=== PATIENT | male | born 1940 | race Caucasian/White ===

== ENCOUNTER → 2017-02-14 | Outpatient (POV) | payer MEDICARE, OTHER, SELFPAY | PROVIDERS: Referring Provider Internal Medicine; Visit Provider Internal Medicine | DX: R06.09 Other forms of dyspnea (principal); I48.91 Unspecified atrial fibrillation; I25.10 Atherosclerotic heart disease of native coronary artery without angina pectoris; R00.2 Palpitations; R94.31 Abnormal electrocardiogram [ECG] [EKG]; R53.83 Other fatigue | CPT/HCPCS: 36415; 85025; 93005 ==

== ENCOUNTER 2017-02-22 13:30 | Outpatient (RCR) | payer MEDICARE, OTHER, SELFPAY | END 2017-02-22 23:59 | LOC: PT 13:30 | PROVIDERS: Visit Provider Internal Medicine | DX: Z95.5 Presence of coronary angioplasty implant and graft (principal) | CPT/HCPCS: 93798 ==

== ENCOUNTER → 2017-02-27 09:50 | Outpatient (CLI) | payer MEDICARE, OTHER, SELFPAY ==
[2017-02-27 10:52] VITALS: PULSE 73; PULSE 77
== END ==
PROVIDERS: PCP Emergency Medicine; Visit Provider Internal Medicine
DX: R06.00 Dyspnea, unspecified (principal); I25.10 Atherosclerotic heart disease of native coronary artery without angina pectoris
CPT/HCPCS: 94060; 94640; 94726; 94729

== ENCOUNTER → 2017-06-19 15:56 | Outpatient (REF) | payer MEDICARE, SELFPAY ==
[2017-06-19 18:54] LABS: Basophils # 0.1 K/mm3 (0-0.2); Basophils % 0.8 % (0.1-2.0); Eosinophils # 0.4 K/mm3 (0.0-0.4); Eosinophils % 4.2 % (0.1-12.0); Hematocrit 44.6 % (42.0-52.0); Hemoglobin 14.5 g/dL (14.1-18.0); Lymphocytes # 1.4 K/mm3 (0.7-4.5); Lymphocytes % 16.7 K/mm3 (10-50); Mean Corpuscular HGB Conc 32.5 g/dL (31.8-35.4); Mean Corpuscular Hemoglobin 30.7 pg (27.0-31.2); Mean Corpuscular Volume 94.5 fl (80-94); Mean Platelet Volume 7.7 fl (7.4-10.4); Monocytes # 0.5 K/mm3 (0.1-1.0); Monocytes % 5.7 % (1.7-9.3); Neutrophils # 6.2 K/mm3 (1.8-7.8); Neutrophils % 72.6 % (37.0-80.0); Platelet Count 237 K/mm3 (142-424); Red Blood Count 4.72 M/mm3 (4.60-6.20); Red Cell Distribution Width 13.7 % (11.5-17.5); White Blood Count 8.6 K/mm3 (4.8-10.8)
[2017-06-19 20:28] LABS: Alanine Aminotransferase 46 U/L (12-78); Albumin Level 3.6 gm/dL (3.4-5.0); Albumin/Globulin Ratio 0.9 (1.1-1.8); Alkaline Phosphatase 178 U/L (46-116); Anion Gap 14.3 mEq/L (5-15); Aspartate Amino Transferase 35 U/L (15-37); Bilirubin,Total 0.5 mg/dL (0.2-1.0); Blood Urea Nitrogen 20 mg/dL (7-18); Calcium 9.3 mg/dL (8.5-10.1); Carbon Dioxide 25 mmol/L (21.0-32.0); Chloride 108 mmol/L (98-107); Creatinine,Serum 1.58 mg/dL (0.70-1.30); Estimated Glomerular Filt Rate 43 ml/min (>60); Free T4 (Free Thyroxine) 0.96 ng/dl (0.76-1.46); GFR (African American) 52 ML/MIN (>60); Globulin 3.8 gm/dl (1.3-3.2); Glucose 95 mg/dL (74-106); Potassium 4.3 mmoL/L (3.5-5.1); Sodium 143 mmol/L (136-145); Thyroid Stimulating Hormone 5.85 uIU/ml (0.358-3.740); Total Protein,Serum 7.4 gm/dL (6.4-8.2)
[2017-06-19 20:32] LABS: Erythrocyte Sedimentation Rate 16 mm/hr (0-20)
== END ==
LOC: LAB 15:56
PROVIDERS: Visit Provider Emergency Medicine
DX: Z77.22 Contact with and (suspected) exposure to environmental tobacco smoke (acute) (chronic) (principal); E07.9 Disorder of thyroid, unspecified; R53.83 Other fatigue
CPT/HCPCS: 80053; 84439; 84443; 85025; 85651

== ENCOUNTER → 2017-08-13 12:50 | Outpatient (CLI) | payer MEDICARE, OTHER, SELFPAY ==
--- NOTE | 2017-08-13 12:51 | MR_ITS ---
MR cervical spine wo con, MR 3-d myelogram/MRCP HISTORY: PT states he has been off balance X2-3 years. No neck pain. Off balance is worse when standing. ITS.REASON: neck pain ORDERING PHYSICIAN: Alexa Pratt MD PATIENT AGE: 77 years Comparison: None TECHNIQUE: Standard multiplanar multiecho sequences are performed without contrast. 3-D MIP and myelographic images are also rendered and reviewed FINDINGS: There is normal alignment with straightening of the cervical lordosis. Craniocervical junction has an unremarkable appearance. There is multilevel cervical spondylosis as described below. C2-C3: Mild degenerative disc disease C3-C4: Degenerative disc disease with bulging disc and a small broad-based left paracentral disc osteophyte complex with canal stenosis of 10 mm. There is severe left lateral recess and foraminal narrowing There is bilateral lateral recess and foraminal narrowing. This is worse on the left C4-C5: Degenerative disc disease with bulging disc with canal stenosis of 9 mm. The disc is slightly eccentric toward the right with moderate to severe right lateral recess and foraminal narrowing C5-C6: Degenerative disc disease with bulging disc with endplate osteophytes severe canal stenosis of 6 mm. There is mild compression upon the cord at this level with some Kinking of the cord. Severe bilateral lateral recess narrowing slightly greater on the right with bilateral foraminal narrowing. Type I endplate changes are present at C5-C6 C6-C7: Degenerative disc disease. There is a small right paracentral and foraminal disc protrusion/disc osteophyte complex with severe right-sided foraminal narrowing. There is moderate to severe left foraminal narrowing from uncovertebral hypertrophy. C7-T1: There is a small central disc herniation without impingement upon the cord. IMPRESSION: 1. Abnormal MRI of the cervical fine with multilevel degenerative disc disease and facet and uncovertebral arthrosis with bulging discs and disc protrusions/disc osteophyte complexes with varying levels of canal stenosis and lateral recess and foraminal narrowing. Please see above for detailed description at each level 2. The canal stenosis is most severe at C5-C6 where there is mild compression upon the cord with some keeping of the cord. The canal this level measures 6 mm. 3. Small central disc herniation at C7-T1 without impingement
[2017-08-15 13:55] LABS: Homocyst(e)ine 13.8 umol/L (0.0-15.0); Rapid Plasma Reagin Ab Titer Non Reactive (NonRea<1:1)
[2017-08-15 13:56] LABS: Folate 16.7 ng/mL (>3.0); Vitamin B12 465 pg/mL (232-1245)
[2017-08-15 15:26] LABS: Albumin 3.3 g/dL (2.9-4.4); Alpha-1-Globulin 0.3 g/dL (0.0-0.4); Alpha-2-Globulin 0.8 g/dL (0.4-1.0); Gamma Globulin 1.2 g/dL (0.4-1.8); Protein, Total 6.7 g/dL (6.0-8.5)
== END ==
PROVIDERS: PCP Emergency Medicine; Visit Provider Specialist
DX: M47.12 Other spondylosis with myelopathy, cervical region (principal); I25.10 Atherosclerotic heart disease of native coronary artery without angina pectoris; E07.9 Disorder of thyroid, unspecified; R26.0 Ataxic gait; N28.9 Disorder of kidney and ureter, unspecified; Z95.5 Presence of coronary angioplasty implant and graft
CPT/HCPCS: 36415; 72141; 76376; 82607; 82746; 83090; 84155; 84165; 86592

== ENCOUNTER → 2017-09-09 10:51 | Outpatient (POV) | payer MEDICARE, OTHER, SELFPAY | PROVIDERS: PCP Emergency Medicine; Visit Provider Specialist | DX: M47.12 Other spondylosis with myelopathy, cervical region (principal); R26.0 Ataxic gait | CPT/HCPCS: 95886; 95911 ==

== ENCOUNTER → 2017-10-03 13:28 | Outpatient (POV) | payer MEDICARE, SELFPAY | PROVIDERS: Visit Provider Neurological Surgery | DX: Z00.00 Encounter for general adult medical examination without abnormal findings (principal) ==

== ENCOUNTER → 2017-11-13 11:09 | Outpatient (CLI) | payer MEDICARE, SELFPAY ==
[2017-11-13 11:21] LABS: Microscopic, Urine URINE MICROSCOPIC (MICROSCOPIC)
[2017-11-13 11:42] LABS: Basophils # 0.1 K/mm3 (0-0.2); Basophils % 0.8 % (0.1-2.0); Eosinophils # 0.5 K/mm3 (0.0-0.4); Eosinophils % 7.7 % (0.1-12.0); Hematocrit 45.1 % (42.0-52.0); Hemoglobin 14.5 g/dL (14.1-18.0); Lymphocytes # 1.4 K/mm3 (0.7-4.5); Lymphocytes % 22.4 K/mm3 (10-50); Mean Corpuscular HGB Conc 32.1 g/dL (31.8-35.4); Mean Corpuscular Hemoglobin 29.8 pg (27.0-31.2); Mean Corpuscular Volume 92.8 fl (80-94); Mean Platelet Volume 7.3 fl (7.4-10.4); Monocytes # 0.3 K/mm3 (0.1-1.0); Monocytes % 5.7 % (1.7-9.3); Neutrophils # 3.9 K/mm3 (1.8-7.8); Neutrophils % 63.4 % (37.0-80.0); Platelet Count 227 K/mm3 (142-424); Red Blood Count 4.86 M/mm3 (4.60-6.20); Red Cell Distribution Width 13.3 % (11.5-17.5); White Blood Count 6.1 K/mm3 (4.8-10.8)
[2017-11-13 12:15] LABS: Albumin Level 3.4 gm/dL (3.4-5.0); Anion Gap 13.3 mEq/L (5-15); Blood Urea Nitrogen 15 mg/dL (7-18); Calcium 8.8 mg/dL (8.5-10.1); Carbon Dioxide 25 mmol/L (21.0-32.0); Chloride 107 mmol/L (98-107); Creatinine,Serum 1.61 mg/dL (0.70-1.30); Estimated Glomerular Filt Rate 42 ml/min (>60); GFR (African American) 51 ML/MIN (>60); Glucose 102 mg/dL (74-106); Phosphorous 3.2 mg/dL (2.4-4.9); Potassium 4.3 mmoL/L (3.5-5.1); Sodium 141 mmol/L (136-145)
[2017-11-13 14:04] LABS: Appearance,Urine CLEAR (Clear); Bilirubin,Urine Negative (Negative); Blood, Urine Negative (Negative); Color,Urine YELLOW (Yellow); Glucose,Urine (UA) Negative (Negative); Ketones,Urine Negative (Negative); Leukocyte Esterase,Urine Negative (Negative); Nitrate,Urine Negative (Negative); PH,Urine 6.5 (5.0-8.5); Protein,Urine Negative (Negative); Urobilinogen,Urine 0.2 EU/dl (0.2)
[2017-11-13 14:15] LABS: Creatinine,Urine Random 139 mg/dL (20-320); Total Protein,Urine Random 15.9 mg/dL (0.0-11.9)
[2017-11-13 14:16] LABS: Bacteria,Urine Trace /lpf
[2017-11-14 08:36] LABS: Vitamin D 25 Hydroxy 34.3 ng/mL (30.0-100.0)
[2017-11-14 16:21] LABS: Parathyroid Hormone Intact 17 pg/mL (15-65)
== END ==
PROVIDERS: PCP Emergency Medicine; Visit Provider Internal Medicine Nephrology
DX: N18.3 Chronic kidney disease, stage 3 (moderate) (principal)
CPT/HCPCS: 36415; 80069; 81001; 82570; 82652; 83970; 84155; 85025

== ENCOUNTER → 2017-11-21 13:19 | Outpatient (POV) | payer MEDICARE, SELFPAY | PROVIDERS: PCP Emergency Medicine; Visit Provider Internal Medicine Nephrology | DX: Z00.00 Encounter for general adult medical examination without abnormal findings (principal) ==

== ENCOUNTER 2018-04-30 15:00 | Outpatient (RCR) | payer MEDICARE, OTHER, SELFPAY | END 2018-04-30 15:05 | disposition home or self-care (01) | LOC: PT 15:00 | PROVIDERS: Visit Provider Neurological Surgery | DX: R26.89 Other abnormalities of gait and mobility (principal) | CPT/HCPCS: 97110; 97112; 97163 ==

== ENCOUNTER → 2018-05-06 12:48 | Outpatient (CLI) | payer MEDICARE, OTHER, SELFPAY ==
--- NOTE | 2018-05-06 12:53 | US_ITS ---
US kidney retroperitoneal comp HISTORY: Decreased renal function ITS.REASON: CKD III ORDERING PHYSICIAN: Richard Chauhan PATIENT AGE: 77 years Comparison: None FINDINGS: The right kidney is 10 x 4.6 cm. There is cortical thinning and some increase echogenicity of the cortex. No hydronephrosis. Small area of increased echogenicity present in the mid area of the right kidney posteriorly suggesting a calcification. The left kidney is 13 x 5 x 4 cm. In the midportion of left kidney there is a 6 x 6 cm area of rounded isoechogenicity. This is suspicious for left renal mass. Prominent column of Alberto is an additional consideration. Consider MRI of the kidneys without and with gadolinium enhancement for further evaluation in this patient with decreased renal function. No hydronephrosis. Cortical thinning is present on the left as well IMPRESSION: 1. Possible left renal mass. Suggest MRI without and with gadolinium enhancement for further evaluation 2. Bilateral renal cortical thinning with nonspecific calcification in the mid aspect of the right kidney
== END ==
PROVIDERS: PCP Emergency Medicine; Visit Provider Internal Medicine Nephrology
DX: N18.3 Chronic kidney disease, stage 3 (moderate) (principal)
CPT/HCPCS: 76770

== ENCOUNTER → 2018-05-26 10:05 | Outpatient (CLI) | payer MEDICARE, OTHER, SELFPAY ==
[2018-05-26 10:08] LABS: MANUAL DIFFERENTIAL MANUAL DIFFERENTIAL (MANUAL DIFF)
[2018-05-26 10:21] LABS: Basophils # 0.1 K/mm3 (0-0.2); Eosinophils # 1.1 K/mm3 (0.0-0.4); Eosinophils % 12.9 % (0.1-12.0); Hematocrit 46.1 % (42.0-52.0); Hemoglobin 15.4 g/dL (14.1-18.0); Lymphocytes # 1.8 K/mm3 (0.7-4.5); Lymphocytes % 22.2 % (10-50); Mean Corpuscular HGB Conc 33.4 g/dL (31.8-35.4); Mean Corpuscular Hemoglobin 30.1 pg (27.0-31.2); Mean Corpuscular Volume 90.2 fl (80-94); Monocytes # 0.4 K/mm3 (0.1-1.0); Monocytes % 4.3 % (1.7-9.3); Neutrophils # 4.9 K/mm3 (1.8-7.8); Neutrophils % 59.5 % (37.0-80.0); Platelet Count 234 K/mm3 (142-424); Red Blood Count 5.11 M/mm3 (4.60-6.20); Red Cell Distribution Width 13.9 % (11.5-17.5); White Blood Count 8.3 K/mm3 (4.8-10.8)
[2018-05-26 10:33] LABS: Troponin I < 0.02 ng/ml (0.00-0.06)
[2018-05-26 10:53] LABS: Eosinophils % 3 % (0-3); Lymphocytes % 18 % (10-50); Monocytes % 6 % (2-9); Neutrophils % 72 % (42-76); Platelet Estimate Normal; RBC Morphology Normal; Total Cells Counted 100
[2018-05-26 11:20] LABS: Anion Gap 17.1 mEq/L (5-15); Blood Urea Nitrogen 20 mg/dL (7-18); Calcium 9.3 mg/dL (8.5-10.1); Carbon Dioxide 24 mmol/L (21.0-32.0); Chloride 106 mmol/L (98-107); Creatinine,Serum 1.73 mg/dL (0.70-1.30); Estimated Glomerular Filt Rate 39 ml/min (>60); GFR (African American) 47 ML/MIN (>60); Glucose 104 mg/dL (74-106); Potassium 4.1 mmoL/L (3.5-5.1); Sodium 143 mmol/L (136-145)
== END ==
PROVIDERS: Visit Provider Nurse Practitioner Family
DX: E78.2 Mixed hyperlipidemia (principal); I10 Essential (primary) hypertension; I25.10 Atherosclerotic heart disease of native coronary artery without angina pectoris; R06.09 Other forms of dyspnea; R53.83 Other fatigue; Z77.22 Contact with and (suspected) exposure to environmental tobacco smoke (acute) (chronic); Z95.5 Presence of coronary angioplasty implant and graft
CPT/HCPCS: 36415; 80048; 84484; 85007; 85014; 85018; 85048; 85049

== ENCOUNTER 2018-06-03 12:54 | Outpatient (RCR) | payer MEDICARE, OTHER, SELFPAY | END 2018-08-29 13:12 | disposition home or self-care (01) | LOC: PT 12:54 | PROVIDERS: Visit Provider Internal Medicine | DX: Z95.5 Presence of coronary angioplasty implant and graft (principal) | CPT/HCPCS: 93798 ==

== ENCOUNTER → 2018-06-05 12:54 | Outpatient (CLI) | payer MEDICARE, OTHER, SELFPAY ==
--- NOTE | 2018-06-05 14:35 | XR_ITS ---
XR chest 2V HISTORY: ITS.REASON: SOB, ORDERING PHYSICIAN: Bret Shane MD PATIENT AGE: 78 years COMPARISON: None FINDINGS: The cardiomediastinal silhouette and pulmonary vascularity are within normal limits. There is a asymmetric density in right apex measuring 18 mm overlying the medial shaft of the right clavicle in the right first rib. While this could be related to a rib lesion, underlying pulmonary nodules also considered and chest CT is suggested for further evaluation. There are coronary artery stents. The remaining lungs are clear. No acute bony findings. There is mild wedging involving the T12 vertebral body which may be old. IMPRESSION: Spiculated 18 nodular density right apex suspicious for pulmonary nodule/neoplasm versus overlying rib lesion. Suggest chest CT with contrast for further evaluation
[2018-06-05 14:49] LABS: Basophils # 0.1 K/mm3 (0-0.2); Basophils % 1.5 % (0.1-2.0); Eosinophils # 0.4 K/mm3 (0.0-0.4); Eosinophils % 7.3 % (0.1-12.0); Hematocrit 45.3 % (42.0-52.0); Hemoglobin 14.8 g/dL (14.1-18.0); Lymphocytes # 1.6 K/mm3 (0.7-4.5); Lymphocytes % 25.7 % (10-50); Mean Corpuscular HGB Conc 32.6 g/dL (31.8-35.4); Mean Corpuscular Hemoglobin 29.5 pg (27.0-31.2); Mean Corpuscular Volume 90.4 fl (80-94); Mean Platelet Volume 7.2 fl (7.4-10.4); Monocytes # 0.3 K/mm3 (0.1-1.0); Monocytes % 4.6 % (1.7-9.3); Neutrophils # 3.7 K/mm3 (1.8-7.8); Neutrophils % 60.8 % (37.0-80.0); Platelet Count 258 K/mm3 (142-424); Red Blood Count 5.01 M/mm3 (4.60-6.20); Red Cell Distribution Width 14.1 % (11.5-17.5); White Blood Count 6.1 K/mm3 (4.8-10.8)
[2018-06-05 16:19] LABS: Anion Gap 16.2 mEq/L (5-15); Blood Urea Nitrogen 18 mg/dL (7-18); Calcium 9.2 mg/dL (8.5-10.1); Carbon Dioxide 23 mmol/L (21.0-32.0); Chloride 105 mmol/L (98-107); Creatinine,Serum 1.72 mg/dL (0.70-1.30); Estimated Glomerular Filt Rate 39 ml/min (>60); GFR (African American) 47 ML/MIN (>60); Glucose 95 mg/dL (74-106); Potassium 4.2 mmoL/L (3.5-5.1); Sodium 140 mmol/L (136-145)
== END ==
PROVIDERS: PCP Emergency Medicine; Visit Provider Internal Medicine
DX: R00.1 Bradycardia, unspecified (principal); R06.09 Other forms of dyspnea; I25.10 Atherosclerotic heart disease of native coronary artery without angina pectoris; R53.83 Other fatigue
CPT/HCPCS: 36415; 71046; 80048; 85025; 93225

== ENCOUNTER → 2018-06-11 12:47 | Outpatient (CLI) | payer MEDICARE, OTHER, SELFPAY ==
--- NOTE | 2018-06-11 12:49 | CA_ITS ---
PROCEDURE: 2-D M-mode and color Doppler study INDICATIONS FOR THE TEST: Chest pain + COPD Heart Murmur Tobacco Smoking Palpitations Fatigue+ Syncope Edema Hypertension+Diabetes Mellitus Rheumatic Fever SOB+PAUL Obesity Hyperlipidemia+ Family History HD Additional History bradycardia, stents,cad PATIENT INFORMATION HEIGHT:73 WEIGHT:158 GENDER: Male B/P:131/54 2-D/M-MODE INTERPRETATION: 2-D MEASUREMENTS OBSERVED VALUES IN CMS Right Ventricular Dimension (RVDd) 2.3 Interventricular Septum (Thickness)(IVsd) 1.0 Left Ventricular Internal Dimensions(LVIDd) 4.8 Left Ventricular Posterior Wall (Thickness)(LVPWd) 0.6 Aortic Root 2.8 Aortic Cusp Separation 2.0 Left Atrial Dimensions (LAD) 3.7 2D 1. Left atrium is qualitatively mildly enlarged, left ventricle is normal size, there is no concentric left ventricular hypertrophy, visually estimated ejection fraction 55% with no regional wall motion abnormality. 2. The right atrium and right ventricle are relatively normal size and function. 3. The aortic valve is thickened and calcified leaflet continue to display mobility. 4. The mitral and tricuspid valve leaflets are minimally thickened. 5. The pulmonic valve is poorly visualized. 6. No significant pericardial effusion noted. DOPPLER INTERROGATION: Doppler interrogation of the aortic, mitral and tricuspid valvular presence of mild aortic, mild mitral and tricuspid regurgitation, tricuspid regurgitation jet velocity is inadequate for calculation of the right ventricular systolic pressure, grade 1 diastolic dysfunction seen without tissue Doppler evidence of raised left atrial pressure. CONCLUSION: 1. Mildly enlarged left atrium, normal left ventricular size, visually estimated ejection fraction 55% with no regional wall motion abnormality, grade 1 diastolic dysfunction seen without tissue Doppler evidence of raised left atrial pressure. 2. Mild aortic, mild mitral and tricuspid regurgitation 3. No significant pericardial effusion noted.
== END ==
PROVIDERS: PCP Emergency Medicine; Visit Provider Urology
DX: I25.10 Atherosclerotic heart disease of native coronary artery without angina pectoris (principal)
CPT/HCPCS: 93306

== ENCOUNTER → 2018-06-12 14:39 | Outpatient (CLI) | payer MEDICARE, OTHER, SELFPAY | PROVIDERS: Visit Provider Internal Medicine Cardiovascular Disease | DX: R06.09 Other forms of dyspnea (principal) | CPT/HCPCS: 36415; 83880 ==

== ENCOUNTER → 2018-06-19 12:46 | Outpatient (POV) | payer MEDICARE, OTHER, SELFPAY ==
[2018-06-19 12:50] LABS: Microscopic, Urine URINE MICROSCOPIC (MICROSCOPIC)
[2018-06-19 13:47] LABS: Basophils # 0.1 K/mm3 (0-0.2); Basophils % 0.8 % (0.1-2.0); Eosinophils # 0.6 K/mm3 (0.0-0.4); Eosinophils % 6.6 % (0.1-12.0); Hematocrit 45.7 % (42.0-52.0); Hemoglobin 15.2 g/dL (14.1-18.0); Lymphocytes # 1.8 K/mm3 (0.7-4.5); Lymphocytes % 21.3 % (10-50); Mean Corpuscular HGB Conc 33.2 g/dL (31.8-35.4); Mean Corpuscular Hemoglobin 30.4 pg (27.0-31.2); Mean Corpuscular Volume 91.4 fl (80-94); Mean Platelet Volume 7.3 fl (7.4-10.4); Monocytes # 0.4 K/mm3 (0.1-1.0); Monocytes % 5.1 % (1.7-9.3); Neutrophils # 5.6 K/mm3 (1.8-7.8); Neutrophils % 66.3 % (37.0-80.0); Platelet Count 226 K/mm3 (142-424); Red Cell Distribution Width 14.1 % (11.5-17.5); White Blood Count 8.5 K/mm3 (4.8-10.8)
[2018-06-19 14:20] LABS: Appearance,Urine CLEAR (Clear); Bilirubin,Urine Negative (Negative); Blood, Urine Negative (Negative); Color,Urine YELLOW (Yellow); Glucose,Urine (UA) Negative (Negative); Ketones,Urine Negative (Negative); Leukocyte Esterase,Urine Negative (Negative); Nitrate,Urine Negative (Negative); PH,Urine 5.5 (5.0-8.5); Protein,Urine Negative (Negative); Urobilinogen,Urine 0.2 EU/dl (0.2)
[2018-06-19 14:23] LABS: Creatinine,Urine Random 130 mg/dL (20-320); Total Protein,Urine Random 19.6 mg/dL (0.0-11.9)
[2018-06-19 14:52] LABS: Albumin Level 3.9 gm/dL (3.4-5.0); Anion Gap 15.4 mEq/L (5-15); Blood Urea Nitrogen 18 mg/dL (7-18); Calcium 9.3 mg/dL (8.5-10.1); Carbon Dioxide 25 mmol/L (21.0-32.0); Chloride 103 mmol/L (98-107); Estimated Glomerular Filt Rate 42 ml/min (>60); GFR (African American) 51 ML/MIN (>60); Glucose 91 mg/dL (74-106); Phosphorous 3.1 mg/dL (2.4-4.9); Potassium 4.4 mmoL/L (3.5-5.1); Sodium 139 mmol/L (136-145); Uric Acid 5.1 mg/dL (2.6-7.2)
[2018-06-19 22:23] LABS: Bacteria,Urine Trace /lpf; Squamous Epithelial Cell,Urine Occasional #/hpf (0-5); WBC,Urine Occasional #/hpf (0-3)
[2018-06-21 20:40] LABS: Microalbumin, Urine 6.5 ug/mL (Not Estab.)
== END ==
PROVIDERS: Visit Provider Internal Medicine Nephrology
DX: N18.3 Chronic kidney disease, stage 3 (moderate) (principal)
CPT/HCPCS: 36415; 80069; 81001; 82043; 82570; 84155; 84550; 85025

== ENCOUNTER → 2018-06-26 13:33 | Outpatient (CLI) | payer MEDICARE, OTHER, SELFPAY ==
--- NOTE | 2018-06-26 13:34 | CT_ITS ---
CT chest wo con HISTORY: ITS.REASON: dyspnea, ex smoker, shortness of air, heart disease, abnormal chest x-ray suggesting right apical mass ORDERING PHYSICIAN: Darin Small MD PATIENT AGE: 78 years COMPARISON: None Technique: Axial images obtained. Sagittal, and coronal reformatted images are also generated and reviewed. All CT scans at the facility use one or more dose reduction, viz: automated exposure control, ma/kV adjustment per patient size (including targeted exams where dose is matched to indication, i.e. head), or iterative reconstruction technique. FINDINGS: There are scattered small nodes in the axilla and mediastinum and emma. No large nodes are apparent. There is a small hiatal hernia. Coronary artery calcifications and/or stents noted There is irregular increased soft tissue density in both lung apices probably related to biapical scarring. Short-term follow-up suggested to confirm. Centrilobular emphysema with COPD. Mild bronchial thickening diffuse in nature. There are scattered nonspecific opacities in the subpleural region. A small parenchymal opacity is present along the right minor fissure small focus of calcification. This area measures approximately 9 x 5 mm. In the right upper lobe medially there is a 7 mm opacity. Scattered scarring noted in the lung bases. No lobar consolidation or collapse. Upper abdominal and small hiatal hernia. There are degenerative changes in the thoracic spine with mild wedging involving T12 which appears chronic. IMPRESSION: 1. Centrilobular emphysema with COPD. 2. Biapical parenchymal opacities likely related to scarring. Six-month follow-up suggested to confirm stability. There are scattered small parenchymal pulmonary and subpleural opacities probably related to scarring. Six-month follow-up suggested. 3. Coronary artery disease
== END ==
PROVIDERS: PCP Emergency Medicine; Visit Provider Internal Medicine Cardiovascular Disease
DX: E07.9 Disorder of thyroid, unspecified (principal); E78.2 Mixed hyperlipidemia; I10 Essential (primary) hypertension; I25.10 Atherosclerotic heart disease of native coronary artery without angina pectoris; R06.09 Other forms of dyspnea; R53.83 Other fatigue; Z77.22 Contact with and (suspected) exposure to environmental tobacco smoke (acute) (chronic); Z87.891 Personal history of nicotine dependence; Z95.5 Presence of coronary angioplasty implant and graft
CPT/HCPCS: 71250

== ENCOUNTER → 2018-06-27 10:22 | Outpatient (CLI) | payer MEDICARE, OTHER, SELFPAY | PROVIDERS: PCP Emergency Medicine; Visit Provider Internal Medicine Nephrology | DX: N28.89 Other specified disorders of kidney and ureter (principal) ==

== ENCOUNTER → 2018-07-08 10:30 | Outpatient (CLI) | payer MEDICARE, OTHER, SELFPAY ==
--- NOTE | 2018-07-08 10:33 | MR_ITS ---
MR abdomen wo/w con INDICATION: ITS.REASON: LEFT RENAL MASS ORDERING PHYSICIAN: Richard Chauhan PATIENT AGE: 78 years COMPARISON: 06/26/2018, 05/06/2018 TECHNIQUE: Multiplanar multiecho sequences are without and with gadolinium enhancement FINDINGS: Previous ultrasound showed a possible mass within the left kidney in the mid aspect. There was a hypoechoic area at this region on the images submitted. There is no obvious renal mass. There is bilateral renal pelvic lipomatosis with a moderate amount of adipose tissue within both renal pelves simulating a left renal mass on ultrasound. No hydronephrosis. The liver, spleen, adrenal glands, pancreas, and gallbladder have an unremarkable appearance. No enhancing lesions are evident. IMPRESSION: No renal mass apparent. Negative MRI of the abdomen without contrast
--- NOTE | 2018-07-08 11:46 | HMH.ITSHM ---
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 []PAROXETINE AZOPT LUMIGAN ASPIRIN ATORVASTATIN CLOPIDOGREL LISINOPRIL
== END ==
PROVIDERS: PCP Emergency Medicine; Visit Provider Internal Medicine Nephrology
DX: N28.89 Other specified disorders of kidney and ureter (principal)
CPT/HCPCS: 74183; A9576

== ENCOUNTER → 2018-10-27 12:10 | Outpatient (CLI) | payer MEDICARE, OTHER, SELFPAY ==
[2018-10-27 12:54] LABS: Blood Urea Nitrogen 16 mg/dL (7-18); Creatinine,Serum 1.55 mg/dL (0.70-1.30); Estimated Glomerular Filt Rate 44 ml/min (>60); GFR (African American) 53 ML/MIN (>60)
[2018-10-28 10:32] LABS: Vitamin B12 491 pg/mL (232-1245)
[2018-10-31 17:10] LABS: AChR Binding Abs 0.08 nmol/L (0.00-0.24); AChR Blocking Abs 17 % (0-25); AChR Modulating Ab 14 % (0-20); Anti-Striation (muscle) Abs Negative (Neg:<1:40)
== END ==
PROVIDERS: Visit Provider Specialist
DX: H02.403 Unspecified ptosis of bilateral eyelids (principal); M47.812 Spondylosis without myelopathy or radiculopathy, cervical region; R26.9 Unspecified abnormalities of gait and mobility; R53.1 Weakness; G95.9 Disease of spinal cord, unspecified
CPT/HCPCS: 36415; 82565; 82607; 84238; 84520; 86255

== ENCOUNTER → 2018-10-29 15:35 | Outpatient (CLI) | payer MEDICARE, OTHER, SELFPAY ==
--- NOTE | 2018-10-29 15:39 | MR_ITS ---
PROCEDURE: MR CERVICAL SPINE WO CON CLINICAL INDICATION: neck pain, gait disturbance Neck pain, gait disturbance, worsening neck pain, prior cervical surgery COMPARISON: [facility] MR cervical spine wo con from 08/13/2017 TECHNIQUE: Standard multiplanar multiecho sequences are performed without contrast. 3-D MIP and myelographic images are also rendered and reviewed FINDINGS: There is straightening/slight reversal of the cervical lordosis. The cranial cervical junction has an unremarkable appearance. The C2-C3: Unremarkable. There is extensive artifact from prior cervical surgery from C3 to C6-C7. This obscures fine detail and is present bilaterally along posterior elements. There are no plain films for comparison. C3-C4: Degenerate disc disease with bulging disc with 3 mm anterolisthesis with bilateral foraminal narrowing. C4-C5: Extensive artifact. No canal stenosis or obvious foraminal narrowing. There has been improvement in the canal stenosis C5-C6: Degenerate disc disease with bulging disc with extensive artifact. There has been interval improvement in the canal stenosis. There does remain bulging disc with borderline narrowing of the canal with less cord impingement compared to the previous exam. C6-C7: Degenerate disc disease with bulging disc with a small right foraminal disc protrusion/disc osteophyte complex not significantly changed causing severe right lateral recess and foraminal narrowing. C7-T1: Bulging disc with small central disc protrusion which appears spine slightly smaller compared to the previous exam without impingement. The spinal cord has an unremarkable appearance. IMPRESSION: 1. Postsurgical changes with significant artifact obscuring fine detail. Laminectomy noted at C4 and C5. 2. Multilevel degenerative changes as detailed above. Please see above for detailed description at each level. 3. Persistent spinal stenosis at C5-C6. This however has shown improvement at C5-C6 and C6-C7 without significant cord impingement. 4. No change small right paracentral foraminal disc osteophyte complex at C6-C7 causing severe right-sided lateral recess and foraminal narrowing 5. The bulging disc with small central disc protrusion at C7-T1 is once again noted and appears slightly smaller Dictated by: Hair Zuñiga MD 10/31/2018 07:25 Electronically signed by Hair Zuñiga MD in [place] 10/31/2018 07:25
== END ==
PROVIDERS: PCP Emergency Medicine; Visit Provider Specialist
DX: H02.403 Unspecified ptosis of bilateral eyelids (principal); M47.812 Spondylosis without myelopathy or radiculopathy, cervical region; R26.9 Unspecified abnormalities of gait and mobility; R53.1 Weakness; M47.892 Other spondylosis, cervical region
CPT/HCPCS: 72141; 76376

== ENCOUNTER → 2018-12-05 11:52 | Outpatient (CLI) | payer MEDICARE, OTHER, SELFPAY ==
[2018-12-05 12:47] LABS: Anion Gap 14.2 mEq/L (5-15); Blood Urea Nitrogen 21 mg/dL (7-18); Calcium 9.1 mg/dL (8.5-10.1); Carbon Dioxide 27 mmol/L (21.0-32.0); Chloride 105 mmol/L (98-107); Creatinine,Serum 1.76 mg/dL (0.70-1.30); Estimated Glomerular Filt Rate 38 ml/min (>60); GFR (African American) 46 ML/MIN (>60); Glucose 107 mg/dL (74-106); Potassium 4.2 mmoL/L (3.5-5.1); Sodium 142 mmol/L (136-145)
== END ==
PROVIDERS: Visit Provider Internal Medicine Cardiovascular Disease
DX: R06.02 Shortness of breath (principal); E78.5 Hyperlipidemia, unspecified; I10 Essential (primary) hypertension; I25.10 Atherosclerotic heart disease of native coronary artery without angina pectoris; R06.09 Other forms of dyspnea; R53.83 Other fatigue; Z95.5 Presence of coronary angioplasty implant and graft
CPT/HCPCS: 36415; 80048; 83880

== ENCOUNTER → 2018-12-12 13:01 | Outpatient (CLI) | payer MEDICARE, OTHER, SELFPAY ==
[2018-12-12 15:09] LABS: Anion Gap 14.2 mEq/L (5-15); Blood Urea Nitrogen 17 mg/dL (7-18); Calcium 8.9 mg/dL (8.5-10.1); Carbon Dioxide 25 mmol/L (21.0-32.0); Chloride 110 mmol/L (98-107); Creatinine,Serum 1.58 mg/dL (0.70-1.30); Estimated Glomerular Filt Rate 43 ml/min (>60); GFR (African American) 52 ML/MIN (>60); Glucose 106 mg/dL (74-106); Potassium 4.2 mmoL/L (3.5-5.1); Sodium 145 mmol/L (136-145)
== END ==
PROVIDERS: Visit Provider Physician Assistant
DX: E78.5 Hyperlipidemia, unspecified (principal); I10 Essential (primary) hypertension; I25.10 Atherosclerotic heart disease of native coronary artery without angina pectoris; R06.09 Other forms of dyspnea; R53.83 Other fatigue; Z77.22 Contact with and (suspected) exposure to environmental tobacco smoke (acute) (chronic); Z95.5 Presence of coronary angioplasty implant and graft
CPT/HCPCS: 36415; 80048

== ENCOUNTER → 2019-01-09 10:45 | Outpatient (CLI) | payer MEDICARE, OTHER, SELFPAY ==
[2019-01-09 12:44] LABS: Blood Urea Nitrogen 20 mg/dL (7-18); Calcium 8.8 mg/dL (8.5-10.1); Carbon Dioxide 24 mmol/L (21.0-32.0); Chloride 105 mmol/L (98-107); Creatinine,Serum 1.64 mg/dL (0.70-1.30); Estimated Glomerular Filt Rate 41 ml/min (>60); GFR (African American) 50 ML/MIN (>60); Glucose 89 mg/dL (74-106); Sodium 138 mmol/L (136-145)
== END ==
PROVIDERS: Visit Provider Internal Medicine
DX: E78.5 Hyperlipidemia, unspecified (principal); I20.9 Angina pectoris, unspecified; R00.1 Bradycardia, unspecified; R06.02 Shortness of breath; I50.33 Acute on chronic diastolic (congestive) heart failure
CPT/HCPCS: 36415; 80048

== ENCOUNTER → 2019-02-06 07:47 | Outpatient (CLI) | payer MEDICARE, OTHER, SELFPAY ==
--- NOTE | 2019-02-06 07:50 | MR_ITS ---
PROCEDURE: MR LUMBAR SPINE WO CON CLINICAL INDICATION: NEUROPATHY,UNSTEADY GAIT, LOWER EXTREMITY WEAKNESS Bilateral leg numbness and weakness COMPARISON: MR CERVICAL SPINE WO CON from 10/29/2018 TECHNIQUE: Standard multiplanar multiecho sequences are performed without contrast. 3-D MIP and myelographic images are also rendered and reviewed FINDINGS: Spinal cord ends at the L1 level. There is wedging of T12 with loss of height centrally of approximately 40-50 percent. This does appear old. No retropulsion. There is straightening of the lumbar lordosis. T12-L1: Unremarkable. L1-L2: Degenerate disc disease with bulging disc which is eccentric toward the left with moderate left-sided lateral recess and foraminal narrowing. This does abut the left L2 nerve root. L2-L3: Degenerate disc disease with bulging disc with 4-5 mm retrolisthesis of L2 with bulging disc along with facet ligamentum hypertrophy with moderate to severe left-sided foraminal narrowing. There is mild bilateral lateral recess narrowing. L3-L4: Degenerate disc disease with bulging disc with mild retrolisthesis of L3 of 3 mm with facet and ligamentum hypertrophy with moderate to severe right-sided foraminal narrowing and moderate left foraminal narrowing. L4-5: Degenerate disc disease with bulging disc with facet ligamentum hypertrophy with moderate to severe bilateral foraminal narrowing. L5-S1: Degenerate disc disease with bulging disc with facet ligamentum hypertrophy with moderate right foraminal narrowing and severe left foraminal narrowing. The bulging disc is slightly eccentric toward the left. No extruded herniated disc evident IMPRESSION: Abnormal MRI of the lumbar spine with multilevel lumbar spondylosis with degenerative disc disease bulging discs and facet and ligamentum hypertrophy with lateral recess and foraminal narrowing. Please see above for detailed description at each level Dictated by: Hair Zuñiga MD 02/08/2019 19:12 Electronically signed by Hair Zuñiga MD in [place] 02/08/2019 19:12
--- NOTE | 2019-02-06 07:50 | MR_ITS ---
PROCEDURE: MR THORACIC SPINE WO CON CLINICAL INDICATION: NEUROPATHY,UNSTEADY GAIT, LOWER EXTREMITY WEAKNESS COMPARISON: No exams were available for comparison TECHNIQUE: Routine multiplanar multi echo sequences are performed without gadolinium enhancement. FINDINGS: Normal alignment. C6-C7: There is a small right paracentral disc protrusion and a small central disc protrusion also slightly eccentric to the left. These are imaged only in the axial plane. Small central disc protrusion C7-T1. Chronic wedging of T12. No acute fracture or dislocation. There is mild degenerative disc disease at T8-T9. No disc herniation. No canal stenosis dedicated MRI cervical spine suggested. IMPRESSION: . 1. Small right paracentral and small left paracentral disc protrusion at C6-C7 and small central disc protrusion C7-T1. Consider dedicated MRI of the cervical spine for further evaluation 2. Chronic wedging of T12 3. Mild degenerative disc disease T8-T9 Dictated by: Hair Zuñiga MD 02/08/2019 19:43 Electronically signed by Hair Zuñiga MD in [place] 02/08/2019 19:43
== END ==
PROVIDERS: PCP Emergency Medicine; Visit Provider Neurological Surgery
DX: R29.898 Other symptoms and signs involving the musculoskeletal system (principal); R26.81 Unsteadiness on feet; R26.89 Other abnormalities of gait and mobility; G62.9 Polyneuropathy, unspecified
CPT/HCPCS: 72146; 72148; 76376

== ENCOUNTER → 2019-03-05 16:27 | Outpatient (CLI) | payer MEDICARE, OTHER, SELFPAY ==
[2019-03-05 17:43] LABS: Anion Gap 18.2 mEq/L (5-15); Blood Urea Nitrogen 20 mg/dL (7-18); Calcium 8.9 mg/dL (8.5-10.1); Carbon Dioxide 21 mmol/L (21.0-32.0); Chloride 103 mmol/L (98-107); Creatinine,Serum 1.83 mg/dL (0.70-1.30); Estimated Glomerular Filt Rate 36 ml/min (>60); GFR (African American) 44 ML/MIN (>60); Glucose 93 mg/dL (74-106); Potassium 4.2 mmoL/L (3.5-5.1); Sodium 138 mmol/L (136-145)
== END ==
PROVIDERS: Visit Provider Internal Medicine Cardiovascular Disease
DX: R06.02 Shortness of breath (principal); I25.10 Atherosclerotic heart disease of native coronary artery without angina pectoris; R06.09 Other forms of dyspnea
CPT/HCPCS: 36415; 80048; 83880

== ENCOUNTER → 2019-03-30 16:02 | Outpatient (POV) | payer MEDICARE, OTHER, SELFPAY | PROVIDERS: Visit Provider Internal Medicine Nephrology | DX: Z00.00 Encounter for general adult medical examination without abnormal findings (principal) ==

== ENCOUNTER → 2019-04-07 11:14 | Outpatient (CLI) | payer MEDICARE, OTHER, SELFPAY ==
--- NOTE | 2019-04-07 11:27 | MR_ITS ---
PROCEDURE: MR ABDOMEN WO CON CLINICAL INDICATION: RENAL MASS, LEFT COMPARISON: MRI exam 07/08/2018 TECHNIQUE: Routine multiplanar multisequence exam FINDINGS: Was performed. There is an approximately 5 millimeter cortical cyst at the corticomedullary junction of the upper pole of the left kidney and a 2 millimeter cyst is seen in the lower pole of the right kidney. There is no solid renal lesion or other solid intra-abdominal organ lesion. No ascites lymphadenopathy or focal inflammatory process is apparent. There is some motion artifact degradation of images. A small amount of fluid signal is seen in the bilateral perinephric fat planes suggesting inflammation or edema. The findings could be secondary to recent cyst rupture. There is no focal urinoma IMPRESSION: Small cortical cysts of both kidneys with no solid intra-abdominal organ lesions or lymphadenopathy. Dictated by: Matteo Leyva 04/07/2019 13:31 Electronically signed by Matteo Leyva in [place] 04/07/2019 13:31
== END ==
PROVIDERS: PCP Emergency Medicine; Visit Provider Internal Medicine Nephrology
DX: N28.89 Other specified disorders of kidney and ureter (principal)
CPT/HCPCS: 74181

== ENCOUNTER → 2019-09-10 09:56 | Outpatient (CLI) | payer MEDICARE, OTHER, SELFPAY ==
[2019-09-10 10:17] LABS: Chloride 104 mmol/L (98-107); Potassium 3.9 mmoL/L (3.5-5.1); Sodium 138 mmol/L (136-145)
[2019-09-10 10:19] LABS: Blood Urea Nitrogen 17 mg/dl (9-20); Estimated Glomerular Filt Rate 42 ml/min (>60); GFR (African American) 51 ML/MIN (>60)
[2019-09-10 10:20] LABS: Alanine Aminotransferase 34 U/L (12-78); Albumin Level 3.8 g/dl (3.5-5.0); Alkaline Phosphatase 95 U/L (38-126); Anion Gap 11.9 mEq/L (5-15); Aspartate Amino Transferase 37 U/L (17-59); Bilirubin,Indirect 0.8 mg/dL (0.0-0.9); Bilirubin,Total 0.8 mg/dl (0.2-1.3); Bilirubin,Unconjugated 0.8 mg/dL (0.0-1.1); Calcium 9.4 mg/dl (8.4-10.2); Carbon Dioxide 26 mmol/L (22.0-30.0); Chol/HDL Ratio 2.8 (1-3.5); Cholesterol 126 mg/dl (140-200); Glucose 113 mg/dl (74-100); HDL Cholesterol 45 mg/dl (40-60); Triglycerides 79 mg/dl (30-150); VLDL Cholesterol 16 mg/dL (0-40)
[2019-09-10 10:31] LABS: Direct LDL Cholesterol 64.51 mg/dL (100-129)
== END ==
PROVIDERS: Visit Provider Urology
DX: E78.5 Hyperlipidemia, unspecified (principal); I49.3 Ventricular premature depolarization; J44.9 Chronic obstructive pulmonary disease, unspecified; N18.3 Chronic kidney disease, stage 3 (moderate); R06.02 Shortness of breath; I12.9 Hypertensive chronic kidney disease with stage 1 through stage 4 chronic kidney disease, or unspecified chronic kidney disease; Z87.891 Personal history of nicotine dependence
CPT/HCPCS: 36415; 80048; 80061; 80076

== ENCOUNTER → 2019-09-17 10:50 | Outpatient (CLI) | payer MEDICARE, OTHER, SELFPAY ==
[2019-09-17 11:55] LABS: NT Pro Brain Natriuretic Pep. 200 pg/mL (0-450)
== END ==
PROVIDERS: Physician Assistant; Visit Provider Internal Medicine
DX: R06.02 Shortness of breath (principal)
CPT/HCPCS: 36415; 83880

== ENCOUNTER 2019-09-23 15:00 | Outpatient (RCR) | payer MEDICARE, OTHER, SELFPAY | END 2019-09-23 16:00 | disposition home or self-care (01) | LOC: PT 15:00 | PROVIDERS: PCP Emergency Medicine; Visit Provider Neurological Surgery | DX: R26.89 Other abnormalities of gait and mobility (principal); Z98.1 Arthrodesis status | CPT/HCPCS: 97110; 97112; 97163; 97164; 97530 ==

== ENCOUNTER 2019-09-24 08:41 | Day surgery (SDC) | payer MEDICARE, OTHER, SELFPAY ==
[2019-09-24 08:44] VITALS: BMI 21.4
[2019-09-24 09:05] LABS: Basophils # 0.1 K/mm3 (0-0.2); Eosinophils # 0.7 K/mm3 (0.0-0.4); Eosinophils % 7.3 % (0.1-12.0); Hematocrit 45.9 % (42.0-52.0); Hemoglobin 15.2 g/dL (14.1-18.0); Lymphocytes # 2.1 K/mm3 (0.7-4.5); Lymphocytes % 22.5 % (10-50); Mean Corpuscular HGB Conc 33.1 g/dL (31.8-35.4); Mean Corpuscular Hemoglobin 31.8 pg (27.0-31.2); Mean Corpuscular Volume 96.2 fl (80-94); Mean Platelet Volume 7.6 fl (7.4-10.4); Monocytes # 0.5 K/mm3 (0.1-1.0); Monocytes % 5.3 % (1.7-9.3); Neutrophils # 5.8 K/mm3 (1.8-7.8); Neutrophils % 63.8 % (37.0-80.0); Platelet Count 239 K/mm3 (142-424); Red Blood Count 4.77 M/mm3 (4.60-6.20); Red Cell Distribution Width 13.8 % (11.5-17.5); White Blood Count 9.1 K/mm3 (4.8-10.8)
[2019-09-24 09:07] VITALS: BP 119/81; PULSE 63; RESP 16; TEMP 36.8; O2SAT 97
[2019-09-24 09:15] LABS: Anion Gap 15.5 mEq/L (5-15); Blood Urea Nitrogen 20 mg/dl (9-20); Calcium 9.6 mg/dl (8.4-10.2); Carbon Dioxide 23 mmol/L (22.0-30.0); Chloride 104 mmol/L (98-107); Creatinine Clearance Estimated 39 mL/min (50-200); Estimated Glomerular Filt Rate 42 ml/min (>60); GFR (African American) 51 ML/MIN (>60); Glucose 103 mg/dl (74-100); Potassium 3.5 mmoL/L (3.5-5.1); Sodium 139 mmol/L (136-145)
[2019-09-24 09:43] VITALS: BP 120/61; PULSE 60; PULSE 62; RESP 16; O2SAT 94
[2019-09-24 09:45] VITALS: BP 116/65; PULSE 58; RESP 16; O2SAT 91
[2019-09-24 09:50] VITALS: BP 125/76; PULSE 59; RESP 16; O2SAT 94
[2019-09-24 09:55] VITALS: BP 127/62; PULSE 58; RESP 16; O2SAT 92
[2019-09-24 10:10] VITALS: BP 128/62; PULSE 58; RESP 16; O2SAT 91
--- NOTE | 2019-09-24 11:00 | IR_ITS ---
APPROVED REPORT Patient Location: Outpatient Building Operator: ZACHERY Alvarenga RT (R) PROCEDURES Right internal jugular vein access Right heart catheterization INDICATION Pulmonary hypertension Informed consent was obtained prior to the procedure. COMPLICATIONS NONE Estimated Blood Loss: LESS THAN 10 ML TECHNIQUE One percent lidocaine was used to anesthetize the right anterior aspect of the neck. A palaeontologist needle was used to identify the right internal jugular vein. Following this a larger cannulation needle was used to cannulate the right internal jugular vein and a wire was passed into the vein. Prior to the 7 Bulgarian sheath being inserted the wire was confirmed under fluoroscopic guidance to be in the inferior vena cava. A 7 Bulgarian sheath was introduced and a Henry-Kayleigh catheter was floated using hemodynamic waveforms in the pulmonary artery, right ventricle , and right atrium. Saturations were obtained in the pulmonary artery and the right atrium. At the end of the procedure the patient was transferred to the postop holding area in stable condition for sheath removal. ANGIOGRAPHIC RESULTS Right atrial pressure 3 mmHg Pulmonary artery pressure 25/8 mmHg Pulmonary artery occlusion pressure 7 mmHg Right atrial saturation 81% Pulmonary artery saturation 81% IMPRESSION Essentially normal right-sided filling pressures with no evidence of intra-cardiopulmonary shunt PLAN 1. Medical management Electronically signed by : Bret Shane, 09/24/2019 09:34:24
[2019-09-24 16:12] LABS: CATHL Arterial O2 SAT 80.6 % (90-100); CATHL Venous O2 SAT 81.3 % (75-80)
== END 2019-09-24 10:36 | disposition home or self-care (01) ==
LOC: CATHLAB 08:42
PROVIDERS: PCP Emergency Medicine; Visit Provider Internal Medicine
DX: E78.2 Mixed hyperlipidemia (principal); I25.10 Atherosclerotic heart disease of native coronary artery without angina pectoris; I27.20 Pulmonary hypertension, unspecified; N18.3 Chronic kidney disease, stage 3 (moderate); I13.0 Hypertensive heart and chronic kidney disease with heart failure and stage 1 through stage 4 chronic kidney disease, or unspecified chronic kidney disease; I50.30 Unspecified diastolic (congestive) heart failure; Z79.52 Long term (current) use of systemic steroids; J44.9 Chronic obstructive pulmonary disease, unspecified; Z95.5 Presence of coronary angioplasty implant and graft
CPT/HCPCS: 80048; 82810; 85025; 93451; 99152; C1894; J1644

== ENCOUNTER → 2019-10-13 16:39 | Outpatient (CLI) | payer MEDICARE, OTHER, SELFPAY ==
[2019-10-13 16:59] LABS: Basophils # 0.1 K/mm3 (0-0.2); Basophils % 0.5 % (0.1-2.0); Eosinophils # 0.4 K/mm3 (0.0-0.4); Eosinophils % 4.1 % (0.1-12.0); Hematocrit 43.7 % (42.0-52.0); Hemoglobin 15.1 g/dL (14.1-18.0); Lymphocytes # 1.5 K/mm3 (0.7-4.5); Mean Corpuscular HGB Conc 34.6 g/dL (31.8-35.4); Mean Corpuscular Hemoglobin 31.9 pg (27.0-31.2); Mean Corpuscular Volume 92.1 fl (80-94); Mean Platelet Volume 8.7 fl (7.4-10.4); Monocytes # 0.5 K/mm3 (0.1-1.0); Neutrophils # 6.9 K/mm3 (1.8-7.8); Neutrophils % 74.3 % (37.0-80.0); Platelet Count 259 K/mm3 (142-424); Red Blood Count 4.75 M/mm3 (4.60-6.20); Red Cell Distribution Width 13.7 % (11.5-17.5); White Blood Count 9.2 K/mm3 (4.8-10.8)
[2019-10-13 20:24] LABS: Alanine Aminotransferase 47 U/L (12-78); Albumin Level 4.3 g/dl (3.5-5.0); Albumin/Globulin Ratio 1.2 (1.1-1.8); Alkaline Phosphatase 166 U/L (38-126); Anion Gap 18.9 mEq/L (5-15); Aspartate Amino Transferase 51 U/L (17-59); Bilirubin,Total 0.9 mg/dl (0.2-1.3); Blood Urea Nitrogen 19 mg/dl (9-20); Calcium 9.9 mg/dl (8.4-10.2); Carbon Dioxide 23 mmol/L (22.0-30.0); Chloride 104 mmol/L (98-107); Chol/HDL Ratio 2.8 (1-3.5); Cholesterol 152 mg/dl (140-200); Estimated Glomerular Filt Rate 39 ml/min (>60); GFR (African American) 48 ML/MIN (>60); Globulin 3.5 g/dL (1.3-3.2); Glucose 85 mg/dl (74-100); HDL Cholesterol 54 mg/dl (40-60); Potassium 4.9 mmoL/L (3.5-5.1); Sodium 141 mmol/L (136-145); Total Protein,Serum 7.8 g/dl (6.3-8.2); Triglycerides 117 mg/dl (30-150); VLDL Cholesterol 23 mg/dL (0-40)
[2019-10-13 20:36] LABS: Direct LDL Cholesterol 73.11 mg/dL (100-129)
[2019-10-13 20:42] LABS: 25-OH Vitamin D, Total 31.1 ng/mL (30-100)
[2019-10-13 20:43] LABS: Free T4 (Free Thyroxine) 1.15 ng/dl (0.78-2.19)
[2019-10-13 20:56] LABS: Thyroid Stimulating Hormone 4.81 uIU/mL (0.465-4.68)
== END ==
PROVIDERS: Visit Provider Emergency Medicine
DX: R53.83 Other fatigue (principal); E55.9 Vitamin D deficiency, unspecified; E78.5 Hyperlipidemia, unspecified
CPT/HCPCS: 80053; 80061; 82306; 84439; 84443; 85025

== ENCOUNTER → 2019-10-15 14:45 | Outpatient (CLI) | payer MEDICARE, OTHER, SELFPAY ==
[2019-10-15 14:48] LABS: Microscopic, Urine URINE MICROSCOPIC (MICROSCOPIC)
[2019-10-15 15:02] LABS: Basophils % 0.3 % (0.1-2.0); Eosinophils # 0.4 K/mm3 (0.0-0.4); Eosinophils % 3.6 % (0.1-12.0); Hematocrit 42.7 % (42.0-52.0); Hemoglobin 14.2 g/dL (14.1-18.0); Lymphocytes # 1.5 K/mm3 (0.7-4.5); Lymphocytes % 14.2 % (10-50); Mean Corpuscular HGB Conc 33.4 g/dL (31.8-35.4); Mean Corpuscular Hemoglobin 31.3 pg (27.0-31.2); Mean Corpuscular Volume 93.9 fl (80-94); Mean Platelet Volume 8.5 fl (7.4-10.4); Monocytes # 0.5 K/mm3 (0.1-1.0); Neutrophils % 76.9 % (37.0-80.0); Platelet Count 226 K/mm3 (142-424); Red Blood Count 4.55 M/mm3 (4.60-6.20); Red Cell Distribution Width 13.6 % (11.5-17.5); White Blood Count 10.4 K/mm3 (4.8-10.8)
[2019-10-15 15:03] LABS: Appearance,Urine CLEAR (Clear); Bilirubin,Urine Negative (Negative); Blood, Urine Negative (Negative); Color,Urine YELLOW (Yellow); Glucose,Urine (UA) Negative (Negative); Ketones,Urine Negative (Negative); Leukocyte Esterase,Urine Negative (Negative); Nitrate,Urine Negative (Negative); Protein,Urine Negative (Negative); Specific Gravity, Urine 1.025 (1.005-1.030)
[2019-10-15 15:47] LABS: Squamous Epithelial Cell,Urine Occasional #/hpf (0-5); WBC,Urine Occasional #/hpf (0-3)
[2019-10-15 15:48] LABS: Bacteria,Urine Trace /lpf
[2019-10-15 15:55] LABS: Chloride 106 mmol/L (98-107); Sodium 139 mmol/L (136-145)
[2019-10-15 15:56] LABS: Albumin Level 3.8 g/dl (3.5-5.0); Potassium 4.4 mmoL/L (3.5-5.1)
[2019-10-15 15:58] LABS: Anion Gap 13.4 mEq/L (5-15); Blood Urea Nitrogen 19 mg/dl (9-20); Carbon Dioxide 24 mmol/L (22.0-30.0); Estimated Glomerular Filt Rate 42 ml/min (>60); GFR (African American) 51 ML/MIN (>60)
[2019-10-15 15:59] LABS: Calcium 9.4 mg/dl (8.4-10.2); Glucose 101 mg/dl (74-100); Phosphorous 3.4 mg/dl (2.5-4.5)
== END ==
PROVIDERS: Visit Provider Internal Medicine Nephrology
DX: N18.3 Chronic kidney disease, stage 3 (moderate) (principal)
CPT/HCPCS: 36415; 80069; 81001; 85025

== ENCOUNTER → 2019-11-05 13:33 | Outpatient (CLI) | payer MEDICARE, OTHER, SELFPAY ==
--- NOTE | 2019-11-05 13:33 | MR_ITS ---
PROCEDURE: MR HEAD/BRAIN WO CON CLINICAL INDICATION: Ataxia Pt. c/o vertigo for years. Prior MRI brain 04/19/2016 COMPARISON: MR [facility] MRI-BRAIN W/WO from 04/12/2016 TECHNIQUE: Routine multiplanar multi echo sequences are performed without gadolinium enhancement. FINDINGS: No midline shift, mass effect, intracranial hemorrhage, or hydrocephalus is evident. There is generalized atrophy with a few periventricular and subcortical T2 white matter hyperintensities. The cerebellopontine angle, cerebellum, and brainstem have an unremarkable appearance. There is a small cystic area in the left putamen area at 7 mm and may be due to small choroidal fissure cyst, cystic encephalomalacia from an old lacunar infarction, or prominent perivascular dilated space. The pituitary, optic chiasm, corpus callosum, and craniocervical junction have an unremarkable appearance. No mastoid effusion or sinus air-fluid level. IMPRESSION: No acute intracranial findings. Dictated by: Hair Zuñiga MD 11/06/2019 12:45 Hair Zuñiga MD in [place] 11/06/2019 12:45
== END ==
PROVIDERS: PCP Emergency Medicine; Visit Provider Specialist
DX: R27.0 Ataxia, unspecified (principal)
CPT/HCPCS: 70551

== ENCOUNTER → 2019-11-10 11:08 | Outpatient (CLI) | payer MEDICARE, OTHER, SELFPAY ==
[2019-11-10 13:08] LABS: Coronavirus 19 IgG Antibody Negative (Negative); Coronavirus 19 IgM Antibody Negative (Negative)
== END ==
PROVIDERS: Visit Provider Specialist
DX: Z01.89 Encounter for other specified special examinations (principal)
CPT/HCPCS: 36415; 86328

== ENCOUNTER → 2019-11-11 20:11 | Outpatient (CLI) | payer MEDICARE, OTHER, SELFPAY | PROVIDERS: PCP Emergency Medicine; Visit Provider Specialist | DX: G47.33 Obstructive sleep apnea (adult) (pediatric) (principal); G47.10 Hypersomnia, unspecified; I10 Essential (primary) hypertension | CPT/HCPCS: 95810 ==

== ENCOUNTER 2020-01-28 15:00 | Outpatient (RCR) | payer MEDICARE, OTHER, SELFPAY ==
--- NOTE | 2019-11-16 10:55 | HMH.PTOPEV ---
PT Outpatient Evaluation Rehab PT Outpatient Evaluation Start: 11/16/19 10:21 Freq: Status: Active Protocol: Document 11/16/19 10:33 [place] (Rec: 11/16/19 10:54 [facility] [id number]) Electronically Signed By Quincy Colvin, PT 11/16/19 10:33 Outpatient Therapy Subjective History Subjective History Pt reports insidious onset B LE weakness beginning ~3 yrs ago. Pt reports intermittent N &T in B feet, and 'it feels like I'm walking on air sometimes'. Pt reports severe weakness in B ankles/feet, ' causes me to be evry unstable, and get tired very easily'. MRI of lumbar spine has revealed multi level DDD. PMH: cervical fusion sx. ~1 yr ago . Chief Complaint Gives out/Unstable,Paresthesia ,Weakness Symptom Type Ache,Dull,Numbness,Tingling Symptoms Relieved By Rest/Positioning Symptoms Aggravated By Physical Activity Prior Functional Limitations Standing,Walking,Stairs, Balance Current Functional Limitations Standing,Walking,Stairs, Balance Symptom Description Intermittent Level of pain today (0-10) 3 Pain scale - at its best (0-10) 0 Pain scale - at its worst (0-10) 4 Lumbopelvic Eval Posture Thoracic Spine Posture Standing Position Flattened Lumbar Spine Posture Standing Position Flattened Assistive device Assistive Devices None / NA Gait Observation General Gait Pattern Observation Wide Based Gait,Ataxic Gait Manual Muscle Test Bilateral Knee Extension Strength Grade 5 Normal Knee Flexion Strength Grade 4 Good Hip Flexion Strength Grade 5 Normal Hip Abduction Strength Grade 4 Good Hip Adduction Strength Grade 4 Good Hip External Rotation Strength Grade 4 Good Extensor Hallucis Longus Strength Grade 3+ Fair+ Ankle Dorsiflexion Strength Grade 3+ Fair+ Gastronemius/Soleus Strength Grade 3+ Fair+ DTR Rt Patellar 1+ Lt Patellar 1+ Rt Gastroc/Soleus 0 Lt Gastroc/Soleus 0 Altered Sensation Bilateral LE Dermatome Level L4,L5 Comment stocking pattern-decreased Tinetti Sitting Balance Sitting Balance Steady, safe Arising from Chair Ability to Arise Able, w/o using arms Attempts to Arise Able, requires >1 attempt Standing Balance Immediate Standing Balance Steady with barnett
--- NOTE | 2019-12-21 15:54 | HMH.RHREAS ---
Rehab Reassessment Rehab OP Re-assessment Start: 12/21/19 14:59 Freq: Status: Active Protocol: Document 12/21/19 14:59 [place] (Rec: 12/21/19 15:38 [email or web address] [id number]) Electronically Signed By Quincy Colvin, PT 12/21/19 14:59 Rehab Re-assessment Subjective Subjective Pt reports improved standing/ walking endurance and balance since I Eval, and reports no pain in BLE's on VAS. Objective Objective Notes MMT: B HIP FLX 5/5, KNEE FLX/ EXT 5/5, B HIP IR/ER 4+/5, B HIP ABD/EXT/ADD 4/5 TINETTI:18 STANDING/WALKING ENDURANCE DURING TE: 12MIN Assessment Progress Assessment Progressing as Expected Assessment Notes PT W/IMPROVED B LE STRENGTH, TINETTI SCORE, AND WT. BEARING ENDURANCE W/AQUATIC THERAPY Patient goals met STG'S 06/24 LTG'S 04/25 Goals Not Met STG'S 03/27, LTG'S 06/25 Plan Plan PT TO CONT. W/SKILLED P.T. TO MAKE FURTHER IMPROVEMENTS IN STRENGTH, BALANCE, AND ENDURANCE TO ALLOW FOR OPTIMAL FUNCTION Frequency of Therapy 2-3X/WK Duration of therapy 6-8 WKS Time and Billing Re-Eval Time 15 Re-Eval Billing Units 0 PHYSICIAN CERTIFICATION: I certify the specified therapy services for Kalia Magdaleno are required, authorized, and reviewed every 30 days.
--- NOTE | 2020-01-25 16:13 | HMH.RHREAS ---
Rehab Reassessment Rehab OP Re-assessment Start: 12/21/19 14:59 Freq: Status: Active Protocol: Document 01/25/20 16:08 [place] (Rec: 01/25/20 16:11 [place] [id number]) Electronically Signed By Quincy Colvin, PT 01/25/20 16:08 Rehab Re-assessment Subjective Subjective Pt reports improved standing/ walking endurance at home and in community since last reassessment, and reports no pain in BLE's on VAS. Pt also reports improved ability 'to breath' while executing aquatic therapy as opposed to land-based TE's. Objective Objective Notes MMT: B HIP FLX 5/5, KNEE FLX/ EXT 5/5, B HIP IR/ER 4+/5, B HIP ABD/EXT/ADD 4+-5/5 TINETTI:21 STANDING/WALKING ENDURANCE DURING TE: 15MIN Assessment Progress Assessment Progressing as Expected Assessment Notes PT W/IMPROVED B LE STRENGTH, TINETTI SCORE, AND WT. BEARING ENDURANCE W/AQUATIC THERAPY Patient goals met STG'S 08/24 LTG'S 05/26 Goals Not Met LTG'S 05/26 Plan Plan PT TO CONT. W/SKILLED P.T. TO MAKE FURTHER IMPROVEMENTS IN STRENGTH, BALANCE, AND ENDURANCE TO ALLOW FOR OPTIMAL FUNCTION Frequency of Therapy 1-2x/wk Duration of therapy 2-4wks Time and Billing Re-Eval Time 15 Re-Eval Billing Units 0 PHYSICIAN CERTIFICATION: I certify the specified therapy services for Kalia Magdaleno are required, authorized, and reviewed every 30 days.
== END 2020-01-28 15:05 | disposition home or self-care (01) ==
LOC: PT 15:00
PROVIDERS: PCP Emergency Medicine; Visit Provider Specialist
DX: M47.12 Other spondylosis with myelopathy, cervical region (principal); D51.8 Other vitamin B12 deficiency anemias
CPT/HCPCS: 97110; 97112; 97113; 97163; 97164

== ENCOUNTER → 2020-02-26 09:53 | Outpatient (CLI) | payer MEDICARE, OTHER, SELFPAY ==
--- NOTE | 2020-02-26 09:54 | CA_ITS ---
APPROVED REPORT EXAM: Comprehensive 2D, Doppler, and color-flow Echocardiogram News Photographer: Denisse Huston, RT(R) Ht: 6 ft 0 in Wt: 160lbs BSA: 1.94 BP: 115/60 mmHg Indications: SOA,LAURA,CAD,STENTS,COPD,EX SMOKER,PALPS,HTN,HLD BUBBLE STUDY Echo Enhancing Agent Indication: Rule out Shunt Agent(s) / Amount(s) Used: Agitated Saline 10 cc Comments: APPEARS NEGATIVE 2D Dimensions LVOT 2.23 cm (M/F) 1.5-2.5 M-Mode Dimensions RVDd 2.51 cm (0.9-2.6) LA Diam 3.72 cm (1.9-4.0) LVDd 5.36 cm (3.5-5.7) Ao Diam 3.30 cm (2.0-3.7) LVDs 3.73 cm (3.5-5.7) IVSd 0.95 cm (0.6-1.1) PWd 0.57 cm (0.6-1.1) EF (Teich) 57.30% FS 30.40% EDV (Teich) 138.90 mL ESV (Teich) 59.30 mL LV Diastology E Decel Time 303.00 (160-240 msec) E/A Ratio 0.7 MED E' 7.00 (< 7 cm/sec) E'/MED E' Ratio 8.01 (>14) LAT E' 8.70 (<10 cm/sec) E/LAT E' Ratio 6.45 (>14) Aortic Valve AI PHT 1172.00 ms Mitral Valve MV E Max Brian. 56.00 (40-130 cm/s) MV A Velocity 86.00 (40-130 cm/s) E/A Ratio 0.65 MV Decel. Time 303.00 (160-240 ms) MV PHT 89.00 ms Pulmonary Valve PV Peak Velocity 109.00 (50-150 cm/s) Tricuspid Valve TR P. Velocity 305.00 cm/s RAP Estimate 10.00 mmHg RVSP 47.20 mmHg Left Ventricle Left atrium is mildly enlarged, left ventricle is normal size, mild concentric left ventricular hypertrophy, visually estimated ejection fraction 55% with no regional wall motion abnormality, grade 1 diastolic dysfunction seen without tissue Doppler evidence of raise left atrial pressure. Right Ventricle Right atrium and right ventricle are mildly enlarged with normal contractility. Atria Intra-atrial septum is intact, there is no flow across the entire septum, agitated saline contrast fails to identify intracardiac shunt. Aortic Valve Aortic valve is minimally thickened and fibrosed, there is no aortic stenosis, there is mild aortic insufficiency. Mitral Valve Mitral valve leaflets are minimally thickened, there is mild mitral regurgitation. Tricuspid Valve Tricuspid valve is grossly normal, there is mild tricuspid regurgitation, calculated right ventricular systolic pressure is 47 mmHg. Pulmonic Valve Pulmonic valve is poorly visualized. Great Vessels Aortic root is normal size. Pericardium No significant pericardial effusion noted. Conclusion 1. Mild biatrial enlargement normal left ventricular size, mild concentric left ventricular hypertrophy, visually estimated ejection fraction 55% with no regional wall motion abnormality, grade 1 diastolic dysfunction seen without tissue Doppler evidence of raise left atrial pressure. 2. Mildly enlarged right ventricle with normal contractility. 3. Thickened and calcified aortic valve without aortic stenosis, there is mild aortic insufficiency. 4. Mild mitral and tricuspid regurgitation, calculated right ventricular systolic pressure is 47 mmHg. 5. No significant pericardial effusion noted. Electronically signed by : Darin Small, 02/29/2020 11:38:54
--- NOTE | 2020-02-26 10:20 | PC.NURSE ---
PFT completed without incident. Pt given Albuterol 0.083% via hand held nebulizer per written protocol, Pt tolerated tx well.
== END ==
PROVIDERS: PCP Emergency Medicine; Visit Provider Internal Medicine Pulmonary Disease
DX: I51.89 Other ill-defined heart diseases (principal); R06.00 Dyspnea, unspecified; R93.89 Abnormal findings on diagnostic imaging of other specified body structures
CPT/HCPCS: 93306; 94060; 94618; 94726; 94729

== ENCOUNTER → 2020-03-01 12:11 | Outpatient (CLI) | payer MEDICARE, OTHER, SELFPAY ==
[2020-03-01 13:15] LABS: Basophils # 0.1 K/mm3 (0-0.2); Basophils % 0.8 % (0.1-2.0); Eosinophils # 0.4 K/mm3 (0.0-0.4); Eosinophils % 4.3 % (0.1-12.0); Hematocrit 49.8 % (42.0-52.0); Hemoglobin 15.9 g/dL (14.1-18.0); Lymphocytes # 1.3 K/mm3 (0.7-4.5); Lymphocytes % 12.5 % (10-50); Mean Corpuscular HGB Conc 31.9 g/dL (31.8-35.4); Mean Corpuscular Hemoglobin 31.1 pg (27.0-31.2); Mean Corpuscular Volume 97.3 fl (80-94); Mean Platelet Volume 8.1 fl (7.4-10.4); Monocytes # 0.5 K/mm3 (0.1-1.0); Monocytes % 4.4 % (1.7-9.3); Neutrophils # 7.8 K/mm3 (1.8-7.8); Platelet Count 295 K/mm3 (142-424); Red Blood Count 5.12 M/mm3 (4.60-6.20); Red Cell Distribution Width 14.3 % (11.5-17.5)
[2020-03-01 13:37] LABS: D-Dimer 1.06 ug/mL (0.0-0.5)
[2020-03-01 13:50] LABS: Erythrocyte Sedimentation Rate 19 mm/hr (0-20)
[2020-03-01 14:14] LABS: Uric Acid 6.3 mg/dl (3.5-8.5)
[2020-03-01 14:19] LABS: C-Reactive Protein 2.8 mg/L (0-4)
[2020-03-03 12:25] LABS: RA Latex Turbid. <10.0 IU/mL (0.0-13.9)
[2020-03-03 13:25] LABS: Alpha-1-Antitrypsin 174 mg/dL (101-187)
[2020-03-04 06:14] LABS: Anti-Centromere B Antibodies <0.2 AI (0.0-0.9); Anti-Cyclic Citrullinated Pept 6 units (0-19); Anti-DNA (DS) Ab Qn 1 IU/mL (0-9)
[2020-03-04 09:58] LABS: Cytoplasmic (C-ANCA) <1:20 titer (Neg:<1:20)
[2020-03-04 10:04] LABS: Perinuclear (P-ANCA) 1:20 titer (Neg:<1:20)
[2020-03-09 10:33] LABS: Antinuclear Antibodies, IFA Negative (.)
[2020-03-09 12:15] LABS: Antinuclear Antibodies (ANA) Negative
== END ==
PROVIDERS: Visit Provider Internal Medicine Pulmonary Disease
DX: E78.2 Mixed hyperlipidemia (principal); I10 Essential (primary) hypertension; I25.10 Atherosclerotic heart disease of native coronary artery without angina pectoris; I27.20 Pulmonary hypertension, unspecified; R06.02 Shortness of breath; R53.83 Other fatigue; J44.9 Chronic obstructive pulmonary disease, unspecified; J84.9 Interstitial pulmonary disease, unspecified; J98.4 Other disorders of lung; R06.00 Dyspnea, unspecified; Z87.891 Personal history of nicotine dependence
CPT/HCPCS: 36415; 82103; 84550; 85025; 85378; 85651; 86038; 86140; 86200; 86225; 86235; 86256; 86431

== ENCOUNTER → 2020-03-24 12:56 | Outpatient (CLI) | payer MEDICARE, OTHER, SELFPAY ==
--- NOTE | 2020-03-24 12:56 | NM_ITS ---
PROCEDURE: NM PUL VENT AND PERFUSE CLINICAL INDICATION: Dyspnea with elevated D-Dimer COMPARISON: CR XR CHEST 2V from 03/24/2020 TECHNIQUE: Dose 35.9 mCi technetium DTPA inhaled 8.22 mCi technetium MAA IV FINDINGS: No mismatch defects are evident. Matching defects are present in the apical aspect of both upper lobes. No other significant anomalies are evident. IMPRESSION: Low probability for pulmonary embolus. Dictated by: Hair Zuñiga MD 03/25/2020 09:19 Hair Zuñiga MD in [place] 03/25/2020 09:19
--- NOTE | 2020-03-24 14:03 | XR_ITS ---
PROCEDURE: XR CHEST 2V CLINICAL HISTORY: chest xray Shortness of breath COMPARISON: DX CXR2V XR chest 2V from 06/05/[address] chest wo con from 06/26/2018 NM NM PUL VENT AND PERFUSE from 03/24/2020 FINDINGS: Normal heart size. Coronary artery stents are present. COPD changes. There is biapical fibrosis with nodularity noted in the right apex which does not appear significantly changed radiographically. The remaining lungs are clear. There is mild wedging involving T12 not significantly changed. No acute bony abnormalities. IMPRESSION: COPD. No change with no acute finding. Dictated by: Hair Zuñiga MD 03/24/2020 16:03 Hair Zuñiga MD in [facility] 03/24/2020 16:03
== END ==
PROVIDERS: PCP Emergency Medicine; Visit Provider Internal Medicine Pulmonary Disease
DX: R06.00 Dyspnea, unspecified (principal); R79.89 Other specified abnormal findings of blood chemistry; J98.4 Other disorders of lung
CPT/HCPCS: 71046; 78582; A9540; A9567

== ENCOUNTER → 2020-04-05 12:55 | Outpatient (CLI) | payer MEDICARE, OTHER, SELFPAY ==
--- NOTE | 2020-04-05 12:55 | CT_ITS ---
PROCEDURE: CT CHEST WO CON CLINICAL INDICATION: ILD Shortness of air x3 years, interstitial lung disease, no complaints of chest pain or cough, supine inspiration expiration scans and prone inspiration COMPARISON: CT CHESTWO CT chest wo con from 06/26/2018 TECHNIQUE: Axial images obtained with sagittal and coronal reformats. All CT scans at the facility use one or more dose reduction, viz: automated exposure control, ma/kV adjustment per patient size (including targeted exams where dose is matched to indication, i.e. head), or iterative reconstruction technique. Supine inspiration expiration scans and prone inspiration scan were performed FINDINGS: There is biapical parenchymal scarring with scattered calcifications. There is scattered parenchymal loss. There are small focal areas of developing honeycombing in the right greater than left lung base which persist on prone imaging. These are slightly more prominent on current study than on prior study. There is no ground-glass component. There is a rim of subpleural fibrotic change on prone imaging posteriorly. Is a stable 3 millimeter left lower lobe nodule visible axial series 2, image 30. Biapical blebs and parenchymal loss is similar to the prior study. Expiratory images demonstrate air trapping most prominent in the base of the right upper lobe and the right middle lobe. There is minimal flattening of the large airways on expiration. Partial visualization of the thyroid gland is unremarkable. There is dense calcification at the bifurcation of the brachiocephalic artery which narrows the origin of the left subclavian artery. Correlate clinically to determine if clinically significant. There are extensive severe atherosclerotic calcifications throughout the coronary arteries versus coronary stents which can have a similar appearance on CT study. There is no suspicious thoracic adenopathy. There is bilateral renal cortical thinning. There is a small hiatal hernia. There are scattered atherosclerotic calcifications in the vasculature including at the right greater than left renal artery origins. Further workup for renal artery stenosis could be performed if indicated clinically. Partial visualization of the upper abdomen is otherwise unremarkable. There is an old T12 compression fracture with moderate loss of height unchanged. There is scattered degenerative findings in the skeleton. IMPRESSION: 1. Extensive coronary atherosclerosis versus stents. 2. Dense calcifications causing narrowing at the origin of the right subclavian artery, correlate clinically to determine if clinically significant in this patient. 3. Findings consistent with emphysematous change with areas of developing fibrosis and air trapping as described above. 4. Other minor and unrelated findings as described above. Dictated by: Terri Padron 04/05/2020 14:23 Terri Padron in [place] 04/05/2020 14:23
== END ==
PROVIDERS: PCP Emergency Medicine; Visit Provider Internal Medicine Pulmonary Disease
DX: R91.8 Other nonspecific abnormal finding of lung field (principal)
CPT/HCPCS: 71250

== ENCOUNTER → 2020-04-18 13:12 | Outpatient (CLI) | payer MEDICARE, OTHER, SELFPAY ==
[2020-04-18 13:17] LABS: Microscopic, Urine URINE MICROSCOPIC (MICROSCOPIC)
[2020-04-18 13:38] LABS: Basophils # 0.1 K/mm3 (0-0.2); Basophils % 0.8 % (0.1-2.0); Eosinophils # 0.5 K/mm3 (0.0-0.4); Eosinophils % 6.7 % (0.1-12.0); Hematocrit 44.3 % (42.0-52.0); Hemoglobin 14.4 g/dL (14.1-18.0); Lymphocytes # 1.5 K/mm3 (0.7-4.5); Lymphocytes % 19.9 % (10-50); Mean Corpuscular HGB Conc 32.5 g/dL (31.8-35.4); Mean Corpuscular Hemoglobin 30.1 pg (27.0-31.2); Mean Corpuscular Volume 92.7 fl (80-94); Mean Platelet Volume 8.2 fl (7.4-10.4); Monocytes # 0.4 K/mm3 (0.1-1.0); Monocytes % 5.6 % (1.7-9.3); Neutrophils # 4.9 K/mm3 (1.8-7.8); Platelet Count 247 K/mm3 (142-424); Red Blood Count 4.77 M/mm3 (4.60-6.20); Red Cell Distribution Width 13.8 % (11.5-17.5); White Blood Count 7.3 K/mm3 (4.8-10.8)
[2020-04-18 14:12] LABS: Albumin Level 4.1 g/dl (3.5-5.0); Anion Gap 12.5 mEq/L (5-15); Blood Urea Nitrogen 20 mg/dl (9-20); Calcium 9.5 mg/dl (8.4-10.2); Carbon Dioxide 23 mmol/L (22.0-30.0); Chloride 107 mmol/L (98-107); Estimated Glomerular Filt Rate 39 ml/min (>60); GFR (African American) 48 ML/MIN (>60); Glucose 109 mg/dl (74-100); Phosphorous 3.6 mg/dl (2.5-4.5); Potassium 4.5 mmoL/L (3.5-5.1); Sodium 138 mmol/L (136-145)
[2020-04-18 14:30] LABS: 25-OH Vitamin D, Total 26.8 ng/mL (30-100)
[2020-04-18 14:45] LABS: Appearance,Urine CLEAR (Clear); Bilirubin,Urine Negative (Negative); Blood, Urine Negative (Negative); Color,Urine YELLOW (Yellow); Glucose,Urine (UA) Negative (Negative); Ketones,Urine Negative (Negative); Leukocyte Esterase,Urine Negative (Negative); Nitrate,Urine Negative (Negative); Protein,Urine Negative (Negative)
[2020-04-18 18:21] LABS: WBC,Urine Occasional #/hpf (0-3)
[2020-04-18 18:22] LABS: Squamous Epithelial Cell,Urine Occasional #/hpf (0-5)
[2020-04-20 14:58] LABS: Calcium, Ionized 5.1 mg/dL (4.5-5.6)
== END ==
PROVIDERS: Visit Provider Internal Medicine Nephrology
DX: N18.30 Chronic kidney disease, stage 3 unspecified (principal); E55.9 Vitamin D deficiency, unspecified
CPT/HCPCS: 36415; 80069; 81001; 82306; 82330; 83970; 85025

== ENCOUNTER → 2020-04-25 15:35 | Outpatient (POV) | payer MEDICARE, OTHER, SELFPAY | PROVIDERS: Visit Provider Internal Medicine Nephrology | DX: Z00.00 Encounter for general adult medical examination without abnormal findings (principal) ==

== ENCOUNTER → 2020-06-28 12:53 | Outpatient (CLI) | payer MEDICARE, OTHER, SELFPAY | PROVIDERS: PCP Emergency Medicine; Visit Provider Internal Medicine Pulmonary Disease | DX: R06.02 Shortness of breath (principal) | CPT/HCPCS: 94060; 94726; 94729 ==

== ENCOUNTER → 2020-07-04 13:42 | Outpatient (CLI) | payer MEDICARE, OTHER, SELFPAY ==
[2020-07-04 14:32] LABS: Anion Gap 12.6 mEq/L (5-15); Blood Urea Nitrogen 21 mg/dl (9-20); Calcium 9.6 mg/dl (8.4-10.2); Carbon Dioxide 23 mmol/L (22.0-30.0); Chloride 109 mmol/L (98-107); Estimated Glomerular Filt Rate 37 ml/min (>60); GFR (African American) 44 ML/MIN (>60); Glucose 62 mg/dl (74-100); Potassium 4.6 mmoL/L (3.5-5.1); Sodium 140 mmol/L (136-145)
== END ==
PROVIDERS: Visit Provider Nurse Practitioner Family
DX: I51.89 Other ill-defined heart diseases (principal)
CPT/HCPCS: 36415; 80048

== ENCOUNTER 2020-10-10 15:00 | Outpatient (RCR) | payer MEDICARE, OTHER, SELFPAY ==
--- NOTE | 2020-07-25 15:20 | HMH.PTOPEV ---
PT Outpatient Evaluation Rehab PT Outpatient Evaluation Start: 07/25/20 14:41 Freq: Status: Active Protocol: Document 07/25/20 14:57 [place] (Rec: 07/25/20 15:20 [place] [id number]) Electronically Signed By Quincy Colvin, PT 07/25/20 14:57 Outpatient Therapy Subjective History Subjective History Pt presents w/chronic B LE weakness and neuropathy. Pt reports L>R LE weakness, poor balance, and episodes of SOB. Pt reports no falls, however, 'a lot of close calls, and I just feel like I'm getting weaker all the time'. PMH: cervical myelopathy, bradycardia Chief Complaint Weakness Symptom Type Numbness,Tingling Symptoms Relieved By OTC Meds,Prescription Meds Symptoms Aggravated By Standing,Walking,Lifting Prior Functional Limitations Housework,Standing,Walking, Stairs Current Functional Limitations Housework,Standing,Squatting, Walking,Stairs Hip/Knee Eval Gait Observation General Gait Pattern Observation Ataxic Gait,Shuffling Step Assistive Device Assistive Devices None / NA MMT left Hip Flexion Strength Grade 4- Good- Hip Abduction Strength Grade 3+ Fair+ Hip Adduction Strength Grade 3+ Fair+ Hip Extension Strength Grade 3+ Fair+ Knee Extension Strength Grade 4 Good Knee Flexion Strength Grade 4- Good- right Hip Flexion Strength Grade 4 Good Hip Abduction Strength Grade 4- Good- Hip Adduction Strength Grade 4 Good Hip Extension Strength Grade 4- Good- Knee Extension Strength Grade 4 Good Knee Flexion Strength Grade 4 Good Ankle/Foot Eval MMT bilateral Ankle Dorsiflexion Strength Grade 4- Good- Ankle Plantarflexion Strength Grade 3- Fair- Balance Eval Timed Up and Go Test 3. Is the Timed Up and Go Test result < yes 12 seconds? Tinetti Sitting Balance Sitting Balance Steady, safe Arising from Chair Ability to Arise Able, uses arms to help Attempts to Arise Arises on 1st attempt Standing Balance Immediate Standing Balance Steady with support Standing Balance Unsteady Nudged Response Begins to fall Standing with Eyes Closed Unsteady Turning Step Pattern Turning 360 Degrees Discontinuous steps Stability Turning 360 Degrees Unsteady, grabs/staggers Sitting Down Sitting Down Uses arms or unsteady Gait and Step Initiation of Gait Hesitancy, mult. attempts Right Foot Step Rahul
--- NOTE | 2020-08-22 15:31 | HMH.RHREAS ---
Rehab Reassessment Rehab OP Re-assessment Start: 08/22/20 14:52 Freq: Status: Active Protocol: Document 08/22/20 14:53 [place] (Rec: 08/22/20 15:25 [place] [id number]) Electronically Signed By Quincy Colvin, PT 08/22/20 14:53 Rehab Re-assessment Subjective Subjective Pt reports 'feel stronger since we started this time. Seems like my endurance and my walking is already better'. Objective Objective Notes TINETTI:10 MMT: B HIP FLX 4/5, B KNEE FLX AND EXT 4+/5, B HIP ABD,ADD, EXT 4--4/5, B DF 3+/5 TUSEC Assessment Progress Assessment Progressing as Expected Assessment Notes IMPROVED GAIT, TINETTI SCORE, STRENGTH, AND TUG TIME Patient goals met STG'S 06/24 Goals Not Met STG'S 03/27, LTG'S 08/24 Plan Plan Pt to cont. w/skilled P.T. to make further improvements in strength, balance, and overall endurance to allow for optimal function Frequency of Therapy 2-3x/wk Duration of therapy 3-4wks Time and Billing Re-Eval Time 15 Re-Eval Billing Units 0 PHYSICIAN CERTIFICATION: I certify the specified therapy services for Kalia Magdaleno are required, authorized, and reviewed every 30 days.
== END 2020-10-10 15:05 | disposition home or self-care (01) ==
LOC: PT 15:00
PROVIDERS: PCP Emergency Medicine; Visit Provider Specialist
DX: G95.9 Disease of spinal cord, unspecified (principal); R26.9 Unspecified abnormalities of gait and mobility
CPT/HCPCS: 97014; 97110; 97112; 97163; 97164; 97530; G0283

== ENCOUNTER 2020-11-27 12:53 | Emergency (ER) | payer MEDICARE, OTHER, SELFPAY ==
[2020-11-27 13:40] VITALS: BP 108/58; PULSE 78; RESP 16; TEMP 36.6; O2SAT 95; BMI 21.7
--- NOTE | 2020-11-27 13:55 | HMH.EDUTC ---
[facility] [place] Clinical Impression: Sinusitis Qualifiers: Sinusitis location: unspecified location Chronicity: acute Recurrence: non-recurrent Qualified Code(s): J01.90 - Acute sinusitis, unspecified Disposition: Home, Self-Care Condition on Discharge: Good Instructions: DI for Sinusitis Additional Instructions: Drink plenty of fluids. Take tylenol or ibuprofen for pain or fever. Take the medications as directed. Follow up with your regular doctor. GO TO THE ER FOR ANY WORSENING SYMPTOMS Don't start the oral steroids until tomorrow, since you had the shot here today. Prescriptions: guaiFENesin [Mucinex 600mg tablet] 1 - 2 tab PO BIDP PRN #30 tab PRN Reason: Congestion Transmission Status: Received by [facility] predniSONE [Prednisone 20mg Tab] 20 mg PO BID 4 Days #8 tab Transmission Status: Received by [facility] Azithromycin [Z-Dong 250mg Tab*] 250 mg PO UD DOSE PK #6 tab Transmission Status: Received by [facility] Referrals: Tomy Witt MD [Primary Care Provider] - Time of Disposition: 14:00 Medical Decision Making - Medical Records Medical records reviewed: No: I reviewed the patient's medical records. - Demond Inquiry Pt receiving controlled substance: No Vital Signs: 11/27/20 13:40 11/27/20 14:06 Temperature 97.9 F 97.7 F Temperature Source Oral Pulse Rate 78 Pulse Rate [Left] 78 Respiratory Rate 16 20 Blood Pressure 108/58 L Blood Pressure [Right Arm] 108/58 L Blood Pressure Mean [Right Arm] 74 02 Sat by Pulse Oximetry 95 Orders (Tests/Meds): ED MEDICATIONS Discontinued Medications Generic Name Dose Route Start Last Admin Trade Name Freq PRN Reason Stop Dose Admin Ceftriaxone Sodium 1 gm 11/27/20 13:54 11/27/20 14:06 Ceftriaxone 1gm Vial IM 11/27/20 13:55 1 gm ONCE ONE Administration Lidocaine HCl 0 ml 11/27/20 13:54 11/27/20 14:05 Lidocaine 1% 5ml Pf Vial IM 11/27/20 13:55 2.5 ml ONCE ONE Administration Methylprednisolone Sodium Succinate 125 mg 11/27/20 13:54 11/27/20 14:05 Methylprednisolone Sod Succ 125mg Vial IM 11/27/20 13:55 125 mg ONCE ONE Administration [facility] [place] H[place] - General Stated complaint: head cold Time Seen by Provider: 11/27/20 13:55 Mode of Arrival: Ambulatory Source of Information: Patient Limitations: No Limitations Description of Symptoms (Recalled from Triage Doc. by RN): pt c/o GABRIEL, runny nose and cough HEENT Symptoms (Recalled from RN notes): Yes (GABRIEL and runny nose) Resp Symptoms (Recalled from RN notes): Yes (cough) Skin Symptoms (Recalled from RN notes): No MS Symptoms (Recalled from RN notes): No Functional Status (Recalled from RN notes): na - History of Present Illness Provider Complaint: He states that for the past 2 days he has had a worsening head cold and sinus pressure. He is starting to cough now. He denies any fever or chills. He has been fully vaccinated against covid-19 - Related Data Home Medications Medication Instructions Recorded Confirmed aspirin 81 mg tablet,delayed 81 mg PO QDAY 03/19/17 10/11/20 release brinzolamide 1 % eye 1 drp OPHTHALMIC ONCE ml 03/19/17 10/11/20 drops,suspension sacubitril 24 mg-valsartan 26 mg 1 tab PO ONCE tab 07/14/20 10/11/20 tablet Previous Rx's Medication Instructions Recorded albuterol sulfate 90 mcg/actuation 2 puff INHALATION Q4-6H PRN #18 g 06/26/19 aerosol inhaler atorvastatin 40 mg tablet 40 mg PO QDAY #90 tab 12/28/19 budesonide-formoterol HFA 160 2 puff INHALATION BID #10.2 g 04/14/20 mcg-4.5 mcg/actuation aerosol inhaler ipratropium 0.5 mg-albuterol 3 mg 3 ml INHALATION Q6H PRN #180 ml 04/15/20 (2.5 mg base)/3 mL nebulization soln spironolactone 25 mg tablet See Rx Instructions .ROUTE 08/02/20 .COMPLEX #90 tab paroxetine HCl 40 mg tablet See Rx Instructions .ROUTE 09/14/20 .COMPLEX #45 tablet Azithromycin [Z-Dong 250mg Tab*] 250 mg PO UD DOSE PK #6
[2020-11-27 14:06] VITALS: BP 108/58; PULSE 78; RESP 20; TEMP 36.5
== END 2020-11-27 14:16 | disposition home or self-care (01) ==
PROVIDERS: Emergency Provider Nurse Practitioner Family; PCP Emergency Medicine
DX: J01.90 Acute sinusitis, unspecified (principal); U07.1 COVID-19; J44.9 Chronic obstructive pulmonary disease, unspecified; I25.10 Atherosclerotic heart disease of native coronary artery without angina pectoris; F41.8 Other specified anxiety disorders; E78.5 Hyperlipidemia, unspecified; Z87.891 Personal history of nicotine dependence; Z79.899 Other long term (current) drug therapy
CPT/HCPCS: G0463; 96372; 99202; C9803; U0003; U0005

== ENCOUNTER → 2021-01-10 17:49 | Outpatient (CLI) | payer MEDICARE, OTHER, SELFPAY ==
[2021-01-10 19:12] LABS: Basophils # 0.1 K/mm3 (0-0.2); Basophils % 0.6 % (0.1-2.0); Eosinophils # 0.3 K/mm3 (0.0-0.4); Eosinophils % 2.6 % (0.1-12.0); Hematocrit 46.5 % (42.0-52.0); Lymphocytes % 10.5 % (10-50); Mean Corpuscular HGB Conc 32.3 g/dL (31.8-35.4); Mean Corpuscular Hemoglobin 30.9 pg (27.0-31.2); Mean Corpuscular Volume 95.7 fl (80-94); Mean Platelet Volume 9.3 fl (7.4-10.4); Monocytes # 0.4 K/mm3 (0.1-1.0); Monocytes % 3.7 % (1.7-9.3); Neutrophils # 7.8 K/mm3 (1.8-7.8); Neutrophils % 82.7 % (37.0-80.0); Platelet Count 311 K/mm3 (142-424); Red Blood Count 4.85 M/mm3 (4.60-6.20); White Blood Count 9.4 K/mm3 (4.8-10.8)
[2021-01-10 19:18] LABS: Alanine Aminotransferase 27 U/L (12-78); Albumin/Globulin Ratio 1.4 (1.1-1.8); Alkaline Phosphatase 95 U/L (38-126); Anion Gap 12.8 mEq/L (5-15); Aspartate Amino Transferase 40 U/L (17-59); Bilirubin,Total 0.6 mg/dl (0.2-1.3); Blood Urea Nitrogen 19 mg/dl (9-20); Calcium 9.4 mg/dl (8.4-10.2); Carbon Dioxide 27 mmol/L (22.0-30.0); Chloride 103 mmol/L (98-107); Chol/HDL Ratio 3.1 (1-3.5); Cholesterol 129 mg/dl (140-200); Estimated Glomerular Filt Rate 42 ml/min (>60); GFR (African American) 51 ML/MIN (>60); Globulin 2.9 g/dL (1.3-3.2); Glucose 107 mg/dl (74-100); HDL Cholesterol 42 mg/dl (40-60); Potassium 4.8 mmoL/L (3.5-5.1); Sodium 138 mmol/L (136-145); Total Protein,Serum 6.9 g/dl (6.3-8.2); Triglycerides 75 mg/dl (30-150); VLDL Cholesterol 15 mg/dL (0-40)
[2021-01-10 19:33] LABS: Free T4 (Free Thyroxine) 1.08 ng/dl (0.78-2.19)
[2021-01-10 20:22] LABS: Thyroid Stimulating Hormone 5.47 uIU/mL (0.465-4.68)
== END ==
PROVIDERS: Visit Provider Emergency Medicine
DX: E07.9 Disorder of thyroid, unspecified (principal); E78.5 Hyperlipidemia, unspecified; F32.A Depression, unspecified; Z95.5 Presence of coronary angioplasty implant and graft
CPT/HCPCS: 80053; 80061; 84439; 84443; 85025

== ENCOUNTER → 2021-03-29 13:16 | Outpatient (CLI) | payer MEDICARE, OTHER, SELFPAY ==
--- NOTE | 2021-03-29 13:16 | MR_ITS ---
FINAL REPORT CLINICAL HISTORY: back pain, follow-up from previous mri to see if any changes, prior 02-06-19 COMPARISON: 02/06/2019 FINDINGS: Multiplanar MR imaging of the lumbar spine was performed without contrast. On the sagittal T2-weighted images, disc degeneration is seen throughout with endplate changes at multiple levels. There is moderate chronic T12 compression fracture, stable. The vertebral alignment is normal. No acute fracture is identified. The conus has an unremarkable appearance. L1-2: An annular bulge is present. Facet arthropathy and osteophytes are present. There is mild right and moderate left neural foraminal narrowing. L2-3: An annular bulge is present. Facet arthropathy and osteophytes are present. There is a left foraminal disc protrusion with mild right and moderate left neural foraminal narrowing. L3-4: An annular bulge is present. Facet arthropathy and osteophytes are present. There is moderate bilateral neural foraminal narrowing. L4-5: An annular bulge is present. Facet arthropathy and osteophytes are present. There is moderate bilateral neural foraminal narrowing. L5-S1: An annular bulge and facet arthropathy are present. There is a central disc protrusion with moderate right and severe left neural foraminal narrowing. IMPRESSION: Multilevel degenerative disc disease and spondylosis. Findings are similar to prior. Disc protrusions at L2-3 and L5-S1. Reviewed, Interpreted and Dictated by John Valdez III, MD Transcribed by Sophia Gould Authenticated by John Valdez III, MD on 03/29/2021 03:23:50 PM [facility]
== END ==
PROVIDERS: PCP Emergency Medicine; Visit Provider Emergency Medicine
DX: M54.9 Dorsalgia, unspecified (principal); M54.50 Low back pain, unspecified
CPT/HCPCS: 72148; 76376

== ENCOUNTER → 2021-04-07 14:43 | Outpatient (CLI) | payer MEDICARE, OTHER, SELFPAY ==
[2021-04-07 16:25] LABS: Chloride 107 mmol/L (98-107); Potassium 5.1 mmoL/L (3.5-5.1); Sodium 135 mmol/L (136-145)
[2021-04-07 16:28] LABS: Anion Gap 9.1 mEq/L (5-15); Blood Urea Nitrogen 25 mg/dl (9-20); Carbon Dioxide 24 mmol/L (22.0-30.0); Estimated Glomerular Filt Rate 34 ml/min (>60); GFR (African American) 42 ML/MIN (>60)
[2021-04-07 16:29] LABS: Calcium 8.4 mg/dl (8.4-10.2); Glucose 99 mg/dl (74-100)
== END ==
PROVIDERS: Visit Provider Nurse Practitioner Family
DX: I50.30 Unspecified diastolic (congestive) heart failure (principal); I25.10 Atherosclerotic heart disease of native coronary artery without angina pectoris
CPT/HCPCS: 36415; 80048

== ENCOUNTER → 2021-04-10 07:52 | Outpatient (CLI) | payer MEDICARE, OTHER, SELFPAY ==
[2021-04-10 08:30] VITALS: PULSE 92; PULSE 98
== END ==
PROVIDERS: PCP Emergency Medicine; Visit Provider Internal Medicine Pulmonary Disease
DX: R06.00 Dyspnea, unspecified (principal)
CPT/HCPCS: 94060; 94640; 94727; 94729

== ENCOUNTER → 2021-04-24 15:15 | Outpatient (CLI) | payer MEDICARE, OTHER, SELFPAY | PROVIDERS: PCP Internal Medicine Pulmonary Disease; Visit Provider Emergency Medicine | DX: R06.09 Other forms of dyspnea (principal) | CPT/HCPCS: 94762 ==

== ENCOUNTER → 2021-05-10 17:00 | Outpatient (CLI) | payer MEDICARE, OTHER, SELFPAY ==
[2021-05-10 20:26] LABS: Basophils # 0.1 K/mm3 (0-0.2); Basophils % 0.7 % (0.1-2.0); Eosinophils # 0.6 K/mm3 (0.0-0.4); Eosinophils % 7.5 % (0.1-12.0); Hematocrit 41.2 % (42.0-52.0); Hemoglobin 13.5 g/dL (14.1-18.0); Lymphocytes # 1.5 K/mm3 (0.7-4.5); Lymphocytes % 19.1 % (10-50); Mean Corpuscular HGB Conc 32.8 g/dL (31.8-35.4); Mean Corpuscular Hemoglobin 32.6 pg (27.0-31.2); Mean Corpuscular Volume 99.5 fl (80-94); Mean Platelet Volume 9.8 fl (7.4-10.4); Monocytes # 0.5 K/mm3 (0.1-1.0); Monocytes % 6.2 % (1.7-9.3); Neutrophils # 5.2 K/mm3 (1.8-7.8); Neutrophils % 66.6 % (37.0-80.0); Platelet Count 213 K/mm3 (142-424); Red Blood Count 4.15 M/mm3 (4.60-6.20); Red Cell Distribution Width 13.8 % (11.5-17.5); White Blood Count 7.8 K/mm3 (4.8-10.8)
[2021-05-10 20:43] LABS: Alanine Aminotransferase 25 U/L (12-78); Albumin Level 3.6 g/dl (3.5-5.0); Albumin/Globulin Ratio 1.3 (1.1-1.8); Alkaline Phosphatase 87 U/L (38-126); Anion Gap 12.2 mEq/L (5-15); Aspartate Amino Transferase 29 U/L (17-59); Bilirubin,Total 0.6 mg/dl (0.2-1.3); Blood Urea Nitrogen 31 mg/dl (9-20); Calcium 8.5 mg/dl (8.4-10.2); Carbon Dioxide 25 mmol/L (22.0-30.0); Chloride 108 mmol/L (98-107); Estimated Glomerular Filt Rate 39 ml/min (>60); GFR (African American) 47 ML/MIN (>60); Globulin 2.8 g/dL (1.3-3.2); Glucose 94 mg/dl (74-100); Potassium 5.2 mmoL/L (3.5-5.1); Sodium 140 mmol/L (136-145); Total Protein,Serum 6.4 g/dl (6.3-8.2)
== END ==
PROVIDERS: Visit Provider Emergency Medicine
DX: N28.9 Disorder of kidney and ureter, unspecified (principal); G62.9 Polyneuropathy, unspecified
CPT/HCPCS: 80053; 85025

== ENCOUNTER 2021-05-17 15:36 | Emergency (ER) | payer MEDICARE, OTHER, SELFPAY ==
[2021-05-17 15:36] VITALS: BP 106/40; PULSE 66; RESP 16; TEMP 36.8; O2SAT 94; BMI 23.0
[2021-05-17 15:48] VITALS: BMI 23.0
--- NOTE | 2021-05-17 15:48 | PC.NURSE ---
Notified rad of Stroke Protocol
--- NOTE | 2021-05-17 15:48 | PC.NURSE ---
notified rad of CT head stroke protocol
--- NOTE | 2021-05-17 15:49 | CT_ITS ---
FINAL REPORT CLINICAL HISTORY: stroke protocol COMPARISON: 11/05/2019 FINDINGS: Axial images of the head were obtained without contrast. Coronal reformatted images were also obtained. This study was performed with techniques to keep radiation doses as low as reasonably achievable (ALARA). Individualized dose reduction techniques using automated exposure control or adjustment of mA and/or kV according to the patient's size were employed. There is generalized age-appropriate atrophy. Periventricular low-attenuation areas are seen consistent with mild chronic ischemic changes. There is no evidence of intracranial hemorrhage or mass. There is no evidence of acute infarct. There is no evidence of shift of the midline structures. No skull abnormality is seen on the bone window images. IMPRESSION: Atrophy and mild periventricular chronic ischemic changes. No acute intracranial abnormality identified. Reviewed, Interpreted and Dictated by John Valdez III, MD Transcribed by Sophia Gould Authenticated by John Valdez III, MD on 05/17/2021 04:09:[address] [facility]
--- NOTE | 2021-05-17 15:53 | PC.NURSE ---
pt to CT
--- NOTE | 2021-05-17 15:53 | PC.NURSE ---
pt to rad
--- NOTE | 2021-05-17 16:05 | PC.NURSE ---
Pt returned from rad
[2021-05-17 16:31] LABS: Basophils # 0.1 K/mm3 (0-0.2); Basophils % 0.7 % (0.1-2.0); Eosinophils # 0.5 K/mm3 (0.0-0.4); Eosinophils % 6.6 % (0.1-12.0); Hematocrit 44.3 % (42.0-52.0); Hemoglobin 14.6 g/dL (14.1-18.0); Lymphocytes # 1.5 K/mm3 (0.7-4.5); Lymphocytes % 18.8 % (10-50); Mean Corpuscular HGB Conc 32.8 g/dL (31.8-35.4); Mean Corpuscular Hemoglobin 31.8 pg (27.0-31.2); Mean Corpuscular Volume 96.7 fl (80-94); Mean Platelet Volume 8.7 fl (7.4-10.4); Monocytes # 0.4 K/mm3 (0.1-1.0); Monocytes % 4.3 % (1.7-9.3); Neutrophils # 5.7 K/mm3 (1.8-7.8); Neutrophils % 69.6 % (37.0-80.0); Platelet Count 244 K/mm3 (142-424); Red Blood Count 4.58 M/mm3 (4.60-6.20); Red Cell Distribution Width 13.7 % (11.5-17.5); White Blood Count 8.2 K/mm3 (4.8-10.8)
[2021-05-17 16:36] LABS: Alanine Aminotransferase 30 U/L (12-78); Albumin Level 4.2 g/dl (3.5-5.0); Alkaline Phosphatase 95 U/L (38-126); Anion Gap 10.9 mEq/L (5-15); Aspartate Amino Transferase 36 U/L (17-59); Bilirubin,Direct 0.1 mg/dl (0.0-0.4); Bilirubin,Indirect 0.5 mg/dL (0.0-0.9); Bilirubin,Total 0.6 mg/dl (0.2-1.3); Bilirubin,Unconjugated 0.5 mg/dL (0.0-1.1); Blood Urea Nitrogen 20 mg/dl (9-20); Calcium 8.8 mg/dl (8.4-10.2); Carbon Dioxide 27 mmol/L (22.0-30.0); Chloride 106 mmol/L (98-107); Creatinine Clearance Estimated 42 mL/min (50-200); Estimated Glomerular Filt Rate 42 ml/min (>60); GFR (African American) 51 ML/MIN (>60); Glucose 108 mg/dl (74-100); Potassium 4.9 mmoL/L (3.5-5.1); Sodium 139 mmol/L (136-145); Total Protein,Serum 7.3 g/dl (6.3-8.2)
[2021-05-17 16:37] LABS: Prothrombin Time 11.3 seconds (10.1-12.5)
[2021-05-17 17:01] VITALS: BP 99/60; PULSE 55; RESP 18; O2SAT 95
[2021-05-17 17:31] VITALS: BP 115/55; PULSE 51; RESP 16; O2SAT 97
[2021-05-17 18:00] VITALS: BP 126/60; PULSE 60; RESP 16; O2SAT 99
--- NOTE | 2021-05-17 19:24 | HMH.EDGENADL ---
ED Disposition Clinical Impression: TIA (transient ischemic attack) Disposition: Home, Self-Care Condition on Discharge: Good Instructions: DI for Transient Ischemic Attack Additional Instructions: Begin taking a full 325 mg aspirin daily, beginning tomorrow Dr. Witt will contact Dr. Pratt and then will contact you tomorrow with a follow-up appointment to see Dr. Pratt. Return to the emergency department if the symptoms return. Referrals: Tomy Witt MD [Primary Care Provider] - - Critical Care Critical Care Time: No Attestation: On 05/17/21, the high probability of a clinically significant, sudden or life threatening deterioration of the following system(s) required my full and direct attention, intervention and personal management. The time I documented below is in addition to time spent performing reported procedures but includes the following listed in this critical care notation. Medical Decision Making - Demond Inquiry Pt receiving controlled substance: No Vital Signs: 05/17/21 15:36 05/17/21 17:01 05/17/21 17:31 Temperature 98.3 F Temperature Source Oral Pulse Rate 55 L 51 L Pulse Rate [Left Radial] 66 Respiratory Rate 16 18 16 Blood Pressure 99/60 L 115/55 L Blood Pressure [Left Arm] 106/40 L Blood Pressure Mean 73 75 Blood Pressure Mean [Left Arm] 62 Blood Pressure Source [Left Arm] Automatic Cuff Blood Pressure Position [Left Arm] Sitting 02 Sat by Pulse Oximetry 94 L 95 97 Oxygen Delivery Method Room Air 05/17/21 18:00 Temperature Temperature Source Pulse Rate 60 Pulse Rate [Left Radial] Respiratory Rate 16 Blood Pressure 126/60 Blood Pressure [Left Arm] Blood Pressure Mean 82 Blood Pressure Mean [Left Arm] Blood Pressure Source [Left Arm] Blood Pressure Position [Left Arm] 02 Sat by Pulse Oximetry 99 Oxygen Delivery Method - Lab Data Lab Results 05/17/21 16:15: WBC 8.2, RBC 4.58 L, Hgb 14.6, Hct 44.3, MCV 96.7 H, MCH 31.8 H, MCHC 32.8, RDW 13.7, Plt Count 244, MPV 8.7, Neut % (Auto) 69.6, Lymph % (Auto) 18.8, [place] % (Auto) 4.3, Eos % (Auto) 6.6, Baso % (Auto) 0.7, Neut # (Auto) 5.7, Lymph # (Auto) 1.5, [place] # (Auto) 0.4, Eos # (Auto) 0.5 H, Baso # (Auto) 0.1 05/17/21 16:15: PT 11.3, INR 1.00 05/17/21 16:15: Sodium 139, Potassium 4.9, Chloride 106, Carbon Dioxide 27, Anion Gap 10.9, BUN 20, Creatinine 1.60 H, Estimated Creat Clear 42, Estimated GFR 42 L, Est GFR ( Amer) 51 L, Glucose 108 H, Calcium 8.8, Total Bilirubin 0.6, Direct Bilirubin 0.1, Conjugated Bilirubin 0.0, Indirect Bilirubin 0.5, Unconjugated Bilirubin 0.5, AST 36, ALT 30, Alkaline Phosphatase 95, Total Protein 7.3, Albumin 4.2 Result diagrams: 05/17/21 16:15 05/17/21 16:15 Orders (Tests/Meds): ED MEDICATIONS Generic Name Dose Route Start Last Admin Trade Name Freq PRN Reason Stop Dose Admin Sodium Chloride 10 ml 05/17/21 15:50 Sodium Chloride 0.9% 10ml Flush Syringe IV 06/16/21 15:49 NEEDED PRN Maintain IV Site Discontinued Medications Generic Name Dose Route Start Last Admin Trade Name Freq PRN Reason Stop Dose Admin Iopamidol 100 ml 05/17/21 20:06 05/17/21 20:07 Iopamidol-370 (76%);100ml Bottle IV 05/17/21 20:07 100 ml ONCE ONE Administration Sodium Chloride 1,000 ml 05/17/21 19:38 05/17/21 19:49 Sodium Chloride 0.9% 1000ml Bag IV 05/17/21 19:39 1,000 ml BOLUS ONE Administration Sodium Chloride 50 ml 05/17/21 20:06 05/17/21 20:07 0.9 % Sodium Chloride 50 Ml Vial IV 05/17/21 20:07 50 ml ONCE ONE Administration Sodium Chloride 10 ml 05/17/21 20:06 05/17/21 20:07 Sodium Chloride 0.9% 10ml Syr (Rad Only) IV 05/17/21 20:07 10 ml ONCE ONE Administration ORDERS Category Date Time Status Trop I [Troponin I] Stat Lab 05/17/21 19:40 Ordered Troponin I Q3H Lab 05/17/21 22:45 Ordered Troponin I Q3H Lab 05/18/21 01:45 Ordered - CT Data CT Scan: Head Time Received: 19:[address]
--- NOTE | 2021-05-17 19:37 | CT_ITS ---
PROCEDURE INFORMATION: Exam: CT Angiography Head With Contrast, Arteriography Exam date and time: 05/17/2021 8:00 PM Age: 80 years old Clinical indication: Abnormal findings; Abnormal CT of the head; Additional info: Possible TIA TECHNIQUE: Imaging protocol: Computed tomography angiography of the head with contrast. Exam focused on the arteries. 3D rendering (Not supervised by radiologist): MIP and/or 3D reconstructed images were created by the technologist. Radiation optimization: All CT scans at this facility use at least one of these dose optimization techniques: automated exposure control; mA and/or kV adjustment per patient size (includes targeted exams where dose is matched to clinical indication); or iterative reconstruction. Contrast material: ISOVUE; Contrast volume: 100 ml; Contrast route: INTRAVENOUS (IV); COMPARISON: CT HEAD/BRAIN WO CON 05/17/2021 3:54 PM FINDINGS: ANTERIOR CIRCULATION: Right internal carotid artery: Unremarkable. Intracranial segment is patent with no significant stenosis. No aneurysm. Right middle cerebral artery: Unremarkable. No occlusion or significant stenosis. No aneurysm. Right anterior cerebral artery: Unremarkable. No occlusion or significant stenosis. No aneurysm. Left internal carotid artery: Unremarkable. Intracranial segment is patent with no significant stenosis. No aneurysm. Left middle cerebral artery: Unremarkable. No occlusion or significant stenosis. No aneurysm. Left anterior cerebral artery: Unremarkable. No occlusion or significant stenosis. No aneurysm. POSTERIOR CIRCULATION: Right vertebral artery: Unremarkable. No occlusion or significant stenosis. No aneurysm. Left vertebral artery: Unremarkable. No occlusion or significant stenosis. No aneurysm. Basilar artery: Unremarkable. No occlusion or significant stenosis. No aneurysm. Right posterior cerebral artery: Unremarkable. No occlusion or significant stenosis. No aneurysm. Left posterior cerebral artery: Unremarkable. No occlusion or significant stenosis. No aneurysm. Brain: No definite mass, mass effect, or midline shift. Cerebral ventricles: No ventriculomegaly. Bones/joints: Unremarkable. No acute fracture. Soft tissues: Biapical fibronodular thickening in the lungs. Consider PET-CT. IMPRESSION: 1. No large vessel stenosis or occlusion. 2. Biapical fibronodular thickening in the lungs. Consider PET-CT.
--- NOTE | 2021-05-17 19:37 | CT_ITS ---
PROCEDURE INFORMATION: Exam: CT Angiography Neck With Contrast Exam date and time: 05/17/2021 8:00 PM Age: 80 years old Clinical indication: Abnormal findings; Abnormal CT of the head; Additional info: Possible TIA TECHNIQUE: Imaging protocol: Computed tomography angiography of the neck with contrast. 3D rendering (Not supervised by radiologist): MIP and/or 3D reconstructed images were created by the technologist. Radiation optimization: All CT scans at this facility use at least one of these dose optimization techniques: automated exposure control; mA and/or kV adjustment per patient size (includes targeted exams where dose is matched to clinical indication); or iterative reconstruction. Contrast material: ISOVUE; Contrast volume: 100 ml; Contrast route: INTRAVENOUS (IV); COMPARISON: MRANW/O MRA-NECK W/O 04/19/2016 8:22 AM FINDINGS: Right common carotid artery: No stenosis. No dissection or occlusion. Right internal carotid artery: No stenosis of the extracranial segment. No dissection or occlusion. Right external carotid artery: No occlusion or stenosis of the origin. Left common carotid artery: No stenosis. No dissection or occlusion. Left internal carotid artery: Soft plaque at the left ICA origin, no flow limiting stricture detected. Mild stenosis 20% by NASCET criteria. Left external carotid artery: No occlusion or stenosis of the origin. Right vertebral artery: No stenosis. No dissection or occlusion. Left vertebral artery: No stenosis. No dissection or occlusion. Soft tissues: Normal. No significant soft tissue swelling. Bones/joints: Posterior fusion C3 through C6. No acute fracture. IMPRESSION: 1. Soft plaque at the left ICA origin, no flow limiting stricture detected. Mild stenosis 20% by NASCET criteria. 2. Posterior fusion C3 through C6. REFERENCES: NASCET CRITERIA. The degree of internal carotid artery stenosis is based on NASCET criteria. Normal is no stenosis. Mild is less than 50% stenosis. Moderate is 50-69% stenosis. Severe is 70% to 99% stenosis. Total occlusion is no detectable patent lumen.
--- NOTE | 2021-05-17 20:21 | ECG_ITS ---
APPROVED REPORT Exam: Resting ECG HR:69 bpm ECG Measurements Heart Rate 69 AXES NE 185 P 78 QRSd 95 QRS 41 QT 437 T 68 QTc 457 Conclusion SINUS RHYTHM WITH OCCASIONAL VENTRICULAR PREMATURE COMPLEXES WITH OCCASIONAL SUPRAVENTRICULAR PREMATURE COMPLEXES INDETERMINATE AXIS BORDERLINE ECG UNCONFIRMED REPORT Electronically signed by : Ferdinand Steven MD 05/18/2021 16:00:21
[2021-05-17 20:59] VITALS: BP 126/60; PULSE 60; RESP 16; TEMP 36.7; O2SAT 99
== END 2021-05-17 21:05 | disposition home or self-care (01) ==
LOC: ER 15:48 → UTC 16:31 → ER 16:34
PROVIDERS: Emergency Provider Emergency Medicine; PCP Emergency Medicine
DX: G45.8 Other transient cerebral ischemic attacks and related syndromes (principal); F41.8 Other specified anxiety disorders; G62.9 Polyneuropathy, unspecified; I10 Essential (primary) hypertension; E78.5 Hyperlipidemia, unspecified; I25.10 Atherosclerotic heart disease of native coronary artery without angina pectoris; J44.9 Chronic obstructive pulmonary disease, unspecified; Z79.899 Other long term (current) drug therapy; Z87.891 Personal history of nicotine dependence; R29.700 NIHSS score 0
CPT/HCPCS: 70450; 70496; 70498; 80048; 80076; 85025; 85610; 93005; 96360; 99284; Q9967

== ENCOUNTER → 2021-05-20 08:43 | Outpatient (CLI) | payer MEDICARE, OTHER, SELFPAY ==
[2021-05-20 08:50] LABS: Microscopic, Urine URINE MICROSCOPIC (MICROSCOPIC)
[2021-05-20 09:09] LABS: Basophils # 0.1 K/mm3 (0-0.2); Basophils % 1.1 % (0.1-2.0); Eosinophils # 0.7 K/mm3 (0.0-0.4); Eosinophils % 7.3 % (0.1-12.0); Hematocrit 42.2 % (42.0-52.0); Hemoglobin 13.7 g/dL (14.1-18.0); Lymphocytes # 2.2 K/mm3 (0.7-4.5); Lymphocytes % 23.6 % (10-50); Mean Corpuscular HGB Conc 32.5 g/dL (31.8-35.4); Mean Corpuscular Hemoglobin 32.1 pg (27.0-31.2); Mean Corpuscular Volume 98.9 fl (80-94); Mean Platelet Volume 9.2 fl (7.4-10.4); Monocytes # 0.5 K/mm3 (0.1-1.0); Monocytes % 5.7 % (1.7-9.3); Neutrophils # 5.7 K/mm3 (1.8-7.8); Neutrophils % 62.2 % (37.0-80.0); Platelet Count 234 K/mm3 (142-424); Red Blood Count 4.27 M/mm3 (4.60-6.20); Red Cell Distribution Width 13.7 % (11.5-17.5); White Blood Count 9.1 K/mm3 (4.8-10.8)
[2021-05-20 09:45] LABS: Chloride 108 mmol/L (98-107); Sodium 139 mmol/L (136-145)
[2021-05-20 09:46] LABS: Albumin Level 3.5 g/dl (3.5-5.0); Potassium 4.2 mmoL/L (3.5-5.1)
[2021-05-20 09:48] LABS: Anion Gap 11.2 mEq/L (5-15); Blood Urea Nitrogen 20 mg/dl (9-20); Carbon Dioxide 24 mmol/L (22.0-30.0); Estimated Glomerular Filt Rate 37 ml/min (>60); GFR (African American) 44 ML/MIN (>60); Phosphorous 4.5 mg/dl (2.5-4.5)
[2021-05-20 09:49] LABS: Calcium 8.1 mg/dl (8.4-10.2); Glucose 79 mg/dl (74-100)
[2021-05-20 10:06] LABS: 25-OH Vitamin D, Total 31.4 ng/mL (30-100)
[2021-05-20 10:33] LABS: Intact Parathyroid Hormone 98.9 pg/mL (7.5-53.5)
[2021-05-20 13:13] LABS: Appearance,Urine CLEAR (Clear); Bilirubin,Urine Negative (Negative); Blood, Urine Negative (Negative); Color,Urine YELLOW (Yellow); Glucose,Urine (UA) Negative (Negative); Ketones,Urine Negative (Negative); Leukocyte Esterase,Urine Negative (Negative); Nitrate,Urine Negative (Negative); Protein,Urine Negative (Negative); Urobilinogen,Urine 0.2 EU/dl (0.2)
[2021-05-20 13:21] LABS: Creatinine,Urine Random 65 mg/dL (Not Estab.)
[2021-05-20 13:28] LABS: Bacteria,Urine Trace /lpf; Mucus,Urine Trace /lpf; Squamous Epithelial Cell,Urine Occasional #/hpf (0-5); WBC,Urine Occasional #/hpf (0-3)
== END ==
PROVIDERS: Visit Provider Internal Medicine Nephrology
DX: N18.30 Chronic kidney disease, stage 3 unspecified (principal); E55.9 Vitamin D deficiency, unspecified
CPT/HCPCS: 36415; 80069; 81001; 82306; 82570; 83970; 84155; 85025

== ENCOUNTER → 2021-05-25 16:22 | Outpatient (POV) | payer MEDICARE, OTHER, SELFPAY | PROVIDERS: Visit Provider Internal Medicine Nephrology | DX: Z00.00 Encounter for general adult medical examination without abnormal findings (principal) ==

== ENCOUNTER → 2021-05-26 15:19 | Outpatient (CLI) | payer MEDICARE, OTHER, SELFPAY ==
--- NOTE | 2021-05-26 15:20 | CA_ITS ---
APPROVED REPORT EXAM: Comprehensive 2D, Doppler, and color-flow Echocardiogram Possum Trapper: Liliana Holloway RVT Ht: 6 ft 0 in Wt: 169lbs BSA: 1.98 BP: 110/60 mmHg Indications: TIA,CAD,LAURA,MURMUR,PALPS,EX SMOKER,COPD 2D Dimensions LVOT 2.22 cm (M/F) 1.5-2.5 LA Volume 36.90 mL LA Volume Index 18.63 mL/m2 (M/F) 16-34 M-Mode Dimensions RVDd 2.73 cm (0.9-2.6) LA Diam 4.04 cm (1.9-4.0) LVDd 4.85 cm (3.5-5.7) Ao Diam 3.68 cm (2.0-3.7) LVDs 3.03 cm (3.5-5.7) IVSd 0.53 cm (0.6-1.1) PWd 1.33 cm (0.6-1.1) EF (Teich) 67.40% FS 37.50% EDV (Teich) 110.20 mL TAPSE 2.00 (<1.7) ESV (Teich) 35.90 mL LV Diastology E Decel Time 380.00 (160-240 msec) E/A Ratio 0.6 MED E' 6.80 (< 7 cm/sec) E'/MED E' Ratio 7.43 (>14) LAT E' 7.30 (<10 cm/sec) E/LAT E' Ratio 6.92 (>14) Aortic Valve AI PHT 571.00 ms AO Peak GR. 4.00 mmHg Mitral Valve MV E Max Brian. 50.00 (40-130 cm/s) MV A Velocity 82.00 (40-130 cm/s) E/A Ratio 0.62 MV Decel. Time 380.00 (160-240 ms) MV PHT 111.00 ms Pulmonary Valve PV Peak Velocity 86.00 (50-150 cm/s) Tricuspid Valve TR P. Velocity 320.00 cm/s RAP Estimate 10.00 mmHg RVSP 50.90 mmHg Left Ventricle Left atrium is mildly enlarged, left ventricle is normal size, mild concentric left ventricular hypertrophy, estimated ejection fraction 55% with no regional wall motion abnormality, grade 1 diastolic dysfunction seen without tissue Doppler evidence of raise left atrial pressure. Right Ventricle Right atrium and right ventricle mildly enlarged with normal contractility. Aortic Valve Aortic valve is minimally thickened and calcified without aortic stenosis, there is mild aortic insufficiency. Mitral Valve Mitral valve is grossly normal, there is mild mitral regurgitation. Tricuspid Valve Tricuspid valve grossly normal, there is mild tricuspid regurgitation, calculated right ventricular systolic pressure is 50 mmHg. Pulmonic Valve Pulmonic valve is poorly visualized. Great Vessels Aortic root is normal size. Inferior vena cava is poorly visualized. Pericardium No significant pericardial effusion noted. Conclusion 1. Biatrial enlargement, normal left ventricular size, mild concentric left ventricular hypertrophy, estimated ejection fraction 55% with no regional wall motion abnormality, grade 1 diastolic dysfunction seen without tissue Doppler evidence of raise left atrial pressure. 2. Mildly enlarged right ventricle with normal contractility. 3. Mild aortic, mild mitral and tricuspid regurgitation, calculated right ventricular systolic pressure is 50 mmHg. 4. No significant pericardial effusion noted. 5. Inferior vena cava is poorly visualized.. Electronically signed by : Darin Small MD 05/26/2021 17:20:29
--- NOTE | 2021-05-26 15:25 | ECG_ITS ---
APPROVED REPORT Exam: Resting ECG HR:57 bpm ECG Measurements Heart Rate 57 AXES IN 186 P 85 QRSd 97 QRS 60 QT 435 T 69 QTc 429 Conclusion SINUS BRADYCARDIA WITH SINUS ARRHYTHMIA INDETERMINATE AXIS BORDERLINE ECG UNCONFIRMED REPORT Electronically signed by : Ferdinand Steven MD 05/27/2021 12:49:02
--- NOTE | 2021-05-26 15:56 | MR_ITS ---
PROCEDURE INFORMATION: Exam: MR Head Without Contrast Exam date and time: 05/26/2021 4:22 PM Age: 80 years old Clinical indication: Pain; Headache; Additional info: Atypical spells. Episodes where have adrenaline and then exhausted and fatigue for days. Blurred visions during episodes. Symptoms xyrs but becoming more frequent. TECHNIQUE: Imaging protocol: MR of the head without contrast. COMPARISON: 1. CT ANGIO HEAD 05/17/2021 8:[address] HEAD/BRAIN WO CON 05/17/2021 3:54 PM 3. MR HEAD/BRAIN WO CON 11/05/2019 1:47 PM FINDINGS: Brain: Mild increased diffusion signal intensity is identified involving the left cerebral peduncle. There is no abnormal signal intensity on the remaining sequences. Artifact is suggested. No restricted diffusion within the brain to suggest an acute infarct. There are scattered foci of FLAIR hyperintensity within the cerebral white matter. There is no mass effect or restricted diffusion associated with these foci. In a patient this age, this likely represents chronic small vessel ischemic disease. A dilated perivascular space is visualized below the left basal ganglia. Cerebellar volume loss/atrophy visualized. There is stable prominence of sulci, compatible with atrophy. Tiny chronic lacunar infarcts are identified within the cerebellum. No cerebral edema. 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 Cerebral ventricles: The ventricles are age appropriate in size. Bones/joints: Unremarkable, as visualized. Paranasal sinuses: Normal as visualized. No acute sinusitis. Mastoid air cells: Minimal effusions within mastoid air cells bilaterally. Orbital cavities: Bilateral orbital lens implants. There is a tiny focus of hypointensity within the anterior aspect of the left optic globe on T2, which is hyperdense on CT. Soft tissues: Unremarkable, as visualized. Dural sinuses/cerebral veins: Increased FLAIR signal intensity is visualized within the left transverse and sigmoid venous sinuses, consistent with slow flow or thrombosis. This is chronic compared to the previous MRI. No occlusive thrombosis is identified of these venous sinuses on the recent prior CTA. IMPRESSION: 1. No acute infarct. 2. Increased FLAIR signal intensity is visualized within the left transverse and sigmoid venous sinuses, consistent with slow flow or thrombosis. This is chronic compared to the previous MRI. No occlusive thrombosis is identified of these venous sinuses on the recent prior CTA. 3. Mild white matter disease, likely representing chronic small vessel ischemic disease. 4. Stable atrophy. 5. Tiny chronic lacunar infarcts are identified within the cerebellum. 6. Additional findings described above.
== END ==
PROVIDERS: PCP Emergency Medicine; Visit Provider Specialist
DX: G47.33 Obstructive sleep apnea (adult) (pediatric) (principal); G95.9 Disease of spinal cord, unspecified; H91.93 Unspecified hearing loss, bilateral; R29.90 Unspecified symptoms and signs involving the nervous system; R40.4 Transient alteration of awareness; Z86.69 Personal history of other diseases of the nervous system and sense organs; Z99.89 Dependence on other enabling machines and devices
CPT/HCPCS: 70551; 93005; 93306

== ENCOUNTER → 2021-05-29 13:45 | Outpatient (CLI) | payer MEDICARE, OTHER, SELFPAY | PROVIDERS: PCP Emergency Medicine; Visit Provider Specialist | DX: R40.4 Transient alteration of awareness (principal); R06.09 Other forms of dyspnea | CPT/HCPCS: 93270 ==

== ENCOUNTER 2021-08-16 14:00 | Outpatient (RCR) | payer MEDICARE, OTHER, SELFPAY | END 2021-08-16 14:05 | disposition home or self-care (01) | LOC: PT 14:00 | PROVIDERS: PCP Emergency Medicine; Visit Provider Nurse Practitioner Family | DX: R27.8 Other lack of coordination (principal); G95.9 Disease of spinal cord, unspecified | CPT/HCPCS: 97110; 97163 ==

== ENCOUNTER 2021-09-08 14:16 | Observation (INO) | payer MEDICARE, OTHER, SELFPAY ==
[2021-09-08] VITALS (13 sets, daily range): BP systolic 87–113; BP diastolic 40–59; PULSE 53–79; RESP 12–20; TEMP 36.5–36.6; O2SAT 92–99; BMI 23.0; BMI 23.8
--- NOTE | 2021-09-08 14:33 | ECG_ITS ---
APPROVED REPORT Exam: Resting ECG HR:50 bpm ECG Measurements Heart Rate 50 AXES WI 185 P 60 QRSd 95 QRS 2 QT 461 T 67 QTc 435 Conclusion SINUS BRADYCARDIA BORDERLINE ECG UNCONFIRMED REPORT Electronically signed by : Ferdinand Steven MD 09/09/2021 21:40:01
--- NOTE | 2021-09-08 14:38 | CT_ITS ---
FINAL REPORT CLINICAL HISTORY: SYNCOPE/BLURRED VISION FINDINGS: Axial images of the head were obtained without contrast. Coronal reformatted images were also obtained. This study was performed with techniques to keep radiation doses as low as reasonably achievable (ALARA). Individualized dose reduction techniques using automated exposure control or adjustment of mA and/or kV according to the patient's size were employed. There is generalized age-appropriate atrophy. Periventricular low-attenuation areas are seen consistent with mild chronic ischemic changes. There is no evidence of intracranial hemorrhage or mass. There is no evidence of acute infarct. There is no evidence of shift of the midline structures. No skull abnormality is seen on the bone window images. IMPRESSION: Atrophy and mild periventricular chronic ischemic changes. No acute intracranial abnormality identified. Reviewed, Interpreted and Dictated by John Valdez III, MD Transcribed by Sohpia Gould Authenticated and [facility]
--- NOTE | 2021-09-08 14:38 | XR_ITS ---
FINAL REPORT CLINICAL HISTORY: SYNCOPE FINDINGS: SINGLE-VIEW CHEST The heart size is normal. The mediastinum is normal. There is mild biapical scarring. The lungs are otherwise clear. There is no pneumothorax. IMPRESSION: No acute cardiopulmonary process. Reviewed, Interpreted and Dictated by John Valdez III, MD Transcribed by Sophia Gould Authenticated and [facility]
[2021-09-08 14:54] LABS: Basophils # 0.1 K/mm3 (0-0.2); Basophils % 0.7 % (0.1-2.0); Eosinophils # 0.5 K/mm3 (0.0-0.4); Hematocrit 40.7 % (42.0-52.0); Hemoglobin 13.6 g/dL (14.1-18.0); Lymphocytes # 1.2 K/mm3 (0.7-4.5); Lymphocytes % 14.1 % (10-50); Mean Corpuscular HGB Conc 33.4 g/dL (31.8-35.4); Mean Corpuscular Hemoglobin 31.4 pg (27.0-31.2); Mean Corpuscular Volume 94.2 fl (80-94); Mean Platelet Volume 7.6 fl (7.4-10.4); Monocytes # 0.5 K/mm3 (0.1-1.0); Monocytes % 5.3 % (1.7-9.3); Neutrophils # 6.4 K/mm3 (1.8-7.8); Neutrophils % 73.9 % (37.0-80.0); Platelet Count 211 K/mm3 (142-424); Red Blood Count 4.32 M/mm3 (4.60-6.20); Red Cell Distribution Width 13.7 % (11.5-17.5); White Blood Count 8.7 K/mm3 (4.8-10.8)
[2021-09-08 14:57] LABS: Chloride 106 mmol/L (98-107); Potassium 4.7 mmoL/L (3.5-5.1); Sodium 139 mmol/L (136-145)
--- NOTE | 2021-09-08 14:57 | PC.NURSE ---
Patient's family member came out to the nurses station asking for a blanket. Gave them 2 blankets and asked if they needed anything else. She said not at this time.
[2021-09-08 15:00] LABS: Alanine Aminotransferase 30 U/L (12-78); Alkaline Phosphatase 85 U/L (38-126); Anion Gap 12.7 mEq/L (5-15); Aspartate Amino Transferase 34 U/L (17-59); Bilirubin,Total 0.5 mg/dl (0.2-1.3); Blood Urea Nitrogen 22 mg/dl (9-20); Calcium 9.3 mg/dl (8.4-10.2); Carbon Dioxide 25 mmol/L (22.0-30.0); Creatinine Clearance Estimated 34 mL/min (50-200); Estimated Glomerular Filt Rate 34 ml/min (>60); GFR (African American) 42 ML/MIN (>60); Glucose 104 mg/dl (74-100)
--- NOTE | 2021-09-08 15:02 | PC.NURSE ---
pt to rad
[2021-09-08 15:15] LABS: Albumin Level 3.8 g/dl (3.5-5.0); Albumin/Globulin Ratio 1.2 (1.1-1.8); Globulin 3.2 g/dL (1.3-3.2)
--- NOTE | 2021-09-08 15:16 | PC.NURSE ---
Pt returned from radiology
--- NOTE | 2021-09-08 15:22 | PC.NURSE ---
Went into patient room to readjust BP cuff.
--- NOTE | 2021-09-08 15:22 | HMH.EDGENADL ---
ED Disposition Clinical Impression: Syncope and collapse Hypotension Qualifiers: Hypotension type: unspecified hypotension type Qualified Code(s): I95.9 - Hypotension, unspecified Disposition: Admitted as Observation Condition on Discharge: [facility] - Critical Care Critical Care Time: No Attestation: On 09/08/21, the high probability of a clinically significant, sudden or life threatening deterioration of the following system(s) required my full and direct attention, intervention and personal management. The time I documented below is in addition to time spent performing reported procedures but includes the following listed in this critical care notation. Medical Decision Making - Demond Inquiry Pt receiving controlled substance: No Vital Signs: 09/08/21 14:18 09/08/21 15:20 09/08/21 15:42 Temperature 97.7 F Temperature Source Oral Pulse Rate 63 59 L Pulse Rate [Radial] 53 L Respiratory Rate 16 14 14 Blood Pressure 92/47 L 87/56 L Blood Pressure [Right Arm] 90/40 L Blood Pressure Mean 68 64 Blood Pressure Mean [Right Arm] 56 Blood Pressure Position Blood Pressure Position [Right Arm] Sitting 02 Sat by Pulse Oximetry 98 97 93 L Oxygen Delivery Method Room Air Room Air Room Air 09/08/21 16:00 09/08/21 16:23 09/08/21 16:30 Temperature Temperature Source Pulse Rate 55 L 79 63 Pulse Rate [Radial] Respiratory Rate 14 15 13 Blood Pressure 91/59 L 90/52 L 95/51 L Blood Pressure [Right Arm] Blood Pressure Mean 70 60 Blood Pressure Mean [Right Arm] Blood Pressure Position Blood Pressure Position [Right Arm] 02 Sat by Pulse Oximetry 95 92 L 96 Oxygen Delivery Method Room Air Room Air 09/08/21 16:53 09/08/21 17:00 09/08/21 17:30 Temperature Temperature Source Pulse Rate 60 55 L 60 Pulse Rate [Radial] Respiratory Rate 12 12 12 Blood Pressure 98/54 L 99/54 L 110/51 L Blood Pressure [Right Arm] Blood Pressure Mean 60 56 Blood Pressure Mean [Right Arm] Blood Pressure Position Blood Pressure Position [Right Arm] 02 Sat by Pulse Oximetry 96 95 96 Oxygen Delivery Method Room Air Room Air 09/08/21 18:00 09/08/21 18:41 Temperature 98 F Temperature Source Oral Pulse Rate 65 62 Pulse Rate [Radial] Respiratory Rate 16 16 Blood Pressure 95/52 L 113/57 L Blood Pressure [Right Arm] Blood Pressure Mean 66 Blood Pressure Mean [Right Arm] Blood Pressure Position Sitting Blood Pressure Position [Right Arm] 02 Sat by Pulse Oximetry 98 Oxygen Delivery Method Room Air - Lab Data Lab Results 09/08/21 14:45: WBC 8.7, RBC 4.32 L, Hgb 13.6 L, Hct 40.7 L, MCV 94.2 H, MCH 31.4 H, MCHC 33.4, RDW 13.7, Plt Count 211, MPV 7.6, Neut % (Auto) 73.9, Lymph % (Auto) 14.1, Mower % (Auto) 5.3, Eos % (Auto) 6.0, Baso % (Auto) 0.7, Neut # (Auto) 6.4, Lymph # (Auto) 1.2, Mower # (Auto) 0.5, Eos # (Auto) 0.5 H, Baso # (Auto) 0.1 09/08/21 14:45: Sodium 139, Potassium 4.7, Chloride 106, Carbon Dioxide 25, Anion Gap 12.7, BUN 22 H, Creatinine 1.90 H, Estimated Creat Clear 34, Estimated GFR 34 L, Est GFR ( Amer) 42 L, Glucose 104 H, Calcium 9.3, Total Bilirubin 0.5, AST 34, ALT 30, Alkaline Phosphatase 85, Troponin I < 0.01, Total Protein 7.0, Albumin 3.8, Globulin 3.2, Albumin/Globulin Ratio 1.2 09/08/21 16:13: Total Valproic Acid < 10.0 L 09/08/21 17:30: SARS-CoV-2 (PCR) Not detected, Influenza A Untype (PCR) Not detected, Influenza Type B (PCR) Not detected 09/08/21 17:38: Urine Color Yellow, Urine Appearance Clear, Urine pH 6.0, Ur Specific [place] 1.010, Urine Protein Negative, Urine Glucose (UA) Negative, Urine Ketones Negative, Urine Blood Negative, Urine Nitrate Negative, Urine Bilirubin Negative, Urine Urobilinogen 0.2, Ur Leukocyte Esterase Negative, Urine RBC None, Urine WBC Occasional, Ur Squamous Epith Cells Occasional, Urine Bacteria None 09/08/21 17:48: Troponin I < 0.01 Result diagrams: 09/08/21 14:45 09/08/21 14:45 Orders (Tests/Meds):
[2021-09-08 15:23] LABS: Troponin I < 0.01 ng/ml (0.00-0.034)
--- NOTE | 2021-09-08 16:02 | PC.NURSE ---
Second bag of IVF started at this time, pt sitting up in bed, at BS, call light hooked to pt bed rail- pt oriented to call light prior to leaving his room. will continue to monitor
--- NOTE | 2021-09-08 16:24 | PC.NURSE ---
direct extension has been called; Areli answered the phone and said will give us a call back
[2021-09-08 16:41] LABS: Valproic Acid, (Depakene) < 10.0 ug/ml (50-100)
--- NOTE | 2021-09-08 16:49 | PC.NURSE ---
on the phone with
--- NOTE | 2021-09-08 16:57 | PC.NURSE ---
Pt to be admitted for observation per Mckenzie in case management
[2021-09-08 17:38] LABS: Coronavirus 19, PCR Not Detected (NotDetected); Influenza A, PCR Not Detected (NotDetected); Influenza B, PCR Not Detected (NotDetected)
--- NOTE | 2021-09-08 17:40 | PC.NURSE ---
Rounded on patient. Patient stated he need to use the restroom. Assisted patient to the bathroom.
[2021-09-08 17:54] LABS: Microscopic, Urine URINE MICROSCOPIC (MICROSCOPIC)
[2021-09-08 17:55] LABS: Appearance,Urine CLEAR (Clear); Bilirubin,Urine Negative (Negative); Blood, Urine Negative (Negative); Color,Urine YELLOW (Yellow); Glucose,Urine (UA) Negative (Negative); Ketones,Urine Negative (Negative); Leukocyte Esterase,Urine Negative (Negative); Nitrate,Urine Negative (Negative); Protein,Urine Negative (Negative); Urobilinogen,Urine 0.2 EU/dl (0.2)
[2021-09-08 18:17] LABS: Squamous Epithelial Cell,Urine Occasional #/hpf (0-5); WBC,Urine Occasional #/hpf (0-3)
[2021-09-08 18:18] LABS: Troponin I < 0.01 ng/ml (0.00-0.034)
--- NOTE | 2021-09-08 18:22 | PC.NURSE ---
REPORT CALLED TO FLOOR
--- NOTE | 2021-09-08 18:35 | PC.NURSE ---
2nd lasting floorworker in room with patient taking him up in a wheelchair
--- NOTE | 2021-09-08 18:40 | PC.NURSE ---
Pt arrived to the floor at this time
--- NOTE | 2021-09-08 18:53 | PC.NURSE ---
to bring in home meds and cpap
[2021-09-08 21:25] LABS: Troponin I < 0.01 ng/ml (0.00-0.034)
[2021-09-09 04:00] VITALS: BP 99/48; PULSE 60; RESP 16; TEMP 36.6; O2SAT 95
[2021-09-09 04:39] VITALS: BMI 24.5
--- NOTE | 2021-09-09 04:44 | PC.NURSE ---
Patient a&Ox4. No syncope nor dizziness episodes noted. Patient bp has been adequate. Patient uses cpap while sleeping tolerating well. Home meds locked in omni.
[2021-09-09 06:33] LABS: Basophils # 0.1 K/mm3 (0-0.2); Basophils % 0.7 % (0.1-2.0); Eosinophils # 0.5 K/mm3 (0.0-0.4); Eosinophils % 7.1 % (0.1-12.0); Hematocrit 37.6 % (42.0-52.0); Lymphocytes # 1.4 K/mm3 (0.7-4.5); Lymphocytes % 18.3 % (10-50); Mean Corpuscular HGB Conc 32.2 g/dL (31.8-35.4); Mean Corpuscular Hemoglobin 31.5 pg (27.0-31.2); Mean Corpuscular Volume 97.7 fl (80-94); Mean Platelet Volume 7.8 fl (7.4-10.4); Monocytes # 0.5 K/mm3 (0.1-1.0); Monocytes % 6.1 % (1.7-9.3); Neutrophils % 67.7 % (37.0-80.0); Platelet Count 174 K/mm3 (142-424); Red Blood Count 3.85 M/mm3 (4.60-6.20); Red Cell Distribution Width 13.8 % (11.5-17.5); White Blood Count 7.4 K/mm3 (4.8-10.8)
[2021-09-09 07:00] LABS: Anion Gap 6.3 mEq/L (5-15); Blood Urea Nitrogen 17 mg/dl (9-20); Calcium 7.8 mg/dl (8.4-10.2); Carbon Dioxide 24 mmol/L (22.0-30.0); Chloride 112 mmol/L (98-107); Creatinine Clearance Estimated 46 mL/min (50-200); Estimated Glomerular Filt Rate 45 ml/min (>60); GFR (African American) 55 ML/MIN (>60); Glucose 103 mg/dl (74-100); Potassium 4.3 mmoL/L (3.5-5.1); Sodium 138 mmol/L (136-145)
[2021-09-09 08:00] VITALS: BP 103/44; PULSE 61; RESP 16; TEMP 36.5; O2SAT 96
--- NOTE | 2021-09-09 08:07 | P.CONPHA_ITS ---
[facility] Pharmacy VTE Monitoring - Patient Demographics Admission date: 09/08/21 Report Date: 09/09/21 Time: 08:07 Allergies/Adverse Reactions: Patient Allergies levetiracetam [From [facility]] Adverse Reaction (Severe, Verified 08/08/21 12:58) anger, depression, gait disturbance Height: 1.83 m Weight: 82.055 kg Patient Problems: Current Active Problems (Last Updated 03/06/19 @ 09:21 by Indira Henderson RN) Syncope and collapse (Acute) Hypotension (Acute) - VTE Risk Labs: VTE Related Lab Results Hgb 12.0 g/dL (14.1-18.0) L D 09/09/21 06:13 Hct 37.6 % (42.0-52.0) L 09/09/21 06:13 Plt Count 174 K/mm3 (142-424) 09/09/21 06:13 BUN 17 mg/dl (9-20) 09/09/21 06:13 Creatinine 1.50 mg/dl (0.66-1.25) H D 09/09/21 06:13 Estimated Creat Clear 46 mL/min (50-200) 09/09/21 06:13 Was VTE Risk Assessment Performed: Yes VTE Score: 5 VTE Risk Level: Low Risk - Prophylaxis VTE Prophylaxis Ordered?: Yes Types of VTE Prophylaxis: TEDS Knee High Location of Applied Device: Bilateral Lower Extremeties
--- NOTE | 2021-09-09 08:18 | HMH.PHAINT ---
MEDICATION RECONCILIATION COMPLETED ON PATIENT USING EXTERNAL FILL HISTORY FROM PHARMACY AND PATIENT'S OWN RX BOTTLES. -ANA M BLAIRD
--- NOTE | 2021-09-09 09:18 | HMH.HP ---
*Admission Date: 09/08/21 *Chief complaint: syncope *History of present illness: this patient with acute syncopal episode and was seen in the ed - PER PVT CAR WITH C/O SYNCOPAL EPISODE AT HOME PT STATES HE GOT UP TO FAST. PT STATES HIT HIS HEAD AND HAS BEEN HAVING BLURRED VISION SINCE. STATES HE WASN'T OUT THAT LONG . PT C/O NAUSEA. DENIES CHEST PAIN, SOB, Patient states that he passed out at home. He says he got up and was walking and got lightheaded and his knees buckled and he fell to the ground. He thinks he hit the right side of his head because he has a sore spot on the posterior right side of his head. Denies any other injury or pain. He had no other symptoms before passing out, no chest pain or shortness of breath, headache, abdominal pain, back pain. Since the syncopal episode his vision has been blurry but it has improved in the emergency department. No numbness or weakness of extremities. He has not recently been ill in any way. His only recent medication changes the addition of lamotrigine for seizure disorder. He is on his second week. He has had chronic problems with dizziness and lightheadedness after he stands up, but this is the first time he has had syncope. pt remained to have some sx despite ed treatment and was admitted for eval and treatment [facility] History I have reviewed the patient's past medical history: Yes Medical History: Reports:: Anxiety, Arrhythmia, Asthma, Chronic Obstructive Pulmonary Disease (COPD), Coronary Artery Disease, Depression, Heart Murmur, Hyperlipidemia, Hypertension, Palpitations, Renal Disease, Seizures Denies:: Internal Pacemaker *Have you ever received a pneumonia vaccine?: Yes *Have you received a flu vaccine this season?: Yes Other Medical History: Reports: Anemia, Glaucoma, Thyroid Disease Other Surgeries: Yes: No Previous Surgery, Angioplasty, Cardiac Catheterization, Colonoscopy, Coronary Stent (8), Other. No: Pacemaker Amputation: No Fractures: No - *Social History Smoking Status: Former smoker Tobacco Type: cigarettes Smoking End Date: 02/18/1989 Alcohol Intake: never Alcohol Intake Frequency:: other Substance Use Type: denies use *Occupational Status:: retired Housing: house Household Members: spouse *Travel in the last 8 weeks: None - Psychiatric History Pschychiatric History:: Reports:: Anxiety, Depression Family Hx:: Coronary Artery Disease, Hypertension Review of Systems - Review of Systems Review of systems:: pertinent systems reviewed and negative unless documented below - Constitutional Denies fever(s) - Eyes Denies change in vision - ENT Denies sore throat - *Cardiovascular Reports slow heart rate, Denies chest pain at rest - *Respiratory Denies cough - *Gastrointestinal Denies abdominal pain - *Genitourinary Denies blood in urine - *Musculoskeletal Denies joint swelling - Integumentary/Breasts Denies rash - *Neurologic Reports fainting, Denies headache(s), Denies numbness, Denies weakness - Psychiatric Denies confusion Meds Home Medications Medication Instructions Recorded Confirmed Type aspirin 81 mg tablet,delayed 81 mg PO DAILY 03/19/17 09/09/21 History release brinzolamide 1 % eye 1 drp OP TID ml 03/19/17 09/09/21 History drops,suspension Atorvastatin Calcium [Lipitor 40mg 40 mg PO HS 09/08/21 09/08/21 History Tab] Budesonide/Formoterol Fumarate 2 puff IH BID 09/08/21 09/08/21 History [Budesonide-Formoterol 160-4.5] Gabapentin 300 mg PO HS 09/08/21 09/08/21 History PARoxetine HCL [Paroxetine HCl] 40 mg PO DAILY 09/08/21 09/08/21 History Spironolactone [Spironolactone 25 mg PO DAILY 09/08/21 09/08/21 History 25mg Tablet] carvediloL [Carvedilol 12.5mg Tab] 6.25 mg PO BID 09/08/21 09/09/21 History lamoTRIgine [Lamotrigine] 25 mg PO BID 09/08/21 09/09/21 History Albuterol Sulfate [Ventolin HFA] 2 puff IH Q4HP PRN 09/09/21 09/09/21 History Ipratropium/Albuterol Sulfate 3 ml IH Q6HP PRN
--- NOTE | 2021-09-09 13:31 | HMH.PTEV ---
Physical Therapy Evaluation Rehab PT IP Evaluation Start: 09/09/21 09:29 Freq: ONCE Status: Active Protocol: Document 09/09/21 11:00 JEAN (Rec: 09/09/21 13:30 JEAN [id number]) Subjective/History History History Pt is a 81 y/o male who presented to ED on 09/08/21 following report of syncopal episode at home. Pt reports he often gets dizzy when standing but this time his legs buckled underneath him. He states his was nearby and helped him up. Pt reports he thinks he hit his head because it is sore and had blurred vision following that has since improved. Pt reports he lives at home with his and daughter. He reports he was indepenent with ambulation and ADLs prior to this episode but has required some assistance from nursing to walk to/from the bathroom. Pt reports he has a quad cane at home that he only uses for long distance ambulation due to neuropathy in his feet, states he was able to perform household ambulation independently. Pt reports he does have 7 stairs to enter his home with a HR but was able to navigate them independently prior. Pt denies falls other than this syncopal episode. Subjective Subjective Pt reports he is feeling better with improved vision. Rehab PT IP Eval Objective Appearance Patient Behavior Appropriate,Cooperative Patient Orientation Person,Place,Time,Name, Birthday,Situation Difficulty following instructions none Speech Pattern Clear,Appropriate,Coherent Ambulation Patient Able to Ambulate Yes Ambulation Observation IP General Gait Pattern Observation Decrease Stride Lngth (R), Decrease Stride Lngth (L) Ambulation Distance (feet) 15 Ambulation Assistive Device None Ambulation Ability Contact Guard/Hand Hold,
[2021-09-09 15:26] VITALS: BP 97/45; PULSE 66; RESP 16; TEMP 36.6; O2SAT 95
--- NOTE | 2021-09-09 15:43 | PC.NURSE ---
Pt is A/O x4. He had a PT eval today. He ate breakfast and lunch and tolerated well. He denies any pain, N/V, or needing anything. He has home medication in the omni.
[2021-09-09 19:40] VITALS: BP 125/64; PULSE 64; RESP 18; TEMP 36.5; O2SAT 97
--- NOTE | 2021-09-09 20:18 | HMH.DCSUM ---
General - General Admission date:: 09/08/21 Discharge date: 09/09/21 HPI HPI: this patient with acute syncopal episode and was seen in the ed - PER [facility] WITH C/O SYNCOPAL EPISODE AT HOME PT STATES HE GOT UP TO FAST. PT STATES HIT HIS HEAD AND HAS BEEN HAVING BLURRED VISION SINCE. STATES HE WASN'T OUT THAT LONG . PT C/O NAUSEA. DENIES CHEST PAIN, SOB, Patient states that he passed out at home. He says he got up and was walking and got lightheaded and his knees buckled and he fell to the ground. He thinks he hit the right side of his head because he has a sore spot on the posterior right side of his head. Denies any other injury or pain. He had no other symptoms before passing out, no chest pain or shortness of breath, headache, abdominal pain, back pain. Since the syncopal episode his vision has been blurry but it has improved in the emergency department. No numbness or weakness of extremities. He has not recently been ill in any way. His only recent medication changes the addition of lamotrigine for seizure disorder. He is on his second week. He has had chronic problems with dizziness and lightheadedness after he stands up, but this is the first time he has had syncope. pt remained to have some sx despite ed treatment and was admitted for eval and treatment Hospital Course Hospital Course: pt improved with ivf and returned to baseline - pt with labs improved - pt was tolerating diet and activity and had neg card enz and no focal neuro sx to suggest cva- pt will be d/c to see card and pcp Objective Vital signs: Temp Pulse Resp BP Pulse Ox 97.7 F 64 18 125/64 97 09/09/21 19:40 09/09/21 19:40 09/09/21 19:40 09/09/21 19:40 09/09/21 19:40 no acute distress - *Routine HEENT Exam Head: Present: normocephalic Eye: Present: EOMI, PERRL ENT: Present: mucous membranes moist - *Routine Neck Exam Present: supple. Absent: JVD - *Routine Respiratory Exam Present: CTA bilaterally - *Routine Cardiovascular Exam Present: RRR, murmur, S4 - *Routine Abdominal Exam Present: soft - *Routine Extremities Exam Absent: calf tenderness - *Routine Skin Exam Present: intact - *Routine Neurological Exam Present: alert, CN II-XII intact. Absent: motor deficit - Routine Psychiatric Exam Present: cooperative Results Labs on day of discharge: Labs from last 24 hours 09/09/21 09/09/21 09/08/21 06:13 06:13 20:50 WBC 7.4 RBC 3.85 L Hgb 12.0 L D Hct 37.6 L MCV 97.7 H MCH 31.5 H MCHC 32.2 RDW 13.8 Plt Count 174 MPV 7.8 Neut % (Auto) 67.7 Lymph % (Auto) 18.3 Craig % (Auto) 6.1 Eos % (Auto) 7.1 Baso % (Auto) 0.7 Neut # (Auto) 5.0 Lymph # (Auto) 1.4 Craig # (Auto) 0.5 Eos # (Auto) 0.5 H Baso # (Auto) 0.1 Sodium 138 Potassium 4.3 Chloride 112 H Carbon Dioxide 24 Anion Gap 6.3 BUN 17 Creatinine 1.50 H D Estimated Creat Clear 46 Estimated GFR 45 L Est GFR ( Amer) 55 L D Glucose 103 H Calcium 7.8 L Troponin I < 0.01 DS: Diagnosis - Discharge Diagnosis (1) TREVOR (acute kidney injury) Status: Acute (2) Syncope and collapse Status: Acute (3) Hypotension Status: Acute (4) Neuropathy Status: Acute Discharge Plan - Patient Discharge Instructions ACTIVITY: Continue current activity DIET: continue same diet Patient Instructions: DI for Syncope in Adults (Fainting), DI for Hypotension - Follow up Plan Disposition: Home, Self-Care Condition at discharge:: Improved Home Medications: Home Medications Medication Instructions Recorded Confirmed Type aspirin 81 mg tablet,delayed 81 mg PO DAILY 03/19/17 09/09/21 History release brinzolamide 1 % eye 1 drp OP TID ml 03/19/17 09/09/21 History drops,suspension Atorvastatin Calcium [Lipitor 40mg 40 mg PO HS 09/08/21 09/08/21 History Tab] Budesonide/Formoterol Fumarate 2 puf
--- NOTE | 2021-09-09 20:49 | PC.NURSE ---
patient left floor at this time.
== END 2021-09-09 20:49 | disposition home or self-care (01) ==
LOC: ER 16:05 → 2ND 17:10
PROVIDERS: Admitting Provider Emergency Medicine; Emergency Provider Emergency Medicine; PCP Emergency Medicine; Visit Provider Emergency Medicine
DX: R55 Syncope and collapse (principal); Z95.5 Presence of coronary angioplasty implant and graft; Z79.899 Other long term (current) drug therapy; I95.9 Hypotension, unspecified; I10 Essential (primary) hypertension; I25.10 Atherosclerotic heart disease of native coronary artery without angina pectoris; J44.9 Chronic obstructive pulmonary disease, unspecified; G40.909 Epilepsy, unspecified, not intractable, without status epilepticus; Z87.891 Personal history of nicotine dependence; Z20.822 Contact with and (suspected) exposure to COVID-19
CPT/HCPCS: G0378; 36415; 70450; 71045; 80048; 80053; 80164; 81001; 84484; 85025; 93005; 97162; 99285; C9803; U0003; U0005

== ENCOUNTER → 2022-01-29 12:57 | Outpatient (CLI) | payer MEDICARE, OTHER, SELFPAY ==
--- NOTE | 2022-01-29 12:57 | FL_ITS ---
FINAL REPORT CLINICAL HISTORY: . INTERMITTENT DYSPHAGIa 1.53 fluoro time FINDINGS: MODIFIED BARIUM SWALLOW History: Dysphagia. FINDINGS: Fluoroscopy was provided for the speech pathologist to evaluate the swallowing mechanism. The patient was given several different consistencies of barium while the swallow was visualized fluoroscopically. The report of the speech pathologist should be consulted prior to making dietary decisions. FLUOROSCOPY TIME: 1 minute 53 seconds. 10 cine runs were obtained. IMPRESSION: Modified barium swallow under fluoroscopic guidance. Please see the report of the speech pathologist for more detail. Films reviewed , interpreted and dictated by Dr. Valdez. Transcribed by Jimmy Ryan PA-C. Reviewed, Interpreted and Dictated by John Valdez III, MD Transcribed by PORFIRIO Stanley Authenticated and [facility]
--- NOTE | 2022-01-29 15:06 | HMH.SLMBS2 ---
Speech & Language Evaluation Speech/Language Mod Barium Swallow Start: 01/29/22 13:59 Freq: once Status: Complete Protocol: Document 01/29/22 14:02 [email or web address] (Rec: 01/29/22 15:02 ROBERT [id number]) General Information General Current Food Consistency Regular,Thin Liquids Dentition Upper & Lower Dentures Oxygen Status Room Air Facial Symmetry Symmetrical Patient Orientation Person,Place,Time,Situation Ability to Follow Directions Excellent Communication Ability No Impairment MBS Recommendations Diet Dietary Recommendations Regular,Thin Liquids Treatment/Strategies Strategy/Precaution Recommend Sitting Upright (90 deg),Small Bites and Sips,Alternate Liquids/Solids Mod Barium Swallow Impressions Summary and Impressions Oral Phase Impression No Impairment (WFL) Oral Phase Summary Adequate mastication and oral manipulation noted with solids . No significant oral residue was noted with any consistency trialed. No premature spillage noted. Pharyngeal Phase Impression Mild Impairment Pharyngeal Phase Summary No aspiration or penetration noted with any consistency trialed. Adequate airway protection was noted. Reduced hypolaryngeal movement, not impacting bolus flow through the UES. There is also a significant outpouching of tissue near C7 that would obstruct bolus flow with all consistencies. He also had retrograde flow of material up through the UES and into the pharynx. Pt did a spontaneous secondary swallow or requested a liquid wash each time this occurred, which cleared the material from the pharynx. Speech/Language MBS Assessment/Goals/Plan Assessment Date of Evaluation: 01/29/22 Evaluation Type Initial Certification Assessment/Problems Pt reports food sticking and coming back up. Does Patient Qualify for Service No Qualify/Failure Comment Based on the MBSS, no further skilled ST services are warranted at this time. Recommendations PHYSICIAN CERTIFICATION: The specified therapy services are requi
== END ==
PROVIDERS: PCP Emergency Medicine; Visit Provider Nurse Practitioner Family
DX: G95.9 Disease of spinal cord, unspecified (principal); R13.10 Dysphagia, unspecified
CPT/HCPCS: 70371; 92611

== ENCOUNTER 2022-03-16 07:05 | Emergency (ER) | payer MEDICARE, OTHER, SELFPAY ==
[2022-03-16] VITALS (9 sets, daily range): BP systolic 111–138; BP diastolic 54–73; PULSE 64–72; RESP 17–19; TEMP 36.7; O2SAT 94–96; BMI 23.0
--- NOTE | 2022-03-16 07:15 | ECG_ITS ---
APPROVED REPORT Exam: Resting ECG HR:70 bpm ECG Measurements Heart Rate 70 AXES NV 173 P 70 QRSd 92 QRS -55 QT 388 T 60 QTc 409 Conclusion SINUS RHYTHM WITH OCCASIONAL ECTOPIC PREMATURE COMPLEXES INDETERMINATE AXIS ABNORMAL ECG UNCONFIRMED REPORT Electronically signed by : Ferdinand Steven MD 03/16/2022 15:43:57
--- NOTE | 2022-03-16 07:30 | XR_ITS ---
FINAL REPORT CLINICAL HISTORY: soa COMPARISON: Chest CT from 04/05/2020 FINDINGS: TWO-VIEW CHEST Two views of the chest were obtained. The heart size and pulmonary vascularity are within normal limits. The mediastinum is normal. There are biapical densities likely due to pleural and parenchymal scarring. Findings are similar from chest CT. There is emphysema. There is no pneumothorax. The bony thorax is intact. IMPRESSION: No acute cardiopulmonary process. Reviewed, Interpreted and Dictated by Luisa Márquez MD Transcribed by Zoe Medeiros Authenticated and [facility]
[2022-03-16 07:36] LABS: Coronavirus 19, PCR Not Detected (NotDetected); Influenza A, PCR Not Detected (NotDetected); Influenza B, PCR Not Detected (NotDetected)
[2022-03-16 07:42] LABS: Basophils # 0.2 K/mm3 (0-0.2); Basophils % 1.4 % (0.1-2.0); Eosinophils # 0.7 K/mm3 (0.0-0.4); Eosinophils % 6.2 % (0.1-12.0); Hematocrit 46.2 % (42.0-52.0); Hemoglobin 15.4 g/dL (14.1-18.0); Lymphocytes # 1.9 K/mm3 (0.7-4.5); Lymphocytes % 17.8 % (10-50); Mean Corpuscular HGB Conc 33.3 g/dL (31.8-35.4); Mean Corpuscular Hemoglobin 31.8 pg (27.0-31.2); Mean Corpuscular Volume 95.6 fl (80-94); Mean Platelet Volume 8.1 fl (7.4-10.4); Monocytes # 0.6 K/mm3 (0.1-1.0); Monocytes % 5.6 % (1.7-9.3); Neutrophils # 7.5 K/mm3 (1.8-7.8); Neutrophils % 68.9 % (37.0-80.0); Platelet Count 274 K/mm3 (142-424); Red Blood Count 4.83 M/mm3 (4.60-6.20); Red Cell Distribution Width 14.4 % (11.5-17.5); White Blood Count 10.9 K/mm3 (4.8-10.8)
[2022-03-16 07:45] LABS: Lipase 61 U/L (23-300)
[2022-03-16 07:46] LABS: Alanine Aminotransferase 31 U/L (12-78); Albumin Level 4.4 g/dl (3.5-5.0); Albumin/Globulin Ratio 1.3 (1.1-1.8); Alkaline Phosphatase 90 U/L (38-126); Amylase 99 U/L (30-110); Anion Gap 13.1 mEq/L (5-15); Aspartate Amino Transferase 37 U/L (17-59); Bilirubin,Total 0.9 mg/dl (0.2-1.3); Blood Urea Nitrogen 25 mg/dl (9-20); Carbon Dioxide 26 mmol/L (22.0-30.0); Chloride 108 mmol/L (98-107); Creatinine Clearance Estimated 34 mL/min (50-200); Estimated Glomerular Filt Rate 34 ml/min (>60); GFR (African American) 42 ML/MIN (>60); Globulin 3.5 g/dL (1.3-3.2); Glucose 104 mg/dl (74-100); Potassium 4.1 mmoL/L (3.5-5.1); Sodium 143 mmol/L (136-145); Total Protein,Serum 7.9 g/dl (6.3-8.2)
[2022-03-16 07:57] LABS: Troponin I 0.05 ng/ml (0.00-0.034)
--- NOTE | 2022-03-16 07:59 | HMH.EDGENADL ---
Discharge Plan Disposition Patient Disposition: Home, Self-Care Condition: Good Prescriptions Prescriptions: New meclizine 25 mg tablet 25 mg PO QID PRN (Reason: dizziness) Qty: 20 0RF No Action sildenafil (pulm.hypertension) 20 mg tablet 20 mg PO DIRECTED PRN (Reason: sexual activity) Qty: 40 2RF gabapentin 300 mg capsule 300 mg PO HS Qty: 30 5RF aspirin [Adult Low Dose Aspirin] 81 mg tablet,delayed release (DR/EC) 81 mg PO DAILY brinzolamide [Azopt] 1 % drops,suspension 1 drp OP TID lamotrigine 100 mg tablet 100 mg PO BID Rx Instructions: TAKE 1/2 TABLET BY MOUTH TWICE DAILY FOR 7 DAYS, THEN TAKE 1/2 TABLET IN THE MORNING AND 1 tablet IN THE EVENING FOR 14 DAYS, THEN TAKE ONE TABLET TWICE DAILY THEREAFTER carvedilol 12.5 MG tablet 6.25 mg PO BID albuterol sulfate 8.5 GM HFA aerosol inhaler 2 puff IH Q4HP PRN (Reason: shortness of breath or wheezing) sacubitril-valsartan 24-26 mg tablet 0.5 tab PO BID Label Comments: TAKE 1/2 TABLET BY MOUTH TWICE DAILY atorvastatin 40 mg tablet See Rx Instructions .ROUTE .COMPLEX Rx Instructions: TAKE ONE TABLET BY MOUTH EVERY DAY paroxetine HCl 40 mg tablet See Rx Instructions .ROUTE .COMPLEX Rx Instructions: TAKE ONE TABLET BY MOUTH EVERY DAY Referrals Follow up/Referrals: Tomy Witt MD [Primary Care Provider] - See instructions Activity Restrictions/Add. Instructions Additional Instructions/Restrictions: Please return immediately to the emergency department if you feel worse in any way. Continue taking all medications as prescribed. Follow-up with company marker on Saturday at 1 PM as scheduled. Clinical Impressions Clinical Impression: Nausea Instructions Patient Instructions: Nausea and Vomiting-Adult Discharge ED Provider: Richa Broderick Adult HPI General Chief complaint: Shortness of Breath/Dyspnea Stated complaint: Weakness nausea SOA Time Seen by Provider: 03/16/22 08:00 Mode of Arrival: Wheelchair Source of Information: Patient and Spouse Limitations: No Limitations Description of Symptoms (Recalled from ER Triage Doc. by RN): pt comes in with c/o nausea, and shortness of air. symptoms have been ongoing for a few days. pt states that he just feels sick . History of Present Illness HPI narrative: The patient presents to the emergency department accompanied by his complaining of nausea for the last 3 to 4 days which is exacerbated by movement of his head and changes in position as well as walking. He has not vomited, he has not had any abdominal pain, he has had no diarrhea or change in bowel movements. Onset (ago): day(s) Severity: mild Related Data Home Medications Medication Instructions Recorded Confirmed aspirin 81 mg tablet,delayed 81 mg PO DAILY Heart disease 03/19/17 03/16/22 release (Adult Low Dose Aspirin) brinzolamide 1 % eye 1 drp ophthalmic (eye) TID Glaucoma 03/19/17 03/16/22 drops,suspension (Azopt) carvedilol 12.5 mg tablet 6.25 mg PO BID Hypertension 09/08/21 03/16/22 albuterol sulfate 90 mcg/actuation 2 puff inhalation Q4HP PRN 09/09/21 03/16/22 aerosol inhaler shortness of breath or wheezing lamotrigine 100 mg tablet 100 mg PO BID . 09/21/21 03/16/22 sacubitril 24 mg-valsartan 26 mg 0.5 tab PO BID Heart failure 09/21/21 03/16/22 tablet atorvastatin 40 mg tablet See Rx Instructions .Route 03/16/22 03/16/22 .COMPLEX . paroxetine HCl 40 mg tablet See Rx Instructions .Route 03/16/22 03/16/22 .COMPLEX . Previous Rx's Medication Instructions Recorded gabapentin 300 mg capsule 300 mg PO HS neuropathic pain #30 02/06/22 caps sildenafil (pulm.hypertension) 20 20 mg PO DIRECTED PRN sexual 02/06/22 mg tablet activity #40 tabs meclizine 25 mg tablet 25 mg PO QID PRN dizziness #20 tabs 03/16/22 Allergies Allergy/AdvReac Type Severity Reaction Status Date / Time levetiracetam [From [facility]] AdvRea
--- NOTE | 2022-03-16 08:33 | PC.NURSE ---
MD aware of trop of 0.05, contacting cardiology at this time.
--- NOTE | 2022-03-16 08:42 | PC.NURSE ---
at bs, updated pt about poc
--- NOTE | 2022-03-16 09:11 | PC.NURSE ---
magali from cardiology at [facility]
--- NOTE | 2022-03-16 10:07 | EXP.CARD.CON ---
History of Present Illness History of Present Illness Consult date: 03/16/22 Requesting physician: Richa Broderick Chief complaint: nausea Additional Medical History:: Significant Past Medical Hx CAD with MARY KAY Dyspnea on exertion Essential HTN Mixed Hyperlipidemia COPD and astham sees Dr. Campo CKD Echo 05/2021 Conclusion 1.? Biatrial enlargement, normal left ventricular size, mild concentric left ventricular hypertrophy, estimated ejection fraction 55% with no regional wall motion abnormality, grade 1 diastolic dysfunction seen without tissue Doppler evidence of raise left atrial pressure. 2.? Mildly enlarged right ventricle with normal contractility. 3.? Mild aortic, mild mitral and tricuspid regurgitation, calculated right ventricular systolic pressure is 50 mmHg. 4.? No significant pericardial effusion noted. 5.? Inferior vena cava is poorly visualized.. History of present illness: 81 year old white male with above past medical hx presented today to ER with complaint of nausea and dizziness x 3-4 days. Patient reports was in his usual state of health until 3 days ago when developed nausea. Denies vomiting, abdominal pain, diarrhea, fever or chills. Reports yesterday developed dizziness with position changes and nausea has continued. Denies any episodes of chest pain or pressure. Reports soa but states its related to his COPD and is at baseline. Upon presentation to ER, EKG showed nsr rate of 70 and no acute ischemic changes. Chest xray is negative for acute cardiopulmonary process. First trop was elevated at 0.05. Creatinine was at baseline of 1.9. Cardiology was asked to consult for elevated trop. Patient is resting comfortable. Denies chest pain, reports nausea is improving. [facility] Disclaimer: The information contained in this section may have been updated after the patient was seen, as this information can be updated by other users. Medical History Bradycardia Social History Smoking Status: Never smoker alcohol intake: never counseling provided: none substance use type: denies use current occupational status: retired Travel in the last 8 weeks: None household members: spouse housing: house caffeine: Yes Review of Systems Review of Systems Review of systems:: pertinent systems reviewed and negative unless documented below Constitutional Constitutional: Reports system reviewed and no additional complaints, except as documented *Cardiovascular Cardiovascular: Denies chest pain and Reports dyspnea *Respiratory Respiratory: Reports dyspnea *Gastrointestinal Gastrointestinal: Reports system reviewed and no additional complaints, except as documented and Reports nausea *Neurologic Neurologic: Reports system reviewed and no additional complaints, except as documented and Denies confusion Psychiatric Psychiatric: Reports system reviewed and no additional complaints, except as documented and Denies confusion Exam Data for Last 24 hours Vital signs and Labs for Last 24 Hours: Temp Pulse Resp BP Pulse Ox 98.1 F 65 17 130/67 95 03/16/22 07:05 03/16/22 09:30 03/16/22 09:30 03/16/22 09:30 03/16/22 09:30 Laboratory Results - last 24 hr 03/16/22 07:10: WBC 10.9 H, RBC 4.83, Hgb 15.4, Hct 46.2, MCV 95.6 H, MCH 31.8 H, MCHC 33.3, RDW 14.4, Plt Count 274, MPV 8.1, Neut % (Auto) 68.9, Lymph % (Auto) 17.8, [place] % (Auto) 5.6, Eos % (Auto) 6.2, Baso % (Auto) 1.4, Neut # (Auto) 7.5, Lymph # (Auto) 1.9, [place]ell # (Auto) 0.6, Eos # (Auto) 0.7 H, Baso # (Auto) 0.2 03/16/22 07:10: SARS-CoV-2 (PCR) Not detected, Influenza A Untype (PCR) Not detected, Influenza Type B (PCR) Not detected 03/16/22 07:10: Lipase 61 03/16/22 07:21: Sodium 143, Potassium 4.1, Chloride 108 H, Carbon Dioxide 26, Anion Gap 13.1, BUN 25 H, Creatinine 1.90 H, Estimated Creat Clear 34, Estimated GFR 34 L, Est GFR ( Amer) 42 L,
--- NOTE | 2022-03-16 10:27 | PC.NURSE ---
REPEAT TROP SENT TO LAB
[2022-03-16 10:44] LABS: Troponin I 0.09 ng/ml (0.00-0.034)
--- NOTE | 2022-03-16 11:07 | PC.NURSE ---
baljit blancas with cardiology notified of increased trop.
--- NOTE | 2022-03-16 11:07 | PC.NURSE ---
CONTACTING CARDIOLOGY WITH RESULTS OF 2ND TROP
--- NOTE | 2022-03-16 11:15 | PC.NURSE ---
CARDIOLOGY WANTS PT TO F/U IN OFFICE ON SATURDAY AT 1 PM
== END 2022-03-16 11:24 | disposition home or self-care (01) ==
PROVIDERS: Emergency Provider Emergency Medicine; PCP Emergency Medicine
DX: R11.0 Nausea (principal); I25.10 Atherosclerotic heart disease of native coronary artery without angina pectoris; R77.8 Other specified abnormalities of plasma proteins; J44.9 Chronic obstructive pulmonary disease, unspecified; R42 Dizziness and giddiness; N18.9 Chronic kidney disease, unspecified; I51.89 Other ill-defined heart diseases
CPT/HCPCS: 36415; 71046; 80053; 82150; 83690; 84484; 85025; 93005; 96361; 96374; 99285; C9803; J2405; U0003; U0005

== ENCOUNTER → 2022-05-23 12:20 | Outpatient (CLI) | payer MEDICARE, OTHER, SELFPAY ==
[2022-05-23 13:03] LABS: Basophils # 0.1 K/mm3 (0-0.2); Basophils % 0.8 % (0.1-2.0); Eosinophils # 0.7 K/mm3 (0.0-0.4); Hematocrit 44.1 % (42.0-52.0); Lymphocytes # 1.6 K/mm3 (0.7-4.5); Lymphocytes % 20.7 % (10-50); Mean Corpuscular HGB Conc 31.7 g/dL (31.8-35.4); Mean Corpuscular Hemoglobin 30.8 pg (27.0-31.2); Mean Corpuscular Volume 97.2 fl (80-94); Mean Platelet Volume 7.7 fl (7.4-10.4); Monocytes # 0.5 K/mm3 (0.1-1.0); Monocytes % 5.9 % (1.7-9.3); Neutrophils % 63.7 % (37.0-80.0); Platelet Count 271 K/mm3 (142-424); Red Blood Count 4.54 M/mm3 (4.60-6.20); Red Cell Distribution Width 14.2 % (11.5-17.5); White Blood Count 7.8 K/mm3 (4.8-10.8)
[2022-05-23 14:05] LABS: Microscopic, Urine URINE MICROSCOPIC (MICROSCOPIC)
[2022-05-23 16:42] LABS: Albumin Level 3.7 g/dl (3.5-5.0); Blood Urea Nitrogen 26 mg/dl (9-20); Calcium 8.5 mg/dl (8.4-10.2); Carbon Dioxide 24 mmol/L (22.0-30.0); Estimated Glomerular Filt Rate 37 ml/min (>60); GFR (African American) 44 ML/MIN (>60); Glucose 91 mg/dl (74-100)
[2022-05-23 16:48] LABS: Intact Parathyroid Hormone 138.2 pg/mL (7.5-53.5)
[2022-05-23 16:58] LABS: Anion Gap 12.8 mEq/L (5-15); Chloride 106 mmol/L (98-107); Potassium 4.8 mmoL/L (3.5-5.1); Sodium 138 mmol/L (136-145)
[2022-05-23 17:23] LABS: 25-OH Vitamin D, Total 19.1 ng/mL (30-100)
[2022-05-23 19:30] LABS: Appearance,Urine CLEAR (Clear); Bilirubin,Urine Negative (Negative); Blood, Urine Negative (Negative); Color,Urine YELLOW (Yellow); Glucose,Urine (UA) Negative (Negative); Ketones,Urine Negative (Negative); Leukocyte Esterase,Urine Negative (Negative); Nitrate,Urine Negative (Negative); Protein,Urine Negative (Negative); Specific Gravity, Urine 1.025 (1.005-1.030); Urobilinogen,Urine 0.2 EU/dl (0.2)
[2022-05-23 20:20] LABS: Creatinine,Urine Random 153 mg/dL (Not Estab.)
[2022-05-23 21:15] LABS: Squamous Epithelial Cell,Urine Occasional #/hpf (0-5)
== END ==
PROVIDERS: PCP Emergency Medicine; Referring Provider Internal Medicine Nephrology; Visit Provider Internal Medicine Pulmonary Disease
DX: R06.09 Other forms of dyspnea (principal); N18.32 Chronic kidney disease, stage 3b; E55.9 Vitamin D deficiency, unspecified
CPT/HCPCS: 36415; 80069; 81001; 82306; 82570; 83970; 84155; 85025; 94060; 94726; 94729

== ENCOUNTER → 2022-05-28 12:56 | Outpatient (POV) | payer MEDICARE, OTHER, SELFPAY | PROVIDERS: Visit Provider Internal Medicine Nephrology | DX: Z00.00 Encounter for general adult medical examination without abnormal findings (principal) ==

== ENCOUNTER 2022-07-09 15:26 | Emergency (ER) | payer MEDICARE, OTHER, SELFPAY ==
[2022-07-09] VITALS (9 sets, daily range): BP systolic 93–119; BP diastolic 50–68; PULSE 57–79; RESP 17–20; TEMP 36.6–36.8; O2SAT 94–96; BMI 23.7
--- NOTE | 2022-07-09 16:00 | EXP.UTC ---
Discharge Plan Disposition Patient Disposition: Home, Self-Care Prescriptions Prescriptions: No Action fluticasone propion-salmeterol [Advair Diskus] 100-50 mcg/dose blister with device 1 inh inhalation BID Qty: 90 3RF albuterol sulfate 90 mcg/actuation HFA aerosol inhaler 2 inh inhalation Q6H PRN (Reason: shortness of breath or wheezing) 90 Days Qty: 8.5 1RF sildenafil (pulm.hypertension) 20 mg tablet 20 mg PO DIRECTED PRN (Reason: sexual activity) Qty: 40 2RF gabapentin 300 mg capsule 300 mg PO HS Qty: 30 5RF aspirin [Adult Low Dose Aspirin] 81 mg tablet,delayed release (DR/EC) 81 mg PO DAILY brinzolamide [Azopt] 1 % drops,suspension 1 drp OP TID lamotrigine 100 mg tablet 100 mg PO BID Rx Instructions: TAKE 1/2 TABLET BY MOUTH TWICE DAILY FOR 7 DAYS, THEN TAKE 1/2 TABLET IN THE MORNING AND 1 tablet IN THE EVENING FOR 14 DAYS, THEN TAKE ONE TABLET TWICE DAILY THEREAFTER paroxetine HCl 40 mg tablet See Rx Instructions .ROUTE .COMPLEX Qty: 90 0RF Dose Instruction: TAKE ONE TABLET BY MOUTH EVERY DAY Rx Instructions: TAKE ONE TABLET BY MOUTH EVERY DAY carvedilol 12.5 MG tablet 6.25 mg PO BID albuterol sulfate 8.5 GM HFA aerosol inhaler 2 puff IH Q4HP PRN (Reason: shortness of breath or wheezing) sacubitril-valsartan 24-26 mg tablet 0.5 tab PO BID Label Comments: TAKE 1/2 TABLET BY MOUTH TWICE DAILY atorvastatin 40 mg tablet See Rx Instructions .ROUTE .COMPLEX Rx Instructions: TAKE ONE TABLET BY MOUTH EVERY DAY meclizine 25 mg tablet 25 mg PO QID PRN (Reason: dizziness) Qty: 20 0RF Referrals Follow up/Referrals: Tomy Witt MD [Primary Care Provider] - See instructions Activity Restrictions/Add. Instructions Additional Instructions/Restrictions: Follow-up with your primary care physician within the next few days. 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 Return for chest pain shortness of air or any other concerns within the next 8 hours Clinical Impressions Clinical Impression: Weakness Discharge ED Provider: Dianne Castañeda [facility] [place] HPI <Dianne Castañeda APRN - Last Filed: 07/09/22 19:44> General Chief complaint: Weakness Stated complaint: Weakness, tired Mode of Arrival: Ambulatory Source of Information: Patient Limitations: No Limitations Time Seen by Provider: 07/09/22 16:00 Description of Symptoms (Recalled from Triage Doc. by RN): PATIENT C/O EXHAUSTION, NO ENERGY, SHAKY, DIZZINESS, AND SOA THAT STARTED YESTERDAY. HE STATES THAT APPROX 1.5 WEEKS AGO HE HAD SOME LEFT SIDED CHEST PAIN THAT RADIATED INTO HIS LEFT ARM, BUT STATES HE DID NOT GET CHECKED OUT AND THAT THE PAIN WENT AWAY. REPORTS A HISTORY OF CARDIAC STENTS X 8 HEENT Symptoms (Recalled from RN notes): Yes Resp Symptoms (Recalled from RN notes): Yes Skin Symptoms (Recalled from RN notes): No MS Symptoms (Recalled from RN notes): No Functional Status (Recalled from RN notes): WNL History of Present Illness Provider Complaint: Patient states he has a hx of 8 stents States that last week he had some pain in the left side of his chest that went down left arm to about his wrist then went away and he never seen anyone for it States that since then he has felt weak and states that he feels like he is exhausted and so weak he is having to have assistance to walk states that she usually holds to him for balance but he has had to be helping him more than usual and he feels off, shaky, and dizzy and having SOA at times when he is up moving around States that he just does not feel right Denies any further CP since last week Related Data Home Medications Medication Instructions Recorded Confirmed aspirin 81 mg tablet,delayed 81 mg PO DAILY Heart disease 03/19/17 05/30/22 release (Adult Low Dose Aspirin) brinzolamide 1 % eye 1 drp ophthalmic (eye) TID Glaucoma 03/19/17 05/30/22 drops,suspension (Azopt) carv
--- NOTE | 2022-07-09 16:17 | ECG_ITS ---
APPROVED REPORT Exam: Resting ECG HR:61 bpm ECG Measurements Heart Rate 61 AXES NV 176 P 59 QRSd 97 QRS -32 QT 423 T 35 QTc 425 Conclusion SINUS RHYTHM LEFT AXIS DEVIATION [QRS AXIS < -30] ABNORMAL ECG UNCONFIRMED REPORT Electronically signed by : Ferdinand Steven MD 07/10/2022 21:21:51
--- NOTE | 2022-07-09 16:29 | XR_ITS ---
PROCEDURE INFORMATION: Exam: XR Chest Exam date and time: 07/09/2022 4:49 PM Age: 82 years old Clinical indication: Shortness of breath; Additional info: SOA TECHNIQUE: Imaging protocol: Radiologic exam of the chest. Views: 1 view. COMPARISON: CR XR CHEST 2V 03/16/2022 7:41 AM and chest x-ray 03/24/2020 FINDINGS: Lungs: Unremarkable. No consolidation. Biapical pleural-parenchymal scarring eryac-[id number]-left similar to previous Pleural spaces: Unremarkable. No pleural effusion. No pneumothorax. Heart/Mediastinum: Unremarkable. No cardiomegaly. Bones/joints: Unremarkable. IMPRESSION: Stable chest x-ray with no acute disease.
[2022-07-09 16:38] LABS: Basophils # 0.1 K/mm3 (0-0.2); Basophils % 0.8 % (0.1-2.0); Eosinophils # 0.7 K/mm3 (0.0-0.4); Hematocrit 43.9 % (42.0-52.0); Hemoglobin 14.2 g/dL (14.1-18.0); Lymphocytes # 1.7 K/mm3 (0.7-4.5); Lymphocytes % 19.4 % (10-50); Mean Corpuscular HGB Conc 32.4 g/dL (31.8-35.4); Mean Corpuscular Volume 95.5 fl (80-94); Monocytes # 0.5 K/mm3 (0.1-1.0); Monocytes % 5.9 % (1.7-9.3); Neutrophils # 5.8 K/mm3 (1.8-7.8); Neutrophils % 65.9 % (37.0-80.0); Platelet Count 275 K/mm3 (142-424); Red Cell Distribution Width 14.1 % (11.5-17.5); White Blood Count 8.8 K/mm3 (4.8-10.8)
[2022-07-09 16:41] LABS: Chloride 108 mmol/L (98-107); Potassium 4.4 mmoL/L (3.5-5.1); Sodium 140 mmol/L (136-145)
[2022-07-09 16:43] LABS: Alanine Aminotransferase 34 U/L (12-78); Aspartate Amino Transferase 43 U/L (17-59); Blood Urea Nitrogen 27 mg/dl (9-20); Creatinine Clearance Estimated 30 mL/min (50-200); Estimated Glomerular Filt Rate 29 ml/min (>60); GFR (African American) 35 ML/MIN (>60)
[2022-07-09 16:44] LABS: Albumin Level 3.8 g/dl (3.5-5.0); Albumin/Globulin Ratio 1.2 (1.1-1.8); Alkaline Phosphatase 99 U/L (38-126); Anion Gap 12.4 mEq/L (5-15); Bilirubin,Total 0.7 mg/dl (0.2-1.3); Calcium 8.8 mg/dl (8.4-10.2); Carbon Dioxide 24 mmol/L (22.0-30.0); Globulin 3.2 g/dL (1.3-3.2); Glucose 99 mg/dl (74-100); Magnesium 2.1 mg/dl (1.6-2.3)
--- NOTE | 2022-07-09 16:44 | PC.NURSE ---
rounded on pt no complaints at this time, visitor at bedside
[2022-07-09 16:54] LABS: NT Pro Brain Natriuretic Pep. 97.6 pg/mL (0-450)
[2022-07-09 16:58] LABS: Troponin I < 0.01 ng/ml (0.00-0.034)
[2022-07-09 17:03] LABS: Coronavirus 19, PCR Not Detected (NotDetected); Influenza A, PCR Not Detected (NotDetected); Influenza B, PCR Not Detected (NotDetected)
--- NOTE | 2022-07-09 17:14 | PC.NURSE ---
rounded on pt, no needs at this time
[2022-07-09 17:15] LABS: Thyroid Stimulating Hormone 4.26 uIU/mL (0.465-4.68)
--- NOTE | 2022-07-09 17:41 | PC.NURSE ---
rounded on pt no complaints at this time, visitor at bedside
--- NOTE | 2022-07-09 18:07 | PC.NURSE ---
pt ambulatory to restroom with assistance of cane; no complications
[2022-07-09 19:09] LABS: Appearance,Urine Clear (Clear); Color,Urine Yellow (Yellow); Microscopic, Urine URINE MICROSCOPIC (MICROSCOPIC); PH,Urine 5.5 (5.0-8.5); Protein,Urine Negative (Negative)
[2022-07-09 19:10] LABS: Bilirubin,Urine Negative (Negative); Blood, Urine Negative (Negative); Glucose,Urine (UA) Negative (Negative); Ketones,Urine Negative (Negative); Leukocyte Esterase,Urine Negative (Negative); Nitrate,Urine Negative (Negative)
[2022-07-09 19:11] LABS: WBC,Urine Occasional #/hpf (0-3)
== END 2022-07-09 19:54 | disposition home or self-care (01) ==
LOC: UTC 15:29 → ER 16:09
PROVIDERS: Emergency Medicine; Emergency Provider Nurse Practitioner; PCP Emergency Medicine
DX: R53.1 Weakness (principal); R53.83 Other fatigue; R42 Dizziness and giddiness; R06.02 Shortness of breath
CPT/HCPCS: 71045; 80053; 81001; 83735; 83880; 84443; 84484; 85025; 87635; 87636; 93005; 99284; 99285; C9803; U0003; U0005

== ENCOUNTER 2022-09-07 14:00 | Outpatient (RCR) | payer MEDICARE, OTHER, SELFPAY ==
--- NOTE | 2022-05-23 16:46 | HMH.PTOPEV ---
PT Outpatient Evaluation Rehab PT Outpatient Evaluation Start: 05/23/22 16:22 Freq: Status: Active Protocol: Document 05/23/22 16:23 ELZBIETA (Rec: 05/23/22 16:46 ELZBIETA [id number]) E-signed By Serafin Glynn, PT Outpatient Therapy Subjective History Subjective History Patient is a 81 year old male presenting to outpatient PT with reports of generalized unsteadyness of BLE. Patient referred with diagnosis of ataxia,chronic myelopathy, imbalance, disease of spinal cord and abnormalities of gait and mobility. MMT BUE normal . MMT down to hip normal. Below knee and foot ankle mm 2 +/5 grossly. Comorbidities include hx of seizures, stent x 8, HTN and HL. Chief Complaint Weakness,Decreased Coordination Prior Functional Limitations None,Housework,Driving, Standing,Walking,Stairs, Balance Current Functional Limitations Housework,Driving,Standing, Walking,Stairs,Balance Shoulder/Elbow Eval Shoulder Objective Measurements Shoulder ROM Bilateral full ROM shoulder exam standard bilateral Shoulder MMT Shoulder Strength Reason Not Measured WFL Elbow Objective Measurements Elbow ROM Bilateral full ROM elbow exam standard bilateral Elbow MMT Elbow/Forearm Strength Reason Not WFL Measured Balance Eval Subjective Hx of Complaint Comment Difficulty with all standing/ ambulatory activities. Prior Functional Limitations Prior Functional Howard Level Difficulty with all standing/ ambulatory activities. Current Functional Limitations Comment Difficulty with all standing/ ambulatory activities. Hx of Falls Hx Falls Yes Timed Up and Go Test 1. Is the Timed Up and Go test result > yes or = to 12 seconds? [place] Feet Together/Eyes open/Stable Surface pass Feet Together/Eyes Closed/Stable Surface fail Feet Together/Eyes open/Unstable Surface fail Feet Together/Eyes Closed/Unstable fail Surface Dynamic Gait Index Test Protocol Gait Level Surface Mild Impairment Query Text: Instructions: Walk at your normal speed from here to the next daphne (20'). Grading: Daphne the lowest category that applies. Change in Gait Speed Mild Im
--- NOTE | 2022-06-26 10:47 | HMH.RHREAS ---
Rehab Reassessment Rehab OP Re-assessment Start: 06/26/22 10:35 Freq: Status: Active Protocol: Document 06/22/22 14:00 ELZBIETA (Rec: 06/26/22 10:43 ELZBIETA [id number]) E-signed By Serafin Glynn, PT Rehab Re-assessment Subjective Subjective Patient reports 30 % improvement with BLE strength, endurance and balance. Objective Objective Notes BLE pain: 0/10 BLE MMT: 4/5 grossly DGI: 24 +for fall risk Assessment Progress Assessment Progressing as Expected Assessment Notes Patient continues to have difficulty with BLE stength/ endurance and balance. CGA with all standing/ambulatory activities. Patient would benfefit from continuing with skilled PT services in order to address functional limitations with all standing/ ambulatory activities. Patient goals met STG's Goals Not Met LTG's Revised Goals NA Plan Plan continue with current POC. Intro BUE strength/ conditioning. Frequency of Therapy 2x/week Duration of therapy 4 weeks Time and Billing Re-Eval Time 16 Re-Eval Billing Units 1 PHYSICIAN CERTIFICATION: I certify the specified therapy services for Kalia Magdaleno are required, authorized, and reviewed every 30 days.
--- NOTE | 2022-07-20 14:23 | HMH.RHREAS ---
Rehab Reassessment Rehab OP Re-assessment Start: 06/26/22 10:35 Freq: Status: Active Protocol: Document 07/20/22 14:12 ELZBIETA (Rec: 07/20/22 14:23 ELZBIETA [id number]) E-signed By Serafin Glynn, PT Rehab Re-assessment Subjective Subjective Patient reports [id number] % improvement with BLE strength, endurance and balance. [ End ] Objective Objective Notes BLE pain: 0/10 BLE MMT: 4/5 grossly DGI: 1824 +for fall risk [ End ] Assessment Progress Assessment Progressing as Expected Assessment Notes Patient continues to have difficulty with BLE stength/ endurance and balance. CGA with all standing/ambulatory activities. Patient would benfefit from continuing with skilled PT services in order to address functional limitations with all standing/ ambulatory activities. Patient goals met STG's [ End ] Goals Not Met LTG's Revised Goals NA Plan Plan Continue with current POC. Frequency of Therapy 2x/week Duration of therapy 4 weeks Time and Billing Re-Eval Time 15 Re-Eval Billing Units 1 PHYSICIAN CERTIFICATION: I certify the specified therapy services for Kalia Magdaleno are required, authorized, and reviewed every 30 days.
--- NOTE | 2022-08-20 16:22 | HMH.RHREAS ---
Rehab Reassessment Rehab OP Re-assessment Start: 06/26/22 10:35 Freq: Status: Active Protocol: Document 08/20/22 16:13 EVGENYLayneYUMIKO (Rec: 08/20/22 16:22 PHORYUMIKO [id number]) E-signed By Abhilash Norton, PT Rehab Re-assessment Subjective Subjective Pt reports, I used to have to rest between every exercise, but now I can pretty much go through all of them without stopping. He reports ~ 50% improvement since his initial eval. Objective Objective Notes BLE pain: 0/10 BLE MMT: 45 grossly DGI: +for fall risk Assessment Progress Assessment Progressing as Expected Assessment Notes Pt has shown significant improvements in balance and endurance to standing activities. He continues to have difficulty with dynamic gait activities, especially stairs. He continues to need skilled intervention to return to prior level of function. Patient goals met STG's Goals Not Met LTG's Revised Goals NA Plan Plan Continue with current POC. Frequency of Therapy 2x/week Duration of therapy 4 weeks Time and Billing Re-Eval Time 14 Re-Eval Billing Units 1 PHYSICIAN CERTIFICATION: I certify the specified therapy services for Kalia Magdaleno are required, authorized, and reviewed every 30 days.
== END 2022-09-07 14:05 | disposition home or self-care (01) ==
LOC: PT 14:00
PROVIDERS: PCP Emergency Medicine; Visit Provider Nurse Practitioner Family
DX: R26.89 Other abnormalities of gait and mobility (principal); G95.9 Disease of spinal cord, unspecified
CPT/HCPCS: 97110; 97116; 97163; 97164; 97530

== ENCOUNTER 2022-09-14 14:00 | Outpatient (RCR) | payer MEDICARE, OTHER, SELFPAY ==
--- NOTE | 2022-08-10 14:48 | HMH.OTOPEV ---
OT Inpatient Evaluation Rehab OT Outpatient Eval Start: 08/10/22 14:39 Freq: Status: Active Protocol: Document 08/10/22 14:39 RMAUNG (Rec: 08/10/22 14:48 [facility] [id number]) E-signed By Kitty Milan, OT Outpatient Therapy Subjective History Subjective History Pt is an 82 year male who reports to therapy for initial evaluation for fine motor. Pt is right hand dominant and recently started experiencing a tremor in RUE ~6-8 months ago. Since then, he complains of numbness and weakness in right hand. He also explains difficulty with fine motor tasks such as buttoning shirts , etc. He is also currently receiving oupatient PT due to balance issues from neuropathy . Pt does demonstrates with a slight decline in RUE with rn psych strength, fine motor, and overall MMT. Pt will continue to be seen in orde to address all these deficits. Current R hand 9 hole peg test : 42 seconds Current L hand 9 hole peg test : 38 seconds STG R hand 9 hole peg test: 38 seconds LTG R hand 9 hole peg test: 35 seconds R hand rn psych strength ST lbs R hand rn psych strength LTlbs Chief Complaint Weakness,Decreased Lining Cutter Strength Symptom Type Numbness Symptoms Aggravated By Physical Activity,Lifting Prior Functional Limitations None Current Functional Limitations Lifting,Housework,Dressing, Recreation Activity Symptom Description Constant but Variable Level of pain today (0-10) 0 Pain scale - at its best (0-10) 0 Pain scale - at its worst (0-10) 0 Shoulder/Elbow Eval Shoulder Objective Measurements Shoulder MMT Right Shoulder Abduction Strength Grade 3+ Fair+ Shoulder Flexion Strength Grade 3+ Fair+ Shoulder External Rotation Strength 3+ Fair+ Grade Shoulder Internal Rotation Strength 3+ Fair+ Grade
== END 2022-09-14 14:05 | disposition home or self-care (01) ==
LOC: OT 14:00
PROVIDERS: PCP Emergency Medicine; Visit Provider Specialist
DX: F82 Specific developmental disorder of motor function (principal); R25.1 Tremor, unspecified
CPT/HCPCS: 97110; 97164; 97166; 97530

== ENCOUNTER → 2022-10-05 10:42 | Outpatient (CLI) | payer MEDICARE, OTHER, SELFPAY | PROVIDERS: PCP Emergency Medicine; Visit Provider Specialist | DX: G40.209 Localization-related (focal) (partial) symptomatic epilepsy and epileptic syndromes with complex partial seizures, not intractable, without status epilepticus (principal) ==

== ENCOUNTER → 2022-10-09 09:44 | Outpatient (CLI) | payer MEDICARE, OTHER, SELFPAY | PROVIDERS: PCP Emergency Medicine; Visit Provider Specialist | DX: G40.209 Localization-related (focal) (partial) symptomatic epilepsy and epileptic syndromes with complex partial seizures, not intractable, without status epilepticus (principal) | CPT/HCPCS: 95819 ==

== ENCOUNTER → 2022-10-18 11:44 | Outpatient (CLI) | payer MEDICARE, OTHER, SELFPAY ==
[2022-10-18 13:04] LABS: Anion Gap 12.9 mEq/L (5-15); Blood Urea Nitrogen 20 mg/dl (9-20); Calcium 9.1 mg/dl (8.4-10.2); Carbon Dioxide 30 mmol/L (22.0-30.0); Chloride 104 mmol/L (98-107); Estimated Glomerular Filt Rate 36 ml/min (>60); GFR (African American) 44 ML/MIN (>60); Glucose 93 mg/dl (74-100); Potassium 4.9 mmoL/L (3.5-5.1); Sodium 142 mmol/L (136-145)
[2022-10-22 19:41] LABS: Lamotrigine (Lamictal) 8.1 ug/mL (2.0-20.0)
== END ==
PROVIDERS: PCP Emergency Medicine; Visit Provider Specialist
DX: G40.209 Localization-related (focal) (partial) symptomatic epilepsy and epileptic syndromes with complex partial seizures, not intractable, without status epilepticus (principal)
CPT/HCPCS: 36415; 80048; 80168

== ENCOUNTER → 2022-10-23 10:52 | Outpatient (CLI) | payer MEDICARE, OTHER, SELFPAY | PROVIDERS: PCP Emergency Medicine; Visit Provider Specialist | DX: G40.89 Other seizures (principal) ==

== ENCOUNTER → 2022-11-02 10:55 | Outpatient (CLI) | payer MEDICARE, OTHER, SELFPAY ==
--- NOTE | 2022-11-02 10:56 | MR_ITS ---
FINAL REPORT CLINICAL HISTORY: f/u seizure 15ml prohance used COMPARISON: 05/26/2021 FINDINGS: Multiplanar MR imaging of the brain was performed without and with contrast. There is mild age-appropriate atrophy. Scattered foci of increased T2 signal are seen in the cerebral white matter that have a nonspecific appearance but likely represent mild chronic ischemic/gliotic changes. There is no evidence of intracranial hemorrhage or mass. No abnormal ventricular dilatation is identified. There is no evidence of shift of the midline structures. No abnormal extra-axial fluid collection is seen. No area of abnormal restricted diffusion is identified. The posterior fossa and brainstem have an unremarkable appearance. No abnormal contrast enhancement is seen. Normal major vessel vascular flow voids are seen. IMPRESSION: Mild atrophy and chronic ischemic/gliotic changes. No acute intracranial abnormality. Reviewed, Interpreted and Dictated by John Valdez III, MD Transcribed by Imelda Lopez Authenticated and [facility]
== END ==
PROVIDERS: PCP Emergency Medicine; Visit Provider Specialist
DX: G40.209 Localization-related (focal) (partial) symptomatic epilepsy and epileptic syndromes with complex partial seizures, not intractable, without status epilepticus (principal)
CPT/HCPCS: 70553

== ENCOUNTER → 2022-11-09 14:12 | Outpatient (CLI) | payer MEDICARE, OTHER, SELFPAY ==
[2022-11-09 16:12] LABS: Thyroid Stimulating Hormone 6.41 uIU/mL (0.465-4.68)
[2022-11-09 16:55] LABS: Folate 8.56 ng/mL; Vitamin B12 > 1000 pg/mL (239-931)
[2022-11-11 11:33] LABS: Rapid Plasma Reagin Ab Titer Non Reactive titer (NonRea<1:1)
[2022-11-12 13:52] LABS: Anti-Centromere B Antibodies <0.2 AI (0.0-0.9); Anti-DNA (DS) Ab Qn <1 IU/mL (0-9); Anti-Jo-1 <0.2 AI (0.0-0.9); Anti-Smith Antibody <0.2 AI (0.0-0.9); Antichromatin Antibodies <0.2 AI (0.0-0.9); Antiscleroderma-70 Antibodies <0.2 AI (0.0-0.9); RNP Antibodies 1.1 AI (0.0-0.9); Sjogren's Anti-SS-A <0.2 AI (0.0-0.9); Sjogren's Anti-SS-B <0.2 AI (0.0-0.9)
== END ==
PROVIDERS: PCP Emergency Medicine; Visit Provider Specialist
DX: G31.84 Mild cognitive impairment of uncertain or unknown etiology; G40.209 Localization-related (focal) (partial) symptomatic epilepsy and epileptic syndromes with complex partial seizures, not intractable, without status epilepticus; E78.2 Mixed hyperlipidemia; G47.33 Obstructive sleep apnea (adult) (pediatric)
CPT/HCPCS: 36415; 82607; 82746; 84443; 86225; 86235; 86593

== ENCOUNTER → 2022-11-22 10:03 | Outpatient (POV) | payer MEDICARE, OTHER, SELFPAY | PROVIDERS: Visit Provider Specialist/Technologist | DX: Z00.00 Encounter for general adult medical examination without abnormal findings (principal) ==

== ENCOUNTER 2022-12-16 19:14 | Emergency (ER) | payer MEDICARE, OTHER, SELFPAY ==
[2022-12-16 19:16] VITALS: BP 170/79; PULSE 62; RESP 16; TEMP 36.7; O2SAT 94; BMI 23.0
[2022-12-16 19:50] LABS: Basophils # 0.1 K/mm3 (0-0.2); Basophils % 0.6 % (0.1-2.0); Eosinophils # 0.4 K/mm3 (0.0-0.4); Eosinophils % 4.5 % (0.1-12.0); Hematocrit 46.2 % (42.0-52.0); Hemoglobin 15.8 g/dL (14.1-18.0); Lymphocytes # 1.3 K/mm3 (0.7-4.5); Lymphocytes % 13.3 % (10-50); Mean Corpuscular HGB Conc 34.2 g/dL (31.8-35.4); Mean Corpuscular Hemoglobin 33.1 pg (27.0-31.2); Mean Platelet Volume 8.1 fl (7.4-10.4); Monocytes # 0.4 K/mm3 (0.1-1.0); Monocytes % 4.4 % (1.7-9.3); Neutrophils # 7.3 K/mm3 (1.8-7.8); Neutrophils % 77.3 % (37.0-80.0); Platelet Count 232 K/mm3 (142-424); Red Blood Count 4.76 M/mm3 (4.60-6.20); White Blood Count 9.5 K/mm3 (4.8-10.8)
[2022-12-16 19:52] LABS: Chloride 107 mmol/L (98-107); Potassium 4.5 mmoL/L (3.5-5.1); Sodium 142 mmol/L (136-145)
[2022-12-16 19:54] LABS: Blood Urea Nitrogen 21 mg/dl (9-20); Creatinine Clearance Estimated 36 mL/min (50-200); Estimated Glomerular Filt Rate 36 ml/min (>60); GFR (African American) 44 ML/MIN (>60)
[2022-12-16 19:55] LABS: Alanine Aminotransferase 37 U/L (12-78); Albumin Level 4.6 g/dl (3.5-5.0); Albumin/Globulin Ratio 1.3 (1.1-1.8); Alkaline Phosphatase 107 U/L (38-126); Anion Gap 13.5 mEq/L (5-15); Aspartate Amino Transferase 39 U/L (17-59); Bilirubin,Total 0.8 mg/dl (0.2-1.3); Calcium 9.2 mg/dl (8.4-10.2); Carbon Dioxide 26 mmol/L (22.0-30.0); Globulin 3.6 g/dL (1.3-3.2); Glucose 112 mg/dl (74-100); Magnesium 1.9 mg/dl (1.6-2.3); Total Protein,Serum 8.2 g/dl (6.3-8.2)
--- NOTE | 2022-12-16 19:58 | ECG_ITS ---
APPROVED REPORT Exam: Resting ECG HR:62 bpm ECG Measurements Heart Rate 62 AXES DE 162 P 72 QRSd 96 QRS -62 QT 408 T 70 QTc 413 Conclusion SINUS RHYTHM WITH FREQUENT SUPRAVENTRICULAR PREMATURE COMPLEXES INDETERMINATE AXIS LEFT ANTERIOR FASCICULAR BLOCK [QRS AXIS <= -45, QR IN I, RS IN II] ABNORMAL ECG UNCONFIRMED REPORT Electronically signed by : Ferdinand Steven MD 12/17/2022 20:21:25
--- NOTE | 2022-12-16 20:26 | PC.NURSE ---
in room talking with patient at this time.
--- NOTE | 2022-12-16 20:30 | HMH.EDGENADL ---
Discharge Plan Disposition Patient Disposition: Home, Self-Care Prescriptions Prescriptions: No Action fluticasone propion-salmeterol [Advair Diskus] 100-50 mcg/dose blister with device 1 inh inhalation BID Qty: 90 3RF cholecalciferol (vitamin D3) 25 mcg (1,000 unit) capsule 25 mcg PO DAILY Patient Comments: TAKE ONE CAPSULE BY MOUTH EVERY DAY sildenafil (pulm.hypertension) 20 mg tablet 20 mg PO DIRECTED PRN (Reason: sexual activity) Qty: 40 2RF albuterol sulfate 90 mcg/actuation HFA aerosol inhaler 2 inh inhalation Q6H PRN (Reason: shortness of breath or wheezing) 90 Days Qty: 8.5 1RF gabapentin 300 mg capsule 300 mg PO HS Qty: 30 5RF lamotrigine 100 mg tablet 100 mg PO .COMPLEX Rx Instructions: 100 mg orally every am and 150 mg at hs; 100mg in am and 150 mg at hs aspirin [Adult Low Dose Aspirin] 81 mg tablet,delayed release (DR/EC) 81 mg PO DAILY brinzolamide [Azopt] 1 % drops,suspension 1 drp OP TID atorvastatin 40 mg tablet See Rx Instructions .ROUTE .COMPLEX Qty: 90 2RF Dose Instruction: TAKE ONE TABLET BY MOUTH EVERY DAY Rx Instructions: TAKE ONE TABLET BY MOUTH EVERY DAY paroxetine HCl 40 mg tablet See Rx Instructions .ROUTE .COMPLEX Qty: 90 0RF Dose Instruction: TAKE ONE TABLET BY MOUTH EVERY DAY Rx Instructions: TAKE ONE TABLET BY MOUTH EVERY DAY carvedilol 12.5 MG tablet 6.25 mg PO BID sacubitril-valsartan 24-26 mg tablet 0.5 tab PO BID Patient Comments: TAKE 1/2 TABLET BY MOUTH TWICE DAILY Referrals Follow up/Referrals: Tomy Witt MD [Primary Care Provider] - See instructions Activity Restrictions/Add. Instructions Additional Instructions/Restrictions: At this time it was felt you are safe to be discharged home. If new or worsening symptoms please do not hesitate to return the emergency department. Please continue to follow-up with your neurologist as discussed. Clinical Impressions Clinical Impression: Breakthrough seizure Discharge ED Provider: Fredy Nelson General Adult HPI General Chief complaint: Weakness Stated complaint: weakness Time Seen by Provider: 12/16/22 19:30 Mode of Arrival: Wheelchair Source of Information: Patient Limitations: No Limitations Description of Symptoms (Recalled from ER Triage Doc. by RN): pt states he had several episodes of seziures the last 3 days. pt is currently treating for seziures by dr Prtat for this and is on lamotrigine. pt c/o increasing weakness since these episodes History of Present Illness HPI narrative: Patient is a 82-year-old male with past medical history of hypertension, hyperlipidemia, CKD, neuropathy, seizures on lamotrigine followed by neurology who presents to the emergency department for evaluation of seizures. Patient has had seizures over the last 5 years and appears to have a complex phenotype where patient is awake, feels as if things are elevating followed by profound weakness. Patient is followed by Dr. Pratt here who has him on lamotrigine. Last seizure was last month. However over the last few days patient has had recurrent seizures consistent with his baseline. He has recently been on a trip, denies staying up later than usual, excessive alcohol intake. Patient is compliant with his medications. Mainly presents due to the weakness associated with these episodes. No other acute complaints at this time. Related Data Home Medications Medication Instructions Recorded Confirmed aspirin 81 mg tablet,delayed 81 mg PO DAILY Heart disease 03/19/17 12/16/22 release (Adult Low Dose Aspirin) brinzolamide 1 % eye 1 drp ophthalmic (eye) TID Glaucoma 03/19/17 12/16/22 drops,suspension (Azopt) carvedilol 12.5 mg tablet 6.25 mg PO BID Hypertension 09/08/21 12/16/22 sacubitril 24 mg-valsartan 26 mg 0.5 tab PO BID Heart failure 09/21/21 12/16/22 tablet cholecalciferol (vitamin D3) 25 25 mcg PO DAILY 07/26/22
[2022-12-16 20:35] VITALS: BP 152/81; PULSE 63; RESP 16; TEMP 36.7; O2SAT 94
== END 2022-12-16 20:38 | disposition home or self-care (01) ==
PROVIDERS: Emergency Provider Emergency Medicine; PCP Emergency Medicine
DX: G40.909 Epilepsy, unspecified, not intractable, without status epilepticus (principal); I49.8 Other specified cardiac arrhythmias; I12.9 Hypertensive chronic kidney disease with stage 1 through stage 4 chronic kidney disease, or unspecified chronic kidney disease; E78.5 Hyperlipidemia, unspecified; N18.9 Chronic kidney disease, unspecified
CPT/HCPCS: 80053; 83735; 85025; 93005; 99283

== ENCOUNTER → 2023-01-07 12:44 | Outpatient (CLI) | payer MEDICARE, OTHER, SELFPAY ==
[2023-01-07 13:55] LABS: Thyroid Stimulating Hormone 6.95 uIU/mL (0.465-4.68)
[2023-01-07 14:32] LABS: Free T4 (Free Thyroxine) 1.12 ng/dl (0.78-2.19)
[2023-01-10 11:15] LABS: Lamotrigine (Lamictal) 5.7 ug/mL (2.0-20.0)
== END ==
PROVIDERS: PCP Emergency Medicine; Visit Provider Specialist
DX: E78.2 Mixed hyperlipidemia (principal); G40.209 Localization-related (focal) (partial) symptomatic epilepsy and epileptic syndromes with complex partial seizures, not intractable, without status epilepticus
CPT/HCPCS: 36415; 80168; 84439; 84443

== ENCOUNTER → 2023-01-25 09:24 | Outpatient (CLI) | payer MEDICARE, OTHER, SELFPAY ==
[2023-01-25 20:07] LABS: Cocaine Screen,Urine Negative ng/ml (<300)
[2023-01-25 20:08] LABS: Methadone Screen,Urine Negative ng/ml (<300)
[2023-01-25 20:15] LABS: Amphetamine/Metha Screen,Urine Negative ng/ml (<1000); Barbiturates Screen,Urine Negative ng/ml (<200)
[2023-01-25 20:16] LABS: Benzodiazepines Screen,Urine Negative ng/ml (<200); Cannabinoid Screen,Urine Negative ng/ml (<50)
[2023-01-25 20:51] LABS: Opiate Screen,Urine Negative ng/ml (<300)
[2023-01-25 20:52] LABS: Phencyclidine Screen,Urine Negative ng/ml (<25)
== END ==
PROVIDERS: PCP Internal Medicine; Visit Provider Internal Medicine
DX: Z79.899 Other long term (current) drug therapy (principal)
CPT/HCPCS: 80305

== ENCOUNTER 2023-06-07 12:59 | Outpatient (CLI) | payer MEDICARE, OTHER, SELFPAY ==
[2023-06-07 13:45] VITALS: PULSE 51
[2023-06-07] MEDS: ALBUTEROL 0.083% 2.5 MG/3 ML NEB IH (13:45)
--- NOTE | 2023-06-07 13:57 | PC.NURSE ---
PT UNABLE TO DO 6MWT. STATED HE DOES NOT WALK VERY GOOD.
== END 2023-06-07 23:59 | disposition home or self-care (01) ==
PROVIDERS: PCP Physician Assistant; Visit Provider Internal Medicine Pulmonary Disease
DX: R06.09 Other forms of dyspnea (principal)
CPT/HCPCS: 94060; 94640; 94726; 94729

== ENCOUNTER 2023-06-12 15:23 | Outpatient (CLI) | payer MEDICARE, OTHER, SELFPAY ==
[2023-06-12 15:33] LABS: Microscopic, Urine URINE MICROSCOPIC (MICROSCOPIC)
[2023-06-12 16:20] LABS: Basophils # 0.1 K/mm3 (0-0.2); Basophils % 1.3 % (0.1-2.0); Eosinophils # 0.5 K/mm3 (0.0-0.4); Eosinophils % 8.6 % (0.1-12.0); Hematocrit 45.9 % (42.0-52.0); Hemoglobin 14.7 g/dL (14.1-18.0); Lymphocytes # 1.4 K/mm3 (0.7-4.5); Lymphocytes % 22.9 % (10-50); Mean Corpuscular Hemoglobin 32.2 pg (27.0-31.2); Mean Corpuscular Volume 100.5 fl (80-94); Mean Platelet Volume 7.8 fl (7.4-10.4); Monocytes # 0.5 K/mm3 (0.1-1.0); Monocytes % 7.7 % (1.7-9.3); Neutrophils # 3.5 K/mm3 (1.8-7.8); Neutrophils % 59.4 % (37.0-80.0); Platelet Count 229 K/mm3 (142-424); Red Blood Count 4.57 M/mm3 (4.60-6.20); Red Cell Distribution Width 14.1 % (11.5-17.5); White Blood Count 5.9 K/mm3 (4.8-10.8)
[2023-06-12 16:26] LABS: Appearance,Urine CLEAR (Clear); Bilirubin,Urine Negative (Negative); Blood, Urine Negative (Negative); Color,Urine YELLOW (Yellow); Glucose,Urine (UA) Negative (Negative); Ketones,Urine Negative (Negative); Leukocyte Esterase,Urine Negative (Negative); Nitrate,Urine Negative (Negative); Protein,Urine Negative (Negative); Specific Gravity, Urine 1.015 (1.005-1.030); Urobilinogen,Urine 0.2 EU/dl (0.2)
[2023-06-12 16:47] LABS: Creatinine,Urine Random 88 mg/dL (Not Estab.)
[2023-06-12 17:14] LABS: RBC,Urine Occasional #/hpf (0-3); Squamous Epithelial Cell,Urine Occasional #/hpf (0-5)
[2023-06-12 17:28] LABS: Albumin Level 3.9 g/dl (3.5-5.0); Anion Gap 15.5 mEq/L (5-15); Blood Urea Nitrogen 24 mg/dl (9-20); Calcium 9.2 mg/dl (8.4-10.2); Carbon Dioxide 23 mmol/L (22.0-30.0); Chloride 107 mmol/L (98-107); Estimated Glomerular Filt Rate 34 ml/min (>60); GFR (African American) 41 ML/MIN (>60); Glucose 97 mg/dl (74-100); Phosphorous 4.2 mg/dl (2.5-4.5); Potassium 4.5 mmoL/L (3.5-5.1); Sodium 141 mmol/L (136-145)
[2023-06-12 17:39] LABS: Intact Parathyroid Hormone 51.7 pg/mL (7.5-53.5)
[2023-06-12 18:44] LABS: 25-OH Vitamin D, Total 46.8 ng/mL (30-100)
== END 2023-06-12 23:59 | disposition home or self-care (01) ==
LOC: LAB 15:24
PROVIDERS: PCP Physician Assistant; Visit Provider Internal Medicine Nephrology
DX: N18.32 Chronic kidney disease, stage 3b (principal); Z79.899 Other long term (current) drug therapy
CPT/HCPCS: 36415; 80069; 81001; 82306; 82570; 83970; 84156; 85025

== ENCOUNTER 2023-07-25 18:00 | Outpatient (CLI) | payer MEDICARE, OTHER, SELFPAY ==
[2023-07-25 18:13] LABS: Basophils # 0.1 K/mm3 (0-0.2); Eosinophils # 0.6 K/mm3 (0.0-0.4); Eosinophils % 6.4 % (0.1-12.0); Hematocrit 46.6 % (42.0-52.0); Hemoglobin 14.6 g/dL (14.1-18.0); Lymphocytes # 1.2 K/mm3 (0.7-4.5); Lymphocytes % 13.8 % (10-50); Mean Corpuscular HGB Conc 31.2 g/dL (31.8-35.4); Mean Corpuscular Hemoglobin 31.6 pg (27.0-31.2); Mean Corpuscular Volume 101.1 fl (80-94); Mean Platelet Volume 9.4 fl (7.4-10.4); Monocytes # 0.5 K/mm3 (0.1-1.0); Monocytes % 5.4 % (1.7-9.3); Neutrophils # 6.4 K/mm3 (1.8-7.8); Neutrophils % 73.3 % (37.0-80.0); Platelet Count 275 K/mm3 (142-424); Red Blood Count 4.61 M/mm3 (4.60-6.20); Red Cell Distribution Width 14.3 % (11.5-17.5); White Blood Count 8.7 K/mm3 (4.8-10.8)
[2023-07-25 18:44] LABS: Alanine Aminotransferase 21 U/L (12-78); Albumin Level 3.9 g/dl (3.5-5.0); Albumin/Globulin Ratio 1.2 (1.1-1.8); Alkaline Phosphatase 108 U/L (38-126); Anion Gap 14.5 mEq/L (5-15); Aspartate Amino Transferase 28 U/L (17-59); Bilirubin,Total 0.6 mg/dl (0.2-1.3); Blood Urea Nitrogen 24 mg/dl (9-20); Calcium 9.2 mg/dl (8.4-10.2); Carbon Dioxide 26 mmol/L (22.0-30.0); Chloride 104 mmol/L (98-107); Cholesterol 135 mg/dl (140-200); Estimated Glomerular Filt Rate 30 ml/min (>60); GFR (African American) 37 ML/MIN (>60); Globulin 3.2 g/dL (1.3-3.2); Glucose 90 mg/dl (74-100); HDL Cholesterol 45 mg/dl (40-60); Potassium 4.5 mmoL/L (3.5-5.1); Sodium 140 mmol/L (136-145); Total Protein,Serum 7.1 g/dl (6.3-8.2); Triglycerides 79 mg/dl (30-150); VLDL Cholesterol 16 mg/dL (0-40)
[2023-07-25 18:56] LABS: Direct LDL Cholesterol 71.66 mg/dL (100-129)
[2023-07-25 19:05] LABS: 25-OH Vitamin D, Total 48.5 ng/mL (30-100)
[2023-07-25 19:16] LABS: Prostate Specific Ag Screen 1.2 ng/ml (0.0-4.0); Thyroid Stimulating Hormone 4.88 uIU/mL (0.465-4.68)
[2023-07-29 18:07] LABS: Lamotrigine (Lamictal) 8.7 ug/mL (2.0-20.0)
== END 2023-07-25 23:59 | disposition home or self-care (01) ==
LOC: LAB.DROPOF 07-26 07:40
PROVIDERS: PCP Physician Assistant; Visit Provider Physician Assistant
DX: E55.9 Vitamin D deficiency, unspecified (principal); E03.9 Hypothyroidism, unspecified; E78.5 Hyperlipidemia, unspecified; R53.83 Other fatigue; Z12.5 Encounter for screening for malignant neoplasm of prostate; Z68.23 Body mass index [BMI] 23.0-23.9, adult
CPT/HCPCS: 80053; 80061; 80168; 82306; 84443; 85025; G0103

== ENCOUNTER 2023-08-11 18:02 | Emergency (ER) | payer MEDICARE, OTHER, SELFPAY ==
[2023-08-11 18:03] VITALS: BP 132/59; PULSE 70; RESP 13; TEMP 36.6; O2SAT 94; BMI 23.0
--- NOTE | 2023-08-11 18:05 | ED_ITS ---
<Statement entered by Pascale Rodriguez DO - 08/11/23 23:27> I was consulted by the JORY, and we discussed the complexity of the problems being addressed. I approved the treatment and management plan for this patient's care in the emergency department, thus performing a substantive portion of the medical decision making. Pascale Rodriguez DO Discharge Plan Disposition Patient Disposition: Home, Self-Care Condition: Good Prescriptions Prescriptions: No Action cholecalciferol (vitamin D3) 25 mcg (1,000 unit) capsule 25 mcg PO DAILY Patient Comments: TAKE ONE CAPSULE BY MOUTH EVERY DAY sildenafil (pulm.hypertension) 20 mg tablet 20 mg PO DIRECTED PRN (Reason: sexual activity) Qty: 40 2RF albuterol sulfate 90 mcg/actuation HFA aerosol inhaler 2 inh inhalation Q6H PRN (Reason: shortness of breath or wheezing) 90 Days Qty: 8.5 1RF fluticasone propion-salmeterol [Advair Diskus] 100-50 mcg/dose blister with device See Rx Instructions .ROUTE .COMPLEX Qty: 180 3RF Dose Instruction: INHALE 1 PUFF BY MOUTH TWICE DAILY --RINSE MOUTH AFTER USE-- Rx Instructions: INHALE 1 PUFF BY MOUTH TWICE DAILY --RINSE MOUTH AFTER USE-- ondansetron 4 mg tablet,disintegrating 4 mg PO Q8H PRN (Reason: nausea and vomiting) 5 Days Qty: 14 0RF aspirin [Adult Low Dose Aspirin] 81 mg tablet,delayed release (DR/EC) 81 mg PO DAILY dorzolamide-timolol [Cosopt] 22.3-6.8 mg/mL drops 1 drp ophthalmic (eye) BID lamotrigine 100 mg tablet 150 mg PO BID Qty: 270 3RF donepezil [Aricept] 5 mg tablet 5 mg PO DAILY Qty: 30 2RF paroxetine HCl 40 mg tablet See Rx Instructions .ROUTE .COMPLEX Qty: 90 0RF Dose Instruction: TAKE ONE TABLET BY MOUTH EVERY DAY Rx Instructions: TAKE ONE TABLET BY MOUTH EVERY DAY atorvastatin 40 mg tablet See Rx Instructions .ROUTE .COMPLEX Qty: 90 2RF Dose Instruction: TAKE ONE TABLET BY MOUTH EVERY DAY Rx Instructions: TAKE ONE TABLET BY MOUTH EVERY DAY carvedilol 12.5 MG tablet 6.25 mg PO BID sacubitril-valsartan 24-26 mg tablet 0.5 tab PO BID Patient Comments: TAKE 1/2 TABLET BY MOUTH TWICE DAILY Referrals Follow up/Referrals: Hattie Dorman PA [Primary Care Provider] - See instructions Activity Restrictions/Add. Instructions Additional Instructions/Restrictions: Please follow-up with your PCP regarding your C-spine images. You have been diagnosed with a T12 fracture that is likely old. Clinical Impressions Clinical Impression: Abdominal pain Qualifiers: Abdominal location: generalized Qualified Code(s): R10.84 - Generalized abdominal pain Closed T12 fracture Qualifiers: Encounter type: initial encounter Fracture morphology: unspecified fracture morphology Qualified Code(s): S22.089A - Unspecified fracture of T11-T12 vertebra, initial encounter for closed fracture Instructions Patient Instructions: DI for Abdominal Pain-Adult Discharge ED Provider: Pascale Rodriguez General Adult HPI General Chief complaint: Nausea/Vomiting/Diarrhea Stated complaint: N/V,weakness Time Seen by Provider: 08/11/23 18:05 History of Present Illness HPI narrative: Patient presents for evaluation of nausea vomiting diarrhea and abdominal pain. Patient states that he has had several days of nausea but now vomiting and diarrhea started. He denies chest pain fever chills hemoptysis hematochezia melena. Related Data Home Medications Medication Instructions Recorded Confirmed aspirin 81 mg tablet,delayed 81 mg PO DAILY Heart disease 03/19/17 08/07/23 release (Adult Low Dose Aspirin) carvedilol 12.5 mg tablet 6.25 mg PO BID Hypertension 09/08/21 08/07/23 sacubitril 24 mg-valsartan 26 mg 0.5 tab PO BID Heart failure 09/21/21 08/07/23 tablet cholecalciferol (vitamin D3) 25 25 mcg PO DAILY 07/26/22 08/07/23 mcg (1,000 unit) capsule dorzolamide 22.3 mg-timolol 6.8 1 drp ophthalmic (eye) BID 04/03/23 08/07/23 mg/mL eye drops (Cosopt) Previous Rx's Medication Instructions Recorded sildenafil (pulm.hypertension) 20 20 mg PO DIRECTED PRN sexual 02/06/22 mg tablet activity #40 tabs albuterol sulfate 90 mcg/actuation 2 inh inhalation Q6H PRN shortness 08/03/22 aerosol inhaler of breath or wheezing 90 days #8.5 grams lamotrigine 100 mg tablet 150 mg (1.5 x 100 mg) PO BID 04/03/23 Complex partial seizure #270 tabs paroxetine HCl 40 mg tablet See Rx Instructions .Route 06/05/23 .COMPLEX #90 tabs fluticasone 100 mcg-salmeterol 50 See Rx Instructions .Route 07/04/23 mcg/dose blistr powdr for .COMPLEX #180 blisters inhalation (Advair Diskus) atorvastatin 40 mg tablet See Rx Instructions .Route 07/22/23 .COMPLEX #90 tabs donepezil 5 mg tablet (Aricept) 5 mg PO DAILY #30 tabs 07/25/23 ondansetron 4 mg disintegrating 4 mg PO Q8H PRN nausea and 08/07/23 tablet vomiting 5 days #14 tabs Allergies Allergy/AdvReac Type Severity Reaction Status Date / Time levetiracetam [From [facility]] AdvReac Severe anger, Verified 08/07/23 09:19 depression, gait disturbance PFSH [facility] Disclaimer: The information contained in this section may have been updated after the patient was seen, as this information can be updated by other users. Medical History Tinnitus of right ear Sensorineural hearing loss (SNHL) of both ears Mild to Severe Hearing loss Bilateral hearing aids Tinnitus Restrictive lung disease History of 2019 novel coronavirus disease (COVID-19) Asthma-COPD overlap syndrome Abnormal PFT Moderate persistent asthma ILD (interstitial lung disease) Centrilobular emphysema Dyspnea on exertion LAURA on CPAP Stable Bradycardia Surgical History History of cardiac cath H/O cervical spine surgery Family History Other Coronary artery disease Hypertension Social History Smoking Status: Never smoker alcohol intake: never counseling provided: none substance use type: denies use current occupational status: retired Travel in the last 8 weeks: None household members: spouse housing: house caffeine: Yes ROS Obtained: Yes Systems reviewed as appropriate & no additional complaints except as documented Physical Exam General General appearance: alert and in no apparent distress Chest Chest inspection: Present normal inspection and symmetric chest wall rise Respiratory Respiratory exam: Present normal lung sounds bilaterally Cardiovascular Cardiovascular exam: Present regular rate, normal rhythm and normal heart sounds Abdominal Exam Abdominal exam: Present soft, tenderness (Mild diffuse abdominal tenderness) and hyperactive bowel sounds Back Exam Back exam: Present normal inspection and full ROM; Absent tenderness Neurological Exam Neurological exam: Present alert Medical Decision Making Medical Records Medical records reviewed: Yes I reviewed the patient's medical records. Demond Inquiry Pt receiving controlled substance: No Vital Signs: 08/11/23 18:03 08/11/23 23:17 Temperature 97.9 F 97.9 F Temperature Source Oral Pulse Rate 66 Pulse Rate [Left Radial] 70 Respiratory Rate 13 16 Blood Pressure 127/61 Blood Pressure [Right Arm] 132/59 L Blood Pressure Mean [Right Arm] 83 02 Sat by Pulse Oximetry 94 L Oxygen Delivery Method Room Air Lab Data Lab results reviewed: Yes I reviewed the patient's lab results. Lab Results 08/11/23 18:19: WBC 9.1, RBC 4.76, Hgb 14.8, Hct 47.4, MCV 99.7 H, MCH 31.1, M CHC 31.2 L, RDW 14.4, Plt Count 246, MPV 7.9, Neut % (Auto) 70.7, Lymph % (Auto) 18.3, Mason % (Auto) 4.9, Eos % (Auto) 5.1, Baso % (Auto) 1.0, Neut # (Auto) 6.4, Lymph # (Auto) 1.7, Mason # (Auto) 0.4, Eos # (Auto) 0.5 H, Baso # (Auto) 0.1, Sodium 142, Potassium 4.2, Chloride 105, Carbon Dioxide 27, Anion Gap 14.2, BUN 20, Creatinine 2.00 H, Estimated Creat Clear 32, Estimated GFR 32 L, Est GFR ( Amer) 39 L, Glucose 108 H, Calcium 10.3 H, Magnesium 1.8, Total Bilirubin 0.7, AST 34, ALT 31, Alkaline Phosphatase 92, Troponin I 0.01, Total Protein 7.5, Albumin 4.0, Globulin 3.5 H, Albumin/Globulin Ratio 1.1, Lipase 105 08/11/23 20:09: Urine Color Yellow, Urine Appearance Clear, Urine pH 6.0, Ur Specific [place] 1.010, Urine Protein Negative, Urine Glucose (UA) Negative, Urine Ketones Negative, Urine Blood Trace-l, Urine Nitrate Negative, Urine Bilirubin 1+ A, Urine Urobilinogen 1.0, Ur Leukocyte Esterase Negative, Urine RBC None, Urine WBC Occasional, Ur Squamous Epith Cells Occasional, Urine Bacteria None 08/11/23 18:19 08/11/23 18:19 Orders (Tests/Meds): ED MEDICATIONS Discontinued Medications Generic Name Dose Route Start Last Admin Trade Name Freq PRN Reason Stop Dose Admin Acetaminophen 1,000 mg 08/11/23 18:17 08/11/23 18:33 Acetaminophen 1,000mg/100ml Vial IV 08/11/23 18:18 1,000 mg ONCE ONE Administration Lactated Ringer's 1,000 mls @ 999 mls/hr 08/11/23 18:17 08/11/23 18:33 Lactated Ringer's 1000 Ml Bag IV 08/11/23 19:17 999 mls/hr .Q1H1M ONE Administration Iopamidol 75 ml 08/11/23 19:20 08/11/23 19:20 Iopamidol-370 (76%);100ml Bottle IV 08/11/23 19:21 75 ml ONCE ONE Administration Ketorolac Tromethamine 15 mg 08/11/23 18:17 08/11/23 18:31 Ketorolac 30mg/Ml Vial IV 08/11/23 18:18 15 mg ONCE ONE Administration Ondansetron HCl 4 mg 08/11/23 18:17 08/11/23 18:31 Ondansetron 4mg/2ml Vial IV 08/11/23 18:18 4 mg ONCE ONE Administration ORDERS Category Date Time Status CT abdomen pelvis w con Stat Cat Scan 08/11/23 18:19 Completed CBC w/Auto Diff [Complete Blood Count Auto Diff] Stat Lab 08/11/23 18:19 Completed CMP [Comprehensive Metabolic Panel] Stat Lab 08/11/23 18:19 Completed Lactic Acid Stat Lab 08/11/23 18:17 Ordered Lipase Stat Lab 08/11/23 18:19 Completed Magnesium Stat Lab 08/11/23 18:19 Completed Trop I [Troponin I] Stat Lab 08/11/23 18:19 Completed Troponin I Q3H Lab 08/11/23 21:30 Ordered UA [Urinalysis and Microscopic] Stat Lab 08/11/23 20:09 Completed Medical Decision Narrative: In summary patient is a 83-year-old male who presents to the emergency department for evaluation of nausea vomiting diarrhea. Patient is dynamically stable upon arrival, afebrile. Physical exam is remarkable for diffuse abdominal tenderness and hyperactive bowel sounds patient has dementia at baseline so do not know how accurate historian he is however patient states he has not had a bowel movement in several days.. Differential diagnosis includes gastroenteritis versus bowel obstruction. Initial workup will be conducted with hematologic labs CT scan abdomen pelvis urinalysis. Initial interventions include fluid bolus Toradol Tylenol and antiemetics. Initial workup reviewed by me shows that his hematologic labs are nonactionable and his urinalysis is bland and my informal interpretation of his CT scan of the abdomen pelvis shows thickened bladder wall but no other acute processes. Radiology reads a age- indeterminate T12 compression fracture but patient is asymptomatic and has no back pain.. Upon repeat evaluation patient has had complete resolution of his constitutional symptoms. We have essentially ruled out any serious or life- threatening problems and patient is tolerating p.o. intake. And given this, patient is appropriate for discharge at this time with close follow-up with his PC Critical Care Critical Care Time Critical Care Time: No
--- NOTE | 2023-08-11 18:19 | CT_ITS ---
PROCEDURE INFORMATION: Exam: CT Abdomen And Pelvis With Contrast Exam date and time: 08/11/2023 7:08 PM Age: 83 years old Clinical indication: Nausea and vomiting; Additional info: Nausea vomiting weakness TECHNIQUE: Imaging protocol: Computed tomography of the abdomen and pelvis with contrast. Radiation optimization: All CT scans at this facility use at least one of these dose optimization techniques: automated exposure control; mA and/or kV adjustment per patient size (includes targeted exams where dose is matched to clinical indication); or iterative reconstruction. Contrast material: ISOVUE; Contrast volume: 75 ml; Contrast route: IV; COMPARISON: MR ABDOMEN WO CON 04/07/2019 11:37 AM FINDINGS: Lungs: Underlying emphysematous changes of the visualized thorax. Liver: Normal. No mass. Gallbladder and biliary ducts: Normal. No calcified stones. No ductal dilation. Pancreas: Normal. No ductal dilation. Spleen: Normal. No splenomegaly. Adrenal glands: Normal. No mass. Kidneys and ureters: Normal. No hydronephrosis. Stomach and bowel: Sigmoid colonic diverticula without pericolonic fat stranding. Nonobstructive bowel gas pattern. Appendix: No evidence of appendicitis. Intraperitoneal space: Unremarkable. No free air. No significant fluid collection. Vasculature: Moderate atherosclerotic calcification of aortoiliac arteries. Lymph nodes: Unremarkable. No enlarged lymph nodes. Urinary bladder: Mild pericystic fat stranding. Reproductive: Unremarkable as visualized. Bones/joints: Age-indeterminate T12 anterior vertebral body compression fracture with approximate 50% vertebral body height loss with mild bony retropulsion. Osteopenia. Soft tissues: Unremarkable. IMPRESSION: 1. Pericystic fat stranding suspicious for cystitis. 2. Age-indeterminate T12 vertebral body compression fracture although likely acute. 3. Sigmoid colonic diverticulosis.
[2023-08-11] MEDS: KETOROLAC 30MG/ML VIAL 15 MG IV (18:31)
[2023-08-11] MEDS: ONDANSETRON 4MG/2ML VIAL 4 MG IV (18:31)
[2023-08-11] MEDS: LACTATED RINGERS 1000ML 1,000 ML 999 ML IV (18:33)
[2023-08-11] MEDS: ACETAMINOPHEN 1,000MG/100ML VIAL 1000 MG IV (18:33)
[2023-08-11 18:37] LABS: Chloride 105 mmol/L (98-107); Potassium 4.2 mmoL/L (3.5-5.1); Sodium 142 mmol/L (136-145)
[2023-08-11 18:40] LABS: Alanine Aminotransferase 31 U/L (12-78); Albumin/Globulin Ratio 1.1 (1.1-1.8); Alkaline Phosphatase 92 U/L (38-126); Anion Gap 14.2 mEq/L (5-15); Aspartate Amino Transferase 34 U/L (17-59); Bilirubin,Total 0.7 mg/dl (0.2-1.3); Blood Urea Nitrogen 20 mg/dl (9-20); Calcium 10.3 mg/dl (8.4-10.2); Carbon Dioxide 27 mmol/L (22.0-30.0); Creatinine Clearance Estimated 32 mL/min (50-200); Estimated Glomerular Filt Rate 32 ml/min (>60); GFR (African American) 39 ML/MIN (>60); Globulin 3.5 g/dL (1.3-3.2); Glucose 108 mg/dl (74-100); Lipase 105 U/L (23-300); Magnesium 1.8 mg/dl (1.6-2.3); Total Protein,Serum 7.5 g/dl (6.3-8.2)
[2023-08-11 18:41] LABS: Basophils # 0.1 K/mm3 (0-0.2); Eosinophils # 0.5 K/mm3 (0.0-0.4); Eosinophils % 5.1 % (0.1-12.0); Hematocrit 47.4 % (42.0-52.0); Hemoglobin 14.8 g/dL (14.1-18.0); Lymphocytes # 1.7 K/mm3 (0.7-4.5); Lymphocytes % 18.3 % (10-50); Mean Corpuscular HGB Conc 31.2 g/dL (31.8-35.4); Mean Corpuscular Hemoglobin 31.1 pg (27.0-31.2); Mean Corpuscular Volume 99.7 fl (80-94); Mean Platelet Volume 7.9 fl (7.4-10.4); Monocytes # 0.4 K/mm3 (0.1-1.0); Monocytes % 4.9 % (1.7-9.3); Neutrophils # 6.4 K/mm3 (1.8-7.8); Neutrophils % 70.7 % (37.0-80.0); Platelet Count 246 K/mm3 (142-424); Red Blood Count 4.76 M/mm3 (4.60-6.20); Red Cell Distribution Width 14.4 % (11.5-17.5); White Blood Count 9.1 K/mm3 (4.8-10.8)
[2023-08-11 18:54] LABS: Troponin I 0.01 ng/ml (0.00-0.034)
[2023-08-11] MEDS: IOPAMIDOL-370 (76%);100ML BOTTLE 75 ML IV (19:20)
--- NOTE | 2023-08-11 22:08 | PC.NURSE ---
urine sent up to lab at this time
[2023-08-11 22:11] LABS: Microscopic, Urine URINE MICROSCOPIC (MICROSCOPIC)
[2023-08-11 22:13] LABS: Appearance,Urine CLEAR (Clear); Blood, Urine TRACE-L (Negative); Color,Urine YELLOW (Yellow); Glucose,Urine (UA) Negative (Negative); Ketones,Urine Negative (Negative); Leukocyte Esterase,Urine Negative (Negative); Nitrate,Urine Negative (Negative); Protein,Urine Negative (Negative)
[2023-08-11 22:44] LABS: Bilirubin,Urine 1+ (Negative)
[2023-08-11 23:00] LABS: Squamous Epithelial Cell,Urine Occasional #/hpf (0-5); WBC,Urine Occasional #/hpf (0-3)
[2023-08-11 23:17] VITALS: BP 127/61; PULSE 66; RESP 16; TEMP 36.6
--- NOTE | 2023-08-11 23:45 | PC.NURSE ---
Patient called and said he lost discharge paperwork and requested another copy. Paperwork was reprinted and given to patient.
== END 2023-08-11 23:24 | disposition home or self-care (01) ==
PROVIDERS: Physician Assistant; Emergency Provider Emergency Medicine; PCP Physician Assistant
DX: R10.84 Generalized abdominal pain; R11.2 Nausea with vomiting, unspecified; S22.089A Unspecified fracture of T11-T12 vertebra, initial encounter for closed fracture; X58.XXXA Exposure to other specified factors, initial encounter
CPT/HCPCS: 74177; 80053; 81001; 83690; 83735; 84484; 85025; 96361; 96374; 96375; 99285; J0131; J1885; J2405; J7120; Q9967

== ENCOUNTER 2023-08-27 13:26 | Outpatient (CLI) | payer MEDICARE, OTHER, SELFPAY | END 2023-08-27 23:59 | disposition home or self-care (01) | LOC: LAB.DROPOF 13:27 | PROVIDERS: PCP Physician Assistant; Visit Provider Physician Assistant | DX: N39.0 Urinary tract infection, site not specified (principal) | CPT/HCPCS: 87086 ==

== ENCOUNTER 2024-07-21 14:52 | Outpatient (CLI) | payer MEDICARE, OTHER, SELFPAY ==
--- NOTE | 2024-07-21 14:56 | XR_ITS ---
FINAL REPORT CLINICAL HISTORY: foot pain, best obtainable images for lateral FINDINGS: AP, oblique and lateral views of the left foot were obtained. There is no prior exam for comparison. There is no acute fracture or dislocation. Osteopenia is noted. There is multijoint degenerative disease. No bony erosions are noted. Soft tissues are unremarkable. IMPRESSION: Degenerative/chronic changes without acute osseous abnormality of the left foot. Reviewed, Interpreted and Dictated by Lucero Stuart MD Transcribed by Imelda Lopez Authenticated and [facility]
--- NOTE | 2024-07-21 14:56 | XR_ITS ---
FINAL REPORT CLINICAL HISTORY: foot pain FINDINGS: AP, oblique and lateral views of the right foot were obtained. There is no prior exam for comparison. There is no acute fracture or dislocation. Osteopenia is noted. There is multijoint degenerative disease. No bony erosions are noted. Soft tissues are unremarkable. IMPRESSION: Degenerative/chronic changes without acute osseous abnormality of the right foot. Reviewed, Interpreted and Dictated by Lucero Stuart MD Transcribed by Imelda Lopez Authenticated and [facility]
== END 2024-07-21 23:59 | disposition home or self-care (01) ==
LOC: RAD 14:53
PROVIDERS: PCP Physician Assistant; Visit Provider Podiatrist
DX: M19.072 Primary osteoarthritis, left ankle and foot (principal); M19.071 Primary osteoarthritis, right ankle and foot; M20.41 Other hammer toe(s) (acquired), right foot; M20.42 Other hammer toe(s) (acquired), left foot
CPT/HCPCS: 73630

== ENCOUNTER 2024-07-27 14:54 | Outpatient (CLI) | payer MEDICARE, OTHER, SELFPAY ==
--- OUTSIDE RECORDS SUMMARY | 2024-06-29 10:45 | XMS_ITS | Encounter Summary ---
Author Organization [facility] Address [address] [place] [address] Care Team Providers Care Freight Brakeman Name Role Phone Hattie Dorman Primary Care Provider [phone] Reason for Visit * Reason Comments Glaucoma Encounter Details Date Type Department Care Team (Late st Contact Info) Description 06/29/2024 10:45 AM EDT Office Visit [facility] [address] [place] [address] Rajesh Fisher MD [address] [address] Primary open angle glaucoma of [...] - LAURA (uses CPAP) - lives in [place] - 60th anniversary 12/11/23 - low vision [...] Description 09/17/2024 11:40 AM EDT Office Visit [facility] [place] [address] [facility] [place] [address] Cal Florentino MD [address] [place] [address] 11/30/2024 11:20 AM EDT Office Visit [facility] [address] [place] [address] Rajesh Fisher MD [address] [place] [phone] documented as of this encounter Visit [...] documented as of this encounter Care Teams Freight Brakeman Relationship Specialty Start Date End Date Hattie Dorman PA [address] [place] [address] PCP - General 11/07/23 documented as of this encounter
--- OUTSIDE RECORDS SUMMARY | 2024-07-27 15:01 | XMS_ITS | Encounter Summary ---
Author Organization [employer] Address [address] [place] [address] Care Team Providers Care Software Development Advisor Name Role Phone Tomy Witt MD Primary Care Provider [phone] Encounter Details Date Type Department Care Team (Late st Contact Info) Description 08/26/2021 Transcribed Document [facility] [address] [place] [address] ProviderGarrison MD [address] [place] [address] Social History Tobacco Use Types Packs/Day Years Used Date Smoking Tobacco: Never Assessed Sex and Gender Information Value Date Recorded Sex Assigned at Male 11/17/2021 5:57 PM CDT Legal Sex Male 1:42 PM CDT Gender Identity Male 11/17/2021 5:57 PM CDT Sexual Orientation Not on file documented as of this encounter Miscellaneous Notes * Cerner Conversion Note - Garrison Louie MD - 08/26/2021 10:59 AM CDT EPILEPSY ADMISSION NOTE DATE OF ADMISSION: 08/26/2021 ADMITTING PHYSICIAN: BOBBY MILLER MD REASON FOR ADMISSION: Recurrent seizures. HISTORY: This is a 81-year-old man, who has had recurrent spells for a few years. They typically occur in clusters over several days. They are stereotypical in nature. He has sudden onset of an unusual sensation that resembles feeling startled. This sensation builds up in intensity, with subsequent gradual fading over the period of a minute. He reports no associated loss of awareness. His , however, has witnessed some episodes and she reports that at times, he can become unresponsive with staring and mumbling. He is typically quite tired afterwards. PAST MEDICAL HISTORY: 1. Glaucoma. 2. Thyroid disease. 3. Hypertension. PAST SURGICAL HISTORY: Cervical vertebral fusion. FAMILY HISTORY: 1. Diabetes. 2. Coronary artery disease. SOCIAL HISTORY: He drinks alcohol on occasion. He does not smoke tobacco at present. REVIEW OF SYSTEMS: He denies symptoms referable to the cardiac, pulmonary, gastrointestinal, or genitourinary systems. He has had occasional mood swings, but denies depressive symptoms. He denies disturbance of memory or frequent headaches. He reports weakness and paresthesias along with intermittent unsteadiness. PHYSICAL EXAMINATION: VITAL SIGNS: On the day of admission, blood pressure 102/62, heart rate 70 per minute and regular, respiratory rate 20 per minute. HEENT: Pupils are equal and reactive. NECK: Supple. LUNGS: Clear. HEART: Regular rate and rhythm. Normal peripheral pulses. NEUROLOGIC: He is alert and well oriented. Normal language functions. Normal cranial nerves. Full range of motion of extraocular muscles. Symmetric facial contractions. Normal tongue movements. On motor examination, he had weakness in distal lower extremity muscles. Coordination; normal mielpd-ut-bars. IMPRESSION: Mr. Magdaleno has had recurrent spells for a few years, typically occurring in clusters. The clinical features of episodes suggest the possibility of focal seizures with or without impairment of awareness. The possibility of nonepileptic spells cannot be excluded. PLAN: 1. Admit to the epilepsy monitoring unit. 2. Start video EEG monitoring. 3. Seizure precautions. 4. Discontinue divalproex. 5. Continue other home medications. 6. Lorazepam 2 mg IV for repetitive or prolonged seizures. /[id number] MD IRVING Wilson/SABIHA / TAF / MODL Electronically signed by Debra [facility] Conversion Workshop Manager Cerner at 06/07/2022 12:26 AM CDT documented in this encounter Plan of Treatment Not on file documented as of this encounter Visit Diagnoses Not on filedocumented in this encounter Care Teams Software Development Advisor Relationship Specialty Start Date End Date Tomy Witt MD [address] [place], [place] [id number] PCP - General Family Medicine 01/09/22 documented as of this encounter
--- OUTSIDE RECORDS SUMMARY | 2024-07-27 15:01 | XMS_ITS | Clinical Summary ---
Author Organization [employer] [facility] Address [address] [place] [address] Care Team Providers Care Manager Student Services Name Role Phone Tomy Witt MD Primary Care Provider [phone] Allergies Active Allergy Reactions Criticality Noted Date Comments Levetiracetam Low 07/20/2021 Other reaction(s): Unknown Medications albuterol (PROVENTIL) 2.5 mg /3 mL (0.083 %) nebulizer solution Inhale by mouth via inhaler every 6 (six) hours if needed. Active aspirin 81 MG EC tablet Take 1 tablet by mouth. Active atorvastatin (LIPITOR) 40 MG tablet Take 40 mg by mouth daily. 01/01/2022 Active brinzolamide (AZOPT) 1 % ophthalmic suspension Apply 1 drop to eye(s). 10/05/2021 Active budesonide-form oteroL (SYMBICORT) 160-4.5 mcg/actuation inhaler Inhale 2 puffs by mouth via inhaler. Active Symbicort 160-4.5 mcg/actuation inhaler 2 puffs 2 (two) times daily. 11/10/2021 Active carvediloL (COREG) 12.5 MG tablet Take 12.5 mg by mouth 2 (two) times daily. 11/10/2021 Active gabapentin (NEURONTIN) 300 MG capsule Take 300 mg by mouth nightly. 12/12/2021 Active ipratropium-alb uteroL (DUO-NEB) 0.5 mg-3 mg(2.5 mg base)/3 mL nebulizer solution Inhale 3 mLs by mouth via inhaler every 6 (six) hours if needed. Active PARoxetine (PAXIL) 40 MG tablet Take 40 mg by mouth daily. 11/29/2021 Active lamoTRIgine (LaMICtal) 100 MG tablet Take 1 tablet (100 mg total) by mouth 2 (two) times daily. 60 tablet 11 01/09/2022 Active Active Problems Problem Noted Date Diagnosed Date COPD (chronic obstructive pulmonary disease) History of obstructive sleep apnea 01/09/2022 HLD (hyperlipidemia) 01/09/2022 HTN (hypertension) 01/09/2022 Essential hypertension 03/31/2021 Dry eyes, bilateral 10/02/2020 Shortness of breath 08/10/2020 Diastolic dysfunction 06/23/2020 Exercise hypoxemia 03/26/2019 Asthma, extrinsic 03/12/2019 Diastolic dysfunction, left ventricle 03/12/2019 Muscle weakness of extremity 02/03/2019 CAD (coronary artery disease) 09/10/2018 Status post cervical spinal fusion 12/19/2017 Bleeding tendency 11/27/2017 Balance problem 10/25/2017 DDD (degenerative disc disease), cervical 2017 Spinal stenosis of cervical region 10/25/2017 Neck pain 10/25/2017 Cervical spondylosis with myelopathy 10/09/2017 CKD (chronic kidney disease) stage 3, GFR 30-59 ml/min 10/04/2017 Hemorrhage of optic disc, right 10/31/2016 After cataract not obscuring vision, left 2015 Primary open angle glaucoma of left eye, severe stage 03/29/2015 Primary open angle glaucoma of right eye, modera te stage 03/29/2015 Bilateral sensorineural hearing loss 10/15/2014 Cervical spinal cord compression 07/19/2014 Unsteady gait 07/19/2014 Cervical myelopathy 06/15/2014 Neuropathy 05/03/2014 Immunizations Name Administration Dates Next Due Pneumococcal Conjugate (Prevnar) 13-Valent 09/10 Family History Medical History Relation Name Comments Heart disease Other Relation Name Status Comments Other Social History Tobacco Use Types Packs/Day Years Used Date Smoking Tobacco: Never Smokeless Tobacco: Never Alcohol Use Standard Drinks/Week Comments Never 0 (1 standard drink = 0.6 oz pur e alcohol) Interpersonal Safety Answer Date Record ed Family or friends hurt you Not on file 03/08 Family or friends insult you Not on file Family or friends threaten you Not on file 0 03/08/2023 Family or friends scream or curse at you Not on file 03/08/2023 Housing Stability Answer Date Recorded Living situation today Not on file Living situation problems Not on file 2023 Food Insecurity Answer Date Recorded Food run out past 12 months Not on file 02/18 Food did not last past 12 months Not on file 03/08/2023 Employment Answer Date Recorded Help finding and keeping a job Not on file 0 03/08/2023 Family and Community Support Answer Jese e Recorded Help with Day to Day Activities Not on file 03/08/2023 Feeling Lonely or Isolated Not on file 03/08 Educational Attainment Answer Date Renan rded Speak language other than Greek at home Not on file 03/08/2023 Want help with school or training Not on file 03/08/2023 Depression Answer Date Recorded PHQ-2 Risk Not on file 03/08/2023 Disabilities Answer Date Recorded Difficulty concentrating Not on file 024 Difficulty doing errands alone Not on file 0 03/08/2023 Substance Use Answer Date Recorded Used prescription meds for non-medical reasons N ot on file 03/08/2023 Used illegal drugs past 12 months Not on file 03/08/2023 Sex and Gender Information Value Date Recorded Sex Assigned at Male 11/17/2021 5:57 PM CDT Legal Sex Male 1:42 PM CDT Gender Identity Male 11/17/2021 5:57 PM CDT Sexual Orientation Not on file Last Filed Vital Signs Vital Sign Reading Time Taken Comments Blood Pressure 122/58 01/09/2022 1:45 PM EST Pulse 80 01/09/2022 1:45 PM EST Temperature - - Respiratory Rate - - Oxygen Saturation - - Inhaled Oxygen Concentration - - Weight 78.5 kg (173 lb) 01/09/2022 1:45 PM EST Height 182.9 cm (6') 01/09/2022 1:45 PM EST Body Mass Index 23.46 01/09/2022 1:45 PM EST Plan of Treatment Health Maintenance Due Date Last Done Comments Medicare Initial AWV [id number] Depression Screening (12+) 1954 Shingles Vaccine (Zoster) (1 of 2) 1992 DTAP/TDAP/TD VACCINES (2 - T d or Tdap) 04/24/2006 04/24/1996 Respiratory Syncytial Virus (RSV) Adult or (1 - 1-dose 75+ series) 2017 Pneumococcal 50+ years (2 of 2 - PPSV23) 11/05/2018 09/10/2018 Tobacco Cessation Counseling and Screening (12+) 01/09/2023 01/09/2022 COVID-19 VACCINE (4 - 2023- season) 2023 01/27/2021, 04/01/2020, 03/02/2020 Falls Risk Screening 02/19/2024 Influenza Vaccine (Season Ended) 2024 01/11/20 21 Insurance [place] [id number] MEDICARE PART A B Care Teams Manager Student Services Relationship Specialty Start Date End Date Tomy Witt MD [address] [place] [address] [place] [id number] PCP - General Family Medicine 01/09/22
--- OUTSIDE RECORDS SUMMARY | 2024-07-27 15:01 | XMS_ITS | Encounter Summary ---
Author Organization [employer] Address [address] [place] [address] Care Team Providers Care Sustainability Manager Name Role Phone Tomy Witt MD Primary Care Provider [phone] Encounter Details Date Type Department Care Team (Late st Contact Info) Description 08/27/2021 Transcribed Document [facility] [place] [facility] [place] [address] ProviderGarrison MD [address] [place] [address] Social History Tobacco Use Types Packs/Day Years Used Date Smoking Tobacco: Never Assessed Sex and Gender Information Value Date Recorded Sex Assigned at Male 11/17/2021 5:57 PM CDT Legal Sex Male 1:42 PM CDT Gender Identity Male 11/17/2021 5:57 PM CDT Sexual Orientation Not on file documented as of this encounter Miscellaneous Notes * Cerner Conversion Note - Garrison ProviderMD - 08/27/2021 10:44 AM CDT Patient: KALIA MAGDALENO Age: 81 years Sex: Male : 1940 Associated Diagnoses: None Author: BOBBY MILLER MD-KRISTIN Subjective Seizure: Yes [ ] No [x ] Event: Yes [ ] No [x ] ROS Complaint: Yes [ ] No [x ] Headache: Yes [ ] No [ ] Cardiac: Yes [ ] No [ ] Pulmonary: Yes [ ] No [ ] GI: Yes [ ] No [ ] : Yes [ ] No [ ] Skeletal: Yes [ ] No [ ] Health Status Allergies: Allergic Reactions (Selected) Severity Not Documented LevETIRAcetam- No reactions were documented., Allergies (1) Active Reaction levETIRAcetam None Documented Current medications: (Selected) Inpatient Medications Ordered Azopt 1% ophthalmic suspension: 1 Drop, Eye Right, Daily Entresto 24 mg-26 mg oral tablet: 0.5 Tab, Oral, BID LORazepam: 2 mg, IV Push, Q8H, PRN: Seizures PARoxetine: 40 mg, Oral, Daily Zofran: 4 mg, IV Push, Q6H, PRN: Nausea/Vomiting albuterol CFC free 90 mcg/inh inhalation aerosol with adapter: 2 Puff, Inhalation, Q6H, PRN: Wheezing aspirin: 81 mg, Oral, Daily atorvastatin: 40 mg, Oral, At Bedtime carvedilol: 6.25 mg, Oral, BID formoterol-mometasone 5 mcg-200 mcg/inh inhalation aerosol: 2 Puff, Inhalation, BID gabapentin: 300 mg, Oral, At Bedtime ibuprofen: 600 mg, Oral, Q6H, PRN: Headache/Pain nicotine 21 mg/24 hr transdermal film, extended release: 1 Patch, TransDermal, Daily, PRN: Smoking Cessation spironolactone: 25 mg, Oral, Daily Documented Medications Documented Azopt 1% ophthalmic suspension: 1 Drop, Eye Right, Daily, 0 Refill(s) Entresto 24 mg-26 mg oral tablet: 0.5 Tab, Oral, BID, 0 Refill(s) PARoxetine 40 mg oral tablet: 1 Tab, Oral, Daily, 0 Refill(s) Symbicort 160 mcg-4.5 mcg/inh inhalation aerosol: 2 Puff, Inhalation, BID, 0 Refill(s) albuterol CFC free 90 mcg/inh inhalation aerosol with adapter: 2 Puff, Inhalation, Q6H, PRN: as needed for wheezing, 0 Refill(s) aspirin 81 mg oral delayed release tablet: 1 Tab, Oral, Daily, 30 Tab, 0 Refill(s) atorvastatin 40 mg oral tablet: 1 Tab, Oral, Daily, 0 Refill(s) carvedilol 12.5 mg oral tablet: 0.5 Tab, Oral, BID, 0 Refill(s) divalproex sodium 250 mg oral delayed release tablet: 1 Tab, Oral, BID, 0 Refill(s) gabapentin 300 mg oral capsule: 1 Cap, Oral, At Bedtime, 30 Cap, 0 Refill(s) spironolactone 25 mg oral tablet: 1 Tab, Oral, Daily, 30 Tab, 0 Refill(s), Home Medications (11) Active albuterol CFC free 90 mcg/inh inhalation aerosol with adapter 2 Puff, PRN, Inhalation, Q6H aspirin 81 mg oral delayed release tablet 81 mg = 1 Tab, Oral, Daily atorvastatin 40 mg oral tablet 40 mg = 1 Tab, Oral, Daily Azopt 1% ophthalmic suspension 1 Drop, Eye Right, Daily carvedilol 12.5 mg oral tablet 6.25 mg = 0.5 Tab, Oral, BID divalproex sodium 250 mg oral delayed release tablet 250 mg = 1 Tab, Oral, BID Entresto 24 mg-26 mg oral tablet 0.5 Tab, Oral, BID gabapentin 300 mg oral capsule 300 mg = 1 Cap, Oral, At Bedtime PARoxetine 40 mg oral tablet 40 mg = 1 Tab, Oral, Daily spironolactone 25 mg oral tablet 25 mg = 1 Tab, Oral, Daily Symbicort 160 mcg-4.5 mcg/inh inhalation aerosol 2 Puff, Inhalation, BID , Medications (14) Active Scheduled: (9) aspirin 81 mg chew tab 81 mg 1 Tab, Oral, Daily atorvastatin 40 mg tab 40 mg 1 Tab, Oral, At Bedtime brinzolamide 1% ophth susp 10 mL 1 Drop, Eye Right, Daily carvedilol 6.25 mg tab 6.25 mg 1 Tab, Oral, BID gabapentin 300 mg cap 300 mg 1 Cap, Oral, At Bedtime mometasone/formoterol 200/5 mcg inh 2 Puff, Inhalation, BID PARoxetine 20 mg tab 40 mg 2 Tab, Oral, Daily sacubitril-valsartan 24 mg-26 mg tab 0.5 Tab, Oral, BID spironolactone 25 mg tab 25 mg 1 Tab, Oral, Daily Continuous: (0) PRN: (5) albuterol CFC free 90 mcg/puff inh 8 g 2 Puff, Inhalation, Q6H ibuprofen 600 mg tab 600 mg 1 Tab, Oral, Q6H LORazepam 2 mg/mL inj 2 mg 1 mL, IV Push, Q8H nicotine 21 mg/24 hr patch 1 Patch, TransDermal, Daily ondansetron 4 mg/2 mL inj 4 mg 2 mL, IV Push, Q6H Problem list: Medical History of obstructive sleep apnea / IMO [id number] / Confirmed, Active Problems (4) COPD (chronic obstructive pulmonary disease) History of obstructive sleep apnea HLD (hyperlipidemia) HTN (hypertension) Objective VS/Measurements Vital Signs/Vital Measures 08/27/2021 9:51 EDT Heart Rate Monitored 75 bpm Respiratory Rate 18 Breaths/Min Oxygen Saturation 95 % Oxygen Therapy Mode Room air 08/27/2021 8:00 EDT Systolic Blood Pressure 105 mmHg Diastolic Blood Pressure 57 mmHg LOW Mean Arterial Pressure (MAP)-BMDI 68 Temperature Source Oral Temperature Mode Fahrenheit Temperature, Fahrenheit 98.3 Deg F Clinical Temperature, C 36.8 Deg C Heart Rate Monitored 59 bpm LOW Respiratory Rate 18 Breaths/Min Oxygen Saturation 97 % Oxygen Therapy Mode Room air 08/27/2021 6:19 EDT Systolic Blood Pressure 105 mmHg Diastolic Blood Pressure 55 mmHg LOW Mean Arterial Pressure (MAP)-BMDI 67 Temperature Source Oral Temperature Mode Fahrenheit Temperature, Fahrenheit 98.2 Deg F Clinical Temperature, C 36.8 Deg C Heart Rate Monitored 53 bpm LOW Respiratory Rate 18 Breaths/Min Oxygen Saturation 94 % Oxygen Therapy Mode Room air 08/27/2021 4:22 EDT Oxygen Saturation 96 % Oxygen Therapy Mode CPAP 08/27/2021 0:57 EDT Oxygen Therapy Mode CPAP 08/26/2021 20:41 EDT Heart Rate Monitored 62 bpm Oxygen Saturation 95 % Oxygen Therapy Mode Room air 08/26/2021 20:36 EDT Systolic Blood Pressure 98 mmHg Diastolic Blood Pressure 57 mmHg LOW Mean Arterial Pressure (MAP)-BMDI 63 Temperature Source Oral Temperature Mode Fahrenheit Temperature, Fahrenheit 97.8 Deg F Clinical Temperature, C 36.6 Deg C 08/26/2021 20:00 EDT Respiratory Rate 18 Breaths/Min 08/26/2021 9:17 EDT Systolic Blood Pressure 102 mmHg Diastolic Blood Pressure 62 mmHg Mean Arterial Pressure (MAP)-BMDI 76 Temperature Source Oral Temperature Mode Fahrenheit Temperature, Fahrenheit 98 Deg F Clinical Temperature, C 36.7 Deg C Heart Rate Monitored 70 bpm Respiratory Rate 20 Breaths/Min Oxygen Saturation 95 % Oxygen Therapy Mode Room air , Measurements from flowsheet : Measurements 08/26/2021 9:14 EDT Height Source Stated Height Entry Format [place] Height/Length, MONGOLIAN (ft) 6 ft Height/Length MONGOLIAN 0 Inch CLINICALHEIGHT 182.88 cm [place] Body Weight 77 kg Weight Source Bed scale Weight Entry Format [place] Weight [place] lb 170 lb CLINICALWEIGHT 77.27 kg Body Surface Area (BSA) 1.99 m2 Body Mass Index 23.1 kg/m2 08/26/2021 8:53 EDT Height Source Not Done: Completed and previously documented (Not Done) Height Entry Format Not Done: Completed and previously documented (Not Done) Weight Source Not Done: Completed and previously documented (Not Done) , Vitals Signs (last 24 hrs) Last Charted Minimum Maximum Temp 98.3 (AUG 27 08:00) 97.8 (AUG 26:36) 98.2 (AUG 27:) Mon HR 75 (AUG 27:51) 53 (AUG 27:19) 75 (AUG 27:51) Resp Rate 18 (AUG 27:51) 18 (AUG 26 20:00) 18 (AUG 26:00) SBP 105 (AUG 27 08:00) 98 (AUG 26:36) 105 (AUG 27:) DBP L 57 (AUG 27 08:00) L 55 (AUG 27:) L 57 (AUG 26:36) MAP 68 (AUG 27 08:00) 63 (AUG 26:36) 68 (AUG 27 08:00) SpO2 95 (AUG 27:51) 94 (AUG 27:19) 97 (AUG 27 08:00) General: Alert and oriented. Eye: Pupils are equal, round and reactive to light. Neurologic: Normal motor function, No focal deficits, Cranial Nerves II-XII are grossly intact. Psychiatric: Appropriate mood & affect. Results Review Continuous EEG: Bilateral frontal-temporal sharp waves, more on the left Impression and Plan Discussed findings with patient. 1. Continue video EEG monitoring. 2. Encouraged increase in level of activity. 3. Sleep deprivation: Yes [ ] No [x ] documented in this encounter Plan of Treatment Not on file documented as of this encounter Visit Diagnoses Not on filedocumented in this encounter Care Teams Sustainability Manager Relationship Specialty Start Date End Date Tomy Witt MD [address] [place], [place] [id number] PCP - General Family Medicine 01/09/22 documented as of this encounter
--- OUTSIDE RECORDS SUMMARY | 2024-07-27 15:01 | XMS_ITS | Encounter Summary ---
Author Organization [employer] Address [address] [place] [address] Care Team Providers Care Panelboard Operator Name Role Phone Tomy Witt MD Primary Care Provider [phone] Encounter Details Date Type Department Care Team (Late st Contact Info) Description 08/26/2021 Transcribed Document [facility] [place] [address] [place] [address] ProviderGarrison MD [address] [place] [address] Social History Tobacco Use Types Packs/Day Years Used Date Smoking Tobacco: Never Assessed Sex and Gender Information Value Date Recorded Sex Assigned at Male 11/17/2021 5:57 PM CDT Legal Sex Male 1:42 PM CDT Gender Identity Male 11/17/2021 5:57 PM CDT Sexual Orientation Not on file documented as of this encounter Miscellaneous Notes * Cerner Conversion Note - Garrison ProviderMD - 08/26/2021 8:54 AM CDT Meds to Bed Enrollment Entered On: 08/28/2021 9:38 EDT Performed On: 08/26/2021 8:54 EDT by Albert Amin Director Of Managed Services Cert Lead Meds to Bed Enrollment Patient Enrollment Decision: : Yes/enroll in meds to bed program Albert Amin Director Of Managed Services Cert Lead - 08/28/2021 9:38 EDT documented in this encounter Plan of Treatment Not on file documented as of this encounter Visit Diagnoses Not on filedocumented in this encounter Care Teams Panelboard Operator Relationship Specialty Start Date End Date Tomy Witt MD [address] [place], [place] [id number] PCP - General Family Medicine 01/09/22 documented as of this encounter
--- OUTSIDE RECORDS SUMMARY | 2024-07-27 15:01 | XMS_ITS | Encounter Summary ---
Author Organization [employer] Address [address] [place] [address] Care Team Providers Care [facility] Director Name Role Phone Tomy Witt MD Primary Care Provider [phone] Encounter Details Date Type Department Care Team (Late st Contact Info) Description 09/14/2021 Transcribed Document [facility] [place] [facility] [place] [address] ProviderGarrison MD [address] [place], [place] [id number] Social History Tobacco Use Types Packs/Day Years Used Date Smoking Tobacco: Never Assessed Sex and Gender Information Value Date Recorded Sex Assigned at Male 11/17/2021 5:57 PM CDT Legal Sex Male 1:42 PM CDT Gender Identity Male 11/17/2021 5:57 PM CDT Sexual Orientation Not on file documented as of this encounter Miscellaneous Notes * Cerner Conversion Note - Garrison Louie MD - 09/14/2021 4:16 PM CDT DATE OF SERVICE: 08/28/2021 REPORT TYPE: EEG REFERRING PHYSICIAN: Mikey Kim MD REPORT TITLE: Video Electroencephalogram Report STUDY DURATION: 5 hours. HISTORY: This is a 81-year-old man, being evaluated for seizures. EEG VIDEO MONITORING METHODOLOGY: Time-locked EEG-video monitoring was performed using the 32-channel [employer] monitoring system. The seizure detection computer was used for detection of ictal discharges (subclinical and clinical), interictal discharges, and to record ictal events that were documented by depression of the event button in the patient's room. Analyses of the monitoring data were performed using the following techniques: Review of the relevant EEG-video data. Review of events detected by the computer system in detail. Review of clinical seizures, with both detailed review of EEG and video and playback using multiple montages. A variety of referential and bipolar montages were used. CLINICAL AND EEG ANALYSIS: There was no event reported during the period of monitoring. SPIKE DETECTION: The spike detection program was activated during the period of monitoring. Sharp waves are seen at Fp1-F3-C3 and Fp2-F4-C4 with intermittent involvement of F7 and F8. At times, sharp waves have a wider field of distribution involving T7 and T8 respectively. Sharp waves appear overall more common at MK5-Y2-F2-F7-T7. TIME SAMPLES: The recording was reviewed. During wakefulness, 9.5 to 10 Hz activity is seen posteriorly. Lower amplitude faster activity in the beta range is noted with a wider distribution in both hemispheres. 4 to 5 Hz theta waves are noted at F7-T7 with involvement of Fp1-F3 and less frequently at F8-T8 with involvement of Fp2-F4. EEG DIAGNOSES: This is an abnormal video EEG study because of: 1. Sharp waves noted at Fp2-F4-F8 with involvement of T8 and Fp1-F3-F7 with involvement of T7. 2. Focal slow wave activity seen at F7-T7 and less frequently at F8-T8 with intermittent involvement of Fp1-F3 and Fp2-F4. CLINICAL INTERPRETATION: The patient had no clinical event during the period of monitoring. Continuous EEG recordings showed epileptiform discharges in the frontotemporal electrodes, more commonly on the left, suggestive of potential epileptogenicity in the frontotemporal regions, which may be more prominent on the left. Slow-wave activity was seen in the temporal electrodes in both hemispheres, suggestive of focal cerebral dysfunction in the temporal regions, more prominent on the left. /[id number] MD IRVING Wilson/SABIHA / IRVING / MODL /[id number] Electronically signed by Debra, [facility] Conversion Pm Technician Cerner at 06/07/2022 12:18 AM CDT documented in this encounter Plan of Treatment Not on file documented as of this encounter Visit Diagnoses Not on filedocumented in this encounter Care Teams Medical Center Director Relationship Specialty Start Date End Date Tomy Witt MD [address] [place] [address] PCP - General Family Medicine 01/09/22 documented as of this encounter
--- OUTSIDE RECORDS SUMMARY | 2024-07-27 15:01 | XMS_ITS | Encounter Summary ---
Author Organization [employer] Address [address] [place] [address] Care Team Providers Care Process Server Name Role Phone Tomy Witt MD Primary Care Provider Encounter Details Date Type Department Care Team (Late st Contact Info) Description 08/27/2021 Transcribed Document [facility] [place] [facility] [place] [address] ProviderGarrison MD [address] [place], [place] [address] Social History Tobacco Use Types Packs/Day Years Used Date Smoking Tobacco: Never Assessed Sex and Gender Information Value Date Recorded Sex Assigned at Male 11/17/2021 5:57 PM CDT Legal Sex Male 1:42 PM CDT Gender Identity Male 11/17/2021 5:57 PM CDT Sexual Orientation Not on file documented as of this encounter Miscellaneous Notes * Cerner Conversion Note - Garrison Louie MD - 08/27/2021 8:53 AM CDT DATE OF SERVICE: 08/26/2021 REPORT TYPE: EEG REFERRING PHYSICIAN: Mikey Kim MD REPORT TITLE: Video Electroencephalogram Report STUDY DURATION: One day. HISTORY: This is a 81-year-old man being evaluated for recurrent seizures. EEG VIDEO MONITORING METHODOLOGY: Time-locked EEG-video monitoring was performed using the 32-channel [employer] monitoring system. The seizure detection computer was [...] event reported during the period of monitoring. TIME SAMPLES: The recording was reviewed. During wakefulness, 9 to 10 Hz activity is seen posteriorly intermixed with lower amplitude faster activity in the beta range with a wider distribution. 4 to 5 Hz theta waves and less frequent 2 to 3 Hz delta waves are seen at F7-T7 and less prominently independently at F8-T8. Slow waves are seen more commonly in both hemispheres during periods of drowsiness. During sleep, well-formed sleep spindles are seen in both hemispheres. SPIKE DETECTION: The spike detection program was activated during the period of monitoring. Sharp waves are noted at F7-T7, and at times more prominently at Fp1-F3-F7 and Fp1-F3. Occasional sharp waves are seen independently at Fp2-F4-F8. EEG DIAGNOSES: This is an abnormal video EEG study because of: 1. Focal slow wave activity noted at F7-T7 and less prominently at F8-T8. 2. Sharp waves noted at C9-M3-Iy8-F3 and less frequently at Nf5-B2-R3-T8. CLINICAL INTERPRETATION: The patient had no clinical event during the period of monitoring. Continuous EEG recordings showed no electrographic ictal discharge. EEG recordings showed epileptiform discharges in the frontotemporal electrodes, more prominent on the left, suggestive of potential epileptogenicity in the frontotemporal regions, more prominent on the left. Slow wave activity was noted in the temporal electrodes, more prominent on the left, consistent with focal cerebral dysfunction in the temporal regions, more prominent on the left. /[id number] MD IRVING Wilson/SABIHA / IRVING / MODL /[id number] Electronically signed by Debra, [facility] Conversion Ceramic Tile Installer Cerner at 06/07/2022 12:08 AM CDT documented in this encounter Plan of Treatment Not on file documented as of this encounter Visit Diagnoses Not on filedocumented in this encounter Care Teams Process Server Relationship Specialty Start Date End Date Tomy Witt MD [address] [place], [place] [id number] PCP - General Family Medicine 01/09/22 documented as of this encounter
--- OUTSIDE RECORDS SUMMARY | 2024-07-27 15:01 | XMS_ITS | Clinical Summary ---
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 1 Unit dose every 4-6 hours as needed. Active aspirin 81 MG EC tablet Take 1 tablet (81 mg) by mouth 1 (one) time each day. Active atorvastatin (Lipitor) 40 MG tablet Take 1 tablet (40 mg) by mouth every night. Active budesonide-for moterol (Symbicort) 160-4.5 MCG/ACT inhaler Inhale 2 puffs 2 (two) times a day. Rinse mouth with water after use to reduce aftertaste and incidence of candidiasis. Do not swallow. Active gabapentin (Neurontin) 300 MG capsule TAKE ONE CAPSULE BY MOUTH EVERY DAY AT BEDTIME MAY CAUSE DROWSINESS 03/15/19 22 Active lamoTRIgine (LaMICtal) 100 MG tablet TAKE 1/2 TABLET BY MOUTH TWICE DAILY FOR 7 DAYS, THEN TAKE 1/2 TABLET IN THE MORNING AND 1 tablet IN THE EVENING FOR 14 DAYS, THEN TAKE ONE TABLET TWICE DAILY THEREAFTER 09/16/19 22 Active meclizine (Antivert) 25 MG tablet TAKE ONE TABLET BY MOUTH FOUR TIMES DAILY NEEDED FOR dizziness 03/16/19 23 Active sildenafil (Revatio) 20 MG tablet 02/07/20 22 Active fluticasone-sa lmeterol (Advair Diskus) 100-50 MCG/ACT diskus inhaler Inhale 1 puff 2 (two) times a day. Rinse mouth with water after use to reduce aftertaste and incidence of candidiasis. Do not swallow. Active memantine (Namenda) 10 MG tablet TAKE ONE TABLET BY MOUTH EVERY NIGHT FOR FOURTEEN DAYS THEN TAKE ONE TABLET BY MOUTH TWICE DAILY THERAFTER 12/18/19 23 Active cholecalcifero l (Vitamin D-3) 25 MCG (1000 UT) capsule 1 (one) time each day. 07/27/19 23 Active Entresto 24-26 MG tablet TAKE ONE TABLET BY MOUTH TWICE DAILY 60 tablet 12 07/03/19 24 Active donepezil (Aricept) 5 MG tablet TAKE ONE TABLET BY MOUTH EVERY DAY DIRECTED FOR memory 12/03/19 24 Active ARIPiprazole (Abilify) 2 MG tablet TAKE ONE TABLET BY MOUTH AT BEDTIME FOR mood 12/03/19 24 Active busPIRone (Buspar) 5 MG tablet TAKE ONE TABLET BY MOUTH TWICE DAILY DIRECTED FOR ANXIETY 12/03/19 24 Active brimonidine 0.2 % OP ophthalmic solution INSTILL ONE DROP IN EACH EYE TWICE DAILY 12/09/19 24 Active carvedilol (Coreg) 12.5 MG tablet Take 1 tablet by mouth 2 times a day with meals. 60 tablet 06/24/19 25 Active desvenlafaxine (Pristiq) 50 MG 24 hr tablet TAKE ONE TABLET BY MOUTH EVERY DAY DIRECTED FOR depression 06/09/19 25 Active diazePAM (Valium) 2 MG tablet TAKE ONE TABLET BY MOUTH EVERY DAY NEEDED FOR anxiety/agitatio n/sleeplessness MAY CAUSE DROWSINESS 03/21/19 25 Active traZODone (Desyrel) 50 MG tablet TAKE TWO TABLETS BY MOUTH EVERY DAY DIRECTED FOR SLEEP 04/06/19 25 Active latanoprost (Xalatan) 0.005 % ophthalmic solutionIndica tions:Primary open angle glaucoma of right eye, moderate stage,Primary open angle glaucoma of left eye, severe stage Administer 1 drop into both eyes nightly. 2.5 mL 06/30/19 25 026 Active ipratropium-al buterol (Duo-Neb) 0.5-2.5 mg/3 mL nebulizer solution Take 3 mL by nebulization every 6 (six) hours if needed. 025 Discontinu ed(Per Patient Report) Active Problems Problem Noted Date Diagnosed Date Abdominal pain 01/24/2024 Closed T12 fracture 01/24/2024 Complex partial seizure disorder 01/24/2024 Overview (01/24/2024): 04/03/2023: Currently stable on Lamictal generic 150 mg twice daily, most recent laboratory work, Lamictal level 5.7 within therapeutic range 01/02/2023: Recently seen at local ED due to atypical spells not associated with impairment of consciousness. Etiology is unclear cannot exclude simple versus complex partial seizure disorder. Lamotrigine level was requested today. Previous lamotrigine level 8, within therapeutic range. 09/26/2018: Sleep deprived/prolonged EEG, ZETO: Abnormal EEG. Asymmetrical, slow background rhythm. Focal slowing, independent transient sharps and occasional phase reversal seen over the bifrontal regions, left greater than right. Focal slowing in the Delta and Theta range seen over the left frontotemporal region. Cannot exclude focal cerebral dysfunction in this region. Hearing loss 01/24/2024 Overview (01/24/2024): Bilateral hearing aids Memory loss 01/24/2024 Overview (01/24/2024): Short-term memory impairment for almost a year with evidence of slowly progression. Currently inependent for activities of daily living Orthostatic dizziness 01/24/2024 Overview (01/24/2024): Symptoms improved after several medications were discontinued or adjusted by cardiology team, ([facility]) LAURA on CPAP 01/24/2024 Overview (01/24/2024): Stable Vitamin B12 deficiency (dietary) anemia 01/24/20 24 Overview (01/24/2024): On replacement by PCP. Most recent level greater than 2000 Anxiety 12/03/2023 Congestive heart failure 12/03/2023 Dementia 12/03/2023 Overview (01/24/2024): Slowly progressive memory deficit currently on Namenda 10 mg p.o. twice daily. BMI 22.5, weight loss, mild anorexia. 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 COPD (chronic obstructive pulmonary disease) HLD (hyperlipidemia) 01/09/2022 Essential hypertension 03/31/2021 Dry eyes, bilateral 10/02/2020 Dyspnea, unspecified 08/10/2020 Diastolic dysfunction 06/23/2020 Exercise hypoxemia 03/26/2019 Asthma, extrinsic 03/12/2019 Diastolic dysfunction, left ventricle 03/12/2019 Muscle weakness of extremity 02/03/2019 CAD (coronary artery disease) 09/10/2018 Status post cervical spinal fusion 12/19/2017 Bleeding tendency 11/27/2017 DDD (degenerative disc disease), cervical 2017 Spinal stenosis of cervical region 10/25/2017 Balance problem 10/25/2017 Neck pain 10/25/2017 Cervical spondylosis with myelopathy 10/09/2017 CKD (chronic kidney disease) stage 3, GFR 30-59 ml/min 10/04/2017 Hemorrhage of optic disc, right 10/31/2016 After cataract not obscuring vision, left 2015 Primary open angle glaucoma of left eye, severe stage 03/29/2015 Primary open angle glaucoma of right eye, modera te stage 03/29/2015 Bilateral sensorineural hearing loss 10/15/2014 Unsteady gait 07/19/2014 Cervical spinal cord compression 07/19/2014 Cervical myelopathy 06/15/2014 Neuropathy 05/03/2014 Encounters Date Type Department Care Team Description 06/29/2024 10:45 AM EDT Office Visit [facility] [address] [place] [id number] Rajesh Fisher MD Primary open angle glaucoma of right eye, moderate stage (Primary Dx); Primary open angle glaucoma of left eye, severe stage; After cataract not obscuring vision, left 06/29/2024 Travel 06/26/2024 Travel from Last 3 Months Immunizations Immunization Administration Dates Next Due Influenza Vaccine, Quadrivalent, Adjuvanted 11/18 Influenza, high-dose, quadrivalent 01/10/2021 Influenza, injectable, quadr ivalent, preservative free 12/28/2021 Influenza, trivalent, adjuvanted 11/21/2023 Moderna COVID-19 Vaccine (Re d Cap) 12+ years 01/27/2021,04/01/2020,03/02/2020 Pneumococcal Conjugate PCV 13 09/10/2018 TD (adult), 2 Lf tetanus tox oid, preservative free, adsorbed 04/24/1996 Family History Medical History Relation Name Comments Angina Father Tanner Magdaleno Cardiac disorder Father Tanner Magdaleno Conversions - Other Father Tanner Magdaleno Heari ng deficit Coronary artery disease Father Tanner Magdaleno Heart attack Father Tanner Magdaleno Diabetes Mother Anjali Magdaleno Diabetes type II Mother Anjali Magdaleno Cerebral aneurysm Sister Anesthesia problems Neg Hx Malig Hypertension Neg Hx Malig Hyperthermia Neg Hx Relation Name Status Comments Father Tanner Magdaleno Mother Anjali Magdaleno Sister Social History Tobacco Use Types Packs/Day Years [...] Orientation Straight 03/10/2021 1: 02 AM EST Last Filed Vital Signs Vital Sign Reading Time Taken Comments Blood Pressure 112/65 11/07/2023 3:31 PM EDT Pulse 53 11/07/2023 3:31 PM EDT Temperature 36.7 C (98.1 F) 09/18/2022 4:15 PM EDT Respiratory Rate 18 11/07/2023 3:31 PM EDT Oxygen Saturation 93% 11/07/2023 3:31 PM EDT RA Inhaled Oxygen Concentration - - Weight 77.5 kg (170 lb 13.7 oz) 11/07/2023 3:31 PM EDT Height 182.9 cm (6') 11/07/2023 3:31 PM EDT Body Mass Index 23.17 11/07/2023 3:31 PM EDT Plan of Treatment Upcoming Encounters Date Type Department Care Team (Late st Contact Info) Description 09/17/2024 11:40 AM EDT Office Visit [facility] [address] [place] [address] Cal Florentino MD [address] [place] [address] 11/30/2024 11:20 AM EDT Office Visit [facility] [address] [place] [address] Rajesh Fisher MD [address] [address] Health Maintenance Due Date Last Done Comments [facility]-Medicare Annual Wellness (AWV) 1942 [facility]-Infant/Child/Adol SDOH Screenings 1942 [facility]- SDOH Screenings 1960 [facility]-Adult SDOH Screenings 1960 [facility]-Zoster Vaccines (1 of 2) 1992 [facility]-DTaP,Tdap,and Td Vaccines (1 - Tdap) 04/25/1996 04/24/1996 [facility]-RSV Vaccine: 60+ Years or (1 - 1-dose 75+ series) 2017 [facility]-Pneumococcal Vaccine: 50+ Years (2 of 2 - PPSV23) 11/05/2018 09/10/2018 [id number] Vaccine ( - season) 2024 11/21/2023, 12/28/2021, 01/27/2021, Additional history exists [facility]-Depression Screening 11/06/2024 11/07/2023 [facility]-Influenza Vaccine Completed 11/21/2023 , 11/27/2022, 12/28/2021, Additional history exists HPV Vaccines Aged Out No longer eligi ble based on patient's age to complete this topic [facility]-HIB Vaccines Aged Out No longer e ligible based on patient's age to complete this topic [facility]-Hepatitis A Vaccines Aged Out No longer eligible based on patient's age to complete this topic [facility]-IPV Vaccines Aged Out No longer e ligible based on patient's age to complete this topic [facility]-Rotavirus Vaccines Aged Out No lo nger eligible based on patient's age to complete this topic Medical Devices Implanted Type Area Wood Sawyer Device Identifier Shelf Expiration Date Model / Serial / Lot Glaucoma Valve Ahmed Adult - [id number] - [id number] Implanted:Qty : 1 on 09/18/2022 by Mau Guy MD at [facility] Eye Implant Right: Eye [facility] [id number] 08/01/2024 FP7 / [id number] / [id number] Tissue Sclera - [id number] - [id number] Implanted:Qty : 1 on 09/18/2022 by Mau Guy MD at [facility] Eye Implant Right: Eye [id number] 09/26/2022 SCLERA TISSUE / [id number] [id number] Glaucoma Valve Ahmed Adult - [id number] Implanted:02/2022 by Rajesh Fisher MD at [facility] (Quantity not on file) [facility] Medical-[id number] FP7 / / Insurance KAREL AGUILAR [id number] MEDICARE [place] [id number] [facility] COMMERCIAL Care Teams Portable Feed Mill Operator Relationship Specialty Start Date End Date Hattie Dorman PA [address] [place] [address] PCP - General 11/07/23
--- OUTSIDE RECORDS SUMMARY | 2024-07-27 15:01 | XMS_ITS | Encounter Summary ---
Author Organization [facility] Address [address] [place] [address] Care Team Providers Care Health Care Assistant Name Role Phone Tomy Witt MD Primary Care Provider Encounter Details Date Type Department Care Team (Late st Contact Info) Description 08/28/2021 Transcribed Document [facility] Family Medicine [facility] [address] ProviderGarrison MD [address] [place], [place] [id number] Social History Tobacco Use Types Packs/Day Years Used Date Smoking Tobacco: Never Assessed Sex and Gender Information Value Date Recorded Sex Assigned at Male 11/17/2021 5:57 PM CDT Legal Sex Male 1:42 PM CDT Gender Identity Male 11/17/2021 5:57 PM CDT Sexual Orientation Not on file documented as of this encounter Miscellaneous Notes * Cerner Conversion Note - Garrison Louie MD - 08/28/2021 8:42 AM CDT DATE OF SERVICE: 08/27/2021 REPORT TYPE: EEG REFERRING PHYSICIAN: Mikey Kim MD REPORT TITLE: Video Electroencephalogram Report STUDY DURATION: One day. HISTORY: This is a 81-year-old man, being evaluated for recurrent seizures. EEG VIDEO MONITORING METHODOLOGY: Time-locked EEG-video monitoring was performed using the 32-channel Appoxeeus monitoring system. The seizure detection computer was [...] wakefulness, 9.5 to 10 Hz activity is noted posteriorly. Lower amplitude faster activity in the beta range is seen with a wider distribution. 4 to 5 Hz theta waves are noted at F7-T7 and less frequently at F8-T8. Occasional 2 to 3 Hz delta waves are seen in a similar distribution. The slow waves at times have a wider field of distribution involving Fp1-F3 and Fp2-F4 respectively. During sleep, well-formed sleep spindles are seen in both hemispheres. SPIKE DETECTION: The spike detection program was activated during the period of monitoring. Sharp waves are noted at Fp1-F7 with intermittent involvement of F3 and P7. Sharp waves are also noted on occasion independently at Fp2-F4-F8 with involvement of T8. EEG DIAGNOSES: This is an abnormal video EEG study because of: 1. Sharp waves seen at Fp1-F7 with involvement of F3 and T7. 2. Occasional sharp waves seen independently at Fp2-F4-F8 with involvement of T8. 3. Focal slow wave activity noted at F7-T7 and less prominently at F8-T8. CLINICAL INTERPRETATION: The patient had no clinical event during the period of monitoring. Continuous EEG recordings showed epileptiform discharges in the frontotemporal electrodes, more prominent on the left, consistent with potential epileptogenicity in the frontotemporal regions, more prominent on the left. EEG recordings also showed slow wave activity in the anterior temporal electrodes, more commonly on the left, consistent with focal cerebral dysfunction in the anterior temporal regions, which may be more prominent on the left. /[id number] MD IRVING Wilson/SABIHA / IRVING / MODL /[id number] documented in this encounter Plan of Treatment Not on file documented as of this encounter Visit Diagnoses Not on filedocumented in this encounter Care Teams Health Care Assistant Relationship Specialty Start Date End Date Tomy Witt MD [address] [place] [address] PCP - General Family Medicine 01/09/22 documented as of this encounter
--- OUTSIDE RECORDS SUMMARY | 2024-07-27 15:01 | XMS_ITS | Data Portability ---
Author Organization [employer] [place] [facility] Address [address] [place] [address] Assessment No assessment recorded. Plan of Treatment Reminders Order Date Submit Date Provider Last Modified By Organization Details Last Modified Time Details Appointments None recorded. Lab None recorded. Referral None recorded. Procedures None recorded. Surgeries None recorded. Imaging None recorded. Medication Orders cyanocobala min (vit B-12) 1,000 mcg/mL injection solution [address], [address] [place] [address] E Bert Lopez[place]Lenin [place], [id number], 15:35:25 cyanocobala min (vit B-12) 1,000 mcg/mL injection solution [address], [address] [place] [address] E Bert Lopez-Lenin [place], [id number], 4 17:04:26 memantine 10 mg tablet 2023 [facility] [employer] [facility], [address] [place] [address] E Bert G-Lenin [place], [id number], 4 13:32:23 donepezil 5 mg tablet 2023 [facility] [employer] [facility], [address] [place] [address] E Bert G-Lenin [place], [id number], 4 13:32:21 gabapentin 300 mg capsule 2023 [facility], [address] [place] [address] E Milla Sainz [place], [id number], 5 14:21:40 buspirone 5 mg tablet 2023 [facility], [address] [place] [address] E Milla Sainz [place], [id number], 4 13:32:23 Pristiq 50 mg tablet,exte nded release 2023 [facility], [address] [place] [address] E Milla Sainz [place], [id number], 4 15:26:11 aripiprazol e 2 mg tablet 2023 [facility], [address] [place] [address] E Milla Sainz [place], [id number], 4 13:32:25 Patient TargetsNo targets recorded. Patient Instructions Encounter Date Encounter Id Patient Instructions Last Modified By Organization Details Last Modified Time 12/03/2023 [id number] learning about mood disorders Not available 12/03/2023 16:49:12 Reason for Referral None Reported. Problems Name Problem SNOMED Code Status Onset Date Resolution Date Notes Provider Name and Address Organization Details Recorded Time Depressive disorder 83293557 Active PORFIRIO Doss [address] [place] [address], [address], [employer] 4 15:35:07 Anxiety 38468162 Active PORFIRIO Doss [address] [place] [address], [address], [employer] 4 15:34:50 Vitamin B12 deficiency (non anemic) 87439621 Active PORFIRIO Doss [address] [place] [address], [address], [employer] 4 15:34:56 Congestive heart failure 76334270 Active 024 Hattie Dandy, [address], [address], [employer] 4 15:34:53 Insomnia 324018635 Active 024 Hattie Shoals [address], [address], [employer] 4 15:35:11 Dementia 15219945 Active [address], [address], [employer] 4 15:35:03 Epilepsy 12712643 Active Hattie [address], [address], [employer] 4 15:35:06 Problem Notes None recorded. Procedures Surgical History Date Name Laterality Status Provider Name and Address Organization Details Recorded Time Angioplasty completed [employer] 12/03/2023 16:14:42 Back Surgery completed [employer] [facility] [employer] 12/03/2023 16:14:42 Cataract Surgery completed [employer] 12/03/2023 16:14:42 Eye Surgery completed [employer] 12/03/2023 16:14:42 Vasectomy completed [employer] [facility] [employer] 12/03/2023 16:14:42 Imaging Results None recorded. Procedure Notes None recorded. Medical Equipment None Reported. Allergies No known drug allergies Medications Name Sig Start Date Stop Date Status Note LastModified by Organization Details LastModified Time atorvastati n 40 mg tablet TAKE ONE TABLET BY MOUTH EVERY DAY 2024 active Not Available Not Available Not Avai lable buspirone 5 mg tablet TAKE ONE TABLET BY MOUTH TWICE DAILY DIRECTED FOR ANXIETY 2024 active Not Available Not Available Not Avai lable carvedilol 12.5 mg tablet TAKE ONE TABLET BY MOUTH TWICE DAILY --TAKE WITH FOOD-- active Not Available Not Available No t Available donepezil 5 mg tablet TAKE ONE TABLET BY MOUTH EVERY DAY DIRECTED FOR memory active Not Available Not Available No t Available trazodone 50 mg tablet TAKE TWO TABLETS BY MOUTH EVERY DAY DIRECTED FOR SLEEP active Not Available Not Available No t Available azithromyci n 250 mg tablet TAKE 2 TABLETS BY MOUTH ON DAY 1, THEN TAKE 1 TABLET DAILY ON DAYS 2-5 active Not Available Not Available No t Available diazepam 2 mg tablet TAKE ONE TABLET BY MOUTH EVERY DAY NEEDED FOR anxiety/a gitation/ sleepless ness MAY CAUSE DROWSINES S active Not Available Not Available No t Available cyanocobala min (vit B-12) 1,000 mcg/mL injection solution Inject 1 mL by subcutane ous route. 2023 active Not Available Not Available Not Avai lable brimonidine 0.2 % eye drops INSTILL ONE DROP IN EACH EYE TWICE DAILY active Not Available Not Available No t Available gabapentin 300 mg capsule TAKE ONE CAPSULE BY MOUTH EVERY DAY AT BEDTIME FOR insomnia 2024 active Not Available Not Available Not Avai lable dorzolamide 22.3 mg-timolol 6.8 mg/mL eye drops INSTILL 1 DROP IN THE RIGHT EYE TWICE DAILY active Not Available Not Available No t Available fluticasone 100 mcg-salmete rol 50 mcg/dose blistr powdr for inhalation INHALE 1 PUFF BY MOUTH TWICE DAILY --RINSE MOUTH AFTER USE-- active Not Available Not Available No t Available paroxetine 40 mg tablet TAKE ONE TABLET BY MOUTH EVERY DAY 12/02 completed Not Available Not Available Not Available timolol maleate 0.5 % eye drops INSTILL 1 DROP IN THE RIGHT EYE TWICE DAILY DIRECTED 12/02 completed Not Available Not Available Not Available ondansetron 4 mg disintegrat ing tablet DISSOLVE ONE TABLET in MOUTH EVERY 8 HOURS NEEDED FOR NAUSEA AND VOMITING active Not Available Not Available No t Available lamotrigine 100 mg tablet TAKE 1 AND 1/2 TABLET BY MOUTH TWICE DAILY FOR COMPLEX PARTIAL SEIZURE active Not Available Not Available No t Available Ventolin HFA 90 mcg/actuati on aerosol inhaler active Not Available Not Available Not Available cholecalcif nahum (vitamin D3) 25 mcg (1,000 unit) capsule TAKE ONE CAPSULE BY MOUTH EVERY DAY active Not Available Not Available No t Available memantine 10 mg tablet TAKE ONE TABLET BY MOUTH TWICE DAILY DIRECTED FOR memory active Not Available Not Available No t Available aripiprazol e 2 mg tablet Take 1 tablet every day by oral route at bedtime for 90 days, for mood. 2023 active Not Available Not Available Not Avai lable desvenlafax ine succinate ER 50 mg tablet,exte nded release 24 hr TAKE ONE TABLET BY MOUTH EVERY DAY DIRECTED FOR depressio n 2024 active Not Available Not Available Not Avai lable Entresto 24 mg-26 mg tablet TAKE ONE TABLET BY MOUTH TWICE DAILY active Not Available Not Available No t Available Vitals Date Recorded Body height Body mass index (BMI) Body weight Heart rate Oxygen saturation Oxygen saturation in Arterial blood by Pulse oximetry Systolic blood pressure Diastolic blood pressure Provider Name and Address Organization Details Last Updated DateTime 4 177.8 cm 24.4 kg/m2 14027.7 g 50 /min 96 % 96 % 99 mm[Hg] 63 mm[Hg] Pennie Brennan [employer] 4 16:14:12 Date Recorded Body height Oxygen saturation Oxygen saturation in Arterial blood by Pulse oximetry Heart rate Systolic blood pressure Diastolic blood pressure Provider Name and Address Organization Details Last Updated DateTime 4 177.8 cm 96 % 96 % 52 /min 98 mm[Hg] 59 mm[Hg] Joann Keller [employer]. 14:39:13 Social History Question Answer Notes LastModified by Organizat ion Details LastModified Time Tobacco Smoking Status Former Smoker Pennie thrasher, [employer]. 12/03/2023 16:14:41 Do You Have An Advance Directive? No Information n ot available 12/03/2023 Is Your Home Air Conditioned? Yes Information not available 12/03/2023 Are You Blind Or Do You Have Difficulty Seeing? Yes Information n ot available 12/03/2023 What Is Your Level Of Caffeine Consumption? Moderate Information not available 12/03/2023 What Type Of Assault Boat Coxswain Do You Use? None Information not available 12/03/2023 In The 14 Days Before Symptom Onset, Have You Had Close Contact With A Laboratory-confirm ed COVID-19 While That Case Was Ill? No Information n ot available 12/03/2023 In The 14 Days Before Symptom Onset, Have You Had Close Contact With A Person Who Is Under Investigation For COVID-19 While That Person Was Ill? No Information not available 12/03/2023 Have You Been To An Area Known To Be High Risk For COVID-19? No Information not available 12/03/2023 Are You Deaf Or Do You Have Serious Difficulty Hearing? Yes Information not available 12/03/2023 What Type Of Diet Are You Following? REGULAR Information n ot available 12/03/2023 Have There Been Any Changes To Your Family Or Social Situation? No Information no t available 12/03/2023 When Did You Quit Smoking? 16+yearssince lastcigarette Information not available 12/03/2023 Are There Any Guns Present In Your Home? No Information not available 12/03/2023 Which Of Your Hands Is Dominant? Right Information n ot available 12/03/2023 Do You Have A Medical Power Of Airline Manager? No Information not available 12/03/2023 What Was The Date Of Your Most Recent Tobacco Screening? 01/14/2024 [email or web address] Information not available 01/14/2024 What Is Your Current Pack Years? 10packyears Information not available 12/03/2023 Do You Have Any Pets? Yes Information not available 12/03/2023 Do You Use Protection During Sex? No Information not available 12/03/2023 What Is Your Relationship Status? Information not available 12/03/2023 Have You Repeated Any Grades? No Information not available 12/03/2023 Do You Use Your Seat Belt Or Car Seat Routinely? Yes Information not available 12/03/2023 Are You Sexually Active? Yes Information not available 12/03/2023 Do You Have Any Siblings? Yes Information not available 12/03/2023 Do You Have Smoke And Carbon Monoxide Detectors In Your Home? Yes Information not available 12/03/2023 At What Age Did You Start Smoking Tobacco? 20 Information not available 12/03/2023 Are You Passively Exposed To Smoke? Yes Information no t available 12/03/2023 Are There Any Smokers In Your House? Yes Information not available 12/03/2023 How Much Tobacco Do You Smoke? No Information not available 12/03/2023 Do You Use Sunscreen Routinely? No Information not available 12/03/2023 Has Tobacco Cessation Counseling Been Provided? No Information not available 12/03/2023 On What Date Was Tobacco Cessation Counseling Provided? 12/03/2023 Information not available 12/03/2023 Have You Recently Traveled Abroad? No Information not available 12/03/2023 Do You Have Difficulty Walking Or Climbing Stairs? Yes Information not available 12/03/2023 Are You Currently In School? No Information not available 12/03/2023 Do You Have Any Dietary Restrictions? No Information not available 12/03/2023 Sex: Male Functional Status Question Answer Note LastModified by Organizat ion Details LastModified Time Do you use any illicit or recreational drugs? No Information not available 12/03/2023 Do you or have you ever used any other forms of tobacco or nicotine? No Information not available 12/03/2023 What is your level of alcohol consumption? None Information not available 12/03/2023 Are you currently employed? No Information not available 12/03/2023 Do you have transportation difficulties? No Information not available 12/03/2023 Are you able to walk? NOINDWHEEL Information not available 12/03/2023 Do you have difficulty doing errands alone? Yes Information not available 12/03/2023 Are you able to care for yourself? Yes Information n ot available 12/03/2023 Do you have difficulty dressing or bathing? Yes Information not available 12/03/2023 What is your exercise level? None Information not available 12/03/2023 Mental Status Question Answer Note LastModified by Organization D etails LastModified Time Do you have difficulty concentrating, remembering or making decisions? Yes Information no t available 12/03/2023 Are you or have you been involved with bullying? No Information not available 12/03/2023 Family History Relationship Description Onset Age of this Age Resolved Age Notes LastModified by Organization Details LastModified Time Mother Diabetes mellitus Not available 2023 16:14:40 Brother Hypercholest erolemia Not available 2023 16:14:40 Brother Heart disease Not available 2023 16:14:40 Sister Hypercholest erolemia Not available 2023 16:14:40 Sister Heart disease Not available 2023 16:14:40 Sister Diabetes mellitus Not available 2023 16:14:40 Father Hypercholest erolemia Not available 2023 16:14:40 Father Heart disease Not available 2023 16:14:40 Medical History Condition Response Coronary Artery Disease Y Other N Gout N Kidney Stones N Blood Diseases N Hyperthyroidism N Breast Cancer N Blood Transfusion N Emergency room visit since last appointm ent. N Hypothyroidism N Lung Disease N COPD N Dermatologic Disorders N Depression N Defects or Inherited Disease N Developmental or Behavioral Disorders N Breast Problem N Difficulty Swallowing N Anesthesia Complications N History of STI N Meniere's disease N Anxiety Disorder N Muscle, Joint, or Bone Problems N Autoimmune disease N Vision or Eye Problems Y Arthritis N Polyps N Infertility N Mental Disorder N Congenital Anomalies N Acid Reflux (GERD) N Cancer N Stroke N Neurologic/Epilepsy N Endometriosis N Bladder or Kidney Problems N High Cholesterol N Liver Disease N Psychiatric/Mental Health Condition N Organ Transplant N Dialysis N Fibromyalgia N Schizophrenia N Headaches N Kidney Disease N Allergies/Hayfever N Heart Problems N Ear or Hearing Problems N Hospitalizations N Learning Disorder N Artificial Joints N Thyroid Problems N GI Problems N Acne N ADD/ADHD N Eating Disorder N Anemia N Constipation N Mental Illness N Ovarian Cancer N Diabetes N Bedwetting N Hepatitis/Liver Disease N Tuberculosis N Eczema N Diverticulitis N Abuse/Domestic Violence N Asthma N Trauma/Violence N Substance Abuse N Reflux/GERD N Depression/ depression N Hepatitis N Heart Disease Y Pulmonary Embolism N Tourette Syndrome N Pre-Eclampsia N Hypertension N Chronic Ear Infections N Osteoporosis N Chicken Pox N Autism Spectrum Disorder (ASD) N Thrombophilias N Past Encounters Encounter ID Performer Location Encounter Start Date Encounter Closed Date Diagnosis/Indication Diagnosis SNOMED-CT Code Diagnosis ICD10 Code Diagnosis Note [id number] PORFIRIO Doss [facility] [address] [place] [address] 12/03/2023 15:59:08 12/03/2023 16:58:23 Depressive disorder 61610442 F32.A Anxiety 46241670 F41.9 Vitamin B1 2 deficiency (non anemic) 57998223 E53.8 Insomnia 447748046 G47.0 0 Congestive heart failure 51348636 I50.9 Managed by cardiology (Svitlana) Dementia 86784561 F03.90 Epilepsy 69109118 G40.90 9 Managed by neurology (Terence) [id number] PORFIRIO Doss [facility] [address] [place] [address] 01/14/2024 14:23:45 01/14/2024 15:22:27 Vitamin B12 deficiency (non anemic) 22530832 E53.8 Difficulty sleeping 3013 03259 Z72.820 Try taking Abilify in the am and see if that helps his sleep Health Concerns Section Related Observation LastModified by Organization Detai ls LastModified Time None Recorded Concern Status LastModified by Organization Details LastModified Time None Recorded Advance Directives Directive N: Payers Insurance Date Sequence Insurance Name Policy Number Policy Loco Covered Member ID Loco Member ID Guarantor Name 01/11/2024 1 MEDICARE [place]: [facility] [employer] [facility] Kalia Magdaleno [id number] Kalia Logan 11/22/2023 2 [employer] Kalia Rasta [id number] Kalia Javede Notes Date Note Type Note Provider Name and Address Organization Details Recorded Time 12/03/2023 text/html Patient presents to establish care.Patient has history of anxiety/depressio n. Also has history of insomnia. He is doing fairly okay. He and his state that his depression is worse because he has lost his ability to do the things that he really enjoys.History of hypertension. He denies headache, chest pain, vertigo, dyspnea.History of HLD. Takes Lipitor QHS.History of CHF. Controlled by [employer].History of epilepsy. Well managed by Terence. PORFIRIO Doss [address] [place] [address], [address], [employer] 12/05/2023 15:53:49 01/14/2024 text/html Patient presents for followup. He and his state that he is doing very well. His only complaint is that of not sleeping very long now. He only sleeps for 4-5 hours. PORFIRIO Doss [address] [place] [address], [address], [employer] 01/14/2024 15:50:53
--- OUTSIDE RECORDS SUMMARY | 2024-07-27 15:01 | XMS_ITS | Encounter Summary ---
Author Organization [employer] Address [address] [place] [address] Care Team Providers Care Logging Equipment Mechanic Name Role Phone Tomy Witt MD Primary Care Provider [phone] Encounter Details Date Type Department Care Team (Late st Contact Info) Description 08/26/2021 Transcribed Document [facility] Medicine [address] [place] [address] ProviderGarrison MD [address] [place] [address] Social History Tobacco Use Types Packs/Day Years Used Date Smoking Tobacco: Never Assessed Sex and Gender Information Value Date Recorded Sex Assigned at Male 11/17/2021 5:57 PM CDT Legal Sex Male 1:42 PM CDT Gender Identity Male 11/17/2021 5:57 PM CDT Sexual Orientation Not on file documented as of this encounter Miscellaneous Notes * Cerner Conversion Note - Garrison ProviderMD - 08/26/2021 5:55 PM CDT Spiritual Care Short Form Entered On: 08/26/2021 17:55 EDT Performed On: 08/26/2021 17:55 EDT by Bret Dsouza Chaplain Non Cert General Information, Spiritual Care Spiritual Care Referred by : Nurse Reason for Visit : Initial Ethics Consult Received : No Ministry Provided to : Patient, Family/Significant other Intervention/Comment/Summary Points : Pt requesting meal voucher for . Confirmed with pt's nurse. Dropped off meal voucher to pt's room. Bret Dsouza Chaplain Non Cert - 08/26/2021 17:54 EDT Electronically signed by [facility], [facility] Conversion [employer] at 06/07/2022 12:15 AM CDT documented in this encounter Plan of Treatment Not on file documented as of this encounter Visit Diagnoses Not on filedocumented in this encounter Care Teams Logging Equipment Mechanic Relationship Specialty Start Date End Date Tomy Witt MD [address] [place] [address] PCP - General Family Medicine 01/09/22 documented as of this encounter
--- OUTSIDE RECORDS SUMMARY | 2024-07-27 15:01 | XMS_ITS | Encounter Summary ---
Author Organization [employer] Address [address] [place] [address] Care Team Providers Care Certified Emergency Vehicle Technician Name Role Phone Tomy Witt MD Primary Care Provider [phone] Encounter Details Date Type Department Care Team (Late st Contact Info) Description 08/28/2021 Transcribed Document [facility] [place] Family Medicine [address] [place] [address] ProviderGarrison MD [address] [place] [address] Social History Tobacco Use Types Packs/Day Years Used Date Smoking Tobacco: Never Assessed Sex and Gender Information Value Date Recorded Sex Assigned at Male 11/17/2021 5:57 PM CDT Legal Sex Male 1:42 PM CDT Gender Identity Male 11/17/2021 5:57 PM CDT Sexual Orientation Not on file documented as of this encounter Miscellaneous Notes * Cerner Conversion Note - Garrison ProviderMD - 08/28/2021 12:52 PM CDT Patient Education Materials Follows: Seizure, Adult A seizure is a sudden burst of abnormal electrical and chemical activity in the brain. Seizures usually last from 30 seconds to 2 minutes. What are the causes? Common causes of this condition include: ??? Fever or infection. ??? Problems that affect the brain. These may include: ? A brain or head injury. ? Bleeding in the brain. ? A brain tumor. ??? Low levels of blood sugar or salt. ??? Kidney problems or liver problems. ??? Conditions that are passed from parent to child (are inherited). ??? Problems with a substance, such as: ? Having a reaction to a drug or a medicine. ? Stopping the use of a substance all of a sudden (withdrawal). ??? A stroke. ??? Disorders that affect how you develop. Sometimes, the cause may not be known. What increases the risk? Having someone in your family who has epilepsy. In this condition, seizures happen again and again over time. They have no clear cause. ??? Having had a tonic?clonic seizure before. This type of seizure causes you to: ? Tighten the muscles of the whole body. ? Lose consciousness. ??? Having had a head injury or strokes before. ??? Having had a lack of oxygen at . What are the signs or symptoms? There are many types of seizures. The symptoms vary depending on the type of seizure you have. Symptoms during a seizure ??? Shaking that you cannot control (convulsions) with fast, jerky movements of muscles. ??? Stiffness of the body. ??? Breathing problems. ??? Feeling mixed up (confused). ??? Staring or not responding to sound or touch. ??? Head nodding. ??? Eyes that blink, flutter, or move fast. ??? Drooling, grunting, or making clicking sounds with your mouth ??? Losing control of when you pee or poop. Symptoms before a seizure ??? Feeling afraid, nervous, or worried. ??? Feeling like you may vomit. ??? Feeling like: ? You are moving when you are not. ? Things around you are moving when they are not. ??? Feeling like you saw or heard something before (d?j? vu). ??? Odd tastes or smells. ??? Changes in how you see. You may see flashing lights or spots. Symptoms after a seizure ??? Feeling confused. ??? Feeling sleepy. ??? Headache. ??? Sore muscles. How is this treated? If your seizure stops on its own, you will not need treatment. If your seizure lasts longer than 5 minutes, you will normally need treatment. Treatment may include: ??? Medicines given through an IV tube. ??? Avoiding things, such as medicines, that are known to cause your seizures. ??? Medicines to prevent seizures. ??? A device to prevent or control seizures. ??? Surgery. ??? A diet low in carbohydrates and high in fat (ketogenic diet). Follow these instructions at home: Medicines ??? Take wycr-lih-upemlkn and prescription medicines only as told by your doctor. ??? Avoid foods or drinks that may keep your medicine from working, such as alcohol. Activity ??? Follow instructions about driving, swimming, or doing things that would be dangerous if you had another seizure. Wait until your doctor says it is safe for you to do these things. ??? If you live in the [place] ask your local department of [employer] when you can drive. ??? Get a lot of rest. Teaching others ??? Teach friends and family what to do when you have a seizure. They should: ? Help you get down to the ground. ? Protect your head and body. ? Loosen any clothing around your neck. ? Turn you on your side. ? Know whether or not you need emergency care. ? Stay with you until you are better. ??? Also, tell them what not to do if you have a seizure. Tell them: ? They should not hold you down. ? They should not put anything in your mouth. General instructions ??? Avoid anything that gives you seizures. ??? Keep a seizure diary. Write down: ? What you remember about each seizure. ? What you think caused each seizure. ??? Keep all follow-up visits. Contact a doctor if: ??? You have another seizure or seizures. Call the doctor each time you have a seizure. ??? The pattern of your seizures changes. ??? You keep having seizures with treatment. ??? You have symptoms of being sick or having an infection. ??? You are not able to take your medicine. Get help right away if: ??? You have any of these problems: ? A seizure that lasts longer than 5 minutes. ? Many seizures in a row and you do not feel better between seizures. ? A seizure that makes it harder to breathe. ? A seizure and you can no longer speak or use part of your body. ??? You do not wake up right after a seizure. ??? You get hurt during a seizure. ??? You feel confused or have pain right after a seizure. These symptoms may be an emergency. Get help right away. Call your local emergency services (911 in the [place] ??? Do not wait to see if the symptoms will go away. ??? Do not drive yourself to the hospital. Summary ??? A seizure is a sudden burst of abnormal electrical and chemical activity in the brain. Seizures normally last from 30 seconds to 2 minutes. ??? Causes of seizures include illness, injury to the head, low levels of blood sugar or salt, and certain conditions. ??? Most seizures will stop on their own in less than 5 minutes. Seizures that last longer than 5 minutes are a medical emergency and need treatment right away. ??? Many medicines are used to treat seizures. Take bglx-wpy-kzgqbty and prescription medicines only as told by your doctor. This information is not intended to replace advice given to you by your health care provider. Make sure you discuss any questions you have with your health care provider. Document Revised: 08/12/2020 Document Reviewed: 08/12/2020 [employer] Patient Education ? 2020 [employer]. Electronically signed by Kristy Richardson Conversion Aerospace Engineer Officer Armament Cerner at 06/07/2022 12:11 AM CDT documented in this encounter Plan of Treatment Not on file documented as of this encounter Visit Diagnoses Not on filedocumented in this encounter Care Teams Certified Emergency Vehicle Technician Relationship Specialty Start Date End Date Tomy Witt MD [address] [place] [id number] PCP - General Family Medicine 01/09/22 documented as of this encounter
--- OUTSIDE RECORDS SUMMARY | 2024-07-27 15:01 | XMS_ITS | Encounter Summary ---
Author Organization [employer] Address [address] [place] [address] Care Team Providers Care Reimbursement Manager Name Role Phone Tomy Witt MD Primary Care Provider Encounter Details Date Type Department Care Team (Late st Contact Info) Description 08/27/2021 Transcribed Document [facility] [place] [address] [place] [address] ProviderGarrison MD [address] [place] [address] Social History Tobacco Use Types Packs/Day Years Used Date Smoking Tobacco: Never Assessed Sex and Gender Information Value Date Recorded Sex Assigned at Male 11/17/2021 5:57 PM CDT Legal Sex Male 1:42 PM CDT Gender Identity Male 11/17/2021 5:57 PM CDT Sexual Orientation Not on file documented as of this encounter Miscellaneous Notes * Cerner Conversion Note - Garrison ProviderMD - 08/27/2021 5:00 AM CDT Chart Check - Review Order Profile Entered On: 08/27/2021 4:29 EDT Performed On: 08/27/2021 5:00 EDT by Romelia Walsh RN-PATIENT CARE BEDSIDE NON-EXEMPT Chart Check Powerplans Initiated/Discontinued as Appropriate : Yes All Active Orders Reviewed : Yes Romelia Walsh RN-PATIENT CARE BEDSIDE NON-EXEMPT - 08/27/2021 4:29 EDT Electronically signed by Debra [facility] Conversion Surgical Corsetier Cerner at 06/07/2022 12:23 AM CDT documented in this encounter Plan of Treatment Not on file documented as of this encounter Visit Diagnoses Not on filedocumented in this encounter Care Teams Reimbursement Manager Relationship Specialty Start Date End Date Tomy Witt MD [address] [place] [id number] PCP - General Family Medicine 01/09/22 documented as of this encounter
--- OUTSIDE RECORDS SUMMARY | 2024-07-27 15:01 | XMS_ITS | Encounter Summary ---
Author Organization [employer] Address [address] [place] [address] Care Team Providers Care Geophysical Party Chief Name Role Phone Tomy Witt MD Primary Care Provider [phone] Encounter Details Date Type Department Care Team (Late st Contact Info) Description 08/26/2021 Transcribed Document [facility] [place] Family Medicine [address] [place] [address] ProviderGarrison MD [address] [place] [address] Social History Tobacco Use Types Packs/Day Years Used Date Smoking Tobacco: Never Assessed Sex and Gender Information Value Date Recorded Sex Assigned at Male 11/17/2021 5:57 PM CDT Legal Sex Male 1:42 PM CDT Gender Identity Male 11/17/2021 5:57 PM CDT Sexual Orientation Not on file documented as of this encounter Miscellaneous Notes * Cerner Conversion Note - Garrison ProviderMD - 08/26/2021 1:18 PM CDT Neurodiagnostics Event Note Entered On: 08/26/2021 13:22 EDT Performed On: 08/26/2021 13:18 EDT by Ravindra Moore, Neurodiagnostic Tech Neurodiagnostics Event Note Neurodiagnostic Event Date/Time : 08/26/2021 13:21 EDT Neurodiagnostic Event Location : Neurodiagnostic department Neurodiagnostic Event Details : Procedure completed Ravindra Moore, Neurodiagnostic Tech - 08/26/2021 13:18 EDT documented in this encounter Plan of Treatment Not on file documented as of this encounter Visit Diagnoses Not on filedocumented in this encounter Care Teams Geophysical Party Chief Relationship Specialty Start Date End Date Tomy Witt MD [address] [place], [place] [phone] PCP - General Family Medicine 01/09/22 documented as of this encounter
--- OUTSIDE RECORDS SUMMARY | 2024-07-27 15:01 | XMS_ITS | Encounter Summary ---
Author Organization [facility] Address [address] [place] [address] Care Team Providers Care Production Line Name Role Phone Tomy Witt MD Primary Care Provider [phone] Ravinder Wren DO Primary Care Provider [phone] Hattie Dorman Primary Care Provider [phone] Reason for Visit * Reason Comments Med Refill Encounter Details Date Type Department Care Team (Late st Contact Info) Description 10/15/2022 Refill [facility] Maramec Paul [address] [facility] [place] [address] Annalisa Collier APRN [address] [place] [address] Social History Tobacco Use Types Packs/Day Years Used Date Smoking Tobacco: Former Cigarettes 1.5 15 1 960 - 1974 Passive Smoke Exposure: Past Smokeless Tobacco: Never Alcohol Use Standard Drinks/Week Comments No 0 (1 standard drink = 0.6 oz pur e alcohol) PHQ-2 Answer Date Recorded Patient Health Questionnaire-2 Score 0 07/20/2021 Sex and Gender Information Value Date Recorded Sex Assigned at Male 03/10/2021 1:02 AM EST Legal Sex Male 6:32 PM EDT Gender Identity Male 03/10/2021 1:02 AM EST Sexual Orientation Straight 03/10/2021 1: 02 AM EST documented as of this encounter Plan of Treatment Upcoming Encounters Date Type Department Care Team (Late st Contact Info) Description 09/17/2024 11:40 AM EDT Office Visit [facility] Maramec Paul [address] [place] [address] Cal Florentino MD [address] [place] [address] 11/30/2024 11:20 AM EDT Office Visit [facility] [address] [place] [address] Rajesh Fisher MD [address] [place] [phone] documented as of this encounter Visit Diagnoses Not on filedocumented in this encounter Additional Health Concerns Assessment Noted Time A fall risk assessment has been complete d for the patient 09/27/2022 11:06 AM EDT documented as of this encounter Care Teams Production Line Relationship Specialty Start Date End Date Tomy Witt MD [address] [place] [address] PCP - General 07/01/20 03/27/23 Ravinder Wren DO [address] [place], [place] [id number] PCP - General 03/28/23 11/06/23 Hattie Dormna PA [address] [facility] [place] [address] PCP - General 11/07/23 documented as of this encounter
--- OUTSIDE RECORDS SUMMARY | 2024-07-27 15:01 | XMS_ITS | Encounter Summary ---
Author Organization [employer] Address [address] [place] [address] Care Team Providers Care Turret Lathe Machinist Name Role Phone Tomy Witt MD Primary Care Provider [phone] Encounter Details Date Type Department Care Team (Late st Contact Info) Description 08/26/2021 Transcribed Document [facility] [place] Family Medicine [address] [place] [address] ProviderGarrison MD [address], [place] [id number] Social History Tobacco Use Types Packs/Day Years Used Date Smoking Tobacco: Never Assessed Sex and Gender Information Value Date Recorded Sex Assigned at Male 11/17/2021 5:57 PM CDT Legal Sex Male 1:42 PM CDT Gender Identity Male 11/17/2021 5:57 PM CDT Sexual Orientation Not on file documented as of this encounter Miscellaneous Notes * Cerner Conversion Note - Garrison ProviderMD - 08/26/2021 5:00 PM CDT Chart Check - Review Order Profile Entered On: 08/26/2021 18:19 EDT Performed On: 08/26/2021 17:00 EDT by Vicky Waite, RN Chart Check Powerplans Initiated/Discontinued as Appropriate : Yes All Active Orders Reviewed : Yes Vicky Waite, RN - 08/26/2021 18:19 EDT documented in this encounter Plan of Treatment Not on file documented as of this encounter Visit Diagnoses Not on filedocumented in this encounter Care Teams Turret Lathe Machinist Relationship Specialty Start Date End Date Tomy Witt MD [address] [place], [place] [phone] PCP - General Family Medicine 01/09/22 documented as of this encounter
--- OUTSIDE RECORDS SUMMARY | 2024-07-27 15:01 | XMS_ITS | Encounter Summary ---
Author Organization [email or web address] Address [address] [place] [address] Care Team Providers Care Channel Rougher Name Role Phone Tomy Witt MD Primary Care Provider Encounter Details Date Type Department Care Team (Late st Contact Info) Description 08/26/2021 Transcribed Document [facility] [place] Family Medicine [address] [place] [address] ProviderGarrison MD [address] [place] [address] Social History Tobacco Use Types Packs/Day Years Used Date Smoking Tobacco: Never Assessed Sex and Gender Information Value Date Recorded Sex Assigned at Male 11/17/2021 5:57 PM CDT Legal Sex Male 1:42 PM CDT Gender Identity Male 11/17/2021 5:57 PM CDT Sexual Orientation Not on file documented as of this encounter Miscellaneous Notes * Cerner Conversion Note - Garrison Louie MD - 08/26/2021 10:07 AM CDT Education-(VTE) / (DVT) Entered On: 08/26/2021 10:44 EDT Performed On: 08/26/2021 10:07 EDT by Vicky Waite RN Education Topics: VTE/DVT Education Topics: VTE/DVT Activity Limitations/Expectations : Verbalizes understanding Antiembolic hose : Verbalizes understanding VTE/DVT prophylaxis : Verbalizes understanding Foot Pumps : Verbalizes understanding Medications : Verbalizes understanding Sequential Compression Device : Verbalizes understanding Smoking Cessation : Verbalizes understanding Risk for developing a VTE : Verbalizes understanding Signs and symptoms of a VTE : Verbalizes understanding Treatment/prophylaxis for VTE : Verbalizes understanding Encourage early ambulation : Verbalizes understanding VTE/DVT, Other : Verbalizes understanding Vicky Waite RN - 08/26/2021 10:44 EDT documented in this encounter Plan of Treatment Not on file documented as of this encounter Visit Diagnoses Not on filedocumented in this encounter Care Teams Channel Rougher Relationship Specialty Start Date End Date Tomy Witt MD [address] [place] [address] PCP - General Family Medicine 01/09/22 documented as of this encounter
--- OUTSIDE RECORDS SUMMARY | 2024-07-27 15:01 | XMS_ITS | Encounter Summary ---
Author Organization [facility] Address [address] [facility] [facility] [place] [address] Care Team Providers Care Pigment Processor Name Role Phone Hattie Dorman Primary Care Provider [phone] Encounter Details Date Type Department Care Team (Latest Contact Info) Description 06/29/2024 Travel Social History Tobacco Use Types Packs/Day Years [...] Description 09/17/2024 11:40 AM EDT Office Visit [facility] Novice Paul [address] [facility] [place] [address] Cal Florentino MD [address] [place] [phone] 11/30/2024 11:20 AM EDT Office Visit [facility] [address] [place] [address] Rajesh Fisher MD [address] [address] documented as of this encounter Visit Diagnoses Not on filedocumented in this encounter Additional Health Concerns Assessment Noted Time A fall risk assessment has been complete d for the patient 06/29/2024 10:51 AM EDT A Body Mass Index follow-up plan has been documented for the patient 06/29/2024 11:58 AM EDT documented as of this encounter Care Teams Pigment Processor Relationship Specialty Start Date End Date Hattie Dorman PA [address] [place] [address] PCP - General 11/07/23 documented as of this encounter
--- OUTSIDE RECORDS SUMMARY | 2024-07-27 15:01 | XMS_ITS | Encounter Summary ---
Author Organization [employer] Address [address] [address] Care Team Providers Care Sqe Name Role Phone Tomy Witt MD Primary Care Provider Encounter Details Date Type Department Care Team (Late st Contact Info) Description 08/26/2021 Transcribed Document [facility] [place] Family Medicine [address] [place] [address] ProviderGarrison MD [address] [place] [address] Social History Tobacco Use Types Packs/Day Years Used Date Smoking Tobacco: Never Assessed Sex and Gender Information Value Date Recorded Sex Assigned at Male 11/17/2021 5:57 PM CDT Legal Sex Male 1:42 PM CDT Gender Identity Male 11/17/2021 5:57 PM CDT Sexual Orientation Not on file documented as of this encounter Miscellaneous Notes * Cerner Conversion Note - Garrison ProviderMD - 08/26/2021 9:14 AM CDT Admission History, Adult Entered On: 08/26/2021 9:17 EDT Performed On: 08/26/2021 9:14 EDT by Vicky Waite RN Advance Directive Patient has Advance Directive *Q : No, patient refuses Advance Directive information Vicky Waite RN - 08/26/2021 9:14 EDT Anesthesia/Transfusion History Family History of Anesthesia Reaction : No prior transfusion(s) Transfusion History : No prior anesthesia Family History of Anesthesia Reaction : None Vicky Waite RN - 08/26/2021 9:14 EDT Functional Assessment Living Situation : Home Patient Lives With : Spouse Current Home Treatments : CPAP Vicky Waite RN - 08/26/2021 9:14 EDT General Info Want Family/Rep/Phys Notified of Admit : No Emergency Contact #1 : Kaylah Magdaleno Emergency Contact #1 Emergency Contact #1 Relationship : Emergency Contact #2 : N/A Emergency Contact #2 Phone Number : . Emergency Contact #2 Relationship : . Primary Language : Martiniquais Communication Barrier : None Latent Print Examiner Needed : No Vicky Waite RN - 08/26/2021 9:14 EDT Fall Risk Scales ABCs Fall Injury Risk Identification : Coagulation ABC Fall Injury Risk : Moderate to high injury risk Injury Moderate to High Risk Interventions : Video observation in place ABURTO Hx Falls Immediate/Within 3 Months : No Aburto Secondary Diagnosis : No MICHAELA Use of Ambulatory Aid : Bed rest/Nurse assist ABURTO IV Therapy or IV Access : Yes Michaela Gait/Transferring : Normal, bedrest, immobile Aburto Mental Status : Oriented to own ability Aburto Fall Risk Score : 20 ABURTO Fall Scale Risk Level : 0-24 Low Risk [place] Fall Interventions : Adequate lighting, Assistive devices within reach, Bed in low position, Call device within reach, Fall prevention handout/education per facility policy, Frequent orientation to call device, Frequent orientation to surroundings, Hourly comfort/safety rounds, Non-slip footwear, Personal items within reach, Reinforced to call for assistance before getting out of bed, Room free of clutter/spills, Upper side-rails up, Wheels locked, Wires/Cords secured Fall Risk Scale Calc Temp : 0 Vicky Waite RN - 08/26/2021 9:14 EDT Health Histories Smoking Status : Former smoker, quit more than 30 days ago Smokeless Tobacco Status : Never Vicky Waite RN - 08/26/2021 9:14 EDT Social History (As Of: 08/26/2021 09:17:09 EDT) Height and Weight, Clinical Dosing Height Source : Stated Height Entry Format : [place] Height, Feet : 6 ft(Converted to: 183 cm, 72 Inch) Height, Inches : 0 Inch(Converted to: 0 ft 0 Inch, 0.00 cm) Clinical Height : 182.88 cm Weight Source : Bed scale Weight Entry Format : [place] Clinical Dosing Weight : 77.27 kg Weight, Pounds : 170 lb Body Surface Area (BSA) : 1.99 m2 Body Mass Index : 23.1 kg/m2 [place] Body Weight : 77 kg Vicky Waite RN - 08/26/2021 9:14 EDT Infectious Disease History Does patient have symptoms of COVID-19? : No Tested for COVID19 in the past 14 days : No, Patient stated Does the Patient state known exposure to a COVID-19 positive case in the last 14 days? : No Patient Vaccinated for COVID-19 : Fully vaccinated Vicky Waite RN - 08/26/2021 9:14 EDT Infectious Disease Risk Screening Grid Cough < 2 wks of unknown origin : NO Cough > 2 weeks : NO Blood in Sputum : NO Fever or self-reported Fever : NO Rash of unknown origin : NO Headache : NO Stiff neck : NO Night Sweats : NO Unexplained Weight Loss : NO Diarrhea (3 episode per day) : NO Vicky Waite RN - 08/26/2021 9:14 EDT Physical contact outside [place] in the last 30 days : No Hospitalized in Foreign Country : No Infectious Disease History : None INF Disease TB Screening Calc : 0 INF Disease Recent Travel Calc : 0 Vicky Waite RN - 08/26/2021 9:14 EDT Influenza Vaccine Asmt, Adult Previous Vaccines from Immunization Schedule : No qualifying data available. Influenza Immunization, Current Season : Yes Vicky Waite RN - 08/26/2021 9:14 EDT Pneumococcal Vaccine Previous Vaccines from Immunization Schedule : No qualifying data available. Pneumonia Immunization Received : Yes Vicky Waite RN - 08/26/2021 9:14 EDT Order Details Order Detail : N/A Patient Needs Meds Crushed/Liquid : No Vicky Waite RN - 08/26/2021 9:14 EDT Nutrition History Eating Poorly Due to Decreased Appetite : No Unplanned Weight Loss in Past 3-6 Months : No Malnutrition Screening Tool Total(mal) : 0 Malnutrition Screening Tool Risk Level : Patient not at risk Vicky Waite RN - 08/26/2021 9:14 EDT [place] Suicide Severity Rating Scale (C-SSRS) CSSRS Past Month Wish to be : No CSSRS Past Month Suicidal Thoughts : No CSSRS Lifetime Suicide Behavior : No Suicide Severity Rating Score : 0 Suicide Severity Rating : No Additional Care Required at this time Vicky Waite RN - 08/26/2021 9:14 EDT Psychosocial History Currently in Unsafe Situation : No Vicky Waite RN - 08/26/2021 9:14 EDT Sleep Apnea Risk Assmt BiPAP/CPAP Ordered for Home Use : Yes Hx of Obstructive Sleep Apnea Diagnosis : Yes BiPAP/CPAP Used at Home : Yes Age over 50 Years Old : Yes Gender Male : Yes Vicky Waite RN - 08/26/2021 9:14 EDT Valuables and Belongings Valuables and Belongings : Clothing, Personal items, Assistive devices, Medications Clothing : Common streetwear, Sleepwear Clothing Disposition : Bedside, With patient, Declines to send to security/safe Personal Items : Wallet Personal Items Disposition : Bedside, With patient, Declines to send to security/safe Assistive Devices From Home : Cane Assistive Device Disposition : Bedside, With patient, Declines to send to security/safe Medication Disposition : Bedside, With patient, Declines to send to security/safe Medication Brought With Patient : Yes Vicky Waite RN - 08/26/2021 9:14 EDT Electronically signed by Kristy Richardson Conversion Health Care Social Worker Cerner at 06/07/2022 12:07 AM CDT documented in this encounter Plan of Treatment Not on file documented as of this encounter Visit Diagnoses Not on filedocumented in this encounter Care Teams Sqe Relationship Specialty Start Date End Date Tomy Witt MD [address] [place] [address] PCP - General Family Medicine 01/09/22 documented as of this encounter
--- OUTSIDE RECORDS SUMMARY | 2024-07-27 15:01 | XMS_ITS | Encounter Summary ---
Author Organization [employer] Address [address] [place] [address] Care Team Providers Care General Worker Name Role Phone Tomy Witt MD Primary Care Provider Encounter Details Date Type Department Care Team (Late st Contact Info) Description 08/27/2021 Transcribed Document [facility] [place] [address] [place] [address] ProviderGarrison MD [address] [id number] Social History Tobacco Use Types Packs/Day Years Used Date Smoking Tobacco: Never Assessed Sex and Gender Information Value Date Recorded Sex Assigned at Male 11/17/2021 5:57 PM CDT Legal Sex Male 1:42 PM CDT Gender Identity Male 11/17/2021 5:57 PM CDT Sexual Orientation Not on file documented as of this encounter Miscellaneous Notes * Cerner Conversion Note - Garrison ProviderMD - 08/27/2021 1:50 PM CDT UM Authorization Entered On: 08/27/2021 13:50 EDT Performed On: 08/27/2021 13:50 EDT by YIFAN HERNANDEZ RN Primary Insurance Authorization Authorization and Policy Numbers : Insurance 1 Health Plan: MEDICARE Policy Number: [id number] Authorization Number: Insurance Primary Name : MEDICARE Policy Number: [id number] Authorized Service Begin Date-Primary : 08/26/2021 EDT Historical Authorization Comments-Primary : No Authorization Comments Found YIFAN HERNANDEZ, CHRISTINE - 08/27/2021 13:50 EDT Electronically signed by Debra [facility] Conversion Flex O Writer Operator Cerner at 06/07/2022 12:06 AM CDT documented in this encounter Plan of Treatment Not on file documented as of this encounter Visit Diagnoses Not on filedocumented in this encounter Care Teams General Worker Relationship Specialty Start Date End Date Tomy Witt MD [address] [place] [address] PCP - General Family Medicine 01/09/22 documented as of this encounter
--- OUTSIDE RECORDS SUMMARY | 2024-07-27 15:01 | XMS_ITS | Referral Summary ---
Author Organization [employer] Address [address] [place] [address] Care Team Providers Care Engine Dispatcher Name Role Phone Tomy Witt MD Primary Care Provider [phone] Allergies Active Allergy Reactions Criticality Noted Date [...] Next Due Pneumococcal Conjugate (Prevnar) 13-Valent 09/10 Social History Tobacco Use Types Packs/Day Years [...] Date Renan rded Speak language other than Bulgarian at home Not on file 03/08/2023 Want [...] 01/09/2022 1:45 PM EST Plan of Treatment Not on file Insurance MEDICARE PART A B Care Teams Engine Dispatcher Relationship Specialty Start Date End Date Tomy Witt MD [address] [place] [address] [place] [address] PCP - General Family Medicine 01/09/22
--- OUTSIDE RECORDS SUMMARY | 2024-07-27 15:01 | XMS_ITS | Encounter Summary ---
Author Organization [employer] Address [address] [place] [address] Care Team Providers Care Commissioning Engineer Name Role Phone Tomy Witt MD Primary Care Provider [phone] Encounter Details Date Type Department Care Team (Late st Contact Info) Description 08/28/[address] [facility] [place] [address] [place] [address] ProviderGarrison MD [address] [place] [address] Social History Tobacco Use Types Packs/Day Years Used Date Smoking Tobacco: Never Assessed Sex and Gender Information Value Date Recorded Sex Assigned at Male 11/17/2021 5:57 PM CDT Legal Sex Male 1:42 PM CDT Gender Identity Male 11/17/2021 5:57 PM CDT Sexual Orientation Not on file documented as of this encounter Miscellaneous Notes * Cerner Conversion Note - Historical ProviderMD - 08/28/2021 12:52 PM CDT Stroke/Warfarin Instructions Entered On: 08/28/2021 12:53 EDT Performed On: 08/28/2021 12:52 EDT by Emilie Morgan Rn Stroke/Warfarin Instructions Stroke/TIA Discharge Ins : N/A Warfarin Discharge Ins : N/A Emilie Morgan Rn - 08/28/2021 12:52 EDT documented in this encounter Plan of Treatment Not on file documented as of this encounter Visit Diagnoses Not on filedocumented in this encounter Care Teams Commissioning Engineer Relationship Specialty Start Date End Date Tomy Witt MD [address] [place], [place] [id number] PCP - General Family Medicine 01/09/22 documented as of this encounter
--- OUTSIDE RECORDS SUMMARY | 2024-07-27 15:01 | XMS_ITS | Encounter Summary ---
Author Organization [employer] Address [address] [place] [address] Care Team Providers Care Taxicab Driver Name Role Phone Tomy Witt MD Primary Care Provider [phone] Encounter Details Date Type Department Care Team (Late st Contact Info) Description 08/27/2021 Transcribed Document [facility] [place] [address] [place] [address] ProviderGarrison MD [address], [place] [address] Social History Tobacco Use Types Packs/Day Years Used Date Smoking Tobacco: Never Assessed Sex and Gender Information Value Date Recorded Sex Assigned at Male 11/17/2021 5:57 PM CDT Legal Sex Male 1:42 PM CDT Gender Identity Male 11/17/2021 5:57 PM CDT Sexual Orientation Not on file documented as of this encounter Miscellaneous Notes * Cerner Conversion Note - Garrison ProviderMD - 08/27/2021 2:00 AM CDT Vp Biology Details Entered On: 08/27/2021 4:29 EDT Performed On: 08/27/2021 2:00 EDT by Romelia Walsh RN-PATIENT CARE BEDSIDE NON-EXEMPT Order Details Transport Mode Order Detail : Stretcher/Gurney Isolation Precautions Order Detail : Standard Precautions Order Detail : N/A IV Order Detail : 1 Oxygen Order Detail : 0 Nurse Collect Order Detail : 1 Lift/Transfer : Minimal Central Line Order Detail : No Room Service : Appropriate Arterial Line : No Patient Needs Meds Crushed/Liquid : No Romelia Walsh RN-PATIENT CARE BEDSIDE NON-EXEMPT - 08/27/2021 4:29 EDT Electronically signed by Roc Richardson Conversion Assistant Professor Of Theater Cerner at 06/07/2022 12:23 AM CDT documented in this encounter Plan of Treatment Not on file documented as of this encounter Visit Diagnoses Not on filedocumented in this encounter Care Teams Taxicab Driver Relationship Specialty Start Date End Date Tomy Witt MD [address] [place] [address] PCP - General Family Medicine 01/09/22 documented as of this encounter
--- OUTSIDE RECORDS SUMMARY | 2024-07-27 15:01 | XMS_ITS | Encounter Summary ---
Author Organization [employer] Address [address] [place] [address] Care Team Providers Care Carpet Inspector Name Role Phone Tomy Witt MD Primary Care Provider Encounter Details Date Type Department Care Team (Late st Contact Info) Description 08/28/2021 Transcribed Document [facility] [place] [address] [place] [address] ProviderGarrison MD [address] [place] [address] Social History Tobacco Use Types [...] Note - Garrison Louie MD - 08/28/2021 11:00 AM CDT [address] , [place] [address] Patient Copy Patient Information: Name: KALIA MAGDALENO Current Date: 08/28/2021 11:00:17 : 1940 Patient Address: [place] [address] Patient Attending Physician: BOBBY MILLER MD-KRISTIN Primary Care Provider: NÉSTOR NOT LISTED Primary Care Provider Phone: 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 Weight on Admission: 170 lb, 0 oz Comment: Follow-up Instructions: With: Address: When: CLARICEVINCENT MILLER [address] [place] [address], [address] [place], [place] [id number] Business (1) Within 4 months Discharge Instructions: Immunizations Documented During Stay: No Immunizations Found Heart Failure Discharge Instructions (if any): Stroke Related Discharge Instructions (if any): Warfarin Related Discharge Instructions (if any): Final Medication List: [facility], [address] [place] [phone], [phone] lamoTRIgine (lamoTRIgine 100 mg oral tablet) 1 Tablet(s) Oral Two Times A Day. Start taking after you finish Lamotrigine 25 mg taper. Take 1/2 tab oral twice daily x 7 days then 1/2 tab in am and 1 tab in pm x 14 days then 1 tab oral twice daily.. Refills: 11. lamoTRIgine (lamoTRIgine 25 mg oral tablet) 1 tab oral every evening for 7 days then 1 tab oral twice daily for 7 days then 1 tab in the morning and 2 tab in the evening for 7 days. Refills: 1. Other Medications albuterol (albuterol CFC free 90 mcg/inh inhalation aerosol with adapter) 2 Puff(s) Inhalation Every 6 Hours as needed as needed for wheezing. aspirin (aspirin 81 mg oral delayed release tablet) 1 Tablet(s) Oral Every Day. atorvastatin (atorvastatin 40 mg oral tablet) 1 Tablet(s) Oral Every Day. brinzolamide ophthalmic (Azopt 1% ophthalmic suspension) 1 Drop(s) Eye Right Every Day. budesonide-formoterol (Symbicort 160 mcg-4.5 mcg/inh inhalation aerosol) 2 Puff(s) Inhalation Two Times A Day. carvedilol (carvedilol 12.5 mg oral tablet) 0.5 Tablet(s) Oral Two Times A Day. gabapentin (gabapentin 300 mg oral capsule) 1 Capsule(s) Oral At Bedtime. PARoxetine (PARoxetine 40 mg oral tablet) 1 Tablet(s) Oral Every Day. sacubitril-valsartan (Entresto 24 mg-26 mg oral tablet) 0.5 Tablet(s) Oral Two Times A Day. spironolactone (spironolactone 25 mg oral tablet) 1 Tablet(s) Oral Every Day. Patient Allergies: levETIRAcetam Medication Instructions: Take your medications faithfully. Do NOT skip medication. Do NOT stop taking medications without the direction of a physician. Carry a list of your medications with you at all times, and take this medication list with you to your first follow up visit. Report any side effects. Avoid herbal remedies unless discussed with your physician. As part of your treatment plan, your physician may have prescribed a limited course of a controlled substance. This medication may be given to help people with moderate or severe pain or for other medical conditions, but there are risks involved with treatment. Common side effects may include nausea, constipation, drowsiness, sweating, itching, dry mouth, and rash. More serious side effects may include cognitive and motor impairment, like problems with thinking, concentrating, alertness, and movement (e.g. slowed reflexes), and driving and operating heavy machinery can be dangerous. It is important for you to talk to your physician if you have these side effects or questions. These controlled substances can produce physical dependence and be habit-forming if taken for an extended period of time, which means that the body has gotten used to them and may experience withdrawal symptoms if they are abruptly stopped. Withdrawal symptoms can include runny nose, sweating, goose bumps, diarrhea, abdominal cramping, rapid heartbeat, difficulty sleeping, and nervousness. CIGARETTE SMOKING: The facts are clear, cigarette smoking will shorten your life. Smoking can cause many illnesses along the way. As a healthcare provider, we recommend that you stop smoking. Assistance with quitting is available by contacting 5-776-JHFV-NOW. This is a free resource providing counseling, support, and referral. Or you may contact your personal physician. 4 WAYS TO GET AHEAD OF SEPSIS SEPSIS is a MEDICAL EMERGENCY. Time matters! Infections put you and your family at risk for a life-threatening condition called sepsis. Sepsis is the body???s extreme response to an infection. It is life-threatening, and without timely treatment, sepsis can rapidly lead to tissue damage, organ failure, and . Sepsis happens when an infection you already have???in your skin, lungs, urinary tract or somewhere else???triggers a chain reaction throughout your body. 1 PREVENT INFECTIONS Take good care of chronic conditions. Talk to your doctor about getting the recommended vaccines. 2 PRACTICE GOOD HYGIENE Wash your hands frequently. Keep cuts or open sores clean and covered until they are healed. 3 KNOW THE SYMPTOMS Confusion or disorientation Shortness of breath High heart rate Fever, shivering, or feeling very cold Extreme pain or discomfort Clammy or sweaty skin 4 ACT FAST Get medical care IMMEDIATELY if you suspect sepsis or if you have an infection that???s not getting better or is getting worse. To learn more about sepsis and how to prevent infections, visit www.cdc.gov/sepsis. STROKE is an EMERGENCY Every Minute Counts ACT F.A.S.T! FACE ?? Facial droop ?? Uneven smile ARM ?? Arm numbness ?? Arm weakness SPEECH ?? Slurred speech ?? Difficulty speaking or understanding TIME ?? Call 911 and get to the hospital immediately Have the ambulance go to the nearest stroke center. STROKE Risk Factors High blood pressure High cholesterol Heart Disease Diabetes Smoking Heavy alcohol use Physical inactivity and obesity Atrial Fibrillation (irregular heartbeat) Family history of stroke Reminder: Be sure to sign up for the [employer] patient portal, which gives you 10/09 access to your medical information ??? including these discharge instructions ??? using your computer, smartphone, or tablet. Just go to [employer] to get started. Questions? Call . [facility] would like to thank you for allowing us to assist you with your healthcare needs. ESTHELA Matthew LARRY, (or reimbursement representative) have received the above patient education materials/instructions and have verbalized understanding: Patient Signature _ Date/Time Patient Groundskeeper Supervisor Signature (if needed) Date/Time Clinician/Hospital Groundskeeper Supervisor Signature (if needed) Date/Time Electronically signed by Interface, [facility] Conversion Spot Sprayer Cerner at 06/07/2022 12:13 AM CDT documented in this encounter Plan of Treatment Not on file documented as of this encounter Visit Diagnoses Not on filedocumented in this encounter Care Teams Carpet Inspector Relationship Specialty Start Date End Date Tomy Witt MD [address] [place] [address] [place] [address] PCP - General Family Medicine 01/09/22 documented as of this encounter
--- OUTSIDE RECORDS SUMMARY | 2024-07-27 15:02 | XMS_ITS | Encounter Summary ---
Author Organization [facility] Address [address] [place] [address] Care Team Providers Care Translator Deaf Name Role Phone Hattie Dorman Primary Care Provider Encounter Details Date Type Department Care Team (Latest Contact Info) Description 06/26/2024 Travel Social History Tobacco Use Types Packs/Day [...] Description 09/17/2024 11:40 AM EDT Office Visit [facility] [address] [facility] [place] [address] Cal Florentino MD [address] [place] [phone] 11/30/2024 11:20 AM EDT Office Visit [facility] [address] [place] [address] Rajesh Fisher MD [address] [address] documented as of this encounter Visit Diagnoses Not on filedocumented in this encounter Additional Health Concerns Assessment Noted Time A fall risk assessment has been complete d for the patient 01/27/2024 11:24 AM EST A Body Mass Index follow-up plan has been documented for the patient 01/27/2024 12:42 PM EST documented as of this encounter Care Teams Translator Deaf Relationship Specialty Start Date End Date Hattie Dorman PA [address] [place] [address] PCP - General 11/07/23 documented as of this encounter
--- OUTSIDE RECORDS SUMMARY | 2024-07-27 15:02 | XMS_ITS | Encounter Summary ---
Author Organization [employer] Address [address] [place] [address] Care Team Providers Care Environmental Compliance Technician Name Role Phone Tomy Witt MD Primary Care Provider [phone] Encounter Details Date Type Department Care Team (Late st Contact Info) Description 08/28/2021 Transcribed Document [facility] [place] [facility] [place] [address] ProviderGarrison MD [address] [place] [address] Social History Tobacco Use Types [...] Note - Garrison Louie MD - 08/28/2021 12:53 PM CDT [facility] [place] [address] KALIA MAGDALENO :1940 Visit Time:08/26/2021 Your Visit Summary Your Care Team Admitting Physician - BOBBY MILLER MD-NEU Attending Physician - BOBBY MILLER MD-NEU Primary Care Physician - NÉSTOR, NOT LISTED Referring Physician - NÉSTOR, NOT LISTED Your Diagnosis Intractable localization-related epilepsy These Are Your Goals No qualifying data available. Discharge Vitals Temperature 36.6 ??C Heart Rate (Monitored) 58 Respiratory Rate 16 Blood Pressure 95/50 What to do next Instructions From Your Care Team STOP taking the following medications: 1) Divalproex (Depakote) Discharge Activity: No driving, Discharge Activity: Other (use Special Instructions) Diet: Discharge Diet: Regular diet as tolerated Follow-Up Appointments Follow Up with BOBBY MILLER When 01/09/2022 01:30 PM EST Comments Appointment has been made. Where: [address] [place] [address] [place], [place] [id number]- Business (1) Medications What How Much When Instructions Next Dose lamoTRIgine (lamoTRIgine 100 mg oral tablet) 1 Tablet(s) Oral Two Times A Day Refills: 11 Start taking after you finish Lamotrigine 25 mg taper. Take 1/ 2 tab oral twice daily x 7 days then 1/ 2 tab in am and 1 tab in pm x 14 days then 1 tab oral twice daily. Pickup at [facility] lamoTRIgine (lamoTRIgine 25 mg oral tablet) See instructions Refills: 1 1 tab oral every evening for 7 days then 1 tab oral twice daily for 7 days then 1 tab in the morning and 2 tab in the evening for 7 days Pickup at [facility] albuterol (albuterol CFC free 90 mcg/ inh inhalation aerosol with adapter) 2 Puff(s) Inhalation Every 6 Hours as needed for as needed for wheezing aspirin (aspirin 81 mg oral delayed release tablet) 1 Tablet(s) Oral Every Day atorvastatin (atorvastatin 40 mg oral tablet) 1 Tablet(s) Oral Every Day brinzolamide ophthalmic (Azopt 1% ophthalmic suspension) 1 Drop(s) Eye Right Every Day budesonide-formoterol (Symbicort 160 mcg-4.5 mcg/ inh inhalation aerosol) 2 Puff(s) Inhalation Two Times A Day carvedilol (carvedilol 12.5 mg oral tablet) 0.5 Tablet(s) Oral Two Times A Day gabapentin (gabapentin 300 mg oral capsule) 1 Capsule(s) Oral At Bedtime PARoxetine (PARoxetine 40 mg oral tablet) 1 Tablet(s) Oral Every Day sacubitril-valsartan (Entresto 24 mg-26 mg oral tablet) 0.5 Tablet(s) Oral Two Times A Day spironolactone (spironolactone 25 mg oral tablet) 1 Tablet(s) Oral Every Day Pharmacy Information [facility] [place] [address] E KAREL Suarez [phone] Take your medications faithfully. Do NOT skip [...] cramping, rapid heartbeat, difficulty sleeping, and nervousness. Please dispose of unused and medications per your retail pharmacy guidance. Allergies levETIRAcetam Immunizations This Visit No Immunizations Found Education Materials Seizure, Adult A seizure is a sudden [...] no clear cause. ??? Having had a tonic???clonic seizure before. This type of seizure causes [...] like you saw or heard something before (d??j?? vu). ??? Odd tastes or smells. ??? [...] these instructions at home: Medicines ??? Take ukcp-lix-aogngfh and prescription medicines only as told by [...] the [place]., ask your local department of [employer] when you can drive. ??? Get a [...] medicines are used to treat seizures. Take yocs-djb-syqyivw and prescription medicines only as told by your doctor. This information is not intended to replace advice given to you by your health care provider. Make sure you discuss any questions you have with your health care provider. Document Revised: 08/12/2020 Document Reviewed: 08/12/2020 [employer] Patient Education ?? 2020 [email or web address]. Emergency Awareness and Preventative Care STROKE is an EMERGENCY Every Minute Counts Act FAST and Check for these signs: FACE Does the face look uneven? ARM Does one arm drift down? SPEECH Does their speech sound strange? TIME Call at any sign of stroke Stroke Risk Factors Atrial Fibrillation (irregular heartbeat) Diabetes Family history of stroke Heart Disease Heavy alcohol use High Blood Pressure High Cholesterol Physical inactivity and obesity Smoking Cigarette Smoking The facts are clear, cigarette smoking will shorten your life. Smoking can cause many illnesses along the way. As a healthcare provider, we recommend that you stop smoking. Assistance with quitting is available by contacting 1-355-XCWF-NOW. This is a free resource providing counseling, support, and referral. Or you may contact your personal physician. National Suicide Prevention Lifeline: The National Suicide Prevention Lifeline is a national network of local crisis centers that provides free and confidential emotional support to people in suicidal crisis or emotional distress 24 hours a day, 7 days a week. Don't Wait! Stop a Heart Attack Before it Starts What is a heart attack? A heart attack is damage or to a part of the heart from severely decreased or lack of blood flow to the heart. Over time, arteries can become narrow from the buildup of fat and cholesterol, which is called plaque. The plaque can rupture causing a blood clot to form. When the blood clot forms, the artery can become severely narrowed or completely blocked, causing a heart attack. Heart attack is the leading cause of in the [place]. 85% of muscle damage occurs within the first 2 hours. Delay in the recognition of heart attack symptoms increases the chances of . Know the early symptoms of a heart attack: Nausea Feeling of fullness in chest Jaw Pain Pain that travels down one or both arms Fatigue/being tired Anxiety Back Pain Chest pressure, squeezing, or discomfort Shortness of breath Sweating, or a cold sweat Feeling of impending doom There are unusual signs of a heart attack, too! Women, the elderly, and diabetics may present with atypical symptoms: Fainting/dizziness Weakness Confusion Risk Factors for a Heart Attack Some heart disease risk factors, such as age and family history, cannot be changed. Others, like smoking and lack of exercise, can be changed. Smoking High Cholesterol High Blood Pressure Family History Obesity Age Gender (Males are at higher risk) Lack of Exercise Diabetes Diet Stress Excessive Alcohol Intake If you or someone you know is experiencing the signs and symptoms of a heart attack, DON???T DELAY. Call immediately and seek help. If someone collapses, perform CPR! Do not attempt to drive if you are having symptoms of heart attack. Hands-Only CPR Why Hands-Only CPR? Hands-Only CPR has been shown to be as effective as conventional CPR for cardiac arrests that occur outside of a hospital. Survival depends on immediately receiving CPR from someone nearby. How do you perform Hands-Only CPR? There are two easy steps: Call if you see a teen or adult collapse Push hard and fast in the center of the chest at a beat of 100 beats per minute. Save a life! 4 WAYS TO GET AHEAD OF SEPSIS SEPSIS is a MEDICAL EMERGENCY. Time matters! Infections put you and your family at risk for a life-threatening condition called sepsis. Sepsis is the body's extreme response to an infection. It is life-threatening, and without timely treatment, sepsis can rapidly lead to tissue damage, organ failure, and . Sepsis happens when an infection you already have-in your skin, lungs, urinary tract or somewhere else-triggers a chain reaction throughout your body. 1 [...] sepsis or if you have an infection that is not getting better or is getting worse. To learn more about sepsis and how to prevent infections, visit www.cdc.gov/sepsis. Test Results Laboratory or Other Results This Visit (last charted value for your 08/26/2021 visit) No Laboratory or Other Results This Visit Patient Name:KALIA MAGDALENO I have received and understand this information and was given the opportunity to ask questions. Patient/Nurse Clinician Name: Patient/Nurse Clinician Signature: Relationship to Patient: Clinician/Hospital Nurse Clinician Signature: Date: documented in this encounter Plan of Treatment Not on file documented as of this encounter Visit Diagnoses Not on filedocumented in this encounter Care Teams Environmental Compliance Technician Relationship Specialty Start Date End Date Tomy Witt MD [address] [place] [address] PCP - General Family Medicine 01/09/22 documented as of this encounter
--- OUTSIDE RECORDS SUMMARY | 2024-07-27 15:02 | XMS_ITS | Encounter Summary ---
Author Organization [employer] Address [address] [place] [address] Care Team Providers Care Assistant To The Director Name Role Phone Tomy Witt MD Primary Care Provider [phone] Encounter Details Date Type Department Care Team (Late st Contact Info) Description 08/28/2021 Transcribed Document [facility] [place] [facility] [place] [address] ProviderGarrison MD [address] [place], [place] [id number] Social History Tobacco Use Types Packs/Day Years Used Date Smoking Tobacco: Never Assessed Sex and Gender Information Value Date Recorded Sex Assigned at Male 11/17/2021 5:57 PM CDT Legal Sex Male 1:42 PM CDT Gender Identity Male 11/17/2021 5:57 PM CDT Sexual Orientation Not on file documented as of this encounter Miscellaneous Notes * Cerner Conversion Note - Historical ProviderMD - 08/28/2021 11:18 AM CDT DATE OF ADMISSION: 08/26/2021 DATE OF DISCHARGE: 08/28/2021 FINAL DIAGNOSIS: Intractable localization-related epilepsy. HISTORY: This is a 81-year-old man with recurrent spells for few years. His spells typically occur in clusters over several days. He reports an unusual sensation at onset that builds up in intensity and gradually subsides over a period of a minute or so. His noted at least one episode, where he lost awareness with staring, unresponsiveness, and mumbling. He is typically tired afterwards. PAST MEDICAL HISTORY: 1. Glaucoma. 2. Hypertension. HOSPITAL COURSE: The patient was admitted and had video EEG monitoring. He had no clinical event. EEG recordings showed epileptiform discharges in the left frontotemporal electrodes and less frequently in the right frontotemporal electrodes. DISPOSITION: I discussed the results of monitoring with the patient and his . I went over implications of the EEG findings, which are suggestive of the diagnosis of focal or partial seizures. We agreed to a trial of lamotrigine. PHYSICAL EXAMINATION: VITAL SIGNS: On the day of discharge, blood pressure 95/50, heart rate 58 per minute and regular. HEENT: Pupils are equal and reactive. LUNGS: Clear. HEART: Regular rate and rhythm. Normal peripheral pulses. NEUROLOGIC: He is alert and well oriented. Normal language functions. Normal cranial nerves. Symmetric motor exam. DISCHARGE INSTRUCTIONS: 1. No driving. 2. Lamotrigine 25 mg daily to be increased to 100 mg twice daily per schedule provided. 3. Albuterol two puffs inhalation four times daily as needed. 4. Aspirin 81 mg daily. 5. Atorvastatin 40 mg daily. 6. Azopt one drop in the right eye daily. 7. Symbicort two puffs inhalation twice daily. 8. Carvedilol 6.25 mg twice daily. 9. Gabapentin 300 mg nightly. 10. Paroxetine 40 mg daily. 11. Entresto 0.5 tablets twice daily. 12. Spironolactone 25 mg daily. 13. Follow up with Dr. Kim in 4 months. /[id number] MD IRVING Wilson/AQ / TAF / MODL /[id number] documented in this encounter Plan of Treatment Not on file documented as of this encounter Visit Diagnoses Not on filedocumented in this encounter Care Teams Assistant To The Director Relationship Specialty Start Date End Date Tomy Witt MD [address] [place] [address] PCP - General Family Medicine 01/09/22 documented as of this encounter
--- OUTSIDE RECORDS SUMMARY | 2024-07-27 15:02 | XMS_ITS | Encounter Summary ---
Author Organization [employer] Address [address] [place] [address] Care Team Providers Care Shine Worker Name Role Phone Tomy Witt MD Primary Care Provider Encounter Details Date Type Department Care Team (Late st Contact Info) Description 08/28/2021 Transcribed Document [facility] [place] [address] [place] [address] ProviderGarrison MD [address] [place] [address] Social History Tobacco Use Types Packs/Day Years [...] Louie MD - 08/28/2021 12:53 PM CDT Nursing Discharge Summary Entered On: 08/28/2021 12:53 EDT Performed On: 08/28/2021 12:53 EDT by Emilie Morgan Rn Discharge Documentation Discharge Date/Time : 08/28/2021 14:00 EDT Patient Disposition, General : Discharge Discharge To : Home with ambulatory/outpatient follow-up Emilie Morgan Rn - 08/28/2021 12:53 EDT Electronically signed by Debra Cox [employer] Consulting Application Engineer Certeofilo at 06/07/2022 12:19 AM CDT documented in this encounter Plan of Treatment Not on file documented as of this encounter Visit Diagnoses Not on filedocumented in this encounter Care Teams Shine Worker Relationship Specialty Start Date End Date Tomy Witt MD [address] [place], [place] [id number] PCP - General Family Medicine 01/09/22 documented as of this encounter
[2024-07-27 15:39] LABS: Basophils # 0.1 K/mm3 (0-0.2); Basophils % 0.6 % (0.1-2.0); Eosinophils # 0.5 Kmm3 (0.0-0.4); Eosinophils % 5.6 % (0.1-12.0); Hematocrit 40.3 % (42.0-52.0); Hemoglobin 13.1 g/dL (14.1-18.0); Immature Granulocytes # 0.05 10^3uL; Immature Granulocytes % 0.6 %; Lymphocytes # 1.4 K/mm3 (0.7-4.5); Lymphocytes % 16.7 % (10-50); Mean Corpuscular HGB Conc 32.5 g/dL (31.8-35.4); Mean Corpuscular Hemoglobin 31.3 pg (27.0-31.2); Mean Corpuscular Volume 96.4 fl (80-94); Mean Platelet Volume 9.3 fl (7.4-10.4); Monocytes # 0.5 K/mm3 (0.1-1.0); Monocytes % 6.3 % (1.7-9.3); Neutrophils # 5.7 K/mm3 (1.8-7.8); Neutrophils % 70.2 % (37.0-80.0); Nucleated Red Blood Cells # 0 10^3/uL; Nucleated Red Blood Cells % 0 %; Platelet Count 212 K/mm3 (142-424); Red Blood Count 4.18 M/mm3 (4.60-6.20); Red Cell Distribution Width 14.1 % (11.5-17.5); White Blood Count 8.1 K/mm3 (4.8-10.8)
[2024-07-27 15:46] LABS: Albumin Level 3.9 g/dl (3.5-5.0); Chloride 108 mmol/L (98-107); Potassium 4.3 mmoL/L (3.5-5.1); Sodium 140 mmol/L (136-145)
[2024-07-27 15:49] LABS: Alanine Aminotransferase 17 U/L (12-78); Albumin/Globulin Ratio 1.1 (1.1-1.8); Alkaline Phosphatase 102 U/L (38-126); Anion Gap 9.3 mEq/L (5-15); Aspartate Amino Transferase 22 U/L (17-59); Bilirubin,Total 0.4 mg/dl (0.2-1.3); Blood Urea Nitrogen 28 mg/dl (9-20); Calcium 9.3 mg/dl (8.4-10.2); Carbon Dioxide 27 mmol/L (22.0-30.0); Estimated Glomerular Filt Rate 30 ml/min (>60); GFR (African American) 37 ML/MIN (>60); Globulin 3.5 g/dL (1.3-3.2); Glucose 103 mg/dl (74-100); Total Protein,Serum 7.4 g/dl (6.3-8.2)
[2024-07-27 15:55] LABS: C-Reactive Protein 5.3 mg/L (0-4)
[2024-07-27 16:12] LABS: Erythrocyte Sedimentation Rate 21 mm/hr (0-20)
[2024-07-27 16:58] LABS: Uric Acid 7.3 mg/dl (3.5-8.5)
== END 2024-07-27 23:59 | disposition home or self-care (01) ==
LOC: LAB 14:55
PROVIDERS: PCP Physician Assistant; Visit Provider Podiatrist
DX: R60.9 Edema, unspecified (principal)
CPT/HCPCS: 36415; 80053; 84550; 85025; 85651; 86140

== ENCOUNTER 2024-07-30 13:39 | Outpatient (CLI) | payer MEDICARE, OTHER, SELFPAY ==
--- OUTSIDE RECORDS SUMMARY | 2024-06-29 10:45 | XMS_ITS | Encounter Summary ---
Author Organization [facility] Address [address] [place] [address] Care Team Providers Care Remelt Sugar Boiler Name Role Phone Hattie Dorman Primary Care Provider [phone] Reason for Visit * Reason Comments Glaucoma Encounter Details Date Type Department Care Team (Late st Contact Info) Description 06/29/2024 10:45 AM EDT Office Visit [facility] [address] [place] [address] Rajesh Fisher MD [address] [address] Primary open angle glaucoma of right eye, moderate stage (Primary Dx); Primary open angle glaucoma of left eye, severe stage; After cataract not obscuring vision, left Social History Tobacco Use Types Packs/Day Years Used Date Smoking Tobacco: Former Cigarettes 1 14 0 02/18/1962 - 02/19/1976 Passive Smoke Exposure: Past Smokeless Tobacco: Never Alcohol Use Standard Drinks/Week Comments No 0 (1 standard drink = 0.6 oz pur e alcohol) PHQ-2 Answer Date Recorded Patient Health Questionnaire-2 Score 0 11/07/2023 Sex and Gender Information Value Date Recorded Sex Assigned at Male 03/10/2021 1:02 AM EST Legal Sex Male 6:32 PM EDT Gender Identity Male 03/10/2021 1:02 AM EST Sexual Orientation Straight 03/10/2021 1: 02 AM EST documented as of this encounter Miscellaneous Notes * Progress Notes - Rajesh Fisher MD - 06/29/2024 10:45 AM EDT 1) 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 Iniguez 4) Social: - former Dr. Ha patient - CAD s/p stentX8 (last 2018) - COPD - Renal disease - HFpEF (on systemic BB), previously issues with hypotension - Peripheral neuropathy (from spinal stenosis?) - LAURA (uses CPAP) - lives in [place] - 60th anniversary 12/11/23 - low vision eval with Dr. Vinson 02/10 RTC 5-6 months DFE Electronically Signed by: Ciro Candelario MD - 06/29/2024 - 11:37 AM I saw and evaluated the patient with the resident/fellow. I discussed the case with the resident/fellow and agree with the findings and plan as documented. Rajesh Fisher MD documented in this encounter Plan of Treatment Upcoming Encounters Date Type Department Care Team (Late st Contact Info) Description 09/17/2024 11:40 AM EDT Office Visit [facility] [place] [address] [place] [address] Cal Florentino MD [address] [place] [address] 11/30/2024 11:20 AM EDT Office Visit [facility] [address] [place] [address] Rajesh Fisher MD [address] [place] [address] documented as of this encounter Visit Diagnoses Diagnosis Primary open angle glaucoma of right eye, moderate stage- Primary Primary open angle glaucoma of left eye, severe stage After cataract not obscuring vision, left documented in this encounter Additional Health Concerns Assessment Noted Time A fall risk assessment has been complete d for the patient 06/29/2024 10:51 AM EDT A Body Mass Index follow-up plan has been documented for the patient 06/29/2024 11:58 AM EDT documented as of this encounter Care Teams Remelt Sugar Boiler Relationship Specialty Start Date End Date Hattie Dorman PA [address] [place] [address] PCP - General 11/07/23 documented as of this encounter
--- NOTE | 2024-07-30 13:45 | US_ITS ---
FINAL REPORT CLINICAL HISTORY: COLD EXTREMITIES,DECREASED SENESATION,EX SMOKER,HLD,REST PAIN FINDINGS: ANKLE-BRACHIAL PRESSURE INDICES Pressure indices are as follows: RIGHT LOWER EXTREMITY: Ankle-brachial pressure index: 1.06 Comments: Normal LEFT LOWER EXTREMITY: Ankle-brachial pressure index: 0.99 Comments: Normal IMPRESSION: No evidence of significant obstructive peripheral vascular disease of the lower extremities Reviewed, Interpreted and Dictated by Ramu Monreal MD Transcribed by Imelda Lopez Authenticated and [facility]
--- OUTSIDE RECORDS SUMMARY | 2024-07-30 14:33 | XMS_ITS | Encounter Summary ---
Author Organization Healthcare Address [address] [place] [address] Care Team Providers Care Professional System Administrator Name Role Phone Tomy Witt MD Primary Care Provider [phone] Ravinder Wren DO Primary Care Provider [phone] Hattie Dorman Primary Care Provider [phone] Reason for Visit * Reason Comments Med Refill Encounter Details Date Type Department Care Team (Late st Contact Info) Description 10/15/2022 Refill [facility] [place] [address] [facility] [place] [address] Annalisa Collier APRN [address] [place] [address] Social History Tobacco Use Types Packs/Day Years [...] EDT Office Visit [facility] [place] [address] [place] [address] Cal Florentino MD [address] [place] [address] 11/30/2024 11:20 AM EDT Office Visit [facility] [address] [place] [address] Rajesh Fisher MD [address] [place] [address] documented as of this encounter Visit Diagnoses Not on filedocumented in this encounter Additional Health Concerns Assessment Noted Time A fall risk assessment has been complete d for the patient 09/27/2022 11:06 AM EDT documented as of this encounter Care Teams Professional System Administrator Relationship Specialty Start Date End Date Tomy Witt MD [address] [place] [address] PCP - General 07/01/20 03/27/23 Ravinder Wren DO [address] [place], [place] [id number] PCP - General 03/28/23 11/06/23 Hattie Dorman PA [address] [facility] [place] [address] PCP - General 11/07/23 documented as of this encounter
--- OUTSIDE RECORDS SUMMARY | 2024-07-30 14:34 | XMS_ITS | Encounter Summary ---
Author Organization [facility] Address [address] [facility] [place] [address] Care Team Providers Care Sub Master Name Role Phone Hattie Dorman Primary Care Provider [phone] Encounter Details Date Type Department Care Team [...] Description 09/17/2024 11:40 AM EDT Office Visit [facility] [place] [facility] [address] [facility] [place] [address] Cal Florentino MD [address] [place] [phone] 11/30/2024 11:20 AM EDT Office Visit [facility] [address] [place] [address] Rajesh Fisher MD [address] [address] documented as of this encounter Visit Diagnoses Not on filedocumented in this encounter Additional Health Concerns Assessment Noted Time A fall risk assessment has been complete d for the patient 01/27/2024 11:24 AM EST A Body Mass Index follow-up plan has been documented for the patient 01/27/2024 12:42 PM EST documented as of this encounter Care Teams Sub Master Relationship Specialty Start Date End Date Hattie Dorman PA [address] [place] [address] PCP - General 11/07/23 documented as of this encounter
--- OUTSIDE RECORDS SUMMARY | 2024-07-30 14:34 | XMS_ITS | Encounter Summary ---
Author Organization [facility] Address [address] [address] [place] [address] Care Team Providers Care Acoustic Intelligence Specialist Name Role Phone Hattie Dorman Primary Care Provider [phone] Encounter Details Date Type Department Care Team [...] Description 09/17/2024 11:40 AM EDT Office Visit [facility] [place] [facility] [address] [facility] [place] [address] aCl Florentino MD [address] [place] [address] 11/30/2024 11:20 AM EDT Office Visit [facility] [address] [place] [address] Rajesh Fisher MD [address] [address] documented as of this encounter Visit Diagnoses Not on filedocumented in this encounter Additional Health Concerns Assessment Noted Time A fall risk assessment has been complete d for the patient 06/29/2024 10:51 AM EDT A Body Mass Index follow-up plan has been documented for the patient 06/29/2024 11:58 AM EDT documented as of this encounter Care Teams Acoustic Intelligence Specialist Relationship Specialty Start Date End Date Hattie Dorman PA [address] [place] [address] PCP - General 11/07/23 documented as of this encounter
--- OUTSIDE RECORDS SUMMARY | 2024-07-30 14:34 | XMS_ITS | Clinical Summary ---
Author Organization [facility] Address [address] [place] [address] Care Team Providers Care Durability Engineer Name Role Phone Hattie Dorman Primary Care Provider [phone] Allergies Active Allergy Reactions Criticality Noted Date [...] (40 mg) by mouth every night. Active budesonide-form oterol (Symbicort) 160-4.5 MCG/ACT inhaler Inhale 2 puffs 2 (two) times a day. Rinse mouth with water after use to reduce aftertaste and incidence of candidiasis. Do not swallow. Active gabapentin (Neurontin) 300 MG capsule TAKE ONE CAPSULE BY MOUTH EVERY DAY AT BEDTIME MAY CAUSE DROWSINESS 2 Active lamoTRIgine (LaMICtal) 100 MG tablet TAKE 1/2 TABLET BY MOUTH TWICE DAILY FOR 7 DAYS, THEN TAKE 1/2 TABLET IN THE MORNING AND 1 tablet IN THE EVENING FOR 14 DAYS, THEN TAKE ONE TABLET TWICE DAILY THEREAFTER 2 Active meclizine (Antivert) 25 MG tablet TAKE ONE TABLET BY MOUTH FOUR TIMES DAILY NEEDED FOR dizziness 3 Active sildenafil (Revatio) 20 MG tablet 2 Active fluticasone-antonio meterol (Advair Diskus) 100-50 MCG/ACT diskus inhaler Inhale 1 puff 2 (two) times a day. Rinse mouth with water after use to reduce aftertaste and incidence of candidiasis. Do not swallow. Active memantine (Namenda) 10 MG tablet TAKE ONE TABLET BY MOUTH EVERY NIGHT FOR FOURTEEN DAYS THEN TAKE ONE TABLET BY MOUTH TWICE DAILY THERAFTER 3 Active cholecalciferol (Vitamin D-3) 25 MCG (1000 UT) capsule 1 (one) time each day. 3 Active Entresto 24-26 MG tablet TAKE ONE TABLET BY MOUTH TWICE DAILY 60 tablet 12 4 Active donepezil (Aricept) 5 MG tablet TAKE ONE TABLET BY MOUTH EVERY DAY DIRECTED FOR memory 4 Active ARIPiprazole (Abilify) 2 MG tablet TAKE ONE TABLET BY MOUTH AT BEDTIME FOR mood 4 Active busPIRone (Buspar) 5 MG tablet TAKE ONE TABLET BY MOUTH TWICE DAILY DIRECTED FOR ANXIETY 4 Active brimonidine 0.2 % OP ophthalmic solution INSTILL ONE DROP IN EACH EYE TWICE DAILY 4 Active carvedilol (Coreg) 12.5 MG tablet Take 1 tablet by mouth 2 times a day with meals. 60 tablet 11 5 Active desvenlafaxine (Pristiq) 50 MG 24 hr tablet TAKE ONE TABLET BY MOUTH EVERY DAY DIRECTED FOR depression 5 Active diazePAM (Valium) 2 MG tablet TAKE ONE TABLET BY MOUTH EVERY DAY NEEDED FOR anxiety/agitatio n/sleeplessness MAY CAUSE DROWSINESS 5 Active traZODone (Desyrel) 50 MG tablet TAKE TWO TABLETS BY MOUTH EVERY DAY DIRECTED FOR SLEEP 5 Active latanoprost (Xalatan) 0.005 % ophthalmic solutionIndicat ions:Primary open angle glaucoma of right eye, moderate stage,Primary open angle glaucoma of left eye, severe stage Administer 1 drop into both eyes nightly. 2.5 mL 11 5 06/30/19 26 Active Active Problems Problem Noted Date Diagnosed [...] were discontinued or adjusted by cardiology team, ([facility]) LAURA on CPAP 01/24/2024 Overview (01/24/2024): [...] Description 06/29/2024 10:45 AM EDT Office Visit [facility] [address] [phone] Rajesh Fisher MD Primary open angle glaucoma [...] 3:31 PM EDT Oxygen Saturation 93% 11/07/2023 3: 31 PM EDT RA Inhaled Oxygen Concentration - - Weight 77.5 kg (170 lb 13.7 oz) 11/07/2023 3:31 PM EDT Height 182.9 cm (6') 11/07/2023 3:31 PM EDT Body Mass Index 23.17 11/07/2023 3:31 PM EDT Plan of Treatment Upcoming Encounters Date Type Department Care Team (Late st Contact Info) Description 09/17/2024 11:40 AM EDT Office Visit [facility] [place] [address] [place] [address] Cal Florentino MD [address] [place] [address] 11/30/2024 11:20 AM EDT Office Visit [facility] [address] [place] [address] Rajesh Fisher MD [address] [address] Health Maintenance Due Date Last Done Comments [facility]-Medicare Annual Wellness (AWV) 1940 [facility]-/Child/Adol SDOH Screenings 1940 [facility]- SDOH Screenings 1960 [facility]-Adult SDOH Screenings 1960 [facility]-Zoster Vaccines (1 of 2) 1992 [facility]-DTaP,Tdap,and Td Vaccines (1 - Tdap) 04/25/1996 04/24/1996 [facility]-RSV Vaccine: 60+ Years or (1 - 1-dose 75+ series) 2017 [facility]-Pneumococcal Vaccine: 50+ Years (2 of 2 - PPSV23) 11/05/2018 09/10/2018 [id number] Vaccine ( season) 2024 11/21/2023, 12/28/2021, 01/27/2021, Additional history [...] this topic Medical Devices Implanted Type Area Biological Engineer Device Identifier Shelf Expiration Date Model / Serial / Lot Glaucoma Valve Ahmed Adult - [id number] - [id number] Implanted:Qty : 1 on 09/18/2022 by Mau Guy MD at [facility] Eye Implant Right: Eye [id number] 08/01/2024 FP7 / [id number] / [id number] Tissue Sclera - [id number] - [id number] Implanted:Qty : 1 on 09/18/2022 by Mau Guy MD at [facility] Eye Implant Right: Eye [facility] Eye [id number] 09/26/2022 SCLERA TISSUE / [id number] ODH1 Glaucoma Valve Ahmed Adult - [id number] Implanted:02/2022 by Rajesh Fisher MD at [facility] (Quantity not on file) [id number] FP7 / / Insurance KAREL AGUILAR [id number] [place] [address] GENERIC COMMERCIAL Care Teams Durability Engineer Relationship Specialty Start Date End Date Hattie Dorman PA [address] [place] [address] PCP - General 11/07/23
--- OUTSIDE RECORDS SUMMARY | 2024-07-30 14:34 | XMS_ITS | Data Portability ---
Author Organization [employer] [facility] [place] [facility] [place] Address [address] [facility] [place] [address] Assessment No assessment recorded. Plan of Treatment Reminders Order Date Submit Date Provider Last Modified By Organization Details Last Modified Time Details Appointments None recorded. Lab None recorded. Referral None recorded. Procedures None recorded. Surgeries None recorded. Imaging None recorded. Medication Orders cyanocobala min (vit B-12) 1,000 mcg/mL injection solution [address], [address] [place] [address] E Bert Lopez-Lenin [place], [id number], 15:35:25 cyanocobala min (vit B-12) 1,000 mcg/mL injection solution [address], [address] [place] [address] E Bert Lopez-Lenin [place], [id number], 4 17:04:26 memantine 10 mg tablet 2023 [facility] [employer], [address] [place] [address] E Bert G-Lenin [place], [id number], 4 13:32:23 donepezil 5 mg tablet 2023 [facility] [employer], [address] [place] [address] E Bret G-Lenin [place], [id number], 4 13:32:21 gabapentin 300 mg capsule 2023 [facility], [address] [place] [address] E Milla Sainz [place], [id number], 5 14:21:40 buspirone 5 mg tablet 2023 [facility], [address] [place] [address] E Milla Sainz [place], [id number], 4 13:32:23 Pristiq 50 mg tablet,exte nded release 2023 [facility], [address] [place] [address] E Milla Sainz [place], [id number], 4 15:26:11 aripiprazol e 2 mg tablet 2023 [facility], [address] [place] [address] E Milla Sainz [place], [id number], 4 13:32:25 Patient TargetsNo targets recorded. Patient Instructions Encounter Date Encounter Id Patient Instructions Last Modified By Organization Details Last Modified Time 12/03/2023 [id number] learning about mood disorders [email or web address] Not available 12/03/2023 16:49:12 Reason for Referral None Reported. Problems Name Problem SNOMED Code Status Onset Date Resolution Date Notes Provider Name and Address Organization Details Recorded Time Depressive disorder 28061732 Active PORFIRIO Doss [address] [place] [address], [address], [employer] 4 15:35:07 Anxiety 26481951 Active PORFIRIO Doss [address] [place] [address], [address], [employer] 4 15:34:50 Vitamin B12 deficiency (non anemic) 16003043 Active PORFIRIO Doss [address] [place] [address], [address], [employer] 4 15:34:56 Congestive heart failure 27182647 Active 024 Hattie Dandy, [address], [address], [employer] 4 15:34:53 Insomnia 612270469 Active 024 Hattie Edwards [address], [address], [employer] 4 15:35:11 Dementia 06610433 Active [address] [place] [address], [address], [employer] 4 15:35:03 Epilepsy 59146893 Active Hattie [address], [address], [employer] 4 15:35:06 Problem Notes None recorded. Procedures Surgical History Date Name Laterality Status Provider Name and Address Organization Details Recorded Time Angioplasty completed [employer] 12/03/2023 16:14:42 Back Surgery completed [facility] [employer] 12/03/2023 16:14:42 Cataract Surgery completed [employer] 12/03/2023 16:14:42 Eye Surgery completed [employer] 12/03/2023 16:14:42 Vasectomy completed [employer] [facility] [employer] 12/03/2023 16:14:42 Imaging Results None recorded. Procedure [...] Updated DateTime 4 177.8 cm 24.4 kg/m2 70655.7 g 50 /min 96 % 96 % 99 mm[Hg] 63 mm[Hg] Pennie Brennan [employer] 4 16:14:12 Date Recorded Body height Oxygen saturation Oxygen saturation in Arterial blood by Pulse oximetry Heart rate Systolic blood pressure Diastolic blood pressure Provider Name and Address Organization Details Last Updated DateTime 4 177.8 cm 96 % 96 % 52 /min 98 mm[Hg] 59 mm[Hg] Joann Keller [employer] 14:39:13 Social History Question Answer Notes LastModified by Organizat ion Details LastModified Time Tobacco Smoking Status Former Smoker Pennie thrasher, [employer] 12/03/2023 16:14:41 Do You Have An Advance Directive? No Information n ot available 12/03/2023 Is Your Home Air Conditioned? Yes Information not available 12/03/2023 Are You Blind Or Do You Have Difficulty Seeing? Yes Information n ot available 12/03/2023 What Is Your Level Of Caffeine Consumption? Moderate Information not available 12/03/2023 What Type Of Barrel Repairer Do You Use? None Information not available [...] Do You Have A Medical Power Of City Plant Supervisor? No Information not available 12/03/2023 What Was The Date Of Your Most Recent Tobacco Screening? 01/14/2024 [email or web address] Information not available 01/14/2024 What Is Your [...] Artery Disease Y Other N Gout N Blood Diseases N Kidney Stones N Hyperthyroidism N Blood Transfusion N Breast Cancer N Emergency room visit since last appointm ent. N Lung Disease N COPD N Depression N Dermatologic Disorders N Hypothyroidism N Defects or Inherited Disease N Developmental [...] Condition N Organ Transplant N Dialysis N Schizophrenia N Fibromyalgia N Headaches N Kidney Disease N Allergies/Hayfever N Heart Problems N Ear or Hearing Problems N Hospitalizations N Learning Disorder N Artificial Joints N Thyroid Problems N GI Problems N Acne N ADD/ADHD N Eating Disorder N Anemia N Constipation N Mental Illness N Diabetes N Ovarian Cancer N Bedwetting N Hepatitis/Liver Disease N Tuberculosis N Eczema N Abuse/Domestic Violence N Diverticulitis N Asthma N Trauma/Violence N Substance Abuse N Reflux/GERD N Depression/ depression N Hepatitis N Heart Disease Y Pulmonary Embolism N Tourette Syndrome N Chronic Ear Infections N Pre-Eclampsia N Hypertension N Chicken Pox N Autism Spectrum Disorder (ASD) N Osteoporosis N Thrombophilias N Past Encounters Encounter ID Performer Location Encounter Start Date Encounter Closed Date Diagnosis/Indication Diagnosis SNOMED-CT Code Diagnosis ICD10 Code Diagnosis Note [id number] PORFIRIO Doss [facility] [address] [place] [address] 12/03/2023 15:59:08 12/03/2023 16:58:23 Depressive disorder 99261942 F32.A Anxiety 76979624 F41.9 Vitamin B1 2 deficiency (non anemic) 99716141 E53.8 Insomnia 093204173 G47.0 0 Congestive heart failure 87830607 I50.9 Managed by cardiology (Svitlana) Dementia 98394135 F03.90 Epilepsy 40414641 G40.90 9 Managed by neurology (Terence) [id number] PORFIRIO Doss [facility] [address] [place] [address] 01/14/2024 14:23:45 01/14/2024 15:22:27 Vitamin B12 deficiency (non anemic) 82484063 E53.8 Difficulty sleeping 3013 11969 Z72.820 Try taking Abilify in the am [...] ID Guarantor Name 01/11/2024 1 MEDICARE [place]: [facility] [employer] [facility] Kalia Magdaleno [id number] Kalia [place] 11/22/2023 2 [employer] Kalia Barran[place] [id number] Kalia Javede Notes Date Note Type Note Provider Name and Address Organization Details Recorded Time 12/03/2023 text/html Patient presents to [facility] care.Patient has history of anxiety/depressio n. Also [...] epilepsy. Well managed by Terence. PORFIRIO Doss [address] [place] [address], [address], [employer] 12/05/2023 15:53:49 01/14/2024 text/html Patient presents for followup. He and his state that he is doing very well. His only complaint is that of not sleeping very long now. He only sleeps for 4-5 hours. PORFIRIO Doss [address] [place] [address], [address], [employer] 01/14/2024 15:50:53
== END 2024-07-30 23:59 | disposition home or self-care (01) ==
LOC: RT 13:40
PROVIDERS: PCP Physician Assistant; Visit Provider Podiatrist
DX: E78.5 Hyperlipidemia, unspecified (principal); R09.89 Other specified symptoms and signs involving the circulatory and respiratory systems; R20.8 Other disturbances of skin sensation; R52 Pain, unspecified; Z87.891 Personal history of nicotine dependence
CPT/HCPCS: 93923

== ENCOUNTER 2024-09-28 13:44 | Outpatient (CLI) | payer MEDICARE, OTHER, SELFPAY ==
[2024-09-28 13:52] LABS: Microscopic, Urine URINE MICROSCOPIC (MICROSCOPIC)
[2024-09-28 14:29] LABS: Bilirubin,Urine Negative (Negative); Color,Urine YELLOW (Yellow); Glucose,Urine (UA) Negative (Negative); Ketones,Urine Negative (Negative); Leukocyte Esterase,Urine Negative (Negative); PH,Urine 6.0 (5.0-8.5); Protein,Urine Negative (Negative); Specific Gravity, Urine <= 1.005 (1.005-1.030); Urobilinogen,Urine 0.2 EU/dl (0.2)
[2024-09-28 14:53] LABS: Bacteria,Urine Trace /lpf; WBC,Urine Occasional #/hpf (0-3)
[2024-09-28 14:54] LABS: 25-OH Vitamin D, Total 52.3 ng/mL (30-100)
[2024-09-28 14:58] LABS: Hematocrit 40.5 % (42.0-52.0); Hemoglobin 13.0 g/dL (14.1-18.0); Mean Corpuscular HGB Conc 32.1 g/dL (31.8-35.4); Mean Corpuscular Hemoglobin 30.4 pg (27.0-31.2); Mean Corpuscular Volume 94.6 fl (80-94); Nucleated Red Blood Cells % 0 %; Platelet Count 217 K/mm3 (142-424); Red Blood Count 4.28 M/mm3 (4.60-6.20); Red Cell Distribution Width-SD 49.0 fL; White Blood Count 8.0 K/mm3 (4.8-10.8)
[2024-09-28 15:45] LABS: Albumin Level 3.8 g/dl (3.5-5.0); Anion Gap 11.6 mEq/L (5-15); Blood Urea Nitrogen 20 mg/dl (9-20); Calcium 8.8 mg/dl (8.4-10.2); Carbon Dioxide 21 mmol/L (22.0-30.0); Chloride 106 mmol/L (98-107); Creatinine,Serum 1.80 mg/dl (0.66-1.25); Estimated Glomerular Filt Rate 36 ml/min (>60); GFR (African American) 44 ML/MIN (>60); Glucose 89 mg/dl (74-100); Phosphorous 3.4 mg/dl (2.5-4.5); Potassium 4.6 mmoL/L (3.5-5.1); Sodium 134 mmol/L (136-145)
== END 2024-09-28 23:59 | disposition home or self-care (01) ==
LOC: LAB 13:45
PROVIDERS: PCP Physician Assistant; Visit Provider Internal Medicine Nephrology
DX: N18.32 Chronic kidney disease, stage 3b (principal)
CPT/HCPCS: 36415; 80069; 81001; 82306; 82570; 83970; 84156; 85027

== ENCOUNTER 2024-11-09 14:46 | Inpatient (IN) | payer MEDICARE, OTHER, SELFPAY ==
--- OUTSIDE RECORDS SUMMARY | 2024-09-17 11:20 | XMS_ITS | Encounter Summary ---
Author Organization [facility] Address [address] [place] [address] Care Team Providers Care Raisin Separator Operator Name Role Phone Hattie Dorman Primary Care Provider [phone] Reason for Referral * Consultation (Routine) - Authorized Specialty Diagnoses / Procedures Referred By Contac t Referred To Contact Diagnoses Diastolic dysfunction Dyspnea on exertion Annalisa Collier APRN [address] [place] [address] Phone: tel: fax: Referral ID Status Reason Start Date Expiration Date V isits Requested Visits Authorized [id number] Authorized 09/17/2024 03/19/2026 1 1 Encounter Details Date Type Department Care Team (Late st Contact Info) Description 09/17/2024 11:20 AM EDT Office Visit [facility] [address] [place] [address] Annalisa Collier APRN [address] [place] [address] Diastolic dysfunction (Primary Dx); Dyspnea on exertion; Coronary artery disease involving eek coronary artery of eek heart without angina pectoris Social History Tobacco Use Types Packs/Day Years Used Date Smoking Tobacco: Former Cigarettes 1 14 0 02/18/1962 - 02/19/1976 Passive Smoke Exposure: Past Smokeless Tobacco: Never Tobacco Cessation:Counseling Given: No Alcohol Use Standard Drinks/Week Comments No 0 (1 standard drink = 0.6 oz pur e alcohol) PHQ-2 Answer Date Recorded Patient Health Questionnaire-2 Score 0 09/17/2024 AUDIT-C Answer Date Recorded Q1: How often do you have a drink containing alcohol? Never 09/17/2024 Q2: How many drinks containi ng alcohol do you have on a typical day when you are drinking? Patient does not drink Q3: How often do you have si x or more drinks on one occasion? Never 09/17/2024 Sex and Gender Information Value Date Recorded Sex Assigned at Male 03/10/2021 1:02 AM EST Legal Sex Male 6:32 PM EDT Gender Identity Male 03/10/2021 1:02 AM EST Sexual Orientation Straight 03/10/2021 1: 02 AM EST documented as of this encounter Last Filed Vital Signs Vital Sign Reading Time Taken Comments Blood Pressure 78/53 09/17/2024 11:28 AM EDT Pulse 50 09/17/2024 11:28 AM EDT Temperature - - Respiratory Rate - - Oxygen Saturation 93% 09/17/2024 11:28 AM EDT Inhaled Oxygen Concentration - - Weight 74.8 kg (165 lb) 09/17/2024 11:28 AM EDT Height 182.9 cm (6') 09/17/2024 11:28 AM EDT Body Mass Index 22.38 09/17/2024 11:28 AM EDT documented in this encounter Functional Status * AUDIT-C Score Answer Date of Assessment Author 0 09/17/2024 11:29 AM EDT Yamile Hutchinson * Question Answer Date of Assessment Author Q1: How often do you have a drink containing alcohol? Never 09/17/2024 11:29 AM EDT Garry Hutchinson Q2: How many drinks containing alcohol do you have on a typical day when you are drinking? Patient does not drink 09/17/2024 11:29 AM EDT Yamile Hutchinson Q3: How often do you have six or more drinks on one occasion? Never 09/17/2024 11:29 AM EDT Garry Hutchinson * Over the past 2 weeks, how often have you been bothered by any of the following problems? Question Answer Date of Assessment Author Little interest or pleasure in doing things Not at all 09/17/2024 11:32 AM EDT Garry Hutchinson Feeling down, depressed, or hopeless Not at all 09/17/2024 11:32 AM EDT Garry Hutchinson Patient Health Questionnaire -2 Score 0 09/17/2024 11:32 AM EDT Garry Hutchinson * Calculated C-SSRS Risk Score (Lifetime/Recent) Answer Date of Assessment Author No Risk Indicated 09/17/2024 11:31 AM EDT Yamile Black * Question Answer Date of Assessment Author 1. Wish to be (Past 1 Month) No 025 11:31 AM EDT Yamile Hutchinson 2. Non-Specific Active Suici laury Thoughts (Past 1 Month) No 09/17/2024 11:31 AM EDT Garcia Hutchinson 6. Suicidal Behavior (Lifetime) No 11:31 AM EDT Yamile Hutchinson documented as of this encounter Miscellaneous Notes * Patient Instructions - Annalisa Collier APRN - 09/17/2024 11:20 AM EDT - Stop Coreg * Progress Notes - Annalisa Collier APRN - 09/17/2024 11:20 AM EDT Images from the original note were not included. Cardiology Follow Up History of Present Illness Kalia Magdaleno is an 84 y.o. male who presents today for routine follow up. PMH includes: CAD s/p MARY KAY x 8 (last 2018), HTN, HLD, DJD s/p spinal stenosis, C3 & C6 laminectomy 2018, COPD, renal disease, diastolic dysfunction, HFpEF and peripheral neuropathy. Had COVID 19 (11/2020). Patient presents to clinic today in a wheelchair accompanied by his . He reports no recent hospitalizations or emergency department visits. They have concerns regarding his home blood pressures which have been consistently low, averaging 70-90/50-60 mmHg, despite decreasing Entresto dose to 24/26 mg BID. He reports increased lightheadedness, though he denies near-syncope, syncope, or falls. He states that he remains well-hydrated. At home, he uses a walker for mobility and experiences dyspnea with exertion, even with activities such as walking short distances indoors. He also reports ongoing ankle swelling. He has an upcoming appointment with Pulmonology. He denies chest pain or palpitations. Previous Workup/ Testing (from referring facility & [facility]) - 02/2020: VQ Scan noted to be low probability for PE - 02/2020: showed significant decrease in his TLC at 70% predicted, 5.22 L. Significant decline in residual volume at 9% predicted, concerning for restrictive lung disease. - 03/2020 HRCT: emphysematous changes and possible interstitial changes in the right upper lobe along with bilateral lower lobes concerning for ILD. 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 CRP WNL 2.8. P-ANCA borderline elevated. D-dimer elevated 1.04. - SPEP and UPEP were unrevealing Review of symptoms 14 Point ROS reviewed and is otherwise negative except as per HPI. Past Medical History Past Medical History[1] Surgical History Surgical History[2] Family History family history includes Angina in his father; Cardiac disorder in his father; Cerebral aneurysm in his sister; Conversions - Other in his father; Coronary artery disease in his father; Diabetes in his mother; Diabetes type II in his mother; Heart attack in his father. Social History reports that he quit smoking about 48 years ago. His smoking use included cigarettes. He started smoking about 62 years ago. He has a 14 pack-year smoking history. He has been exposed to tobacco smoke. He has never used smokeless tobacco. He reports that he does not drink alcohol and does not use drugs. Medications Current Medications[3] Physical Exam Vitals and nursing note reviewed. Constitutional: Appearance: Normal appearance. HENT: Head: Normocephalic and atraumatic. Cardiovascular: Rate and Rhythm: Normal rate and regular rhythm. Pulses: Normal pulses. Heart sounds: Normal heart sounds. Pulmonary: Effort: Pulmonary effort is normal. Breath sounds: Normal breath sounds. Musculoskeletal: General: Normal range of motion. Cervical back: Normal range of motion. Skin: General: Skin is warm and dry. Capillary Refill: Capillary refill takes less than 2 seconds. Neurological: Mental Status: He is alert and oriented to person, place, and time. Psychiatric: Mood and Affect: Mood normal. Behavior: Behavior normal. Visit Vitals BP (!) 78/53 Pulse 50 Ht 1.829 m (6') Wt 74.8 kg (165 lb) SpO2 93% BMI 22.38 kg/m?? Labs Lab Results Component Value Date HGB 14.0 12/02/2017 HCT 41.7 12/02/2017 PLT 200 12/02/2017 ALT 34 05/19/2020 AST 28 05/19/2020 NA 134 (L) 09/17/2024 K 4.6 09/17/2024 CREATININE 2.08 (H) 09/17/2024 BUN 23 09/17/2024 CO2 24 09/17/2024 TSH 2.89 08/16/2022 INR 1.1 12/02/2017 Visit Diagnoses and Orders 1. Diastolic dysfunction 2. Dyspnea on exertion 3. 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) -BNP drawn today; 278 (WNL) -low blood pressure limits GDMT optimization -Spironolactone was previously discontinued due to hypotension -Carvedilol to be discontinued today due to persistent low blood pressure -continue Entresto 24-26 mg at 1/2 tablet twice a day -continue to monitor blood pressure and notify our clinic with any concerns #CAD -s/p MARY KAY x 8 (last 2018) -Stable -Reports no chest pain -Continue ASA and Atorvastatin FOLLOW UP: 6 months A total time of 30 minutes was spent by JORY addressing the current illness, reviewing records (prior imaging, lab work, etc), and formulating a plan. The patient is agreeable to the plan and all pertinent questions were answered. Annalisa F [place], WEB DESIGN INSTRUCTOR [1] Past Medical History: Diagnosis Date Asthma CAD (coronary artery disease) 8 heart stents Chronic kidney disease stage 3 COPD (chronic obstructive pulmonary disease) ([facility]) 2017 Diastolic dysfunction, left ventricle Dry eyes Glaucoma History of degenerative disc disease HL (hearing loss) Hyperlipidemia Hypertension Other secondary cataract, right eye After-cataract of right eye with vision obscured Personal history of other diseases of the circulatory system History of cardiac disorder. 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 Sleep apnea Spinal stenosis [2] Past Surgical History: Procedure Laterality Date CARDIAC CATHETERIZATION N/A 2017/2018 Cardiac catheterization from [facility] CATARACT EXTRACTION W/ INTRAOCULAR LENS IMPLANT N/A Cataract Phacoemulsification With Intraocular Lens Implantation from [facility] EYE SURGERY N/A Eye Surgery from [facility] OTHER SURGICAL HISTORY cervical fusion. TEAR DUCT SURGERY [3] Current Outpatient Medications Medication Sig Dispense Refill albuterol (2.5 MG/3ML) 0.083% nebulizer solution Take by nebulization every 6 (six) hours if needed. 1 Unit dose every 4-6 hours as needed. ARIPiprazole (Abilify) 2 MG tablet TAKE ONE TABLET BY MOUTH AT BEDTIME FOR mood aspirin 81 MG EC tablet Take 1 tablet (81 mg) by mouth 1 (one) time each day. atorvastatin (Lipitor) 40 MG tablet Take 1 tablet (40 mg) by mouth every night. brimonidine 0.2 % OP ophthalmic solution INSTILL ONE DROP IN EACH EYE TWICE DAILY budesonide-formoterol (Symbicort) 160-4.5 MCG/ACT inhaler Inhale 2 puffs 2 (two) times a day. [place] with water after use to reduce aftertaste and incidence of candidiasis. Do not swallow. busPIRone (Buspar) 5 MG tablet TAKE ONE TABLET BY MOUTH TWICE DAILY DIRECTED FOR ANXIETY cholecalciferol (Vitamin D-3) 25 MCG (1000 UT) capsule 1 (one) time each day. desvenlafaxine (Pristiq) 50 MG 24 hr tablet TAKE ONE TABLET BY MOUTH EVERY DAY DIRECTED FOR depression diazePAM (Valium) 2 MG tablet TAKE ONE TABLET BY MOUTH EVERY DAY NEEDED FOR anxiety/agitation/sleeplessness MAY CAUSE DROWSINESS donepezil (Aricept) 5 MG tablet TAKE ONE TABLET BY MOUTH EVERY DAY DIRECTED FOR memory Entresto 24-26 MG tablet TAKE ONE TABLET BY MOUTH TWICE DAILY 60 tablet 12 fluticasone-salmeterol (Advair Diskus) 100-50 MCG/ACT diskus inhaler Inhale 1 puff 2 (two) times a day. Rinse mouth with water after use to reduce aftertaste and incidence of candidiasis. Do not swallow. gabapentin (Neurontin) 300 MG capsule TAKE ONE CAPSULE BY MOUTH EVERY DAY AT BEDTIME MAY CAUSE DROWSINESS lamoTRIgine (LaMICtal) 100 MG tablet TAKE 1/2 TABLET BY MOUTH TWICE DAILY FOR 7 DAYS, THEN TAKE 1/2TABLET IN THE MORNING AND 1 tablet IN THE EVENING FOR 14 DAYS, THEN TAKE ONE TABLET TWICE DAILY THEREAFTER latanoprost (Xalatan) 0.005 % ophthalmic solution Administer 1 drop into both eyes nightly. 2.5 mL 11 meclizine (Antivert) 25 MG tablet TAKE ONE TABLET BY MOUTH FOUR TIMES DAILY NEEDED FOR dizziness memantine (Namenda) 10 MG tablet TAKE ONE TABLET BY MOUTH EVERY NIGHT FOR FOURTEEN DAYS THEN TAKE ONE TABLET BY MOUTH TWICE DAILY THERAFTER sildenafil (Revatio) 20 MG tablet traZODone (Desyrel) 50 MG tablet TAKE TWO TABLETS BY MOUTH EVERY DAY DIRECTED FOR SLEEP No current facility-administered medications for this visit. documented in this encounter Plan of Treatment Upcoming Encounters Date Type Department Care Team (Late st Contact Info) Description 11/30/2024 11:20 AM EDT Office Visit [facility] [address] [place] [address] Rajesh Fisher MD [address] [address] 06/17/2025 11:40 AM EDT Office Visit [facility] [address] [facility] [place] [address] Cal Florentino MD [address] [place] [id number] Scheduled Referrals Name Type Priority Associated Diagnoses Order Schedule Follow Up Cardiology Outpatient Referral Routine Diastolic dysfunction Dyspnea on exertion Expected: 06/17/2025, Expires: 03/20/2026 documented as of this encounter Procedures Procedure Name Priority Date/Time Associated Diagnosis Comments N-TERMINAL PROBNP, PLASMA Routine 09/17/2024 11:50 AM EDT Diastolic dysfunction Dyspnea on exertion BASIC METABOLIC PANEL, PLASMA Routine 09/17/2024 11:50 AM EDT Diastolic dysfunction Dyspnea on exertion documented in this encounter Results * (ABNORMAL) Basic metabolic panel (09/17/2024 11:50 AM EDT) Glucose, Plasma 89 74 - 99 mg/dL 09/17/2024 12:35 PM EDT [facility] BUN, Plasma 23 8 - 23 mg/dL 09/17/2024 12:35 PM EDT [facility] Creatinine, Plasma 2.08(H) 0.70 - 1.20 mg/dL 09/17/2024 12:35 PM EDT [facility] BUN/Creatinine Ratio 11 09/17/2024 12:35 PM EDT [facility] Sodium, Plasma 134(L) 136 - 145 mmol/L 09/17/2024 12:35 PM EDT [facility] Potassium, Plasma 4.6 3.6 - 4.9 mmol/L 09/17/2024 12:35 PM EDT [facility] Chloride, Plasma 102 97 - 107 mmol/L 09/17/2024 12:35 PM EDT [facility] CO2, Plasma 24 22 - 29 mmol/L 09/17/2024 12:35 PM EDT [facility] Anion Gap 8 6 - 16 mmol/L 09/17/2024 12:35 PM EDT [facility] Total Calcium, Plasma 8.9 8.9 - 10.2 mg/dL 09/17/2024 12:35 PM EDT [facility] eGFRcr 31.2 mL/min/1.7 3m*2 09/17/2024 12:35 PM EDT [facility] Comment:Reported eGFRcr in m L/min/1.73m2 is based the CKD-EPI 2020 equation that does not use a race coefficient. Blood Venous blood specimen / Unknown Venipuncture / Unknown 09/17/2024 11:50 AM EDT 09/17/2024 12:03 PM EDT Annalisa Collier WEB DESIGN INSTRUCTOR LAB BLOOD ORDERABLES Final R esult Performing Organization Address City/[facility] Co de Phone Number [facility] [address] [place] [address] * N-Terminal Probnp, Plasma (09/17/2024 11:50 AM EDT) N-Terminal, PROBNP, Plasma 278 0 - 1,799 pg/mL 09/17/2024 12:35 PM EDT [facility] Blood Venous blood specimen / Unknown Venipuncture / Unknown 09/17/2024 11:50 AM EDT 09/17/2024 12:03 PM EDT [facility] BLOOD ORDERABLES Final R esult Performing Organization Address [facility] Co de Phone Number [facility] [address] [place] [address] documented in this encounter Visit Diagnoses Diagnosis Diastolic dysfunction- Primary Unspecified heart disease Dyspnea on exertion Other dyspnea and respiratory abnormality Coronary artery disease involving eek coronary artery of eek heart without angina pectoris documented in this encounter Additional Health Concerns Assessment Noted Time A fall risk assessment has been complete d for the patient 09/17/2024 11:32 AM EDT A Body Mass Index follow-up plan has been documented for the patient 09/17/2024 11:57 AM EDT documented as of this encounter Care Teams Raisin Separator Operator Relationship Specialty Start Date End Date Hattie Dorman PA [address] [place] [address] PCP - General 11/07/23 documented as of this encounter
--- OUTSIDE RECORDS SUMMARY | 2024-10-09 09:40 | XMS_ITS | Encounter Summary ---
Author Organization [facility] Address [address] [place] [address] Care Team Providers Care Vein Access Technician Name Role Phone Hattie Dorman Primary Care Provider [phone] Reason for Referral * Consultation (Routine) - Authorized Specialty Diagnoses / Procedures Referred By Contac t Referred To Contact Diagnoses Stage 3b chronic kidney disease (CMS/HCC) Rae Lozoya APRN [address] [address] Phone: tel: fax: Referral ID Status Reason Start Date Expiration Date V isits Requested Visits Authorized [id number] Authorized 10/09/2024 04/10/2026 1 1 Reason for [...] Description 10/09/2024 9:40 AM EDT Office Visit [facility] [address] [place] [phone] Rae Lozoya APRN [address] [address] Stage 3b chronic kidney disease (CMS/HCC) (Primary Dx); Coronary artery disease involving [place] coronary artery of [place] heart without angina pectoris; Essential hypertension; Chronic [...] Description 11/30/2024 11:20 AM EDT Office Visit [facility] [address] [place] [address] Rajesh Fisher MD [address] [address] 06/17/2025 11:40 AM EDT Office Visit [facility] [place] [address] [place] [address] Cal Florentino MD [address] [place] [phone] Scheduled Orders Name Type Priority Associated Diagnoses Orde r Schedule Renal Function Panel, Plasma Lab Routine Stage 3b chronic kidney disease ([facility]/HCC) Expected: 10/09/2024 (Approximate), Expires: 04/11/2026 CBC W/O [...] disease (CMS/HCC)- Primary Coronary artery disease involving [place] coronary artery of [place] heart without angina pectoris Essential hypertension Unspecified essential hypertension Chronic kidney disease-mineral and bone disorder documented in this encounter Additional Health Concerns Assessment Noted Time A fall risk assessment has been complete d for the patient 09/17/2024 11:32 AM EDT A Body Mass Index follow-up plan has been documented for the patient 10/09/2024 10:06 AM EDT documented as of this encounter Care Teams Vein Access Technician Relationship Specialty Start Date End Date Hattie Dorman PA [address] [place] [id number] PCP - General 11/07/23 documented as of this encounter
[2024-11-09] VITALS (10 sets, daily range): BP systolic 95–138; BP diastolic 44–66; PULSE 64–78; RESP 14–20; TEMP 36.7–36.9; O2SAT 92–98; BMI 22.4; BMI 22.3
[2024-11-09 15:14] LABS: Coronavirus 19, PCR Not Detected (NotDetected); Influenza A, PCR Not Detected (NotDetected); Influenza B, PCR Not Detected (NotDetected)
--- OUTSIDE RECORDS SUMMARY | 2024-11-09 15:21 | XMS_ITS | Encounter Summary ---
Author Organization [facility] Address [address] [place] [address] Care Team Providers Care Farm Equipment Operator Name Role Phone Hattie Dorman Primary Care Provider Reason for Visit * Reason Comments Med Refill Encounter Details Date Type Department Care Team (Late st Contact Info) Description 09/21/2024 Refill [facility] [place] [address] [facility] [place] [address] Annalisa Collier APRN [address] [place] [address] Social History Tobacco Use Types Packs/Day Years [...] Description 11/30/2024 11:20 AM EDT Office Visit [facility] [address] [place] [address] Rajesh Fisher MD [address] [place] [address] 06/17/2025 11:40 AM EDT Office Visit [facility] [place] [address] [place] [address] Cal Florentino MD [address] [place] [address] documented as of this encounter Visit Diagnoses Not on filedocumented in this encounter Additional Health Concerns Assessment Noted Time A fall risk assessment has been complete d for the patient 09/17/2024 11:32 AM EDT A Body Mass Index follow-up plan has been documented for the patient 09/17/2024 11:57 AM EDT documented as of this encounter Care Teams Farm Equipment Operator Relationship Specialty Start Date End Date Hattie Dorman PA [address] [place] [address] PCP - General 11/07/23 documented as of this encounter
--- OUTSIDE RECORDS SUMMARY | 2024-11-09 15:21 | XMS_ITS | Clinical Summary ---
Author Organization [facility] Address [address] [place] [address] Care Team Providers Care Orthotic Technician Name Role Phone Hattie Dorman Primary Care Provider [phone] Allergies Active Allergy Reactions Criticality Noted Date Comments Levetiracetam Other - please docum ent in the comment field,Nausea High 07/20/2021 Mood change Spironolactone Other - please docum ent in the comment field Low 09/17/2024 hypotension Medications albuterol (2.5 MG/3ML) 0.083% nebulizer solution [...] 1 (one) time each day. 3 Active donepezil (Aricept) 5 MG tablet TAKE [...] IN EACH EYE TWICE DAILY 4 Active desvenlafaxine (Pristiq) 50 MG 24 hr [...] 2.5 mL 11 5 06/30/19 26 Active Entresto 24-26 MG tablet TAKE ONE TABLET BY MOUTH TWICE DAILY 60 tablet 12 5 Active Active Problems Problem Noted Date Diagnosed [...] were discontinued or adjusted by cardiology team, ([facility]) LAURA on CPAP 01/24/2024 Overview (01/24/2024): [...] extrinsic 03/12/2019 Diastolic dysfunction, left ventricle 03/12/2019 CAD (coronary artery disease) 09/10/2018 Status post [...] compression 07/19/2014 Cervical myelopathy 06/15/2014 Neuropathy 05/03/2014 Resolved Problems Problem Noted Date Diagnosed Date Resolved Date Muscle weakness of extremity 02/03/2019 11/08/2024 Encounters Date Type Department Care Team Description 10/09/2024 9:40 AM EDT Office Visit [facility] [address] [place] [address] Rae Lozoya APRN Stage 3b chronic kidney disease (CMS/HCC) (Primary Dx); Coronary artery disease involving [place] coronary artery of [place] heart without angina pectoris; Essential hypertension; Chronic kidney disease-mineral and bone disorder 10/09/2024 Travel 09/21/2024 Refill [facility] [place] [address] [place] [address] Annalisa Collier APRN 09/17/2024 11:20 AM EDT Office Visit [facility] [address] [place] [address] Annalisa Collier APRN Diastolic dysfunction (Primary Dx); Dyspnea on exertion; Coronary artery disease involving [place] coronary artery of [place] heart without angina pectoris 09/17/2024 Travel from Last 3 Months Immunizations Immunization [...] Pulse 60 10/09/2024 9:41 AM EDT Temperature 36.7 C (98.1 F) 09/18/2022 4:15 PM EDT Respiratory Rate 18 10/09/2024 9:41 AM EDT Oxygen Saturation 95% 10/09/2024 9:41 AM EDT Inhaled Oxygen Concentration - - Weight 74.4 kg (164 lb) 10/09/2024 9:41 AM EDT Height 182.9 cm (6') 10/09/2024 9:41 AM EDT Body Mass Index 22.24 10/09/2024 9:41 AM EDT Plan of Treatment Upcoming Encounters Date Type Department Care Team (Late st Contact Info) Description 11/30/2024 11:20 AM EDT Office Visit [facility] [address] [facility] [place] [address] Rajesh Fisher MD [address] [facility] [address] [place] [address] 06/17/2025 11:40 AM EDT Office Visit [facility] [place] [address] [facility]. [address] [place] [address] Cal Florentino MD [address] [place] [address] Health Maintenance Due Date Last Done Comments [facility]-Medicare Annual Wellness (AWV) 1942 [facility]-Infant/Child/Adol SDOH Screenings 1942 [facility]- SDOH Screenings 1960 [facility]-Adult SDOH Screenings 1960 [facility]-Zoster Vaccines (1 of 2) 1992 [facility]-DTaP,Tdap,and Td Vaccines (1 - Tdap) 04/25/1996 04/24/1996 [facility]-RSV Vaccine: 60+ Years or (1 - 1-dose 75+ series) 2017 [facility]-Pneumococcal Vaccine: 50+ Years (2 of 2 - PPSV23, PCV20, or PCV21) 11/05/2018 09/10/2018 [id number] Vaccine ( season) 2024 11/21/2023, 12/28/2021, 01/27/2021, Additional history exists [facility]-Influenza Vaccine (#1) 10/19/202411/20, 11/27/2022, 12/28/2021, Additional history exists [facility]-Depression Screening 09/17/2025 09/17/2024 HPV Vaccines Aged Out No longer eligi [...] this topic Medical Devices Implanted Type Area Electrical Drafter Device Identifier Shelf Expiration Date Model / Serial / Lot Glaucoma Valve Ahmed Adult - [id number] - [id number] Implanted:Qty : 1 on 09/18/2022 by Mau Guy MD at [facility] Eye Implant Right: Eye [facility], [place], [facility]ated By [id number] 08/01/2024 7 / [id number] Tissue Sclera - [id number] - [id number] Implanted:Qty : 1 on 09/18/2022 by Mau Guy MD at [facility] Eye Implant Right: Eye [id number] 09/26/2022 SCLERA TISSUE / [id number] Glaucoma Valve Ahmed Adult - [id number] Implanted:02/2022 by Rajehs Fisher MD at [facility] (Quantity not on file) [facility] [place], [facility]ated By [id number] / / Procedures Procedure Name Priority Date/Time Associated Diagnosis Comments BASIC METABOLIC PANEL, PLASMA Routine 09/17/2024 11:50 AM EDT Diastolic dysfunction Dyspnea on exertion N-TERMINAL PROBNP, PLASMA Routine 09/17/2024 11:50 AM EDT Diastolic dysfunction Dyspnea on exertion from Last 3 Months Results * N-Terminal Probnp, Plasma (09/17/2024 11:50 AM EDT) N-Terminal, PROBNP, Plasma 278 0 - 1,799 pg/mL 09/17/2024 12:35 PM EDT [facility] Blood Venous blood specimen / Unknown Venipuncture / Unknown 09/17/2024 11:50 AM EDT 09/17/2024 12:03 PM EDT Annalisa Collier [facility] BLOOD ORDERABLES Final R esult [facility] [address] [place] [address] * (ABNORMAL) Basic metabolic panel (09/17/2024 11:50 AM EDT) Glucose, Plasma 89 74 - 99 mg/dL 09/17/2024 12:35 PM EDT [facility] BUN, Plasma 23 8 - 23 mg/dL 09/17/2024 12:35 PM EDT [facility] Creatinine, Plasma 2.08(H) 0.70 - 1.20 mg/dL 09/17/2024 12:35 PM EDT [facility] BUN/Creatinine Ratio 11 09/17/2024 12:35 PM EDT [facility] Sodium, Plasma 134(L) 136 - 145 mmol/L 09/17/2024 12:35 PM EDT [facility] Potassium, Plasma 4.6 3.6 - 4.9 mmol/L 09/17/2024 12:35 PM EDT [facility] Chloride, Plasma 102 97 - 107 mmol/L 09/17/2024 12:35 PM EDT [facility] CO2, Plasma 24 22 - 29 mmol/L 09/17/2024 12:35 PM EDT [facility] Anion Gap 8 6 - 16 mmol/L 09/17/2024 12:35 PM EDT [facility] Total Calcium, Plasma 8.9 8.9 - 10.2 mg/dL 09/17/2024 12:35 PM EDT [facility] eGFRcr 31.2 mL/min/1.7 3m*2 09/17/2024 12:35 PM EDT [facility] Comment:Reported eGFRcr in m L/min/1.73m2 is based the CKD-EPI 2020 equation that does not use a race coefficient. Blood Venous blood specimen / Unknown Venipuncture / Unknown 09/17/2024 11:50 AM EDT 09/17/2024 12:03 PM EDT Annalisa Collier [facility] LAB BLOOD ORDERABLES Final R esult Performing Organization Address City/State/[facility] Co de Phone Number [facility] [address] [place] [address] from Last 3 [place] [address] GENERIC COMMERCIAL Care Teams Orthotic Technician Relationship Specialty Start Date End Date Hattie Dorman PA [address] [place] [address] PCP - General 11/07/23
--- OUTSIDE RECORDS SUMMARY | 2024-11-09 15:21 | XMS_ITS | Encounter Summary ---
Author Organization [facility] Address [address] [place] [address] Care Team Providers Care Gleason Operator Name Role Phone Hattie Dorman Primary Care Provider [phone] Encounter Details Date Type Department Care Team (Latest Contact Info) Description 09/17/2024 Travel Social History Tobacco Use Types Packs/Day [...] AM EST documented as of this encounter Functional Status * AUDIT-C Score [...] Never 09/17/2024 11:29 AM EDT Garry Hutchinson A * Over the past 2 weeks, how [...] Yamile Hutchinson documented as of this encounter Plan of Treatment Upcoming Encounters Date Type Department Care Team (Late st Contact Info) Description 11/30/2024 11:20 AM EDT Office Visit [facility] [address] [place] [address] Rajesh Fisher MD [address] [address] 06/17/2025 11:40 AM EDT Office Visit [facility] [place] [address] [facility] [place] [address] Cal Florentino MD [address] [place] [address] documented as of this encounter Visit Diagnoses Not on filedocumented in this encounter Additional Health Concerns Assessment Noted Time A fall risk assessment has been complete d for the patient 09/17/2024 11:32 AM EDT A Body Mass Index follow-up plan has been documented for the patient 09/17/2024 11:57 AM EDT documented as of this encounter Care Teams Gleason Operator Relationship Specialty Start Date End Date Hattie Dorman PA [address] [place] [address] PCP - General 11/07/23 documented as of this encounter
--- OUTSIDE RECORDS SUMMARY | 2024-11-09 15:21 | XMS_ITS | Encounter Summary ---
Author Organization [facility] Address [address] [place] [address] Care Team Providers Care Collator Hand Name Role Phone Tomy Witt MD Primary Care Provider [phone] Ravinder Wren DO Primary Care Provider [phone] Hattie Dorman Primary Care Provider [phone] Reason for Visit * Reason Comments Med Refill Encounter Details Date Type Department Care Team (Late st Contact Info) Description 10/15/2022 Refill [facility] [place] [address] [facility] [place] [address] Annalisa Collier APRN [address] [place] [address] Social History Tobacco Use Types Packs/Day Years [...] Description 11/30/2024 11:20 AM EDT Office Visit [facility] [address] [place] [address] Rajesh Fisher MD [address] [place] [address] 06/17/2025 11:40 AM EDT Office Visit [facility] [place] [address] [place] [address] Cal Florentino MD [address] [place] [address] documented as of this encounter Visit Diagnoses Not on filedocumented in this encounter Additional Health Concerns Assessment Noted Time A fall risk assessment has been complete d for the patient 09/27/2022 11:06 AM EDT documented as of this encounter Care Teams Collator Hand Relationship Specialty Start Date End Date Tomy Witt MD [address] [place] [address] PCP - General 07/01/20 03/27/23 Ravinder Wren DO [address] [place], [place] [id number] PCP - General 03/28/23 11/06/23 Hattie Dorman PA [address] [facility] [place] [address] PCP - General 11/07/23 documented as of this encounter
--- OUTSIDE RECORDS SUMMARY | 2024-11-09 15:21 | XMS_ITS | Encounter Summary ---
Author Organization [facility] Address [address] [place] [address] Care Team Providers Care Boatswains Mate Name Role Phone Hattie Dorman Primary Care Provider [phone] Encounter Details Date Type Department Care Team (Latest Contact Info) Description 10/09/2024 Travel Social History Tobacco Use Types Packs/Day [...] Description 11/30/2024 11:20 AM EDT Office Visit [facility] [address] [place] [address] Rajesh Fisher MD [address] [place] [address] 06/17/2025 11:40 AM EDT Office Visit [facility] [place] [address] [place] [address] Cal Florentino MD [address] [place] [address] documented as of this encounter Visit Diagnoses Not on filedocumented in this encounter Additional Health Concerns Assessment Noted Time A fall risk assessment has been complete d for the patient 09/17/2024 11:32 AM EDT A Body Mass Index follow-up plan has been documented for the patient 10/09/2024 10:06 AM EDT documented as of this encounter Care Teams Boatswains Mate Relationship Specialty Start Date End Date Hattie Dorman PA [address] [place] [address] PCP - General 11/07/23 documented as of this encounter
--- NOTE | 2024-11-09 15:34 | ECG_ITS ---
APPROVED REPORT Exam: Resting ECG HR:64 bpm ECG Measurements Heart Rate 64 AXES TN 175 P 81 QRSd 91 QRS 240 QT 403 T 65 QTc 412 Conclusion SINUS RHYTHM INDETERMINATE AXIS PATTERN CONSISTENT WITH PULMONARY DISEASE POSSIBLE RIGHT VENTRICULAR HYPERTROPHY [SOME/ALL OF: PROMINENT R IN V1, LATE TRANSITION, RAD, JOSE DE JESUS, SSS] ABNORMAL ECG UNCONFIRMED REPORT Normal sinus rhythm. No ST elevation or depression. Electronically signed by : JESU CANADA, 11/09/2024 23:55:01
--- NOTE | 2024-11-09 15:53 | PC.NURSE ---
RN aware of BP at this time.
--- NOTE | 2024-11-09 16:18 | ED_ITS ---
<Statement entered by Jason Farfan MD - 11/09/24 19:14> I was consulted by the JORY, and we discussed the complexity of the problems being addressed. I approve the treatment and management plan for this patient's care in the emergency department, thus performing a substantive portion of the medical decision making. Jason Farfan MD Discharge Plan Disposition Patient Disposition: Admitted Condition: Fair Clinical Impressions Clinical Impression: Elevated troponin, Pneumonia Discharge ED Provider: Jason Farfan HPI General Chief Complaint: Shortness of Breath/Dyspnea Stated Complaint: SOA, heavy cough Time Seen by Provider: 11/09/24 16:18 Mode of Arrival: Wheelchair Source of Information: Patient Description of Symptoms (Recalled from ER Triage Doc. by RN): patient states for 2 weeks he has had a cough shortness of breath, seen at PCP last week and given steroids and zpak finisihed on saturday and no better. History of Present Illness HPI narrative: 84-year-old male presents the emergency department with a 1 to 2-week history of shortness of breath productive cough, subjective fever and chills, patient was seen by primary care provider last week, received a azithromycin pack as well as steroids which the patient finished, with little no relief of symptomatology, worsening over the last several days, this prompted emergency department visit. Patient denies any chest pain, no nausea no vomiting no abdominal pain no constipation no diarrhea no urinary type symptomatology, no hemoptysis, no hematuria melena hematochezia or hematemesis. Patient is a former smoker, denies any alcohol or drug use, other past medical history is consistent with LAURA on CPAP, interstitial lung disease, emphysema, CKD, CAD status post 8 stent placements, prior TIA/CVA, hypertension, cervical spondylosis status post what sounds like cervical fusion, mood disorder. Initial triage vitals are unremarkable. Please note that above description of symptoms, in this electronic medical record under categorization of recalled from ER triage doctor by RN are reflective of an initial nursing assessment, however, is not reflective of my full history and physical exam that was personally taken and clarified. Consequentially, this preceding description of symptoms, which may include the patient's categorized chief complaint in the EMR, do not reflect my personal clinical impression, and the ultimate description of history of present illness and patient stated complaints should be deferred to this section of the note. Unless stated otherwise or congruent with this section of the note, additional signs, symptoms, or incongruence should be interpreted as inaccurate with my clinical impression. Onset (ago): week(s) Related Data Home Medications ?Medication ?Instructions ?Recorded ?Confirmed aspirin 81 mg tablet,delayed 81 mg PO DAILY Heart dise ase 03/19/17 10/06/24 release (Adult Low Dose Aspirin) sacubitril 24 mg-valsartan 26 mg 0.5 tab PO BID Heart failure 09/21/21 10/06/24 tablet cholecalciferol (vitamin D3) 25 25 mcg PO DAILY 10/06/24 mcg (1,000 unit) capsule dorzolamide 22.3 mg-timolol 6.8 1 drp ophthalmic (eye) BID 04/03/23 10/06/24 mg/mL eye drops (Cosopt) brimonidine 0.2 % eye drops 1 drp Eye-Both BID 5 10/06/24 buspirone 5 mg tablet 5 mg PO BID 07/06/24 5 desvenlafaxine succinate 50 mg 50 mg PO DAILY 07/06/24 10/06/24 tablet,extended release 24 hr diazepam 2 mg tablet 2 mg PO PRN 07/06/24 5 latanoprost 0.005 % eye drops 1 drp Eye-Both HS 10/06/24 Previous Rx's ?Medication ?Instructions ?Recorded sildenafil (pulm.hypertension) 20 20 mg PO DIRECTED PRN sexual 02/06/22 mg tablet activity #40 tabs atorvastatin 40 mg tablet See Rx Instructions .Route 0 07/22/23 .COMPLEX #90 tabs ondansetron 4 mg disintegrating See Rx Instructions .R oute 08/19/23 tablet .COMPLEX #14 ea gabapentin 300 mg capsule 300 mg PO HS #30 caps (Neurontin) paroxetine HCl 40 mg tablet See Rx Instructions .Route 09/17/23 .COMPLEX #90 tabs trazodone 50 mg tablet See Rx Instructions .Route 0 10/14/23 .COMPLEX #60 tabs lamotrigine 100 mg tablet 150 mg (1.5 x 100 mg) PO BID 06/10/24 Complex partial seizure #270 tabs memantine 10 mg tablet 10 mg PO BID Memory loss #18 0 tabs 06/10/24 albuterol sulfate 90 mcg/actuation 2 inh inhalation Q6 H PRN shortness 07/06/24 aerosol inhaler of breath or wheezing 90 day s #8.5 grams fluticasone 250 mcg-salmeterol 50 1 inh inhalation BID 90 days #180 07/06/24 mcg/dose blistr powdr for ea inhalation mupirocin 2 % topical ointment 1 applic topical BID 3 weeks #22 07/27/24 (Centany) grams ipratropium 0.5 mg-albuterol 3 mg 3 ml inhalation Q6H PRN shortness 10/08/24 (2.5 mg base)/3 mL nebulization of breath or wheezing #180 mL soln Allergies Allergy/AdvReac Type Severity Reaction Status Date / Time levetiracetam (From [facility]) AdvReac Severe anger, Verified 10/06/24 14:44 depression, gait disturbance PFS PFS Disclaimer: The information contained in this section may have been updated after the patient was seen, as this information can be updated by other users. Medical History Tinnitus of right ear Sensorineural hearing loss (SNHL) of both ears Hearing loss Tinnitus Restrictive lung disease History of 2019 novel coronavirus disease (COVID-19) Asthma-COPD overlap syndrome Abnormal PFT Moderate persistent asthma ILD (interstitial lung disease) Centrilobular emphysema Dyspnea on exertion LAURA on CPAP Bradycardia Surgical History History of cardiac cath H/O cervical spine surgery Family History Coronary artery disease Hypertension Social History Smoking Status: Never smoker alcohol intake: never counseling provided: none substance use type: denies use current occupational status: retired Travel in the last 8 weeks?: None household members: spouse housing: house caffeine: Yes Have you lived/traveled outside [place] in past 30 days?: No Contact w/someone who lives/traveled outside [place] past 30 days?: No Exposure to someone with infectious disease in past 14 days?: No Do you have a fever (greater than 100.4 F or 38 C)?: No Have you tested positive for COVID-19?: No Exposed to someone with COVID-19 in past 14 days?: No Do you have a sore throat?: No Do you have a cough?: Yes Do you have any weakness?: No Do you have any diarrhea?: No Are you experiencing any unusual bleeding?: No Do you have any muscle aches/pain?: No Do you have any abdominal pain?: No Are you experiencing loss of taste or smell?: No Other Medical History Have you received the Flu Vaccine for this season: No Have you received the Pneumonia Vaccine: Yes ROS Obtained: Yes All systems reviewed & no additional complaints except as documented Physical Exam General General appearance: alert and in no apparent distress Head Head exam: atraumatic and normocephalic Eye Eye exam: Present PERRL and EOMI ENT ENT exam: Present mucous membranes moist Neck Neck exam: Present normal inspection Chest Chest inspection: Present normal inspection and symmetric chest wall rise Respiratory Respiratory exam: Present wheezes and other (Mild crackles heard throughout left and right lung hodges, right greater than left, as well as mild diffuse wheezes heard bilaterally); Absent normal lung sounds bilaterally or respiratory distress Cardiovascular Cardiovascular exam: Present regular rate and normal rhythm Abdominal Exam Abdominal exam: Present soft; Absent tenderness, guarding, rebound or rigidity Extremities Exam Extremities exam: Present normal inspection Neurological Exam Neurological exam: Present alert and oriented X3 Psychiatric Psychiatric exam: Present normal affect Skin Skin exam: Present warm and dry HEART Score HEART Score HEART Score assessment performed?: Yes HEART Score: 5 Critical Care Critical Care Time Critical Care Time: No Medical Decision Making Medical Records Medical records reviewed: Yes I reviewed the patient's medical records. Demond Inquiry Pt receiving controlled substance: No Demond was queried for this patient: No Vital Signs Vital Signs: 11/09/24 15:03 11/09/24 15:06 11/09/24 16:30 Temperature 98.2 F Temperature Source Oral Pulse Rate 66 64 Pulse Rate [Right Radial] 71 Respiratory Rate 20 Blood Pressure 95/48 L 100/55 L Blood Pressure [Right Arm] 97/48 L Blood Pressure Mean Blood Pressure Mean [Right Arm] 64 Blood Pressure Source [Right Arm] Automatic Cuff Blood Pressure Position [Right Arm] Sitting 02 Sat by Pulse Oximetry 95 92 L 95 Oxygen Delivery Method Room Air Room Air 11/09/24 16:38 11/09/24 17:00 11/09/24 17:30 Temperature Temperature Source Pulse Rate 65 66 Pulse Rate [Right Radial] Respiratory Rate Blood Pressure 107/44 L 109/55 L Blood Pressure [Right Arm] Blood Pressure Mean 67 Blood Pressure Mean [Right Arm] Blood Pressure Source [Right Arm] Blood Pressure Position [Right Arm] 02 Sat by Pulse Oximetry 95 97 92 L Oxygen Delivery Method Room Air Lab Data Lab results reviewed: Yes I reviewed the patient's lab results. Labs: Lab Results 11/09/24 15:08: SARS-CoV-2 (PCR) Not detected, Influenza A Untype (PCR) Not detected, Influenza Type B (PCR) Not detected 11/09/24 16:28: WBC 12.4 H, RBC 4.66, Hgb 14.7, Hct 43.2, MCV 92.7, MCH 31.5 H, MCHC 34.0, RDW 14.9, Plt Count 310, MPV 8.7, Neut % (Auto) 75.7, Lymph % (Auto) 10.6, Dade % (Auto) 5.6, Eos % (Auto) 6.2, Baso % (Auto) 0.4, Neut # (Auto) 9.4 H, Lymph # (Auto) 1.3, Dade # (Auto) 0.7, Eos # (Auto) 0.8 H, Baso # (Auto) 0.1, Sodium 140, Potassium 4.2, Chloride 102, Carbon Dioxide 27, Anion Gap 15.2 H, B UN 24 H, Creatinine 1.60 H, Estimated Creat Clear 38, Estimated GFR 42 L, Est GFR ( Amer) 50 L, Glucose 102 H, Calcium 9.0, Magnesium 2.1, Total Bilirubin 1.0, AST 39, ALT 30, Alkaline Phosphatase 104, Troponin I 0.06 H, N T-Pro-B Natriuret Pep 742 H, Total Protein 7.7, Albumin 4.1, Globulin 3.6 H, Albumin/Globulin Ratio 1.1, HCV Ab JUDIE w/Rflx PCR Qn Negative, HIV Ag/Ab Combo Qual Negative 11/09/24 16:28 11/09/24 16:28 Response Orders (Tests/Meds): ED MEDICATIONS Generic Name Dose Route Start Last Admin Trade Name Freq PRN Reason Stop Dose Admin Acetaminophen 650 mg 11/09/24 18:08 Acetaminophen 325mg Tab PO 12/09/24 18:07 Q4HP PRN Fever or Mild Pain (1-3) Heparin Sodium (Porcine) 5,000 unit 11/09/24 21:00 Heparin Sodium 5,000 Unit/Ml Vial SUBCUT 12/09/24 20:59 TID VARSHA Azithromycin 500 mg/ Sodium 250 mls @ 250 mls/hr 11/09/24 18:15 Chloride IV 11/19/24 18:14 Q24H VARSHA Piperacillin Sod/Tazobactam 50 mls @ 100 mls/hr 11/09/24 23:55 Sod 3.375 gm/ Sodium Chloride IV 11/19/24 23:54 Q6H VARSHA Discontinued Medications Generic Name Dose Route Start Last Admin Trade Name Freq PRN Reason Stop Dose Admin Piperacillin Sod/Tazobactam 50 mls @ 100 mls/hr 11/09/24 17:59 Sod 3.375 gm/ Sodium Chloride IV 11/09/24 18:28 ONCE ONE ORDERS Category Date Time Status XR chest portable Stat Exams 11/09/24 16:22 Completed Complete Blood Count Auto Diff AMLAB Lab 11/10/24 06:00 Ordered Complete Blood Count Auto Diff Stat Lab 11/09/24 16:28 Completed Comprehensive Metabolic Panel AMLAB Lab 11/10/24 06:00 Ordered Comprehensive Metabolic Panel Stat Lab 11/09/24 16:28 Completed HIV Combo Stat Lab 11/09/24 16:28 Completed Hepatitis C Ab Qual. W/ RFX Stat Lab 11/09/24 16:28 Completed Magnesium AMLAB Lab 11/10/24 06:00 Ordered Magnesium Stat Lab 11/09/24 16:28 Completed NT Pro Brain Natriuretic Pep. Stat Lab 11/09/24 16:28 Completed Rapid PCR Covid and Flu A/B Stat Lab 11/09/24 15:08 Completed Troponin I Q3H Lab 11/09/24 19:30 Ordered Troponin I Q3H Lab 11/09/24 22:30 Ordered Troponin I Stat Lab 11/09/24 16:28 Completed Urinalysis and Microscopic Stat Lab 11/09/24 16:22 Ordered MDM Narrative Medical Decision Narrative: 84-year-old male presents the emergency department with productive cough, shortness of breath worsening with the last 1 to 2 weeks, differential diagnose include but not limited to, acute bronchitis, viral URI, pneumonia, cardiac arrhythmia, electrolyte disturbance, COPD exacerbation, new onset CHF exacerbation, pleural effusion, pulmonary edema, among others. I discussed this patient's case with the attending physician Dr. Farfan Will obtain basic laboratory studies, EKG, CXR, will obtain rapid PCR COVID and flu, magnesium level proBNP troponin UA. CBC noted for mild leukocytosis 12.4 Negative COVID-19 and influenza via PCR CMP is notable for BUN elevation 24, creatinine is elevated 1.6, appears to be improved at the patient's baseline. proBNP mildly evaded at 742. Troponin is elevated at 0.06. I reviewed the patient's chest x-ray along the corresponding radiologic report, no right lower airspace disease remain present infiltrate or aspiration. Start IV Zosyn 3.375 mg for the patient. I discussed this patient's case with Dr. Almazan the hospitalist physician at approximately 6 PM, he is in agreement with the current treatment plan/admission plan for pneumonia and elevated troponin most likely in the setting of demand ischemia, with no ischemic changes on EKG, patient and family are in agreement with current treatment plan/admission plan. Patient has a curb 65 score of 3 due to his elevated BUN, age as well as diastolic blood pressure, thus meeting admission criteria, as well as failure of outpatient treatment.
--- NOTE | 2024-11-09 16:22 | XR_ITS ---
PROCEDURE INFORMATION: Exam: XR Chest Exam date and time: 11/09/2024 4:27 PM Age: 84 years old Clinical indication: Shortness of breath; Additional info: SOA, cough TECHNIQUE: Imaging protocol: Radiologic exam of the chest. Views: 1 view. COMPARISON: CR XR CHEST PORTABLE 07/09/2022 4:49 PM FINDINGS: Lungs: New right lung base airspace disease is noted when compared to prior study. Chronic interstitial changes are present bilaterally.. No consolidation. Pleural spaces: Unremarkable. No pleural effusion. No pneumothorax. Heart/Mediastinum: Unremarkable. No cardiomegaly. Bones/joints: Unremarkable. IMPRESSION: New right lower lobe airspace disease which may represent infiltrate or aspiration.
[2024-11-09 16:38] LABS: Hematocrit 43.2 % (42.0-52.0); Hemoglobin 14.7 g/dL (14.1-18.0); Immature Granulocytes % 1.5 %; Mean Corpuscular HGB Conc 34.0 g/dL (31.8-35.4); Mean Corpuscular Hemoglobin 31.5 pg (27.0-31.2); Mean Corpuscular Volume 92.7 fl (80-94); Nucleated Red Blood Cells % 0 %; Platelet Count 310 K/mm3 (142-424); Red Blood Count 4.66 M/mm3 (4.60-6.20); Red Cell Distribution Width-SD 50.7 fL; White Blood Count 12.4 K/mm3 (4.8-10.8)
[2024-11-09 16:52] LABS: Albumin Level 4.1 g/dl (3.5-5.0); Chloride 102 mmol/L (98-107); Potassium 4.2 mmoL/L (3.5-5.1); Sodium 140 mmol/L (136-145)
[2024-11-09 16:55] LABS: Alanine Aminotransferase 30 U/L (12-78); Albumin/Globulin Ratio 1.1 (1.1-1.8); Alkaline Phosphatase 104 U/L (38-126); Anion Gap 15.2 mEq/L (5-15); Aspartate Amino Transferase 39 U/L (17-59); Bilirubin,Total 1.0 mg/dl (0.2-1.3); Blood Urea Nitrogen 24 mg/dl (9-20); Calcium 9.0 mg/dl (8.4-10.2); Carbon Dioxide 27 mmol/L (22.0-30.0); Creatinine Clearance Estimated 38 mL/min (50-200); Creatinine,Serum 1.60 mg/dl (0.66-1.25); Estimated Glomerular Filt Rate 42 ml/min (>60); GFR (African American) 50 ML/MIN (>60); Globulin 3.6 g/dL (1.3-3.2); Glucose 102 mg/dl (74-100); Total Protein,Serum 7.7 g/dl (6.3-8.2)
[2024-11-09 16:56] LABS: Magnesium 2.1 mg/dl (1.6-2.3)
[2024-11-09 17:11] LABS: NT Pro Brain Natriuretic Pep. 742 pg/mL (0-450)
[2024-11-09 17:14] LABS: Troponin I 0.06 ng/ml (0.00-0.034)
[2024-11-09 17:52] LABS: Hepatitis C Ab Qual. W/ RFX NEGATIVE (Negative)
--- NOTE | 2024-11-09 18:08 | PC.NURSE ---
TIGHTENER NOTIFIED OF ADMISSION
--- NOTE | 2024-11-09 18:12 | EXP.HP ---
History of Present Illness *Admission Date: 11/09/24 *Reason for visit:: dyspnea, failed outpt treatment *History of present illness: Kalia Magdaleno is a 84-year-old male with medical history significant for CAD with 8 stents (follows with [facility] [place]), COPD on room air, pulmonary hypertension, anxiety/depression, complex partial seizures, dementia who presents with 2-week onset of productive cough, shortness of breath. He states he had recently finished a course of Z-Dong and steroids last Saturday and was feeling well until yesterday when he began having yellow productive cough and shortness of breath with exertion. He describes the sputum as thick yellow. Denies nausea/vomiting, fever/chills, chest pain, abdominal pain, urinary symptoms, constipation/diarrhea. Upon further inquiry, patient does note that he has been aspirating and apparently has had speech evaluation last year per at bedside. No dietary changes were recommended at that time. Has been adherent to his medications, no recent medication changes. Denies lower extremity pitting edema. Workup in the ED significant for WBC 12.4, AGAP 15.2 troponin 0.06 - 0.09, BNP 742, mini respiratory panel negative for COVID-19/influenza. Curb 65 score was 3. CXR suggests right lower lobe pneumonia. Given these findings, ED provider discussed case with's and hospital medicine team decided to admit patient for community-acquired pneumonia. [facility] Disclaimer: The information contained in this section may have been updated after the patient was seen, as this information can be updated by other users. Medical History Tinnitus of right ear Sensorineural hearing loss (SNHL) of both ears Hearing loss Tinnitus Restrictive lung disease History of 2019 novel coronavirus disease (COVID-19) Asthma-COPD overlap syndrome Abnormal PFT Moderate persistent asthma ILD (interstitial lung disease) Centrilobular emphysema Dyspnea on exertion LAURA on CPAP Bradycardia Surgical History History of cardiac cath H/O cervical spine surgery Family History Coronary artery disease Hypertension Social History (Updated 11/09/24 @ 20:28 by Tiffany Walhs RN) Smoking Status: Never smoker alcohol intake: never counseling provided: none substance use type: denies use current occupational status: retired Travel in the last 8 weeks?: None household members: spouse housing: house caffeine: Yes Have you lived/traveled outside US in past 30 days?: No Contact w/someone who lives/traveled outside US past 30 days?: No Exposure to someone with infectious disease in past 14 days?: No Do you have a fever (greater than 100.4 F or 38 C)?: No Have you tested positive for COVID-19?: No Exposed to someone with COVID-19 in past 14 days?: No Do you have a sore throat?: No Do you have a cough?: Yes Do you have any weakness?: No Are you experiencing any nausea/vomitting?: No Do you have any diarrhea?: No Are you experiencing any unusual bleeding?: No Do you have any muscle aches/pain?: No Do you have any abdominal pain?: No Are you experiencing loss of taste or smell?: No Other Medical History Have you received the Flu Vaccine for this season: No Have you received the Pneumonia Vaccine: Yes Review of Systems Review of Systems Review of systems (narrative): 14 point review of systems performed, pertinent positives and negatives as per HPI Meds Home Medications and Allergies Home Medications ?Medication ?Instructions ?Recorded ?Confirmed ?Type aspirin 81 mg tablet,delayed 81 mg PO DAILY Heart disease 03/19/17 11/09/24 History release (Adult Low Dose Aspirin) sacubitril 24 mg-valsartan 26 mg 0.5 tab PO BID Heart failure 09/21/21 11/09/24 History tablet sildenafil (pulm.hypertension) 20 20 mg PO DIRECTED PRN sexual 02/06/22 11/09/24 Rx mg tablet activity #40 tabs cholecalciferol (vitamin D3) 25 25 mcg PO DAILY 07/26/22 11/09/24 History mcg (1,000 unit) capsule dorzolamide 22.3 mg-timolol 6.8 1 drp ophthalmic (eye) BID 04/03/23 11/09/24 History mg/mL eye drops (Cosopt) gabapentin 300 mg capsule 300 mg PO HS #30 caps 08/27/23 11/09/24 Rx (Neurontin) lamotrigine 100 mg tablet 150 mg (1.5 x 100 mg) PO BID 06/10/24 11/09/24 Rx Complex partial seizure #270 tabs memantine 10 mg tablet 10 mg PO BID Memory loss #180 tabs 06/10/24 11/09/24 Rx albuterol sulfate 90 mcg/actuation 2 inh inhalation Q6H PRN shortness 07/06/24 11/09/24 Rx aerosol inhaler of breath or wheezing 90 days #8.5 grams brimonidine 0.2 % eye drops 1 drp Eye-Both BID 07/06/24 11/09/24 History buspirone 5 mg tablet 5 mg PO BID 07/06/24 11/09/24 History desvenlafaxine succinate 50 mg 50 mg PO DAILY 07/06/24 11/09/24 History tablet,extended release 24 hr diazepam 2 mg tablet 2 mg PO DAILY PRN Anxiety 07/06/24 11/09/24 History fluticasone 250 mcg-salmeterol 50 1 inh inhalation BID 90 days #180 07/06/24 11/09/24 Rx mcg/dose blistr powdr for ea inhalation latanoprost 0.005 % eye drops 1 drp Eye-Both HS 07/06/24 11/09/24 History mupirocin 2 % topical ointment 1 applic topical BID 3 weeks #22 07/27/24 11/09/24 Rx (Centany) grams ipratropium 0.5 mg-albuterol 3 mg 3 ml inhalation Q6H PRN shortness 10/08/24 11/09/24 Rx (2.5 mg base)/3 mL nebulization of breath or wheezing #180 mL soln atorvastatin 40 mg tablet 40 mg PO DAILY 11/09/24 11/09/24 History ondansetron 4 mg disintegrating 4 mg translingual Q8 PRN Nausea 11/09/24 11/09/24 History tablet And Vomiting paroxetine HCl 40 mg tablet 40 mg PO DAILY 11/09/24 11/09/24 History trazodone 50 mg tablet 50 mg PO HS PRN Sleep 11/09/24 11/09/24 History New Prescriptions to Start Prescriptions: Allergies Allergy/AdvReac Type Severity Reaction Status Date / Time levetiracetam (From [facility]) AdvReac Severe anger, Verified 10/06/24 14:44 depression, gait disturbance Exam Data for Last 24 hours Vital signs and Labs for Last 24 Hours: Temp Pulse Resp BP Pulse Ox O2 Del Method 98.2 F 66 20 109/55 L 92 L Room Air 11/09/24 15:03 11/09/24 17:30 11/09/24 15:03 11/09/24 17:30 11/09/24 17:30 11/09/24 16:38 Laboratory Results - last 24 hr 11/09/24 15:08: SARS-CoV-2 (PCR) Not detected, Influenza A Untype (PCR) Not detected, Influenza Type B (PCR) Not detected 11/09/24 16:28: WBC 12.4 H, RBC 4.66, Hgb 14.7, Hct 43.2, MCV 92.7, MCH 31.5 H, MCHC 34.0, RDW 14.9, Plt Count 310, MPV 8.7, Neut % (Auto) 75.7, Lymph % (Auto) 10.6, [place] % (Auto) 5.6, Eos % (Auto) 6.2, Baso % (Auto) 0.4, Neut # (Auto) 9.4 H, Lymph # (Auto) 1.3, [place] # (Auto) 0.7, Eos # (Auto) 0.8 H, Baso # (Auto) 0.1, Sodium 140, Potassium 4.2, Chloride 102, Carbon Dioxide 27, Anion Gap 15.2 H, BUN 24 H, Creatinine 1.60 H, Estimated Creat Clear 38, Estimated GFR 42 L, Est GFR ( Amer) 50 L, Glucose 102 H, Calcium 9.0, Magnesium 2.1, Total Bilirubin 1.0, AST 39, ALT 30, Alkaline Phosphatase 104, Troponin I 0.06 H, NT-Pro-B Natriuret Pep 742 H, Total Protein 7.7, Albumin 4.1, Globulin 3.6 H, Albumin/Globulin Ratio 1.1, HCV Ab JUDIE w/Rflx PCR Qn Negative, HIV Ag/Ab Combo Qual Negative I & O for Last 24 hours: Intake & Output 11/06/24 11/07/24 11/08/24 11/09/24 23:59 23:59 23:59 23:59 Weight 74.843 kg Constitutional Constitutional: mild distress, average body habitus and chronically ill appearing *Routine HEENT Exam Head: Present normocephalic Eye: Present EOMI and PERRL ENT: Present mucous membranes moist *Routine Neck Exam Neck: Present supple; Absent lymphadenopathy *Routine Respiratory Exam Respiratory: Present CTA bilaterally *Routine Cardiovascular Exam Cardiovascular: Present RRR *Routine Abdominal Exam Abdominal: Present soft and normoactive bowel sounds; Absent tenderness *Routine Rectal Exam Rectal:: deferred *Routine Genitalia Exam Genitalia:: deferred *Routine Extremities Exam Extremities: Absent cyanosis, clubbing or edema *Routine Skin Exam Skin: Present warm; Absent rash *Routine Neurological Exam Neurological: Present alert and oriented X3 Assessment and Plan *Assessment and plan (1) Pneumonia: Status: Acute Category: Medical Code(s): J18.9 - Pneumonia, unspecified organism (2) NSTEMI (non-ST elevated myocardial infarction): Status: Acute Category: Medical Code(s): I21.4 - Non-ST elevation (NSTEMI) myocardial infarction (3) Aspiration pneumonia: Status: Acute Category: Medical Code(s): J69.0 - Pneumonitis due to inhalation of food and vomit (4) COPD (chronic obstructive pulmonary disease): Status: Chronic Qualifiers: COPD type: emphysema Emphysema type: centrilobular Qualified Code(s): J43.2 - Centrilobular emphysema Category: Medical Code(s): J44.9 - Chronic obstructive pulmonary disease, unspecified (5) Complex partial seizure disorder: Problem Comment: 10/30/2019: Currently stable on Lamictal generic 150 mg twice daily, most recent laboratory work, Lamictal level 5.7 within therapeutic range 09/26/2018: Sleep deprived/prolonged EEG, ZETO: Abnormal EEG. Asymmetrical, slow background rhythm. Focal slowing, independent transient sharps and occasional phase reversal seen over the bifrontal regions, left greater than right. Focal slowing in the [place] range seen over the left frontotemporal region. Cannot exclude focal cerebral dysfunction in this region. Status: Chronic Category: Medical Code(s): G40.209 - Localization-related (focal) (partial) symptomatic epilepsy and epileptic syndromes with complex partial seizures, not intractable, without status epilepticus (6) Asthma: Status: Acute Category: Medical Code(s): J45.909 - Unspecified asthma, uncomplicated Plan Kalia Magdaleno is a 84-year-old male with medical history significant for CAD with 8 stents (follows with [facility] [place]), asthma on room air, pulmonary hypertension, anxiety/depression, complex partial seizures, dementia who presents with 2-week onset of productive cough, shortness of breath. He states he had recently finished a course of Z-Dong and steroids last Saturday and was feeling well until yesterday when he began having yellow productive cough and shortness of breath with exertion. He describes the sputum as thick yellow. Denies nausea/vomiting, fever/chills, chest pain, abdominal pain, urinary symptoms, constipation/diarrhea. Upon further inquiry, patient does note that he has been aspirating and apparently has had speech evaluation last year per at bedside. No dietary changes were recommended at that time. Has been adherent to his medications, no recent medication changes. Denies lower extremity pitting edema. Workup in the ED significant for WBC 12.4, AGAP 15.2 troponin 0.06 - 0.09, BNP 742, mini respiratory panel negative for COVID-19/influenza. Curb 65 score was 3. CXR suggests right lower lobe pneumonia. Given these findings, ED provider discussed case withs and hospital medicine team decided to admit patient for community-acquired pneumonia. #Suspected aspiration pneumonia ? Presents with 2-week onset of progressively worsening yellow productive cough, shortness of breath. Initial curb 65 score was 3. Failed outpatient azithromycin, steroids. ? Initial WBC 12.4, no signs of sepsis. Vital signs stable. On room air. ? Patient endorses aspiration, speech therapy evaluation last year did not make dietary modifications at that time. ? Continue IV Zosyn 3.375 g every 8 hours. ? Follow-up sputum, blood cultures. ? Speech therapy consulted, pending further recommendations. N.p.o. until then. ? Follow-up morning CBC, procalcitonin, CRP. #NSTEMI, likely type II #History of CAD with stents ? Extensive coronary disease, and 8 stents in the past. Follows with [facility] [place]. ? Troponin uptrending, 0.06-0.09. Likely demand ischemia in setting of pneumonia at this time. Will continue to trend, EKG without acute ischemic changes. ? With progressive cough, follow-up ECHO. BNP 742. ? Continue home aspirin, statin. ? Consider cardiology recommendation if troponins continue to uptrend. No chest pain at this time. #Asthma #Pulmonary hypertension ? Stable. Continue home Advair. ? Continue home sildenafil once reconciled. #Anxiety/depression ? Continue home once reconciled. #Complex partial seizures ? Continue home lamotrigine 150 mg twice daily. #Dementia ? Continue home memantine once reconciled. Full code DVT prophylaxis: Lovenox 40 mg
--- NOTE | 2024-11-09 18:34 | PC.NURSE ---
Report given to CHRISTINE Barron.
[2024-11-09] MEDS: PIPERACILLIN/TAZO 3.375 GM in 0.9 % SODIUM CHLORIDE 50 ML IV (19:55)
[2024-11-09 20:44] LABS: Troponin I 0.09 ng/ml (0.00-0.034)
[2024-11-09] MEDS: AZITHROMYCIN 500 MG in 0.9 % SODIUM CHLORIDE 250 ML 250 MG IV (20:44)
[2024-11-09] MEDS: HEPARIN SODIUM 5,000 UNIT/ML VIAL 5000 UNIT SUBCUT (20:51)
[2024-11-09 23:28] LABS: Troponin I 0.18 ng/ml (0.00-0.034)
[2024-11-09] MEDS: ASPIRIN 325MG TABLET 325 MG PO (23:58)
[2024-11-09] MEDS: TRAZODONE 50MG TABLET 50 MG PO (23:59)
[2024-11-09] MEDS: GABAPENTIN 300MG CAPSULE 300 MG PO (23:59)
[2024-11-10] VITALS (10 sets, daily range): BP systolic 86–120; BP diastolic 43–57; PULSE 60–85; RESP 14–18; TEMP 36.7–36.8; O2SAT 89–98; BMI 23.6
[2024-11-10] MEDS: PIPERCILLIN/TAZO 3.375 GM in 0.9 % SODIUM CHLORIDE 50 ML IV ×4 (02:10→20:20)
--- NOTE | 2024-11-10 04:00 | PC.NURSE ---
Pt. was admitted yesterday from the ED with Pneumonia and elevated Trop. levels. Pt. had 2 week history of cough and Shortness of breath. He had a course of antibiotics and steroids was feeling a little better for a couple of days and than the Shortness of breath and cough bot worse. Pt. has an extensive heart history with 8 stents in his heart. Pt. also has possible problem with aspiration. He had a swallow test last year and it was ok. Pt. feels like he may be aspirating now. Pt. is alert and orientated x 4. Pt. is on room air. He does use a CPAP machine at night. Pt/ c/o feeling tired and wants some rest. Once CPAP applied by RT, Pt. has been sleeping well. Pt. NPO until speech eval. Personal items and call ramos in reach. Bed in low and locked position. Safety measures in place.
[2024-11-10 05:40] LABS: Hematocrit 37.5 % (42.0-52.0); Immature Granulocytes % 2.4 %; Mean Corpuscular HGB Conc 33.9 g/dL (31.8-35.4); Mean Corpuscular Hemoglobin 31.7 pg (27.0-31.2); Mean Corpuscular Volume 93.5 fl (80-94); Nucleated Red Blood Cells % 0 %; Platelet Count 222 K/mm3 (142-424); Red Blood Count 4.01 M/mm3 (4.60-6.20); Red Cell Distribution Width-SD 51.6 fL; White Blood Count 9.2 K/mm3 (4.8-10.8)
[2024-11-10 05:47] LABS: Hemoglobin 12.6 g/dL (14.1-18.0)
[2024-11-10 05:48] LABS: Albumin Level 3.1 g/dl (3.5-5.0); Chloride 106 mmol/L (98-107)
[2024-11-10 05:49] LABS: Potassium 4.0 mmoL/L (3.5-5.1); Sodium 140 mmol/L (136-145)
[2024-11-10 05:51] LABS: Anion Gap 12.0 mEq/L (5-15); Blood Urea Nitrogen 20 mg/dl (9-20); Carbon Dioxide 26 mmol/L (22.0-30.0); Creatinine Clearance Estimated 40 mL/min (50-200); Creatinine,Serum 1.60 mg/dl (0.66-1.25); Estimated Glomerular Filt Rate 42 ml/min (>60); GFR (African American) 50 ML/MIN (>60)
[2024-11-10 05:52] LABS: Alanine Aminotransferase 21 U/L (12-78); Albumin/Globulin Ratio 1.1 (1.1-1.8); Alkaline Phosphatase 89 U/L (38-126); Aspartate Amino Transferase 29 U/L (17-59); Bilirubin,Total 0.9 mg/dl (0.2-1.3); Calcium 8.1 mg/dl (8.4-10.2); Globulin 2.7 g/dL (1.3-3.2); Glucose 87 mg/dl (74-100); Magnesium 2.1 mg/dl (1.6-2.3); Total Protein,Serum 5.8 g/dl (6.3-8.2)
[2024-11-10 07:51] LABS: C-Reactive Protein 36.1 mg/L (0-4)
[2024-11-10 07:58] LABS: Procalcitonin 0.104 ng/mL (0.0-2.0)
[2024-11-10] MEDS: ASPIRIN EC 81MG TABLET 81 MG PO (09:07)
[2024-11-10 09:26] LABS: Troponin I 0.33 ng/ml (0.00-0.034)
--- NOTE | 2024-11-10 09:26 | PC.NURSE ---
critical troponin called from lab 0.33
--- NOTE | 2024-11-10 10:52 | EXP.CARD.CON ---
History of Present Illness History of Present Illness Consult date: 11/10/24 Requesting physician: Ravinder Cortes Chief complaint: soa and cough History of present illness: Kalia Magdaleno is an 84-year-old white male with a past medical history of coronary artery disease status post 8 stents, COPD on room air, pulmonary hypertension, anxiety/depression and complete partial seizures who presented to emergency department with complaints of shortness of breath and cough. EKG upon presentation to ER showed sinus rhythm at a rate of 64, negative for STEMI. Initial troponin 0.06 trending up to 0.33. Chest x-ray concerning for right lower lobe pneumonia. This morning patient does endorse some left-sided chest pressure and continues to have shortness of breath, no changes on ekg. Echo is pending. [facility] Disclaimer: The information contained in this section may have been updated after the patient was seen, as this information can be updated by other users. Medical History Tinnitus of right ear Sensorineural hearing loss (SNHL) of both ears Hearing loss Tinnitus Restrictive lung disease History of 2019 novel coronavirus disease (COVID-19) Asthma-COPD overlap syndrome Abnormal PFT Moderate persistent asthma ILD (interstitial lung disease) Centrilobular emphysema Dyspnea on exertion LAURA on CPAP Bradycardia Surgical History History of cardiac cath H/O cervical spine surgery Family History Coronary artery disease Hypertension Social History (Updated 11/09/24 @ 20:28 by Tiffany Walsh RN) Smoking Status: Never smoker alcohol intake: never counseling provided: none substance use type: denies use current occupational status: retired Travel in the last 8 weeks?: None household members: spouse housing: house caffeine: Yes Have you lived/traveled outside US in past 30 days?: No Contact w/someone who lives/traveled outside US past 30 days?: No Exposure to someone with infectious disease in past 14 days?: No Do you have a fever (greater than 100.4 F or 38 C)?: No Have you tested positive for COVID-19?: No Exposed to someone with COVID-19 in past 14 days?: No Do you have a sore throat?: No Do you have a cough?: Yes Do you have any weakness?: No Are you experiencing any nausea/vomitting?: No Do you have any diarrhea?: No Are you experiencing any unusual bleeding?: No Do you have any muscle aches/pain?: No Do you have any abdominal pain?: No Are you experiencing loss of taste or smell?: No Review of Systems Review of Systems Review of systems:: pertinent systems reviewed and negative unless documented below *Cardiovascular Cardiovascular: Reports chest pain and Reports dyspnea *Respiratory Respiratory: Reports cough and Reports dyspnea Exam Data for Last 24 hours Vital signs and Labs for Last 24 Hours: Temp Pulse Resp BP Pulse Ox O2 Del Method 98.1 F 69 17 86/43 L 94 L Room Air 11/10/24 08:00 11/10/24 08:44 11/10/24 08:00 11/10/24 08:44 11/10/24 08:00 11/10/24 08:00 Laboratory Results - last 24 hr 11/09/24 15:08: SARS-CoV-2 (PCR) Not detected, Influenza A Untype (PCR) Not detected, Influenza Type B (PCR) Not detected 11/09/24 16:28: WBC 12.4 H, RBC 4.66, Hgb 14.7, Hct 43.2, MCV 92.7, MCH 31.5 H, MCHC 34.0, RDW 14.9, Plt Count 310, MPV 8.7, Neut % (Auto) 75.7, Lymph % (Auto) 10.6, [place] % (Auto) 5.6, Eos % (Auto) 6.2, Baso % (Auto) 0.4, Neut # (Auto) 9.4 H, Lymph # (Auto) 1.3, [place] # (Auto) 0.7, Eos # (Auto) 0.8 H, Baso # (Auto) 0.1, Sodium 140, Potassium 4.2, Chloride 102, Carbon Dioxide 27, Anion Gap 15.2 H, BUN 24 H, Creatinine 1.60 H, Estimated Creat Clear 38, Estimated GFR 42 L, Est GFR ( Amer) 50 L, Glucose 102 H, Calcium 9.0, Magnesium 2.1, Total Bilirubin 1.0, AST 39, ALT 30, Alkaline Phosphatase 104, Troponin I 0.06 H, NT-Pro-B Natriuret Pep 742 H, Total Protein 7.7, Albumin 4.1, Globulin 3.6 H, Albumin/Globulin Ratio 1.1, HCV Ab JUDIE w/Rflx PCR Qn Negative, HIV Ag/Ab Combo Qual Negative 11/09/24 20:07: Troponin I 0.09 H 11/09/24 22:44: Troponin I 0.18 H 11/10/24 05:32: WBC 9.2 D, RBC 4.01 L, Hgb 12.6 L D, Hct 37.5 L, MCV 93.5, MCH 31.7 H, MCHC 33.9, RDW 14.9, Plt Count 222 D, MPV 8.8, Neut % (Auto) 58.4, Lymph % (Auto) 19.7, [place] % (Auto) 7.9, Eos % (Auto) 10.9, Baso % (Auto) 0.7, Neut # (Auto) 5.4, Lymph # (Auto) 1.8, [place] # (Auto) 0.7, Eos # (Auto) 1.0 H, Baso # (Auto) 0.1, Sodium 140, Potassium 4.0, Chloride 106, Carbon Dioxide 26, Anion Gap 12.0, BUN 20, Creatinine 1.60 H, Estimated Creat Clear 40, Estimated GFR 42 L, Est GFR ( Amer) 50 L, Glucose 87, Calcium 8.1 L, Magnesium 2.1, Total Bilirubin 0.9, AST 29 D, ALT 21 D, Alkaline Phosphatase 89, Troponin I 0.33 H, C-Reactive Protein 36.1 H, Total Protein 5.8 L, Albumin 3.1 L D, Globulin 2.7, Albumin/Globulin Ratio 1.1, Procalcitonin 0.104 I & O for Last 24 hours: Intake & Output 11/07/24 11/08/24 11/09/24 11/10/24 23:59 23:59 23:59 23:59 Intake Total 300 / 500 300 / 300 Output Total 100 / 100 0 / 0 Balance 200 / 400 300 / 300 Weight 164 lb 8 oz 174 lb 11.2 oz Constitutional Constitutional: no acute distress *Routine Respiratory Exam Respiratory: Present wheezes and symmetric chest movement *Routine Cardiovascular Exam Cardiovascular: Present RRR, Normal S1 and Normal S2 *Routine Abdominal Exam Abdominal: Present soft and normoactive bowel sounds; Absent tenderness *Routine Extremities Exam Extremities: Present full ROM and normal capillary refill; Absent edema *Routine Skin Exam Skin: Present intact, dry and warm Detailed Neck Exam: Thyroids Thyroid: Absent bruit Meds Home Medications and Allergies Home Medications ?Medication ?Instructions ?Recorded ?Confirmed ?Type aspirin 81 mg tablet,delayed 81 mg PO DAILY Heart disease 03/19/17 11/09/24 History release (Adult Low Dose Aspirin) sacubitril 24 mg-valsartan 26 mg 1 tab PO BID Heart failure 09/21/21 11/10/24 History tablet sildenafil (pulm.hypertension) 20 20 mg PO DIRECTED PRN sexual 02/06/22 11/09/24 Rx mg tablet activity #40 tabs cholecalciferol (vitamin D3) 25 25 mcg PO DAILY 07/26/22 11/09/24 History mcg (1,000 unit) capsule gabapentin 300 mg capsule 300 mg PO HS #30 caps 08/27/23 11/09/24 Rx (Neurontin) lamotrigine 100 mg tablet 150 mg (1.5 x 100 mg) PO BID 06/10/24 11/09/24 Rx Complex partial seizure #270 tabs brimonidine 0.2 % eye drops 1 drp Eye-Both BID 07/06/24 11/09/24 History buspirone 5 mg tablet 5 mg PO BID 07/06/24 11/09/24 History desvenlafaxine succinate 50 mg 50 mg PO DAILY 07/06/24 11/09/24 History tablet,extended release 24 hr diazepam 2 mg tablet 2 mg PO DAILY PRN Anxiety 07/06/24 11/09/24 History fluticasone 250 mcg-salmeterol 50 1 inh inhalation BID 90 days #180 07/06/24 11/09/24 Rx mcg/dose blistr powdr for ea inhalation latanoprost 0.005 % eye drops 1 drp Eye-Both HS 07/06/24 11/09/24 History atorvastatin 40 mg tablet 40 mg PO HS 11/09/24 11/10/24 History ondansetron 4 mg disintegrating 4 mg PO Q8 PRN Nausea And Vomiting 11/09/24 11/10/24 History tablet trazodone 50 mg tablet 100 mg PO HS PRN Sleep 11/09/24 11/10/24 History albuterol sulfate 90 mcg/actuation 2 inh inhalation Q4HP PRN 11/10/24 11/10/24 History aerosol inhaler shortness of breath or wheezing memantine 10 mg tablet 10 mg PO BID 11/10/24 11/09/24 History New Prescriptions to Start Prescriptions: Allergies Allergy/AdvReac Type Severity Reaction Status Date / Time levetiracetam (From [facility]) AdvReac Severe anger, Verified 10/06/24 14:44 depression, gait disturbance Assessment and Plan *Assessment and plan (1) Pneumonia: Status: Acute Category: Medical Code(s): J18.9 - Pneumonia, unspecified organism (2) Elevated troponin: Status: Acute Category: Medical Code(s): R79.89 - Other specified abnormal findings of blood chemistry (3) CAD (coronary artery disease): Status: Acute Category: Medical Code(s): I25.10 - Atherosclerotic heart disease of [place] coronary artery without angina pectoris Plan Right sided pneumonia Hx of CAD Elevated trop/acute myocardial injury Will defer antibiotic management to primary service Elevated troponin in the setting of acute pneumonia Does endorse some left-sided chest pressure History of 8 stents EKG negative for acute ischemic changes Echo normal biventricular systolic function with biatrial dilation, mild AI/MR/TR Continue aspirin and statin. 11/10/2024: Patient needs to remain n.p.o. after midnight for left heart catheterization tomorrow.
[2024-11-10] MEDS: LACTATED RINGERS 1000ML 500 ML 250 ML IV (11:56)
--- NOTE | 2024-11-10 12:03 | HMH.SLDYSPHA ---
Speech & Language Evaluation Speech/Language Dysphagia Evaluation Start: 11/10/24 11:51 Freq: ONCE Status: Active Protocol: Document 11/10/24 11:51 SHERICE (Rec: 11/10/24 12:03 [facility] [id number]) Dysphagia Assess/Goals/Plan Assessment Date of Evaluation: 11/10/24 Evaluation Type Initial Certification Assessment/Problems aspiration concerns per MD order Does Patient Qualify Yes for Service Qualify/Failure Based on clinical observations made throughout CSE and Comment patient/family report, Mr. Magdaleno would benefit from further instrumental assessment, MBSS, to assess the oropharyngeal phase of the swallow. Recommendations PHYSICIAN CERTIFICATION: The specified therapy services are required, authorized, and reviewed every 30 days. Pt will be seen # 1 times/week Diet Recommendations Mechanical Soft Liquid Type Normal/Thin Recommendations SL Swallow Alt bite w/sip thru meal,Standard Aspiration Prec., Guidelines Reflux precautions Dysphagia Swallow Sitting Upright (90 deg),No Straw,Small Bites and Sips, Precautions/ Alternate Liquids/Solids Strategies Additional Consults Other Recommended Comment MBSS Plan Pt/Guardian verbally Yes ack understanding of dx/prognosis/ goals G -code Required No STG-Other Comment/Non-Specific Pt will complete instrumental assessment to further evaluate oropharyngeal phase of swallow. Electronic Wirer Goals Diet MS ground with Liquids Thin Liquids Education Instructions Discussed CSE results, benefits of MBSS, aspiration s/ provided sxs, risks, and precautions, as well as safest rec/PO rec prior to MBSS and compensatory strategies with pt, family, nursing, and care management all of which expressed understanding. Pt/Caregiver able to Able to recall/restate recall information Reinforcement needed No Speech & Language HPI History Present Illness Description of MANAGER FAMILY pulled following information from chart review and Patient Problem H&P, Kalia Magdaleno is a 84-year-old male with medical history significant for CAD with 8 stents (follows with [facility] [place]), COPD on room air, pulmonary hypertension, anxiety/depression, complex partial seizures, dementia who presents with 2-week onset of productive cough, shortness of breath. He states he had recently finished a course of Z-Dong and steroids last Saturday and was feeling well until yesterday when he began having yellow productive cough and shortness of breath with exertion. He describes the sputum as thick yellow. Denies nausea/vomiting, fever/ chills, chest pain, abdominal pain, urinary symptoms, constipation/diarrhea. Upon further inquiry, patient does note that he has been aspirating and apparently has had speech evaluation last year per at bedside . No dietary changes were recommended at that time. Has been adherent to his medications, no recent medication changes. Denies lower extremity pitting edema. Workup in the ED significant for WBC 12.4, AGAP 15.2 troponin 0.06 - 0.09, BNP 742, mini respiratory panel negative for COVID-19/influenza. Curb 65 score was 3. CXR suggests right lower lobe pneumonia. Given these findings, ED provider discussed case with's and hospital medicine team decided to admit patient for community-acquired pneumonia. Pt/Caregiver Pt has c/o globus sensation and coughing with food Concerns coming back up at times, also states he has to swallow 'hard' to get things to go down; no reports of gerd/ reflux/hx of recurrent upper respiratory infections Rehab Services Speech therapy Assessed General Information General Current Food NPO Consistancy Dentition Upper & Lower Dentures Oxygen Status Room Air Patient Orientation Person,Place,Time,Situation Ability to Follow Good Directions Communication No Impairment Ability Dysphagia:Food Presentation Evaluation Food Type Pureed,Mechanical Soft,Liquid,Pudding Dysphagia Evaluation Mr. Magdaleno was seen sitting upright in his bed with Summary family present at bedside for CSE. He was A&Ox4 and given extensive oral care prior to administering bolus trials. He reports no difficulty with eating/drinking, but states at times he feels things get stuck in his throat and has to swallow hard in order for it to clear. He also states there has been times where he coughs and food comes back up. Pt reports no GERD/ reflux, recurrent upper respiratory infections or unexplained weightloss, however, pt is currently admitted for RLL and has previously had a MBSS completed but was unable to recall results. No overt s/ sxs of aspiration were observed throughout CSE, but pt had multiple complaints of globus sensation and exhibited strained/effortful swallow on mechanical soft trials. Regular solids were not given 2' this. But he tolerated thins, puddings, and purees well at bedside. MANAGER FAMILY provided education on benefits of MBSS and pt/ family was agreeable, but expressed understanding in risk of aspiration prior to study being complete but wish to be placed on PO diet following heart cath. Mechanical soft ground with extra sauces/gravy and thin liquids with no straws was recommended. MANAGER FAMILY reviewed with pt, family, nursing and care management and all expressed understanding. MANAGER FAMILY will attempt to schedule MBSS for later today or . Stroke Dysphagia Assessment PHYSICIAN CERTIFICATION: I certify the specified therapy services for Kalia Magdaleno are required, authorized, and reviewed every 30 days.
[2024-11-10 16:16] LABS: Microscopic, Urine URINE MICROSCOPIC (MICROSCOPIC)
[2024-11-10 16:19] LABS: Bilirubin,Urine Negative (Negative); Color,Urine YELLOW (Yellow); Glucose,Urine (UA) Negative (Negative); Ketones,Urine Negative (Negative); Leukocyte Esterase,Urine Negative (Negative); PH,Urine 7.0 (5.0-8.5); Protein,Urine Negative (Negative); Specific Gravity, Urine <= 1.005 (1.005-1.030); Urobilinogen,Urine 2.0 EU/dl (0.2)
[2024-11-10 16:38] LABS: Bacteria,Urine 1+ /lpf; Squamous Epithelial Cell,Urine Occasional #/hpf (0-5); WBC,Urine Occasional #/hpf (0-3)
--- NOTE | 2024-11-10 17:30 | P.PN_ITS ---
Subjective *Date: 11/10/24 *Time: 17:30 Interval history: Patient feels much better today, breathing easier. Continue antibiotics. Cardiology planning for [facility] in the morning. N.p.o. at midnight. Exam Data for Last 24 hours Vital signs and Labs for Last 24 Hours: Temp Pulse Resp BP Pulse Ox O2 Del Method 98.2 F 72 16 95/44 L 95 Room Air 11/10/24 16:00 11/10/24 16:00 11/10/24 16:00 11/10/24 16:00 11/10/24 16:00 11/10/24 16:00 Laboratory Results - last 24 hr 11/09/24 16:11: Urine Color Yellow, Urine Appearance Clear, Urine pH 7.0, Ur Specific [place] <= 1.005, Urine Protein Negative, Urine Glucose (UA) Negative, Urine Ketones Negative, Urine Blood Negative, Urine Nitrate Negative, Urine Bilirubin Negative, Urine Urobilinogen 2.0, Ur Leukocyte Esterase Negative, Urine RBC 5-10, Urine WBC Occasional, Ur Squamous Epith Cells Occasional, Urine Bacteria 1+ 11/09/24 16:28: HCV Ab JUDIE w/Rflx PCR Qn Negative, HIV Ag/Ab Combo Qual Negative 11/09/24 20:07: Troponin I 0.09 H 11/09/24 22:44: Troponin I 0.18 H 11/10/24 05:32: WBC 9.2 D, RBC 4.01 L, Hgb 12.6 L D, Hct 37.5 L, MCV 93.5, MCH 31.7 H, MCHC 33.9, RDW 14.9, Plt Count 222 D, MPV 8.8, Neut % (Auto) 58.4, Lymph % (Auto) 19.7, [place] % (Auto) 7.9, Eos % (Auto) 10.9, Baso % (Auto) 0.7, Neut # (Auto) 5.4, Lymph # (Auto) 1.8, [place] # (Auto) 0.7, Eos # (Auto) 1.0 H, Baso # (Auto) 0.1, Sodium 140, Potassium 4.0, Chloride 106, Carbon Dioxide 26, Anion Gap 12.0, BUN 20, Creatinine 1.60 H, Estimated Creat Clear 40, Estimated GFR 42 L, Est GFR ( Amer) 50 L, Glucose 87, Calcium 8.1 L, Magnesium 2.1, Total Bilirubin 0.9, AST 29 D, ALT 21 D, Alkaline Phosphatase 89, Troponin I 0.33 H, C-Reactive Protein 36.1 H, Total Protein 5.8 L, Albumin 3.1 L D, Globulin 2.7, Albumin/Globulin Ratio 1.1, Procalcitonin 0.104 I & O for Last 24 hours: Intake & Output 11/07/24 11/08/24 11/09/24 11/10/24 23:59 23:59 23:59 23:59 Intake Total 300 / 500 850 / 850 Output Total 100 / 100 250 / 250 Balance 200 / 400 600 / 600 Weight 74.616 kg 79.243 kg Microbiology Reports for the Last 24 Hours: Microbiology 11/10/24 09:23 Sputum - Expectorated Sputum Gram Stain - Final Constitutional Constitutional: no acute distress *Routine HEENT Exam Head: Present normocephalic Eye: Present EOMI and PERRL ENT: Present mucous membranes moist *Routine Neck Exam Neck: Present supple; Absent lymphadenopathy *Routine Respiratory Exam Respiratory: Present CTA bilaterally *Routine Cardiovascular Exam Cardiovascular: Present RRR *Routine Abdominal Exam Abdominal: Present soft and normoactive bowel sounds; Absent tenderness *Routine Extremities Exam Extremities: Absent cyanosis, clubbing or edema *Routine Skin Exam Skin: Present warm; Absent rash *Routine Neurological Exam Neurological: Present alert and oriented X3 Assessment and Plan *Assessment and plan (1) Pneumonia: Status: Acute Category: Medical Code(s): J18.9 - Pneumonia, unspecified organism (2) NSTEMI (non-ST elevated myocardial infarction): Status: Acute Category: Medical Code(s): I21.4 - Non-ST elevation (NSTEMI) myocardial infarction (3) Aspiration pneumonia: Status: Acute Category: Medical Code(s): J69.0 - Pneumonitis due to inhalation of food and vomit (4) COPD (chronic obstructive pulmonary disease): Status: Chronic Qualifiers: COPD type: emphysema Emphysema type: centrilobular Qualified Code(s): J43.2 - Centrilobular emphysema Category: Medical Code(s): J44.9 - Chronic obstructive pulmonary disease, unspecified (5) Complex partial seizure disorder: Problem Comment: 10/30/2019: Currently stable on Lamictal generic 150 mg twice daily, most recent laboratory work, Lamictal level 5.7 within therapeutic range 09/26/2018: Sleep deprived/prolonged EEG, ZETO: Abnormal EEG. Asymmetrical, slow background rhythm. Focal slowing, independent transient sharps and occasional phase reversal seen over the bifrontal regions, left greater than right. Focal slowing in the [place] range seen over the left frontotemporal region. Cannot exclude focal cerebral dysfunction in this region. Status: Chronic Category: Medical Code(s): G40.209 - Localization-related (focal) (partial) symptomatic epilepsy and epileptic syndromes with complex partial seizures, not intractable, without status epilepticus (6) Asthma: Status: Acute Category: Medical Code(s): J45.909 - Unspecified asthma, uncomplicated Plan Kalia Magdaleno is a 84-year-old male with medical history significant for CAD with 8 stents (follows with [facility] [place]), asthma on room air, p ulmonary hypertension, anxiety/depression, complex partial seizures, dementia who presents with 2-week onset of productive cough, shortness of breath. He states he had recently finished a course of Z-Dong and steroids last Saturday and was feeling well until yesterday when he began having yellow productive cough and shortness of breath with exertion. He describes the sputum as thick yellow. Denies nausea/vomiting, fever/chills, chest pain, abdominal pain, urinary symptoms, constipation/diarrhea. Upon further inquiry, patient does note that he has been aspirating and apparently has had speech evaluation last year per at bedside. No dietary changes were recommended at that time. Has been adherent to his medications, no recent medication changes. Denies lower extremity pitting edema. Workup in the ED significant for WBC 12.4, AGAP 15.2 troponin 0.06 - 0.09, BNP 742, mini respiratory panel negative for COVID- 19/influenza. Curb 65 score was 3. CXR suggests right lower lobe pneumonia. Given these findings, ED provider discussed case with's and hospital medicine team decided to admit patient for community-acquired pneumonia. #Suspected aspiration pneumonia ? Presents with 2-week onset of progressively worsening yellow productive cough, shortness of breath. Initial curb 65 score was 3. Failed outpatient azithromycin, steroids. ? Initial WBC 12.4, no signs of sepsis. Vital signs stable. On room air. ? Patient endorses aspiration, speech therapy evaluation last year did not make dietary modifications at that time. ? Patient feels much better today, breathing easier. Previously improved to 9.2. CRP 36.1, procalcitonin normal. ? Continue IV Zosyn 3.375 g every 6 hours. ? Follow-up sputum, blood cultures. ? Speech therapy consulted, recommended mechanical soft diet with thin liquids. Will follow-up with modified barium swallow study. ? Follow-up morning CBC, procalcitonin, CRP. #NSTEMI, type I #History of CAD with stents ? Extensive coronary disease, and 8 stents in the past. Follows with [facility] [place]. ? Troponin peaked at 0.33, patient endorsing mild left-sided chest pressure. Will continue to trend, EKG without acute ischemic changes. ? ECHO with normal biventricular systolic function. BNP 742, no signs of volume overload. ? Cardiology consulted, plan for [facility] in the morning. N.p.o. at midnight. ? Continue home aspirin, statin. Ordered additional therapeutic Lovenox 80 mg. #Asthma #Pulmonary hypertension ? Stable. Continue home Advair. ? Hold home sildenafil 20 mg due to soft pressures at this time. #Anxiety/depression ? Continue home desvenlafaxine, buspirone, trazodone. #Complex partial seizures ? Continue home lamotrigine 150 mg twice daily. #Dementia ? Continue home memantine. Full code DVT prophylaxis: Therapeutic Lovenox
[2024-11-10] MEDS: TRAZODONE 50MG TABLET 50 MG PO ×2 (20:20→21:54)
[2024-11-10] MEDS: LAMOTRIGINE 100 MG 150 MG PO (20:20)
[2024-11-10] MEDS: ATORVASTATIN 40MG TABLET 40 MG PO (20:21)
[2024-11-10] MEDS: MEMANTINE 10MG TABLET 10 MG PO (20:21)
[2024-11-10] MEDS: GABAPENTIN 300MG CAPSULE 300 MG PO (20:21)
[2024-11-10] MEDS: BUSPIRONE HCL 5 MG TABLET PO (20:21)
[2024-11-10] MEDS: BRIMONIDINE 0.2% 1 EACH EYE-BOTH (20:23)
--- NOTE | 2024-11-10 23:08 | CA_ITS ---
APPROVED REPORT EXAM: Comprehensive 2D, Doppler, and color-flow Echocardiogram Cushion Spring Assembler: Catarina Martínez CRT Ht: 6 ft 0 in Wt: 164lbs BSA: 1.96 BP: 109/55 mmHg Indications: CVA/TIA, NSTEMI, CAD, Hypertension/HDD, 8 stents 2D Dimensions LA Volume 23.10 mL LA Volume Index 11.50 mL/m2 (M/F) 16-34 M-Mode Dimensions RVDd 2.93 cm (0.9-2.6) LA Diam 3.58 cm (1.9-4.0) LVDd 5.21 cm (3.5-5.7) LVDs 3.43 cm (3.5-5.7) IVSd 1.39 cm (0.6-1.1) PWd 0.61 cm (0.6-1.1) EF (Teich) 62.70% FS 34.20% EDV (Teich) 130.10 mL TAPSE 2.10 (<1.7) ESV (Teich) 48.50 mL LV Diastology E Decel Time 360 (160-240 msec) E/A Ratio 0.68 MED A' 12.60 cm/s LAT A' 12.70 cm/s Aortic Valve AI PHT 544.00 ms AO Peak GR. 6.80 mmHg Mitral Valve MV A Velocity 86.0 (40-130 cm/s) E/A Ratio 0.68 Pulmonary Valve PV Peak Velocity 123.0 (50-150 cm/s) Tricuspid Valve TR P. Velocity 290.00 cm/s RAP Estimate 10.00 mmHg RVSP 43.50 mmHg Left Ventricle The left ventricle is normal size. Left ventricular systolic function is normal. The left ventricular ejection fraction is within the normal range. There is increased left ventricular wall thickness. There is normal LV segmental wall motion. Transmitral Doppler flow pattern suggests impaired LV relaxation. LVEF is 55% Right Ventricle The right ventricle is normal size. The right ventricular systolic function is normal. Atria Left atrium is mildly dilated. Right atrium is mildly dilated. There is no color Doppler evidence of interatrial shunt. Aortic Valve The aortic valve is mildly thickened. There is no hemodynamically significant aortic valvular stenosis. Mild aortic regurgitation is present. Mitral Valve The mitral valve is normal in structure. No evidence of mitral valve stenosis. Mild mitral regurgitation is present. Tricuspid Valve The tricuspid valve leaflets are thin and pliable. Mild tricuspid regurgitation. RVSP is 30-35 mmHg. Pulmonic Valve The pulmonary valve is grossly normal in structure. Trace pulmonic valve regurgitation is present. Great Vessels The aortic root is normal in size. The ascending aorta is mildly dilated, measuring 4.1 cm in diameter. IVC is normal in size and collapses >50% with inspiration. Pericardium There is no pericardial effusion. Other Information Study Quality: Technically Difficult Conclusion Normal biventricular systolic function. Biatrial dilation. Mild AI, mild MR, mild TR. The ascending aorta is mildly dilated, measuring 4.1 cm in diameter. Electronically signed by : Leah Falk MD 11/10/2024 11:10:05
[2024-11-11] VITALS (19 sets, daily range): BP systolic 89–120; BP diastolic 45–64; PULSE 57–75; RESP 16–20; TEMP 36.5–36.6; O2SAT 88–99; BMI 23.4
[2024-11-11] MEDS: PIPERCILLIN/TAZO 3.375 GM in 0.9 % SODIUM CHLORIDE 50 ML IV ×3 (01:09→14:45)
--- NOTE | 2024-11-11 04:11 | PC.NURSE ---
Alert and oriented. Ambulates to the restroom with walker standby assist. 2L NC while awake, CPAP while sleeping. Patient ambulated to the restroom without nasal cannula, O2 sat dropped to 81% on room air, patient complained of some SOA, placed back on 2L, O2 sat 96%. Diminished lung sounds. No complaints of pain this shift. Patient has rested well throughout the night. NPO since midnight for planned heart cath today. Call light in reach.
[2024-11-11 06:04] LABS: Cholesterol 95 mg/dl (140-200); HDL Cholesterol 31 mg/dl (40-60); Triglycerides 60 mg/dl (30-150)
[2024-11-11 06:33] LABS: Thyroid Stimulating Hormone 2.16 uIU/mL (0.465-4.68)
[2024-11-11 07:22] LABS: Hematocrit 34.4 % (42.0-52.0); Hemoglobin 11.4 g/dL (14.1-18.0); Immature Granulocytes % 1.9 %; Mean Corpuscular HGB Conc 33.1 g/dL (31.8-35.4); Mean Corpuscular Hemoglobin 31.8 pg (27.0-31.2); Mean Corpuscular Volume 95.8 fl (80-94); Nucleated Red Blood Cells % 0 %; Platelet Count 231 K/mm3 (142-424); Red Blood Count 3.59 M/mm3 (4.60-6.20); Red Cell Distribution Width-SD 53.1 fL; White Blood Count 9.1 K/mm3 (4.8-10.8)
--- NOTE | 2024-11-11 07:23 | IR_ITS ---
APPROVED REPORT Patient Location: Inpatient Director Video: Tomy Tracey RT (R) PROCEDURES 1. Left heart catheterization 2. Selective coronary arteriography 3. Left ventriculography INDICATION 1. Non-Q wave myocardial infarction, 2. Coronary artery disease SCAI INDICATION Patient is an 84-year-old white male with known coronary artery disease who presented with increasing shortness of breath. Pneumonia but also had a significant leak at cardiac enzymes. Secondary to this referred for left heart catheterization Informed consent was obtained prior to the procedure. COMPLICATIONS None Estimated Blood Loss: Less than 10 mls TECHNIQUE One percent lidocaine used to anesthetize the right anterior aspect of the wrist. The right radial artery was accessed via the Seldinger technique. A 6 Bengali sheath was placed in the right radial artery. 2.5 mg of Verapamil, 800 mcg of nitroglycerin, 1mg Lidocaine and 5000 U Heparin were given through the arterial sheath. The JL3 catheter was also used to perform left heart catheterization, left ventriculogram and selective coronary angiogram. At the end of the procedure the sheath was removed good hemostasis was achieved using Traclet band, patient was transferred to the postop holding area in stable condition. ANGIOGRAPHIC RESULTS The left main artery 20% stenoses The left anterior descending artery Had stents noted throughout the ostial/proximal slight to mid vessel. Stents with smooth 20% in-stent stenosis. Excellent flow into the diagonal branch as well into the mid and distal left anterior descending with no significant stenoses The circumflex artery Large in size. Stent in the proximal vessel free of disease. Small first obtuse marginal branch angiographically normal. Second obtuse marginal branch moderate in size. After the second obtuse marginal branch there is smooth 20 to 30% diffuse stenosis throughout the mid left circumflex. Normal flow into the distal vessel The right coronary artery Large and dominant. Stents noted throughout the proximal/mid vessel free of disease. Smooth 20% distal stenosis. Normal flow into the posterior descending artery and posterior lateral branches The CASAS ventriculogram reveals Normal left ventricular systolic function with an ejection fraction of 60%. No wall motion abnormalities. No gradient on pullback of the catheter The left ventricular end-diastolic pressure 14 Radial sheath removed and radial band placed without difficulty IMPRESSION 1. Mild diffuse coronary arteries 2. Patent stents throughout the ostial/proximal/mid left anterior descending 3. Patent stent in the proximal left circumflex 4. Patent stents throughout the proximal/mid large dominant right coronary artery 5. Normal appendicular systolic function 6. Mild diffuse coronary calcification 7. Mild elevation in left ventricular end-diastolic pressure 8. Successful placement of a radial band on the right radial artery PLAN 1. Patient will continue with medical therapy. Stents are all patent. Mild diffuse disease. 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 Normal left ventricular systolic function. All other stents are patent. Mild smooth in-stent thinning in the left anterior descending but nothing greater than 20%. Will continue with aggressive medical therapy. No intervention needed at this time. Follow-up in cardiology clinic in 1 to 2 weeks for further evaluation and treatment Electronically signed by : Billy Escalera MD 11/11/2024 13:47:36
[2024-11-11 07:32] LABS: Anion Gap 8.9 mEq/L (5-15); Blood Urea Nitrogen 19 mg/dl (9-20); Calcium 7.5 mg/dl (8.4-10.2); Carbon Dioxide 24 mmol/L (22.0-30.0); Chloride 107 mmol/L (98-107); Creatinine Clearance Estimated 40 mL/min (50-200); Creatinine,Serum 1.60 mg/dl (0.66-1.25); Estimated Glomerular Filt Rate 42 ml/min (>60); GFR (African American) 50 ML/MIN (>60); Glucose 111 mg/dl (74-100); Potassium 3.9 mmoL/L (3.5-5.1); Sodium 136 mmol/L (136-145)
--- NOTE | 2024-11-11 08:56 | EXP.CARD.PN ---
Subjective Subjective Date: 11/11/24 Time: 08:00 Principal diagnosis: Pneumonia, acute myocardial injury Interval history: Doing well. Morning labs reviewed and stable. Patient awaiting left heart catheterization today. Exam Data for Last 24 hours Vital signs and Labs for Last 24 Hours: Temp Pulse Resp BP Pulse Ox O2 Del Method O2 Flow Rate 97.7 F 57 L 18 98/45 L 98 Nasal Cannula 2 11/11/24 08:00 11/11/24 08:00 11/11/24 08:00 11/11/24 08:00 11/11/24 08:00 11/11/24 08:00 11/11/24 08:00 FiO2 25 11/11/24 02:30 Laboratory Results - last 24 hr 11/09/24 16:11: Urine Color Yellow, Urine Appearance Clear, Urine pH 7.0, Ur Specific [place] <= 1.005, Urine Protein Negative, Urine Glucose (UA) Negative, Urine Ketones Negative, Urine Blood Negative, Urine Nitrate Negative, Urine Bilirubin Negative, Urine Urobilinogen 2.0, Ur Leukocyte Esterase Negative, Urine RBC 5-10, Urine WBC Occasional, Ur Squamous Epith Cells Occasional, Urine Bacteria 1+ 11/10/24 05:32: Troponin I 0.33 H 11/11/24 05:35: WBC 9.1, RBC 3.59 L, Hgb 11.4 L, Hct 34.4 L, MCV 95.8 H, MCH 31.8 H, MCHC 33.1, RDW 15.2, Plt Count 231, MPV 9.3, Neut % (Auto) 61.4, Lymph % (Auto) 18.2, [place] % (Auto) 9.4 H, Eos % (Auto) 8.7, Baso % (Auto) 0.4, Neut # (Auto) 5.6, Lymph # (Auto) 1.7, [place] # (Auto) 0.9, Eos # (Auto) 0.8 H, Baso # (Auto) 0.0, Sodium 136, Potassium 3.9, Chloride 107, Carbon Dioxide 24, Anion Gap 8.9, BUN 19, Creatinine 1.60 H, Estimated Creat Clear 40, Estimated GFR 42 L, Est GFR ( Amer) 50 L, Glucose 111 H, Calcium 7.5 L, Triglycerides 60, Cholesterol 95 L, LDL Cholesterol Direct 38.44 L, VLDL Cholesterol 12, HDL Cholesterol 31 L, Cholesterol/HDL Ratio 3.1, TSH 2.16 I & O for Last 24 hours: Intake & Output 11/08/24 11/09/24 11/10/24 11/11/24 23:59 23:59 23:59 23:59 Intake Total 300 / 500 1440 / 1540 150 / 150 Output Total 100 / 100 250 / 250 Balance 200 / 400 1190 / 1290 150 / 150 Weight 164 lb 8 oz 174 lb 11.2 oz 173 lb 3.2 oz Microbiology Reports for the Last 24 Hours: Microbiology 11/10/24 09:23 Sputum - Expectorated Sputum Gram Stain - Final 11/10/24 09:23 Sputum - Expectorated Sputum Sputum Culture - Preliminary Gram Negative Rods Constitutional Constitutional: no acute distress *Routine Respiratory Exam Respiratory: Present wheezes and symmetric chest movement *Routine Cardiovascular Exam Cardiovascular: Present RRR, Normal S1 and Normal S2 *Routine Abdominal Exam Abdominal: Present soft and normoactive bowel sounds; Absent tenderness *Routine Extremities Exam Extremities: Present full ROM and normal capillary refill; Absent edema *Routine Skin Exam Skin: Present intact, dry and warm Detailed Neck Exam: Thyroids Thyroid: Absent bruit Progress Note: A&P Assessment and plan (1) Pneumonia: Status: Acute (2) NSTEMI (non-ST elevated myocardial infarction): Status: Acute (3) Aspiration pneumonia: Status: Acute (4) COPD (chronic obstructive pulmonary disease): Status: Chronic (5) Complex partial seizure disorder: Problem details: 10/30/2019: Currently stable on Lamictal generic 150 mg twice daily, most recent laboratory work, Lamictal level 5.7 within therapeutic range 09/26/2018: Sleep deprived/prolonged EEG, ZETO: Abnormal EEG. Asymmetrical, slow background rhythm. Focal slowing, independent transient sharps and occasional phase reversal seen over the bifrontal regions, left greater than right. Focal slowing in the [place] range seen over the left frontotemporal region. Cannot exclude focal cerebral dysfunction in this region. Status: Chronic (6) Asthma: Status: Acute Assessment and Plan Assessment and Plan for All Diagnoses:: Right sided pneumonia Hx of CAD Elevated trop/acute myocardial injury Will defer antibiotic management to primary service/pulm Elevated troponin in the setting of acute pneumonia Does endorse some left-sided chest pressure History of 8 stents EKG negative for acute ischemic changes Echo normal biventricular systolic function with biatrial dilation, mild AI/MR/TR Continue aspirin and statin. Left heart cath pending 11/11/2024 @ 1444 cardiology summary-s/p medical management [facility] this afternoon, see report below. Cardiology will sign off. Please continue aspirin and statin. Patient can follow up in cardiology clinic in 1-2 weeks. [facility] 11/11/2024: IMPRESSION 1. Mild diffuse coronary arteries 2. Patent stents throughout the ostial/proximal/mid left anterior descending 3. Patent stent in the proximal left circumflex 4. Patent stents throughout the proximal/mid large dominant right coronary artery 5. Normal appendicular systolic function 6. Mild diffuse coronary calcification 7. Mild elevation in left ventricular end-diastolic pressure 8. Successful placement of a radial band on the right radial artery PLAN 1. Patient will continue with medical therapy. Stents are all patent. Mild diffuse disease. Left anterior descending stents pinched a septal company manager but there is no pinching of any diagonal branch and there is excellent flow into the mid and distal vessel and into the diagonal branches themselves. Normal left ventricular systolic function. All other stents are patent. Mild smooth in-stent thinning in the left anterior descending but nothing greater than 20%. Will continue with aggressive medical therapy. No intervention needed at this time. Follow-up in cardiology clinic in 1 to 2 weeks for further evaluation and treatment
[2024-11-11] MEDS: ASPIRIN EC 81MG TABLET 81 MG PO (08:59)
[2024-11-11] MEDS: MEMANTINE 10MG TABLET 10 MG PO (08:59)
[2024-11-11] MEDS: BUSPIRONE HCL 5 MG TABLET PO (08:59)
[2024-11-11] MEDS: VENLAFAXINE 37.5MG TABLET 37.5 MG PO (08:59)
[2024-11-11] MEDS: BRIMONIDINE 0.2% OPHTH SOLN 5ML BOTTLE OP (09:00)
--- NOTE | 2024-11-11 09:53 | EXP.PULM.CON ---
History of Present Illness History of present illness: Mr. Magdaleno is a 84-year-old male with history of asthma COPD overlap syndrome, cervical spondylosis with polyneuropathy bilateral lower extremity weakness, baseline not using any oxygen supplementation, history of sleep apnea using NIV, presented to the ER with 2-week history of worsening shortness of breath productive cough and pulmonary was called for further evaluation and management. Patient recently completed azithromycin course for presumed pneumonia as an outpatient basis. [facility] Disclaimer: The information contained in this section may have been updated after the patient was seen, as this information can be updated by other users. Medical History Tinnitus of right ear Sensorineural hearing loss (SNHL) of both ears Hearing loss Tinnitus Restrictive lung disease History of 2019 novel coronavirus disease (COVID-19) Asthma-COPD overlap syndrome Abnormal PFT Moderate persistent asthma ILD (interstitial lung disease) Centrilobular emphysema Dyspnea on exertion LAURA on CPAP Bradycardia Surgical History History of cardiac cath H/O cervical spine surgery Family History Coronary artery disease Hypertension Social History (Updated 11/09/24 @ 20:28 by Tiffany Walsh RN) Smoking Status: Never smoker alcohol intake: never counseling provided: none substance use type: denies use current occupational status: retired Travel in the last 8 weeks?: None household members: spouse housing: house caffeine: Yes Review of Systems Constitutional Constitutional: Reports anorexia, Reports body ache(s) and Reports fatigue Eyes Eyes: Denies eye discharge, Denies dry eyes, Denies irritation and Denies itchy eyes ENT Ears, Nose, Mouth, and Throat: Denies epistaxis, Denies facial pain, Denies lip swelling and Denies throat swelling *Cardiovascular Cardiovascular: Reports dyspnea and Reports dyspnea on exertion *Respiratory Respiratory: Reports change in phlegm color, Reports chest congestion, Reports cough, Reports dyspnea, Reports dyspnea on exertion, Reports excessive phlegm production, Denies hemoptysis, Denies pain on inspiration, Denies pain with cough and Reports wheezing *Gastrointestinal Gastrointestinal: Denies abdominal pain, Denies belching and Denies cramping *Musculoskeletal Musculoskeletal: Reports back pain, Reports myalgias and Reports other (No small joint swelling or Pain) Psychiatric Psychiatric: Denies homicidal ideation and Denies suicidal ideation Endocrine Endocrine: Reports fatigue and Denies heat intolerance Hematologic/Lymphatic Hematologic/Lymphatic: Denies easy bleeding and Denies lymphadenopathy Allergic/Immunologic Allergic/Immunologic: Denies itchy eyes, Denies lip swelling, Denies throat swelling and Reports wheezing Pulmonology Exam Inpatient Vital signs and Labs for Last 24 Hours: Temp Pulse Resp BP Pulse Ox O2 Del Method O2 Flow Rate 97.7 F 57 L 18 98/45 L 98 Room Air 2 11/11/24 08:00 11/11/24 08:00 11/11/24 08:00 11/11/24 08:00 11/11/24 08:00 11/11/24 09:00 11/11/24 08:40 FiO2 25 11/11/24 02:30 Laboratory Results - last 24 hr 11/09/24 16:11: Urine Color Yellow, Urine Appearance Clear, Urine pH 7.0, Ur Specific [place] <= 1.005, Urine Protein Negative, Urine Glucose (UA) Negative, Urine Ketones Negative, Urine Blood Negative, Urine Nitrate Negative, Urine Bilirubin Negative, Urine Urobilinogen 2.0, Ur Leukocyte Esterase Negative, Urine RBC 5-10, Urine WBC Occasional, Ur Squamous Epith Cells Occasional, Urine Bacteria 1+ 11/11/24 05:35: WBC 9.1, RBC 3.59 L, Hgb 11.4 L, Hct 34.4 L, MCV 95.8 H, MCH 31.8 H, MCHC 33.1, RDW 15.2, Plt Count 231, MPV 9.3, Neut % (Auto) 61.4, Lymph % (Auto) 18.2, [place] % (Auto) 9.4 H, Eos % (Auto) 8.7, Baso % (Auto) 0.4, Neut # (Auto) 5.6, Lymph # (Auto) 1.7, [place] # (Auto) 0.9, Eos # (Auto) 0.8 H, Baso # (Auto) 0.0, Sodium 136, Potassium 3.9, Chloride 107, Carbon Dioxide 24, Anion Gap 8.9, BUN 19, Creatinine 1.60 H, Estimated Creat Clear 40, Estimated GFR 42 L, Est GFR ( Amer) 50 L, Glucose 111 H, Calcium 7.5 L, Triglycerides 60, Cholesterol 95 L, LDL Cholesterol Direct 38.44 L, VLDL Cholesterol 12, HDL Cholesterol 31 L, Cholesterol/HDL Ratio 3.1, TSH 2.16 I & O for Labs for Last 24 Hours: Intake & Output 11/08/24 11/09/24 11/10/24 11/11/24 23:59 23:59 23:59 23:59 Intake Total 300 / 500 1440 / 1540 150 / 150 Output Total 100 / 100 250 / 250 Balance 200 / 400 1190 / 1290 150 / 150 Weight 164 lb 8 oz 174 lb 11.2 oz 173 lb 3.2 oz Microbiology Reports for the Last 24 Hours: Microbiology 11/10/24 09:23 Sputum - Expectorated Sputum Gram Stain - Final 11/10/24 09:23 Sputum - Expectorated Sputum Sputum Culture - Preliminary Gram Negative Rods Constitutional: Present mild distress Head: Present normocephalic and atraumatic ENT: Present normal exam, normal oropharynx and mucous membranes moist Neck: Present normal inspection and full ROM Respiratory: Present able to speak in complete sentences; Absent respiratory distress or wheezes Cardiac: Present S1/S2, Tachycardia and radial pulses present GI: Present soft and distention; Absent tenderness or guarding Skin: Present intact; Absent cyanosis or jaundice Neuro: Present alert, awake and oriented x 3 Extremities: Present normal inspection; Absent clubbing or cyanosis Psychiatric: Present normal affect and cooperative Meds Home Medications and Allergies Home Medications ?Medication ?Instructions ?Recorded ?Confirmed ?Type aspirin 81 mg tablet,delayed 81 mg PO DAILY Heart disease 03/19/17 11/09/24 History release (Adult Low Dose Aspirin) sacubitril 24 mg-valsartan 26 mg 1 tab PO BID Heart failure 09/21/21 11/10/24 History tablet sildenafil (pulm.hypertension) 20 20 mg PO DIRECTED PRN sexual 02/06/22 11/09/24 Rx mg tablet activity #40 tabs cholecalciferol (vitamin D3) 25 25 mcg PO DAILY 07/26/22 11/09/24 History mcg (1,000 unit) capsule gabapentin 300 mg capsule 300 mg PO HS #30 caps 08/27/23 11/09/24 Rx (Neurontin) lamotrigine 100 mg tablet 150 mg (1.5 x 100 mg) PO BID 06/10/24 11/09/24 Rx Complex partial seizure #270 tabs brimonidine 0.2 % eye drops 1 drp Eye-Both BID 07/06/24 11/09/24 History buspirone 5 mg tablet 5 mg PO BID 07/06/24 11/09/24 History desvenlafaxine succinate 50 mg 50 mg PO DAILY 07/06/24 11/09/24 History tablet,extended release 24 hr diazepam 2 mg tablet 2 mg PO DAILY PRN Anxiety 07/06/24 11/09/24 History fluticasone 250 mcg-salmeterol 50 1 inh inhalation BID 90 days #180 07/06/24 11/09/24 Rx mcg/dose blistr powdr for ea inhalation latanoprost 0.005 % eye drops 1 drp Eye-Both HS 07/06/24 11/09/24 History atorvastatin 40 mg tablet 40 mg PO HS 11/09/24 11/10/24 History ondansetron 4 mg disintegrating 4 mg PO Q8 PRN Nausea And Vomiting 11/09/24 11/10/24 History tablet trazodone 50 mg tablet 100 mg PO HS PRN Sleep 11/09/24 11/10/24 History albuterol sulfate 90 mcg/actuation 2 inh inhalation Q4HP PRN 11/10/24 11/10/24 History aerosol inhaler shortness of breath or wheezing memantine 10 mg tablet 10 mg PO BID 11/10/24 11/09/24 History New Prescriptions to Start Prescriptions: Allergies Allergy/AdvReac Type Severity Reaction Status Date / Time levetiracetam (From [facility]) AdvReac Severe anger, Verified 10/06/24 14:44 depression, gait disturbance Results Laboratory Findings 11/11/24 05:35 11/11/24 05:35 Abnormal lab findings: Abnormal Labs 11/09/24 11/09/24 11/09/24 16:28 20:07 22:44 WBC 12.4 H RBC Hgb Hct MCV MCH 31.5 H [place] % (Auto) Neut # (Auto) 9.4 H Eos # (Auto) 0.8 H Anion Gap 15.2 H BUN 24 H Creatinine 1.60 H Estimated GFR 42 L Est GFR ( Amer) 50 L Glucose 102 H Calcium Troponin I 0.06 H 0.09 H 0.18 H C-Reactive Protein NT-Pro-B Natriuret Pep 742 H Total Protein Albumin Globulin 3.6 H Cholesterol LDL Cholesterol Direct HDL Cholesterol 11/10/24 11/11/24 05:32 05:35 WBC RBC 4.01 L 3.59 L Hgb 12.6 L D 11.4 L Hct 37.5 L 34.4 L MCV 95.8 H MCH 31.7 H 31.8 H [place] % (Auto) 9.4 H Neut # (Auto) Eos # (Auto) 1.0 H 0.8 H Anion Gap BUN Creatinine 1.60 H 1.60 H Estimated GFR 42 L 42 L Est GFR ( Amer) 50 L 50 L Glucose 111 H Calcium 8.1 L 7.5 L Troponin I 0.33 H C-Reactive Protein 36.1 H NT-Pro-B Natriuret Pep Total Protein 5.8 L Albumin 3.1 L D Globulin Cholesterol 95 L LDL Cholesterol Direct 38.44 L HDL Cholesterol 31 L Assessment and Plan *Assessment and plan (1) Pneumonia: Status: Acute Category: Medical Code(s): J18.9 - Pneumonia, unspecified organism Plan Mr. Magdaleno is a 84-year-old male with history of asthma COPD overlap syndrome, cervical spondylosis with polyneuropathy bilateral lower extremity weakness, baseline not using any oxygen supplementation, history of sleep apnea using NIV, presented to the ER with 2-week history of worsening shortness of breath productive cough and pulmonary was called for further evaluation and management. Patient recently completed azithromycin course for presumed pneumonia as an outpatient basis. Afebrile. Hemodynamically stable. Mild neutrophilic predominant leukocytosis upon admission improving. COVID-19 and flu PCR panel negative. Chest x-ray upon admission right lower lobe patchy airspace disease along with atelectasis. Sputum cultures preliminary showing gram-negative rods. Currently receiving Zosyn. Admits improving respiratory symptoms. On room air saturating 96% this morning. Minimal respiratory distress. Chest x-ray from this morning reviewed, improving right lower lobe airspace disease. Plan: Antibiotics can be weaned to levofloxacin to complete a total of 5-day course from pulmonary standpoint for the noted right lower lobe pneumonia. Follow-up final sputum culture results. Continue home Advair inhaler 250 twice daily along with DuoNebs 4 times daily as needed # Thank you for involving pulmonary in this patient care. Will follow the patient in pulmonary clinic 1 to 2 weeks postdischarge.
--- NOTE | 2024-11-11 09:58 | XR_ITS ---
FINAL REPORT CLINICAL HISTORY: PNM COMPARISON: 11/09/2024 FINDINGS: A portable view of the chest was obtained. Cardiac and mediastinal silhouettes are within normal limits. There are coarse interstitial markings bilaterally. Interval improvement but not resolution of the left basilar opacity. There may be small pleural effusions. There is no pneumothorax.. . IMPRESSION: Interval improvement without resolution of left basilar opacity. Possible small pleural effusions. Reviewed, Interpreted and Dictated by Lucero Stuart MD Transcribed by Imelda Lopez Authenticated and . [facility]
[2024-11-11] MEDS: NITROGLYCERIN 800MCG/8ML SYR (CATH LAB) 800 MCG IA (13:31)
[2024-11-11] MEDS: HEPARIN 1,000 UNITS/500ML NS (CATH LAB) 3000 UNIT IV (13:32)
[2024-11-11] MEDS: LIDOCAINE 1% 10ML MDV 10 ML IJ (13:32)
[2024-11-11] MEDS: VERAPAMIL 2.5MG/ML 2ML VIAL 2.5 MG IV (13:32)
[2024-11-11] MEDS: HEPARIN 1,000 UNITS/ML 10ML VIAL (CATH LAB) 5000 UNIT IV (13:32)
[2024-11-11] MEDS: 0.9 % SODIUM CHLORIDE 500 ML 25 ML IV (13:33)
[2024-11-11] MEDS: MIDAZOLAM HCL 1MG/ML 5ML VIAL 1 MG IV (13:43)
[2024-11-11] MEDS: FENTANYL 100MCG/2ML VIAL 50 MCG IV (13:43)
[2024-11-11] MEDS: IOPAMIDOL-370 (76%);100ML BOTTLE 50 ML IV (13:55)
--- NOTE | 2024-11-11 15:31 | EXP.DC.SUM ---
General Admission date:: 11/10/24 HPI HPI HPI: Kalia Magdaleno is a 84-year-old male with medical history significant for CAD with 8 stents (follows with [facility]), COPD on room air, pulmonary hypertension, anxiety/depression, complex partial seizures, dementia who presents with 2-week onset of productive cough, shortness of breath. He states he had recently finished a course of Z-Dong and steroids last Saturday and was feeling well until yesterday when he began having yellow productive cough and shortness of breath with exertion. He describes the sputum as thick yellow. Denies nausea/vomiting, fever/chills, chest pain, abdominal pain, urinary symptoms, constipation/diarrhea. Upon further inquiry, patient does note that he has been aspirating and apparently has had speech evaluation last year per at bedside. No dietary changes were recommended at that time. Has been adherent to his medications, no recent medication changes. Denies lower extremity pitting edema. Workup in the ED significant for WBC 12.4, AGAP 15.2 troponin 0.06 - 0.09, BNP 742, mini respiratory panel negative for COVID-19/influenza. Curb 65 score was 3. CXR suggests right lower lobe pneumonia. Given these findings, ED provider discussed case with's and hospital medicine team decided to admit patient for community-acquired pneumonia. Hospital Course Hospital Course Hospital Course: Kalia Magdaleno is a 84-year-old male with medical history significant for CAD with 8 stents (follows with [facility]), asthma on room air, pulmonary hypertension, anxiety/depression, complex partial seizures, dementia who presents with 2-week onset of productive cough, shortness of breath. He states he had recently finished a course of Z-Dong and steroids last Saturday and was feeling well until yesterday when he began having yellow productive cough and shortness of breath with exertion. He describes the sputum as thick yellow. Denies nausea/vomiting, fever/chills, chest pain, abdominal pain, urinary symptoms, constipation/diarrhea. Upon further inquiry, patient does note that he has been aspirating and apparently has had speech evaluation last year per at bedside. No dietary changes were recommended at that time. Has been adherent to his medications, no recent medication changes. Denies lower extremity pitting edema. Workup in the ED significant for WBC 12.4, AGAP 15.2 troponin 0.06 - 0.09, BNP 742, mini respiratory panel negative for COVID-19/influenza. Curb 65 score was 3. CXR suggests right lower lobe pneumonia. Given these findings, ED provider discussed case with's and hospital medicine team decided to admit patient for community-acquired pneumonia. #Suspected aspiration pneumonia ? Presents with 2-week onset of progressively worsening yellow productive cough, shortness of breath. Initial curb 65 score was 3. Failed outpatient azithromycin, steroids. ? Initial WBC 12.4, no signs of sepsis. Vital signs stable. On room air. ? Patient endorses aspiration, speech therapy evaluation last year did not make dietary modifications at that time. ? Speech therapy consulted, recommended mechanical soft diet with thin liquids. Speech therapy not available today, modified barium swallow study will be scheduled on an outpatient basis. ? Clinically improved with IV Zosyn, breathing better and easier. On room air. WBC improved to 9.1, no signs of sepsis. ? Discussed with pulmonology, recommended levofloxacin for total of 7 days. ? Discharged with levofloxacin 750 mg every 48 hours for 4 more days. ? Will follow-up with pulmonology within 2 weeks. Will follow-up on sputum cultures, growing gram-negative rods. #NSTEMI, type I #History of CAD with stents #Hypertension ? Extensive coronary disease, and 8 stents in the past. Follows with [facility] [place]. ? Troponin peaked at 0.33, endorsed left-sided chest pressure. EKG without acute ischemic changes. NSTEMI treated with therapeutic Lovenox. ? ECHO 11/10/2024 with normal biventricular systolic function. BNP 742, no signs of volume overload. ? Cardiology consulted, s/p PCI with nonocclusive coronary arteries. ? Continue home aspirin, statin. ? Entresto held due to soft pressures during admission. ? Will follow-up with cardiology within 1 week. #Asthma #Pulmonary hypertension ? Stable. Continue home Advair. ?Continue home sildenafil 20 mg due to soft pressures at this time. #Anxiety/depression ? Continue home desvenlafaxine, buspirone, trazodone. #Complex partial seizures ? Continue home lamotrigine 150 mg twice daily. #Dementia ? Continue home memantine. Total time spent on discharge: 32 minutes on chart review, counseling, documentation, and direct care with patient. Exam Data for Last 24 hours Vital signs and Labs for Last 24 Hours: Temp Pulse Resp BP Pulse Ox O2 Del Method O2 Flow Rate 97.9 F 73 20 120/61 99 Room Air 2 11/11/24 12:00 11/11/24 14:05 11/11/24 14:05 11/11/24 14:05 11/11/24 14:05 11/11/24 15:05 11/11/24 14:05 FiO2 25 11/11/24 02:30 Laboratory Results - last 24 hr 11/09/24 16:11: Urine Color Yellow, Urine Appearance Clear, Urine pH 7.0, Ur Specific Willis <= 1.005, Urine Protein Negative, Urine Glucose (UA) Negative, Urine Ketones Negative, Urine Blood Negative, Urine Nitrate Negative, Urine Bilirubin Negative, Urine Urobilinogen 2.0, Ur Leukocyte Esterase Negative, Urine RBC 5-10, Urine WBC Occasional, Ur Squamous Epith Cells Occasional, Urine Bacteria 1+ 11/11/24 05:35: WBC 9.1, RBC 3.59 L, Hgb 11.4 L, Hct 34.4 L, MCV 95.8 H, MCH 31.8 H, MCHC 33.1, RDW 15.2, Plt Count 231, MPV 9.3, Neut % (Auto) 61.4, Lymph % (Auto) 18.2, [place] % (Auto) 9.4 H, Eos % (Auto) 8.7, Baso % (Auto) 0.4, Neut # (Auto) 5.6, Lymph # (Auto) 1.7, [place] # (Auto) 0.9, Eos # (Auto) 0.8 H, Baso # (Auto) 0.0, Sodium 136, Potassium 3.9, Chloride 107, Carbon Dioxide 24, Anion Gap 8.9, BUN 19, Creatinine 1.60 H, Estimated Creat Clear 40, Estimated GFR 42 L, Est GFR ( Amer) 50 L, Glucose 111 H, Calcium 7.5 L, Triglycerides 60, Cholesterol 95 L, LDL Cholesterol Direct 38.44 L, VLDL Cholesterol 12, HDL Cholesterol 31 L, Cholesterol/HDL Ratio 3.1, TSH 2.16 I & O for Last 24 hours: Intake & Output 11/08/24 11/09/24 11/10/24 11/11/24 23:59 23:59 23:59 23:59 Intake Total 300 / 500 1440 / 1540 1520 / 1520 Output Total 100 / 100 250 / 250 0 / 0 Balance 200 / 400 1190 / 1290 1520 / 1520 Weight 74.616 kg 79.243 kg 78.562 kg Microbiology Reports for the Last 24 Hours: Microbiology 11/10/24 09:23 Sputum - Expectorated Sputum Gram Stain - Final 11/10/24 09:23 Sputum - Expectorated Sputum Sputum Culture - Preliminary Gram Negative Rods Constitutional Constitutional: no acute distress *Routine HEENT Exam Head: Present normocephalic Eye: Present EOMI and PERRL ENT: Present mucous membranes moist *Routine Neck Exam Neck: Present supple; Absent lymphadenopathy *Routine Respiratory Exam Respiratory: Present CTA bilaterally *Routine Cardiovascular Exam Cardiovascular: Present RRR *Routine Abdominal Exam Abdominal: Present soft and normoactive bowel sounds; Absent tenderness *Routine Extremities Exam Extremities: Absent cyanosis, clubbing or edema *Routine Skin Exam Skin: Present warm; Absent rash *Routine Neurological Exam Neurological: Present alert and oriented X3 Results Data Completed and Pending Labs on day of discharge: Labs from last 24 hours 11/11/24 11/09/24 05:35 16:11 WBC 9.1 RBC 3.59 L Hgb 11.4 L Hct 34.4 L MCV 95.8 H MCH 31.8 H MCHC 33.1 RDW 15.2 Plt Count 231 MPV 9.3 Neut % (Auto) 61.4 Lymph % (Auto) 18.2 [place] % (Auto) 9.4 H Eos % (Auto) 8.7 Baso % (Auto) 0.4 Neut # (Auto) 5.6 Lymph # (Auto) 1.7 [place] # (Auto) 0.9 Eos # (Auto) 0.8 H Baso # (Auto) 0.0 Sodium 136 Potassium 3.9 Chloride 107 Carbon Dioxide 24 Anion Gap 8.9 BUN 19 Creatinine 1.60 H Estimated Creat Clear 40 Estimated GFR 42 L Est GFR ( Amer) 50 L Glucose 111 H Calcium 7.5 L Triglycerides 60 Cholesterol 95 L LDL Cholesterol Direct 38.44 L VLDL Cholesterol 12 HDL Cholesterol 31 L Cholesterol/HDL Ratio 3.1 TSH 2.16 Urine Color Yellow Urine Appearance Clear Urine pH 7.0 Ur Specific Willis <= 1.005 Urine Protein Negative Urine Glucose (UA) Negative Urine Ketones Negative Urine Blood Negative Urine Nitrate Negative Urine Bilirubin Negative Urine Urobilinogen 2.0 Ur Leukocyte Esterase Negative Urine RBC 5-10 Urine WBC Occasional Ur Squamous Epith Cells Occasional Urine Bacteria 1+ Preliminary micro results at discharge 11/10/24 09:23 Sputum Culture - Preliminary Sputum - Expectorated Sputum Gram Negative Rods DS: Diagnosis Discharge Diagnosis (1) Pneumonia: Status: Acute Code(s): J18.9 - Pneumonia, unspecified organism (2) NSTEMI (non-ST elevated myocardial infarction): Status: Acute Code(s): I21.4 - Non-ST elevation (NSTEMI) myocardial infarction (3) Aspiration pneumonia: Status: Acute Code(s): J69.0 - Pneumonitis due to inhalation of food and vomit (4) COPD (chronic obstructive pulmonary disease): Status: Chronic Code(s): J44.9 - Chronic obstructive pulmonary disease, unspecified Qualifiers: COPD type: emphysema Emphysema type: centrilobular Qualified Code(s): J43.2 - Centrilobular emphysema (5) Complex partial seizure disorder: Status: Chronic Code(s): G40.209 - Localization-related (focal) (partial) symptomatic epilepsy and epileptic syndromes with complex partial seizures, not intractable, without status epilepticus Problem details: 10/30/2019: Currently stable on Lamictal generic 150 mg twice daily, most recent laboratory work, Lamictal level 5.7 within therapeutic range 09/26/2018: Sleep deprived/prolonged EEG, ZETO: Abnormal EEG. Asymmetrical, slow background rhythm. Focal slowing, independent transient sharps and occasional phase reversal seen over the bifrontal regions, left greater than right. Focal slowing in the [place] range seen over the left frontotemporal region. Cannot exclude focal cerebral dysfunction in this region. (6) Asthma: Status: Acute Code(s): J45.909 - Unspecified asthma, uncomplicated Meds Home Medications and Allergies Home Medications ?Medication ?Instructions ?Recorded ?Confirmed ?Type aspirin 81 mg tablet,delayed 81 mg PO DAILY Heart disease 03/19/17 11/09/24 History release (Adult Low Dose Aspirin) sacubitril 24 mg-valsartan 26 mg 1 tab PO BID Heart failure 09/21/21 11/10/24 History tablet Held on 11/11/24. Instructions: Resume on 11/18/24. Your blood pressures were low normal during admission, please follow-up with cardiology to discuss restarting this medication. sildenafil (pulm.hypertension) 20 20 mg PO DIRECTED PRN sexual 02/06/22 11/09/24 Rx mg tablet activity #40 tabs cholecalciferol (vitamin D3) 25 25 mcg PO DAILY 07/26/22 11/09/24 History mcg (1,000 unit) capsule gabapentin 300 mg capsule 300 mg PO HS #30 caps 08/27/23 11/09/24 Rx (Neurontin) lamotrigine 100 mg tablet 150 mg (1.5 x 100 mg) PO BID 06/10/24 11/09/24 Rx Complex partial seizure #270 tabs brimonidine 0.2 % eye drops 1 drp Eye-Both BID 07/06/24 11/09/24 History buspirone 5 mg tablet 5 mg PO BID 07/06/24 11/09/24 History desvenlafaxine succinate 50 mg 50 mg PO DAILY 07/06/24 11/09/24 History tablet,extended release 24 hr diazepam 2 mg tablet 2 mg PO DAILY PRN Anxiety 07/06/24 11/09/24 History fluticasone 250 mcg-salmeterol 50 1 inh inhalation BID 90 days #180 07/06/24 11/09/24 Rx mcg/dose blistr powdr for ea inhalation latanoprost 0.005 % eye drops 1 drp Eye-Both HS 07/06/24 11/09/24 History atorvastatin 40 mg tablet 40 mg PO HS 11/09/24 11/10/24 History ondansetron 4 mg disintegrating 4 mg PO Q8 PRN Nausea And Vomiting 11/09/24 11/10/24 History tablet trazodone 50 mg tablet 100 mg PO HS PRN Sleep 11/09/24 11/10/24 History albuterol sulfate 90 mcg/actuation 2 inh inhalation Q4HP PRN 11/10/24 11/10/24 History aerosol inhaler shortness of breath or wheezing memantine 10 mg tablet 10 mg PO BID 11/10/24 11/09/24 History levofloxacin 750 mg tablet 750 mg PO Q48H 4 days #2 tabs 11/11/24 Rx New Prescriptions to Start Prescriptions: Ravinder Dennis Allergies Allergy/AdvReac Type Severity Reaction Status Date / Time levetiracetam (From [facility]) AdvReac Severe anger, Verified 10/06/24 14:44 depression, gait disturbance Discharge Plan Disposition Patient Disposition: Home, Self-Care Condition: Fair Discharge Order Discharge Orders: Discharge Order (Routine); Ordered 11/11/24 Ordered By: Ravinder Cortes Follow up Plan Follow up with: Mirna Smith APRN [Nurse Practitioner, Cardiology] - 11/18/24 3:00 pm Hattie Dorman PA [Primary Care Provider, Medical] - 11/26/24 9:00 am Girish Campo MD [Physician, Pulmonology] - 12/08/24 1:00 pm Prescriptions/Medication Reconciliation: New levofloxacin 750 mg tablet 750 mg PO Q48H 4 Days Qty: 2 0RF Continued cholecalciferol (vitamin D3) 25 mcg (1,000 unit) capsule 25 mcg PO DAILY Patient Comments: TAKE ONE CAPSULE BY MOUTH EVERY DAY sildenafil (pulm.hypertension) 20 mg tablet 20 mg PO DIRECTED PRN (Reason: sexual activity) Qty: 40 2RF gabapentin [Neurontin] 300 mg capsule 300 mg PO HS Qty: 30 2RF lamotrigine 100 mg tablet 150 mg PO BID Qty: 270 3RF aspirin [Adult Low Dose Aspirin] 81 mg tablet,delayed release (DR/EC) 81 mg PO DAILY latanoprost 0.005 % drops 1 drp Eye-Both HS Patient Comments: instill 1 DROP IN EACH EYE EVERY NIGHT buspirone 5 mg tablet 5 mg PO BID Patient Comments: TAKE ONE TABLET BY MOUTH TWICE DAILY DIRECTED FOR ANXIETY diazepam 2 mg tablet 2 mg PO DAILY PRN (Reason: Anxiety) Patient Comments: TAKE ONE TABLET BY MOUTH EVERY DAY NEEDED FOR anxiety/agitation/sleeplessness MAY CAUSE DROWSINESS brimonidine 0.2 % drops 1 drp Eye-Both BID Patient Comments: INSTILL ONE DROP IN EACH EYE TWICE DAILY desvenlafaxine succinate 50 mg tablet extended release 24 hr 50 mg PO DAILY Patient Comments: TAKE ONE TABLET BY MOUTH EVERY DAY DIRECTED FOR depression fluticasone propion-salmeterol 250-50 mcg/dose blister with device 1 inh inhalation BID 90 Days Qty: 180 3RF trazodone 50 mg tablet 100 mg PO HS PRN (Reason: Sleep) Patient Comments: TAKE 1-2 TABLET(S) BY MOUTH EVERY DAY AT BEDTIME FOR SLEEP atorvastatin 40 mg tablet 40 mg PO HS ondansetron 4 mg tablet,disintegrating 4 mg PO Q8 PRN (Reason: Nausea And Vomiting) Patient Comments: Dissolve one tablet in mouth every 8 hours as needed for nausea and vomiting albuterol sulfate 90 mcg/actuation HFA aerosol inhaler 2 inh inhalation Q4HP PRN (Reason: shortness of breath or wheezing) memantine 10 mg tablet 10 mg PO BID Held sacubitril-valsartan 24-26 mg tablet 1 tab PO BID Hold Instructions: Resume on 11/18/24. Your blood pressures were low normal during admission, please follow-up with cardiology to discuss restarting this medication. Other Ambulatory Orders: [place] barium swallow modified (Routine) Timeframe: 1 Week Facility: [facility] - Location: Radiology Ordered By: Ravinder Cortes Problem Reconciliation Problems Reviewed?: Yes Patient Discharge Instructions Additional Instructions: You did not have large occlusions in your coronary arteries and therefore did not need stents. Also, someone will call you from the hospital to schedule your swallow study. Please follow-up with cardiology and pulmonology within 1 week. Patient Instructions: DI for Pneumonia -- Adult, DI for Aspiration Pneumonia, DI for Cardiac Catheterization, DI for Surgical Site Infection, Stop Light Pneumonia, Stop Light Infection Print Language: [place] Providers Primary Care Provider: Hattie Dorman Admit Provider: Anton Almazan Attending Provider: Anton Almazan
[2024-11-11 18:21] LABS: Microscopic, Urine URINE MICROSCOPIC (MICROSCOPIC)
[2024-11-11 21:05] LABS: Bilirubin,Urine Negative (Negative); Color,Urine YELLOW (Yellow); Glucose,Urine (UA) Negative (Negative); Ketones,Urine Negative (Negative); Leukocyte Esterase,Urine Negative (Negative); PH,Urine 7.0 (5.0-8.5); Protein,Urine Negative (Negative); Specific Gravity, Urine <= 1.005 (1.005-1.030); Urobilinogen,Urine 1.0 EU/dl (0.2)
[2024-11-11 21:47] LABS: Bacteria,Urine Trace /lpf; WBC,Urine Occasional #/hpf (0-3)
[2024-11-11 23:46] LABS: Hemoglobin A1C 6.1 % (4.0-6.0)
--- NOTE | 2024-11-12 09:54 | SW/DCPLANNER ---
Patient was DC on 11/11/24 and was readmitted later that night. When patient is DC i will do the follow up phone call. Bowen Umana
== END 2024-11-11 18:03 | disposition home or self-care (01) | DRG 871 ==
LOC: ER 18:09 → 2ND 18:10
PROVIDERS: Internal Medicine Cardiovascular Disease; Physician Assistant; Student in an Organized Health Care Education/Training Program; Admitting Provider Internal Medicine Adolescent Medicine; Emergency Provider Student in an Organized Health Care Education/Training Program; PCP Physician Assistant; Visit Provider Internal Medicine Adolescent Medicine
PROC: 4A023N7 Measurement of Cardiac Sampling and Pressure, Left Heart, Percutaneous Approach (ICD-10-PCS; CPT 93452; principal; 2024-11-11 14:00)
DX: A41.9 Sepsis, unspecified organism (principal); I21.A1 Myocardial infarction type 2; J69.0 Pneumonitis due to inhalation of food and vomit; J12.89 Other viral pneumonia; R65.21 Severe sepsis with septic shock; J15.0 Pneumonia due to Klebsiella pneumoniae; J80 Acute respiratory distress syndrome; N17.0 Acute kidney failure with tubular necrosis; G40.209 Localization-related (focal) (partial) symptomatic epilepsy and epileptic syndromes with complex partial seizures, not intractable, without status epilepticus; J44.0 Chronic obstructive pulmonary disease with (acute) lower respiratory infection; R04.2 Hemoptysis; J84.9 Interstitial pulmonary disease, unspecified; J44.1 Chronic obstructive pulmonary disease with (acute) exacerbation; E87.20 Acidosis, unspecified; R27.0 Ataxia, unspecified; R79.89 Other specified abnormal findings of blood chemistry; R34 Anuria and oliguria; B97.89 Other viral agents as the cause of diseases classified elsewhere; B97.10 Unspecified enterovirus as the cause of diseases classified elsewhere; E87.5 Hyperkalemia; E53.8 Deficiency of other specified B group vitamins; J43.2 Centrilobular emphysema; I25.10 Atherosclerotic heart disease of native coronary artery without angina pectoris; I27.20 Pulmonary hypertension, unspecified; F32.A Depression, unspecified; I12.9 Hypertensive chronic kidney disease with stage 1 through stage 4 chronic kidney disease, or unspecified chronic kidney disease; G47.33 Obstructive sleep apnea (adult) (pediatric); F41.9 Anxiety disorder, unspecified; G62.9 Polyneuropathy, unspecified; N18.32 Chronic kidney disease, stage 3b; F03.A0 Unspecified dementia, mild, without behavioral disturbance, psychotic disturbance, mood disturbance, and anxiety; M47.812 Spondylosis without myelopathy or radiculopathy, cervical region; Z87.891 Personal history of nicotine dependence; Z95.5 Presence of coronary angioplasty implant and graft; Z86.73 Personal history of transient ischemic attack (TIA), and cerebral infarction without residual deficits; Z79.82 Long term (current) use of aspirin; Z79.899 Other long term (current) drug therapy; Z88.8 Allergy status to other drugs, medicaments and biological substances; I25.2 Old myocardial infarction
CPT/HCPCS: 36415; 71045; 80048; 80053; 80061; 81001; 83036; 83735; 83880; 84145; 84443; 84484; 85025; 86140; 86803; 87040; 87070; 87077; 87186; 87205; 87389; 87636; 92610; 93005; 93306; 94640; 94660; 94761; 99152; 99285; C1725; C1769; G0378; J0456; J1200; J1644; J1650; J2003; J2250; J2543; J3010; J7040; J7050; J7120; Q9967

== ENCOUNTER 2024-11-11 23:00 | Inpatient (IN) | payer MEDICARE, OTHER, SELFPAY ==
--- OUTSIDE RECORDS SUMMARY | 2024-09-17 11:20 | XMS_ITS | Encounter Summary ---
Author Organization [facility] Address [address] [place] [address] Care Team Providers Care Manager Poker Name Role Phone Hattie Doramn Primary Care Provider [phone] Reason for Referral * Consultation (Routine) - Authorized Specialty Diagnoses / Procedures Referred By Contac t Referred To Contact Diagnoses Diastolic dysfunction Dyspnea on exertion Annalisa Collier APRN [address] [place] [address] Phone: tel: fax: Referral ID Status Reason Start Date Expiration Date V isits Requested Visits Authorized [id number] Authorized 09/17/2024 03/19/2026 1 1 Encounter Details Date Type Department Care Team (Late st Contact Info) Description 09/17/2024 11:20 AM EDT Office Visit [facility] [address] [place] [address] Annalisa Collier APRN [address] [place] [address] Diastolic dysfunction (Primary Dx); Dyspnea on exertion; Coronary artery disease involving white mountain coronary artery of white [place] heart without angina pectoris Social History Tobacco [...] Previous Workup/ Testing (from referring facility & [facility]) - 02/2020: VQ Scan noted to be [...] on exertion 3. Coronary artery disease involving white mountain coronary artery of white mountain heart without angina pectoris Assessment and Plan: [...] all pertinent questions were answered. Annalisa F [place], ELECTRIC CLOCK MECHANIC [1] Past Medical History: Diagnosis Date Asthma CAD (coronary artery disease) 8 heart stents Chronic kidney disease stage 3 COPD (chronic obstructive pulmonary disease) ([facility]) 2017 Diastolic dysfunction, left ventricle Dry eyes Glaucoma History of degenerative disc disease HL (hearing loss) Hyperlipidemia Hypertension Other secondary cataract, right eye After-cataract of right eye with vision obscured Personal history of other diseases of the circulatory system History of cardiac disorder. 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 TEAR DUCT [...] Description 11/30/2024 11:20 AM EDT Office Visit [facility] [address] [place] [address] Rajesh Fisher MD [address] [address] 06/17/2025 11:40 AM EDT Office Visit [facility] [address] [facility] [place] [address] Cal Florentino MD [address] [place] [phone] Scheduled Referrals Name Type Priority Associated Diagnoses [...] - 99 mg/dL 09/17/2024 12:35 PM EDT [facility] BUN, Plasma 23 8 - 23 mg/dL 09/17/2024 12:35 PM EDT [facility] Creatinine, Plasma 2.08(H) 0.70 - 1.20 mg/dL 09/17/2024 12:35 PM EDT [facility] BUN/Creatinine Ratio 11 09/17/2024 12:35 PM EDT [facility] Sodium, Plasma 134(L) 136 - 145 mmol/L 09/17/2024 12:35 PM EDT [facility] Potassium, Plasma 4.6 3.6 - 4.9 mmol/L 09/17/2024 12:35 PM EDT [facility] Chloride, Plasma 102 97 - 107 mmol/L 09/17/2024 12:35 PM EDT [facility] CO2, Plasma 24 22 - 29 mmol/L 09/17/2024 12:35 PM EDT [facility] Anion Gap 8 6 - 16 mmol/L 09/17/2024 12:35 PM EDT [facility] Total Calcium, Plasma 8.9 8.9 - 10.2 mg/dL 09/17/2024 12:35 PM EDT [facility] eGFRcr 31.2 mL/min/1.7 3m*2 09/17/2024 12:35 PM EDT [facility] Comment:Reported eGFRcr in m L/min/1.73m2 is based the CKD-EPI 2020 equation that does not use a race coefficient. Blood Venous blood specimen / Unknown Venipuncture / Unknown 09/17/2024 11:50 AM EDT 09/17/2024 12:03 PM EDT Annalisa Collier ELECTRIC CLOCK MECHANIC LAB BLOOD ORDERABLES Final R esult Performing Organization Address City/[facility] Co de Phone Number [facility] [address] [place] [address] * N-Terminal Probnp, Plasma (09/17/2024 11:50 AM EDT) N-Terminal, PROBNP, Plasma 278 0 - 1,799 pg/mL 09/17/2024 12:35 PM EDT [facility] Blood Venous blood specimen / Unknown Venipuncture / Unknown 09/17/2024 11:50 AM EDT 09/17/2024 12:03 PM EDT [facility] BLOOD ORDERABLES Final R esult Performing Organization Address [facility] Co de Phone Number [facility] [address] [place] [address] documented in this encounter Visit Diagnoses Diagnosis Diastolic dysfunction- Primary Unspecified heart disease Dyspnea on exertion Other dyspnea and respiratory abnormality Coronary artery disease involving white mountain coronary artery of white mountain heart without angina pectoris documented in this encounter Additional Health Concerns Assessment Noted Time A fall risk assessment has been complete d for the patient 09/17/2024 11:32 AM EDT A Body Mass Index follow-up plan has been documented for the patient 09/17/2024 11:57 AM EDT documented as of this encounter Care Teams Manager Poker Relationship Specialty Start Date End Date Hattie Dorman PA [address] [place] [address] PCP - General 11/07/23 documented as of this encounter
--- OUTSIDE RECORDS SUMMARY | 2024-10-09 09:40 | XMS_ITS | Encounter Summary ---
Author Organization [facility] Address [address] [place] [address] Care Team Providers Care Operations Plant Attendant Name Role Phone Hattie Dorman Primary Care Provider [phone] Reason for Referral * Consultation (Routine) - Authorized Specialty Diagnoses / Procedures Referred By Contac t Referred To Contact Diagnoses Stage 3b chronic kidney disease (CMS/HCC) Rae Lozoya APRN [address] [address] Phone: tel: fax: Referral ID Status Reason Start Date Expiration Date V isits Requested Visits Authorized [id number] Authorized 10/09/2024 04/10/2026 1 1 Reason for Visit * Reason Comments Follow-up Pt is a 84 year old male that presents to the clinic on this date for a 1 year f/u. Pt states he is feeling well, and has no pain. Pt denies complaints or concerns at the current moment. 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; Essential hypertension; Chronic kidney disease-mineral and bone disorder Social History Tobacco Use Types Packs/Day Years [...] Sign Reading Time Taken Comments Blood Pressure 106/62 10/09/2024 9:41 AM EDT Pulse 60 10/09/2024 9:41 AM EDT Temperature - - Respiratory Rate 18 10/09/2024 9:41 AM EDT Oxygen Saturation 95% 10/09/2024 9:41 AM EDT Inhaled Oxygen Concentration - - Weight 74.4 kg (164 lb) 10/09/2024 9:41 AM EDT Height 182.9 cm (6') 10/09/2024 9:41 AM EDT Body Mass Index 22.24 10/09/2024 9:41 AM EDT documented in this encounter Miscellaneous Notes * Progress Notes - Rae Lozoya APRN - 10/09/2024 9:40 AM EDT SUBJECTIVE Kalia Magdaleno is a 84 y.o. male who presents for follow-up of CKD 3. Feeling well. Denies any changes. Edema present but stable. Continues to follow with advanced HF clinic closely. Denies hematuria, dysuria, abd pain, SOA, CP. OBJECTIVE Vitals: 10/09/24 0941 BP: 106/62 Pulse: 60 Resp: 18 SpO2: 95% PHYSICAL EXAMINATION Gen: NAD, elderly HEENT: AT/NC, anicteric sclera CV: RRR, mild BLE edema Pulm: no increased work of breathing, symmetric chest expansion MSK: ambulates with rolling walker Neuro: alert, interactive, cortical function grossly intact LAB RESULTS Outside labs reviewed. ASSESSMENT/PLAN Assessment: - CKD 3: baseline Cr 1.7-1.9. Cr 1.8. Has remained stable since 06/2017. BUN 20, stable from last year. Electrolytes are normal. Etiology of injury unknown but suspect related to cardiovascular disease. 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 - CKD-MBD/ Vit D Def: PTH 67, vit D 46. Phos and Ca wnl. Plan/ Recs: - no acute changes in mgmt. Will monitor yearly for now. - continue current BP, pulm HTN regimen. - continue cholecalciferol 25 mcg daily. - if any issues arise, pt may come back to clinic sooner RTC in 1 year Note to Patient: The Century Cure Act makes medical noted like these available to patients in the interest of transparency. However, be advised this is a medical document. It is intended as peerto peer communication. It is written in medical language and may contain abbreviations or verbiage that are unfamiliar. It may appear blunt or direct. Medical documents are intended to carry relevantinformation, facts as evident, and the clinical opinion of the physician documented in this encounter Plan of Treatment Upcoming Encounters Date Type Department Care Team (Late st Contact Info) Description 11/30/2024 11:20 AM EDT Office Visit [facility] [address] [place] [address] Rajesh Fisher MD [address] [address] 06/17/2025 11:40 AM EDT Office Visit [facility] [place] [address] [place] [address] Cal Florentino MD [address] [place] [phone] Scheduled Orders Name Type Priority Associated Diagnoses Orde r Schedule Renal Function Panel, Plasma Lab Routine Stage 3b chronic kidney disease ([facility]/HCC) Expected: 10/09/2024 (Approximate), Expires: 04/11/2026 CBC W/O Differential Lab Routine Stage 3b chronic kidney disease (CMS/HCC) Expected: 10/09/2024 (Approximate), Expires: 04/11/2026 Urinalysis with reflex microscopic (Culture NOT Included) Lab Routine Stage 3b chronic kidney disease (CMS/HCC) Expected: 10/09/2024 (Approximate), Expires: 04/11/2026 Creatinine, Random, Urine Lab Routine Stage 3b chronic kidney disease (CMS/HCC) Expected: 10/09/2024 (Approximate), Expires: 04/11/2026 Albumin-creatinine ratio, urine, random Lab Routine Stage 3b chronic kidney disease (CMS/HCC) Expected: 10/09/2024 (Approximate), Expires: 04/11/2026 Protein, Random, Urine with Creatinine Lab Routine Stage 3b chronic kidney disease (CMS/HCC) Expected: 10/09/2024 (Approximate), Expires: 04/11/2026 Scheduled Referrals Name Type Priority Associated Diagnoses Order Schedule Follow Up Nephrology Outpatient Referral Routine Stage 3b chronic kidney disease (CMS/HCC) Expected: 10/09/2025 (Approximate), Expires: 11/09/2025 documented as of this encounter Visit Diagnoses Diagnosis Stage 3b chronic kidney disease (CMS/HCC)- Primary 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
--- NOTE | 2024-11-11 23:13 | ECG_ITS ---
APPROVED REPORT Exam: Resting ECG HR:92 bpm ECG Measurements Heart Rate 92 AXES QRSd 90 QRS -64 QT 353 T 42 QTc 403 Conclusion INDETERMINATE AXIS POSSIBLE RIGHT VENTRICULAR CONDUCTION DELAY [RSR (QR) IN V1/V2] ABNORMAL ECG Sinus arrhythmia no ST elevation in anatomical contiguous leads Electronically signed by : ODESSA GRANADO, 11/12/2024 09:06:07
--- NOTE | 2024-11-11 23:14 | ECG_ITS ---
APPROVED REPORT Exam: Resting ECG HR:90 bpm ECG Measurements Heart Rate 90 AXES MD 169 P 81 QRSd 98 QRS -77 QT 362 T 52 QTc 409 Conclusion SINUS RHYTHM WITH FREQUENT SUPRAVENTRICULAR PREMATURE COMPLEXES INDETERMINATE AXIS LEFT ANTERIOR FASCICULAR BLOCK [QRS AXIS <= -45, QR IN I, RS IN II] ABNORMAL ECG Electronically signed by : ODESSA GRANADO, 11/12/2024 09:03:22
--- NOTE | 2024-11-11 23:17 | HMH.EDGENADL ---
Discharge Plan Disposition Patient Disposition: Admitted Clinical Impressions Clinical Impression: Respiratory failure with hypoxia, Pneumonia Discharge ED Provider: Óscar Allen General Adult HPI General Chief complaint: Shortness of Breath/Dyspnea Stated complaint: SOA,fever,discharged today cough Time Seen by Provider: 11/11/24 23:00 History of Present Illness HPI narrative: 84-year-old male with history of COPD coronary disease seizure chronic kidney disease presents with worsening shortness of breath. He reports that he was diagnosed with pneumonia and was admitted for the last few days and was discharged this evening. He went home and was feeling okay, but has become significantly short of breath since that time. It is not improving. He often gets short of breath with movement, but he is short of breath even with sitting still currently. Denies new fever. Denies chest pain or abdominal pain. He had a cath today that was unremarkable. Related Data Home Medications ?Medication ?Instructions ?Recorded ?Confirmed aspirin 81 mg tablet,delayed 81 mg PO DAILY Heart disease 03/19/17 11/09/24 release (Adult Low Dose Aspirin) sacubitril 24 mg-valsartan 26 mg 1 tab PO BID Heart failure 09/21/21 11/10/24 tablet Held on 11/11/24. Instructions: Resume on 11/18/24. Your blood pressures were low normal during admission, please follow-up with cardiology to discuss restarting this medication. cholecalciferol (vitamin D3) 25 25 mcg PO DAILY 07/26/22 11/09/24 mcg (1,000 unit) capsule brimonidine 0.2 % eye drops 1 drp Eye-Both BID 07/06/24 11/09/24 buspirone 5 mg tablet 5 mg PO BID 07/06/24 11/09/24 desvenlafaxine succinate 50 mg 50 mg PO DAILY 07/06/24 11/09/24 tablet,extended release 24 hr diazepam 2 mg tablet 2 mg PO DAILY PRN Anxiety 07/06/24 11/09/24 latanoprost 0.005 % eye drops 1 drp Eye-Both HS 07/06/24 11/09/24 atorvastatin 40 mg tablet 40 mg PO HS 11/09/24 11/10/24 ondansetron 4 mg disintegrating 4 mg PO Q8 PRN Nausea And Vomiting 09/22/25 09/23/25 tablet trazodone 50 mg tablet 100 mg PO HS PRN Sleep 11/09/24 11/10/24 albuterol sulfate 90 mcg/actuation 2 inh inhalation Q4HP PRN 11/10/24 11/10/24 aerosol inhaler shortness of breath or wheezing memantine 10 mg tablet 10 mg PO BID 11/10/24 11/09/24 Previous Rx's ?Medication ?Instructions ?Recorded sildenafil (pulm.hypertension) 20 20 mg PO DIRECTED PRN sexual 02/06/22 mg tablet activity #40 tabs gabapentin 300 mg capsule 300 mg PO HS #30 caps 08/27/23 (Neurontin) lamotrigine 100 mg tablet 150 mg (1.5 x 100 mg) PO BID 06/10/24 Complex partial seizure #270 tabs fluticasone 250 mcg-salmeterol 50 1 inh inhalation BID 90 days #180 07/06/24 mcg/dose blistr powdr for ea inhalation levofloxacin 750 mg tablet 750 mg PO Q48H 4 days #2 tabs 11/11/24 Allergies Allergy/AdvReac Type Severity Reaction Status Date / Time levetiracetam (From [facility]) AdvReac Severe anger, Verified 10/06/24 14:44 depression, gait disturbance PFSH PFS Disclaimer: The information contained in this section may have been updated after the patient was seen, as this information can be updated by other users. Medical History Tinnitus of right ear Sensorineural hearing loss (SNHL) of both ears Hearing loss Tinnitus Restrictive lung disease History of 2019 novel coronavirus disease (COVID-19) Asthma-COPD overlap syndrome Abnormal PFT Moderate persistent asthma ILD (interstitial lung disease) Centrilobular emphysema Dyspnea on exertion LAURA on CPAP Bradycardia Surgical History History of cardiac cath H/O cervical spine surgery Family History Coronary artery disease Hypertension Social History (Updated 11/09/24 @ 20:28 by Tiffany Walsh RN) Smoking Status: Former smoker tobacco type: cigarettes alcohol intake: never counseling provided: none substance use type: denies use current occupational status: retired Travel in the last 8 weeks?: None household members: spouse housing: house caffeine: Yes Other Medical History Have you received the Flu Vaccine for this season: No Have you received the Pneumonia Vaccine: No ROS Obtained: Yes All systems reviewed & no additional complaints except as documented Physical Exam General General appearance: alert and in distress Head Head exam: atraumatic and normocephalic Eye Eye exam: Present normal appearance, PERRL and EOMI ENT ENT exam: Present normal oropharynx and normal external ear exam Neck Neck exam: Present normal inspection and full ROM Chest Chest inspection: Present normal inspection and symmetric chest wall rise; Absent tenderness Respiratory Respiratory exam: Present other (Basilar crackles); Absent respiratory distress Cardiovascular Cardiovascular exam: Present normal rhythm and tachycardia Abdominal Exam Abdominal exam: Present soft; Absent distention, tenderness or guarding Extremities Exam Extremities exam: Present normal inspection; Absent edema or joint swelling Back Exam Back exam: Present normal inspection; Absent tenderness Neurological Exam Neurological exam: Present alert and oriented X3; Absent motor sensory deficit Psychiatric Psychiatric exam: Present normal affect and normal mood Skin Skin exam: Present warm, dry and normal color Lymphatic Lymphatic Findings: no adenopathy Medical Decision Making Medical Records Medical records reviewed: Yes I reviewed the patient's medical records. Screening: Per USPSTF and CDC recommendations, given the prevalence of disease in our region, it is our hospital?s policy to screen for HIV and viral Hepatitis for all patients aged 18 and over and those with ongoing risk factors. Demond Inquiry Pt receiving controlled substance: No Demond was queried for this patient: No Vital Signs: 11/11/24 23:31 Temperature 98.4 F Temperature Source Oral Pulse Rate [Left Radial] 94 H Respiratory Rate 20 Blood Pressure [Right Arm] 149/71 H Blood Pressure Mean [Right Arm] 97 Blood Pressure Source [Right Arm] Automatic Cuff Blood Pressure Position [Right Arm] Sitting 02 Sat by Pulse Oximetry 87 L Oxygen Delivery Method Room Air Lab Data Lab results reviewed: Yes I reviewed the patient's lab results. Lab Results 11/11/24 23:30: WBC 12.7 H D, RBC 4.11 L, Hct 38.3 L, MCV 93.2, MCH 30.9, MCHC 33.2, RDW 15.0, Plt Count 234, MPV 8.7, Neut % (Auto) 78.5, Lymph % (Auto) 9.4 L, [place] % (Auto) 6.9, Eos % (Auto) 3.8, Baso % (Auto) 0.3, Neut # (Auto) 10.0 H, Lymph # (Auto) 1.2, [place] # (Auto) 0.9, Eos # (Auto) 0.5 H, Baso # (Auto) 0.0, D-Dimer 0.76 H, VBG pH 7.56 H, VBG pCO2 23.5 L, VBG pO2 40.9 H, VBG HCO3 20.5 L, VBG Total CO2 21.2 L, VBG O2 Saturation 84.4 H, VBG Base Excess -1.7, VBG Lactic Acid 3.1 H, Sodium 138, Potassium 3.8, Chloride 106, Carbon Dioxide 22, Anion Gap 13.8, BUN 18, Creatinine 1.70 H, Estimated Creat Clear 34, Estimated GFR 39 L, Est GFR ( Amer) 47 L, Glucose 106 H, Calcium 8.7, Magnesium 2.2, Total Bilirubin 0.7, AST 44 D, ALT 32 D, Alkaline Phosphatase 119, Troponin I 0.34 H, Total Protein 6.8, Albumin 3.7, Globulin 3.1, Albumin/Globulin Ratio 1.2 11/11/24 23:30 11/11/24 23:30 Orders (Tests/Meds): ORDERS Category Date Time Status CXR --portable [XR chest portable] Stat Exams 11/11/24 23:29 Taken BNP [NT Pro Brain Natriuretic Pep.] Stat Lab 11/11/24 23:30 Received CBC w/Auto Diff [Complete Blood Count Auto Diff] Stat Lab 11/11/24 23:30 Results CMP [Comprehensive Metabolic Panel] Stat Lab 11/11/24 23:30 Completed D-Dimer Stat Lab 11/11/24 23:30 Completed Full Resp Panel w/COVID (H) Routine Lab 11/11/24 23:37 Received MAG [Magnesium] Stat Lab 11/11/24 23:30 Completed Trop I [Troponin I] Stat Lab 11/11/24 23:30 Completed Troponin I Q3H Lab 11/12/24 02:30 Ordered Troponin I Q3H Lab 11/12/24 05:30 Ordered Blood Culture Stat Micro 11/11/24 23:27 Received VBG [Venous Blood Gas] Stat RT 11/11/24 23:30 Completed ECG Data Tracing #1: I reviewed this ECG and interpreted as documented below: Sinus rhythm with PVCs. Left anterior fascicle block. No obvious ischemic changes ECG initial impression date: 11/11/24 ECG initial impression time: 23:14 HEART Score History (anamnesis): Slightly suspicious ECG: Non-specific disturbance Age: >65 years Risk factors: Atherosclerosis history Troponin: > 3x normal limit HEART Score: 7 Medical Decision Narrative: 84-year-old male with history of COPD, CAD, recent admission for pneumonia presents for worsening shortness of breath,. History was obtained via interactive discussion with patient. On arrival, patient is afebrile, hemodynamically stable, satting 86% on room air, dyspneic and tachypneic, moving all extremities spontaneously. Full physical exam performed and significant for basilar crackles. Patient significantly proved on 3 L nasal cannula. Differential includes but is not limited to worsening pneumonia, volume overload, ACS, PE, VBG. Workup initiated including CBC CMP troponin EKG D-dimer chest x-ray blood cultures viral panel. On re-evaluation, patient remained stable, satting mid 90s on 2 L nasal cannula. Laboratory workup independently interpreted by me and significant for mild leukocytosis, troponin elevated but stable from admission, D-dimer negative by years criteria. Imaging independently interpreted by me and significant for worsening left lung opacities. See radiology read for full review of final results. Given patient history, exam and workup, patient's presentation most likely represents acute hypoxic respiratory failure secondary to pneumonia. Interactive discussion was had with hospitalist on-call for admission.. Procedures Risk/Benefits of Procedure(s) Were Explained: Yes Critical Care Critical Care Time Critical Care Time: No
--- NOTE | 2024-11-11 23:29 | XR_ITS ---
PROCEDURE INFORMATION: Exam: XR Chest Exam date and time: 11/11/2024 11:41 PM Age: 84 years old Clinical indication: Other: Pna, worsening SOA TECHNIQUE: Imaging protocol: Radiologic exam of the chest. Views: 1 view. Total images: 2 COMPARISON: CR XR CHEST PORTABLE 11/11/2024 9:53 AM FINDINGS: Tubes, catheters and devices: EKG leads are present. Lungs: Worsening moderate pattern interstitial and airspace infiltrate/pneumonia throughout the lower half of the left hemithorax. Underlying chronic interstitial lung disease/fibrosis. Pleural spaces: Biapical pleural thickening. No pneumothorax or significant pleural effusion. Heart/Mediastinum: Unremarkable. No cardiomegaly. No mediastinal widening or hilar enlargement. Vasculature: Atherosclerotic aortic arch. Bones/joints: Mild degenerative changes thoracic spine and bilateral AC joints. Stable chest wall structures. IMPRESSION: 1. Moderate mixed interstitial and airspace opacification throughout the left lower lung, compatible with pneumonia. Appearance has worsened from prior exam. 2. Underlying chronic disease.
[2024-11-11 23:31] VITALS: BP 149/71; PULSE 94; RESP 20; TEMP 36.9; O2SAT 87; BMI 21.7
[2024-11-11 23:40] LABS: Hematocrit 38.3 % (42.0-52.0); Immature Granulocytes % 1.1 %; Mean Corpuscular HGB Conc 33.2 g/dL (31.8-35.4); Mean Corpuscular Hemoglobin 30.9 pg (27.0-31.2); Mean Corpuscular Volume 93.2 fl (80-94); Nucleated Red Blood Cells % 0 %; Platelet Count 234 K/mm3 (142-424); Red Blood Count 4.11 M/mm3 (4.60-6.20); Red Cell Distribution Width-SD 51.8 fL; White Blood Count 12.7 K/mm3 (4.8-10.8)
[2024-11-11 23:41] LABS: Adenovirus,PCR Not Detected (NotDetected); Chlamydophila Pneumoniae, PCR Not Detected (NotDetected); Coronavirus 19, PCR Not Detected (NotDetected); Coronovirus HKU1,PCR Not Detected (NotDetected); Influenza A, PCR Not Detected (NotDetected); Influenza AH1, 2009 Not Detected (NotDetected); Influenza AH1, PCR Not Detected (NotDetected); Influenza AH3,PCR Not Detected (NotDetected); Influenza B, PCR Not Detected (NotDetected); Mycoplasma Pneumoniae, PCR Not Detected (NotDetected); Parainfluenza 1, PCR Not Detected (NotDetected); Parainfluenza 2, PCR Not Detected (NotDetected); Parainfluenza 3, PCR Not Detected (NotDetected); Parainfluenza 4, PCR Not Detected (NotDetected)
[2024-11-11 23:42] LABS: VBG HCO3 20.5 mmol/L (23-30); VBG PO2 40.9 mmol/L (28-40)
[2024-11-11 23:46] LABS: Lactate Venous 3.1 mmol/L (0.4-2.0); VBG PCO2 23.5 mmol/L (35-51); VBG PH 7.56 mmol/L (7.31-7.41)
[2024-11-11 23:49] LABS: Albumin Level 3.7 g/dl (3.5-5.0); Chloride 106 mmol/L (98-107); Potassium 3.8 mmoL/L (3.5-5.1); Sodium 138 mmol/L (136-145)
[2024-11-11 23:52] LABS: Alanine Aminotransferase 32 U/L (12-78); Albumin/Globulin Ratio 1.2 (1.1-1.8); Alkaline Phosphatase 119 U/L (38-126); Anion Gap 13.8 mEq/L (5-15); Aspartate Amino Transferase 44 U/L (17-59); Bilirubin,Total 0.7 mg/dl (0.2-1.3); Blood Urea Nitrogen 18 mg/dl (9-20); Carbon Dioxide 22 mmol/L (22.0-30.0); Creatinine Clearance Estimated 34 mL/min (50-200); Creatinine,Serum 1.70 mg/dl (0.66-1.25); Estimated Glomerular Filt Rate 39 ml/min (>60); GFR (African American) 47 ML/MIN (>60); Globulin 3.1 g/dL (1.3-3.2); Total Protein,Serum 6.8 g/dl (6.3-8.2)
[2024-11-11 23:53] LABS: Calcium 8.7 mg/dl (8.4-10.2); Glucose 106 mg/dl (74-100); Magnesium 2.2 mg/dl (1.6-2.3)
[2024-11-11 23:57] LABS: D-Dimer 0.76 ug/mL (0.0-0.5)
[2024-11-12] VITALS (22 sets, daily range): BP systolic 109–158; BP diastolic 54–74; PULSE 66–114; RESP 14–25; TEMP 36.4–37.3; O2SAT 70–98; BMI 22.5; BMI 22.8
[2024-11-12 00:09] LABS: Troponin I 0.34 ng/ml (0.00-0.034)
--- NOTE | 2024-11-12 00:09 | PC.NURSE ---
critical called from lab. notified
[2024-11-12 00:27] LABS: NT Pro Brain Natriuretic Pep. 525 pg/mL (0-450)
--- NOTE | 2024-11-12 00:38 | P.HP_ITS ---
<Statement entered by Ravinder Cortes MD - 11/12/24 14:24> Agree with plan of care as outlined by the FRAUD ANALYST. History of Present Illness *Admission Date: 11/12/24 *Reason for visit:: Shortness of breath *History of present illness: This is an 84-year-old male who has a past medical history significant for coronary artery disease with 8 stents (follows with the [facility] [place]/who recently underwent left heart cath and medical management was r ecommended), COPD, pulmonary hypertension, anxiety, depression, partial seizures, and dementia who presents with a chief complaint of shortness of breath and difficulty breathing with exertion. Patient was recently discharged from our facility due to community-acquired pneumonia and NSTEMI. Patient was discharged home with a follow-up appointment with pulmonology as an outpatient. Unfortunately, patient started to have progressive shortness of air and presented to the emergency room for evaluation. While in the emergency room, room air saturation was 85%. Patient has significant dyspnea while at rest; as a result, hospital medicine was called salted for further management. During my evaluation of the patient, patient states that 1 hour after he got home he attempted to get up and go to the restroom. He was able to go to and from the restroom with minor shortness of breath. On subsequent attempts to go to the restroom, patient had progressive dyspnea with exertion. His dyspnea progressed to shortness of air while at rest. He reports he did use his home nebulizer without any relief of his symptoms. Patient was not discharged home on any home oxygen. He reports no new symptomology only the progressive dyspnea with exertion. He is currently denying any chest pain, lightheadedness, dizziness, fever, chills, rigors, nausea, PND, orthopnea, or diarrhea. Chest x- ray shows moderate mixed interstitial airspace ossifications throughout the left lower lung compatible with pneumonia. Additional lab values obtained include a white blood cell count of 12.7, red blood cell count of 4.1 point, hematocrit 38.3,66 D-dimer of 0.76, creatinine 1.70, GFR of 39, blood glucose of 106, and troponin 0.34. [facility] Disclaimer: The information contained in this section may have been updated after the patient was seen, as this information can be updated by other users. Medical History Tinnitus of right ear Sensorineural hearing loss (SNHL) of both ears Hearing loss Tinnitus Restrictive lung disease History of 2019 novel coronavirus disease (COVID-19) Asthma-COPD overlap syndrome Abnormal PFT Moderate persistent asthma ILD (interstitial lung disease) Centrilobular emphysema Dyspnea on exertion LAURA on CPAP Bradycardia Surgical History History of cardiac cath H/O cervical spine surgery Family History Coronary artery disease Hypertension Social History (Updated 11/09/24 @ 20:28 by Tiffany Walsh RN) Smoking Status: Former smoker tobacco type: cigarettes alcohol intake: never counseling provided: none substance use type: denies use current occupational status: retired Travel in the last 8 weeks?: None household members: spouse housing: house caffeine: Yes Other Medical History Have you received the Flu Vaccine for this season: No Have you received the Pneumonia Vaccine: No Review of Systems Review of Systems Review of systems:: pertinent systems reviewed and negative unless documented below Constitutional Constitutional: Reports system reviewed and no additional complaints, except as documented Eyes Eyes: Reports system reviewed and no additional complaints, except as documented ENT Ears, Nose, Mouth, and Throat: Reports system reviewed and no additional complaints, except as documented *Cardiovascular Cardiovascular: Reports dyspnea and Reports dyspnea on exertion *Respiratory Respiratory: Reports dyspnea and Reports dyspnea on exertion *Gastrointestinal Gastrointestinal: Reports system reviewed and no additional complaints, except as documented *Genitourinary Genitourinary: Reports system reviewed and no additional complaints, except as documented *Musculoskeletal Musculoskeletal: Reports system reviewed and no additional complaints, except as documented Integumentary/Breasts Skin/Breast: Reports system reviewed and no additional complaints, except as documented *Neurologic Neurologic: Reports system reviewed and no additional complaints, except as documented Psychiatric Psychiatric: Reports system reviewed and no additional complaints, except as documented Endocrine Endocrine: Reports system reviewed and no additional complaints, except as documented Hematologic/Lymphatic Hematologic/Lymphatic: Reports system reviewed and no additional complaints, except as documented Allergic/Immunologic Allergic/Immunologic: Reports system reviewed and no additional complaints, except as documented Meds Home Medications and Allergies Home Medications ?Medication ?Instructions ?Recorded ?Confirmed ?Type aspirin 81 mg tablet,delayed 81 mg PO DAILY Heart dise ase 03/19/17 11/09/24 History release (Adult Low Dose Aspirin) sacubitril 24 mg-valsartan 26 mg 1 tab PO BID Heart fa ilure 09/21/21 11/10/24 History tablet Held on 11/11/24. Instructions: Resume on 11/18/24. Your blood pressures were low normal during admission, please follow-up with cardiology to discuss restarting this medication. sildenafil (pulm.hypertension) 20 20 mg PO DIRECTED PRN sexual 02/06/22 11/09/24 Rx mg tablet activity #40 tabs cholecalciferol (vitamin D3) 25 25 mcg PO DAILY 11/09/24 History mcg (1,000 unit) capsule gabapentin 300 mg capsule 300 mg PO HS #30 caps 11/09/24 Rx (Neurontin) lamotrigine 100 mg tablet 150 mg (1.5 x 100 mg) PO BID 06/10/24 11/09/24 Rx Complex partial seizure #270 tabs brimonidine 0.2 % eye drops 1 drp Eye-Both BID 5 11/09/24 History buspirone 5 mg tablet 5 mg PO BID 07/06/24 5 History desvenlafaxine succinate 50 mg 50 mg PO DAILY 07/06/24 11/09/24 History tablet,extended release 24 hr diazepam 2 mg tablet 2 mg PO DAILY PRN Anxiety 11/09/24 History fluticasone 250 mcg-salmeterol 50 1 inh inhalation BID 90 days #180 07/06/24 11/09/24 Rx mcg/dose blistr powdr for ea inhalation latanoprost 0.005 % eye drops 1 drp Eye-Both HS 11/09/24 History atorvastatin 40 mg tablet 40 mg PO HS 11/09/24 5 History ondansetron 4 mg disintegrating 4 mg PO Q8 PRN Nausea And Vomiting 11/09/24 11/10/24 History tablet trazodone 50 mg tablet 100 mg PO HS PRN Sleep 11/0911/10/24 History albuterol sulfate 90 mcg/actuation 2 inh inhalation Q4 HP PRN 11/10/24 11/10/24 History aerosol inhaler shortness of breath or wheez ing memantine 10 mg tablet 10 mg PO BID 11/10/24 History levofloxacin 750 mg tablet 750 mg PO Q48H 4 days #2 ta bs 11/11/24 Rx New Prescriptions to Start Prescriptions: Allergies Allergy/AdvReac Type Severity Reaction Status Date / Time levetiracetam (From [facility]) AdvReac Severe anger, Verified 10/06/24 14:44 depression, gait disturbance Exam Data for Last 24 hours Vital signs and Labs for Last 24 Hours: Temp Pulse Resp BP Pulse Ox O2 Del Method 98.4 F 94 H 20 149/71 H 87 L Room Air 11/11/24 23:31 11/11/24 23:31 11/11/24 23:31 11/11/24 23:31 11/11/24 23:31 11/11/24 23:31 Laboratory Results - last 24 hr 11/11/24 23:30: WBC 12.7 H D, RBC 4.11 L, Hct 38.3 L, MCV 93.2, MCH 30.9, MCHC 33.2, RDW 15.0, Plt Count 234, MPV 8.7, Neut % (Auto) 78.5, Lymph % (Auto) 9.4 L , [place] % (Auto) 6.9, Eos % (Auto) 3.8, Baso % (Auto) 0.3, Neut # (Auto) 10.0 H, Lymph # (Auto) 1.2, [place] # (Auto) 0.9, Eos # (Auto) 0.5 H, Baso # (Auto) 0.0, D- Dimer 0.76 H, VBG pH 7.56 H, VBG pCO2 23.5 L, VBG pO2 40.9 H, VBG HCO3 20.5 L, VBG Total CO2 21.2 L, VBG O2 Saturation 84.4 H, VBG Base Excess -1.7, VBG Lactic Acid 3.1 H, Sodium 138, Potassium 3.8, Chloride 106, Carbon Dioxide 22, Anion Gap 13.8, BUN 18, Creatinine 1.70 H, Estimated Creat Clear 34, Estimated GFR 39 L, Est GFR ( Amer) 47 L, Glucose 106 H, Calcium 8.7, Magnesium 2.2, Total Bilirubin 0.7, AST 44 D, ALT 32 D, Alkaline Phosphatase 119, Troponin I 0.34 H , Total Protein 6.8, Albumin 3.7, Globulin 3.1, Albumin/Globulin Ratio 1.2 I & O for Last 24 hours: Intake & Output 11/09/24 11/10/24 11/11/24 11/12/24 23:59 23:59 23:59 23:59 Weight 72.575 kg Constitutional Constitutional: moderate distress, thin and cooperative *Routine HEENT Exam Head: Present normocephalic and atraumatic Eye: Present EOMI ENT: Present mucous membranes moist *Routine Neck Exam Neck: Present supple, full ROM and trachea midline *Routine Respiratory Exam Respiratory: Present decreased breath sounds, respiratory distress, distant breath sounds and diminished air movement Comments: Patient has conversational dyspnea *Routine Cardiovascular Exam Cardiovascular: Present RRR and Normal S1 *Routine Abdominal Exam Abdominal: Present soft and normoactive bowel sounds *Routine Rectal Exam Rectal:: deferred *Routine Genitalia Exam Genitalia:: deferred *Routine Extremities Exam Extremities: Present full ROM, pulses intact and normal capillary refill Routine Back/Spine/Pelvis Exam Back/Spine: Present full ROM *Routine Skin Exam Skin: Present intact, dry and warm *Routine Neurological Exam Neurological: Present alert, oriented X3, moving all extremities and normal speech Routine Psychiatric Exam Psychiatric: Present normal affect, normal thought process, cooperative, good insight, good judgment and anxious H&P: Result Impressions 84-year-old male who has asthma with overlapping COPD and known coronary artery disease presents with respiratory distress and requiring supplemental oxygen Assessment and Plan *Assessment and plan (1) Pneumonia: Status: Acute Qualifiers: Laterality: left Lung location: lower lobe of lung Pneumonia type: due to unspecified organism Qualified Code(s): J18.9 - Pneumonia, unspecified organism Category: Medical Code(s): J18.9 - Pneumonia, unspecified organism (2) Respiratory failure with hypoxia: Status: Acute Qualifiers: Chronicity: acute Qualified Code(s): J96.01 - Acute respiratory failure with hypoxia Category: Medical Code(s): J96.91 - Respiratory failure, unspecified with hypoxia (3) Elevated troponin: Status: Acute Category: Medical Code(s): R79.89 - Other specified abnormal findings of blood chemistry Plan Assessment: Pneumonia Leukocytosis - Will continue 750 mg of levofloxacin every 48 hours-patient was evaluated by pulmonology who recommended to continue 5-day course - Sputum cultures did grow gram-negative rods without any sensitivity posted - Pulmonology also recommended to continue Advair 250 mg twice daily along with DuoNebs Q4 as needed-Will give every 4 DuoNebs every 6 hours Acute on chronic hypoxic respiratory failure - Will give patient supplemental oxygen to maintain oxygen saturation greater than 92% - Prior to discharge, we will have patient evaluated for home O2 needs - Patient already has home nebulizer - Patient does have overlapping asthma is not clear if patient has triggers at home that is leading to exacerbation of restrictive airway disease - Will start Singulair 10 mg daily Elevated troponin -Patient recently underwent left heart cath and medical management was recommended - Currently without any findings consistent with acute coronary syndrome to include negative EKG with ST segment elevation or depression Chronic kidney disease -Patient is close to baseline creatinine -Will continue to monitor Plan: Admit patient to the MedSurg unit Saline lock Case management Cardiac diet CBC/BMP daily 5 mg [place] p.o. every 4 hours for moderate pain 5000 units of heparin SQ 3 times daily 4 mg Zofran IV push every 8 hours. Nausea vomit Full code I will discussed this case with attending physician Dr. Cortes and I look forward to more input
--- NOTE | 2024-11-12 00:53 | PC.NURSE ---
report called to Aurea KING
[2024-11-12 01:00] LABS: Hemoglobin 12.7 g/dL (14.1-18.0)
--- NOTE | 2024-11-12 01:34 | PC.NURSE ---
Patient arrived to floor via wheelchair from ED at 01:24.
[2024-11-12 03:45] LABS: Reflex Lactic Add Lactic Reflex
[2024-11-12 04:47] LABS: Hematocrit 36.1 % (42.0-52.0); Hemoglobin 11.8 g/dL (14.1-18.0); Immature Granulocytes % 0.7 %; Mean Corpuscular HGB Conc 32.7 g/dL (31.8-35.4); Mean Corpuscular Hemoglobin 31.4 pg (27.0-31.2); Mean Corpuscular Volume 96.0 fl (80-94); Nucleated Red Blood Cells % 0 %; Platelet Count 200 K/mm3 (142-424); Red Blood Count 3.76 M/mm3 (4.60-6.20); Red Cell Distribution Width-SD 53.8 fL; White Blood Count 12.3 K/mm3 (4.8-10.8)
[2024-11-12 04:59] LABS: Chloride 108 mmol/L (98-107); Potassium 3.6 mmoL/L (3.5-5.1); Sodium 139 mmol/L (136-145)
[2024-11-12 05:02] LABS: Anion Gap 10.6 mEq/L (5-15); Blood Urea Nitrogen 17 mg/dl (9-20); Calcium 8.1 mg/dl (8.4-10.2); Carbon Dioxide 24 mmol/L (22.0-30.0); Creatinine Clearance Estimated 40 mL/min (50-200); Creatinine,Serum 1.50 mg/dl (0.66-1.25); Estimated Glomerular Filt Rate 45 ml/min (>60); GFR (African American) 54 ML/MIN (>60); Glucose 129 mg/dl (74-100); Lactic Acid Follow Up (RFLX 1) 2.0 mmol/L (0.7-2.1)
[2024-11-12] MEDS: IPRATROPIUM/ALBUTEROL 3 ML NEB IH ×4 (06:46→23:36)
--- NOTE | 2024-11-12 08:25 | PC.NURSE ---
As Pt was being admitted Pt asked for his [place] Sleeping meds. Asked the call center team leader MD Gant. He told me he did not give sleeping medicaiton after 2 Am and it was like 3 am. CORNELIUS TIAN RN
--- NOTE | 2024-11-12 08:29 | CT_ITS ---
FINAL REPORT TECHNIQUE: Axial imaging of the chest is obtained after the administration of contrast. 3-D MIP reformatted images were also obtained and reviewed per PE protocol. This study was performed with techniques to keep radiation doses as low as reasonably achievable, (ALARA). Individualized dose reduction techniques using automated exposure control or adjustment of mA and/or kV according to the patient's size were employed. CLINICAL HISTORY: Worsening hypoxia, with hemoptysis COMPARISON: 04/05/2020 FINDINGS: The pulmonary arteries are well filled. There is no evidence of pulmonary embolus. There is no aortic dissection. Heart size is normal. There is no axillary lymphadenopathy. There has been interval increase in the mediastinal lymphadenopathy. Right paratracheal lymph node on series 3, image 16 measures 19 mm, was 15 mm. Left prevascular lymph node measures 18 mm, was 12 mm. Subcarinal lymph node measures 31 mm, was 20 mm. There are mildly enlarged bilateral hilar lymph nodes. New small pleural effusions are identified. There is no pericardial effusion. Changes of emphysema are again identified. Bilateral upper lobe masslike opacities are unchanged and partially calcified. There are extensive new ground glass opacities in the left greater than right lungs which could be related to pulmonary edema or pneumonia. Limited evaluation of the upper abdomen is without acute abnormality. There is a stable chronic T12 fracture. IMPRESSION: New ground glass opacities which could be related to pulmonary edema and/or pneumonia. No pulmonary embolism. Lymphadenopathy has increased since prior, favor reactive but consider follow-up. Reviewed, Interpreted and Dictated by Lucero Stuart MD Transcribed by Sophia Gould Authenticated and [facility]
[2024-11-12 08:52] LABS: C-Reactive Protein 62.6 mg/L (0-4)
[2024-11-12 09:03] LABS: Procalcitonin 0.248 ng/mL (0.0-2.0)
[2024-11-12 09:16] LABS: ABG HCO3 20.0 mmhg (22.0-26.0); ABG PCO2 22.4 mmhg (35.0-45.0); ABG PO2 58.2 mmhg (80-100); ABG TCO2 20.7 mmhg (23-27)
[2024-11-12 09:18] LABS: Source L RADIAL
[2024-11-12 09:21] LABS: ABG PH 7.57 mmol/L (7.35-7.45)
[2024-11-12] MEDS: HEPARIN SODIUM 5,000 UNIT/ML VIAL 5000 UNIT SUBCUT (09:21)
[2024-11-12] MEDS: FUROSEMIDE 20 MG/2 ML VIAL IV (09:26)
--- NOTE | 2024-11-12 09:31 | EXP.PULM.PN ---
Subjective *Date: 11/12/24 *Time: 09:31 Pulmonology Exam Inpatient Vital signs and Labs for Last 24 Hours: Temp Pulse Resp BP Pulse Ox O2 Del Method O2 Flow Rate 97.5 F L 72 19 116/58 L 96 Nasal Cannula 4 11/12/24 08:00 11/12/24 08:00 11/12/24 08:00 11/12/24 08:00 11/12/24 08:00 11/12/24 08:00 11/12/24 08:00 Laboratory Results - last 24 hr 11/11/24 23:30: WBC 12.7 H D, RBC 4.11 L, Hgb 12.7 L D, Hct 38.3 L, MCV 93.2, MCH 30.9, MCHC 33.2, RDW 15.0, Plt Count 234, MPV 8.7, Neut % (Auto) 78.5, Lymph % (Auto) 9.4 L, [place] % (Auto) 6.9, Eos % (Auto) 3.8, Baso % (Auto) 0.3, Neut # (Auto) 10.0 H, Lymph # (Auto) 1.2, [place] # (Auto) 0.9, Eos # (Auto) 0.5 H, Baso # (Auto) 0.0, D-Dimer 0.76 H, VBG pH 7.56 H, VBG pCO2 23.5 L, VBG pO2 40.9 H, VBG HCO3 20.5 L, VBG Total CO2 21.2 L, VBG O2 Saturation 84.4 H, VBG Base Excess -1.7, VBG Lactic Acid 3.1 H, Sodium 138, Potassium 3.8, Chloride 106, Carbon Dioxide 22, Anion Gap 13.8, BUN 18, Creatinine 1.70 H, Estimated Creat Clear 34, Estimated GFR 39 L, Est GFR ( Amer) 47 L, Glucose 106 H, Calcium 8.7, Magnesium 2.2, Total Bilirubin 0.7, AST 44 D, ALT 32 D, Alkaline Phosphatase 119, Troponin I 0.34 H, NT-Pro-B Natriuret Pep 525 H, Total Protein 6.8, Albumin 3.7, Globulin 3.1, Albumin/Globulin Ratio 1.2 11/11/24 23:37: Chlamy pneumoniae PCR Not detected, Adenovirus (PCR) Not detected, B. pertussis DNA (PCR) Not detected, Coronavirus OC43 (PCR) Not detected, Coronavirus HKU1 (PCR) Not detected, Coronavirus 229E (PCR) Not detected, SARS-CoV-2 (PCR) Not detected, Coronavirus NL63 (PCR) Not detected, Human Metapneumovir PCR Not detected, Influenza A (H1) PCR Not detected, Influ A (H1N1/09) PCR Not detected, Influenza A (H3) PCR Not detected, Influenza Type A (PCR) Not detected, Influenza Type B (PCR) Not detected, M. pneumoniae (PCR) Not detected, Parainfluenza 1 (PCR) Not detected, Parainfluenza 2 (PCR) Not detected, Parainfluenza 3 (PCR) Not detected, Parainfluenza 4 (PCR) Not detected, RSV (PCR) Not detected, Entero/Rhino (PCR) Detected A 11/12/24 04:41: WBC 12.3 H, RBC 3.76 L, Hgb 11.8 L, Hct 36.1 L, MCV 96.0 H, MCH 31.4 H, MCHC 32.7, RDW 15.2, Plt Count 200, MPV 9.0, Neut % (Auto) 77.4, Lymph % (Auto) 11.5, [place] % (Auto) 6.0, Eos % (Auto) 4.2, Baso % (Auto) 0.2, Neut # (Auto) 9.5 H, Lymph # (Auto) 1.4, [place] # (Auto) 0.7, Eos # (Auto) 0.5 H, Baso # (Auto) 0.0, Sodium 139, Potassium 3.6, Chloride 108 H, Carbon Dioxide 24, Anion Gap 10.6, BUN 17, Creatinine 1.50 H, Estimated Creat Clear 40, Estimated GFR 45 L, Est GFR ( Amer) 54 L, Glucose 129 H D, Lactate 2.0, Calcium 8.1 L, C-Reactive Protein 62.6 H D, Procalcitonin 0.248 11/12/24 09:13: Specimen Source L radial, O2 % 4lpm, ABG pH 7.57 H*, ABG pCO2 22.4 L, ABG pO2 58.2 L, ABG HCO3 20.0 L, ABG Total CO2 20.7 L, ABG O2 Saturation 94, ABG Base Excess -2.1, Hair Test Acceptable I & O for Labs for Last 24 Hours: Intake & Output 11/09/24 11/10/24 11/11/24 11/12/24 23:59 23:59 23:59 23:59 Intake Total 360 / 360 Balance 360 / 360 Weight 160 lb 168 lb 7 oz Assessment and Plan *Assessment and plan (1) Pneumonia: Status: Acute Category: Medical Code(s): J18.9 - Pneumonia, unspecified organism Plan Mr. Magdaleno is a 84-year-old male with history of asthma COPD overlap syndrome, cervical spondylosis with polyneuropathy bilateral lower extremity weakness, baseline not using any oxygen supplementation, history of sleep apnea using NIV, presented to the ER with 2-week history of worsening shortness of breath productive cough and pulmonary was called for further evaluation and management. Patient recently completed azithromycin course for presumed pneumonia as an outpatient basis. Afebrile. Hemodynamically stable. Mild neutrophilic predominant leukocytosis upon admission improving. COVID-19 and flu PCR panel negative. Chest x-ray upon admission right lower lobe patchy airspace disease along with atelectasis. Sputum cultures preliminary showing gram-negative rods. Currently receiving Zosyn. Admits improving respiratory symptoms. On room air saturating 96% this morning. Minimal respiratory distress. Repeat chest x-ray reviewed, improving right lower lobe airspace disease. Interval update: No acute respiratory vents overnight. Plan: Antibiotics can be weaned to levofloxacin to complete a total of 5-day course from pulmonary standpoint for the noted right lower lobe pneumonia. Follow-up final sputum culture results. Continue home Advair inhaler 250 twice daily along with DuoNebs 4 times daily as needed # Thank you for involving pulmonary in this patient care. Will follow the patient in pulmonary clinic 1 to 2 weeks postdischarge.
[2024-11-12] MEDS: SODIUM CHLORIDE 0.9% 10ML SYR (RAD ONLY) 10 ML IV (10:08)
[2024-11-12] MEDS: IOPAMIDOL-370 (76%);100ML BOTTLE 80 ML IV (10:08)
[2024-11-12] MEDS: 0.9 % SODIUM CHLORIDE 50 ML VIAL IV (10:08)
[2024-11-12] MEDS: ONDANSETRON 4MG/2ML VIAL 4 MG IV (10:37)
--- NOTE | 2024-11-12 11:15 | EXP.PULM.CON ---
History of Present Illness History of present illness: Mr. Magdaleno is a 84-year-old male with history of asthma COPD overlap syndrome, cervical spondylosis with polyneuropathy bilateral lower extremity weakness, baseline not using any oxygen supplementation discharged to hospital yesterday after being treated for pneumonia on examination on room air with no respiratory distress prior to discharge when home noted no acute worsening respiratory distress presented to the hospital with x-ray showing significant worsening airspace disease needing new oxygen requirements and presented to the ER and pulmonary was called for further evaluation and management. [facility] Disclaimer: The information contained in this section may have been updated after the patient was seen, as this information can be updated by other users. Medical History (Updated 11/12/24 @ 12:43 by Girish Campo MD) Acute respiratory failure with hypoxia Tinnitus of right ear Sensorineural hearing loss (SNHL) of both ears Hearing loss Tinnitus Restrictive lung disease History of 2019 novel coronavirus disease (COVID-19) Asthma-COPD overlap syndrome Abnormal PFT Moderate persistent asthma ILD (interstitial lung disease) Centrilobular emphysema Dyspnea on exertion LAURA on CPAP Bradycardia Surgical History History of cardiac cath H/O cervical spine surgery Family History Coronary artery disease Hypertension Social History (Updated 11/12/24 @ 02:44 by Aurea Young RN) Smoking Status: Former smoker tobacco type: cigarettes alcohol intake: never counseling provided: none substance use type: denies use current occupational status: retired Travel in the last 8 weeks?: None household members: spouse housing: house caffeine: Yes Contact w/someone who lives/traveled outside [place] past 30 days?: No Exposure to someone with infectious disease in past 14 days?: No Review of Systems Constitutional Constitutional: Reports anorexia, Reports body ache(s) and Reports fatigue Eyes Eyes: Denies eye discharge, Denies dry eyes, Denies irritation and Denies itchy eyes ENT Ears, Nose, Mouth, and Throat: Denies epistaxis, Denies facial pain, Denies lip swelling and Denies throat swelling *Cardiovascular Cardiovascular: Reports dyspnea and Reports dyspnea on exertion *Respiratory Respiratory: Reports change in phlegm color, Reports chest congestion, Reports cough, Reports dyspnea, Reports dyspnea on exertion, Denies excessive phlegm production, Denies pain on inspiration, Denies pain with cough and Denies wheezing *Gastrointestinal Gastrointestinal: Denies abdominal pain, Denies belching and Denies cramping *Musculoskeletal Musculoskeletal: Reports back pain, Reports myalgias and Reports other (No small joint swelling or Pain) *Neurologic Neurologic: Reports system reviewed and no additional complaints, except as documented Psychiatric Psychiatric: Denies homicidal ideation and Denies suicidal ideation Endocrine Endocrine: Reports fatigue and Denies heat intolerance Hematologic/Lymphatic Hematologic/Lymphatic: Denies easy bleeding and Denies lymphadenopathy Allergic/Immunologic Allergic/Immunologic: Denies itchy eyes, Denies lip swelling, Denies throat swelling and Denies wheezing Pulmonology Exam Inpatient Vital signs and Labs for Last 24 Hours: Temp Pulse Resp BP Pulse Ox O2 Del Method O2 Flow Rate 97.5 F L 82 19 116/58 L 88 L Nasal Cannula 4.5 11/12/24 08:00 11/12/24 11:01 11/12/24 08:00 11/12/24 08:00 11/12/24 11:01 11/12/24 11:01 11/12/24 11:01 Laboratory Results - last 24 hr 11/11/24 23:30: WBC 12.7 H D, RBC 4.11 L, Hgb 12.7 L D, Hct 38.3 L, MCV 93.2, MCH 30.9, MCHC 33.2, RDW 15.0, Plt Count 234, MPV 8.7, Neut % (Auto) 78.5, Lymph % (Auto) 9.4 L, [place] % (Auto) 6.9, Eos % (Auto) 3.8, Baso % (Auto) 0.3, Neut # (Auto) 10.0 H, Lymph # (Auto) 1.2, [place] # (Auto) 0.9, Eos # (Auto) 0.5 H, Baso # (Auto) 0.0, D-Dimer 0.76 H, VBG pH 7.56 H, VBG pCO2 23.5 L, VBG pO2 40.9 H, VBG HCO3 20.5 L, VBG Total CO2 21.2 L, VBG O2 Saturation 84.4 H, VBG Base Excess -1.7, VBG Lactic Acid 3.1 H, Sodium 138, Potassium 3.8, Chloride 106, Carbon Dioxide 22, Anion Gap 13.8, BUN 18, Creatinine 1.70 H, Estimated Creat Clear 34, Estimated GFR 39 L, Est GFR ( Amer) 47 L, Glucose 106 H, Calcium 8.7, Magnesium 2.2, Total Bilirubin 0.7, AST 44 D, ALT 32 D, Alkaline Phosphatase 119, Troponin I 0.34 H, NT-Pro-B Natriuret Pep 525 H, Total Protein 6.8, Albumin 3.7, Globulin 3.1, Albumin/Globulin Ratio 1.2 11/11/24 23:37: Chlamy pneumoniae PCR Not detected, Adenovirus (PCR) Not detected, B. pertussis DNA (PCR) Not detected, Coronavirus OC43 (PCR) Not detected, Coronavirus HKU1 (PCR) Not detected, Coronavirus 229E (PCR) Not detected, SARS-CoV-2 (PCR) Not detected, Coronavirus NL63 (PCR) Not detected, Human Metapneumovir PCR Not detected, Influenza A (H1) PCR Not detected, Influ A (H1N1/09) PCR Not detected, Influenza A (H3) PCR Not detected, Influenza Type A (PCR) Not detected, Influenza Type B (PCR) Not detected, M. pneumoniae (PCR) Not detected, Parainfluenza 1 (PCR) Not detected, Parainfluenza 2 (PCR) Not detected, Parainfluenza 3 (PCR) Not detected, Parainfluenza 4 (PCR) Not detected, RSV (PCR) Not detected, Entero/Rhino (PCR) Detected A 11/12/24 04:41: WBC 12.3 H, RBC 3.76 L, Hgb 11.8 L, Hct 36.1 L, MCV 96.0 H, MCH 31.4 H, MCHC 32.7, RDW 15.2, Plt Count 200, MPV 9.0, Neut % (Auto) 77.4, Lymph % (Auto) 11.5, [place] % (Auto) 6.0, Eos % (Auto) 4.2, Baso % (Auto) 0.2, Neut # (Auto) 9.5 H, Lymph # (Auto) 1.4, [place] # (Auto) 0.7, Eos # (Auto) 0.5 H, Baso # (Auto) 0.0, Sodium 139, Potassium 3.6, Chloride 108 H, Carbon Dioxide 24, Anion Gap 10.6, BUN 17, Creatinine 1.50 H, Estimated Creat Clear 40, Estimated GFR 45 L, Est GFR ( Amer) 54 L, Glucose 129 H D, Lactate 2.0, Calcium 8.1 L, C-Reactive Protein 62.6 H D, Procalcitonin 0.248 11/12/24 09:13: Specimen Source L radial, O2 % 4lpm, ABG pH 7.57 H*, ABG pCO2 22.4 L, ABG pO2 58.2 L, ABG HCO3 20.0 L, ABG Total CO2 20.7 L, ABG O2 Saturation 94, ABG Base Excess -2.1, Hair Test Acceptable I & O for Labs for Last 24 Hours: Intake & Output 11/09/24 11/10/24 11/11/24 11/12/24 23:59 23:59 23:59 23:59 Intake Total 360 / 360 Balance 360 / 360 Weight 160 lb 168 lb 7 oz Microbiology Reports for the Last 24 Hours: Microbiology 11/10/24 09:23 Sputum - Expectorated Sputum Gram Stain - Final 11/10/24 09:23 Sputum - Expectorated Sputum Sputum Culture - Preliminary Gram Negative Rods Constitutional: Present severe distress Head: Present normocephalic and atraumatic ENT: Present normal exam, normal oropharynx and mucous membranes moist Neck: Present normal inspection and full ROM Respiratory: Present respiratory distress, rhonchi and able to speak in complete sentences; Absent wheezes or normal respiratory effort Cardiac: Present S1/S2, Tachycardia and radial pulses present GI: Present soft and distention; Absent tenderness or guarding Skin: Present intact; Absent cyanosis or jaundice Neuro: Present alert, awake and oriented x 3 Extremities: Present normal inspection; Absent clubbing or cyanosis Psychiatric: Present normal affect and cooperative Meds Home Medications and Allergies Home Medications ?Medication ?Instructions ?Recorded ?Confirmed ?Type aspirin 81 mg tablet,delayed 81 mg PO DAILY Heart disease 03/19/17 11/12/24 History release (Adult Low Dose Aspirin) sacubitril 24 mg-valsartan 26 mg 1 tab PO BID Heart failure 09/21/21 11/12/24 History tablet Held on 11/11/24. Instructions: Resume on 11/18/24. Your blood pressures were low normal during admission, please follow-up with cardiology to discuss restarting this medication. sildenafil (pulm.hypertension) 20 20 mg PO DIRECTED PRN sexual 02/06/22 11/12/24 Rx mg tablet activity #40 tabs cholecalciferol (vitamin D3) 25 25 mcg PO DAILY 07/26/22 11/12/24 History mcg (1,000 unit) capsule gabapentin 300 mg capsule 300 mg PO HS #30 caps 08/27/23 11/12/24 Rx (Neurontin) lamotrigine 100 mg tablet 150 mg (1.5 x 100 mg) PO BID 06/10/24 11/12/24 Rx Complex partial seizure #270 tabs brimonidine 0.2 % eye drops 1 drp Eye-Both BID 07/06/24 11/12/24 History buspirone 5 mg tablet 5 mg PO BID 07/06/24 11/12/24 History desvenlafaxine succinate 50 mg 50 mg PO DAILY 07/06/24 11/12/24 History tablet,extended release 24 hr diazepam 2 mg tablet 2 mg PO DAILY PRN Anxiety 07/06/24 11/12/24 History fluticasone 250 mcg-salmeterol 50 1 inh inhalation BID 90 days #180 07/06/24 11/12/24 Rx mcg/dose blistr powdr for ea inhalation latanoprost 0.005 % eye drops 1 drp Eye-Both HS 07/06/24 11/12/24 History atorvastatin 40 mg tablet 40 mg PO HS 11/09/24 11/12/24 History ondansetron 4 mg disintegrating 4 mg PO Q8 PRN Nausea And Vomiting 11/09/24 11/12/24 History tablet trazodone 50 mg tablet 100 mg PO HS PRN Sleep 11/09/24 11/12/24 History albuterol sulfate 90 mcg/actuation 2 inh inhalation Q4HP PRN 11/10/24 11/12/24 History aerosol inhaler shortness of breath or wheezing memantine 10 mg tablet 10 mg PO BID 11/10/24 11/12/24 History levofloxacin 750 mg tablet 750 mg PO Q48H 4 days #2 tabs 11/11/24 11/12/24 Rx New Prescriptions to Start Prescriptions: Allergies Allergy/AdvReac Type Severity Reaction Status Date / Time levetiracetam (From [facility]) AdvReac Severe anger, Verified 10/06/24 14:44 depression, gait disturbance Results Laboratory Findings 11/12/24 04:41 11/12/24 04:41 ABG ABG pH 7.57 mmol/L (7.35-7.45) H* 11/12/24 09:13 ABG pCO2 22.4 mmhg (35.0-45.0) L 11/12/24 09:13 ABG pO2 58.2 mmhg (80-100) L 11/12/24 09:13 ABG O2 Saturation 94 % (90-100) 11/12/24 09:13 PT/INR, D-dimer D-Dimer 0.76 ug/mL (0.0-0.5) H 11/11/24 23:30 Abnormal lab findings: Abnormal Labs 11/11/24 11/11/24 11/12/24 23:30 23:37 04:41 WBC 12.7 H D 12.3 H RBC 4.11 L 3.76 L Hgb 12.7 L D 11.8 L Hct 38.3 L 36.1 L MCV 96.0 H MCH 31.4 H Lymph % (Auto) 9.4 L Neut # (Auto) 10.0 H 9.5 H Eos # (Auto) 0.5 H 0.5 H D-Dimer 0.76 H ABG pH ABG pCO2 ABG pO2 ABG HCO3 ABG Total CO2 VBG pH 7.56 H VBG pCO2 23.5 L VBG pO2 40.9 H VBG HCO3 20.5 L VBG Total CO2 21.2 L VBG O2 Saturation 84.4 H VBG Lactic Acid 3.1 H Chloride 108 H Creatinine 1.70 H 1.50 H Estimated GFR 39 L 45 L Est GFR ( Amer) 47 L 54 L Glucose 106 H 129 H D Calcium 8.1 L Troponin I 0.34 H C-Reactive Protein 62.6 H D NT-Pro-B Natriuret Pep 525 H Entero/Rhino (PCR) Detected A 11/12/24 09:13 WBC RBC Hgb Hct MCV MCH Lymph % (Auto) Neut # (Auto) Eos # (Auto) D-Dimer ABG pH 7.57 H* ABG pCO2 22.4 L ABG pO2 58.2 L ABG HCO3 20.0 L ABG Total CO2 20.7 L VBG pH VBG pCO2 VBG pO2 VBG HCO3 VBG Total CO2 VBG O2 Saturation VBG Lactic Acid Chloride Creatinine Estimated GFR Est GFR ( Amer) Glucose Calcium Troponin I C-Reactive Protein NT-Pro-B Natriuret Pep Entero/Rhino (PCR) Assessment and Plan *Assessment and plan (1) Pneumonia: Status: Acute Category: Medical Code(s): J18.9 - Pneumonia, unspecified organism (2) Acute respiratory failure with hypoxia: Status: Acute Category: Medical Code(s): J96.01 - Acute respiratory failure with hypoxia Plan Mr. Magdaleno is a 84-year-old male with history of asthma COPD overlap syndrome, cervical spondylosis with polyneuropathy bilateral lower extremity weakness, baseline not using any oxygen supplementation discharged to hospital yesterday after being treated for pneumonia on examination on room air with no respiratory distress prior to discharge when home noted no acute worsening respiratory distress presented to the hospital with x-ray showing significant worsening airspace disease needing new oxygen requirements and presented to the ER and pulmonary was called for further evaluation and management. Afebrile. Hemodynamically stable. Mild neutrophilic predominant leukocytosis relatively stable from yesterday. Respiratory viral PCR panel positive for entero and rhinovirus. CTA PE protocol no evidence of pulmonary embolism. Bilateral diffuse ground glass opacities concerning for atypical/viral pneumonia. Echo from most recent admission normal LVEF. Diastolic dysfunction. Pro-Mart within normal limits. CRP elevated at 62.6. Hemoglobin stable. Monitor closely. Plan: Change antibiotics to vancomycin and cefepime pending final culture results as MRSA PCR. Follow with repeat blood and sputum cultures DuoNebs every 6 hours along with Pulmicort every 12 scheduled
--- NOTE | 2024-11-12 11:38 | ECG_ITS ---
APPROVED REPORT Exam: Resting ECG HR:91 bpm ECG Measurements Heart Rate 91 AXES NH 153 P 74 QRSd 94 QRS 135 QT 374 T 23 QTc 422 Conclusion SINUS RHYTHM WITH SINUS ARRHYTHMIA INCOMPLETE RIGHT BUNDLE BRANCH BLOCK [90+ ms QRS DURATION, TERMINAL R IN V1/V2, 40+ ms S IN I/aVL/V4/V5/V6] POSSIBLE RIGHT VENTRICULAR HYPERTROPHY [SOME/ALL OF: PROMINENT R IN V1, LATE TRANSITION, RAD, JOSE DE JESUS, SSS] ABNORMAL ECG UNCONFIRMED REPORT Electronically signed by : Ferdinand Steven MD 11/13/2024 08:40:38
--- NOTE | 2024-11-12 12:47 | EXP.PHA.CONS ---
Pharmacy Consult Date: 11/12/24 Time: 12:48 Referring provider: DR. CAMPO Reason for Consult:: VANCOMYCIN DOSING Allergies Allergy/AdvReac Type Severity Reaction Status Date / Time levetiracetam (From [facility]) AdvReac Severe anger, Verified 10/06/24 14:44 depression, gait disturbance Home Medications ?Medication ?Instructions ?Recorded ?Confirmed ?Type aspirin 81 mg tablet,delayed 81 mg PO DAILY Heart disease 03/19/17 11/12/24 History release (Adult Low Dose Aspirin) sacubitril 24 mg-valsartan 26 mg 1 tab PO BID Heart failure 09/21/21 11/12/24 History tablet Held on 11/11/24. Instructions: Resume on 11/18/24. Your blood pressures were low normal during admission, please follow-up with cardiology to discuss restarting this medication. sildenafil (pulm.hypertension) 20 20 mg PO DIRECTED PRN sexual 02/06/22 11/12/24 Rx mg tablet activity #40 tabs cholecalciferol (vitamin D3) 25 25 mcg PO DAILY 07/26/22 11/12/24 History mcg (1,000 unit) capsule gabapentin 300 mg capsule 300 mg PO HS #30 caps 08/27/23 11/12/24 Rx (Neurontin) lamotrigine 100 mg tablet 150 mg (1.5 x 100 mg) PO BID 06/10/24 11/12/24 Rx Complex partial seizure #270 tabs brimonidine 0.2 % eye drops 1 drp Eye-Both BID 07/06/24 11/12/24 History buspirone 5 mg tablet 5 mg PO BID 07/06/24 11/12/24 History desvenlafaxine succinate 50 mg 50 mg PO DAILY 07/06/24 11/12/24 History tablet,extended release 24 hr diazepam 2 mg tablet 2 mg PO DAILY PRN Anxiety 07/06/24 11/12/24 History fluticasone 250 mcg-salmeterol 50 1 inh inhalation BID 90 days #180 07/06/24 11/12/24 Rx mcg/dose blistr powdr for ea inhalation latanoprost 0.005 % eye drops 1 drp Eye-Both HS 07/06/24 11/12/24 History atorvastatin 40 mg tablet 40 mg PO HS 11/09/24 11/12/24 History ondansetron 4 mg disintegrating 4 mg PO Q8 PRN Nausea And Vomiting 11/09/24 11/12/24 History tablet trazodone 50 mg tablet 100 mg PO HS PRN Sleep 11/09/24 11/12/24 History albuterol sulfate 90 mcg/actuation 2 inh inhalation Q4HP PRN 11/10/24 11/12/24 History aerosol inhaler shortness of breath or wheezing memantine 10 mg tablet 10 mg PO BID 11/10/24 11/12/24 History levofloxacin 750 mg tablet 750 mg PO Q48H 4 days #2 tabs 11/11/24 11/12/24 Rx New Prescriptions to Start Prescriptions: Height: 1.83 m Weight: 76.402 kg Laboratory Results:: Laboratory Results - last 24 hr 11/11/24 23:30: WBC 12.7 H D, RBC 4.11 L, Hgb 12.7 L D, Hct 38.3 L, MCV 93.2, MCH 30.9, MCHC 33.2, RDW 15.0, Plt Count 234, MPV 8.7, Neut % (Auto) 78.5, Lymph % (Auto) 9.4 L, [place] % (Auto) 6.9, Eos % (Auto) 3.8, Baso % (Auto) 0.3, Neut # (Auto) 10.0 H, Lymph # (Auto) 1.2, [place] # (Auto) 0.9, Eos # (Auto) 0.5 H, Baso # (Auto) 0.0, D-Dimer 0.76 H, VBG pH 7.56 H, VBG pCO2 23.5 L, VBG pO2 40.9 H, VBG HCO3 20.5 L, VBG Total CO2 21.2 L, VBG O2 Saturation 84.4 H, VBG Base Excess -1.7, VBG Lactic Acid 3.1 H, Sodium 138, Potassium 3.8, Chloride 106, Carbon Dioxide 22, Anion Gap 13.8, BUN 18, Creatinine 1.70 H, Estimated Creat Clear 34, Estimated GFR 39 L, Est GFR ( Amer) 47 L, Glucose 106 H, Calcium 8.7, Magnesium 2.2, Total Bilirubin 0.7, AST 44 D, ALT 32 D, Alkaline Phosphatase 119, Troponin I 0.34 H, NT-Pro-B Natriuret Pep 525 H, Total Protein 6.8, Albumin 3.7, Globulin 3.1, Albumin/Globulin Ratio 1.2 11/11/24 23:37: Chlamy pneumoniae PCR Not detected, Adenovirus (PCR) Not detected, B. pertussis DNA (PCR) Not detected, Coronavirus OC43 (PCR) Not detected, Coronavirus HKU1 (PCR) Not detected, Coronavirus 229E (PCR) Not detected, SARS-CoV-2 (PCR) Not detected, Coronavirus NL63 (PCR) Not detected, Human Metapneumovir PCR Not detected, Influenza A (H1) PCR Not detected, Influ A (H1N1/09) PCR Not detected, Influenza A (H3) PCR Not detected, Influenza Type A (PCR) Not detected, Influenza Type B (PCR) Not detected, M. pneumoniae (PCR) Not detected, Parainfluenza 1 (PCR) Not detected, Parainfluenza 2 (PCR) Not detected, Parainfluenza 3 (PCR) Not detected, Parainfluenza 4 (PCR) Not detected, RSV (PCR) Not detected, Entero/Rhino (PCR) Detected A 11/12/24 04:41: WBC 12.3 H, RBC 3.76 L, Hgb 11.8 L, Hct 36.1 L, MCV 96.0 H, MCH 31.4 H, MCHC 32.7, RDW 15.2, Plt Count 200, MPV 9.0, Neut % (Auto) 77.4, Lymph % (Auto) 11.5, [place] % (Auto) 6.0, Eos % (Auto) 4.2, Baso % (Auto) 0.2, Neut # (Auto) 9.5 H, Lymph # (Auto) 1.4, [place] # (Auto) 0.7, Eos # (Auto) 0.5 H, Baso # (Auto) 0.0, Sodium 139, Potassium 3.6, Chloride 108 H, Carbon Dioxide 24, Anion Gap 10.6, BUN 17, Creatinine 1.50 H, Estimated Creat Clear 40, Estimated GFR 45 L, Est GFR ( Amer) 54 L, Glucose 129 H D, Lactate 2.0, Calcium 8.1 L, C-Reactive Protein 62.6 H D, Procalcitonin 0.248 11/12/24 09:13: Specimen Source L radial, O2 % 4lpm, ABG pH 7.57 H*, ABG pCO2 22.4 L, ABG pO2 58.2 L, ABG HCO3 20.0 L, ABG Total CO2 20.7 L, ABG O2 Saturation 94, ABG Base Excess -2.1, Hair Test Acceptable Medical History: Medical History (Updated 11/12/24 @ 12:43 by Girish Campo MD) Acute respiratory failure with hypoxia Tinnitus of right ear Sensorineural hearing loss (SNHL) of both ears Hearing loss Tinnitus Restrictive lung disease History of 2019 novel coronavirus disease (COVID-19) Asthma-COPD overlap syndrome Abnormal PFT Moderate persistent asthma ILD (interstitial lung disease) Centrilobular emphysema Dyspnea on exertion LAURA on CPAP Bradycardia Assessment and Plan Assessment and plan all Dx Assessment and Plan for all problems:: Pharmacokinetic dosing service Objective: Patient: Floor: Age: 84 yo Serum creatinine: 1.5 mg/dL Height: 72.0 Inches Weight (kg): 76.4 Assessment: IBW (kg): 77.60 Dosing wt(kg): 76.4 Estimated Creatinine clearance (ml/min): 41.0 CRCL method: Cockcroft and Gault using ibw(default). Drug selected: Vancomycin Loading dose (mg): 0 Vd (liters): 61.1 (factor used: 0.8 L/kg) Jak (hr-1): 0.038 Half life (hrs): 18.24 Recommended dose: 1250 mg Interval: 24 hrs Infusion time (hrs): 2.0 Predicted peak (mcg/mL): 32.9 Predicted trough (mcg/mL): 14.26 Total body weight is being used for vancomycin dosing. Recommendations: Give Vancomycin 1250 mg q 24 hrs with an expected Cpeak of 32.9 mcg/ml and an expected Ctrough of 14.26 mcg/ml ----Vanco only - ignore for aminoglycosides----- CLvanco= 2.32 L/hr AUC 0-24 /MARY ANNE Data: MARY ANNE 0.5 mcg/mL: AUC/MARY ANNE: 1077.6 MARY ANNE 1.0 mcg/mL: AUC/MARY ANNE: 538.8 --------- MARY ANNE 1.5 mcg/mL: AUC/MARY ANNE: 359.2 MARY ANNE 2.0 mcg/mL: AUC/MARY ANNE: 269.4
[2024-11-12] MEDS: CEFEPIME HCL 2 GM in 0.9 % SODIUM CHLORIDE 100 ML IV (13:43)
[2024-11-12] MEDS: BUDESONIDE 0.5MG/2ML NEB 0.5 MG IH ×2 (13:52→18:19)
[2024-11-12] MEDS: VANCOMYCIN/WATER FOR INJ (PEG) 1.25 GM/250 ML PIGGYBACK IV (14:42)
--- OUTSIDE RECORDS SUMMARY | 2024-11-12 16:13 | XMS_ITS | Encounter Summary ---
Author Organization Healthcare Address [address] [place] [address] Care Team Providers Care Grad Intern Name Role Phone Tomy Witt MD Primary Care Provider + [phone] Ravinder Wren DO Primary Care Provider [phone] Hattie Dorman Primary Care Provider [phone] Reason for Visit * Reason Comments Med Refill Encounter Details Date Type Department Care Team (Late st Contact Info) Description 10/15/2022 Refill [facility] [place] [facility] [address] [facility] [place] [address] Annalisa Collier APRN [address] [place] [address] Social History Tobacco Use Types Packs/Day Years [...] Description 11/30/2024 11:20 AM EDT Office Visit [facility] [address] [place] [address] Rajesh Fisher MD [address] [place] [address] 06/17/2025 11:40 AM EDT Office Visit [facility] [place] [facility] [address] [place] [address] Cal Florentino MD [address] [place] [address] documented as of this encounter Visit Diagnoses Not on filedocumented in this encounter Additional Health Concerns Assessment Noted Time A fall risk assessment has been complete d for the patient 09/27/2022 11:06 AM EDT documented as of this encounter Care Teams Grad Intern Relationship Specialty Start Date End Date Tomy Witt MD [address] [place] [address] PCP - General 07/01/20 03/27/23 Ravinder Wren DO [address] [place], [place] [id number] PCP - General 03/28/23 11/06/23 Hattie Dorman PA [address] [facility] [place] [address] PCP - General 11/07/23 documented as of this encounter
--- OUTSIDE RECORDS SUMMARY | 2024-11-12 16:13 | XMS_ITS | Clinical Summary ---
Author Organization [facility] Address [address] [place] [address] Care Team Providers Care Puff Ironer Name Role Phone Hattie Dorman Primary Care Provider [phone] Allergies Active Allergy Reactions Criticality Noted Date [...] were discontinued or adjusted by cardiology team, (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 [place] [address] Annalisa Collier APRN 09/17/2024 11:20 AM EDT Office Visit [facility] 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 [place] [address] Cal Florentino MD [address] [place] [address] Health Maintenance Due Date Last Done [...] - PPSV23, PCV20, or PCV21) 11/05/2018 09/10/2018 [id number] Vaccine ( season) 2024 11/21/2023, 12/28/2021, 01/27/2021, [...] this topic Medical Devices Implanted Type Area Numerical Control Lathe Operator Device Identifier Shelf Expiration Date Model / Serial / Lot Glaucoma Valve Ahmed Adult - [id number] - [id number] Implanted:Qty : 1 on 09/18/2022 by Mau Guy MD at [facility] Eye Implant Right: Eye [facility]-[id number] 08/01/2024 7 / [id number] / [id number] Tissue Sclera - [id number] - [id number] Implanted:Qty : 1 on 09/18/2022 by Mau Guy MD at [facility] Eye Implant Right: Eye [id number] 09/26/2022 SCLERA TISSUE / [id number] Glaucoma Valve Ahmed Adult - [id number] Implanted:02/2022 by Rajesh Fisher MD at [facility] (Quantity not on file) [facility]-[id number] / / Procedures Procedure Name Priority Date/Time Associated Diagnosis Comments BASIC METABOLIC PANEL, PLASMA Routine 09/17/2024 11:50 AM EDT Diastolic dysfunction Dyspnea on exertion N-TERMINAL PROBNP, PLASMA Routine 09/17/2024 11:50 AM EDT Diastolic dysfunction Dyspnea on exertion from Last 3 Months Results * N-Terminal Probnp, Plasma (09/17/2024 11:50 AM EDT) N-Terminal, PROBNP, Plasma 278 0 - 1,799 pg/mL 09/17/2024 12:35 PM EDT [facility] Blood Venous blood specimen / Unknown Venipuncture / Unknown 09/17/2024 11:50 AM EDT 09/17/2024 12:03 PM EDT Annalisa Collier [facility] BLOOD ORDERABLES Final R esult [facility] [address] [place] [address] * (ABNORMAL) Basic metabolic panel (09/17/2024 11:50 AM EDT) Glucose, Plasma 89 74 - 99 mg/dL 09/17/2024 12:35 PM EDT [facility] BUN, Plasma 23 8 - 23 mg/dL 09/17/2024 12:35 PM EDT [facility] Creatinine, Plasma 2.08(H) 0.70 - 1.20 mg/dL 09/17/2024 12:35 PM EDT [facility] BUN/Creatinine Ratio 11 09/17/2024 12:35 PM EDT [facility] Sodium, Plasma 134(L) 136 - 145 mmol/L 09/17/2024 12:35 PM EDT [facility] Potassium, Plasma 4.6 3.6 - 4.9 mmol/L 09/17/2024 12:35 PM EDT [facility] Chloride, Plasma 102 97 - 107 mmol/L 09/17/2024 12:35 PM EDT [facility] CO2, Plasma 24 22 - 29 mmol/L 09/17/2024 12:35 PM EDT [facility] Anion Gap 8 6 - 16 mmol/L 09/17/2024 12:35 PM EDT [facility] Total Calcium, Plasma 8.9 8.9 - 10.2 mg/dL 09/17/2024 12:35 PM EDT [facility] eGFRcr 31.2 mL/min/1.7 3m*2 09/17/2024 12:35 PM EDT [facility] Comment:Reported eGFRcr in m L/min/1.73m2 is based the CKD-EPI 2020 equation that does not use a race coefficient. Blood Venous blood specimen / Unknown Venipuncture / Unknown 09/17/2024 11:50 AM EDT 09/17/2024 12:03 PM EDT Annalisa Collier [facility] [employer] LAB BLOOD ORDERABLES Final R esult Performing Organization Address City/State/[facility] Co de Phone Number [facility] [address] [place] [address] from Last 3 Months [place] [address] GENERIC COMMERCIAL Care Teams Puff Ironer Relationship Specialty Start Date End Date Hattie Dorman PA [address] [place] [address] PCP - General 11/07/23
--- OUTSIDE RECORDS SUMMARY | 2024-11-12 16:13 | XMS_ITS | Encounter Summary ---
Author Organization [facility] Address [address] [facility] [place] [address] Care Team Providers Care Photo Checker And Assembler Name Role Phone Hattie Dorman Primary Care Provider [phone] Encounter Details Date Type Department Care Team [...] Description 11/30/2024 11:20 AM EDT Office Visit [facility] [address] [place] [address] Rajesh Fisher MD [address] [place] [address] 06/17/2025 11:40 AM EDT Office Visit [facility] [place] [address] [place] [address] Cal Florentino MD [address] [place] [address] documented as of this encounter Visit Diagnoses Not on filedocumented in this encounter Additional Health Concerns Assessment Noted Time A fall risk assessment has been complete d for the patient 09/17/2024 11:32 AM EDT A Body Mass Index follow-up plan has been documented for the patient 10/09/2024 10:06 AM EDT documented as of this encounter Care Teams Photo Checker And Assembler Relationship Specialty Start Date End Date Hattie Dorman PA [address] [place] [address] PCP - General 11/07/23 documented as of this encounter
--- OUTSIDE RECORDS SUMMARY | 2024-11-12 16:14 | XMS_ITS | Encounter Summary ---
Author Organization [facility] Address [address] [place] [address] Care Team Providers Care Lab Scientist Name Role Phone Hattie Dorman Primary Care Provider [phone] Reason for Visit * Reason Comments Med Refill Encounter Details Date Type Department Care Team (Late st Contact Info) Description 09/21/2024 Refill [facility] [place] [facility] [address] [facility] [place] [address] Annalisa Collier APRN [address] [place] [address] Social History Tobacco Use Types Packs/Day Years [...] Description 11/30/2024 11:20 AM EDT Office Visit [facility] [address] [place] [address] Rajesh Fisher MD [address] [place] [address] 06/17/2025 11:40 AM EDT Office Visit [facility] [place] [address] [place] [address] Cal Florentino MD [address] [place] [address] documented as of this encounter Visit Diagnoses Not on filedocumented in this encounter Additional Health Concerns Assessment Noted Time A fall risk assessment has been complete d for the patient 09/17/2024 11:32 AM EDT A Body Mass Index follow-up plan has been documented for the patient 09/17/2024 11:57 AM EDT documented as of this encounter Care Teams Lab Scientist Relationship Specialty Start Date End Date Hattie Dorman PA [address] [place] [address] PCP - General 11/07/23 documented as of this encounter
--- OUTSIDE RECORDS SUMMARY | 2024-11-12 16:14 | XMS_ITS | Clinical Summary ---
Author Organization [facility] ([place], [place], [place], [place]) Address [address] [place] [address] Care Team Providers Care Captain Assistant Name Role Phone Tomy Witt MD Primary Care Provider + [phone] Allergies Active Allergy Reactions Criticality Noted Date [...] 07/19/2014 Cervical myelopathy 06/15/2014 Neuropathy 05/03/2014 Immunizations Immunization Administration Dates Next Due Pneumococcal Conjugate (Prevnar) 13-Valent 09/10 Family History Medical History Relation Name Comments Heart disease Other Relation Name Status Comments Other Social History Tobacco Use Types Packs/Day Years Used Date Smoking Tobacco: Never Smokeless Tobacco: Never Alcohol Use Standard Drinks/Week Comments Never 0 (1 standard drink = 0.6 oz pur e alcohol) Food Insecurity Answer Date Recorded Food run [...] Date Renan rded Speak language other than Bahraini at home Not on file 03/08/2023 Want help with school or training Not on file 03/08/2023 Substance Use Answer Date Recorded Used [...] Pneumococcal 50+ years (2 of 2 - PPSV23, PCV20, or PCV21) 11/05/2018 09/10/2018 Tobacco Cessation Counseling and Screening (12+) 01/09/2023 01/09/2022 Falls Risk Screening 02/19/2024 COVID-19 VACCINE ( season) 2024 01/27/2021, 04/01/2020, 03/02/2020 Influenza Vaccine (#1) 2024 01/10/2021 Insurance [place] [id number] MEDICARE PART A B Care Teams Captain Assistant Relationship Specialty Start Date End Date Tomy Witt MD [address] [place] [address] [place] [address] PCP - General Family Medicine 01/09/22
--- OUTSIDE RECORDS SUMMARY | 2024-11-12 16:14 | XMS_ITS | Referral Summary ---
Author Organization [facility] ([place], [place], [place], [place]) Address [address] [place] [address] Care Team Providers Care Leadership Coach Name Role Phone Tomy Witt MD Primary Care Provider + [phone] Allergies Active Allergy Reactions Criticality Noted Date [...] Date Renan rded Speak language other than Gabonese at home Not on file 03/08/2023 Want [...] on file Insurance MEDICARE [place] [place] [address] Care Teams Leadership Coach Relationship Specialty Start Date End Date Tomy Witt MD [address] [place] [address] PCP - General Family Medicine 01/09/22
--- OUTSIDE RECORDS SUMMARY | 2024-11-12 16:14 | XMS_ITS ---
Laboratory report Created on: November 04, 2024 OMERO PROCTOR : 1940 Sex: Male Author Name MARCO A PFEIFFER Organization Unknown PROBLEMS Problems List Code Description I95.9 G40.909 E53.8 RESULTS Laboratory Orders Date Order Code Test 2024-10-30 [id number] LAMOTRIGINE (TINSLEY ICTAL), SERUM 2024-10-30 [id number] CBC WITH DIFFERE NTIAL/PLATELET 2024-10-30 [id number] COMP. METABOLIC PANEL (14) 2024-10-30 [id number] VITAMIN B12 AND FOLATE 2024-10-30 [id number] TSH Laboratory Results Date LOINC Test Value Unit Reference Range Interpre tation 2024-10-30 6948-4 LAMOTRIGINE, SERUM 10.5 UG/ML 2.0-20.0 2024-10-30 6690-2 WBC 7.4 X10E3/UL 3.4-10.8 2024-10-30 789-8 RBC 4.31 X10E6/UL 4.14-5.80 2024-10-30 718-7 HEMOGLOBIN 13.4 G/DL 13.0-17.7 2024-10-30 4544-3 HEMATOCRIT 41.4 % 37.5-51.0 2024-10-30 787-2 MCV 96 FL 79-97 2024-10-30 785-6 MCH 31.1 PG 26.6-33.0 2024-10-30 786-4 MCHC 32.4 G/DL 31.5-35.7 2024-10-30 788-0 RDW 13 % 11.6-15.4 2024-10-30 777-3 PLATELETS 283 X10E3/UL 443-855 6887-09-12 770-8 NEUTROPHILS 63 % 2024-10-30 736-9 LYMPHS 19 % 2024-10-30 5905-5 MONOCYTES 7 % 2024-10-30 713-8 EOS 8 % 2024-10-30 706-2 BASOS 1 % 2024-10-30 751-8 NEUTROPHILS (ABSOLUTE) 4.7 X10E3/UL 1.4-7.0 2024-10-30 731-0 LYMPHS (ABSOLUTE) 1.4 X10E3/UL 0.7-3.1 2024-10-30 742-7 MONOCYTES(ABSOLUTE) .5 X10E3/UL 0.1-0.9 2024-10-30 711-2 EOS (ABSOLUTE) .6 X10E3/UL 0.0-0.4 H 2024-10-30 704-7 BASO (ABSOLUTE) .1 X10E3/UL 0.0-0.2 2024-10-30 58921-3 IMMATURE GRANULOCYTES 2 % 2024-10-30 71039-2 IMMATURE GRANS (ABS) .1 X10E3/UL 0.0-0.1 2024-10-30 2345-7 GLUCOSE 88 MG/DL 70-99 2024-10-30 3094-0 BUN 16 MG/DL 8-27 2024-10-30 2160-0 CREATININE 2.12 MG/DL 0.76-1.27 H 2024-10-30 59890-6 EGFR 30 ML/MIN/1.73 >59 L 2024-10-30 3097-3 BUN/CREATININE RATIO 8 10-24 L 2024-10-30 2951-2 SODIUM 137 MMOL/L 287-304 6561-09-12 2823-3 POTASSIUM 4.1 MMOL/L 3.5-5.2 2024-10-30 2075-0 CHLORIDE 102 MMOL/L 96-106 2024-10-30 2028-9 CARBON DIOXIDE, TOTAL 20 MMOL/L 20-29 2024-10-30 80553-2 CALCIUM 8.7 MG/DL 8.6-10.2 2024-10-30 2885-2 PROTEIN, TOTAL 6.8 G/DL 6.0-8.5 2024-10-30 1751-7 ALBUMIN 3.5 G/DL 3.7-4.7 L 2024-10-30 14799-2 GLOBULIN, TOTAL 3.3 G/DL 1.5-4.5 2024-10-30 1975-2 BILIRUBIN, TOTAL .5 MG/DL 0.0-1.2 2024-10-30 6768-6 ALKALINE PHOSPHATASE 141 IU/L 44-121 H 2024-10-30 1920-8 AST (SGOT) 21 IU/L 0-40 2024-10-30 1742-6 ALT (SGPT) 18 IU/L 0-44 2024-10-30 2132-9 VITAMIN B12 >2000 PG/ML 232-1245 H 2024-10-304-8 FOLATE (FOLIC ACID), SERUM 3 NG/ML >3.0 L 2024-10-30 38529-1 TSH 2.42 UIU/ML 0.450-4.500
--- OUTSIDE RECORDS SUMMARY | 2024-11-12 16:14 | XMS_ITS | Encounter Summary ---
Author Organization [facility] Address [address] [place] [address] Care Team Providers Care Budget Specialist Name Role Phone Hattie Dorman Primary Care Provider [phone] Encounter Details Date Type Department Care Team [...] 11/30/2024 11:20 AM EDT Office Visit [facility] [address] [place] [address] Rajesh Fisher MD [address] [address] 06/17/2025 11:40 AM EDT Office Visit [facility] [place] [address] [facility] [place] [address] Cal Florentino MD [address] [place] [address] documented as of this encounter Visit Diagnoses Not on filedocumented in this encounter Additional Health Concerns Assessment Noted Time A fall risk assessment has been complete d for the patient 09/17/2024 11:32 AM EDT A Body Mass Index follow-up plan has been documented for the patient 09/17/2024 11:57 AM EDT documented as of this encounter Care Teams Budget Specialist Relationship Specialty Start Date End Date Hattie Dorman PA [address] [place] [address] PCP - General 11/07/23 documented as of this encounter
--- NOTE | 2024-11-12 17:28 | EXP.PN ---
Subjective *Date: 11/12/24 *Time: 17:28 Interval history: Patient continues to be pleasant, optimistic. Intermittently endorses increased work of breathing. Requiring 6 L nasal cannula. Broaden IV antibiotics to cefepime, vancomycin. Follow-up cultures. Exam Data for Last 24 hours Vital signs and Labs for Last 24 Hours: Temp Pulse Resp BP Pulse Ox O2 Del Method O2 Flow Rate 98.8 F 110 H 16 118/67 92 L Nasal Cannula 6 11/12/24 16:00 11/12/24 16:31 11/12/24 16:00 11/12/24 16:00 11/12/24 16:00 11/12/24 16:00 11/12/24 16:00 Laboratory Results - last 24 hr 11/11/24 23:30: WBC 12.7 H D, RBC 4.11 L, Hgb 12.7 L D, Hct 38.3 L, MCV 93.2, MCH 30.9, MCHC 33.2, RDW 15.0, Plt Count 234, MPV 8.7, Neut % (Auto) 78.5, Lymph % (Auto) 9.4 L, [place] % (Auto) 6.9, Eos % (Auto) 3.8, Baso % (Auto) 0.3, Neut # (Auto) 10.0 H, Lymph # (Auto) 1.2, [place] # (Auto) 0.9, Eos # (Auto) 0.5 H, Baso # (Auto) 0.0, D-Dimer 0.76 H, VBG pH 7.56 H, VBG pCO2 23.5 L, VBG pO2 40.9 H, VBG HCO3 20.5 L, VBG Total CO2 21.2 L, VBG O2 Saturation 84.4 H, VBG Base Excess -1.7, VBG Lactic Acid 3.1 H, Sodium 138, Potassium 3.8, Chloride 106, Carbon Dioxide 22, Anion Gap 13.8, BUN 18, Creatinine 1.70 H, Estimated Creat Clear 34, Estimated GFR 39 L, Est GFR ( Amer) 47 L, Glucose 106 H, Calcium 8.7, Magnesium 2.2, Total Bilirubin 0.7, AST 44 D, ALT 32 D, Alkaline Phosphatase 119, Troponin I 0.34 H, NT-Pro-B Natriuret Pep 525 H, Total Protein 6.8, Albumin 3.7, Globulin 3.1, Albumin/Globulin Ratio 1.2 11/11/24 23:37: Chlamy pneumoniae PCR Not detected, Adenovirus (PCR) Not detected, B. pertussis DNA (PCR) Not detected, Coronavirus OC43 (PCR) Not detected, Coronavirus HKU1 (PCR) Not detected, Coronavirus 229E (PCR) Not detected, SARS-CoV-2 (PCR) Not detected, Coronavirus NL63 (PCR) Not detected, Human Metapneumovir PCR Not detected, Influenza A (H1) PCR Not detected, Influ A (H1N1/09) PCR Not detected, Influenza A (H3) PCR Not detected, Influenza Type A (PCR) Not detected, Influenza Type B (PCR) Not detected, M. pneumoniae (PCR) Not detected, Parainfluenza 1 (PCR) Not detected, Parainfluenza 2 (PCR) Not detected, Parainfluenza 3 (PCR) Not detected, Parainfluenza 4 (PCR) Not detected, RSV (PCR) Not detected, Entero/Rhino (PCR) Detected A 11/12/24 04:41: WBC 12.3 H, RBC 3.76 L, Hgb 11.8 L, Hct 36.1 L, MCV 96.0 H, MCH 31.4 H, MCHC 32.7, RDW 15.2, Plt Count 200, MPV 9.0, Neut % (Auto) 77.4, Lymph % (Auto) 11.5, [place] % (Auto) 6.0, Eos % (Auto) 4.2, Baso % (Auto) 0.2, Neut # (Auto) 9.5 H, Lymph # (Auto) 1.4, [place] # (Auto) 0.7, Eos # (Auto) 0.5 H, Baso # (Auto) 0.0, Sodium 139, Potassium 3.6, Chloride 108 H, Carbon Dioxide 24, Anion Gap 10.6, BUN 17, Creatinine 1.50 H, Estimated Creat Clear 40, Estimated GFR 45 L, Est GFR ( Amer) 54 L, Glucose 129 H D, Lactate 2.0, Calcium 8.1 L, C-Reactive Protein 62.6 H D, Procalcitonin 0.248 11/12/24 09:13: Specimen Source L radial, O2 % 4lpm, ABG pH 7.57 H*, ABG pCO2 22.4 L, ABG pO2 58.2 L, ABG HCO3 20.0 L, ABG Total CO2 20.7 L, ABG O2 Saturation 94, ABG Base Excess -2.1, Hair Test Acceptable I & O for Last 24 hours: Intake & Output 11/09/24 11/10/24 11/11/24 11/12/24 23:59 23:59 23:59 23:59 Intake Total 700 / 700 Output Total 425 / 425 Balance 275 / 275 Weight 72.575 kg 76.402 kg Constitutional Constitutional: mild distress *Routine HEENT Exam Head: Present normocephalic Eye: Present EOMI and PERRL ENT: Present mucous membranes moist *Routine Neck Exam Neck: Present supple; Absent lymphadenopathy *Routine Respiratory Exam Respiratory: Present CTA bilaterally *Routine Cardiovascular Exam Cardiovascular: Present RRR *Routine Abdominal Exam Abdominal: Present soft and normoactive bowel sounds; Absent tenderness *Routine Extremities Exam Extremities: Absent cyanosis, clubbing or edema *Routine Skin Exam Skin: Present warm; Absent rash *Routine Neurological Exam Neurological: Present alert and oriented X3 Assessment and Plan *Assessment and plan (1) Acute respiratory failure with hypoxia: Status: Acute Category: Medical Code(s): J96.01 - Acute respiratory failure with hypoxia (2) Respiratory failure with hypoxia: Status: Acute Qualifiers: Chronicity: acute Qualified Code(s): J96.01 - Acute respiratory failure with hypoxia Category: Medical Code(s): J96.91 - Respiratory failure, unspecified with hypoxia (3) Asthma: Status: Acute Category: Medical Code(s): J45.909 - Unspecified asthma, uncomplicated (4) Pneumonia: Status: Acute Qualifiers: Laterality: left Lung location: lower lobe of lung Pneumonia type: due to unspecified organism Qualified Code(s): J18.9 - Pneumonia, unspecified organism Category: Medical Code(s): J18.9 - Pneumonia, unspecified organism Plan Kalia Magdaleno is a 84-year-old male with medical history significant for CAD with 8 stents (follows with [facility] [place]), asthma on room air, anxiety/depression, complex partial seizures, dementia who unfortunately presented back to the ED shortly after discharge with shortness of breath. He was discharged in stable condition for treatment of aspiration pneumonia, on room air without respiratory distress and did well at home for a few hours but began feeling short of breath, found to be hypoxic in the ED. Respiratory panel positive for rhinovirus. #Sepsis #Acute hypoxic respiratory failure #Aspiration pneumonia, Klebsiella pneumonia #Rhinovirus viral pneumonia #Hemoptysis #Asthma ? Unfortunately failed outpatient treatment, return to the ED with shortness of breath and worsening opacities on CXR. This time, positive for rhinovirus. Discharged with levofloxacin. ? Sputum culture from previous admission growing Klebsiella pneumonia essentially pansensitive, suspicious for aspiration. Patient denies going home and eating a meal or drinking. Speech therapy evaluated on previous admission, recommended mechanical soft with thin liquids. Planned for outpatient modified barium swallow study. ? Initial WBC 12.7, CRP 62.6. CXR revealed mixed interstitial opacities consistent with pneumonia, likely atypical/viral. ? Meets sepsis criteria this afternoon with tachycardia, leukocytosis. ? Obtain CTA on 11/12/2024, revealed new ground glass opacities, increased lymphadenopathy but no pulmonary embolism. ? Today, patient has had waxing and waning in respiratory distress. Initially required 3 to 4 L nasal cannula, bumped to 6 L due to desaturations. Intermittently stating he was having trouble breathing, though was having appropriate saturations and lung exam unremarkable. ABG reassuring. Patient's asthma complicates care. ? Additionally, patient has had 2 episodes of hemoptysis since yesterday. Hemoglobin stable at 11.8. ? Pulmonology consulted, agreed with broadening antibiotics and will follow-up on repeat sputum, blood cultures. ? Started IV cefepime 2 g every 12 hours, vancomycin pharmacy to dose. ? Continue DuoNebs every 6 hours, Pulmicort twice daily. ? Currently requiring 6 L nasal cannula, wean as tolerated. Baseline room air. ? Follow-up repeat sputum, blood cultures. #History of CAD with stents #Hypertension ? Extensive coronary disease, and 8 stents in the past. Follows with [facility] [place]. ? ECHO 11/10/2024 with normal biventricular systolic function. BNP 742, no signs of volume overload. ? Cardiology consulted, s/p PCI with nonocclusive coronary arteries. ? Continue home aspirin, statin. ? Entresto held due to soft pressures during admission. #Anxiety/depression ? Continue home desvenlafaxine, buspirone, trazodone. #Complex partial seizures ? Continue home lamotrigine 150 mg twice daily. #Dementia ? Continue home memantine. Total time spent on discharge: 32 minutes on chart review, counseling, documentation, and direct care with patient.
--- NOTE | 2024-11-12 20:12 | ECG_ITS ---
APPROVED REPORT Exam: Resting ECG HR:123 bpm ECG Measurements Heart Rate 123 AXES VA 169 P 79 QRSd 95 QRS 265 QT 346 T 51 QTc 419 Conclusion SINUS TACHYCARDIA WITH FREQUENT ECTOPIC PREMATURE COMPLEXES POSSIBLE RIGHT VENTRICULAR HYPERTROPHY [SOME/ALL OF: PROMINENT R IN V1, LATE TRANSITION, RAD, JOSE DE JESUS, SSS] ABNORMAL ECG UNCONFIRMED REPORT Electronically signed by : Ferdinand Steven MD 11/13/2024 08:40:24
--- NOTE | 2024-11-12 20:19 | PC.NURSE ---
patient is alert and oriented x4. upon assessment, patient was on 2L nasal cannula, the patients respiratory effort was labored and c/o shortness of breath, patient O2 increased to 4L, patient instructed to breath in through the nose and out through the mouth, O2 sats 92-95% on 4L. New 20 gauge IV started in the RFA, saline locked. LAC IV removed due to previous infiltration. 1200: Patient began to desat, increased patients O2 to 6L NC, O2 sat 93%, patient c/o of 5/10 left chest pain, STAT EKG ordered, MD notified. Modified swallow study r/s for tomorrow due to new O2 requirement and c/o chest pain. 1300: patient respiratory effort appeared nonlabored at this time and pt stated that he was beginning to feel better. Abx infusing. 1500: patient respiratory effort appeared labored again, pt has have several coughing episodes that produced bloody sputum. specimen collected and sent to the lab. MRSA PCR swab sent to lab. notified of bloody sputum and increased work of breathing. Additional orders received.
--- NOTE | 2024-11-12 20:44 | PC.NURSE ---
CPAP was placed on patient during shift change by RT. Roughly 1950 patient wanted CPAP off - this RN educated patient of the risk and benefits when removing the CPAP and his new oxygen requirements. Patient was very upset and anxious, tachy 140's, CPAP was immediately removed and placed patient on 6L NC - once on the 6L NC patient remain between 84%-86%. Patient called to come to hospital. This RN offered the patient a Valium to help decrease his anxiety and he refused and said he wasn't doing anything til his was here. RT was notified of situation and they came to bedside. Dennys Cyrist was notified and requested an EKG, Vapotherm, and transfer to Step-Down. House notified. Patient was transferred to room 266 and this RN gave face to face report to CHRISTINE Alejandre.
[2024-11-12] MEDS: SACUBITRIL/VALSARTAN 24-26MG TABLET 1 EACH PO (21:26)
[2024-11-12] MEDS: MEMANTINE 10MG TABLET 10 MG PO (21:26)
[2024-11-12] MEDS: MONTELUKAST SODIUM 10MG TAB 10 MG PO (21:26)
[2024-11-12] MEDS: ATORVASTATIN 40MG TABLET 40 MG PO (21:28)
[2024-11-12] MEDS: GABAPENTIN 300MG CAPSULE 300 MG PO (21:28)
[2024-11-12 21:29] LABS: VBG HCO3 18.4 mmol/L (23-30); VBG PCO2 28.6 mmol/L (35-51); VBG PH 7.43 mmol/L (7.31-7.41); VBG PO2 50.6 mmol/L (28-40)
[2024-11-12 21:30] LABS: Lactate Venous 2.4 mmol/L (0.4-2.0)
[2024-11-12] MEDS: TRAZODONE 50 MG 100 MG PO (21:33)
[2024-11-12] MEDS: BRIMONIDINE 0.2% 1 EACH EYE-BOTH (21:50)
[2024-11-12] MEDS: LATANOPROST 0.005% OPTH SOLN 2.5ML OP (21:50)
[2024-11-12] MEDS: BUSPIRONE HCL 5 MG TABLET PO (22:27)
[2024-11-13] VITALS (38 sets, daily range): BP systolic 78–126; BP diastolic 35–60; PULSE 79–116; RESP 16–28; TEMP 36.7–37.3; O2SAT 82–98; BMI 23.1
[2024-11-13] MEDS: CEFEPIME HCL 2 GM in 0.9 % SODIUM CHLORIDE 100 ML IV ×2 (00:03→11:27)
[2024-11-13 00:14] LABS: MRSA DNA PCR Negative (Negative)
[2024-11-13 01:31] LABS: Reflex Lactic Add Lactic Reflex
[2024-11-13] MEDS: LACTATED RINGERS 1000ML 250 ML 999 ML IV (01:57)
--- NOTE | 2024-11-13 02:15 | PC.NURSE ---
Pt was hypotensive for approximately 1.5hrs with BP taking q15 min. Pt was asymptomatic. Two manual BPs were taken approximately 30 min apart with the first one being 100/70 and the second being 84/62. Lucas Cyr was contacted and he said to give 250 mL of LR at 999 and repeat two hours later.
[2024-11-13 03:11] LABS: Lactic Acid Follow Up (RFLX 1) 1.8 mmol/L (0.7-2.1)
[2024-11-13] MEDS: RINGERS SOLUTION,LACTATED 500 ML 999 ML IV ×2 (04:12→06:12)
[2024-11-13 05:49] LABS: Anion Gap 10.3 mEq/L (5-15); Blood Urea Nitrogen 20 mg/dl (9-20); Calcium 8.0 mg/dl (8.4-10.2); Carbon Dioxide 21 mmol/L (22.0-30.0); Chloride 106 mmol/L (98-107); Creatinine Clearance Estimated 33 mL/min (50-200); Creatinine,Serum 1.90 mg/dl (0.66-1.25); Estimated Glomerular Filt Rate 34 ml/min (>60); GFR (African American) 41 ML/MIN (>60); Glucose 80 mg/dl (74-100); Potassium 4.3 mmoL/L (3.5-5.1); Sodium 133 mmol/L (136-145)
[2024-11-13] MEDS: IPRATROPIUM/ALBUTEROL 3 ML NEB IH ×4 (05:53→23:11)
[2024-11-13] MEDS: BUDESONIDE 0.5MG/2ML NEB 0.5 MG IH ×2 (05:53→18:52)
[2024-11-13 05:54] LABS: C-Reactive Protein 243.9 mg/L (0-4)
[2024-11-13 06:11] LABS: Hematocrit 35.5 % (42.0-52.0); Hemoglobin 11.0 g/dL (14.1-18.0); Immature Granulocytes % 0.8 %; Mean Corpuscular HGB Conc 31.0 g/dL (31.8-35.4); Mean Corpuscular Hemoglobin 30.9 pg (27.0-31.2); Mean Corpuscular Volume 99.7 fl (80-94); Nucleated Red Blood Cells % 0 %; Platelet Count 190 K/mm3 (142-424); Red Blood Count 3.56 M/mm3 (4.60-6.20); Red Cell Distribution Width-SD 57.2 fL; White Blood Count 17.2 K/mm3 (4.8-10.8)
[2024-11-13 07:59] LABS: ABG HCO3 20.7 mmhg (22.0-26.0); ABG PCO2 29.6 mmhg (35.0-45.0); ABG PH 7.46 mmol/L (7.35-7.45); ABG PO2 55.2 mmhg (80-100); ABG TCO2 21.6 mmhg (23-27)
--- NOTE | 2024-11-13 08:21 | XR_ITS ---
FINAL REPORT CLINICAL HISTORY: Order per provider-- concern for aspiration COMPARISON: 11/11/2024 FINDINGS: A portable view of the chest was obtained. Cardiac and mediastinal silhouettes are within normal limits. There has been interval worsening of mixed interstitial and alveolar opacities in the left lung. New mixed interstitial and alveolar opacities are noted in the right lung base concerning for pneumonia. Aspiration is not excluded. There are likely small pleural effusions. There is no pneumothorax.. IMPRESSION: Findings concerning for pneumonia. Aspiration not excluded. Continued follow-up recommended. Reviewed, Interpreted and Dictated by Lucero Stuart MD Transcribed by Imelda Lopez Authenticated and . [facility] [place]
[2024-11-13] MEDS: CHOLECALCIFEROL 1,000 UNITS (25MCG) TABLET 25 MCG PO (08:54)
[2024-11-13] MEDS: MEMANTINE 10MG TABLET 10 MG PO ×2 (08:54→22:31)
[2024-11-13] MEDS: ASPIRIN EC 81MG TABLET 81 MG PO (08:54)
[2024-11-13] MEDS: BUSPIRONE HCL 5 MG TABLET PO ×2 (08:54→22:31)
[2024-11-13] MEDS: SACUBITRIL/VALSARTAN 24-26MG TABLET 1 EACH PO (08:54)
[2024-11-13] MEDS: BRIMONIDINE 0.2% OPHTH SOLN 5ML BOTTLE OP ×2 (08:56→22:31)
--- NOTE | 2024-11-13 10:28 | HMH.PTEV ---
Physical Therapy Evaluation Rehab PT IP Evaluation Start: 11/13/24 09:33 Freq: ONCE Status: Active Protocol: Document 11/13/24 10:11 TOSHIA (Rec: 11/13/24 10:27 TOSHIA [id number]) Subjective/History History History Per H&P: This is an 84-year-old male who has a past medical history significant for coronary artery disease with 8 stents (follows with the [facility] [place]/who recently underwent left heart cath and medical management was recommended), COPD, pulmonary hypertension, anxiety, depression, partial seizures, and dementia who presents with a chief complaint of shortness of breath and difficulty breathing with exertion. Patient was recently discharged from our facility due to community-acquired pneumonia and NSTEMI . Patient was discharged home with a follow-up appointment with pulmonology as an outpatient. Unfortunately, patient started to have progressive shortness of air and presented to the emergency room for evaluation. While in the emergency room, room air saturation was 85%. Patient has significant dyspnea while at rest; as a result, hospital medicine was called salted for further management. During my evaluation of the patient, patient states that 1 hour after he got home he attempted to get up and go to the restroom. He was able to go to and from the restroom with minor shortness of breath. On subsequent attempts to go to the restroom, patient had progressive dyspnea with exertion. His dyspnea progressed to shortness of air while at rest. He reports he did use his home nebulizer without any relief of his symptoms. Patient was not discharged home on any home oxygen. He reports no new symptomology only the progressive dyspnea with exertion . He is currently denying any chest pain, lightheadedness, dizziness, fever, chills, rigors, nausea, PND, orthopnea, or diarrhea. Chest x-ray shows moderate mixed interstitial airspace ossifications throughout the left lower lung compatible with pneumonia. Additional lab values obtained include a white blood cell count of 12.7, red blood cell count of 4.1 point, hematocrit 38.3,66 D-dimer of 0.76, creatinine 1.70, GFR of 39, blood glucose of 106, and troponin 0.34. Subjective Subjective Pt's family present in room and assisted with answering history questions. Pt reports he lives with his in a split-level home (~8 [address]). Pt's family reports his mobility is impaired at baseline. Pt and family deny pt falling in the past 30 days. Pt reports he uses a RW in home with some assistance and an electric w/c in community. Pt and family interested in rehab. [facility] How much help from another person do you currently need... Turning from your None back to your side while in a flat bed without using bedrails? Moving from lying on A little back to sitting on the side of a flat bed without using bedrails? Moving to and from a A little bed to a chair ( including a wheelchair)? Standing up from a A little chair using your arms? (e.g., wheelchair, bedside chair) Walking in hospital A lot room? Climbing 3-5 steps A lot with a railing? Mobility Score 17 Mobility Level [facility] 5 Stand (1 or more minutes) Mobility Calculator Rehab PT IP Eval Objective Appearance Patient Behavior Appropriate,Cooperative Patient Orientation Person,Place,Situation Difficulty following none instructions Speech Pattern Clear Ambulation Patient Able to No Ambulate Ambulation Observation IP General Gait Wide Based Gait Pattern Observation Ambulation Distance 2 (feet) Ambulation Ability Moderate x 1 (50% assist) Balance Ability to Arise Able, uses arms to help Sitting Balance Steady, safe Standing Balance Unsteady Dynamic Sitting Good Balance Ability Dynamic Standing Poor Balance Ability Transfers Bed Transfer Ability Minimal x 1 (25% assist) Sit to Stand Bed Moderate x 1 (50% assist) Transfer Ability Sit to Stand Chair Moderate x 1 (50% assist) Transfer Ability Rehab PT IP prob,goals,plan Problems Date of Evaluation: 11/13/24 PT IP Problems Bed Mobility,Transfers,Gait,Balance,Self care,Safety Rehab Potential Rehab Potential Good Plan PT Intervention Plan Bed Mobility,Transfers,Gait,Balance,Self care,Safety, Therapeutic Exercise Other Intervention 1-2 times Plan PT Plan Frequency Daily Duration LOS Discharge Goals Bed Transfer Ability Supervision/Stand by Sit to Stand Chair Minimal x 1 (25% assist) Transfer Ability Ambulation Assistive Rolling Walker Device Ambulation Distance 10 (feet) Discharge Plan PT Discharge Plan Initial physical therapy evaluation performed. Patient presents below baseline at this time in functional mobility, transfers, and strength. Pt not safe to return home at this time d/t current level of functional mobility. PT recommending inpatient rehabilitation facility (IRF) placement upon d/c from [facility]. Pt would benefit from skilled PT while at [facility] to prevent further functional decline and maximize safety with mobility. Eval Complexity Eval Charge Codes 92150 - Moderate Complexity PHYSICIAN CERTIFICATION: I certify the specified therapy services for Kalia Magdaleno are required, authorized, and reviewed every 30 days.
--- NOTE | 2024-11-13 11:29 | SW/DCPLANNER ---
Addendum entered by Conchis Colmenares 11/16/24 12:28: Updated patient information has been faxed to [facility]. Discharge date is unknown at this time. Addendum entered by Conchis Colmenares 11/13/24 13:21: per [facility] is tentatively offering a bed pending medical stability . CM will continue to follow up. Discharge date is unknown at this time. Original Note: I spoke w/ patient and his regarding plans once medically stable for discharge. PT evaluated patient and recommended SNF level of care at time of discharge. Patient is still requiring vapotherm at this time and discharge date is unknown. is agreeable for patient information to be faxed to [facility] while they spend time considering this option. Patient information has been faxed to [facility]. CM will continue to follow up.
[2024-11-13] MEDS: VANCOMYCIN/WATER FOR INJ (PEG) 1.25 GM/250 ML PIGGYBACK IV (12:01)
--- NOTE | 2024-11-13 13:31 | HMH.OTEV ---
OT Evaluation Rehab OT IP Evaluation Start: 11/13/24 09:33 Freq: ONCE Status: Active Protocol: Document 11/13/24 13:27 ABNER (Rec: 11/13/24 13:31 [id number] Rehab OT IP Assessment Subjective History Per H&P: This is an 84-year-old male who has a past medical history significant for coronary artery disease with 8 stents (follows with the [facility] [place]/who recently underwent left heart cath and medical management was recommended), COPD, pulmonary hypertension, anxiety, depression, partial seizures, and dementia who presents with a chief complaint of shortness of breath and difficulty breathing with exertion. Patient was recently discharged from our facility due to community-acquired pneumonia and NSTEMI . Patient was discharged home with a follow-up appointment with pulmonology as an outpatient. Unfortunately, patient started to have progressive shortness of air and presented to the emergency room for evaluation. While in the emergency room, room air saturation was 85%. Patient has significant dyspnea while at rest; as a result, hospital medicine was called salted for further management. During my evaluation of the patient, patient states that 1 hour after he got home he attempted to get up and go to the restroom. He was able to go to and from the restroom with minor shortness of breath. On subsequent attempts to go to the restroom, patient had progressive dyspnea with exertion. His dyspnea progressed to shortness of air while at rest. He reports he did use his home nebulizer without any relief of his symptoms. Patient was not discharged home on any home oxygen. He reports no new symptomology only the progressive dyspnea with exertion . He is currently denying any chest pain, lightheadedness, dizziness, fever, chills, rigors, nausea, PND, orthopnea, or diarrhea. Chest x-ray shows moderate mixed interstitial airspace ossifications throughout the left lower lung compatible with pneumonia. Additional lab values obtained include a white blood cell count of 12.7, red blood cell count of 4.1 point, hematocrit 38.3,66 D-dimer of 0.76, creatinine 1.70, GFR of 39, blood glucose of 106, and troponin 0.34. Subjective Pt very [place]. Pt's family present in room and assisted with answering history questions. Pt reports he lives with his in a split-level home (~8 [address]). Pt's family reports he has difficulty with functional transfers at baseline. Pt and family deny pt falling in the past 30 days. Pt reports he uses a RW in home with some assistance and an electric w/c in community. Family reports they do have to assist with ADLs, especially bathing due to safety. He is dependent upon family for completion of all IADLs. Pt and family interested in rehab Objective Patient Orientation Person,Birthday Right Upper Min Limitation <25% Extremity Gross ROM Left Upper Extremity Min Limitation <25% Gross ROM Shoulder ROM Muscle Weakness Limitations Elbow ROM Muscle Weakness Limitations Wrist Limitations of Muscle Weakness Range of Motion Transfer Training Sit/Stand Transfer Assist Level Minimal x 2 (25% assist) Chair Transfer Minimal x 2 (25% assist) Ability Rehab OT IP prob,goals,plan Problems Date of Evaluation: 11/13/24 OT IP Problems Bed Mobility,Transfers,Balance,Self care,Safety Rehab Potential Rehab Potential Good Equipment Needs Assistive Devices Rolling / Wheeled Walker Plan OT intervention Plan Bed Mobility,Transfers,Balance,Self care,Safety, Therapeutic Exercise OT Plan Frequency Daily Duration LOS Discharge Goals Bed Mobility Ability Assistance x1 Sit to Stand Chair Minimal x 1 (25% assist) Transfer Ability Chair Transfer Minimal x 1 (25% assist) Ability Chair Transfer Sit to/from Ambulatory Technique Chair Transfer Rolling Walker Assistive Devices Lower Body Dressing Moderate Assistance Ability Upper Body Dressing Minimal Assistance Ability Performing Toilet Moderate Assistance Hygiene Ability Overall Commode/ Minimal Assistance Toilet Transfer Ability Commode/Toilet Sit to/from Ambulatory Transfer Technique Discharge Plan OT Discharge Plan Pt will continue to be seen for OT services while at [facility]. At this time, pt would benefit most from short term rehab at SNF following discharge from hospital. Continued skilled therapy is important in order for patient to improve strength, safety, endurance, ADL independence, and functional transfers to reach PLOF. Eval Complexity Eval Charge Codes 76260 - Moderate Complexity PHYSICIAN CERTIFICATION: I certify the specified therapy services for Kalia Magdaleno are required, authorized, and reviewed every 30 days.
--- NOTE | 2024-11-13 13:39 | EXP.PULM.PN ---
Subjective *Date: 11/13/24 *Time: 13:39 Pulmonology Exam Inpatient Vital signs and Labs for Last 24 Hours: Temp Pulse Resp BP Pulse Ox O2 Del Method O2 Flow Rate 98.6 F 94 H 22 102/44 L 95 Vapotherm 40 11/13/24 12:00 11/13/24 12:00 11/13/24 12:00 11/13/24 12:00 11/13/24 12:00 11/13/24 13:15 11/13/24 13:15 FiO2 80 11/13/24 12:00 Laboratory Results - last 24 hr 11/12/24 11:50: MRSA (PCR) Negative 11/12/24 21:22: VBG pH 7.43 H, VBG pCO2 28.6 L, VBG pO2 50.6 H, VBG HCO3 18.4 L, VBG Total CO2 19.3 L, VBG O2 Saturation 87.7 H, VBG Base Excess -5.9 L, VBG Lactic Acid 2.4 H 11/13/24 02:37: Lactate 1.8 11/13/24 04:29: WBC 17.2 H D, RBC 3.56 L, Hgb 11.0 L, Hct 35.5 L, MCV 99.7 H, MCH 30.9, MCHC 31.0 L, RDW 15.6, Plt Count 190, MPV 9.3, Neut % (Auto) 85.3 H, Lymph % (Auto) 7.9 L, Sweet Grass % (Auto) 5.1, Eos % (Auto) 0.5, Baso % (Auto) 0.4, Neut # (Auto) 14.7 H, Lymph # (Auto) 1.4, Sweet Grass # (Auto) 0.9, Eos # (Auto) 0.1, Baso # (Auto) 0.1, Sodium 133 L, Potassium 4.3, Chloride 106, Carbon Dioxide 21 L, Anion Gap 10.3, BUN 20, Creatinine 1.90 H D, Estimated Creat Clear 33, Estimated GFR 34 L, Est GFR ( Amer) 41 L D, Glucose 80 D, Calcium 8.0 L, C-Reactive Protein 243.9 H 11/13/24 07:50: ABG pH 7.46 H, ABG pCO2 29.6 L, ABG pO2 55.2 L, ABG HCO3 20.7 L, ABG Total CO2 21.6 L, ABG O2 Saturation 89 L, ABG Base Excess -3.1 L Temp Pulse Resp BP Pulse Ox O2 Del Method O2 Flow Rate 97.5 F L 82 19 116/58 L 88 L Nasal Cannula 4.5 11/12/24 08:00 11/12/24 11:01 11/12/24 08:00 11/12/24 08:00 11/12/24 11:01 11/12/24 11:01 11/12/24 11:01 Laboratory Results - last 24 hr 11/11/24 23:30: WBC 12.7 H D, RBC 4.11 L, Hgb 12.7 L D, Hct 38.3 L, MCV 93.2, MCH 30.9, MCHC 33.2, RDW 15.0, Plt Count 234, MPV 8.7, Neut % (Auto) 78.5, Lymph % (Auto) 9.4 L, Sweet Grass % (Auto) 6.9, Eos % (Auto) 3.8, Baso % (Auto) 0.3, Neut # (Auto) 10.0 H, Lymph # (Auto) 1.2, Sweet [place] # (Auto) 0.9, Eos # (Auto) 0.5 H, Baso # (Auto) 0.0, D-Dimer 0.76 H, VBG pH 7.56 H, VBG pCO2 23.5 L, VBG pO2 40.9 H, VBG HCO3 20.5 L, VBG Total CO2 21.2 L, VBG O2 Saturation 84.4 H, VBG Base Excess -1.7, VBG Lactic Acid 3.1 H, Sodium 138, Potassium 3.8, Chloride 106, Carbon Dioxide 22, Anion Gap 13.8, BUN 18, Creatinine 1.70 H, Estimated Creat Clear 34, Estimated GFR 39 L, Est GFR ( Amer) 47 L, Glucose 106 H, Calcium 8.7, Magnesium 2.2, Total Bilirubin 0.7, AST 44 D, ALT 32 D, Alkaline Phosphatase 119, Troponin I 0.34 H, NT-Pro-B Natriuret Pep 525 H, Total Protein 6.8, Albumin 3.7, Globulin 3.1, Albumin/Globulin Ratio 1.2 11/11/24 23:37: Chlamy pneumoniae PCR Not detected, Adenovirus (PCR) Not detected, B. pertussis DNA (PCR) Not detected, Coronavirus OC43 (PCR) Not detected, Coronavirus HKU1 (PCR) Not detected, Coronavirus 229E (PCR) Not detected, SARS-CoV-2 (PCR) Not detected, Coronavirus NL63 (PCR) Not detected, Human Metapneumovir PCR Not detected, Influenza A (H1) PCR Not detected, Influ A (H1N1/09) PCR Not detected, Influenza A (H3) PCR Not detected, Influenza Type A (PCR) Not detected, Influenza Type B (PCR) Not detected, M. pneumoniae (PCR) Not detected, Parainfluenza 1 (PCR) Not detected, Parainfluenza 2 (PCR) Not detected, Parainfluenza 3 (PCR) Not detected, Parainfluenza 4 (PCR) Not detected, RSV (PCR) Not detected, Entero/Rhino (PCR) Detected A 11/12/24 04:41: WBC 12.3 H, RBC 3.76 L, Hgb 11.8 L, Hct 36.1 L, MCV 96.0 H, MCH 31.4 H, MCHC 32.7, RDW 15.2, Plt Count 200, MPV 9.0, Neut % (Auto) 77.4, Lymph % (Auto) 11.5, Sweet [place] % (Auto) 6.0, Eos % (Auto) 4.2, Baso % (Auto) 0.2, Neut # (Auto) 9.5 H, Lymph # (Auto) 1.4, Sweet [place] # (Auto) 0.7, Eos # (Auto) 0.5 H, Baso # (Auto) 0.0, Sodium 139, Potassium 3.6, Chloride 108 H, Carbon Dioxide 24, Anion Gap 10.6, BUN 17, Creatinine 1.50 H, Estimated Creat Clear 40, Estimated GFR 45 L, Est GFR ( Amer) 54 L, Glucose 129 H D, Lactate 2.0, Calcium 8.1 L, C-Reactive Protein 62.6 H D, Procalcitonin 0.248 11/12/24 09:13: Specimen Source L radial, O2 % 4lpm, ABG pH 7.57 H*, ABG pCO2 22.4 L, ABG pO2 58.2 L, ABG HCO3 20.0 L, ABG Total CO2 20.7 L, ABG O2 Saturation 94, ABG Base Excess -2.1, Hair Test Acceptable I & O for Labs for Last 24 Hours: Intake & Output 11/10/24 11/11/24 11/12/24 11/13/24 23:59 23:59 23:59 23:59 Intake Total 950 / 950 1432.85 / 1432.85 Output Total 525 / 625 300 / 300 Balance 425 / 325 1132.85 / 1132.85 Weight 160 lb 168 lb 7 oz 171 lb 1 oz Intake & Output 11/09/24 11/10/24 11/11/24 11/12/24 23:59 23:59 23:59 23:59 Intake Total 360 / 360 Balance 360 / 360 Weight 160 lb 168 lb 7 oz Microbiology Reports for the Last 24 Hours: Microbiology 11/11/24 23:27 Blood Blood Culture - Preliminary NO GROWTH AFTER 24 HOURS 11/11/24 23:27 Blood Blood Culture - Preliminary NO GROWTH AFTER 24 HOURS 11/12/24 16:06 Sputum - Expectorated Sputum Gram Stain - Final Microbiology 11/10/24 09:23 Sputum - Expectorated Sputum Gram Stain - Final 11/10/24 09:23 Sputum - Expectorated Sputum Sputum Culture - Preliminary Gram Negative Rods Constitutional: Present severe distress Head: Present normocephalic and atraumatic ENT: Present normal exam, normal oropharynx and mucous membranes moist Neck: Present normal inspection and full ROM Respiratory: Present respiratory distress, rhonchi and able to speak in complete sentences; Absent wheezes or normal respiratory effort Cardiac: Present S1/S2, Tachycardia and radial pulses present GI: Present soft and distention; Absent tenderness or guarding Skin: Present intact; Absent cyanosis or jaundice Neuro: Present alert, awake and oriented x 3 Extremities: Present normal inspection; Absent clubbing or cyanosis Psychiatric: Present normal affect and cooperative Assessment and Plan *Assessment and plan (1) Pneumonia: Status: Acute Category: Medical Code(s): J18.9 - Pneumonia, unspecified organism (2) Acute respiratory failure with hypoxia: Status: Acute Category: Medical Code(s): J96.01 - Acute respiratory failure with hypoxia Plan Mr. Magdaleno is a 84-year-old male with history of asthma COPD overlap syndrome, cervical spondylosis with polyneuropathy bilateral lower extremity weakness, baseline not using any oxygen supplementation discharged to hospital yesterday after being treated for pneumonia on examination on room air with no respiratory distress prior to discharge when home noted no acute worsening respiratory distress presented to the hospital with x-ray showing significant worsening airspace disease needing new oxygen requirements and presented to the ER and pulmonary was called for further evaluation and management. Afebrile. Hemodynamically stable. Mild neutrophilic predominant leukocytosis relatively stable from yesterday. Respiratory viral PCR panel positive for entero and rhinovirus. CTA PE protocol no evidence of pulmonary embolism. Bilateral diffuse ground glass opacities concerning for atypical/viral pneumonia. Echo from most recent admission normal LVEF. Diastolic dysfunction. Pro-Mart within normal limits. CRP elevated at 62.6. Hemoglobin stable. Monitor closely. Interval update: Continued worsening respiratory distress needing increasing oxygen appointments. Worsening chest x-ray findings. CRP worsening. No significant improvement with diuretics. Slight worsening leukocytosis. Afebrile. Hemodynamically stable. Blood cultures no growth 24 hours. Sputum cultures pending. Nasal MRSA PCR negative. Plan: Continue vancomycin and cefepime pending final culture results and MRSA PCR Will hold off on steroids at this point of time Continue high flow nasal cannula oxygen supplementation to maintain O2 saturation of 90% and above, currently on 40 L 65%. Bedside swallow evaluation Follow with repeat blood and sputum cultures DuoNebs every 6 hours along with Pulmicort every 12 scheduled
--- NOTE | 2024-11-13 14:23 | P.PN_ITS ---
Subjective *Date: 11/13/24 *Time: 14:23 Interval history: Appears in mild respiratory distress but states he is more comfortable than yesterday. Currently on Vapotherm 40 L and 80% on rounds. Afebrile. No nausea or vomiting. White count elevated at 17. Family at bedside. Chronically ill- appearing Medical Exam Vital signs and Labs for Last 24 Hours: Vital Signs Temp Pulse Pulse Resp BP BP Pulse Ox 11/13/24 13:15 11/13/24 12:00 98.6 F 94 H 22 102/44 L 95 11/13/24 11:30 114 H 20 100/35 L 96 11/13/24 11:16 87 20 88/35 L 97 11/13/24 11:10 11/13/24 11:00 90/50 L 11/13/24 10:52 96 H 28 H 97 11/13/24 10:52 89/47 L 11/13/24 10:45 86 25 H 97 11/13/24 10:36 89/41 L 11/13/24 10:36 92 H 24 95 11/13/24 09:05 11/13/24 08:30 92 L 11/13/24 08:00 89 11/13/24 08:00 99.2 F 88 22 109/51 L 93 L 11/13/24 07:00 11/13/24 06:00 98.4 F 82 16 107/42 L 91 L 11/13/24 05:55 79 11/13/24 05:55 81 11/13/24 05:50 90 L 11/13/24 05:00 11/13/24 04:00 98.1 F 89 26 H 95/44 L 91 L 11/13/24 04:00 90 11/13/24 03:00 11/13/24 02:00 90 22 78/40 L 98 11/13/24 02:00 92 L 11/13/24 01:00 11/13/24 00:00 98.8 F 97 H 20 84/42 L 92 L 11/13/24 00:00 96 H 11/12/24 23:53 93 L 11/12/24 23:37 96 H 11/12/24 23:37 97 H 11/12/24 23:00 11/12/24 22:00 99.1 F 106 H 25 H 109/55 L 95 11/12/24 21:00 11/12/24 20:55 98.6 F 111 H 20 129/73 90 L 11/12/24 20:50 114 H 11/12/24 20:50 95 11/12/24 20:35 93 L 11/12/24 19:12 93 L 11/12/24 19:12 11/12/24 19:00 11/12/24 18:20 104 H 11/12/24 18:20 102 H 11/12/24 17:00 11/12/24 16:31 110 H 11/12/24 16:00 98.8 F 96 H 16 118/67 92 L 11/12/24 15:00 O2 Del Method O2 Flow Rate FiO2 11/13/24 13:15 Vapotherm 40 11/13/24 12:00 Vapotherm 40 80 11/13/24 11:30 Vapotherm 40 80 11/13/24 11:16 Vapotherm 40 80 11/13/24 11:10 Vapotherm 40 11/13/24 11:00 11/13/24 10:52 Vapotherm 40 80 11/13/24 10:52 11/13/24 10:45 11/13/24 10:36 11/13/24 10:36 Vapotherm 40 80 11/13/24 09:05 Vapotherm 40 11/13/24 08:30 Vapotherm 40 80 11/13/24 08:00 11/13/24 08:00 Vapotherm 40 80 11/13/24 07:00 Vapotherm 35 11/13/24 06:00 Vapotherm 35 60 11/13/24 05:55 11/13/24 05:55 11/13/24 05:50 Vapotherm 35 60 11/13/24 05:00 Vapotherm 30 11/13/24 04:00 Vapotherm 35 70 11/13/24 04:00 11/13/24 03:00 Vapotherm 30 11/13/24 02:00 Vapotherm 35 70 11/13/24 02:00 Vapotherm 30 60 11/13/24 01:00 Vapotherm 30 11/13/24 00:00 Vapotherm 35 75 11/13/24 00:00 11/12/24 23:53 Vapotherm 30 60 11/12/24 23:37 11/12/24 23:37 11/12/24 23:00 Vapotherm 35 11/12/24 22:00 Vapotherm 35 70 11/12/24 21:00 Vapotherm 35 11/12/24 20:55 Vapotherm 35 70 11/12/24 20:50 11/12/24 20:50 Vapotherm 35 11/12/24 20:35 Vapotherm 35 70 11/12/24 19:12 CPAP 50 11/12/24 19:12 50 11/12/24 19:00 Nasal Cannula 6 11/12/24 18:20 11/12/24 18:20 11/12/24 17:00 Nasal Cannula 6 11/12/24 16:31 11/12/24 16:00 Nasal Cannula 6 11/12/24 15:00 Nasal Cannula 6 Intake and Output 11/12/24 11/13/24 11/13/24 23:59 07:59 15:59 Intake Total 250 / 950 1332.85 / 1682.85 350 / 1682.85 Output Total 525 / 625 300 / 300 Balance -275 / 325 1032.85 / 1382.85 350 / 1382.85 Intake: Intake, Oral Amount 0 / 0 Intake, Total IV Amount 250 / 350 1332.85 / 1682.85 350 / 1682.85 Cefepime HCl 2 gm In 0.9 % 100 / 200 100 / 200 Sodium Chloride 100 ml @ 200 mls/hr IV Q12H [facility] Rx#:[id number] Lactated Ringers 1000ML 250 ml 250 / 250 @ 999 mls/hr IV .Q16M [facility] Rx#: [id number] Ringers Solution,Lactated 500 482.85 / 482.85 ml @ 250 mls/hr IV .Q2H [facility] Rx# :[id number] Ringers Solution,Lactated 500 500 / 500 ml @ 250 mls/hr IV .Q2H [facility] Rx# :[id number] Vancomycin/Water For Inj (Peg) 250 / 250 250 / 250 1.25 gm In 250 ml @ 125 mls/hr IV Q24H [facility] Rx#:[id number] Output: Output, Urine Amount 525 / 625 300 / 300 Other: Number of Voids 2 Number of Unmeasured Voids 0 0 1 Weight 77.593 kg 77.593 kg Patient Weight 11/13/24 23:59 Weight 77.593 kg Laboratory Results - last 24 hr 11/12/24 11:50: MRSA (PCR) Negative 11/12/24 21:22: VBG pH 7.43 H, VBG pCO2 28.6 L, VBG pO2 50.6 H, VBG HCO3 18.4 L, VBG Total CO2 19.3 L, VBG O2 Saturation 87.7 H, VBG Base Excess -5.9 L, VBG Lactic Acid 2.4 H 11/13/24 02:37: Lactate 1.8 11/13/24 04:29: WBC 17.2 H D, RBC 3.56 L, Hgb 11.0 L, Hct 35.5 L, MCV 99.7 H, MCH 30.9, MCHC 31.0 L, RDW 15.6, Plt Count 190, MPV 9.3, Neut % (Auto) 85.3 H, Lymph % (Auto) 7.9 L, Branch % (Auto) 5.1, Eos % (Auto) 0.5, Baso % (Auto) 0.4, Neut # (Auto) 14.7 H, Lymph # (Auto) 1.4, Branch # (Auto) 0.9, Eos # (Auto) 0.1, Baso # (Auto) 0.1, Sodium 133 L, Potassium 4.3, Chloride 106, Carbon Dioxide 21 L, Anion Gap 10.3, BUN 20, Creatinine 1.90 H D, Estimated Creat Clear 33, Estimated GFR 34 L, Est GFR ( Amer) 41 L D, Glucose 80 D, Calcium 8.0 L, C-Reactive Protein 243.9 H 11/13/24 07:50: ABG pH 7.46 H, ABG pCO2 29.6 L, ABG pO2 55.2 L, ABG HCO3 20.7 L, ABG Total CO2 21.6 L, ABG O2 Saturation 89 L, ABG Base Excess -3.1 L I & O for Labs for Last 24 Hours: Intake & Output 11/10/24 11/11/24 11/12/24 11/13/24 23:59 23:59 23:59 23:59 Intake Total 950 / 950 1682.85 / 1682.85 Output Total 525 / 625 300 / 300 Balance 425 / 325 1382.85 / 1382.85 Weight 72.575 kg 76.402 kg 77.593 kg Microbiology Reports for the Last 24 Hours: Microbiology 11/11/24 23:27 Blood Blood Culture - Preliminary NO GROWTH AFTER 24 HOURS 11/11/24 23:27 Blood Blood Culture - Preliminary NO GROWTH AFTER 24 HOURS 11/12/24 16:06 Sputum - Expectorated Sputum Gram Stain - Final Constitutional: Present moderate distress, average body habitus, chronically ill appearing and cooperative Head: Present atraumatic and normocephalic ENT: Present normal exam Respiratory: Present prolonged expiratory phase, respiratory distress, wheezes and crackles; Absent rhonchi Cardiac: Present Regular Rhythm and Tachycardia GI: Present soft and normal bowel sounds; Absent distention or tenderness Extremities: Present normal inspection and full ROM; Absent edema Skin: Present intact; Absent erythema Neuro: Present Grossly Intact, alert, awake, oriented x 3 and moves all extremities Comment:: Decreased sensation in feet, chronic Assessment and Plan *Assessment and plan (1) Acute respiratory failure with hypoxia: Status: Acute Category: Medical Code(s): J96.01 - Acute respiratory failure with hypoxia (2) Pneumonia: Status: Acute Qualifiers: Laterality: left Lung location: lower lobe of lung Pneumonia type: due to unspecified organism Qualified Code(s): J18.9 - Pneumonia, unspecified organism Category: Medical Code(s): J18.9 - Pneumonia, unspecified organism (3) Enterovirus infection: Status: Acute Category: Medical Code(s): B34.1 - Enterovirus infection, unspecified (4) Asthma: Status: Acute Category: Medical Code(s): J45.909 - Unspecified asthma, uncomplicated (5) Polyneuropathy: Status: Chronic Category: Medical Code(s): G62.9 - Polyneuropathy, unspecified (6) Dementia: Problem Comment: Slowly progressive memory deficit currently on Namenda 10 mg p.o. twice daily. BMI 22.8, weight loss, mild anorexia. He is not a candidate for donezepil at this time Status: Chronic Qualifiers: Dementia type: unspecified type Dementia severity: mild Dementia behavioral or psychological symptom: without behavioral, psychotic, or mood disturbance or anxiety Qualified Code(s): F03.A0 - Unspecified dementia, mild, without behavioral disturbance, psychotic disturbance, mood disturbance, and anxiety Category: Medical Code(s): F03.90 - Unspecified dementia, unspecified severity, without behavioral disturbance, psychotic disturbance, mood disturbance, and anxiety (7) COPD (chronic obstructive pulmonary disease): Status: Chronic Qualifiers: COPD type: emphysema Emphysema type: centrilobular Qualified Code(s): J43.2 - Centrilobular emphysema Category: Medical Code(s): J44.9 - Chronic obstructive pulmonary disease, unspecified (8) Neuropathy: Problem Comment: Initial diagnosis at [facility]?Dr. Carrion. 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 Brisk reflexes likely due to cervical spondylosis without myelopathy and B12 deficiency 09/30/2023: Right hand weakness with muscle wasting involving intrinsic muscles, (ulnar nerve/C8-T1 dermatome distribution) Status: Chronic Category: Medical Code(s): G62.9 - Polyneuropathy, unspecified (9) ILD (interstitial lung disease): Status: Chronic Category: Medical Code(s): J84.9 - Interstitial pulmonary disease, unspecified Plan Kalia Magdaleno is a 84-year-old male with medical history significant for CAD with 8 stents (follows with [facility]), asthma on room air, anxiety/depression, complex partial seizures, dementia who unfortunately presented back to the ED shortly after discharge with shortness of breath. He was discharged in stable condition for treatment of aspiration pneumonia, on room air without respiratory distress and did well at home for a few hours but began feeling short of breath, found to be hypoxic in the ED. Respiratory panel positive for rhinovirus. Met for severe sepsis with tachycardia, leukocytosis, identified infection (pneumonia) with endorgan damage in the setting of respiratory failure. # Severe sepsis, present on admission #Acute hypoxic respiratory failure #Aspiration pneumonia, Klebsiella pneumonia #Rhino/entero-virus viral pneumonia #Hemoptysis #Asthma ? Unfortunately failed outpatient treatment, return to the ED with shortness of breath and worsening opacities on CXR. This time, positive for rhinovirus. Discharged with levofloxacin. ? Sputum culture from previous admission growing Klebsiella pneumonia essentially pansensitive, suspicious for aspiration. Patient denies going home and eating a meal or drinking. Speech therapy evaluated on previous admission, recommended mechanical soft with thin liquids. Planned for outpatient modified barium swallow study. Will hold on inpatient study at this time. Continue mechanical soft for the time being. -White count elevated at 17, hemoglobin 11. ? CRP remains elevated at 243 kidney function normal with BUN 20, creatinine 1.9 ? CTA on 11/12/2024, revealed new ground glass opacities, increased lymphadenopathy but no pulmonary embolism. - Discussed case with pulmonology, recommend continuing broad-spectrum antibiotics of vancomycin and cefepime pending final culture results and MRSA PCR. Hold on steroids at this time. - Continue high flow nasal cannula with goal sats greater 90%. Currently on 40 L, able to wean to 65% - Recommend bedside swallow eval. Hold on formal speech eval with modified barium due to patient's oxygen requirement. Reevaluate in the beginning of the week. - Blood and sputum cultures pending - DuoNebs every 6 hours scheduled and Pulmicort twice daily #History of CAD with stents #Hypertension ? Extensive coronary disease, and 8 stents in the past. Follows with [facility] [place]. ? ECHO 11/10/2024 with normal biventricular systolic function. BNP 742, no signs of volume overload. ? Cardiology consulted, s/p PCI with nonocclusive coronary arteries. ? Continue home aspirin, statin. ? Entresto held due to soft pressures during admission. #Anxiety/depression: Continue home desvenlafaxine, buspirone, trazodone. #Complex partial seizures: Continue home lamotrigine 150 mg twice daily. #Dementia: Continue home memantine. ICU/Critical care attestation This patient is critically ill with 32 minutes devoted solely to this patient managing life/organ supporting interventions that required physician assessment. This includes time spent making adjustments in ventilator settings, IV fluid administration, titration of pressors, adjustments of medications, discussion of patient with consultants and other care providers as well as updating patient and/or family (if patient by virtue of his/her condition is unable to participate in decision making). This does not include time spent performing separately billed procedures. Time is not concurrent with that of other providers.
--- NOTE | 2024-11-13 19:53 | PC.NURSE ---
Pt SOA with O2 sat 80%. Vapotherm titrated to 100% FIO2. Denisse RT at bedside. O2 sat increased to 86%. Pt still SOA. Pt agreeable to wear CPAP. Lucas GODWIN notified and to bedside. Pt on CPAP 12, 70% FIO2. Pt reports relief and O2 sat is 94%.
[2024-11-13] MEDS: GABAPENTIN 300MG CAPSULE 300 MG PO (22:31)
[2024-11-13] MEDS: MONTELUKAST SODIUM 10MG TAB 10 MG PO (22:31)
[2024-11-13] MEDS: ATORVASTATIN 40MG TABLET 40 MG PO (22:31)
[2024-11-13] MEDS: LATANOPROST 0.005% OPTH SOLN 2.5ML OP (22:41)
--- NOTE | 2024-11-13 22:45 | PC.NURSE ---
Addendum entered by Annalisa Alejo RN 11/13/24 23:01: also notified Hospitalist of pts HR being in 130's at the time. Pts HR came down to 100-120. Original Note: @ around 2130 pt had excessive coughing. Pts O2 sat decreased to 75% with increased WOB afterwards. Pt refusing to wear CPAP at time. Pt placed back on vapotherm temporarily with improvement to 85%. Pt agreed to be placed back on CPAP and O2 sat improved to 91-92%. O2 sat is now 97%. Lucas GODWIN notified. Orders placed for tessalon pearls and albuterol PRN.
[2024-11-13] MEDS: BENZONATATE 100MG CAPSULE 200 MG PO (22:51)
[2024-11-13] MEDS: TRAZODONE 50 MG 100 MG PO (22:52)
[2024-11-14] VITALS (90 sets, daily range): BP systolic 70–138; BP diastolic 30–82; PULSE 80–114; RESP 10–29; TEMP 36.3–37.1; O2SAT 74–99; BMI 23.0
[2024-11-14] MEDS: CEFEPIME HCL 2 GM in 0.9 % SODIUM CHLORIDE 100 ML IV ×3 (00:45→23:10)
[2024-11-14] MEDS: RINGERS SOLUTION,LACTATED 500 ML 250 ML IV ×2 (00:46→05:02)
[2024-11-14] MEDS: ACETAMINOPHEN 325MG TAB 650 MG PO (00:50)
--- NOTE | 2024-11-14 01:00 | PC.NURSE ---
Addendum entered by Annalisa Alejo RN 11/14/24 03:09: Pt remains hypotensive after IVF bolus. See VS. Pt asymptomatic. Lucas GODWIN notified. Original Note: Lucas GODWIN notified of pts hypotension. - see VS. Order placed for IVF. see MAR
[2024-11-14] MEDS: NOREPINEPHRINE BITARTRATE/D5W 8 MG/250 ML PLAST..BAG 3.75 MG IV (05:02)
[2024-11-14] MEDS: HYDROCORTISONE SOD SUCCINATE 100MG VIAL 100 MG IV (05:03)
--- NOTE | 2024-11-14 05:24 | PC.NURSE ---
pt persistently hypotensive (see vs). [employer] made aware. Norepi gtt started @0502 per MAR
[2024-11-14] MEDS: IPRATROPIUM/ALBUTEROL 3 ML NEB IH ×4 (06:55→23:34)
[2024-11-14] MEDS: BUDESONIDE 0.5MG/2ML NEB 0.5 MG IH ×2 (06:55→18:53)
[2024-11-14 07:18] LABS: Hematocrit 29.9 % (42.0-52.0); Hemoglobin 9.8 g/dL (14.1-18.0); Immature Granulocytes % 0.7 %; Mean Corpuscular HGB Conc 32.8 g/dL (31.8-35.4); Mean Corpuscular Hemoglobin 31.5 pg (27.0-31.2); Mean Corpuscular Volume 96.1 fl (80-94); Nucleated Red Blood Cells % 0 %; Platelet Count 202 K/mm3 (142-424); Red Blood Count 3.11 M/mm3 (4.60-6.20); Red Cell Distribution Width-SD 55.8 fL; White Blood Count 19.1 K/mm3 (4.8-10.8)
[2024-11-14 07:36] LABS: Anion Gap 10.8 mEq/L (5-15); Blood Urea Nitrogen 26 mg/dl (9-20); Calcium 8.0 mg/dl (8.4-10.2); Carbon Dioxide 19 mmol/L (22.0-30.0); Chloride 108 mmol/L (98-107); Creatinine Clearance Estimated 33 mL/min (50-200); Creatinine,Serum 1.90 mg/dl (0.66-1.25); Estimated Glomerular Filt Rate 34 ml/min (>60); GFR (African American) 41 ML/MIN (>60); Glucose 99 mg/dl (74-100); Potassium 3.8 mmoL/L (3.5-5.1); Sodium 134 mmol/L (136-145)
[2024-11-14 07:48] LABS: C-Reactive Protein > 320.0 mg/L (0-4)
[2024-11-14] MEDS: BENZONATATE 100MG CAPSULE 200 MG PO (09:01)
[2024-11-14] MEDS: ASPIRIN EC 81MG TABLET 81 MG PO (09:02)
[2024-11-14] MEDS: MEMANTINE 10MG TABLET 10 MG PO ×2 (09:02→20:13)
[2024-11-14] MEDS: BUSPIRONE HCL 5 MG TABLET PO ×2 (09:02→20:13)
[2024-11-14] MEDS: CHOLECALCIFEROL 1,000 UNITS (25MCG) TABLET 25 MCG PO (09:02)
[2024-11-14] MEDS: BRIMONIDINE 0.2% OPHTH SOLN 5ML BOTTLE OP ×2 (09:03→20:14)
[2024-11-14] MEDS: METHYLPREDNISOLONE SOD SUCC 40MG VIAL 40 MG IV ×2 (10:07→20:13)
[2024-11-14 13:20] LABS: Microscopic, Urine URINE MICROSCOPIC (MICROSCOPIC)
[2024-11-14 13:22] LABS: Bilirubin,Urine Negative (Negative); Color,Urine YELLOW (Yellow); Glucose,Urine (UA) Negative (Negative); Ketones,Urine TRACE (Negative); Leukocyte Esterase,Urine Negative (Negative); PH,Urine 5.5 (5.0-8.5); Protein,Urine TRACE (Negative); Specific Gravity, Urine 1.015 (1.005-1.030); Urobilinogen,Urine 0.2 EU/dl (0.2)
[2024-11-14 13:34] LABS: Bacteria,Urine 1+ /lpf; Squamous Epithelial Cell,Urine Occasional #/hpf (0-5)
[2024-11-14 14:29] LABS: Vancomycin,Trough 12.8 ug/mL (5.0-10.0)
--- NOTE | 2024-11-14 14:40 | EXP.PHA.CONS ---
Pharmacy Consult Date: 11/14/24 Time: 14:40 Referring provider: DR. HOLLEY Reason for Consult:: VANCOMYCIN LEVEL Allergies Allergy/AdvReac Type Severity Reaction Status Date / Time levetiracetam (From [facility]) AdvReac Severe anger, Verified 10/06/24 14:44 depression, gait disturbance Home Medications ?Medication ?Instructions ?Recorded ?Confirmed ?Type aspirin 81 mg tablet,delayed 81 mg PO DAILY Heart disease 03/19/17 11/12/24 History release (Adult Low Dose Aspirin) sacubitril 24 mg-valsartan 26 mg 1 tab PO BID Heart failure 09/21/21 11/12/24 History tablet Held on 11/11/24. Instructions: Resume on 11/18/24. Your blood pressures were low normal during admission, please follow-up with cardiology to discuss restarting this medication. sildenafil (pulm.hypertension) 20 20 mg PO DIRECTED PRN sexual 02/06/22 11/12/24 Rx mg tablet activity #40 tabs cholecalciferol (vitamin D3) 25 25 mcg PO DAILY 07/26/22 11/12/24 History mcg (1,000 unit) capsule gabapentin 300 mg capsule 300 mg PO HS #30 caps 08/27/23 11/12/24 Rx (Neurontin) lamotrigine 100 mg tablet 150 mg (1.5 x 100 mg) PO BID 06/10/24 11/12/24 Rx Complex partial seizure #270 tabs brimonidine 0.2 % eye drops 1 drp Eye-Both BID 07/06/24 11/12/24 History buspirone 5 mg tablet 5 mg PO BID 07/06/24 11/12/24 History desvenlafaxine succinate 50 mg 50 mg PO DAILY 07/06/24 11/12/24 History tablet,extended release 24 hr diazepam 2 mg tablet 2 mg PO DAILY PRN Anxiety 07/06/24 11/12/24 History fluticasone 250 mcg-salmeterol 50 1 inh inhalation BID 90 days #180 07/06/24 11/12/24 Rx mcg/dose blistr powdr for ea inhalation latanoprost 0.005 % eye drops 1 drp Eye-Both HS 07/06/24 11/12/24 History atorvastatin 40 mg tablet 40 mg PO HS 11/09/24 11/12/24 History ondansetron 4 mg disintegrating 4 mg PO Q8 PRN Nausea And Vomiting 11/09/24 11/12/24 History tablet trazodone 50 mg tablet 100 mg PO HS PRN Sleep 11/09/24 11/12/24 History albuterol sulfate 90 mcg/actuation 2 inh inhalation Q4HP PRN 11/10/24 11/12/24 History aerosol inhaler shortness of breath or wheezing memantine 10 mg tablet 10 mg PO BID 11/10/24 11/12/24 History levofloxacin 750 mg tablet 750 mg PO Q48H 4 days #2 tabs 11/11/24 11/12/24 Rx New Prescriptions to Start Prescriptions: Height: 1.83 m Weight: 77.111 kg Laboratory Results:: Laboratory Results - last 24 hr 11/14/24 06:50: WBC 19.1 H, RBC 3.11 L, Hgb 9.8 L, Hct 29.9 L, MCV 96.1 H, MCH 31.5 H, MCHC 32.8, RDW 15.7, Plt Count 202, MPV 9.3, Neut % (Auto) 91.1 H, Lymph % (Auto) 3.3 L, [place] % (Auto) 3.2, Eos % (Auto) 1.4, Baso % (Auto) 0.3, Neut # (Auto) 17.4 H, Lymph # (Auto) 0.6 L, [place] # (Auto) 0.6, Eos # (Auto) 0.3, Baso # (Auto) 0.1, Sodium 134 L, Potassium 3.8, Chloride 108 H, Carbon Dioxide 19 L, Anion Gap 10.8, BUN 26 H D, Creatinine 1.90 H, Estimated Creat Clear 33, Estimated GFR 34 L, Est GFR ( Amer) 41 L, Glucose 99, Calcium 8.0 L, C-Reactive Protein > 320.0 H 11/14/24 12:51: Urine Color Yellow, Urine Appearance Sl cloudy, Urine pH 5.5, Ur Specific [place] 1.015, Urine Protein Trace, Urine Glucose (UA) Negative, Urine Ketones Trace, Urine Blood 3+ A, Urine Nitrate Negative, Urine Bilirubin Negative, Urine Urobilinogen 0.2, Ur Leukocyte Esterase Negative, Urine RBC 3-5, Urine WBC None, Ur Squamous Epith Cells Occasional, Urine Bacteria 1+, Fine Granular Casts 3-5 11/14/24 13:00: Vancomycin Trough 12.8 H Medical History: Medical History (Updated 11/13/24 @ 14:28 by Anton Holley MD) Acute respiratory failure with hypoxia Tinnitus of right ear Sensorineural hearing loss (SNHL) of both ears Hearing loss Tinnitus Restrictive lung disease History of 2019 novel coronavirus disease (COVID-19) Asthma-COPD overlap syndrome Abnormal PFT Moderate persistent asthma ILD (interstitial lung disease) Centrilobular emphysema Dyspnea on exertion LAURA on CPAP Bradycardia Assessment and Plan Assessment and plan all Dx Assessment and Plan for all problems:: PATIENT'S VANCOMYCIN LEVEL WAS 12.8 MCG/ML TODAY. RECOMMENDED PATIENT CONTINUE WITH VANCOMYCIN 1250 MG Q24H AT THIS TIME.
[2024-11-14] MEDS: VANCOMYCIN/WATER FOR INJ (PEG) 1.25 GM/250 ML PIGGYBACK IV (14:42)
--- NOTE | 2024-11-14 16:08 | EXP.ACUTE.PN ---
Subjective *Date: 11/14/24 *Time: 19:22 Interval history: Required escalation of respiratory support overnight to CPAP due to hypoxia. Will attempt to wean off CPAP to Vapotherm today. Patient interactive on exam this morning. Giving a thumbs up with questions or thumbs down. Family at bedside. Afebrile. Also became hypotensive necessitating escalation of care with Levophed to maintain MAP greater than 60. Medical Exam Vital signs and Labs for Last 24 Hours: Vital Signs Temp Pulse Resp BP Pulse Ox O2 Del Method O2 Flow Rate 11/14/24 15:51 97 Vapotherm 40 11/14/24 15:00 Vapotherm 11/14/24 15:00 89 22 124/79 97 Vapotherm 40 11/14/24 14:00 85 28 H 96 11/14/24 14:00 85 24 123/62 96 Vapotherm 40 11/14/24 13:43 96 Vapotherm 40 11/14/24 13:30 99 BiPAP 11/14/24 13:17 BiPAP 11/14/24 13:00 88 23 125/59 L 98 Vapotherm 40 11/14/24 12:40 88 19 108/59 L 98 BiPAP 11/14/24 12:30 87 24 117/60 97 BiPAP 11/14/24 12:21 93 H 24 110/56 L 98 BiPAP 11/14/24 12:00 97.4 F L 97 H 22 121/60 98 BiPAP 11/14/24 12:00 85 11/14/24 11:50 89 22 110/57 L 99 BiPAP 11/14/24 11:30 89 20 119/59 L 99 BiPAP 11/14/24 11:18 BiPAP 14 11/14/24 11:10 84 20 132/78 98 BiPAP 11/14/24 11:01 84 20 128/64 99 BiPAP 11/14/24 11:00 86 11/14/24 11:00 88 11/14/24 11:00 93 L CPAP 11/14/24 11:00 11/14/24 10:50 87 19 104/55 L 99 BiPAP 11/14/24 10:40 97 H 17 103/42 L 99 BiPAP 11/14/24 10:30 82 18 79/50 L 99 BiPAP 11/14/24 10:00 86 20 89/46 L 99 CPAP 11/14/24 09:30 89 24 114/58 L 97 CPAP 11/14/24 09:01 98 H 22 116/63 96 CPAP 11/14/24 09:00 CPAP 11/14/24 08:32 107 H 26 H 122/58 L 91 L CPAP 11/14/24 08:00 98.3 F 86 18 91/49 L 98 CPAP 11/14/24 08:00 97 CPAP 12 11/14/24 08:00 83 11/14/24 07:00 88 22 100/53 L 98 CPAP 11/14/24 07:00 CPAP 11/14/24 06:55 80 11/14/24 06:55 87 11/14/24 06:55 98 CPAP 11/14/24 06:55 70 11/14/24 06:35 87 20 96/58 L 98 CPAP 11/14/24 06:30 87 22 98/53 L 99 CPAP 11/14/24 06:26 86 22 100/50 L 99 CPAP 11/14/24 06:22 93 H 24 119/47 L 98 CPAP 11/14/24 06:15 84 19 90/48 L 98 CPAP 11/14/24 06:00 82 19 80/43 L 98 11/14/24 05:59 83 19 82/44 L 97 CPAP 11/14/24 05:50 84 20 83/40 L 97 CPAP 11/14/24 05:45 84 20 73/45 L 97 CPAP 11/14/24 05:30 89 21 82/42 L 97 CPAP 11/14/24 05:28 105 H 21 86/47 L 96 CPAP 11/14/24 05:22 93 H 24 113/50 L 96 CPAP 11/14/24 05:15 100 H 24 101/51 L 97 CPAP 11/14/24 05:10 94 H 26 H 97/49 L 97 CPAP 11/14/24 05:00 CPAP 11/14/24 05:00 93 H 24 93/53 L 98 CPAP 11/14/24 04:50 75/46 L 11/14/24 04:35 74/43 L 11/14/24 04:30 91 H 21 75/42 L 97 CPAP 11/14/24 04:25 81/51 L 11/14/24 04:15 94 H 22 84/47 L 97 CPAP 11/14/24 04:00 98.7 F 11/14/24 04:00 89 11/14/24 04:00 96 H 22 86/52 L 95 11/14/24 03:57 95 H 25 H 103/56 L 95 CPAP 11/14/24 03:51 103 H 29 H 92/59 L 96 CPAP 11/14/24 03:30 98 H 23 77/37 L 95 CPAP 11/14/24 03:22 104 H 25 H 108/43 L 96 CPAP 11/14/24 03:15 90/50 L 11/14/24 03:00 CPAP 11/14/24 03:00 97 H 24 70/30 L 97 CPAP 11/14/24 02:55 105 H 27 H 82/36 L 93 L CPAP 11/14/24 02:45 95 H 22 77/43 L 96 CPAP 11/14/24 02:31 99 H 26 H 88/51 L 94 L CPAP 11/14/24 02:20 103 H 26 H 85/49 L 96 CPAP 11/14/24 02:00 CPAP 11/14/24 02:00 99 H 26 H 91/47 L 96 CPAP 11/14/24 01:48 11/14/24 01:00 105 H 21 101/46 L 95 11/14/24 01:00 CPAP 11/14/24 00:29 101 H 29 H 76/36 L 94 L CPAP 11/14/24 00:15 108 H 22 92/49 L 96 11/14/24 00:12 77/45 L 11/14/24 00:00 90/42 L 11/14/24 00:00 105 H 11/13/24 23:31 99/46 L 11/13/24 23:29 84/47 L 11/13/24 23:11 109 H 11/13/24 23:11 113 H 11/13/24 23:00 CPAP 11/13/24 22:00 115 H 27 H 114/49 L 95 CPAP 11/13/24 21:32 11/13/24 21:00 CPAP 11/13/24 20:12 99.1 F 11/13/24 20:00 112 H 25 H 124/55 L 95 CPAP 11/13/24 20:00 95 CPAP 11/13/24 20:00 111 H 11/13/24 19:40 11/13/24 19:32 107 H 23 103/52 L 82 L Vapotherm 40 11/13/24 19:00 114 H 19 101/46 L 84 L Vapotherm 40 11/13/24 18:53 99 H 11/13/24 18:53 101 H 11/13/24 18:53 90 L Vapotherm 40 11/13/24 18:40 Vapotherm 40 11/13/24 18:00 95 H 22 126/60 97 Vapotherm 40 11/13/24 17:30 96 H 24 115/49 L 93 L Vapotherm 40 11/13/24 17:00 101 H 24 99/55 L 93 L Vapotherm 40 11/13/24 17:00 Vapotherm 40 11/13/24 16:30 116 H 22 95/53 L 92 L Vapotherm 40 FiO2 11/14/24 15:51 11/14/24 15:00 11/14/24 15:00 100 11/14/24 14:00 11/14/24 14:00 100 11/14/24 13:43 100 11/14/24 13:30 70 11/14/24 13:17 11/14/24 13:00 100 11/14/24 12:40 70 11/14/24 12:30 70 11/14/24 12:21 70 11/14/24 12:00 70 11/14/24 12:00 11/14/24 11:50 70 11/14/24 11:30 70 11/14/24 11:18 11/14/24 11:10 70 11/14/24 11:01 70 11/14/24 11:00 11/14/24 11:00 11/14/24 11:00 70 11/14/24 11:00 70 11/14/24 10:50 70 11/14/24 10:40 70 11/14/24 10:30 70 11/14/24 10:00 70 11/14/24 09:30 70 11/14/24 09:01 70 11/14/24 09:00 11/14/24 08:32 70 11/14/24 08:00 70 11/14/24 08:00 70 11/14/24 08:00 11/14/24 07:00 70 11/14/24 07:00 11/14/24 06:55 11/14/24 06:55 11/14/24 06:55 70 11/14/24 06:55 11/14/24 06:35 11/14/24 06:30 11/14/24 06:26 11/14/24 06:22 11/14/24 06:15 11/14/24 06:00 11/14/24 05:59 11/14/24 05:50 11/14/24 05:45 11/14/24 05:30 11/14/24 05:28 11/14/24 05:22 11/14/24 05:15 11/14/24 05:10 11/14/24 05:00 11/14/24 05:00 11/14/24 04:50 11/14/24 04:35 11/14/24 04:30 11/14/24 04:25 11/14/24 04:15 11/14/24 04:00 11/14/24 04:00 11/14/24 04:00 11/14/24 03:57 11/14/24 03:51 11/14/24 03:30 11/14/24 03:22 11/14/24 03:15 11/14/24 03:00 11/14/24 03:00 11/14/24 02:55 11/14/24 02:45 11/14/24 02:31 11/14/24 02:20 11/14/24 02:00 11/14/24 02:00 11/14/24 01:48 70 11/14/24 01:00 11/14/24 01:00 11/14/24 00:29 11/14/24 00:15 11/14/24 00:12 11/14/24 00:00 11/14/24 00:00 11/13/24 23:31 11/13/24 23:29 11/13/24 23:11 11/13/24 23:11 11/13/24 23:00 11/13/24 22:00 11/13/24 21:32 70 11/13/24 21:00 11/13/24 20:12 11/13/24 20:00 70 11/13/24 20:00 70 11/13/24 20:00 11/13/24 19:40 70 11/13/24 19:32 100 11/13/24 19:00 70 11/13/24 18:53 11/13/24 18:53 11/13/24 18:53 75 11/13/24 18:40 11/13/24 18:00 75 11/13/24 17:30 11/13/24 17:00 11/13/24 17:00 11/13/24 16:30 Intake and Output 11/14/24 11/14/24 11/14/24 07:59 15:59 23:59 Intake Total 856.345 / 1067.677 211.332 / 1067.677 Output Total 250 / 920 670 / 920 Balance 606.345 / 147.677 -458.668 / 147.677 Intake: Intake, Total IV Amount 856.345 / 1067.677 211.332 / 1067.677 Cefepime HCl 2 gm In 0.9 % 100 / 200 100 / 200 Sodium Chloride 100 ml @ 200 mls/hr IV Q12H [facility] Rx#:[id number] Norepinephrine Bitartrate/D5w 8 6.345 / 117.677 111.332 / 117.677 mg In 250 ml @ 2 MCG/MIN 3.75 mls/hr IV .Q24H [facility] Rx#: [id number] Ringers Solution,Lactated 500 750 / 750 ml @ 250 mls/hr IV .Q2H ONE Rx# :[id number] Output: Output, Urine Amount 250 / 920 670 / 920 Other: Number of Unmeasured Voids 0 Weight 77.111 kg 77.111 kg Patient Weight 11/14/24 23:59 Weight 77.111 kg Laboratory Results - last 24 hr 11/14/24 06:50: WBC 19.1 H, RBC 3.11 L, Hgb 9.8 L, Hct 29.9 L, MCV 96.1 H, MCH 31.5 H, MCHC 32.8, RDW 15.7, Plt Count 202, MPV 9.3, Neut % (Auto) 91.1 H, Lymph % (Auto) 3.3 L, [place] % (Auto) 3.2, Eos % (Auto) 1.4, Baso % (Auto) 0.3, Neut # (Auto) 17.4 H, Lymph # (Auto) 0.6 L, [place] # (Auto) 0.6, Eos # (Auto) 0.3, Baso # (Auto) 0.1, Sodium 134 L, Potassium 3.8, Chloride 108 H, Carbon Dioxide 19 L, Anion Gap 10.8, BUN 26 H D, Creatinine 1.90 H, Estimated Creat Clear 33, Estimated GFR 34 L, Est GFR ( Amer) 41 L, Glucose 99, Calcium 8.0 L, C-Reactive Protein > 320.0 H 11/14/24 12:51: Urine Color Yellow, Urine Appearance Sl cloudy, Urine pH 5.5, Ur Specific [place] 1.015, Urine Protein Trace, Urine Glucose (UA) Negative, Urine Ketones Trace, Urine Blood 3+ A, Urine Nitrate Negative, Urine Bilirubin Negative, Urine Urobilinogen 0.2, Ur Leukocyte Esterase Negative, Urine RBC 3-5, Urine WBC None, Ur Squamous Epith Cells Occasional, Urine Bacteria 1+, Fine Granular Casts 3-5 11/14/24 13:00: Vancomycin Trough 12.8 H I & O for Labs for Last 24 Hours: Intake & Output 11/11/24 11/12/24 11/13/24 11/14/24 23:59 23:59 23:59 23:59 Intake Total 950 / 950 1802.85 / 1802.85 1067.677 / 1067.677 Output Total 525 / 625 650 / 650 920 / 920 Balance 425 / 325 1152.85 / 1152.85 147.677 / 147.677 Weight 72.575 kg 76.402 kg 77.593 kg 77.111 kg Microbiology Reports for the Last 24 Hours: Microbiology 11/12/24 16:06 Sputum - Expectorated Sputum Gram Stain - Final 11/12/24 16:06 Sputum - Expectorated Sputum Sputum Culture - Final 11/11/24 23:27 Blood Blood Culture - Preliminary NO GROWTH AFTER 48 HOURS 11/11/24 23:27 Blood Blood Culture - Preliminary NO GROWTH AFTER 48 HOURS Constitutional: Present severe distress, average body habitus, chronically ill appearing and cooperative Head: Present atraumatic and normocephalic ENT: Present normal exam Respiratory: Present accessory muscle use, prolonged expiratory phase, respiratory distress, wheezes, crackles and diminished air movement; Absent rhonchi Cardiac: Present Regular Rhythm and Tachycardia GI: Present soft and normal bowel sounds; Absent distention or tenderness Extremities: Present normal inspection and full ROM; Absent edema Skin: Present intact; Absent erythema Neuro: Present Grossly Intact, alert, awake, oriented x 3 and moves all extremities Comment:: Decreased sensation in feet, chronic Assessment and Plan *Assessment and plan (1) Acute respiratory failure with hypoxia: Status: Acute Category: Medical Code(s): J96.01 - Acute respiratory failure with hypoxia (2) Pneumonia: Status: Acute Qualifiers: Laterality: left Lung location: lower lobe of lung Pneumonia type: due to unspecified organism Qualified Code(s): J18.9 - Pneumonia, unspecified organism Category: Medical Code(s): J18.9 - Pneumonia, unspecified organism (3) Enterovirus infection: Status: Acute Category: Medical Code(s): B34.1 - Enterovirus infection, unspecified (4) Asthma: Status: Acute Category: Medical Code(s): J45.909 - Unspecified asthma, uncomplicated (5) Polyneuropathy: Status: Chronic Category: Medical Code(s): G62.9 - Polyneuropathy, unspecified (6) Dementia: Problem Comment: Slowly progressive memory deficit currently on Namenda 10 mg p.o. twice daily. BMI 22.8, weight loss, mild anorexia. He is not a candidate for donezepil at this time Status: Chronic Qualifiers: Dementia behavioral or psychological symptom: without behavioral, psychotic, or mood disturbance or anxiety Dementia severity: mild Dementia type: unspecified type Qualified Code(s): F03.A0 - Unspecified dementia, mild, without behavioral disturbance, psychotic disturbance, mood disturbance, and anxiety Category: Medical Code(s): F03.90 - Unspecified dementia, unspecified severity, without behavioral disturbance, psychotic disturbance, mood disturbance, and anxiety (7) COPD (chronic obstructive pulmonary disease): Status: Chronic Qualifiers: COPD type: emphysema Emphysema type: centrilobular Qualified Code(s): J43.2 - Centrilobular emphysema Category: Medical Code(s): J44.9 - Chronic obstructive pulmonary disease, unspecified (8) Neuropathy: Problem Comment: Initial diagnosis at [facility]?Dr. Carrion. 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 Brisk reflexes likely due to cervical spondylosis without myelopathy and B12 deficiency 09/30/2023: Right hand weakness with muscle wasting involving intrinsic muscles, (ulnar nerve/C8-T1 dermatome distribution) Status: Chronic Category: Medical Code(s): G62.9 - Polyneuropathy, unspecified (9) ILD (interstitial lung disease): Status: Chronic Category: Medical Code(s): J84.9 - Interstitial pulmonary disease, unspecified (10) Klebsiella pneumoniae pneumonia: Status: Acute Category: Medical Code(s): J15.0 - Pneumonia due to Klebsiella pneumoniae Anshu Magdaleno is a 84-year-old male with medical history significant for CAD with 8 stents (follows with [facility]), asthma on room air, anxiety/depression, complex partial seizures, dementia who unfortunately presented back to the ED shortly after discharge with shortness of breath. He was discharged in stable condition for treatment of aspiration pneumonia, on room air without respiratory distress and did well at home for a few hours but began feeling short of breath, found to be hypoxic in the ED. Respiratory panel positive for rhinovirus. Met for severe sepsis with tachycardia, leukocytosis, identified infection (pneumonia) with endorgan damage in the setting of respiratory failure. # Septic shock, developed overnight #severe sepsis, present on admission #Acute hypoxic respiratory failure #Aspiration pneumonia, Klebsiella pneumonia #Rhino/entero-virus viral pneumonia #Hemoptysis #Asthma ? Sputum culture was positive on 11/10 for Klebsiella. -Competence of respiratory panel positive 11/12 for rhino/enterovirus - Patient having septic shock necessitating norepinephrine for hypotension. Continue Levophed for goal MAP greater than 65. - Placed on CPAP overnight. Will transition to BiPAP to decrease risk for barotrauma. Case discussed with pulmonology, tolerates BiPAP, will attempt to wean to Vapotherm. Goal sats greater 90%. Patient amenable to intubation if necessitates due to worsening respiratory failure - Continue mechanical soft for the time being. - White count worse at 19. Hemoglobin 9.8. Platelets 202. - CRP increased from 243 to greater than 300. Kidney function stable with BUN 26, creatinine 1.9. ? CTA on 11/12/2024, revealed new ground glass opacities, increased lymphadenopathy but no pulmonary embolism. - Discussed case with pulmonology, recommend continuing broad-spectrum antibiotics of vancomycin and cefepime pending final culture results and MRSA PCR. - Initiate steroids and methylprednisolone 40 mg IV twice daily. - Blood and sputum cultures pending - DuoNebs every 6 hours scheduled and Pulmicort twice daily #History of CAD with stents #Hypertension ? Extensive coronary disease, and 8 stents in the past. Follows with [facility] [place] [place]. ? ECHO 11/10/2024 with normal biventricular systolic function. BNP 742, no signs of volume overload. ? Cardiology consulted, s/p PCI with nonocclusive coronary arteries. ? Continue home aspirin, statin. ? Entresto held due to soft pressures during admission. #Anxiety/depression: Continue home desvenlafaxine, buspirone, trazodone. #Complex partial seizures: Continue home lamotrigine 150 mg twice daily. #Dementia: Continue home memantine. ICU/Critical care attestation This patient is critically ill with 38 minutes devoted solely to this patient managing life/organ supporting interventions that required physician assessment. This includes time spent making adjustments in ventilator settings, IV fluid administration, titration of pressors, adjustments of medications, discussion of patient with consultants and other care providers as well as updating patient and/or family (if patient by virtue of his/her condition is unable to participate in decision making). This does not include time spent performing separately billed procedures. Time is not concurrent with that of other providers.
[2024-11-14] MEDS: GABAPENTIN 300MG CAPSULE 300 MG PO (20:12)
[2024-11-14] MEDS: TRAZODONE 50 MG 100 MG PO (20:12)
[2024-11-14] MEDS: LATANOPROST 0.005% OPTH SOLN 2.5ML OP (20:13)
[2024-11-14] MEDS: MONTELUKAST SODIUM 10MG TAB 10 MG PO (20:13)
[2024-11-14] MEDS: ATORVASTATIN 40MG TABLET 40 MG PO (20:13)
[2024-11-15] VITALS (44 sets, daily range): BP systolic 96–130; BP diastolic 48–77; PULSE 71–114; RESP 18–30; TEMP 36.1–36.8; O2SAT 88–97; BMI 23.0
[2024-11-15 05:51] LABS: Hematocrit 30.4 % (42.0-52.0); Hemoglobin 9.9 g/dL (14.1-18.0); Immature Granulocytes % 0.8 %; Mean Corpuscular HGB Conc 32.6 g/dL (31.8-35.4); Mean Corpuscular Hemoglobin 31.1 pg (27.0-31.2); Mean Corpuscular Volume 95.6 fl (80-94); Nucleated Red Blood Cells % 0 %; Platelet Count 195 K/mm3 (142-424); Red Blood Count 3.18 M/mm3 (4.60-6.20); Red Cell Distribution Width-SD 55.4 fL; White Blood Count 19.8 K/mm3 (4.8-10.8)
[2024-11-15 06:14] LABS: Alanine Aminotransferase 31 U/L (12-78); Albumin Level 3.2 g/dl (3.5-5.0); Albumin/Globulin Ratio 1.1 (1.1-1.8); Alkaline Phosphatase 124 U/L (38-126); Anion Gap 12.3 mEq/L (5-15); Aspartate Amino Transferase 69 U/L (17-59); Bilirubin,Total 1.2 mg/dl (0.2-1.3); Blood Urea Nitrogen 28 mg/dl (9-20); Calcium 8.8 mg/dl (8.4-10.2); Carbon Dioxide 17 mmol/L (22.0-30.0); Chloride 113 mmol/L (98-107); Creatinine Clearance Estimated 37 mL/min (50-200); Creatinine,Serum 1.70 mg/dl (0.66-1.25); Estimated Glomerular Filt Rate 39 ml/min (>60); GFR (African American) 47 ML/MIN (>60); Globulin 3.0 g/dL (1.3-3.2); Glucose 133 mg/dl (74-100); Magnesium 2.5 mg/dl (1.6-2.3); Potassium 3.3 mmoL/L (3.5-5.1); Sodium 139 mmol/L (136-145); Total Protein,Serum 6.2 g/dl (6.3-8.2)
[2024-11-15] MEDS: IPRATROPIUM/ALBUTEROL 3 ML NEB IH ×3 (06:27→18:38)
[2024-11-15] MEDS: BUDESONIDE 0.5MG/2ML NEB 0.5 MG IH ×2 (06:27→18:39)
[2024-11-15 06:30] LABS: C-Reactive Protein 326.2 mg/L (0-4)
[2024-11-15 06:44] LABS: Lactate Venous 1.1 mmol/L (0.4-2.0); VBG HCO3 17.8 mmol/L (23-30); VBG PCO2 30.0 mmol/L (35-51); VBG PH 7.39 mmol/L (7.31-7.41); VBG PO2 82.6 mmol/L (28-40)
[2024-11-15 06:52] LABS: RBC Morphology Normal; Total Cells Counted 100
[2024-11-15] MEDS: BRIMONIDINE 0.2% OPHTH SOLN 5ML BOTTLE OP ×2 (09:01→20:28)
[2024-11-15] MEDS: CHOLECALCIFEROL 1,000 UNITS (25MCG) TABLET 25 MCG PO (09:03)
[2024-11-15] MEDS: MEMANTINE 10MG TABLET 10 MG PO ×2 (09:03→20:29)
[2024-11-15] MEDS: BENZONATATE 100MG CAPSULE 200 MG PO (09:03)
[2024-11-15] MEDS: ASPIRIN EC 81MG TABLET 81 MG PO (09:03)
[2024-11-15] MEDS: BUSPIRONE HCL 5 MG TABLET PO ×2 (09:03→20:29)
[2024-11-15] MEDS: METHYLPREDNISOLONE SOD SUCC 40MG VIAL 40 MG IV ×2 (09:05→20:29)
--- NOTE | 2024-11-15 09:07 | XR_ITS ---
PROCEDURE INFORMATION: Exam: XR Chest Exam date and time: 11/15/2024 9:13 AM Age: 84 years old Clinical indication: Other: Vapotherm, pneumonia; Additional info: Vapotherm/pneumonia TECHNIQUE: Imaging protocol: Radiologic exam of the chest. Views: 1 view. Total images: 1 COMPARISON: CR XR CHEST PORTABLE 11/13/2024 8:39 AM FINDINGS: Lungs: Moderate interstitial prominence bilaterally. Atelectatic and/or early infiltrative changes noted within the left lower lobe. Pleural spaces: Bilateral pleural effusions. No evidence of pneumothorax. Heart/Mediastinum: No cardiomegaly. Vasculature: Mild atherosclerotic disease. Diaphragm: There is nonspecific elevation of the right hemidiaphragm. Bones/joints: The thoracic spine demonstrates mild degenerative changes at multiple levels. IMPRESSION: 1. Moderate interstitial prominence bilaterally. 2. Bilateral pleural effusions. 3. Atelectatic and/or early infiltrative changes noted within the left lower lobe.
[2024-11-15] MEDS: diazePAM 10MG/2ML SYRINGE 2 MG IV (10:22)
--- NOTE | 2024-11-15 10:30 | EXP.PHA.PN ---
Subjective *Date: 11/15/24 *Time: 10:30 Medical Exam Vital signs and Labs for Last 24 Hours: Vital Signs Temp Pulse Resp BP Pulse Ox O2 Del Method O2 Flow Rate 11/15/24 10:00 100 H 24 107/50 L 92 L 11/15/24 09:37 Vapotherm 40 11/15/24 09:00 101 H 23 107/52 L 91 L 11/15/24 08:00 103 H 11/15/24 08:00 97.6 F 105 H 26 H 121/56 L 95 11/15/24 08:00 91 L Vapotherm 40 11/15/24 07:01 106 H 28 H 119/68 95 11/15/24 06:58 CPAP 70 11/15/24 06:28 91 H 11/15/24 06:28 92 H 11/15/24 06:28 97 BiPAP 11/15/24 06:25 11/15/24 06:00 90 20 112/59 L 95 CPAP 11/15/24 05:00 CPAP 11/15/24 05:00 93 H 20 101/53 L 96 CPAP 11/15/24 04:00 96 H 11/15/24 04:00 95 CPAP 11/15/24 04:00 98.2 F 97 H 20 118/58 L 95 CPAP 11/15/24 03:00 100 H 18 109/56 L 94 L CPAP 11/15/24 03:00 CPAP 11/15/24 02:34 11/15/24 02:00 101 H 27 H 105/62 L 95 11/15/24 01:45 101/55 L 11/15/24 01:45 111 H 25 H 95 11/15/24 01:30 109 H 26 H 95 11/15/24 01:30 118/56 L 11/15/24 01:16 112 H 24 89 L 11/15/24 01:16 112/64 11/15/24 01:00 107 H 27 H 111/54 L 95 11/15/24 01:00 CPAP 11/15/24 00:45 107 H 27 H 94 L 11/15/24 00:45 113/56 L 11/15/24 00:30 114 H 27 H 97 11/15/24 00:30 115/64 11/15/24 00:15 105 H 26 H 96 11/15/24 00:15 119/58 L 11/15/24 00:00 93 L CPAP 11/15/24 00:00 102 H 11/15/24 00:00 97.7 F 107 H 26 H 111/61 96 11/14/24 23:48 11/14/24 23:47 88 11/14/24 23:47 85 11/14/24 23:45 107 H 27 H 95 11/14/24 23:45 121/62 11/14/24 23:30 117/64 11/14/24 23:30 110 H 28 H 74 L 11/14/24 23:15 111 H 25 H 86 L 11/14/24 23:15 122/61 11/14/24 23:00 CPAP 11/14/24 23:00 128/63 11/14/24 23:00 106 H 19 90 L 11/14/24 22:45 103 H 21 91 L 11/14/24 22:45 129/63 11/14/24 22:30 100 H 21 92 L 11/14/24 22:30 125/58 L 11/14/24 22:15 126/65 11/14/24 22:15 100 H 22 92 L 11/14/24 22:00 102 H 23 91 L 11/14/24 22:00 122/62 11/14/24 22:00 99 H 18 122/62 90 L Vapotherm 40 11/14/24 21:45 100 H 23 90 L 11/14/24 21:45 125/62 11/14/24 21:30 101 H 23 89 L 11/14/24 21:30 117/61 11/14/24 21:15 107 H 18 89 L 11/14/24 21:15 117/76 11/14/24 21:00 102 H 23 94 L 11/14/24 21:00 120/63 11/14/24 21:00 102 H 20 120/63 94 L Vapotherm 40 11/14/24 20:59 Vapotherm 40 11/14/24 20:45 102 H 10 L 96 11/14/24 20:45 127/66 11/14/24 20:30 102 H 18 94 L 11/14/24 20:30 126/67 11/14/24 20:15 121/70 11/14/24 20:15 105 H 12 96 11/14/24 20:00 95 H 28 H 95 11/14/24 20:00 127/68 11/14/24 20:00 95 Vapotherm 40 11/14/24 20:00 97.6 F 99 H 22 127/68 95 Vapotherm 40 11/14/24 20:00 84 11/14/24 19:31 114 H 24 92 L 11/14/24 19:31 138/82 11/14/24 19:30 108 H 21 93 L 11/14/24 19:00 95 H 26 H 90 L 11/14/24 19:00 115/61 11/14/24 19:00 87 11/14/24 19:00 Vapotherm 40 11/14/24 19:00 96 H 19 115/61 90 L Vapotherm 40 11/14/24 18:50 Vapotherm 94 11/14/24 18:40 87 11/14/24 18:35 Vapotherm 40 11/14/24 18:31 92 H 24 86 L 11/14/24 18:31 112/63 11/14/24 18:30 89 22 91 L 11/14/24 18:00 98 H 22 131/71 92 L Vapotherm 40 11/14/24 17:00 96 H 20 123/67 93 L Vapotherm 40 11/14/24 17:00 Vapotherm 11/14/24 16:00 101 H 24 124/59 L 98 Vapotherm 40 11/14/24 16:00 88 11/14/24 15:51 97 Vapotherm 40 11/14/24 15:00 Vapotherm 11/14/24 15:00 89 22 124/79 97 Vapotherm 40 11/14/24 14:00 85 28 H 96 11/14/24 14:00 85 24 123/62 96 Vapotherm 40 11/14/24 13:43 96 Vapotherm 40 11/14/24 13:30 99 BiPAP 11/14/24 13:17 BiPAP 11/14/24 13:00 88 23 125/59 L 98 Vapotherm 40 11/14/24 12:40 88 19 108/59 L 98 BiPAP 11/14/24 12:30 87 24 117/60 97 BiPAP 11/14/24 12:21 93 H 24 110/56 L 98 BiPAP 11/14/24 12:00 97.4 F L 97 H 22 121/60 98 BiPAP 11/14/24 12:00 85 11/14/24 11:50 89 22 110/57 L 99 BiPAP 11/14/24 11:30 89 20 119/59 L 99 BiPAP 11/14/24 11:18 BiPAP 14 11/14/24 11:10 84 20 132/78 98 BiPAP 11/14/24 11:01 84 20 128/64 99 BiPAP 11/14/24 11:00 86 11/14/24 11:00 88 11/14/24 11:00 93 L CPAP 11/14/24 11:00 11/14/24 10:50 87 19 104/55 L 99 BiPAP 11/14/24 10:40 97 H 17 103/42 L 99 BiPAP FiO2 11/15/24 10:00 11/15/24 09:37 11/15/24 09:00 11/15/24 08:00 11/15/24 08:00 11/15/24 08:00 11/15/24 07:01 11/15/24 06:58 11/15/24 06:28 11/15/24 06:28 11/15/24 06:28 70 11/15/24 06:25 70 11/15/24 06:00 11/15/24 05:00 11/15/24 05:00 11/15/24 04:00 11/15/24 04:00 11/15/24 04:00 11/15/24 03:00 11/15/24 03:00 11/15/24 02:34 70 11/15/24 02:00 11/15/24 01:45 11/15/24 01:45 11/15/24 01:30 11/15/24 01:30 11/15/24 01:16 11/15/24 01:16 11/15/24 01:00 11/15/24 01:00 11/15/24 00:45 11/15/24 00:45 11/15/24 00:30 11/15/24 00:30 11/15/24 00:15 11/15/24 00:15 11/15/24 00:00 11/15/24 00:00 11/15/24 00:00 11/14/24 23:48 70 11/14/24 23:47 11/14/24 23:47 11/14/24 23:45 11/14/24 23:45 11/14/24 23:30 11/14/24 23:30 11/14/24 23:15 11/14/24 23:15 11/14/24 23:00 11/14/24 23:00 11/14/24 23:00 11/14/24 22:45 11/14/24 22:45 11/14/24 22:30 11/14/24 22:30 11/14/24 22:15 11/14/24 22:15 11/14/24 22:00 11/14/24 22:00 11/14/24 22:00 11/14/24 21:45 11/14/24 21:45 11/14/24 21:30 11/14/24 21:30 11/14/24 21:15 11/14/24 21:15 11/14/24 21:00 11/14/24 21:00 11/14/24 21:00 11/14/24 20:59 11/14/24 20:45 11/14/24 20:45 11/14/24 20:30 11/14/24 20:30 11/14/24 20:15 11/14/24 20:15 11/14/24 20:00 11/14/24 20:00 11/14/24 20:00 11/14/24 20:00 11/14/24 20:00 11/14/24 19:31 11/14/24 19:31 11/14/24 19:30 11/14/24 19:00 11/14/24 19:00 11/14/24 19:00 11/14/24 19:00 11/14/24 19:00 11/14/24 18:50 11/14/24 18:40 11/14/24 18:35 11/14/24 18:31 11/14/24 18:31 11/14/24 18:30 11/14/24 18:00 11/14/24 17:00 11/14/24 17:00 11/14/24 16:00 11/14/24 16:00 11/14/24 15:51 11/14/24 15:00 11/14/24 15:00 11/14/24 14:00 11/14/24 14:00 11/14/24 13:43 11/14/24 13:30 70 11/14/24 13:17 11/14/24 13:00 11/14/24 12:40 70 11/14/24 12:30 70 11/14/24 12:21 70 11/14/24 12:00 70 11/14/24 12:00 11/14/24 11:50 70 11/14/24 11:30 70 11/14/24 11:18 11/14/24 11:10 70 11/14/24 11:01 70 11/14/24 11:00 11/14/24 11:00 11/14/24 11:00 70 11/14/24 11:00 11/14/24 10:50 70 11/14/24 10:40 70 Intake and Output 11/14/24 11/15/24 11/15/24 23:59 07:59 15:59 Intake Total 729.423 / 1917.100 220 / 340 120 / 340 Output Total 465 / 2385 1175 / 1175 Balance 264.423 / -467.900 -955 / -835 120 / -835 Intake: Intake, Oral Amount 465 / 585 120 / 240 120 / 240 Intake, Total IV Amount 264.423 / 1332.100 100 / 100 Cefepime HCl 2 gm In 0.9 % 100 / 100 Sodium Chloride 100 ml @ 200 mls/hr IV Q12H VARSHA Rx#:[id number] Norepinephrine Bitartrate/D5w 8 14.423 / 132.100 mg In 250 ml @ 2 MCG/MIN 3.75 mls/hr IV .Q24H VARSHA Rx#: [id number] Vancomycin/Water For Inj (Peg) 250 / 250 1.25 gm In 250 ml @ 125 mls/hr IV Q24H [facility]SHA Rx#:[id number] Output: Output, Urine Amount 265 / 1435 250 / 250 Output, Urine Amount (Catheter) 200 / 950 925 / 925 Sims 200 / 950 925 / 925 Other: Number of Unmeasured Voids 0 0 Weight 77.111 kg Patient Weight 11/15/24 23:59 Weight 77.111 kg Laboratory Results - last 24 hr 11/14/24 12:51: Urine Color Yellow, Urine Appearance Sl cloudy, Urine pH 5.5, Ur Specific [place] 1.015, Urine Protein Trace, Urine Glucose (UA) Negative, Urine Ketones Trace, Urine Blood 3+ A, Urine Nitrate Negative, Urine Bilirubin Negative, Urine Urobilinogen 0.2, Ur Leukocyte Esterase Negative, Urine RBC 3-5, Urine WBC None, Ur Squamous Epith Cells Occasional, Urine Bacteria 1+, Fine Granular Casts 3-5 11/14/24 13:00: Vancomycin Trough 12.8 H 11/15/24 05:41: WBC 19.8 H, RBC 3.18 L, Hgb 9.9 L, Hct 30.4 L, MCV 95.6 H, MCH 31.1, MCHC 32.6, RDW 15.7, Plt Count 195, MPV 9.4, Neut % (Auto) 94.7 H, Lymph % (Auto) 2.4 L, [place] % (Auto) 2.0, Eos % (Auto) 0.0 L, Baso % (Auto) 0.1, Neut # (Auto) 18.7 H, Lymph # (Auto) 0.5 L, [place] # (Auto) 0.4, Eos # (Auto) 0.0, Baso # (Auto) 0.0, Total Counted 100, Neutrophils % (Manual) 97 H, Lymphocytes % (Manual) 2 L, Monocytes % (Manual) 1 L, Platelet Estimate Normal, RBC Morphology Normal, ESR 91 H, Sodium 139, Potassium 3.3 L, Chloride 113 H, Carbon Dioxide 17 L, Anion Gap 12.3, BUN 28 H, Creatinine 1.70 H, Estimated Creat Clear 37, Estimated GFR 39 L, Est GFR ( Amer) 47 L, Glucose 133 H D, Calcium 8.8, Magnesium 2.5 H, Total Bilirubin 1.2, AST 69 H, ALT 31, Alkaline Phosphatase 124, C-Reactive Protein 326.2 H, Total Protein 6.2 L, Albumin 3.2 L, Globulin 3.0, Albumin/Globulin Ratio 1.1 11/15/24 06:27: VBG pH 7.39, VBG pCO2 30.0 L, VBG pO2 82.6 H, VBG HCO3 17.8 L, VBG Total CO2 18.7 L, VBG O2 Saturation 96.3 H, VBG Base Excess -7.2 L, VBG Lactic Acid 1.1 I & O for Labs for Last 24 Hours: Intake & Output 11/12/24 11/13/24 11/14/24 11/15/24 23:59 23:59 23:59 23:59 Intake Total 950 / 950 1802.85 / 1802.85 1797.100 / 1917.100 340 / 340 Output Total 525 / 625 650 / 650 1635 / 2385 1175 / 1175 Balance 425 / 325 1152.85 / 1152.85 162.100 / -467.900 -835 / -835 Weight 76.402 kg 77.593 kg 77.111 kg 77.111 kg Microbiology Reports for the Last 24 Hours: Microbiology 11/12/24 16:06 Sputum - Expectorated Sputum Gram Stain - Final 11/12/24 16:06 Sputum - Expectorated Sputum Sputum Culture - Final The patient's infection will respond to the chosen ABx?: Yes Is the patient receiving the right drug, dose, and route?: Yes Could a more targeted ABx be ordered?: No (WBC 19.8K. ON SOLUMEDROL 40 MG BID.)
--- NOTE | 2024-11-15 10:35 | PC.NURSE ---
Patient o2 sats noted to be in the low 90's. pt vapotherm cannula moved to his mouth as he is breathing through his mouth. once in his mouth pt would close his lips around tubing and begin breathing through his nose and sats dropped to the upper 80's. cannula moved back to his nose and he began breathing through his mouth again and sats again fell to the upper 80's. pt also complained to staff that he felt like he was getting tired with his breathing. pt was placed back on bipap at this time by RT at 1035 to give patient a break.
--- NOTE | 2024-11-15 11:25 | EXP.ACUTE.PN ---
Subjective *Date: 11/15/24 *Time: 13:30 Interval history: Went back on BiPAP overnight. Back to Vapotherm this morning. Patient interactive and alert x 3. Family at bedside. Appears fatigued but tolerating Vapotherm with sats in the low 90s. Afebrile. Repeat chest x-ray obtained this morning. Medical Exam Vital signs and Labs for Last 24 Hours: Vital Signs Temp Pulse Resp BP Pulse Ox O2 Del Method O2 Flow Rate 11/15/24 11:00 BiPAP 11/15/24 11:00 101 H 25 H 106/49 L 93 L BiPAP 11/15/24 10:44 95 H 27 H 108/53 L 94 L BiPAP 11/15/24 10:32 96 H 28 H 96/50 L 88 L Vapotherm 40 11/15/24 10:00 100 H 24 107/50 L 92 L 11/15/24 09:37 Vapotherm 40 11/15/24 09:00 101 H 23 107/52 L 91 L 11/15/24 08:00 103 H 11/15/24 08:00 97.6 F 105 H 26 H 121/56 L 95 11/15/24 08:00 91 L Vapotherm 40 11/15/24 07:01 106 H 28 H 119/68 95 11/15/24 06:58 CPAP 70 11/15/24 06:28 91 H 11/15/24 06:28 92 H 11/15/24 06:28 97 BiPAP 11/15/24 06:25 11/15/24 06:00 90 20 112/59 L 95 CPAP 11/15/24 05:00 CPAP 11/15/24 05:00 93 H 20 101/53 L 96 CPAP 11/15/24 04:00 96 H 11/15/24 04:00 95 CPAP 11/15/24 04:00 98.2 F 97 H 20 118/58 L 95 CPAP 11/15/24 03:00 100 H 18 109/56 L 94 L CPAP 11/15/24 03:00 CPAP 11/15/24 02:34 11/15/24 02:00 101 H 27 H 105/62 L 95 11/15/24 01:45 101/55 L 11/15/24 01:45 111 H 25 H 95 11/15/24 01:30 109 H 26 H 95 11/15/24 01:30 118/56 L 11/15/24 01:16 112 H 24 89 L 11/15/24 01:16 112/64 11/15/24 01:00 107 H 27 H 111/54 L 95 11/15/24 01:00 CPAP 11/15/24 00:45 107 H 27 H 94 L 11/15/24 00:45 113/56 L 11/15/24 00:30 114 H 27 H 97 11/15/24 00:30 115/64 11/15/24 00:15 105 H 26 H 96 11/15/24 00:15 119/58 L 11/15/24 00:00 93 L CPAP 11/15/24 00:00 102 H 11/15/24 00:00 97.7 F 107 H 26 H 111/61 96 11/14/24 23:48 11/14/24 23:47 88 11/14/24 23:47 85 11/14/24 23:45 107 H 27 H 95 11/14/24 23:45 121/62 11/14/24 23:30 117/64 11/14/24 23:30 110 H 28 H 74 L 11/14/24 23:15 111 H 25 H 86 L 11/14/24 23:15 122/61 11/14/24 23:00 CPAP 11/14/24 23:00 128/63 11/14/24 23:00 106 H 19 90 L 11/14/24 22:45 103 H 21 91 L 11/14/24 22:45 129/63 11/14/24 22:30 100 H 21 92 L 11/14/24 22:30 125/58 L 11/14/24 22:15 126/65 11/14/24 22:15 100 H 22 92 L 11/14/24 22:00 102 H 23 91 L 11/14/24 22:00 122/62 11/14/24 22:00 99 H 18 122/62 90 L Vapotherm 40 11/14/24 21:45 100 H 23 90 L 11/14/24 21:45 125/62 11/14/24 21:30 101 H 23 89 L 11/14/24 21:30 117/61 11/14/24 21:15 107 H 18 89 L 11/14/24 21:15 117/76 11/14/24 21:00 102 H 23 94 L 11/14/24 21:00 120/63 11/14/24 21:00 102 H 20 120/63 94 L Vapotherm 40 11/14/24 20:59 Vapotherm 40 11/14/24 20:45 102 H 10 L 96 11/14/24 20:45 127/66 11/14/24 20:30 102 H 18 94 L 11/14/24 20:30 126/67 11/14/24 20:15 121/70 11/14/24 20:15 105 H 12 96 11/14/24 20:00 95 H 28 H 95 11/14/24 20:00 127/68 11/14/24 20:00 95 Vapotherm 40 11/14/24 20:00 97.6 F 99 H 22 127/68 95 Vapotherm 40 11/14/24 20:00 84 11/14/24 19:31 114 H 24 92 L 11/14/24 19:31 138/82 11/14/24 19:30 108 H 21 93 L 11/14/24 19:00 95 H 26 H 90 L 11/14/24 19:00 115/61 11/14/24 19:00 87 11/14/24 19:00 Vapotherm 40 11/14/24 19:00 96 H 19 115/61 90 L Vapotherm 40 11/14/24 18:50 Vapotherm 94 11/14/24 18:40 87 11/14/24 18:35 Vapotherm 40 11/14/24 18:31 92 H 24 86 L 11/14/24 18:31 112/63 11/14/24 18:30 89 22 91 L 11/14/24 18:00 98 H 22 131/71 92 L Vapotherm 40 11/14/24 17:00 96 H 20 123/67 93 L Vapotherm 40 11/14/24 17:00 Vapotherm 11/14/24 16:00 101 H 24 124/59 L 98 Vapotherm 40 11/14/24 16:00 88 11/14/24 15:51 97 Vapotherm 40 11/14/24 15:00 Vapotherm 11/14/24 15:00 89 22 124/79 97 Vapotherm 40 11/14/24 14:00 85 28 H 96 11/14/24 14:00 85 24 123/62 96 Vapotherm 40 11/14/24 13:43 96 Vapotherm 40 11/14/24 13:30 99 BiPAP 11/14/24 13:17 BiPAP 11/14/24 13:00 88 23 125/59 L 98 Vapotherm 40 11/14/24 12:40 88 19 108/59 L 98 BiPAP 11/14/24 12:30 87 24 117/60 97 BiPAP 11/14/24 12:21 93 H 24 110/56 L 98 BiPAP 11/14/24 12:00 97.4 F L 97 H 22 121/60 98 BiPAP 11/14/24 12:00 85 11/14/24 11:50 89 22 110/57 L 99 BiPAP 11/14/24 11:30 89 20 119/59 L 99 BiPAP FiO2 11/15/24 11:00 11/15/24 11:00 70 11/15/24 10:44 70 11/15/24 10:32 100 11/15/24 10:00 11/15/24 09:37 11/15/24 09:00 11/15/24 08:00 11/15/24 08:00 11/15/24 08:00 11/15/24 07:01 11/15/24 06:58 11/15/24 06:28 11/15/24 06:28 11/15/24 06:28 70 11/15/24 06:25 70 11/15/24 06:00 11/15/24 05:00 11/15/24 05:00 11/15/24 04:00 11/15/24 04:00 11/15/24 04:00 11/15/24 03:00 11/15/24 03:00 11/15/24 02:34 70 11/15/24 02:00 11/15/24 01:45 11/15/24 01:45 11/15/24 01:30 11/15/24 01:30 11/15/24 01:16 11/15/24 01:16 11/15/24 01:00 11/15/24 01:00 11/15/24 00:45 11/15/24 00:45 11/15/24 00:30 11/15/24 00:30 11/15/24 00:15 11/15/24 00:15 11/15/24 00:00 11/15/24 00:00 11/15/24 00:00 11/14/24 23:48 70 11/14/24 23:47 11/14/24 23:47 11/14/24 23:45 11/14/24 23:45 11/14/24 23:30 11/14/24 23:30 11/14/24 23:15 11/14/24 23:15 11/14/24 23:00 11/14/24 23:00 11/14/24 23:00 11/14/24 22:45 11/14/24 22:45 11/14/24 22:30 11/14/24 22:30 11/14/24 22:15 11/14/24 22:15 11/14/24 22:00 11/14/24 22:00 11/14/24 22:00 11/14/24 21:45 11/14/24 21:45 11/14/24 21:30 11/14/24 21:30 11/14/24 21:15 11/14/24 21:15 11/14/24 21:00 11/14/24 21:00 11/14/24 21:00 11/14/24 20:59 11/14/24 20:45 11/14/24 20:45 11/14/24 20:30 11/14/24 20:30 11/14/24 20:15 11/14/24 20:15 11/14/24 20:00 11/14/24 20:00 11/14/24 20:00 11/14/24 20:00 11/14/24 20:00 11/14/24 19:31 11/14/24 19:31 11/14/24 19:30 11/14/24 19:00 11/14/24 19:00 11/14/24 19:00 11/14/24 19:00 11/14/24 19:00 11/14/24 18:50 11/14/24 18:40 11/14/24 18:35 11/14/24 18:31 11/14/24 18:31 11/14/24 18:30 11/14/24 18:00 11/14/24 17:00 11/14/24 17:00 11/14/24 16:00 11/14/24 16:00 11/14/24 15:51 11/14/24 15:00 11/14/24 15:00 11/14/24 14:00 11/14/24 14:00 11/14/24 13:43 11/14/24 13:30 70 11/14/24 13:17 11/14/24 13:00 11/14/24 12:40 70 11/14/24 12:30 70 11/14/24 12:21 70 11/14/24 12:00 70 11/14/24 12:00 11/14/24 11:50 70 11/14/24 11:30 70 Intake and Output 11/14/24 11/15/24 11/15/24 23:59 07:59 15:59 Intake Total 729.423 / 1917.100 220 / 340 120 / 340 Output Total 465 / 2385 1175 / 1310 135 / 1310 Balance 264.423 / -467.900 -955 / -970 -15 / -970 Intake: Intake, Oral Amount 465 / 585 120 / 240 120 / 240 Intake, Total IV Amount 264.423 / 1332.100 100 / 100 Cefepime HCl 2 gm In 0.9 % 100 / 100 Sodium Chloride 100 ml @ 200 mls/hr IV Q12H VARSHA Rx#:[id number] Norepinephrine Bitartrate/D5w 8 14.423 / 132.100 mg In 250 ml @ 2 MCG/MIN 3.75 mls/hr IV .Q24H VARSHA Rx#: [id number] Vancomycin/Water For Inj (Peg) 250 / 250 1.25 gm In 250 ml @ 125 mls/hr IV Q24H VARSHA Rx#:[id number] Output: Output, Urine Amount 265 / 1435 250 / 385 135 / 385 Output, Urine Amount (Catheter) 200 / 950 925 / 925 Sims 200 / 950 925 / 925 Other: Number of Unmeasured Voids 0 0 Weight 77.111 kg Patient Weight 11/15/24 23:59 Weight 77.111 kg Laboratory Results - last 24 hr 11/14/24 12:51: Urine Color Yellow, Urine Appearance Sl cloudy, Urine pH 5.5, Ur Specific [place] 1.015, Urine Protein Trace, Urine Glucose (UA) Negative, Urine Ketones Trace, Urine Blood 3+ A, Urine Nitrate Negative, Urine Bilirubin Negative, Urine Urobilinogen 0.2, Ur Leukocyte Esterase Negative, Urine RBC 3-5, Urine WBC None, Ur Squamous Epith Cells Occasional, Urine Bacteria 1+, Fine Granular Casts 3-5 11/14/24 13:00: Vancomycin Trough 12.8 H 11/15/24 05:41: WBC 19.8 H, RBC 3.18 L, Hgb 9.9 L, Hct 30.4 L, MCV 95.6 H, MCH 31.1, MCHC 32.6, RDW 15.7, Plt Count 195, MPV 9.4, Neut % (Auto) 94.7 H, Lymph % (Auto) 2.4 L, [place] % (Auto) 2.0, Eos % (Auto) 0.0 L, Baso % (Auto) 0.1, Neut # (Auto) 18.7 H, Lymph # (Auto) 0.5 L, [place] # (Auto) 0.4, Eos # (Auto) 0.0, Baso # (Auto) 0.0, Total Counted 100, Neutrophils % (Manual) 97 H, Lymphocytes % (Manual) 2 L, Monocytes % (Manual) 1 L, Platelet Estimate Normal, RBC Morphology Normal, ESR 91 H, Sodium 139, Potassium 3.3 L, Chloride 113 H, Carbon Dioxide 17 L, Anion Gap 12.3, BUN 28 H, Creatinine 1.70 H, Estimated Creat Clear 37, Estimated GFR 39 L, Est GFR ( Amer) 47 L, Glucose 133 H D, Calcium 8.8, Magnesium 2.5 H, Total Bilirubin 1.2, AST 69 H, ALT 31, Alkaline Phosphatase 124, C-Reactive Protein 326.2 H, Total Protein 6.2 L, Albumin 3.2 L, Globulin 3.0, Albumin/Globulin Ratio 1.1 11/15/24 06:27: VBG pH 7.39, VBG pCO2 30.0 L, VBG pO2 82.6 H, VBG HCO3 17.8 L, VBG Total CO2 18.7 L, VBG O2 Saturation 96.3 H, VBG Base Excess -7.2 L, VBG Lactic Acid 1.1 I & O for Labs for Last 24 Hours: Intake & Output 11/12/24 11/13/24 11/14/24 11/15/24 23:59 23:59 23:59 23:59 Intake Total 950 / 950 1802.85 / 1802.85 1797.100 / 1917.100 340 / 340 Output Total 525 / 625 650 / 650 1635 / 2385 1310 / 1310 Balance 425 / 325 1152.85 / 1152.85 162.100 / -467.900 -970 / -970 Weight 76.402 kg 77.593 kg 77.111 kg 77.111 kg Microbiology Reports for the Last 24 Hours: Microbiology 11/12/24 16:06 Sputum - Expectorated Sputum Gram Stain - Final 11/12/24 16:06 Sputum - Expectorated Sputum Sputum Culture - Final Constitutional: Present moderate distress, average body habitus, chronically ill appearing and cooperative Head: Present atraumatic and normocephalic ENT: Present normal exam Respiratory: Present accessory muscle use, prolonged expiratory phase, respiratory distress, wheezes, crackles (Most prominent throughout left lung field in the back; present in right lower lung field) and diminished air movement; Absent rhonchi Cardiac: Present Regular Rhythm and Tachycardia GI: Present soft and normal bowel sounds; Absent distention or tenderness Extremities: Present normal inspection and full ROM; Absent edema Skin: Present intact; Absent erythema Neuro: Present Grossly Intact, alert, awake, oriented x 3 and moves all extremities Comment:: Decreased sensation in feet, chronic Assessment and Plan *Assessment and plan (1) Acute respiratory failure with hypoxia: Status: Acute Category: Medical Code(s): J96.01 - Acute respiratory failure with hypoxia (2) Pneumonia: Status: Acute Qualifiers: Laterality: left Lung location: lower lobe of lung Pneumonia type: due to unspecified organism Qualified Code(s): J18.9 - Pneumonia, unspecified organism Category: Medical Code(s): J18.9 - Pneumonia, unspecified organism (3) Enterovirus infection: Status: Acute Category: Medical Code(s): B34.1 - Enterovirus infection, unspecified (4) Asthma: Status: Acute Category: Medical Code(s): J45.909 - Unspecified asthma, uncomplicated (5) Polyneuropathy: Status: Chronic Category: Medical Code(s): G62.9 - Polyneuropathy, unspecified (6) Dementia: Problem Comment: Slowly progressive memory deficit currently on Namenda 10 mg p.o. twice daily. BMI 22.8, weight loss, mild anorexia. He is not a candidate for donezepil at this time Status: Chronic Qualifiers: Dementia behavioral or psychological symptom: without behavioral, psychotic, or mood disturbance or anxiety Dementia severity: mild Dementia type: unspecified type Qualified Code(s): F03.A0 - Unspecified dementia, mild, without behavioral disturbance, psychotic disturbance, mood disturbance, and anxiety Category: Medical Code(s): F03.90 - Unspecified dementia, unspecified severity, without behavioral disturbance, psychotic disturbance, mood disturbance, and anxiety (7) COPD (chronic obstructive pulmonary disease): Status: Chronic Qualifiers: COPD type: emphysema Emphysema type: centrilobular Qualified Code(s): J43.2 - Centrilobular emphysema Category: Medical Code(s): J44.9 - Chronic obstructive pulmonary disease, unspecified (8) Neuropathy: Problem Comment: Initial diagnosis at [facility]?Dr. Carrion. 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 Brisk reflexes likely due to cervical spondylosis without myelopathy and B12 deficiency 09/30/2023: Right hand weakness with muscle wasting involving intrinsic muscles, (ulnar nerve/C8-T1 dermatome distribution) Status: Chronic Category: Medical Code(s): G62.9 - Polyneuropathy, unspecified (9) ILD (interstitial lung disease): Status: Chronic Category: Medical Code(s): J84.9 - Interstitial pulmonary disease, unspecified (10) Klebsiella pneumoniae pneumonia: Status: Acute Category: Medical Code(s): J15.0 - Pneumonia due to Klebsiella pneumoniae Anshu Magdaleno is a 84-year-old male with medical history significant for CAD with 8 stents (follows with [facility] [place]), asthma on room air, anxiety/depression, complex partial seizures, dementia who unfortunately presented back to the ED shortly after discharge with shortness of breath. He was discharged in stable condition for treatment of aspiration pneumonia, on room air without respiratory distress and did well at home for a few hours but began feeling short of breath, found to be hypoxic in the ED. Respiratory panel positive for rhino/entero-virus. Met for severe sepsis with tachycardia, leukocytosis, identified infection (pneumonia) with endorgan damage in the setting of respiratory failure. # Septic shock, improved #severe sepsis, present on admission #Acute hypoxic respiratory failure #Aspiration pneumonia, Klebsiella pneumonia #Rhino/entero-virus viral pneumonia #Hemoptysis #Asthma ? Sputum culture was positive on 11/10 for Klebsiella. Comprehensive respiratory panel positive 11/12 for rhino/enterovirus - Patient having septic shock necessitating norepinephrine for hypotension. Continue Levophed for goal MAP greater than 65 as needed, weaned off Levophed at approximately 8 PM on 11/14. Appears stable this morning with MAP greater than 65. -Chest x-ray obtained today, per my review shows effusion on right side. Prominent right fissure. Will attempt diuresis with Lasix 40 mg IV once. -Continue BiPAP overnight as needed. Vapotherm during the day. Goal sats greater 90%. - Patient amenable to intubation if necessitates due to worsening respiratory failure - Continue mechanical soft for the time being. - White count stable at 19.8. Hemoglobin 9.9. Platelets 195. - CRP 326, registered at >300 yesterday, ERCP 91. Kidney function stable with BUN 28, creatinine 1.7. Calcium 8.8. - Discussed case with pulmonology, recommend continuing broad-spectrum antibiotics of vancomycin and cefepime pending final culture results and MRSA PCR. - Continue steroids with methylprednisolone 40 mg IV twice daily - Blood and sputum cultures pending - DuoNebs every 6 hours scheduled and Pulmicort twice daily #History of CAD with stents #Hypertension ? Extensive coronary disease, and 8 stents in the past. Follows with [facility] [place]. ? ECHO 11/10/2024 with normal biventricular systolic function. BNP 742, diuresed x 1 today as stated above. ? Cardiology consulted, s/p PCI with nonocclusive coronary arteries. ? Continue home aspirin, statin. ? Entresto held due to soft pressures during admission. #Anxiety/depression: Continue home desvenlafaxine, buspirone, trazodone. #Complex partial seizures: Continue home lamotrigine 150 mg twice daily. #Dementia: Continue home memantine. ICU/Critical care attestation This patient is critically ill with 35 minutes devoted solely to this patient managing life/organ supporting interventions that required physician assessment. This includes time spent making adjustments in ventilator settings, IV fluid administration, titration of pressors, adjustments of medications, discussion of patient with consultants and other care providers as well as updating patient and/or family (if patient by virtue of his/her condition is unable to participate in decision making). This does not include time spent performing separately billed procedures. Time is not concurrent with that of other providers.
[2024-11-15] MEDS: CEFEPIME HCL 2 GM in 0.9 % SODIUM CHLORIDE 100 ML IV (11:51)
[2024-11-15] MEDS: FUROSEMIDE 40MG/4ML VIAL 40 MG IV (11:52)
[2024-11-15 12:09] LABS: Cortisol,AM 143.0 ug/dL (6.2-19.4)
[2024-11-15] MEDS: VANCOMYCIN/WATER FOR INJ (PEG) 1.25 GM/250 ML PIGGYBACK IV (12:50)
--- NOTE | 2024-11-15 17:26 | PC.NURSE ---
1720 pt transitioned back to Vapotherm 40/100 per request.
[2024-11-15] MEDS: LATANOPROST 0.005% OPTH SOLN 2.5ML OP (20:28)
[2024-11-15] MEDS: ATORVASTATIN 40MG TABLET 40 MG PO (20:29)
[2024-11-15] MEDS: GABAPENTIN 300MG CAPSULE 300 MG PO (20:29)
[2024-11-15] MEDS: MONTELUKAST SODIUM 10MG TAB 10 MG PO (20:29)
[2024-11-15] MEDS: TRAZODONE 50MG TABLET 100 MG PO (22:24)
--- NOTE | 2024-11-15 23:03 | XR_ITS ---
PROCEDURE INFORMATION: Exam: XR Chest Exam date and time: 11/15/2024 11:04 PM Age: 84 years old Clinical indication: Other: Low o2 TECHNIQUE: Imaging protocol: Radiologic exam of the chest. Views: 1 view. COMPARISON: CR XR CHEST PORTABLE 11/15/2024 9:13 AM FINDINGS: Lungs: Diffuse predominantly interstitial infiltrates throughout the bilateral mid to lower lungs appear similar to the earlier study. Infiltrates remain increased when compared to study of 4 days previous. Pleural spaces: Unremarkable. No pleural effusion. No pneumothorax. Heart/Mediastinum: Unremarkable. No cardiomegaly. Bones/joints: Unremarkable. IMPRESSION: Stable diffuse bilateral pulmonary infiltrates.
[2024-11-15 23:12] LABS: ABG HCO3 16.8 mmhg (22.0-26.0); ABG PCO2 28.0 mmhg (35.0-45.0); ABG PH 7.40 mmol/L (7.35-7.45); ABG PO2 52.3 mmhg (80-100); ABG TCO2 17.7 mmhg (23-27)
[2024-11-15 23:13] LABS: Source rr
--- NOTE | 2024-11-15 23:23 | PC.NURSE ---
Pts O2 sat dropped to 80% on BIPAP 60%. Pt given 100% FIO2 on BIPAP for 2 mins. O2 increased to mid 80's. Dr. Denis notified of pts O2 sat decreasing on BIPAP. Dr Denis to bedside. Orders placed for stat chest x-ray and stat ABG. BIPAP settings changed to rate of 20 and FIO2 100%. Verbal order received to recheck ABG in 2 hours.
--- NOTE | 2024-11-15 23:45 | PC.NURSE ---
Dr Campo called asking about pt. Update given. Verbal orders received for CBC, CRP, CMP stat and Solu-Medrol 60mg IV once now.
[2024-11-16] VITALS (51 sets, daily range): BP systolic 93–143; BP diastolic 43–72; PULSE 80–133; RESP 17–33; TEMP 36.2–36.8; O2SAT 85–99; BMI 23.3
[2024-11-16 00:02] LABS: Hematocrit 33.5 % (42.0-52.0); Immature Granulocytes % 0.8 %; Mean Corpuscular HGB Conc 32.5 g/dL (31.8-35.4); Mean Corpuscular Hemoglobin 31.3 pg (27.0-31.2); Mean Corpuscular Volume 96.3 fl (80-94); Nucleated Red Blood Cells % 0 %; Platelet Count 193 K/mm3 (142-424); Red Blood Count 3.48 M/mm3 (4.60-6.20); Red Cell Distribution Width-SD 56.4 fL; White Blood Count 23.1 K/mm3 (4.8-10.8)
[2024-11-16] MEDS: METHYLPREDNISOLONE SOD SUCC 125MG VIAL 60 MG IV (00:07)
[2024-11-16 00:10] LABS: Hemoglobin 11.2 g/dL (14.1-18.0)
[2024-11-16] MEDS: LEVOFLOXACIN/D5W 750 MG/150 ML 750 MG/150 ML PIGGYBACK 100 MG IV (00:14)
[2024-11-16] MEDS: IPRATROPIUM/ALBUTEROL 3 ML NEB IH ×2 (00:15→06:30)
--- NOTE | 2024-11-16 00:18 | P.PN_ITS ---
Subjective *Date: 11/15/24 *Time: 11:55 Interval history: Called to evaluate patient overnight for respiratory distress. Patient extremely well-known to me and currently being treated for COPD related respiratory failure with hypoxia on BiPAP/Vapotherm. Patient suffering from more frequent desaturation episodes overnight. Patient also tachypneic with decreased awareness. ABG done on BiPAP FiO2 60% showing pH 7.397, pCO2 28, pO2 52.3. Stat potable chest x-ray shows bibasilar airspace disease left greater than sign >>right. Placed patient on 100% FiO2 BiPAP. Change patient's respiratory rate on BiPAP from 24-20 since patient's pCO2 low on ABG. Patient more comfortable after BiPAP oxygen increased, more awake, gesturing and interacting with /daughter in the room, with decreased respiratory rate and increased oxygenation. Plan to recheck ABG 2 hours after previous ABG. Also spoke with drier transfer car operator overnight about patient. Low threshold to intubate patient if patient shows further clinical deterioration. Additional IV glucocorticoids administered overnight per pulmonology guidance. Also broadened out patient's antibiotic coverage with addition of Levaquin 750 IV every 24. I spoke with both patient and patient's daughter at bedside about patient's prognosis multiple times overnight. Exam Data for Last 24 hours Vital signs and Labs for Last 24 Hours: Temp Pulse Resp BP Pulse Ox O2 Del Method O2 Flow Rate 97.6 F 98 H 30 H 115/58 L 88 L BiPAP 40 11/15/24 20:00 11/16/24 00:16 11/15/24 23:00 11/15/24 23:00 11/15/24 23:00 11/15/24 22:30 11/15/24 21:00 FiO2 60 11/15/24 22:30 Laboratory Results - last 24 hr 11/14/24 06:50: Cortisol AM Sample 143.0 H 11/15/24 05:41: WBC 19.8 H, RBC 3.18 L, Hgb 9.9 L, Hct 30.4 L, MCV 95.6 H, MCH 31.1, MCHC 32.6, RDW 15.7, Plt Count 195, MPV 9.4, Neut % (Auto) 94.7 H, Lymph % (Auto) 2.4 L, [place] % (Auto) 2.0, Eos % (Auto) 0.0 L, Baso % (Auto) 0.1, Neut # (Auto) 18.7 H, Lymph # (Auto) 0.5 L, [place] # (Auto) 0.4, Eos # (Auto) 0.0, Baso # (Auto) 0.0, Total Counted 100, Neutrophils % (Manual) 97 H, Lymphocytes % (Manual) 2 L, Monocytes % (Manual) 1 L, Platelet Estimate Normal, RBC Morphology Normal, ESR 91 H, Sodium 139, Potassium 3.3 L, Chloride 113 H, Carbon Dioxide 17 L, Anion Gap 12.3, BUN 28 H, Creatinine 1.70 H, Estimated Creat Clear 37, Estimated GFR 39 L, Est GFR ( Amer) 47 L, Glucose 133 H D, Calcium 8.8, Magnesium 2.5 H, Total Bilirubin 1.2, AST 69 H, ALT 31, Alkaline Phosphatase 124, C-Reactive Protein 326.2 H, Total Protein 6.2 L, Albumin 3.2 L, Globulin 3.0, Albumin/Globulin Ratio 1.1 11/15/24 06:27: VBG pH 7.39, VBG pCO2 30.0 L, VBG pO2 82.6 H, VBG HCO3 17.8 L, VBG Total CO2 18.7 L, VBG O2 Saturation 96.3 H, VBG Base Excess -7.2 L, VBG Lactic Acid 1.1 11/15/24 23:03: Specimen Source rr, O2 % 60, Hair Test y, Vent Rate 24 11/15/24 23:54: WBC 23.1 H*, RBC 3.48 L, Hgb 11.2 L D, Hct 33.5 L, MCV 96.3 H, MCH 31.3 H, MCHC 32.5, RDW 15.9, Plt Count 193, MPV 9.5, Neut % (Auto) 94.9 H, Lymph % (Auto) 2.1 L, [place] % (Auto) 2.1, Eos % (Auto) 0.0 L, Baso % (Auto) 0.1, Neut # (Auto) 22.0 H, Lymph # (Auto) 0.5 L, [place] # (Auto) 0.5, Eos # (Auto) 0.0, Baso # (Auto) 0.0 I & O for Last 24 hours: Intake & Output 11/13/24 11/14/24 11/15/24 11/16/24 23:59 23:59 23:59 23:59 Intake Total 1802.85 / 1802.85 1797.100 / 1917.100 690 / 690 Output Total 650 / 650 1635 / 2385 2865 / 2865 Balance 1152.85 / 1152.85 162.100 / -467.900 -2175 / -2175 Weight 77.593 kg 77.111 kg 77.111 kg Microbiology Reports for the Last 24 Hours: Microbiology 11/11/24 23:27 Blood Blood Culture - Preliminary NO GROWTH AFTER 4 DAYS 11/11/24 23:27 Blood Blood Culture - Preliminary NO GROWTH AFTER 4 DAYS Constitutional Constitutional: moderate distress, average body habitus, chronically ill appearing and diaphoretic *Routine HEENT Exam Head: Present normocephalic Eye: Present EOMI ENT: Present mucous membranes dry Comments: Some nasal flaring noted during my bedside evaluation. This improved after patient's FiO2 increased to 100%. *Routine Neck Exam Neck: Present supple and full ROM *Routine Respiratory Exam Respiratory: Present decreased breath sounds, respiratory distress, diminished air movement and able to speak in complete sentences Comments: Tachypneic, rapid breathing pattern, tight air movement *Routine Cardiovascular Exam Cardiovascular: Present tachycardia *Routine Abdominal Exam Abdominal: Present soft and normoactive bowel sounds *Routine Extremities Exam Extremities: Present normal capillary refill *Routine Skin Exam Skin: Present intact *Routine Neurological Exam Neurological: Present alert and oriented X3 Assessment and Plan *Assessment and plan (1) Pneumonia: Status: Acute Qualifiers: Laterality: left Lung location: lower lobe of lung Pneumonia type: due to unspecified organism Qualified Code(s): J18.9 - Pneumonia, unspecified organism Category: Medical Code(s): J18.9 - Pneumonia, unspecified organism (2) Klebsiella pneumoniae pneumonia: Status: Acute Category: Medical Code(s): J15.0 - Pneumonia due to Klebsiella pneumoniae (3) Enterovirus infection: Status: Acute Category: Medical Code(s): B34.1 - Enterovirus infection, unspecified (4) Rhinovirus infection: Status: Acute Category: Medical Code(s): B34.8 - Other viral infections of unspecified site (5) Acute respiratory failure with hypoxia: Status: Acute Category: Medical Code(s): J96.01 - Acute respiratory failure with hypoxia (6) Respiratory failure with hypoxia: Status: Acute Qualifiers: Chronicity: acute Qualified Code(s): J96.01 - Acute respiratory failure with hypoxia Category: Medical Code(s): J96.91 - Respiratory failure, unspecified with hypoxia Plan 84-year-old with COPD, pneumonia related respiratory failure. Patient on BiPAP/Vapotherm for several days with slowly deteriorating respiratory function. /daughter present during my evaluation of patient at bedside tonight. Patient suffering from more frequent oxygen desaturations, tachypnea, and lethargy which responded to increasing BiPAP FiO2 from 60% to 100%. Problems listed below: Respiratory failure secondary to COPD exacerbation due to pneumonia: ? Increased IV glucocorticoid administration overnight. Started Levaquin 750 IV x 1. Discussed issue with pulmonology. Will repeat ABG 2 hours after previous value. If patient shows further clinical deterioration low threshold to elevate patient overnight. MDM ? Patient's /daughter acted as independent historians, ended with patient overnight ? I reviewed all imaging/lab work listed above including: Portable chest x-ray: I both ordered and personally interpreted chest x-ray overnight. Chest x-ray shows bibasilar airspace disease left greater than greater than right. No signs of pneumothorax. ABG at 2321: pH 7.397, pCO2 28, pO2 52.3. Patient on BiPAP 14/8, FiO2 60%, RR 24 at time of ABG ? Patient's worsening respiratory distress poses risk to life and bodily function. Low threshold to intubate patient if respiratory distress worsens and patient does not improve with increased FiO2 administration over next 2 hours. ? I discussed patient's case with pulmonology overnight via phone. 40 minutes of critical care time spent on this patient by myself, Avinash Orlando MD 11/15/2024.
[2024-11-16 00:20] LABS: Albumin Level 3.3 g/dl (3.5-5.0); Chloride 113 mmol/L (98-107); Potassium 3.2 mmoL/L (3.5-5.1); Sodium 140 mmol/L (136-145)
[2024-11-16 00:23] LABS: Alanine Aminotransferase 36 U/L (12-78); Albumin/Globulin Ratio 1.0 (1.1-1.8); Alkaline Phosphatase 131 U/L (38-126); Anion Gap 15.2 mEq/L (5-15); Aspartate Amino Transferase 92 U/L (17-59); Bilirubin,Total 1.3 mg/dl (0.2-1.3); Blood Urea Nitrogen 37 mg/dl (9-20); Calcium 9.0 mg/dl (8.4-10.2); Carbon Dioxide 15 mmol/L (22.0-30.0); Creatinine Clearance Estimated 31 mL/min (50-200); Creatinine,Serum 2.00 mg/dl (0.66-1.25); Estimated Glomerular Filt Rate 32 ml/min (>60); GFR (African American) 39 ML/MIN (>60); Globulin 3.3 g/dL (1.3-3.2); Glucose 150 mg/dl (74-100); Total Protein,Serum 6.6 g/dl (6.3-8.2)
[2024-11-16 00:25] LABS: Total Cells Counted 100
[2024-11-16] MEDS: CEFEPIME HCL 2 GM in 0.9 % SODIUM CHLORIDE 100 ML IV ×2 (00:25→11:43)
[2024-11-16 01:18] LABS: ABG HCO3 17.1 mmhg (22.0-26.0); ABG PCO2 26.2 mmhg (35.0-45.0); ABG PH 7.43 mmol/L (7.35-7.45); ABG PO2 104.3 mmhg (80-100); ABG TCO2 17.9 mmhg (23-27)
[2024-11-16 01:19] LABS: Source Right Radial
[2024-11-16 01:43] LABS: C-Reactive Protein 213.7 mg/L (0-4)
--- NOTE | 2024-11-16 02:57 | ECG_ITS ---
APPROVED REPORT Exam: Resting ECG HR:102 bpm ECG Measurements Heart Rate 102 AXES SC 193 P 64 QRSd 102 QRS -56 QT 342 T 9 QTc 401 Conclusion SINUS TACHYCARDIA WITH OCCASIONAL SUPRAVENTRICULAR PREMATURE COMPLEXES INDETERMINATE AXIS ABNORMAL ECG UNCONFIRMED REPORT Electronically signed by : Ferdinand Steven MD 11/16/2024 10:50:59
--- NOTE | 2024-11-16 03:34 | EXP.EVENT.NO ---
Came to bedside to reevaluate patient. Patient repeat ABG much improved on 100% FiO2. Patient suffered from chest pain episode, 7 out of 10, substernal, self resolved. EKG showed sinus tachycardia without signs or symptoms of ACS. Ordered 2 sets cardiac enzymes. Had goals of care discussion again with patient at bedside with and daughter present. Patient stated that he was getting tired, and /daughter state patient has been on BiPAP intermittently since . Patient also complained of sore throat on BiPAP. Told nurses place patient on Vapotherm, and allow patient to have sips of water. Had GlideScope brought to bedside. If patient does not do well on Vapotherm, low threshold to intubate patient within next 2 hours. REPEAT ABG shows pH 7.43, pCO2 26, PaO2 104.3 much improved in terms of oxygenation versus previous ABG.
[2024-11-16 03:49] LABS: Troponin I 0.10 ng/ml (0.00-0.034)
--- NOTE | 2024-11-16 04:09 | EXP.EVENT.NO ---
Went to bedside to evaluate patient. Patient unable to tolerate Vapotherm and desatted immediately so needed to be replaced on BiPAP. Patient with labored breathing pattern, but O2 sat 97% on FiO2 100% BiPAP.. Offered patient intubation overnight given patient's respiratory fatigue, and BiPAP dependent since . 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 I told patient and patient's that patient probably would be okay to wait, but that patient would probably do better if intubation done sooner rather than later. then repeated that they would rather wait to patient's wholesale account manager present in AM. I therefore told staff that while patient remained stable on BiPAP, would respect patient and patient's wishes and allow pulmonary to reevaluate patient in a.m. for intubation.
--- NOTE | 2024-11-16 04:20 | PC.NURSE ---
Patient was placed on vapotherm at 330 for break off bipap and oxygen sats declined into the eighties so was placed back on bipap. Patient and wanted to wait for doctor Campo to assess and make the decision on how to proceed with possible intubation.
--- NOTE | 2024-11-16 04:27 | PC.NURSE ---
@ approx 0300, pts family called nursing staff to bedside stating pt was c/o chest pain. EKG obtained and Dr Orlando notified and to bedside. EKG read by Dr Orlando. Pts chest pain resolved without intervention. No changes in lung sounds or respiratory status. After Dr Orlando spoke to family, received orders to place pt on vapotherm to allow him to take a drink and get a break from the BIPAP. States to have glidescope and intubation equipment/meds ready, that if pt does not tolerate Vapotherm, we would intubate pt. All equipment and meds were readily available to intubate pt. Will RT called to bedside to place pt on vapotherm. This RN and Will RT in room. When we were taking pt off BIPAP, the Pts asks pt Don't you think we should wait until Dr Campo is here before we decide to do this? Pt agreed that he would like Dr Campo to be here before being intubated, if possible. Pt was then placed back on BIPAP and Dr. Orlando was made aware of pt and family's decision. Dr Orlando to bedside to speak with the family and states we would hold off on intubation at this time.
[2024-11-16] MEDS: BUDESONIDE 0.5MG/2ML NEB 0.5 MG IH ×2 (06:30→18:13)
--- NOTE | 2024-11-16 06:41 | EXP.EVENT.NO ---
Went to bedside just now to reevaluate patient. Patient breathing improved overnight and patient able to tolerate Vapotherm and received small sips of water overnight. Patient O2 saturations above 90% during my bedside evaluation with Vapotherm in place. Informed patient that I would call pulmonology to talk about his respiratory status overnight. and daughter at bedside during my reevaluation of patient. Overall, patient appears to be suffering from increased respiratory distress secondary to COPD/pneumonia. Patient high risk for intubation within next 24 to 48 hours if he continues to suffer from respiratory distress episodes and desaturations.
--- NOTE | 2024-11-16 07:40 | CA_ITS ---
APPROVED REPORT EXAM: Limited 2D Echocardiogram Dry Wall Plasterer: Catarina Martínez CRT Ht: 6 ft 0 in Wt: 173lbs BSA: 2.00 BP: 115/58 mmHg Indications: Respiratory failure, ef check, full echo and cath 11-12-24 M-Mode Dimensions RVDd 3.35 cm (0.9-2.6) LVDd 4.24 cm (3.5-5.7) LVDs 3.03 cm (3.5-5.7) IVSd 1.21 cm (0.6-1.1) PWd 1.07 cm (0.6-1.1) EF (Teich) 55.30% FS 28.50% EDV (Teich) 80.40 mL ESV (Teich) 35.90 mL Other Information Study Quality: Technically Difficult Conclusion This is a limited TTE to evaluate for LV systolic function. Limited windows are obtained. The left ventricle is normal in size. There is increased LV wall thickness. There is hyperdynamic LV systolic function. LVEF is 70%. The right ventricle is not well-visualized, but grossly appears mildly dilated with normal RV function. No evidence of pericardial effusion. Electronically signed by : Leah Falk MD 11/16/2024 11:41:10
[2024-11-16 07:44] LABS: Hematocrit 33.4 % (42.0-52.0); Hemoglobin 11.1 g/dL (14.1-18.0); Immature Granulocytes % 1.1 %; Mean Corpuscular HGB Conc 33.2 g/dL (31.8-35.4); Mean Corpuscular Hemoglobin 31.2 pg (27.0-31.2); Mean Corpuscular Volume 93.8 fl (80-94); Nucleated Red Blood Cells % 0 %; Platelet Count 210 K/mm3 (142-424); Red Blood Count 3.56 M/mm3 (4.60-6.20); Red Cell Distribution Width-SD 55.2 fL; White Blood Count 23.8 K/mm3 (4.8-10.8)
[2024-11-16 08:03] LABS: Alanine Aminotransferase 40 U/L (12-78); Albumin Level 3.5 g/dl (3.5-5.0); Albumin/Globulin Ratio 1.0 (1.1-1.8); Alkaline Phosphatase 146 U/L (38-126); Anion Gap 15.2 mEq/L (5-15); Aspartate Amino Transferase 86 U/L (17-59); Bilirubin,Total 1.5 mg/dl (0.2-1.3); Blood Urea Nitrogen 40 mg/dl (9-20); Calcium 9.0 mg/dl (8.4-10.2); Carbon Dioxide 17 mmol/L (22.0-30.0); Chloride 113 mmol/L (98-107); Creatinine Clearance Estimated 29 mL/min (50-200); Creatinine,Serum 2.20 mg/dl (0.66-1.25); Estimated Glomerular Filt Rate 29 ml/min (>60); GFR (African American) 35 ML/MIN (>60); Globulin 3.5 g/dL (1.3-3.2); Glucose 118 mg/dl (74-100); Magnesium 2.6 mg/dl (1.6-2.3); Potassium 3.2 mmoL/L (3.5-5.1); Sodium 142 mmol/L (136-145); Total Protein,Serum 7.0 g/dl (6.3-8.2)
[2024-11-16 08:11] LABS: NT Pro Brain Natriuretic Pep. 4160 pg/mL (0-450)
[2024-11-16 08:36] LABS: Troponin I 0.10 ng/ml (0.00-0.034)
[2024-11-16 08:45] LABS: C-Reactive Protein 168.0 mg/L (0-4)
[2024-11-16 09:08] LABS: Procalcitonin 5.68 ng/mL (0.0-2.0)
[2024-11-16] MEDS: METHYLPREDNISOLONE SOD SUCC 40MG VIAL 40 MG IV (09:22)
[2024-11-16 09:23] LABS: Adenovirus,PCR Not Detected (NotDetected); Coronovirus HKU1,PCR Not Detected (NotDetected); Influenza A, PCR Not Detected (NotDetected); Influenza AH1, 2009 Not Detected (NotDetected); Influenza AH1, PCR Not Detected (NotDetected); Influenza AH3,PCR Not Detected (NotDetected); Influenza B, PCR Not Detected (NotDetected); Parainfluenza 1, PCR Not Detected (NotDetected); Parainfluenza 2, PCR Not Detected (NotDetected); Parainfluenza 3, PCR Not Detected (NotDetected)
[2024-11-16] MEDS: BRIMONIDINE 0.2% OPHTH SOLN 5ML BOTTLE OP ×2 (09:23→21:57)
[2024-11-16 09:24] LABS: Chlamydophila Pneumoniae, PCR Not Detected (NotDetected); Coronavirus 19, PCR Not Detected (NotDetected); Mycoplasma Pneumoniae, PCR Not Detected (NotDetected); Parainfluenza 4, PCR Not Detected (NotDetected)
--- NOTE | 2024-11-16 09:38 | XR_ITS ---
FINAL REPORT CLINICAL HISTORY: SOB COMPARISON: 11/15/2024 FINDINGS: The exam was obtained with lordotic positioning. The heart size is normal. The mediastinum is normal. There are patchy airspace opacities noted in the lung bases, that may represent pneumonia, stable since the prior exam of 11/15/2024. There are no pleural effusions. There is no pneumothorax. There is no osseous abnormality. IMPRESSION: No significant change in the patchy bilateral airspace opacities from the prior exam of 11/15/2024. Reviewed, Interpreted and Dictated by Ramu Monreal MD Transcribed by Elana Shaver Authenticated and [facility]
--- NOTE | 2024-11-16 10:17 | HMH.PHAAMS2 ---
- Antimicrobial Stewardship Review 48 HOUR ANTIBIOTICS Stewardship interventions: 48 hour timeout review (WBC STILL ELEVATED, EMPIRIC THERAPY )
--- NOTE | 2024-11-16 10:43 | PC.NURSE ---
Patient on bipap at this time. Holding PO Meds until locator see's the patient. hospitalist wants to try and put patient back on vapotherm
--- NOTE | 2024-11-16 11:41 | PC.NURSE ---
patient on high flow oxygen at this time vapotherm 40L 100%. per cutter operator patient to stay on high flow. after an hour if sats still good patient can have clear liquids. If patient starts desating patient will then be intubated
[2024-11-16] MEDS: diazePAM 10MG/2ML SYRINGE 2 MG IV (12:02)
--- NOTE | 2024-11-16 12:54 | P.PN_ITS ---
Subjective *Date: 11/16/24 *Time: 12:54 Interval history: Worsening respiratory vents over the weekend. Patient admits more tired and fatigued. Pulmonology Exam Inpatient Vital signs and Labs for Last 24 Hours: Temp Pulse Resp BP Pulse Ox O2 Del Method O2 Flow Rate 98.3 F 97 H 30 H 98/49 L 89 L Vapotherm 40 11/16/24 12:00 11/16/24 12:01 11/16/24 12:01 11/16/24 12:01 11/16/24 12:01 11/16/24 12:00 11/16/24 06:31 FiO2 90 11/16/24 10:00 Laboratory Results - last 24 hr 11/15/24 23:03: Specimen Source rr, O2 % 60, ABG pH 7.40, ABG pCO2 28.0 L, ABG pO2 52.3 L, ABG HCO3 16.8 L, ABG Total CO2 17.7 L, ABG O2 Saturation 87 L*, ABG Base Excess -8.0 L, Hair Test y, Vent Rate 24 11/15/24 23:54: WBC 23.1 H*, RBC 3.48 L, Hgb 11.2 L D, Hct 33.5 L, MCV 96.3 H, MCH 31.3 H, MCHC 32.5, RDW 15.9, Plt Count 193, MPV 9.5, Neut % (Auto) 94.9 H, Lymph % (Auto) 2.1 L, Millard % (Auto) 2.1, Eos % (Auto) 0.0 L, Baso % (Auto) 0.1, Neut # (Auto) 22.0 H, Lymph # (Auto) 0.5 L, Millard # (Auto) 0.5, Eos # (Auto) 0.0, Baso # (Auto) 0.0, Total Counted 100, Neutrophils % (Manual) 95 H, Lymphocytes % (Manual) 1 L, Monocytes % (Manual) 4, Platelet Estimate Not Reportable, RBC Morphology Not Reportable, Sodium 140, Potassium 3.2 L, Chloride 113 H, Carbon Dioxide 15 L, Anion Gap 15.2 H, BUN 37 H D, Creatinine 2.00 H, Estimated Creat Clear 31, Estimated GFR 32 L, Est GFR ( Amer) 39 L, Glucose 150 H, Calcium 9.0, Total Bilirubin 1.3, AST 92 H D, ALT 36, Alkaline Phosphatase 131 H , C-Reactive Protein 213.7 H, Total Protein 6.6, Albumin 3.3 L, Globulin 3.3 H, Albumin/Globulin Ratio 1.0 L 11/16/24 01:08: Specimen Source Right radial, O2 % 100, ABG pH 7.43, ABG pCO2 26.2 L, ABG pO2 104.3 H, ABG HCO3 17.1 L, ABG Total CO2 17.9 L, ABG O2 Saturation 98, ABG Base Excess -7.1 L, Hair Test Y, Vent Rate 20 11/16/24 03:22: Troponin I 0.10 H 11/16/24 07:23: WBC 23.8 H*, RBC 3.56 L, Hgb 11.1 L, Hct 33.4 L, MCV 93.8, MCH 31.2, MCHC 33.2, RDW 16.0, Plt Count 210, MPV 9.3, Neut % (Auto) 94.3 H, Lymph % (Auto) 2.2 L, Millard % (Auto) 2.3, Eos % (Auto) 0.0 L, Baso % (Auto) 0.1, Neut # (Auto) 22.4 H, Lymph # (Auto) 0.5 L, Millard # (Auto) 0.6, Eos # (Auto) 0.0, Baso # (Auto) 0.0, ESR 87 H, Sodium 142, Potassium 3.2 L, Chloride 113 H, Carbon Dioxide 17 L, Anion Gap 15.2 H, BUN 40 H, Creatinine 2.20 H, Estimated Creat Clear 29, Estimated GFR 29 L, Est GFR ( Amer) 35 L, Glucose 118 H D, Calcium 9.0, Magnesium 2.6 H, Total Bilirubin 1.5 H, AST 86 H, ALT 40, Alkaline Phosphatase 146 H, Lactate Dehydrogenase 789 H, Troponin I 0.10 H, C-Reactive Protein 168.0 H, NT-Pro-B Natriuret Pep 4160 H, Total Protein 7.0, Albumin 3.5, Globulin 3.5 H, Albumin/Globulin Ratio 1.0 L, Procalcitonin 5.68 H 11/16/24 09:15: Chlamy pneumoniae PCR Not detected, Adenovirus (PCR) Not detected, B. pertussis DNA (PCR) Not detected, Coronavirus OC43 (PCR) Not detected, Coronavirus HKU1 (PCR) Not detected, Coronavirus 229E (PCR) Not detected, SARS-CoV-2 (PCR) Not detected, Coronavirus NL63 (PCR) Not detected, Human Metapneumovir PCR Not detected, Influenza A (H1) PCR Not detected, Influ A (H1N1/09) PCR Not detected, Influenza A (H3) PCR Not detected, Influenza Type A (PCR) Not detected, Influenza Type B (PCR) Not detected, M. pneumoniae (PCR) Not detected, Parainfluenza 1 (PCR) Not detected, Parainfluenza 2 (PCR) Not detected, Parainfluenza 3 (PCR) Not detected, Parainfluenza 4 (PCR) Not detected, RSV (PCR) Not detected, Entero/Rhino (PCR) Detected A Temp Pulse Resp BP Pulse Ox O2 Del Method O2 Flow Rate 97.5 F L 82 19 116/58 L 88 L Nasal Cannula 4.5 11/12/24 08:00 11/12/24 11:01 11/12/24 08:00 11/12/24 08:00 11/12/24 11:01 11/12/24 11:01 11/12/24 11:01 Laboratory Results - last 24 hr 11/11/24 23:30: WBC 12.7 H D, RBC 4.11 L, Hgb 12.7 L D, Hct 38.3 L, MCV 93.2, MCH 30.9, MCHC 33.2, RDW 15.0, Plt Count 234, MPV 8.7, Neut % (Auto) 78.5, Lymph % (Auto) 9.4 L, Millard % (Auto) 6.9, Eos % (Auto) 3.8, Baso % (Auto) 0.3, Neut # (Auto) 10.0 H, Lymph # (Auto) 1.2, Millard # (Auto) 0.9, Eos # (Auto) 0.5 H, Baso # (Auto) 0.0, D-Dimer 0.76 H, VBG pH 7.56 H, VBG pCO2 23.5 L, VBG pO2 40.9 H, VBG HCO3 20.5 L, VBG Total CO2 21.2 L, VBG O2 Saturation 84.4 H, VBG Base Excess - 1.7, VBG Lactic Acid 3.1 H, Sodium 138, Potassium 3.8, Chloride 106, Carbon Dioxide 22, Anion Gap 13.8, BUN 18, Creatinine 1.70 H, Estimated Creat Clear 34, Estimated GFR 39 L, Est GFR ( Amer) 47 L, Glucose 106 H, Calcium 8.7, Magnesium 2.2, Total Bilirubin 0.7, AST 44 D, ALT 32 D, Alkaline Phosphatase 119, Troponin I 0.34 H, NT-Pro-B Natriuret Pep 525 H, Total Protein 6.8, Albumin 3.7, Globulin 3.1, Albumin/Globulin Ratio 1.2 11/11/24 23:37: Chlamy pneumoniae PCR Not detected, Adenovirus (PCR) Not detected, B. pertussis DNA (PCR) Not detected, Coronavirus OC43 (PCR) Not detected, Coronavirus HKU1 (PCR) Not detected, Coronavirus 229E (PCR) Not detected, SARS-CoV-2 (PCR) Not detected, Coronavirus NL63 (PCR) Not detected, Human Metapneumovir PCR Not detected, Influenza A (H1) PCR Not detected, Influ A (H1N1/09) PCR Not detected, Influenza A (H3) PCR Not detected, Influenza Type A (PCR) Not detected, Influenza Type B (PCR) Not detected, M. pneumoniae (PCR) Not detected, Parainfluenza 1 (PCR) Not detected, Parainfluenza 2 (PCR) Not detected, Parainfluenza 3 (PCR) Not detected, Parainfluenza 4 (PCR) Not detected, RSV (PCR) Not detected, Entero/Rhino (PCR) Detected A 11/12/24 04:41: WBC 12.3 H, RBC 3.76 L, Hgb 11.8 L, Hct 36.1 L, MCV 96.0 H, MCH 31.4 H, MCHC 32.7, RDW 15.2, Plt Count 200, MPV 9.0, Neut % (Auto) 77.4, Lymph % (Auto) 11.5, Millard % (Auto) 6.0, Eos % (Auto) 4.2, Baso % (Auto) 0.2, Neut # (Auto) 9.5 H, Lymph # (Auto) 1.4, Millard # (Auto) 0.7, Eos # (Auto) 0.5 H, Baso # (Auto) 0.0, Sodium 139, Potassium 3.6, Chloride 108 H, Carbon Dioxide 24, Anion Gap 10.6, BUN 17, Creatinine 1.50 H, Estimated Creat Clear 40, Estimated GFR 45 L, Est GFR ( Amer) 54 L, Glucose 129 H D, Lactate 2.0, Calcium 8.1 L, C- Reactive Protein 62.6 H D, Procalcitonin 0.248 11/12/24 09:13: Specimen Source L radial, O2 % 4lpm, ABG pH 7.57 H*, ABG pCO2 22.4 L, ABG pO2 58.2 L, ABG HCO3 20.0 L, ABG Total CO2 20.7 L, ABG O2 Saturation 94, ABG Base Excess -2.1, Hair Test Acceptable I & O for Labs for Last 24 Hours: Intake & Output 11/13/24 11/14/24 11/15/24 11/16/24 23:59 23:59 23:59 23:59 Intake Total 1802.85 / 1802.85 1797.100 / 1917.100 690 / 690 350 / 350 Output Total 650 / 650 1635 / 2385 2865 / 3165 584 / 584 Balance 1152.85 / 1152.85 162.100 / -467.900 -2175 / -2475 -234 / -234 Weight 171 lb 1 oz 170 lb 170 lb 0.01 oz 172 lb 6.424 oz Intake & Output 11/09/24 11/10/24 11/11/24 11/12/24 23:59 23:59 23:59 23:59 Intake Total 360 / 360 Balance 360 / 360 Weight 160 lb 168 lb 7 oz Microbiology Reports for the Last 24 Hours: Microbiology 11/11/24 23:27 Blood Blood Culture - Preliminary NO GROWTH AFTER 4 DAYS 11/11/24 23:27 Blood Blood Culture - Preliminary NO GROWTH AFTER 4 DAYS Microbiology 11/10/24 09:23 Sputum - Expectorated Sputum Gram Stain - Final 11/10/24 09:23 Sputum - Expectorated Sputum Sputum Culture - Preliminary Gram Negative Rods Constitutional: Present severe distress Head: Present normocephalic and atraumatic ENT: Present normal exam, normal oropharynx and mucous membranes moist Neck: Present normal inspection and full ROM Respiratory: Present respiratory distress and rhonchi; Absent wheezes, normal respiratory effort or able to speak in complete sentences Cardiac: Present S1/S2, Tachycardia and radial pulses present GI: Present soft and distention; Absent tenderness or guarding Skin: Present intact; Absent cyanosis or jaundice Neuro: Present alert, awake and oriented x 3 Extremities: Present normal inspection; Absent clubbing or cyanosis Psychiatric: Present normal affect and cooperative Assessment and Plan *Assessment and plan (1) Pneumonia: Status: Acute Category: Medical Code(s): J18.9 - Pneumonia, unspecified organism (2) Acute respiratory failure with hypoxia: Status: Acute Category: Medical Code(s): J96.01 - Acute respiratory failure with hypoxia Plan Mr. Magdaleno is a 84-year-old male with history of asthma COPD overlap syndrome, cervical spondylosis with polyneuropathy bilateral lower extremity weakness, baseline not using any oxygen supplementation discharged to hospital yesterday after being treated for pneumonia on examination on room air with no respiratory distress prior to discharge when home noted no acute worsening respiratory distress presented to the hospital with x-ray showing significant worsening airspace disease needing new oxygen requirements and presented to the ER and pulmonary was called for further evaluation and management. Afebrile. Hemodynamically stable. Mild neutrophilic predominant leukocytosis relatively stable from yesterday. Respiratory viral PCR panel positive for entero and rhinovirus. CTA PE protocol no evidence of pulmonary embolism. Bilateral diffuse ground glass opacities concerning for atypical/viral pneumonia. Echo from most recent admission normal LVEF. Diastolic dysfunction. Pro-Mart within normal limits. CRP elevated at 62.6. Hemoglobin stable. Monitor closely. Blood cultures no growth 24 hours. Nasal MRSA PCR negative. Interval update: Chest x-ray from this morning reviewed, stable with no acute changes. Procalcitonin worsening from admission. Worsening respiratory distress over the weekend. Currently on high flow nasal cannula 40 L 100%, intermittently needing BiPAP Continue to receive vancomycin and cefepime. Added levofloxacin yesterday. CRP improving. Repeat respiratory viral PCR panel negative Continue to receive methylprednisolone, increase to 125 mg twice daily Slight worsening renal function, final LR bolus. XL discussed with the patient and the family regarding current clinical situation and possible etiologies prognosis. Will closely monitor. If patient respiratory status worsens needing to escalate to BiPAP therapy then we will consider intubation and mechanical ventilatory support. Plan: Continue vancomycin cefepime and levofloxacin. MethylPrednisone 125 mg twice daily 500cc LR bolus Continue high flow nasal cannula oxygen supplementation to maintain O2 saturation of 90% and above, currently on 40 L 100%. Levalbuterol ipratropium every 6 hours along with Pulmicort every 12 scheduled Total critical care time spent on this patient is 35 minutes managing acute hypoxic respiratory failure needing HFNC and Non-Invasive ventilation. This time spent include reviewing test results including interpreting chest x-rays, labs, blood gas, optimizing the HFNC and Non-Invasive ventilation settings,formulating plan of care, discussing the plan of care with the team and the nursing staff.
--- NOTE | 2024-11-16 13:01 | HMH.ITSTN ---
spoke with Annalisa KING, states to hold off on the exam for now due to low sats.
[2024-11-16] MEDS: METHYLPREDNISOLONE SOD SUCC 125MG VIAL 125 MG IV (13:25)
[2024-11-16] MEDS: MEROPENEM 1 GM in 0.9 % SODIUM CHLORIDE 100 ML IV ×2 (13:25→21:58)
[2024-11-16] MEDS: LACTATED RINGERS 1000ML 500 ML 250 ML IV ×2 (13:32→19:48)
[2024-11-16] MEDS: SODIUM CHLORIDE 3% 15ML NEB 3 ML IH (14:23)
[2024-11-16] MEDS: VANCOMYCIN HCL 1,000 MG in 0.9 % SODIUM CHLORIDE 250 ML 125 MG IV (14:59)
[2024-11-16] MEDS: LEVALBUTEROL 1.25MG/3ML NEB 1.25 MG IH ×3 (15:33→23:49)
[2024-11-16] MEDS: IPRATROPIUM BROMIDE 0.5 MG/2.5ML SOLUTION IH ×3 (15:33→23:49)
[2024-11-16] MEDS: FAMOTIDINE 20MG/2ML VIAL 40 MG IV (15:54)
--- NOTE | 2024-11-16 16:07 | XR_ITS ---
PROCEDURE INFORMATION: Exam: XR Chest Exam date and time: 11/16/2024 4:13 PM Age: 84 years old Clinical indication: Shortness of breath; Additional info: Short of breath TECHNIQUE: Imaging protocol: Radiologic exam of the chest. Views: 1 view. COMPARISON: CR XR CHEST PORTABLE 11/16/2024 9:38 AM. CTA chest dated 11/12/2024. FINDINGS: Tubes, catheters and devices: EKG leads project over the chest and may obscure pathology. Lungs: Mild increased opacities of the right mid and lower lung. Stable opacities of the left mid and lower lung. Pleural spaces: There appear to be small dependent bilateral pleural effusions that are stable. Heart/Mediastinum: Unremarkable. No cardiomegaly. Bones/joints: There are costochondral calcifications. IMPRESSION: Mild worsening of the right lung opacities. Stable left lung opacities. Stable small dependent bilateral effusions.
--- NOTE | 2024-11-16 16:11 | PC.NURSE ---
at 1518 notified provider about patients oxygen saturation staying between 86-88. He wants otilia to be called, plus give the patient a breathing treatment. Rt called for the breathing treatment.
--- NOTE | 2024-11-16 16:17 | PC.NURSE ---
at 1527 provider called to get something for upset stomach. Initally was going to give a gi cocktail if patient wasn't on the bipap but due to everytime patient tries and takes a drink he goes into a coughing spell. Famotidine 40mg iv once ordered and then 20mg iv bid after the first dose.
[2024-11-16 16:19] LABS: ABG HCO3 16.9 mmhg (22.0-26.0); ABG PCO2 27.3 mmhg (35.0-45.0); ABG PH 7.41 mmol/L (7.35-7.45); ABG TCO2 17.7 mmhg (23-27); Source Left Brachial
--- NOTE | 2024-11-16 16:19 | PC.NURSE ---
patient on vapotherm at this time with non rebreather over it. chest xray being completed at this time. abg also obtained.
[2024-11-16 16:20] LABS: ABG PO2 42.5 mmhg (80-100)
--- NOTE | 2024-11-16 16:34 | PC.NURSE ---
Luisa Cortes consulted with Jahaira. He wants patient to be intubated. Patient has been having increase work of breathing, does not want to be put back on the bipap. Luisa Cortes talking with family at this time. ER Doc called to help with intubation
--- NOTE | 2024-11-16 16:36 | PC.NURSE ---
1607 Raymon consulted by respiratory. he wants an chest xray and abg obtained and then to place a nonrebreather over the vapotherm
[2024-11-16] MEDS: ETOMIDATE 40MG/20ML VIAL 23 MG IV (17:31)
[2024-11-16] MEDS: SUCCINYLCHOLINE 20MG/ML 10 ML MDV 80 MG IV (17:32)
[2024-11-16] MEDS: FENTANYL CITRATE/PF 1,000 MCG in 0.9 % SODIUM CHLORIDE 80 ML 2.5 MCG IV (17:35)
--- NOTE | 2024-11-16 17:36 | XR_ITS ---
PROCEDURE INFORMATION: Exam: XR Chest Exam date and time: 11/16/2024 5:41 PM Age: 84 years old Clinical indication: Device placement; Ett placement (vent status); Additional info: Et tube TECHNIQUE: Imaging protocol: Radiologic exam of the chest. Views: 1 view. COMPARISON: CR XR CHEST PORTABLE 11/16/2024 4:13 PM FINDINGS: Tubes, catheters and devices: Endotracheal tube tip 3.9 cm above the luther. Nasogastric tube tip in the gastric lumen with the side port just distal to the GE junction. Lungs: Moderate-severe pulmonary fibrosis with basilar predominance again noted. There areas of consolidation in the central left base and to a lesser degree the right base concerning for superimposed pneumonia versus atelectasis or edema. Pleural spaces: Possible small left pleural effusion. No pneumothorax. Heart/Mediastinum: Heart size and pulmonary vasculature within normal limits for technique. Bones/joints: Osteopenia. IMPRESSION: 1. Endotracheal tube tip 3.9 cm above the luther. Nasogastric tube tip in the stomach. 2. Pulmonary fibrosis with superimposed bibasilar consolidative densities which may represent elements of pneumonia, edema, or atelectasis.
--- NOTE | 2024-11-16 17:42 | ECG_ITS ---
APPROVED REPORT Exam: Resting ECG HR:137 bpm ECG Measurements Heart Rate 137 AXES QRSd 114 QRS -61 QT 315 T 63 QTc 395 Conclusion ATRIAL FIBRILLATION WITH RAPID VENTRICULAR RESPONSE INDETERMINATE AXIS RIGHT BUNDLE BRANCH BLOCK [120+ ms QRS DURATION, UPRIGHT V1, 40+ ms S IN I/aVL/V4/V5/V6] LEFT ANTERIOR FASCICULAR BLOCK [QRS AXIS <= -45, QR IN I, RS IN II] ABNORMAL ECG UNCONFIRMED REPORT Electronically signed by : Ferdinand Steven MD 11/17/2024 12:51:33
--- NOTE | 2024-11-16 17:48 | P.PCN_ITS ---
[facility] Procedure Note Date: 11/16/24 Time: 17:30 Procedure Note:: Hypoxic respiratory failure in the setting of COPD and pneumonia. Emergency department was contacted for intubation on patient, Kalia Magdaleno, for intubation in the setting of hypoxic respiratory failure with pneumonia and his tory of COPD. Per report given to me, patient has had recurrent pneumonia that has worsened over the last day and has been on Vapotherm but is still hypoxic. He cannot tolerate BiPAP. They did have intubation. Discussions by primary team were had with with patient and family and consent was obtained to proceed with intubation. I did confirm with patient that he is still wanting to proceed with intubation. Respiratory therapy is at the bedside.. 0.3 mg/kg of etomidate was pulled as well as 1 mg/kg of succinylcholine was pulled. Suction was available. Patient was on continuous pulse oximetry and was preoxygenated with nonrebreather. Patient's blood pressure was stable. Patient was tachycardic. I reviewed patient's chest x-ray and does show findings concerning for multifocal pneumonia but no pneumothorax is appreciated. RSI was performed with etomidate followed by succinylcholine after IV patency was confirmed. Patient was intubated with a 7.5 ET tube using a Mac 3 glide scope blade with video assistance. Patient's tube was secured 22 at the lips. No difficulty with intubation with a grade 1 view of the vocal cords. Patient had positive color change on capnography. Patient was easy to ventilate using back bag mask and elation. Patient's oxygenation began improving to the mid to lower 90s and repeat blood pressure was stable. There were no immediate complications of the procedure.
[2024-11-16 18:54] LABS: ABG HCO3 14.8 mmhg (22.0-26.0); ABG PCO2 40.3 mmhg (35.0-45.0); ABG PO2 102.9 mmhg (80-100); ABG TCO2 16.0 mmhg (23-27)
--- NOTE | 2024-11-16 19:01 | PC.NURSE ---
Addendum entered by Annalisa Garcia RN 11/16/24 19:26: pt placed on vent, settings are as follow 100% oxygen 448 tidal volume peep [address] bingham Original Note: Intubation Note 1726 Dr. Farfan at bedside 1731 atomidate given 1732 prebagging and succ given 1733 glidoscope-passing 7.5 ett tube, color change, 22 at lip, easily bagged, auscultated breath sounds 1735 radiology called to confirm placement 1738 og placed 18 korean at lip, auscultated 1742 EKG obtained armen was notified pt heart rate 160's 1745 propofol was upped to 20mcg 1748 chest xray obtained 1749 Fentanyl upped to 35 mcg 1750 propofol upped to 30mcg 1755 Fentanyl upped to 45mcg 1800 propofol upped ot 40mcg 1808 armen at bedside 1842 family at bedside post intubation manual pressures Right arm 118/58, Left arm 116/60 rectal temp 96.9
[2024-11-16 19:25] LABS: PEEP 12; Source Right Radial
[2024-11-16 19:26] LABS: ABG PH 7.18 mmol/L (7.35-7.45)
--- NOTE | 2024-11-16 21:00 | ECG_ITS ---
APPROVED REPORT Exam: Resting ECG HR:131 bpm ECG Measurements Heart Rate 131 AXES DC 152 P -22 QRSd 117 QRS -54 QT 324 T 60 QTc 401 Conclusion SINUS TACHYCARDIA INDETERMINATE AXIS LEFT ANTERIOR FASCICULAR BLOCK [QRS AXIS <= -45, QR IN I, RS IN II] ABNORMAL ECG UNCONFIRMED REPORT Electronically signed by : Ferdinand Steven MD 11/17/2024 12:51:15
--- NOTE | 2024-11-16 21:18 | P.PN_ITS ---
Subjective *Date: 11/17/24 *Time: 00:41 Interval history: Unfortunately patient had a rough night, and continued to have a challenging day today. Desaturating with Vapotherm and concomitant nonrebreather, decision was made to intubate after extensive conversation with patient and pulmonology. CXR postintubation seems to be improving. Exam Data for Last 24 hours Vital signs and Labs for Last 24 Hours: Temp Pulse Resp BP Pulse Ox O2 Del Method O2 Flow Rate 98.3 F 130 H 32 H 143/57 H 94 L Mechanical Ventilation 40 11/16/24 16:00 11/16/24 20:00 11/16/24 20:27 11/16/24 20:00 11/16/24 20:27 11/16/24 20:00 11/16/24 17:00 FiO2 85 11/16/24 20:27 Laboratory Results - last 24 hr 11/15/24 23:03: Specimen Source rr, O2 % 60, ABG pH 7.40, ABG pCO2 28.0 L, ABG pO2 52.3 L, ABG HCO3 16.8 L, ABG Total CO2 17.7 L, ABG O2 Saturation 87 L*, ABG Base Excess -8.0 L, Hair Test y, Vent Rate 24 11/15/24 23:54: WBC 23.1 H*, RBC 3.48 L, Hgb 11.2 L D, Hct 33.5 L, MCV 96.3 H, MCH 31.3 H, MCHC 32.5, RDW 15.9, Plt Count 193, MPV 9.5, Neut % (Auto) 94.9 H, Lymph % (Auto) 2.1 L, [place] % (Auto) 2.1, Eos % (Auto) 0.0 L, Baso % (Auto) 0.1, Neut # (Auto) 22.0 H, Lymph # (Auto) 0.5 L, [place] # (Auto) 0.5, Eos # (Auto) 0.0, Baso # (Auto) 0.0, Total Counted 100, Neutrophils % (Manual) 95 H, Lymphocytes % (Manual) 1 L, Monocytes % (Manual) 4, Platelet Estimate Not Reportable, RBC Morphology Not Reportable, Sodium 140, Potassium 3.2 L, Chloride 113 H, Carbon Dioxide 15 L, Anion Gap 15.2 H, BUN 37 H D, Creatinine 2.00 H, Estimated Creat Clear 31, Estimated GFR 32 L, Est GFR ( Amer) 39 L, Glucose 150 H, Calcium 9.0, Total Bilirubin 1.3, AST 92 H D, ALT 36, Alkaline Phosphatase 131 H , C-Reactive Protein 213.7 H, Total Protein 6.6, Albumin 3.3 L, Globulin 3.3 H, Albumin/Globulin Ratio 1.0 L 11/16/24 01:08: Specimen Source Right radial, O2 % 100, ABG pH 7.43, ABG pCO2 26.2 L, ABG pO2 104.3 H, ABG HCO3 17.1 L, ABG Total CO2 17.9 L, ABG O2 Saturation 98, ABG Base Excess -7.1 L, Hair Test Y, Vent Rate 20 11/16/24 03:22: Troponin I 0.10 H 11/16/24 07:23: WBC 23.8 H*, RBC 3.56 L, Hgb 11.1 L, Hct 33.4 L, MCV 93.8, MCH 31.2, MCHC 33.2, RDW 16.0, Plt Count 210, MPV 9.3, Neut % (Auto) 94.3 H, Lymph % (Auto) 2.2 L, [place] % (Auto) 2.3, Eos % (Auto) 0.0 L, Baso % (Auto) 0.1, Neut # (Auto) 22.4 H, Lymph # (Auto) 0.5 L, [place] # (Auto) 0.6, Eos # (Auto) 0.0, Baso # (Auto) 0.0, ESR 87 H, Sodium 142, Potassium 3.2 L, Chloride 113 H, Carbon Dioxide 17 L, Anion Gap 15.2 H, BUN 40 H, Creatinine 2.20 H, Estimated Creat Clear 29, Estimated GFR 29 L, Est GFR ( Amer) 35 L, Glucose 118 H D, Calcium 9.0, Magnesium 2.6 H, Total Bilirubin 1.5 H, AST 86 H, ALT 40, Alkaline Phosphatase 146 H, Lactate Dehydrogenase 789 H, Troponin I 0.10 H, C-Reactive Protein 168.0 H, NT-Pro-B Natriuret Pep 4160 H, Total Protein 7.0, Albumin 3.5, Globulin 3.5 H, Albumin/Globulin Ratio 1.0 L, Procalcitonin 5.68 H 11/16/24 09:15: Chlamy pneumoniae PCR Not detected, Adenovirus (PCR) Not detecte d, B. pertussis DNA (PCR) Not detected, Coronavirus OC43 (PCR) Not detected, Coronavirus HKU1 (PCR) Not detected, Coronavirus 229E (PCR) Not detected, SARS-CoV-2 (PCR) Not detected, Coronavirus NL63 (PCR) Not detected, Human Metapneumovir PCR Not detected, Influenza A (H1) PCR Not detected, Influ A (H1N1/09) PCR Not detected, Influenza A (H3) PCR Not detected, Influenza Type A (PCR) Not detected, Influenza Type B (PCR) Not detected, M. pneumoniae (PCR) Not detected, Parainfluenza 1 (PCR) Not detected, Parainfluenza 2 (PCR) Not detected, Parainfluenza 3 (PCR) Not detected, Parainfluenza 4 (PCR) Not detected, RSV (PCR) Not detected, Entero/Rhino (PCR) Detected A 11/16/24 16:16: Specimen Source Left brachial, O2 % Vapo 40l 100%, ABG pH 7.41, ABG pCO2 27.3 L, ABG pO2 42.5 L, ABG HCO3 16.9 L, ABG Total CO2 17.7 L, ABG O2 Saturation 80 L*, ABG Base Excess -7.8 L, Hair Test Non applicable 11/16/24 18:47: Specimen Source Right radial, O2 % 100, ABG pH 7.18 L*, ABG pCO2 40.3, ABG pO2 102.9 H, ABG HCO3 14.8 L, ABG Total CO2 16.0 L, ABG O2 Saturation 96, ABG Base Excess -13.6 L, Hair Test Patient unable, Vent Rate 18, Tidal Volume 440, PEEP 12 I & O for Last 24 hours: Intake & Output 11/13/24 11/14/24 11/15/24 11/16/24 23:59 23:59 23:59 23:59 Intake Total 1802.85 / 1802.85 1797.100 / 1917.100 690 / 690 754.657 / 754.657 Output Total 650 / 650 1635 / 2385 2865 / 3165 824 / 824 Balance 1152.85 / 1152.85 162.100 / -467.900 -2175 / -2475 -69.343 / -69.343 Weight 77.593 kg 77.111 kg 77.111 kg 78.2 kg Microbiology Reports for the Last 24 Hours: Microbiology 11/16/24 17:46 Sputum - Endotracheal Tube Aspirate Gram Stain - Final 11/11/24 23:27 Blood Blood Culture - Preliminary NO GROWTH AFTER 4 DAYS 11/11/24 23:27 Blood Blood Culture - Preliminary NO GROWTH AFTER 4 DAYS Constitutional Constitutional: no acute distress Comments: Currently sedated and intubated. *Routine HEENT Exam Head: Present normocephalic Eye: Present EOMI and PERRL ENT: Present mucous membranes moist *Routine Neck Exam Neck: Present supple; Absent lymphadenopathy *Routine Respiratory Exam Respiratory: Present CTA bilaterally *Routine Cardiovascular Exam Cardiovascular: Present RRR *Routine Abdominal Exam Abdominal: Present soft and normoactive bowel sounds; Absent tenderness *Routine Extremities Exam Extremities: Absent cyanosis, clubbing or edema *Routine Skin Exam Skin: Present warm; Absent rash *Routine Neurological Exam Comments: Sedated and intubated. Assessment and Plan *Assessment and plan (1) Acute respiratory failure with hypoxia: Status: Acute Category: Medical Code(s): J96.01 - Acute respiratory failure with hypoxia (2) Pneumonia: Status: Acute Qualifiers: Laterality: left Lung location: lower lobe of lung Pneumonia type: due to unspecified organism Qualified Code(s): J18.9 - Pneumonia, unspecified organism Category: Medical Code(s): J18.9 - Pneumonia, unspecified organism (3) Enterovirus infection: Status: Acute Category: Medical Code(s): B34.1 - Enterovirus infection, unspecified (4) Asthma: Status: Acute Category: Medical Code(s): J45.909 - Unspecified asthma, uncomplicated (5) Polyneuropathy: Status: Chronic Category: Medical Code(s): G62.9 - Polyneuropathy, unspecified (6) Dementia: Problem Comment: Slowly progressive memory deficit currently on Namenda 10 mg p.o. twice daily. BMI 22.8, weight loss, mild anorexia. He is not a candidate for donezepil at this time Status: Chronic Qualifiers: Dementia type: unspecified type Dementia severity: mild Dementia behavioral or psychological symptom: without behavioral, psychotic, or mood disturbance or anxiety Qualified Code(s): F03.A0 - Unspecified dementia, mild, without behavioral disturbance, psychotic disturbance, mood disturbance, and anxiety Category: Medical Code(s): F03.90 - Unspecified dementia, unspecified severity, without behavioral disturbance, psychotic disturbance, mood disturbance, and anxiety (7) COPD (chronic obstructive pulmonary disease): Status: Chronic Qualifiers: COPD type: emphysema Emphysema type: centrilobular Qualified Code(s): J43.2 - Centrilobular emphysema Category: Medical Code(s): J44.9 - Chronic obstructive pulmonary disease, unspecified (8) Neuropathy: Problem Comment: Initial diagnosis at [facility]?Dr. Carrion. 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 Brisk reflexes likely due to cervical spondylosis without myelopathy and B12 deficiency 09/30/2023: Right hand weakness with muscle wasting involving intrinsic muscles, (ulnar nerve/C8-T1 dermatome distribution) Status: Chronic Category: Medical Code(s): G62.9 - Polyneuropathy, unspecified (9) ILD (interstitial lung disease): Status: Chronic Category: Medical Code(s): J84.9 - Interstitial pulmonary disease, unspecified (10) Klebsiella pneumoniae pneumonia: Status: Acute Category: Medical Code(s): J15.0 - Pneumonia due to Klebsiella pneumoniae Anshu Magdaleno is a 84-year-old male with medical history significant for CAD with 8 stents (follows with [facility]), asthma on room air, anxiety/depression, complex partial seizures, dementia who unfortunately presented back to the ED shortly after discharge with shortness of breath. He was discharged in stable condition for treatment of aspiration pneumonia, on room air without respiratory distress and did well at home for a few hours but began feeling short of breath, found to be hypoxic in the ED. Respiratory panel positive for rhino/entero-virus. Met for severe sepsis with tachycardia, leukocytosis, identified infection (pneumonia) with endorgan damage in the setting of respiratory failure. #Septic shock #Severe sepsis, present on admission #Acute hypoxic respiratory failure #ARDS #Aspiration pneumonia, Klebsiella pneumonia #Rhino/entero-virus viral pneumonia #Hemoptysis #Asthma ? Sputum culture was positive on 11/10 for Klebsiella. Comprehensive respiratory panel positive 11/12 for rhino/enterovirus. ? Patient has had worsening respiratory distress from last night into this afternoon. Was on BiPAP overnight, transition to Vapotherm but was desaturating to 85 and spite of concomitant nonrebreather. On my reevaluation this afternoon, patient looked very weak, diaphoretic, pale. ABG showed hypoxemia. In my opinion, patient was in the verge of total respiratory fatigue. Extensively discussed with patient and at bedside regarding prognosis without intubation, as patient did not want intubation overnight. Ultimately, patient understood the gravity of the situation and was amenable to intubation. ? Repeat CXR this morning consistent with developing ARDS. ? Discussed extensively with pulmonology, also agreed with intubation. Dr. Gonzales with emergency medicine graciously performed intubation. ? Currently intubated and sedated with settings: TV 440, PEEP 12, RR 22, FiO2 80%. Repeat CXR shows improvement in ground glass opacities. ? Started propofol, fentanyl drips. Titrate to minimum necessary dosages to mitigate hypotension. ? Started Levophed in the setting of sepsis, and propofol and fentanyl drips. ? Repeat limited ECHO 11/17/2024 showed hyperdynamic LV function with LVEF 70%. ? Given 500 cc LR bolus x 2 in the setting of fluid depletion, hyperdynamic LV, TREVOR. Patient has had minimal oral intake since admission due to concern for aspiration pneumonia. ? Repeat ABG after intubation showed metabolic acidosis, likely in the setting of worsening renal failure. Discussed with pulmonology, agreed with bolus and recommended starting sodium bicarb and starting LR at 100 mL/h. ? Started oral sodium bicarb 650 mg twice daily, LR at 100 mL/h. ? WBC up to 23.8, procalcitonin up to 5.68, CRP down 168. ? Continue vancomycin, cefepime 2 g every 12 hours. Pulmonology started levofloxacin to cover empirically for possible Legionella. I ordered meropenem x 2 doses. ? Repeat sputum, blood cultures NGTD. - DuoNebs every 6 hours scheduled and Pulmicort twice daily. ? Follow-up morning CBC, CMP, procalcitonin, CRP. #TREVOR on CKD ? Creatinine 2.2 today, baseline 1.5. In the setting of diuresis, minimal oral intake. ? IV fluids as above. Follow-up morning RFT's. #History of CAD with stents #Hypertension ? Extensive coronary disease, and 8 stents in the past. Follows with [facility] [place]. ? ECHO 11/10/2024 with normal biventricular systolic function. BNP 742, diuresed x 1 today as stated above. ? Cardiology consulted, s/p PCI 11/11/2024 with nonocclusive coronary arteries. ? Continue home aspirin, statin. ? Entresto held due to soft pressures during admission. #Anxiety/depression: Continue home desvenlafaxine, buspirone. #Complex partial seizures: Continue home lamotrigine 150 mg twice daily. #Dementia: Hold home memantine in setting of intubation ICU/Critical care attestation This patient is critically ill with 35 minutes devoted solely to this patient managing life/organ supporting interventions that required physician assessment. This includes time spent making adjustments in ventilator settings, IV fluid administration, titration of pressors, adjustments of medications, discussion of patient with consultants and other care providers as well as updating patient and/or family (if patient by virtue of his/her condition is unable to participate in decision making). This does not include time spent performing separately billed procedures. Time is not concurrent with that of other providers.
[2024-11-16] MEDS: BUSPIRONE HCL 5 MG TABLET PO (21:57)
[2024-11-16] MEDS: FAMOTIDINE 20MG/2ML VIAL 20 MG IV (21:58)
[2024-11-16] MEDS: LATANOPROST 0.005% OPTH SOLN 2.5ML OP (21:58)
[2024-11-16] MEDS: MONTELUKAST SODIUM 10MG TAB 10 MG PO (21:59)
[2024-11-16] MEDS: LACTATED RINGERS 1000ML 1,000 ML 100 ML IV (22:03)
[2024-11-16] MEDS: SODIUM BICARBONATE 650MG TABLET 650 MG PO (22:16)
[2024-11-16 23:16] LABS: Lactate Venous 1.7 mmol/L (0.4-2.0); VBG HCO3 17.5 mmol/L (23-30); VBG PCO2 55.1 mmol/L (35-51); VBG PO2 131.2 mmol/L (28-40)
[2024-11-16 23:20] LABS: POC Glucose,Bedside 148 gm/dL (70-110)
[2024-11-16 23:24] LABS: VBG PH 7.12 mmol/L (7.31-7.41)
--- NOTE | 2024-11-16 23:24 | XR_ITS ---
PROCEDURE INFORMATION: Exam: XR Chest Exam date and time: 11/16/2024 11:29 PM Age: 84 years old Clinical indication: Device placement; Ett placement (vent status); Additional info: F/u et tube placement TECHNIQUE: Imaging protocol: Radiologic exam of the chest. Views: 1 view. COMPARISON: CR XR CHEST PORTABLE 11/16/2024 5:41 PM FINDINGS: Tubes, catheters and devices: Endotracheal tube tip now 6 cm above the luther, mildly retracted from prior position. Esophagogastric tube projects off the inferior edge of the field of view in the gastric lumen, with the side port near the level of the GE junction, not significantly changed. Lungs: Increased pulmonary expansion. Chronic pulmonary fibrosis again noted. The previous consolidative appearing elements of airspace disease in the lung bases, left greater than right, show interval improvement favoring that this largely represent atelectasis. Can not exclude elements of basilar edema or pneumonia however. Pleural spaces: Unremarkable. No pleural effusion. No pneumothorax. Heart/Mediastinum: Unremarkable. No cardiomegaly. Bones/joints: Osteopenia. IMPRESSION: 1. Endotracheal tube retracted somewhat from the previous exam, now 6 cm above the luther. 2. Esophagogastric tube grossly unchanged although incompletely visualized. 3. Improved pulmonary expansion. 4. Chronic pulmonary fibrosis. 5. Previous bibasilar alveolar opacities are improved, favoring that this was largely atelectasis from low lung volumes on the prior scan although elements of basilar edema or pneumonia are not excluded.
--- NOTE | 2024-11-16 23:40 | PC.NURSE ---
Addendum entered by Annalisa Alejo RN 11/16/24 23:46: RT increasing RR to 22. Original Note: Called blood gas results to Dr Cortes.
[2024-11-17] VITALS (57 sets, daily range): BP systolic 73–136; BP diastolic 43–66; PULSE 95–119; RESP 14–29; TEMP 35.7–36.7; O2SAT 89–99; BMI 23.7
[2024-11-17] MEDS: FENTANYL CITRATE/PF 1,000 MCG in 0.9 % SODIUM CHLORIDE 80 ML 3.75 MCG IV
--- NOTE | 2024-11-17 00:11 | PC.NURSE ---
Dr Cortes notified of pt being hypotensive despite titrating sedation down. Norepi started @8mcg/min per Dr Cortes
[2024-11-17] MEDS: NOREPINEPHRINE BITARTRATE/D5W 8 MG/250 ML PLAST..BAG 15 MG IV (00:15)
[2024-11-17 00:21] LABS: POC Glucose,Bedside 164 gm/dL (70-110)
[2024-11-17] MEDS: METHYLPREDNISOLONE SOD SUCC 125MG VIAL 125 MG IV ×2 (00:46→12:30)
--- NOTE | 2024-11-17 00:58 | EXP.EVENT.NO ---
Goals of care discussion Patient has had worsening respiratory distress from last night into this afternoon. Was on BiPAP overnight, transition to Vapotherm but was desaturating to 85 and spite of concomitant nonrebreather. On my reevaluation this afternoon, patient looked very weak, diaphoretic, pale. ABG showed hypoxemia. In my opinion, patient was in the verge of total respiratory fatigue. Extensively discussed with patient and at bedside regarding prognosis without intubation, as patient did not want intubation overnight. Ultimately, patient understood the gravity of the situation and was amenable to intubation.
[2024-11-17] MEDS: IPRATROPIUM BROMIDE 0.5 MG/2.5ML SOLUTION IH ×4 (05:47→23:42)
[2024-11-17] MEDS: LEVALBUTEROL 1.25MG/3ML NEB 1.25 MG IH ×4 (05:47→23:43)
[2024-11-17] MEDS: BUDESONIDE 0.5MG/2ML NEB 0.5 MG IH ×2 (05:48→18:54)
[2024-11-17 06:00] LABS: Lactate Venous 1.7 mmol/L (0.4-2.0); VBG HCO3 15.6 mmol/L (23-30); VBG PCO2 47.6 mmol/L (35-51); VBG PO2 114.8 mmol/L (28-40)
--- NOTE | 2024-11-17 06:00 | XR_ITS ---
PROCEDURE INFORMATION: Exam: XR Chest Exam date and time: 11/17/2024 5:48 AM Age: 84 years old Clinical indication: Other: Pnuemonia; Additional info: Intubated, ards, pnuemonia TECHNIQUE: Imaging protocol: Radiologic exam of the chest. Views: 1 view. COMPARISON: CR XR CHEST PORTABLE 11/16/2024 11:29 PM FINDINGS: Tubes, catheters and devices: Endotracheal tube is stable in satisfactory position. Nasogastric tube within the stomach, its tip beyond the field of view. Overlying EKG leads. Lungs: Persistent interstitial prominence and hazy ground-glass opacities, not significantly changed. Underlying COPD/emphysema. Pleural spaces: No significant pleural effusions. No pneumothorax. Heart/Mediastinum: Cardiomediastinal silhouette is stable. Bones/joints: Bones are stable. IMPRESSION: 1. Support tubes are stable in satisfactory position. 2. No significant change compared to 11/16/2024.
[2024-11-17 06:12] LABS: VBG PH 7.13 mmol/L (7.31-7.41)
[2024-11-17 06:25] LABS: Hematocrit 33.4 % (42.0-52.0); Hemoglobin 10.7 g/dL (14.1-18.0); Immature Granulocytes % 1.8 %; Mean Corpuscular HGB Conc 32.0 g/dL (31.8-35.4); Mean Corpuscular Hemoglobin 31.6 pg (27.0-31.2); Mean Corpuscular Volume 98.5 fl (80-94); Nucleated Red Blood Cells % 0 %; Platelet Count 213 K/mm3 (142-424); Red Blood Count 3.39 M/mm3 (4.60-6.20); Red Cell Distribution Width-SD 61.1 fL; White Blood Count 27.2 K/mm3 (4.8-10.8)
--- NOTE | 2024-11-17 06:25 | PC.NURSE ---
Vent settings currently TV 440 PEEP 14 FIO2 50% RR- 22. Pt has tolerated vent well over night. IV gtts infusing per MAR. Dr Cortes made aware of most recent VBG. Order placed for Bicarb gtt. No other changes over night.
[2024-11-17 06:36] LABS: Alanine Aminotransferase 41 U/L (12-78); Albumin Level 3.3 g/dl (3.5-5.0); Albumin/Globulin Ratio 1.1 (1.1-1.8); Alkaline Phosphatase 142 U/L (38-126); Anion Gap 15.8 mEq/L (5-15); Aspartate Amino Transferase 72 U/L (17-59); Bilirubin,Total 0.7 mg/dl (0.2-1.3); Blood Urea Nitrogen 49 mg/dl (9-20); Calcium 8.8 mg/dl (8.4-10.2); Carbon Dioxide 18 mmol/L (22.0-30.0); Chloride 112 mmol/L (98-107); Creatinine Clearance Estimated 23 mL/min (50-200); Creatinine,Serum 2.80 mg/dl (0.66-1.25); Estimated Glomerular Filt Rate 22 ml/min (>60); GFR (African American) 26 ML/MIN (>60); Globulin 3.0 g/dL (1.3-3.2); Glucose 153 mg/dl (74-100); Potassium 4.8 mmoL/L (3.5-5.1); Sodium 141 mmol/L (136-145); Total Protein,Serum 6.3 g/dl (6.3-8.2)
[2024-11-17] MEDS: SODIUM BICARBONATE 150 MEQ in DEXTROSE 5 % IN WATER 1,000 ML 100 MEQ IV (06:38)
[2024-11-17 06:50] LABS: Total Cells Counted 100
--- NOTE | 2024-11-17 07:01 | PC.NURSE ---
Dr Cortes notified of decreased urine output last night and updated on total urine output of 70ml this shift.
[2024-11-17 08:00] LABS: C-Reactive Protein 105.2 mg/L (0-4)
--- NOTE | 2024-11-17 08:04 | PC.NURSE ---
Dr. Almazan discussed with jahaira about advancing the ET tube to 26cm. Its currently at 24 at the lip. Jahaira okay with advancing 2 more cm to make it 26cm at the lip
--- NOTE | 2024-11-17 08:28 | PC.NURSE ---
Respiratory at bedside to advance the tube to 26 at the lip
[2024-11-17 09:00] LABS: POC Glucose,Bedside 187 gm/dL (70-110)
--- NOTE | 2024-11-17 09:01 | P.PN_ITS ---
Subjective *Date: 11/17/24 *Time: 13:43 Interval history: Intubated overnight. Currently on ventilator with PEEP of 14, volume 440, rate 22, 65% O2. ET tube in place though on chest x-ray this morning, appears high. Patient appears comfortable on propofol and fentanyl. Afebrile overnight. Poor urine output. Kidney function worsening. Medical Exam Vital signs and Labs for Last 24 Hours: Vital Signs Temp Pulse Pulse Resp BP Pulse Ox O2 Del Method 11/17/24 08:30 97.0 F L 112 H 23 117/61 92 L 11/17/24 08:00 113 H 11/17/24 08:00 97.2 F L 115 H 22 124/62 92 L 11/17/24 08:00 92 L Mechanical Ventilation 11/17/24 07:30 97.3 F L 116 H 22 127/61 91 L 11/17/24 07:15 97.3 F L 117 H 23 131/64 91 L Mechanical Ventilation 11/17/24 07:00 97.5 F L 115 H 24 135/65 91 L Mechanical Ventilation 11/17/24 06:47 Mechanical Ventilation 11/17/24 06:45 97.7 F 119 H 23 136/66 91 L Mechanical Ventilation 11/17/24 06:10 119 H 11/17/24 06:10 119 H 11/17/24 06:10 23 91 L 11/17/24 06:00 98.1 F 114 H 22 136/63 91 L Mechanical Ventilation 11/17/24 05:00 97.9 F 117 H 22 133/55 L 90 L Mechanical Ventilation 11/17/24 05:00 Mechanical Ventilation 11/17/24 04:04 26 H 93 L 11/17/24 04:00 110 H 11/17/24 04:00 97.7 F 106 H 18 116/55 L 93 L Mechanical Ventilation 11/17/24 04:00 93 L Mechanical Ventilation 11/17/24 03:00 97.5 F L 107 H 18 120/54 L 91 L Mechanical Ventilation 11/17/24 03:00 Mechanical Ventilation 11/17/24 02:09 27 H 92 L 11/17/24 02:00 97.2 F L 103 H 17 102/51 L 95 11/17/24 01:00 97.2 F L 101 H 15 94/48 L 94 L Mechanical Ventilation 11/17/24 01:00 Mechanical Ventilation 11/17/24 00:30 97.3 F L 103 H 15 97/46 L 93 L Mechanical Ventilation 11/17/24 00:15 91/46 L 11/17/24 00:00 97.7 F 108 H 22 73/43 L 95 Mechanical Ventilation 11/17/24 00:00 Mechanical Ventilation 11/17/24 00:00 109 H 11/16/24 23:50 24 94 L 11/16/24 23:50 111 H 11/16/24 23:50 111 H 11/16/24 23:00 98.2 F 117 H 20 93/43 L 96 Mechanical Ventilation 11/16/24 23:00 Mechanical Ventilation 11/16/24 22:00 94 L 11/16/24 22:00 97.2 F L 125 H 21 123/59 L 95 Mechanical Ventilation 11/16/24 21:00 97.2 F L 132 H 24 133/59 L 94 L Mechanical Ventilation 11/16/24 21:00 Mechanical Ventilation 11/16/24 20:27 32 H 94 L 11/16/24 20:00 130 H 11/16/24 20:00 133 H 26 H 143/57 H 97 Mechanical Ventilation 11/16/24 20:00 94 L Mechanical Ventilation 11/16/24 19:00 130 H 29 H 129/55 L 96 Vapotherm 11/16/24 19:00 Mechanical Ventilation 11/16/24 19:00 130 H 22 129/55 L 96 Mechanical Ventilation 11/16/24 18:15 120 H 11/16/24 18:15 127 H 11/16/24 18:15 96 Mechanical Ventilation 11/16/24 18:00 24 91 L 11/16/24 18:00 117 H 17 139/72 90 L Mechanical Ventilation 11/16/24 17:00 Non-Rebreather, Vapotherm 11/16/24 17:00 113 H 26 H 100/62 L 86 L Non-Rebreather, Vapotherm 11/16/24 16:33 118/61 11/16/24 16:33 119 H 28 H 85 L 11/16/24 16:30 95 H 28 H 90 L 11/16/24 16:01 112/53 L 11/16/24 16:01 116 H 27 H 88 L 11/16/24 16:00 108 H 30 H 89 L Non-Rebreather, Vapotherm 11/16/24 16:00 108 H 11/16/24 16:00 98.3 F 106 H 25 H 112/53 L 91 L Vapotherm 11/16/24 15:30 106 H 22 89 L 11/16/24 15:30 123/60 11/16/24 15:01 91 L Vapotherm 11/16/24 15:00 Vapotherm 11/16/24 15:00 104 H 23 98/60 L 88 L Vapotherm 11/16/24 15:00 98/60 L 11/16/24 14:30 112/68 11/16/24 14:30 101 H 87 L 11/16/24 14:24 80 21 11/16/24 14:00 99 H 27 H 111/60 90 L Vapotherm 11/16/24 14:00 111/60 11/16/24 13:30 108 H 25 H 87 L 11/16/24 13:30 121/57 L 11/16/24 13:00 Vapotherm 11/16/24 13:00 100 H 21 113/59 L 93 L Vapotherm 11/16/24 13:00 113/59 L 11/16/24 12:30 99 H 22 90 L 11/16/24 12:30 100/52 L 11/16/24 12:01 97 H 30 H 89 L 11/16/24 12:01 98/49 L 11/16/24 12:00 105 H 92 L Vapotherm 11/16/24 12:00 96 H 11/16/24 12:00 98.3 F 103 H 30 H 98/49 L 90 L Vapotherm 11/16/24 11:30 97 H 30 H 93 L 11/16/24 11:30 100/49 L 11/16/24 11:00 BiPAP 11/16/24 11:00 107/53 L 11/16/24 11:00 101 H 32 H 107/53 L 97 BiPAP 11/16/24 10:31 107/63 L 11/16/24 10:31 109 H 30 H 96 11/16/24 10:30 102 H 24 98 11/16/24 10:00 11/16/24 10:00 85 19 114/64 99 BiPAP 11/16/24 10:00 114/64 11/16/24 09:30 114/62 11/16/24 09:30 101 H 26 H 97 O2 Flow Rate FiO2 11/17/24 08:30 11/17/24 08:00 11/17/24 08:00 50 11/17/24 08:00 11/17/24 07:30 11/17/24 07:15 50 11/17/24 07:00 50 11/17/24 06:47 11/17/24 06:45 50 11/17/24 06:10 11/17/24 06:10 11/17/24 06:10 50 11/17/24 06:00 80 11/17/24 05:00 11/17/24 05:00 11/17/24 04:04 11/17/24 04:00 11/17/24 04:00 11/17/24 04:00 11/17/24 03:00 11/17/24 03:00 11/17/24 02:09 11/17/24 02:00 11/17/24 01:00 11/17/24 01:00 11/17/24 00:30 11/17/24 00:15 11/17/24 00:00 11/17/24 00:00 11/17/24 00:00 11/16/24 23:50 11/16/24 23:50 11/16/24 23:50 11/16/24 23:00 11/16/24 23:00 11/16/24 22:00 11/16/24 22:00 11/16/24 21:00 11/16/24 21:00 11/16/24 20:27 11/16/24 20:00 11/16/24 20:00 [facility] 11/16/24 20:00 [facility] 11/16/24 19:00 [facility] 11/16/24 19:00 11/16/24 19:00 11/16/24 18:15 11/16/24 18:15 11/16/24 18:15 [facility] 11/16/24 18:00 [facility] 11/16/24 18:00 11/16/24 17:00 40 11/16/24 17:00 40 [facility] 11/16/24 16:33 11/16/24 16:33 11/16/24 16:30 11/16/24 16:01 11/16/24 16:01 11/16/24 16:00 11/16/24 16:00 11/16/24 16:00 11/16/24 15:30 11/16/24 15:30 11/16/24 15:01 40 100 11/16/24 15:00 40 11/16/24 15:00 11/16/24 15:00 11/16/24 14:30 11/16/24 14:30 11/16/24 14:24 11/16/24 14:00 11/16/24 14:00 11/16/24 13:30 11/16/24 13:30 11/16/24 13:00 40 11/16/24 13:00 11/16/24 13:00 11/16/24 12:30 11/16/24 12:30 11/16/24 12:01 11/16/24 12:01 11/16/24 12:00 40 100 11/16/24 12:00 11/16/24 12:00 11/16/24 11:30 11/16/24 11:30 11/16/24 11:00 11/16/24 11:00 11/16/24 11:00 11/16/24 10:31 11/16/24 10:31 11/16/24 10:30 11/16/24 10:00 90 11/16/24 10:00 11/16/24 10:00 11/16/24 09:30 11/16/24 09:30 Intake and Output 11/16/24 11/17/24 11/17/24 23:59 07:59 15:59 Intake Total 1546.107 / 9237.652 9201.132 / 1118.882 11.75 / 1118.882 Output Total 160 / 839 70 / 70 Balance 1386.107 / 4735.009 2404.132 / 1048.882 11.75 / 1048.882 Intake: Intake, Oral Amount 0 / 10 Intake, Total IV Amount 1546.107 / 6546.754 8591.132 / 1118.882 11.75 / 1118.882 Fentanyl Citrate/Pf 1,000 mcg 14.875 / 14.875 In 0.9 % Sodium Chloride 80 ml @ 25 MCG/HR 2.5 mls/hr IV .Q24H [facility] Rx#:[id number] Fentanyl Citrate/Pf 1,000 mcg 100.000 / 100.000 In 0.9 % Sodium Chloride 80 ml @ 25 MCG/HR 2.5 mls/hr IV .Q24H [facility] Rx#:[id number] Lactated Ringers 1000ML 1,000 868.333 / 868.333 ml @ 100 mls/hr IV .Q10H [facility] Rx #:[id number] Lactated Ringers 1000ML 500 ml 500 / 500 @ 250 mls/hr IV .Q2H [facility] Rx#: [id number] Lactated Ringers 1000ML 500 ml 500 / 500 @ 250 mls/hr IV .Q2H [facility] Rx#: [id number] Meropenem 1 gm In 0.9 % Sodium 100 / 100 Chloride 100 ml @ 100 mls/hr IV Q12 [facility] Rx#:[id number] Norepinephrine Bitartrate/D5w 8 128.875 / 140.625 11.75 / 140.625 mg In 250 ml @ 2 MCG/MIN 3.75 mls/hr IV .Q24H [facility] Rx#: [id number] Vancomycin HCl 1,000 mg In 0.9 250 / 250 % Sodium Chloride 250 ml @ 125 mls/hr IV Q24H [facility] Rx#:[id number] propofoL 100 ml @ 10 MCG/KG/MIN 96.107 / 96.107 95.049 / 95.049 4.692 mls/hr IV .[id number] [facility] Rx#:[id number] Output: Output, Urine Amount 125 / 364 Output, Urine Amount (Catheter) 35 / 475 70 / 70 Sims 35 / 475 70 / 70 Other: Number of Unmeasured Voids 0 Weight 79.379 kg Patient Weight 11/17/24 23:59 Weight 79.379 kg Laboratory Results - last 24 hr 11/16/24 07:23: Procalcitonin 5.68 H, VZV IgG Antibody Reactive 11/16/24 09:15: Chlamy pneumoniae PCR Not detected, Adenovirus (PCR) Not detected, B. pertussis DNA (PCR) Not detected, Coronavirus OC43 (PCR) Not detected, Coronavirus HKU1 (PCR) Not detected, Coronavirus 229E (PCR) Not detected, SARS-CoV-2 (PCR) Not detected, Coronavirus NL63 (PCR) Not detected, Human Metapneumovir PCR Not detected, Influenza A (H1) PCR Not detected, Influ A (H1N1/09) PCR Not detected, Influenza A (H3) PCR Not detected, Influenza Type A (PCR) Not detected, Influenza Type B (PCR) Not detected, M. pneumoniae (PCR) Not detected, Parainfluenza 1 (PCR) Not detected, Parainfluenza 2 (PCR) Not detected, Parainfluenza 3 (PCR) Not detected, Parainfluenza 4 (PCR) Not detected, RSV (PCR) Not detected, Entero/Rhino (PCR) Detected A 11/16/24 16:16: Specimen Source Left brachial, O2 % Vapo 40l 100%, ABG pH 7.41, ABG pCO2 27.3 L, ABG pO2 42.5 L, ABG HCO3 16.9 L, ABG Total CO2 17.7 L, ABG O2 Saturation 80 L*, ABG Base Excess -7.8 L, Hair Test Non applicable 11/16/24 18:47: Specimen Source Right radial, O2 % 100, ABG pH 7.18 L*, ABG pCO2 40.3, ABG pO2 102.9 H, ABG HCO3 14.8 L, ABG Total CO2 16.0 L, ABG O2 Saturation 96, ABG Base Excess -13.6 L, Hair Test Patient unable, Vent Rate 18, Tidal Volume 440, PEEP 12 11/16/24 22:16: POC Glucose 148 H 11/16/24 23:10: VBG pH 7.12 L, VBG pCO2 55.1 H, VBG pO2 131.2 H, VBG HCO3 17.5 L , VBG Total CO2 19.2 L, VBG O2 Saturation 97.9 H, VBG Base Excess -11.9 L, VBG Lactic Acid 1.7 11/17/24 00:14: POC Glucose 164 H 11/17/24 05:53: WBC 27.2 H*, RBC 3.39 L, Hgb 10.7 L, Hct 33.4 L, MCV 98.5 H, MCH 31.6 H, MCHC 32.0, RDW 16.8, Plt Count 213, MPV 9.7, Neut % (Auto) 92.4 H, Lymph % (Auto) 2.1 L, [place] % (Auto) 3.6, Eos % (Auto) 0.0 L, Baso % (Auto) 0.1, Neut # (Auto) 25.2 H, Lymph # (Auto) 0.6 L, [place] # (Auto) 1.0, Eos # (Auto) 0.0, Baso # (Auto) 0.0, Total Counted 100, Neutrophils % (Manual) 92 H, Lymphocytes % (Manual) 5 L, Monocytes % (Manual) 3, Sodium 141, Potassium 4.8 D, Chloride 112 H, Carbon Dioxide 18 L, Anion Gap 15.8 H, BUN 49 H, Creatinine 2.80 H D, Estimated Creat Clear 23, Estimated GFR 22 L, Est GFR ( Amer) 26 L D, Glucose 153 H D, Calcium 8.8, Total Bilirubin 0.7, AST 72 H, ALT 41, Alkaline Phosphatase 142 H, C-Reactive Protein 105.2 H, Total Protein 6.3, Albumin 3.3 L, Globulin 3.0, Albumin/Globulin Ratio 1.1 11/17/24 05:55: VBG pH 7.13 L, VBG pCO2 47.6, VBG pO2 114.8 H, VBG HCO3 15.6 L, VBG Total CO2 17.1 L, VBG O2 Saturation 98.0 H, VBG Base Excess -13.5 L, VBG Lactic Acid 1.7 11/17/24 08:51: POC Glucose 187 H I & O for Labs for Last 24 Hours: Intake & Output 11/14/24 11/15/24 11/16/24 11/17/24 23:59 23:59 23:59 23:59 Intake Total 1797.100 / 1917.100 690 / 690 1906.107 / 8318.353 1111.882 / 1118.882 Output Total 1635 / 2385 2865 / 3165 839 / 839 70 / 70 Balance 162.100 / -467.900 -2175 / -2475 1067.107 / 5923.048 9663.882 / 1048.882 Weight 77.111 kg 77.111 kg 78.2 kg 79.379 kg Microbiology Reports for the Last 24 Hours: Microbiology 11/11/24 23:27 Blood Blood Culture - Final NO GROWTH AFTER 5 DAYS 11/11/24 23:27 Blood Blood Culture - Final NO GROWTH AFTER 5 DAYS 11/16/24 17:46 Sputum - Endotracheal Tube Aspirate Gram Stain - Final Constitutional: Present moderate distress, average body habitus and obtunded Comment:: Intubated and sedated Head: Present atraumatic and normocephalic Comment:: ET tube 24 cm at lip, OG in place Respiratory: Present patient mechanically ventilated, prolonged expiratory phase and wheezes; Absent rhonchi Cardiac: Present Reg Rate and Rhythm and Regular Rhythm GI: Present soft and hypoactive bowel sounds; Absent distention or tenderness Extremities: Present normal inspection and full ROM; Absent edema Skin: Present intact; Absent erythema Comment:: Sedated, pupils reactive to light Assessment and Plan *Assessment and plan (1) Acute respiratory failure with hypoxia: Status: Acute Category: Medical Code(s): J96.01 - Acute respiratory failure with hypoxia (2) Pneumonia: Status: Acute Qualifiers: Laterality: left Lung location: lower lobe of lung Pneumonia type: due to unspecified organism Qualified Code(s): J18.9 - Pneumonia, unspecified organism Category: Medical Code(s): J18.9 - Pneumonia, unspecified organism (3) Enterovirus infection: Status: Acute Category: Medical Code(s): B34.1 - Enterovirus infection, unspecified (4) Asthma: Status: Acute Category: Medical Code(s): J45.909 - Unspecified asthma, uncomplicated (5) Polyneuropathy: Status: Chronic Category: Medical Code(s): G62.9 - Polyneuropathy, unspecified (6) Dementia: Problem Comment: Slowly progressive memory deficit currently on Namenda 10 mg p.o. twice daily. BMI 22.8, weight loss, mild anorexia. He is not a candidate for donezepil at this time Status: Chronic Qualifiers: Dementia behavioral or psychological symptom: without behavioral, psychotic, or mood disturbance or anxiety Dementia severity: mild Dementia type: unspecified type Qualified Code(s): F03.A0 - Unspecified dementia, mild, without behavioral disturbance, psychotic disturbance, mood disturbance, and anxiety Category: Medical Code(s): F03.90 - Unspecified dementia, unspecified severity, without behavioral disturbance, psychotic disturbance, mood disturbance, and anxiety (7) COPD (chronic obstructive pulmonary disease): Status: Chronic Qualifiers: COPD type: emphysema Emphysema type: centrilobular Qualified Code(s): J43.2 - Centrilobular emphysema Category: Medical Code(s): J44.9 - Chronic obstructive pulmonary disease, unspecified (8) Neuropathy: Problem Comment: Initial diagnosis at [facility]?Dr. Carrion. 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 Brisk reflexes likely due to cervical spondylosis without myelopathy and B12 deficiency 09/30/2023: Right hand weakness with muscle wasting involving intrinsic muscles, (ulnar nerve/C8-T1 dermatome distribution) Status: Chronic Category: Medical Code(s): G62.9 - Polyneuropathy, unspecified (9) ILD (interstitial lung disease): Status: Chronic Category: Medical Code(s): J84.9 - Interstitial pulmonary disease, unspecified (10) Klebsiella pneumoniae pneumonia: Status: Acute Category: Medical Code(s): J15.0 - Pneumonia due to Klebsiella pneumoniae Anshu Magdaleno is a 84-year-old male with medical history significant for CAD with 8 stents (follows with [facility]), asthma on room air, anxiety/depression, complex partial seizures, dementia who unfortunately presented back to the ED shortly after discharge with shortness of breath. He was discharged in stable condition for treatment of aspiration pneumonia, on room air without respiratory distress and did well at home for a few hours but began feeling short of breath, found to be hypoxic in the ED. Respiratory panel positive for rhino/entero-virus. Met for severe sepsis with tachycardia, leukocytosis, identified infection (pneumonia) with endorgan damage in the setting of respiratory failure. Intubated overnight. Continues to require mechanical ventilation. Findings consistent with severe ARDS at this time. Continues to require ICU level care. Pulmonology assisting with care. Problems addressed as follows: #Septic shock #Severe sepsis, present on admission #Acute hypoxic respiratory failure #ARDS #Aspiration pneumonia, Klebsiella pneumonia #Rhino/entero-virus viral pneumonia #Hemoptysis #Asthma ? Sputum culture was positive on 11/10 for Klebsiella. Comprehensive respiratory panel positive 11/12 for rhino/enterovirus. ?Intubated overnight. Continue ventilator with PEEP of 14, rate 22, volume 44, FiO2 weaned to 50%. Goal sats greater 90%. -Repeat chest x-ray this morning per my review with stable ARDS. No significant improvement in bilateral airspace disease, of note ET tube approximately 7 cm above luther, will advance 2 cm -Discussed case with pulmonology, continue broad-spectrum antibiotics with vancomycin, cefepime IV, levofloxacin 750 mg every 48 hours renally dosing. -Continue propofol and fentanyl for sedation. -Continue Levophed for goal MAP greater than 65 ? Repeat limited ECHO 11/17/2024 showed hyperdynamic LV function with LVEF 70%. - Continue oral sodium bicarb 650 mg twice daily, LR at 100 mL/h. ?White cell count up to 27, hemoglobin 10.7. Kidney function worsening with BUN 49, creatinine 2.8. Potassium 4.8. - Tube aspirate pending for culture - DuoNebs every 6 hours scheduled and Pulmicort twice daily. ? Follow-up morning CBC, CMP, procalcitonin, CRP. BMP ordered for the afternoon to monitor kidney function #TREVOR on CKD Oliguria ?Baseline creatinine 1.5, creatinine worsening at 2.8, BUN 49. - Urine output is decreased. Received significant IV fluids yesterday. Hold on any other fluids at this time. Will consider Lasix challenge in the morning if not improving urinary output. BMP ordered for the afternoon to monitor kidney function. #History of CAD with stents #Hypertension ? Extensive coronary disease, and 8 stents in the past. Follows with [facility]. ? ECHO 11/10/2024 with normal biventricular systolic function. BNP 742, diuresed x 1 today as stated above. ? Cardiology consulted, s/p PCI 11/11/2024 with nonocclusive coronary arteries. ? Continue home aspirin, statin. ? Entresto held due to soft pressures during admission. #Anxiety/depression: Continue home desvenlafaxine, buspirone. #Complex partial seizures: Continue home lamotrigine 150 mg twice daily. #Dementia: Hold home memantine in setting of intubation Initiate tube feeds Head of bed greater than 30 degrees MiraLAX 17 g twice daily per tube as patient has not had a bowel movement morn 3 days ICU/Critical care attestation This patient is critically ill with 38 minutes devoted solely to this patient managing life/organ supporting interventions that required physician assessment. This includes time spent making adjustments in ventilator settings, IV fluid administration, titration of pressors, adjustments of medications, discussion of patient with consultants and other care providers as well as updating patient and/or family (if patient by virtue of his/her condition is unable to participate in decision making). This does not include time spent performing separately billed procedures. Time is not concurrent with that of other providers.
[2024-11-17] MEDS: BUSPIRONE HCL 5 MG TABLET PO ×2 (09:26→21:11)
[2024-11-17] MEDS: FAMOTIDINE 20MG/2ML VIAL 20 MG IV ×2 (09:26→21:11)
[2024-11-17] MEDS: BRIMONIDINE 0.2% OPHTH SOLN 5ML BOTTLE OP ×2 (09:26→21:12)
[2024-11-17] MEDS: ASPIRIN EC 81MG TABLET 81 MG PO (09:26)
--- NOTE | 2024-11-17 09:39 | P.PN_ITS ---
Subjective *Date: 11/17/24 *Time: 14:44 Interval history: Worsening respiratory distress needing intubation mechanical ventilatory support Pulmonology Exam Inpatient Vital signs and Labs for Last 24 Hours: Temp Pulse Resp BP Pulse Ox O2 Del Method O2 Flow Rate 97.0 F L 109 H 22 112/52 L 92 L Mechanical Ventilation 40 11/17/24 09:00 11/17/24 09:00 11/17/24 09:00 11/17/24 09:00 11/17/24 09:00 11/17/24 09:00 11/16/24 17:00 FiO2 50 11/17/24 09:00 Laboratory Results - last 24 hr 11/16/24 07:23: VZV IgG Antibody Reactive 11/16/24 09:15: Chlamy pneumoniae PCR Not detected, Adenovirus (PCR) Not detected, B. pertussis DNA (PCR) Not detected, Coronavirus OC43 (PCR) Not detected, Coronavirus HKU1 (PCR) Not detected, Coronavirus 229E (PCR) Not detected, SARS-CoV-2 (PCR) Not detected, Coronavirus NL63 (PCR) Not detected, Human Metapneumovir PCR Not detected, Influenza A (H1) PCR Not detected, Influ A (H1N1/09) PCR Not detected, Influenza A (H3) PCR Not detected, Influenza Type A (PCR) Not detected, Influenza Type B (PCR) Not detected, M. pneumoniae (PCR) Not detected, Parainfluenza 1 (PCR) Not detected, Parainfluenza 2 (PCR) Not detected, Parainfluenza 3 (PCR) Not detected, Parainfluenza 4 (PCR) Not detected, RSV (PCR) Not detected, Entero/Rhino (PCR) Detected A 11/16/24 16:16: Specimen Source Left brachial, O2 % Vapo 40l 100%, ABG pH 7.41, ABG pCO2 27.3 L, ABG pO2 42.5 L, ABG HCO3 16.9 L, ABG Total CO2 17.7 L, ABG O2 Saturation 80 L*, ABG Base Excess -7.8 L, Hair Test Non applicable 11/16/24 18:47: Specimen Source Right radial, O2 % 100, ABG pH 7.18 L*, ABG pCO2 40.3, ABG pO2 102.9 H, ABG HCO3 14.8 L, ABG Total CO2 16.0 L, ABG O2 Saturation 96, ABG Base Excess -13.6 L, Hair Test Patient unable, Vent Rate 18, Tidal Volume 440, PEEP 12 11/16/24 22:16: POC Glucose 148 H 11/16/24 23:10: VBG pH 7.12 L, VBG pCO2 55.1 H, VBG pO2 131.2 H, VBG HCO3 17.5 L , VBG Total CO2 19.2 L, VBG O2 Saturation 97.9 H, VBG Base Excess -11.9 L, VBG Lactic Acid 1.7 11/17/24 00:14: POC Glucose 164 H 11/17/24 05:53: WBC 27.2 H*, RBC 3.39 L, Hgb 10.7 L, Hct 33.4 L, MCV 98.5 H, MCH 31.6 H, MCHC 32.0, RDW 16.8, Plt Count 213, MPV 9.7, Neut % (Auto) 92.4 H, Lymph % (Auto) 2.1 L, [place] % (Auto) 3.6, Eos % (Auto) 0.0 L, Baso % (Auto) 0.1, Neut # (Auto) 25.2 H, Lymph # (Auto) 0.6 L, [place] # (Auto) 1.0, Eos # (Auto) 0.0, Baso # (Auto) 0.0, Total Counted 100, Neutrophils % (Manual) 92 H, Lymphocytes % (Manual) 5 L, Monocytes % (Manual) 3, Sodium 141, Potassium 4.8 D, Chloride 112 H, Carbon Dioxide 18 L, Anion Gap 15.8 H, BUN 49 H, Creatinine 2.80 H D, Estimated Creat Clear 23, Estimated GFR 22 L, Est GFR ( Amer) 26 L D, Glucose 153 H D, Calcium 8.8, Total Bilirubin 0.7, AST 72 H, ALT 41, Alkaline Phosphatase 142 H, C-Reactive Protein 105.2 H, Total Protein 6.3, Albumin 3.3 L, Globulin 3.0, Albumin/Globulin Ratio 1.1 11/17/24 05:55: VBG pH 7.13 L, VBG pCO2 47.6, VBG pO2 114.8 H, VBG HCO3 15.6 L, VBG Total CO2 17.1 L, VBG O2 Saturation 98.0 H, VBG Base Excess -13.5 L, VBG Lactic Acid 1.7 11/17/24 08:51: POC Glucose 187 H I & O for Labs for Last 24 Hours: Intake & Output 11/14/24 11/15/24 11/16/24 11/17/24 23:59 23:59 23:59 23:59 Intake Total 1797.100 / 1917.100 690 / 690 1906.107 / 8277.731 0009.882 / 1118.882 Output Total 1635 / 2385 2865 / 3165 839 / 839 75 / 75 Balance 162.100 / -467.900 -2175 / -2475 1067.107 / 7527.670 1375.882 / 1043.882 Weight 170 lb 170 lb 0.01 oz 172 lb 6.424 oz 175 lb Microbiology Reports for the Last 24 Hours: Microbiology 11/11/24 23:27 Blood Blood Culture - Final NO GROWTH AFTER 5 DAYS 11/11/24 23:27 Blood Blood Culture - Final NO GROWTH AFTER 5 DAYS 11/16/24 17:46 Sputum - Endotracheal Tube Aspirate Gram Stain - Final Constitutional: Present severe distress Comment:: Intubated and Sedated Head: Present normocephalic and atraumatic Neck: Present normal inspection and trachea midline Respiratory: Present patient mechanically ventilated, rhonchi and diminished air movement; Absent prolonged expiratory phase or wheezes Cardiac: Present S1/S2 and Tachycardia GI: Present soft; Absent distention or tenderness Skin: Present intact; Absent cyanosis Neuro: Absent alert, awake or oriented x 3 Comment:: Intubated and sedated Extremities: Present normal inspection; Absent clubbing or cyanosis Psychiatric: Present unable to assess Assessment and Plan *Assessment and plan (1) Pneumonia: Status: Acute Category: Medical Code(s): J18.9 - Pneumonia, unspecified organism (2) Acute respiratory failure with hypoxia: Status: Acute Category: Medical Code(s): J96.01 - Acute respiratory failure with hypoxia (3) On mechanically assisted ventilation: Status: Acute Category: Medical Code(s): Z99.11 - Dependence on respirator [ventilator] status Plan Mr. Magdaleno is a 84-year-old male with history of asthma COPD overlap syndrome, cervical spondylosis with polyneuropathy bilateral lower extremity weakness, baseline not using any oxygen supplementation discharged to hospital yesterday after being treated for pneumonia on examination on room air with no respiratory distress prior to discharge when home noted no acute worsening respiratory distress presented to the hospital with x-ray showing significant worsening airspace disease needing new oxygen requirements and presented to the ER and pulmonary was called for further evaluation and management. Afebrile. Hemodynamically stable. Mild neutrophilic predominant leukocytosis relatively stable from yesterday. Respiratory viral PCR panel positive for entero and rhinovirus. CTA PE protocol no evidence of pulmonary embolism. Bilateral diffuse ground glass opacities concerning for atypical/viral pneumonia. Echo from most recent admission normal LVEF. Diastolic dysfunction. Pro-Mart within normal limits. CRP elevated at 62.6. Hemoglobin stable. Monitor closely. Blood cultures no growth 24 hours. Nasal MRSA PCR negative. Repeat comprehensive respiratory viral PCR panel negative. CRP improving. Interval update: Worsening respiratory distress needing intubation mechanical ventilatory support. Tracheal aspirate pending. Worsening leukocytosis. Continue to receive vancomycin and cefepime and levofloxacin. Blood gas continue to show non-anion gap metabolic acidosis in the setting of worsening renal function with worsening BUN/creatinine. Plan: Continue analogous sedation with propofol and fentanyl. Continue deep sedation. Continue mechanical ventilatory support. Improving requirements currently PEEP of 14 FiO2 50% and tidal volume of 440 with saturations maintaining at 90% and above. ET tube advanced this morning. Chest x-ray stable with no significant change from prior, continued to diffuse bilateral infiltrates. Continue to receive vancomycin and cefepime on levofloxacin. Awaiting tracheal aspirate. Slight worsening leukocytosis. Afebrile. Continue to receive methylprednisolone 125 mg twice daily. CRP continued to improve now at 1 of 5.2 DuoNebs every 6 hours along with Pulmicort Q12 scheduled Hemodynamically unstable. Needed low-dose pressors overnight. Wean. Received 1/2 L LR since yesterday so far. Will hold off on any further volume infusions at this point of time. Abdomen soft nondistended. Initiate tube feeds. Oliguric TREVOR. Significant decline in his urine output and worsening BUN/creatinine. Also showing non-anion gap metabolic acidosis. Monitor clinically, follow with repeat BMP and will consider Lasix challenge Renally dose medications Sodium bicarb 650 mg 3 times daily - Continue mechanical ventilatory support - Continue AnalgoSedation with Propofol and Fentanyl with CPOT gal less than or euqal to 2 and RASS goal of to 2 (No need for deep sedation) - VAP bundle Recommend elevate head of the bed at 30 to 45 degrees Recommend oral care with chlorhexidne Recommend GI ulcer prophylaxis - Famotidine 20mg IV BID Recommend chemical DVT prophylaxis Total critical care time spent on this patient is 35 minutes managing acute hypoxic respiratory failure needing mechanical ventilation. This time spent include reviewing test results including interpreting chest x-rays, labs and arterial blood gas, optimizing the ventilator settings,formulating plan of care, discussing the plan of care with the team and the nursing staff. Total critical care time spent on this patient is 35 minutes managing acute hypoxic respiratory failure needing HFNC and Non-Invasive ventilation. This time spent include reviewing test results including interpreting chest x-rays, labs, blood gas, optimizing the HFNC and Non-Invasive ventilation settings,formulating plan of care, discussing the plan of care with the team and the nursing staff.
--- NOTE | 2024-11-17 09:40 | PC.NURSE ---
Dr. Campo at bedside at this time. He wants patient propofol turned up to 20mcg/min from 10mcg/min to see how the patient would do on the vent. patient is rebreathing after a breath from the vent. Jahaira wants the fentanyl drip turned to 40mcg/min from 25mcg/min. He does not want a repeat chest xray. Maria Teresa wants to be notified it patients endtidal gets to 40. Jahaira wants to be notified if patient is continuing to rebreath after every breath. Jahaira does not want to try and titrate the sedation
--- NOTE | 2024-11-17 10:05 | PC.NURSE ---
RESP CARE NOTE: Ventilator settings changed per Dr Campo at bedside. Pt is now in Pressure control mode, with a pressure limit of 30 cmH2O, FIO2 of 50%, Peep of 14 cmH2O, Rate of 22 bpm, and I time at .75 secs, and pressure trigger is 3 cmH2O. Maintain SPO2 above 90%, and EtCO2 below 40 mmHg.
--- NOTE | 2024-11-17 10:05 | PC.NURSE ---
fentanyl increased to 40 mcg/min per Maria Teresa who is @ bedside
--- NOTE | 2024-11-17 10:26 | PC.NURSE ---
Vent setting by Jahaira FIO2 at 50% Tidal volume 440 Resp Rate 22 PEEP 14
--- NOTE | 2024-11-17 10:28 | PC.NURSE ---
paged sales representative uniforms to initiate tube feed per annangi
--- NOTE | 2024-11-17 11:06 | DIET.NUTRFU ---
Patient was intubated yesterday, consulted for tubefeeding. Patient is on propofol- received 206.44ml since intubated providing 227kcal. Nutritional needs are 1975kcal/79gm protein and 1580ml/day. Will start jevity 1.5 at 20ml/hr with goal of 45ml/hr providing 1080ml/1620kcalo/68gm protein and 842ml free water. He is receiving additional fluid with ABT via IV, will flush with minimal 100ml L4V=617ml+501=8265dz/day. Reviewed labs: BUN 49/2.8, glucose >150. LBM 11/12, multiple pain meds in place. Will notify provider. Will review TF with nursing
[2024-11-17 11:21] LABS: Procalcitonin 4.46 ng/mL (0.0-2.0)
[2024-11-17] MEDS: CEFEPIME HCL 1 GM in 0.9 % SODIUM CHLORIDE 50 ML IV (11:58)
[2024-11-17] MEDS: POLYETHYLENE GLYCOL 3350 17 GM PACKET PO ×2 (12:28→21:11)
[2024-11-17 12:30] LABS: POC Glucose,Bedside 170 gm/dL (70-110)
[2024-11-17 13:24] LABS: Vancomycin,Trough 27.0 ug/mL (5.0-10.0)
--- NOTE | 2024-11-17 13:45 | PC.NURSE ---
tube feed initiated.
--- NOTE | 2024-11-17 13:45 | PC.NURSE ---
Called pharmacy about patient vanc trough. Its 27. At this time pharamcy advised to hold the vanc and they would readjust in the computer
--- NOTE | 2024-11-17 13:53 | EXP.PHA.CONS ---
Pharmacy Consult Date: 11/17/24 Time: 13:53 Referring provider: DR COOK Reason for Consult:: VANCOMYCIN TROUGH LEVEL OBTAINED Allergies Allergy/AdvReac Type Severity Reaction Status Date / Time levetiracetam (From [facility]) AdvReac Severe anger, Verified 10/06/24 14:44 depression, gait disturbance Home Medications ?Medication ?Instructions ?Recorded ?Confirmed ?Type aspirin 81 mg tablet,delayed 81 mg PO DAILY Heart disease 03/19/17 11/12/24 History release (Adult Low Dose Aspirin) sacubitril 24 mg-valsartan 26 mg 1 tab PO BID Heart failure 09/21/21 11/12/24 History tablet Held on 11/11/24. Instructions: Resume on 11/18/24. Your blood pressures were low normal during admission, please follow-up with cardiology to discuss restarting this medication. sildenafil (pulm.hypertension) 20 20 mg PO DIRECTED PRN sexual 02/06/22 11/12/24 Rx mg tablet activity #40 tabs cholecalciferol (vitamin D3) 25 25 mcg PO DAILY 07/26/22 11/12/24 History mcg (1,000 unit) capsule gabapentin 300 mg capsule 300 mg PO HS #30 caps 08/27/23 11/12/24 Rx (Neurontin) lamotrigine 100 mg tablet 150 mg (1.5 x 100 mg) PO BID 06/10/24 11/12/24 Rx Complex partial seizure #270 tabs brimonidine 0.2 % eye drops 1 drp Eye-Both BID 07/06/24 11/12/24 History buspirone 5 mg tablet 5 mg PO BID 07/06/24 11/12/24 History desvenlafaxine succinate 50 mg 50 mg PO DAILY 07/06/24 11/12/24 History tablet,extended release 24 hr diazepam 2 mg tablet 2 mg PO DAILY PRN Anxiety 07/06/24 11/12/24 History fluticasone 250 mcg-salmeterol 50 1 inh inhalation BID 90 days #180 07/06/24 11/12/24 Rx mcg/dose blistr powdr for ea inhalation latanoprost 0.005 % eye drops 1 drp Eye-Both HS 07/06/24 11/12/24 History atorvastatin 40 mg tablet 40 mg PO HS 11/09/24 11/12/24 History ondansetron 4 mg disintegrating 4 mg PO Q8 PRN Nausea And Vomiting 11/09/24 11/12/24 History tablet trazodone 50 mg tablet 100 mg PO HS PRN Sleep 11/09/24 11/12/24 History albuterol sulfate 90 mcg/actuation 2 inh inhalation Q4HP PRN 11/10/24 11/12/24 History aerosol inhaler shortness of breath or wheezing memantine 10 mg tablet 10 mg PO BID 11/10/24 11/12/24 History levofloxacin 750 mg tablet 750 mg PO Q48H 4 days #2 tabs 11/11/24 11/12/24 Rx New Prescriptions to Start Prescriptions: Height: 1.83 m Weight: 79.379 kg Laboratory Results:: Laboratory Results - last 24 hr 11/16/24 07:23: VZV IgG Antibody Reactive 11/16/24 16:16: Specimen Source Left brachial, O2 % Vapo 40l 100%, ABG pH 7.41, ABG pCO2 27.3 L, ABG pO2 42.5 L, ABG HCO3 16.9 L, ABG Total CO2 17.7 L, ABG O2 Saturation 80 L*, ABG Base Excess -7.8 L, Hair Test Non applicable 11/16/24 18:47: Specimen Source Right radial, O2 % 100, ABG pH 7.18 L*, ABG pCO2 40.3, ABG pO2 102.9 H, ABG HCO3 14.8 L, ABG Total CO2 16.0 L, ABG O2 Saturation 96, ABG Base Excess -13.6 L, Hair Test Patient unable, Vent Rate 18, Tidal Volume 440, PEEP 12 11/16/24 22:16: POC Glucose 148 H 11/16/24 23:10: VBG pH 7.12 L, VBG pCO2 55.1 H, VBG pO2 131.2 H, VBG HCO3 17.5 L, VBG Total CO2 19.2 L, VBG O2 Saturation 97.9 H, VBG Base Excess -11.9 L, VBG Lactic Acid 1.7 11/17/24 00:14: POC Glucose 164 H 11/17/24 05:53: WBC 27.2 H*, RBC 3.39 L, Hgb 10.7 L, Hct 33.4 L, MCV 98.5 H, MCH 31.6 H, MCHC 32.0, RDW 16.8, Plt Count 213, MPV 9.7, Neut % (Auto) 92.4 H, Lymph % (Auto) 2.1 L, [place] % (Auto) 3.6, Eos % (Auto) 0.0 L, Baso % (Auto) 0.1, Neut # (Auto) 25.2 H, Lymph # (Auto) 0.6 L, [place] # (Auto) 1.0, Eos # (Auto) 0.0, Baso # (Auto) 0.0, Total Counted 100, Neutrophils % (Manual) 92 H, Lymphocytes % (Manual) 5 L, Monocytes % (Manual) 3, Sodium 141, Potassium 4.8 D, Chloride 112 H, Carbon Dioxide 18 L, Anion Gap 15.8 H, BUN 49 H, Creatinine 2.80 H D, Estimated Creat Clear 23, Estimated GFR 22 L, Est GFR ( Amer) 26 L D, Glucose 153 H D, Calcium 8.8, Total Bilirubin 0.7, AST 72 H, ALT 41, Alkaline Phosphatase 142 H, C-Reactive Protein 105.2 H, Total Protein 6.3, Albumin 3.3 L, Globulin 3.0, Albumin/Globulin Ratio 1.1, Procalcitonin 4.46 H 11/17/24 05:55: VBG pH 7.13 L, VBG pCO2 47.6, VBG pO2 114.8 H, VBG HCO3 15.6 L, VBG Total CO2 17.1 L, VBG O2 Saturation 98.0 H, VBG Base Excess -13.5 L, VBG Lactic Acid 1.7 11/17/24 08:51: POC Glucose 187 H 11/17/24 11:40: POC Glucose 170 H 11/17/24 12:17: Vancomycin Trough 27.0 H Medical History: Medical History (Updated 11/15/24 @ 00:00 by Background Dalorena) Acute respiratory failure with hypoxia Tinnitus of right ear Sensorineural hearing loss (SNHL) of both ears Hearing loss Tinnitus Restrictive lung disease History of 2019 novel coronavirus disease (COVID-19) Asthma-COPD overlap syndrome Abnormal PFT Moderate persistent asthma ILD (interstitial lung disease) Centrilobular emphysema Dyspnea on exertion LAURA on CPAP Bradycardia Assessment and Plan Assessment and plan all Dx Assessment and Plan for all problems:: Pharmacokinetic dosing service Weight: 79.379 Kilograms Vancomycin single level analysis: Current dose being given: 1000 mg Current dosing interval: 24 hrs Current infusion time (hrs): 2 Single level Trough Data: Trough level obtained: 27 mcg/ml Timing of trough - # of hrs before next dose: 0.5 Hrs (11/17/24 12:17) Desired peak: 35 mcg/ml Desired trough: 12.5 mcg/ml Estimated PK Parameters: New rate constant (miguel ángel): 0.022 hr-1 Half-life: 31.51 Hours Vd from levels: 55.57 Liters (0.7 L/kg) CLvanco=?? 1.223 L/hr Estimated New Dose and Interval Recommended dose: 1308.6 mg Recommended interval: 48.8 Hrs Recommendations: Give Vancomycin 1250 mg q 48 hrs TO START 11/18/24 AT 13:00, OBTAINING ANOTHER TROUGH LEVEL PRIOR TO NEXT DOSE TO ENSURE PATIENT IS CLEARING VANCOMYCIN. Infuse over 2 hrs Expected Cpeak: 33.7 mcg/mL Expected Ctrough: 12.2 mcg/mL AUC 0-24 /MARY ANNE Data: MARY ANNE 0.5 mcg/mL:?? AUC/MARY ANNE:? 1022.1 MARY ANNE 1.0 mcg/mL:?? AUC/MARY ANNE:? 511.0
[2024-11-17] MEDS: FENTANYL CITRATE/PF 1,000 MCG in 0.9 % SODIUM CHLORIDE 80 ML 4 MCG IV (14:01)
[2024-11-17 15:47] LABS: Lactate Venous 1.5 mmol/L (0.4-2.0); VBG HCO3 14.7 mmol/L (23-30); VBG PCO2 36.0 mmol/L (35-51); VBG PH 7.23 mmol/L (7.31-7.41); VBG PO2 73.5 mmol/L (28-40)
[2024-11-17] MEDS: NOREPINEPHRINE BITARTRATE/D5W 8 MG/250 ML PLAST..BAG 13.13 MG IV (15:51)
[2024-11-17 17:44] LABS: POC Glucose,Bedside 131 gm/dL (70-110)
[2024-11-17 17:52] LABS: Anion Gap 15.9 mEq/L (5-15); Blood Urea Nitrogen 58 mg/dl (9-20); Calcium 8.7 mg/dl (8.4-10.2); Carbon Dioxide 18 mmol/L (22.0-30.0); Chloride 110 mmol/L (98-107); Creatinine Clearance Estimated 18 mL/min (50-200); Creatinine,Serum 3.50 mg/dl (0.66-1.25); Estimated Glomerular Filt Rate 17 ml/min (>60); GFR (African American) 20 ML/MIN (>60); Glucose 129 mg/dl (74-100); Potassium 4.9 mmoL/L (3.5-5.1); Sodium 139 mmol/L (136-145)
[2024-11-17 17:59] LABS: Lactate Venous 1.5 mmol/L (0.4-2.0); VBG HCO3 18.5 mmol/L (23-30); VBG PCO2 56.9 mmol/L (35-51); VBG PH 7.13 mmol/L (7.31-7.41); VBG PO2 141.8 mmol/L (28-40)
--- NOTE | 2024-11-17 18:14 | PC.NURSE ---
Notified Dr. Campo about patients CMP when it came back. Patients creatinine is now elevated to 3.5, jahaira also ask about the patients end tidal its 35 at this time. Jahaira is going to tell RT to come up and change respiration rate to 24 from 22. Jahaira still wants the end tidal under 40. Jahaira is also going to consult with Dr. Almazan about giving patient lasix due to creatinine
[2024-11-17] MEDS: FUROSEMIDE 40MG/4ML VIAL 160 MG IV (18:32)
--- NOTE | 2024-11-17 18:34 | PC.NURSE ---
Dr Almazan ordering for Lasix for patient. 160mg one time dose for a lasix challenge. Need to monitor to see if patient has 200 out of urine within 6 hours
--- NOTE | 2024-11-17 19:14 | PC.NURSE ---
Patient has had a GCS of 3, intubated with ET tube at 26 at the lip, og in place at 50 at the lip. Patient on tube feeds going through the og at 20 mls hr. Patient only had 30 cc of urine out all day. MD aware. Doing a lasix challenge to see if patient has atleast 200 cc out within 6 hours. Propofol is at 30mcg/min, Fentanyl is at 40 mcg/min, Levophed is at 6mcg/min. Family has been at bedside off and on today. Patient is q2 turn. Patient is 6 hour finger stick due to being npo and getting tube feeds.
[2024-11-17 20:45] LABS: POC Glucose,Bedside 143 gm/dL (70-110)
[2024-11-17] MEDS: LEVOFLOXACIN/D5W 750 MG/150 ML 750 MG/150 ML PIGGYBACK 100 MG IV (21:11)
[2024-11-17] MEDS: MONTELUKAST SODIUM 10MG TAB 10 MG PO (21:11)
[2024-11-17] MEDS: LATANOPROST 0.005% OPTH SOLN 2.5ML OP (21:11)
--- NOTE | 2024-11-17 23:31 | PC.NURSE ---
notified provider per verbal order that pt has had less than 200mL of urine out since lasix challenge around 1845. Pt has only had 25mL of urine out. No new orders at this time.
[2024-11-18] VITALS (58 sets, daily range): BP systolic 77–126; BP diastolic 40–60; PULSE 97–119; RESP 14–30; TEMP 36.2–36.8; O2SAT 45–97; BMI 23.6
[2024-11-18] MEDS: CEFEPIME HCL 1 GM in 0.9 % SODIUM CHLORIDE 50 ML IV ×2 (01:12→11:01)
[2024-11-18] MEDS: METHYLPREDNISOLONE SOD SUCC 125MG VIAL 125 MG IV ×2 (01:12→11:53)
--- NOTE | 2024-11-18 06:00 | XR_ITS ---
PROCEDURE INFORMATION: Exam: XR Chest Exam date and time: 11/18/2024 5:48 AM Age: 84 years old Clinical indication: Device placement; Ett placement (vent status); Additional info: Intubated, ards, pnuemonia TECHNIQUE: Imaging protocol: Radiologic exam of the chest. Views: 1 view. COMPARISON: 1. CR XR CHEST PORTABLE 11/17/2024 5:48 AM 2. CR XR CHEST PORTABLE 11/16/2024 11:29 PM FINDINGS: Tubes, catheters and devices: Endotracheal tube terminates approximately 7.5 cm proximal to the luther. Enteric tube terminates in the proximal stomach, side port is at/near the level of the GE junction. Lungs: Bilateral interstitial and hazy opacities, not significantly changed given differences in degree of inspiration, may represent edema and/or infectious/inflammatory process, superimposed upon chronic fibrosis. Pleural spaces: No pleural effusion. No pneumothorax. Heart/Mediastinum: Cardiomediastinal silhouette is normal. Bones/joints: No acute abnormality. IMPRESSION: 1. Bilateral interstitial and hazy opacities, not significantly changed, may represent edema and/or infectious/inflammatory process, superimposed upon chronic fibrosis. 2. Enteric tube side port is at/near the GE junction, consider advancing for optimal placement.
[2024-11-18] MEDS: LEVALBUTEROL 1.25MG/3ML NEB 1.25 MG IH ×2 (06:16→11:07)
[2024-11-18] MEDS: IPRATROPIUM BROMIDE 0.5 MG/2.5ML SOLUTION IH ×2 (06:16→11:07)
[2024-11-18] MEDS: BUDESONIDE 0.5MG/2ML NEB 0.5 MG IH (06:16)
[2024-11-18 06:18] LABS: POC Glucose,Bedside 147 gm/dL (70-110)
[2024-11-18 06:25] LABS: Hematocrit 32.1 % (42.0-52.0); Hemoglobin 10.0 g/dL (14.1-18.0); Immature Granulocytes % 1.5 %; Mean Corpuscular HGB Conc 31.2 g/dL (31.8-35.4); Mean Corpuscular Hemoglobin 31.3 pg (27.0-31.2); Mean Corpuscular Volume 100.3 fl (80-94); Nucleated Red Blood Cells % 0.1 %; Platelet Count 161 K/mm3 (142-424); Red Blood Count 3.20 M/mm3 (4.60-6.20); Red Cell Distribution Width-SD 63.4 fL; White Blood Count 21.9 K/mm3 (4.8-10.8)
[2024-11-18] MEDS: NOREPINEPHRINE BITARTRATE/D5W 8 MG/250 ML PLAST..BAG 22.5 MG IV (06:51)
[2024-11-18 07:08] LABS: Total Cells Counted 100
[2024-11-18 07:09] LABS: Macrocytosis 1+
[2024-11-18] MEDS: BUSPIRONE HCL 5 MG TABLET PO (08:38)
[2024-11-18] MEDS: FAMOTIDINE 20MG/2ML VIAL 20 MG IV (08:38)
[2024-11-18] MEDS: POLYETHYLENE GLYCOL 3350 17 GM PACKET PO (08:38)
[2024-11-18] MEDS: ASPIRIN EC 81MG TABLET 81 MG PO (08:38)
[2024-11-18] MEDS: BRIMONIDINE 0.2% OPHTH SOLN 5ML BOTTLE OP (08:39)
[2024-11-18 08:45] LABS: Alanine Aminotransferase 51 U/L (12-78); Albumin Level 3.1 g/dl (3.5-5.0); Albumin/Globulin Ratio 1.0 (1.1-1.8); Alkaline Phosphatase 148 U/L (38-126); Anion Gap 18.2 mEq/L (5-15); Aspartate Amino Transferase 72 U/L (17-59); Bilirubin,Total 0.7 mg/dl (0.2-1.3); Blood Urea Nitrogen 67 mg/dl (9-20); Calcium 8.1 mg/dl (8.4-10.2); Carbon Dioxide 18 mmol/L (22.0-30.0); Chloride 108 mmol/L (98-107); Creatinine Clearance Estimated 15 mL/min (50-200); Estimated Glomerular Filt Rate 13 ml/min (>60); GFR (African American) 16 ML/MIN (>60); Globulin 3.0 g/dL (1.3-3.2); Glucose 139 mg/dl (74-100); Potassium 5.2 mmoL/L (3.5-5.1); Sodium 139 mmol/L (136-145); Total Protein,Serum 6.1 g/dl (6.3-8.2)
[2024-11-18 08:56] LABS: Creatinine,Serum 4.30 mg/dl (0.66-1.25)
--- NOTE | 2024-11-18 08:57 | DIET.NUTRFU ---
Addendum entered by Melva Elizondo RD, LD 11/18/24 11:39: Reviewed tubefeeding with Dr Almazan and decided to stay at 30ml/hr and re-eval tomorrow if still here. Original Note: Spoke to nursing this morning, tolerating tubefeeding at 20ml/hr, will increase to 30ml now and then to goal rate of 45ml in 4 hours. Nursing reported providers are planning to transfer to another hospital today. He did have a BM on 11/17. Urine output poor yesterday, was given lasix 11/17. Labs today k 5.2H, BUN 67/4.3H (worse), glucose 29-170. Continues on propofol given 178.3ml/196kcal. Will continue to monitor TF progress.
--- NOTE | 2024-11-18 08:59 | P.PN_ITS ---
Subjective *Date: 11/18/24 *Time: 11:28 Interval history: No acute respiratory vents overnight. Stable ventilator settings. Pulmonology Exam Inpatient Vital signs and Labs for Last 24 Hours: Temp Pulse Resp BP Pulse Ox O2 Del Method O2 Flow Rate 97.9 F 119 H 22 99/51 L 94 L Mechanical Ventilation 45 11/18/24 08:00 11/18/24 07:00 11/18/24 08:00 11/18/24 08:00 11/18/24 08:25 11/18/24 08:25 11/18/24 08:00 FiO2 45 11/18/24 08:25 Laboratory Results - last 24 hr 11/16/24 07:23: Legionella pneumophila Ab Non reactive 11/17/24 05:53: Procalcitonin 4.46 H 11/17/24 08:51: POC Glucose 187 H 11/17/24 11:40: POC Glucose 170 H 11/17/24 12:17: Vancomycin Trough 27.0 H 11/17/24 15:45: VBG pH 7.23 L, VBG pCO2 36.0, VBG pO2 73.5 H, VBG HCO3 14.7 L, VBG Total CO2 15.8 L, VBG O2 Saturation 94.6 H, VBG Base Excess -12.9 L, VBG Lactic Acid 1.5 11/17/24 17:27: VBG pH 7.13 L, VBG pCO2 56.9 H, VBG pO2 141.8 H, VBG HCO3 18.5 L , VBG Total CO2 20.3 L, VBG O2 Saturation 98.7 H, VBG Base Excess -10.7 L, VBG Lactic Acid 1.5, Sodium 139, Potassium 4.9, Chloride 110 H, Carbon Dioxide 18 L, Anion Gap 15.9 H, BUN 58 H, Creatinine 3.50 H D, Estimated Creat Clear 18, Estimated GFR 17 L*, Est GFR ( Amer) 20 L D, Glucose 129 H, Calcium 8.7 11/17/24 17:37: POC Glucose 131 H 11/17/24 19:51: POC Glucose 143 H 11/18/24 05:41: WBC 21.9 H*, RBC 3.20 L, Hgb 10.0 L, Hct 32.1 L, MCV 100.3 H, MCH 31.3 H, MCHC 31.2 L, RDW 17.2, Plt Count 161, MPV 10.2, Neut % (Auto) 92.3 H , Lymph % (Auto) 3.0 L, [place] % (Auto) 3.0, Eos % (Auto) 0.0 L, Baso % (Auto) 0.2, Neut # (Auto) 20.2 H, Lymph # (Auto) 0.7, [place] # (Auto) 0.7, Eos # (Auto) 0.0, Baso # (Auto) 0.0, Total Counted 100, Neutrophils % (Manual) 94 H, Lymphocytes % (Manual) 3 L, Monocytes % (Manual) 3, Platelet Estimate Normal, Macrocytosis 1+, Sodium 139, Potassium 5.2 H, Chloride 108 H, Carbon Dioxide 18 L, Anion Gap 18.2 H, BUN 67 H, Creatinine 4.30 H D, Estimated Creat Clear 15, Estimated GFR 13 L*, Est GFR ( Amer) 16 L*, Glucose 139 H, Calcium 8.1 L, Total Bilirubin 0.7, AST 72 H, ALT 51, Alkaline Phosphatase 148 H, Total Protein 6.1 L, Albumin 3.1 L, Globulin 3.0, Albumin/Globulin Ratio 1.0 L 11/18/24 06:11: POC Glucose 147 H I & O for Labs for Last 24 Hours: Intake & Output 11/15/24 11/16/24 11/17/24 11/18/24 23:59 23:59 23:59 23:59 Intake Total 690 / 690 1906.107 / 8764.090 0744.121 / 2099.121 352.884 / 352.884 Output Total 2865 / 3165 839 / 839 145 / 145 34 / 34 Balance -2175 / -2475 1067.107 / 1134.440 8806.121 / 1954.121 318.884 / 318.884 Weight 170 lb 0.01 oz 172 lb 6.424 oz 175 lb 173 lb 15.115 oz Microbiology Reports for the Last 24 Hours: Microbiology 11/16/24 17:46 Sputum - Endotracheal Tube Aspirate Yeast/Fungus Culture Result 1 - Final Not Reportable 11/16/24 17:46 Sputum - Endotracheal Tube Aspirate Yeast/Fungus Culture Result 2 - Final Not Reportable 11/16/24 17:46 Sputum - Endotracheal Tube Aspirate Yeast/Fungus Culture Result 3 - Final Not Reportable 11/16/24 17:46 Sputum - Endotracheal Tube Aspirate Yeast/Fungus Culture Result 4 - Final Not Reportable 11/16/24 17:46 Sputum - Endotracheal Tube Aspirate Yeast Susceptibility - Fi nal Not Reportable 11/16/24 17:46 Sputum - Endotracheal Tube Aspirate Gram Stain - Final 11/16/24 17:46 Sputum - Endotracheal Tube Aspirate Sputum Culture - Final 11/16/24 13:45 Sputum - Expectorated Sputum Gram Stain - Final Constitutional: Present severe distress Comment:: Intubated and Sedated Head: Present normocephalic and atraumatic Neck: Present normal inspection and trachea midline Respiratory: Present patient mechanically ventilated, rhonchi and diminished air movement; Absent prolonged expiratory phase or wheezes Cardiac: Present S1/S2 and Tachycardia GI: Present soft; Absent distention or tenderness Skin: Present intact; Absent cyanosis Neuro: Absent alert, awake or oriented x 3 Comment:: Intubated and sedated Extremities: Present normal inspection; Absent clubbing or cyanosis Psychiatric: Present unable to assess Assessment and Plan *Assessment and plan (1) Pneumonia: Status: Acute Category: Medical Code(s): J18.9 - Pneumonia, unspecified organism (2) Acute respiratory failure with hypoxia: Status: Acute Category: Medical Code(s): J96.01 - Acute respiratory failure with hypoxia (3) On mechanically assisted ventilation: Status: Acute Category: Medical Code(s): Z99.11 - Dependence on respirator [ventilator] status Plan Mr. Magdaleno is a 84-year-old male with history of asthma COPD overlap syndrome, cervical spondylosis with polyneuropathy bilateral lower extremity weakness, baseline not using any oxygen supplementation discharged to hospital yesterday after being treated for pneumonia on examination on room air with no respiratory distress prior to discharge when home noted no acute worsening respiratory distress presented to the hospital with x-ray showing significant worsening airspace disease needing new oxygen requirements and presented to the ER and pulmonary was called for further evaluation and management. Afebrile. Hemodynamically stable. Mild neutrophilic predominant leukocytosis relatively stable from yesterday. Respiratory viral PCR panel positive for entero and rhinovirus. CTA PE protocol no evidence of pulmonary embolism. Bilateral diffuse ground glass opacities concerning for atypical/viral pneumonia. Echo from most recent admission normal LVEF. Diastolic dysfunction. Pro-Mart within normal limits. CRP elevated at 62.6. Hemoglobin stable. Monitor closely. Blood cultures no growth 24 hours. Nasal MRSA PCR negative. Repeat comprehensive respiratory viral PCR panel negative. CRP improving. Interval update: Worsening renal function with worsening BUN/creatinine. No significant response despite diuretic challenge. Oliguric TREVOR. Afebrile. Hemodynamically stable. Improving leukocytosis. Chest x-ray relatively stable Plan: Continue analogous sedation with propofol and fentanyl. Continue deep sedation. Continue mechanical ventilatory support. Stable ventilator settings, PEEP of 14 FiO2 40% tidal volume of 440 and a rate of 22. Chest x-ray from this morning stable with no significant change from prior, continued to show diffuse bilateral infiltrates. Discontinue vancomycin. Continue cefepime and levofloxacin. Requested yeast identification. Procalcitonin stable, elevate from admission in setting of worsening renal function. CRP improving. Improving leukocytosis. Afebrile. Hemodynamically stable. Will hold off on initiating antifungals at this point of time. Continue to receive methylprednisolone 125 mg twice daily. DuoNebs every 6 hours along with Pulmicort Q12 scheduled Hemodynamically stable. Off pressors Abdomen soft nondistended. Continue tube feeds Oliguric TREVOR. Continued worsening oliguric TREVOR along with electrolyte derangements including hyperkalemia Renally dose medications Continue sodium bicarb 650 mg 3 times daily - Continue mechanical ventilatory support - Continue AnalgoSedation with Propofol and Fentanyl with CPOT gal less than or euqal to 2 and RASS goal of to 2 (No need for deep sedation) - VAP bundle Recommend elevate head of the bed at 30 to 45 degrees Recommend oral care with chlorhexidne Recommend GI ulcer prophylaxis - Famotidine 20mg IV BID Recommend chemical DVT prophylaxis Total critical care time spent on this patient is 35 minutes managing acute hypoxic respiratory failure needing mechanical ventilation. This time spent include reviewing test results including interpreting chest x-rays, labs and arterial blood gas, optimizing the ventilator settings,formulating plan of care, discussing the plan of care with the team and the nursing staff. Total critical care time spent on this patient is 35 minutes managing acute hypoxic respiratory failure needing HFNC and Non-Invasive ventilation. This time spent include reviewing test results including interpreting chest x-rays, labs, blood gas, optimizing the HFNC and Non-Invasive ventilation settings,formulating plan of care, discussing the plan of care with the team and the nursing staff.
[2024-11-18 09:12] LABS: Lactate Venous 1.4 mmol/L (0.4-2.0); VBG HCO3 15.2 mmol/L (23-30); VBG PCO2 39.0 mmol/L (35-51); VBG PH 7.21 mmol/L (7.31-7.41); VBG PO2 79.3 mmol/L (28-40)
[2024-11-18 09:34] LABS: POC Glucose,Bedside 180 gm/dL (70-110)
[2024-11-18 09:49] LABS: C-Reactive Protein 86.7 mg/L (0-4)
[2024-11-18 10:03] LABS: Procalcitonin 4.37 ng/mL (0.0-2.0)
--- NOTE | 2024-11-18 10:52 | PC.NURSE ---
Attempted to turn patient to his left side and his blood pressures dropped to the 70's/40's. Levo titrated per mar and patient turned back to supine.
[2024-11-18] MEDS: LACTATED RINGERS 1000ML 250 ML 500 ML IV (12:25)
[2024-11-18 12:33] LABS: Vancomycin,Trough 23.2 ug/mL (5.0-10.0)
--- NOTE | 2024-11-18 13:22 | P.PN_ITS ---
Subjective *Date: 11/18/24 *Time: 13:22 Interval history: Remains sedated. Stable vent settings. Poor response to Lasix challenge overnight. Requiring increased doses of norepinephrine today. Discussed case with family this morning, would like to pursue transfer to higher level of care. Discussed patient's poor prognosis and tenuous condition. Medical Exam Vital signs and Labs for Last 24 Hours: Vital Signs Temp Pulse Pulse Resp BP BP Pulse Ox 11/18/24 12:00 104 H 11/18/24 12:00 92 L 11/18/24 12:00 97.7 F 104 H 16 87/49 L 93 L 11/18/24 11:48 84/46 L 11/18/24 11:45 97.7 F 106 H 16 89/50 L 93 L 11/18/24 11:36 97.7 F 105 H 15 87/44 L 93 L 11/18/24 11:30 97.7 F 105 H 17 86/50 L 93 L 11/18/24 11:20 97.7 F 104 H 19 86/45 L 95 11/18/24 11:15 97.7 F 105 H 22 87/42 L 97 11/18/24 11:08 107 H 11/18/24 11:08 108 H 11/18/24 11:00 97.7 F 107 H 17 93/46 L 93 L 11/18/24 11:00 11/18/24 10:50 97.9 F 99 H 18 98/47 L 92 L 11/18/24 10:47 97.7 F 104 H 18 80/42 L 92 L 11/18/24 10:45 97.7 F 104 H 17 86/43 L 92 L 11/18/24 10:44 30 H 92 L 11/18/24 10:41 97.7 F 99 H 18 77/43 L 92 L 11/18/24 10:39 97.7 F 98 H 18 77/40 L 92 L 11/18/24 10:30 97.7 F 99 H 21 87/40 L 91 L 11/18/24 10:15 97.7 F 103 H 20 99/50 L 90 L 11/18/24 10:00 97.7 F 105 H 20 96/48 L 91 L 11/18/24 09:45 97.7 F 107 H 18 94/48 L 92 L 11/18/24 09:30 99/54 L 11/18/24 09:15 97.7 F 109 H 21 92/46 L 92 L 11/18/24 09:00 97.7 F 106 H 20 97/53 L 93 L 11/18/24 09:00 11/18/24 08:45 97.7 F 111 H 19 90/46 L 92 L 11/18/24 08:25 94 L 11/18/24 08:00 110 H 11/18/24 08:00 97.9 F 22 99/51 L 92 L 11/18/24 07:00 97.9 F 119 H 22 94/48 L 91 L 11/18/24 06:57 11/18/24 06:15 109 H 11/18/24 06:15 111 H 11/18/24 06:15 25 H 90 L 11/18/24 06:00 98.2 F 113 H 22 110/58 L 92 L 11/18/24 05:00 98.1 F 110 H 21 116/52 L 92 L 11/18/24 05:00 11/18/24 04:15 97.9 F 109 H 20 105/47 L 93 L 11/18/24 04:10 27 H 92 L 11/18/24 04:00 110 H 11/18/24 04:00 110 H 93 L 11/18/24 03:00 97.7 F 108 H 21 103/47 L 92 L 11/18/24 02:55 11/18/24 02:30 101/47 L 11/18/24 02:05 28 H 93 L 11/18/24 02:00 97.5 F L 107 H 21 101/43 L 91 L 11/18/24 01:15 97.5 F L 106 H 19 104/46 L 93 L 11/18/24 01:00 11/18/24 00:00 100 H 11/18/24 00:00 97.2 F L 102 H 18 102/50 L 91 L 11/17/24 23:48 99 H 91 L 11/17/24 23:24 102 H 11/17/24 23:24 98 H 11/17/24 23:24 28 H 91 L 11/17/24 23:00 97.2 F L 102 H 19 95/44 L 90 L 11/17/24 23:00 11/17/24 22:03 29 H 96 11/17/24 22:00 97.5 F L 101 H 20 90/47 L 96 11/17/24 21:00 97.7 F 107 H 20 91/47 L 93 L 11/17/24 21:00 11/17/24 20:33 29 H 94 L 11/17/24 20:00 110 H 11/17/24 20:00 104 H 94 L 11/17/24 20:00 97.7 F 107 H 21 100/46 L 94 L 11/17/24 19:00 11/17/24 19:00 98.1 F 103 H 24 98/53 L 99 11/17/24 18:55 106 H 11/17/24 18:55 103 H 11/17/24 18:55 94 L 11/17/24 18:55 27 H 94 L 11/17/24 18:00 98.1 F 106 H 20 109/50 L 93 L 11/17/24 17:00 11/17/24 17:00 11/17/24 17:00 97.9 F 108 H 21 108/52 L 91 L 11/17/24 16:00 97.9 F 106 H 22 111/53 L 91 L 11/17/24 16:00 102 H 11/17/24 16:00 91 L 11/17/24 15:30 97.7 F 106 H 21 110/56 L 91 L 11/17/24 15:00 97.7 F 105 H 21 107/53 L 91 L 11/17/24 15:00 11/17/24 14:30 97.5 F L 105 H 19 106/52 L 91 L 11/17/24 14:15 97.5 F L 105 H 20 106/56 L 92 L 11/17/24 14:00 97.5 F L 105 H 19 110/55 L 92 L 11/17/24 13:45 97.5 F L 105 H 23 110/55 L 96 O2 Del Method O2 Flow Rate FiO2 11/18/24 12:00 11/18/24 12:00 Mechanical Ventilation 45 11/18/24 12:00 Mechanical Ventilation 45 11/18/24 11:48 11/18/24 11:45 Mechanical Ventilation 45 11/18/24 11:36 Mechanical Ventilation 45 11/18/24 11:30 Mechanical Ventilation 45 11/18/24 11:20 Mechanical Ventilation 45 11/18/24 11:15 Mechanical Ventilation 45 11/18/24 11:08 11/18/24 11:08 11/18/24 11:00 Mechanical Ventilation 45 11/18/24 11:00 Mechanical Ventilation 11/18/24 10:50 Mechanical Ventilation 45 11/18/24 10:47 Mechanical Ventilation 45 11/18/24 10:45 Mechanical Ventilation 45 11/18/24 10:44 45 11/18/24 10:41 Mechanical Ventilation 45 11/18/24 10:39 Mechanical Ventilation 45 11/18/24 10:30 Mechanical Ventilation 45 11/18/24 10:15 Mechanical Ventilation 45 11/18/24 10:00 Mechanical Ventilation 45 11/18/24 09:45 Mechanical Ventilation 45 11/18/24 09:30 11/18/24 09:15 Mechanical Ventilation 45 11/18/24 09:00 Mechanical Ventilation 45 11/18/24 09:00 Mechanical Ventilation 11/18/24 08:45 Mechanical Ventilation 45 11/18/24 08:25 Mechanical Ventilation 45 11/18/24 08:00 11/18/24 08:00 Mechanical Ventilation 45 11/18/24 07:00 Mechanical Ventilation 45 11/18/24 06:57 Mechanical Ventilation 11/18/24 06:15 11/18/24 06:15 11/18/24 06:15 45 11/18/24 06:00 Mechanical Ventilation 45 11/18/24 05:00 Mechanical Ventilation 45 11/18/24 05:00 Mechanical Ventilation 11/18/24 04:15 Mechanical Ventilation 45 11/18/24 04:10 45 11/18/24 04:00 11/18/24 04:00 Mechanical Ventilation 45 11/18/24 03:00 Mechanical Ventilation 45 11/18/24 02:55 Mechanical Ventilation 11/18/24 02:30 11/18/24 02:05 45 11/18/24 02:00 Mechanical Ventilation 40 11/18/24 01:15 Mechanical Ventilation 40 11/18/24 01:00 Mechanical Ventilation 11/18/24 00:00 11/18/24 00:00 Mechanical Ventilation 40 11/17/24 23:48 Mechanical Ventilation 40 11/17/24 23:24 11/17/24 23:24 11/17/24 23:24 40 11/17/24 23:00 Mechanical Ventilation 40 11/17/24 23:00 Mechanical Ventilation 11/17/24 22:03 50 11/17/24 22:00 Mechanical Ventilation 11/17/24 21:00 Mechanical Ventilation 50 11/17/24 21:00 Mechanical Ventilation 11/17/24 20:33 50 11/17/24 20:00 11/17/24 20:00 Mechanical Ventilation 50 11/17/24 20:00 Mechanical Ventilation 11/17/24 19:00 Mechanical Ventilation 11/17/24 19:00 Mechanical Ventilation 11/17/24 18:55 11/17/24 18:55 11/17/24 18:55 Mechanical Ventilation 50 11/17/24 18:55 50 11/17/24 18:00 Mechanical Ventilation 11/17/24 17:00 Mechanical Ventilation 11/17/24 17:00 Mechanical Ventilation 11/17/24 17:00 Mechanical Ventilation 11/17/24 16:00 11/17/24 16:00 11/17/24 16:00 Mechanical Ventilation 11/17/24 15:30 11/17/24 15:00 11/17/24 15:00 Mechanical Ventilation 11/17/24 14:30 Mechanical Ventilation 50 11/17/24 14:15 Mechanical Ventilation 50 11/17/24 14:00 Mechanical Ventilation 50 11/17/24 13:45 Intake and Output 11/17/24 11/18/24 11/18/24 23:59 07:59 15:59 Intake Total 302.075 / 2099.121 335.412 / 1059.976 724.564 / 1059.976 Output Total 50 / 145 30 / 36 6 / 36 Balance 252.075 / 1954.121 305.412 / 1023.976 718.564 / 1023.976 Intake: Intake, Oral Amount 110 / 110 Intake, Tube Irrigant Amount Intake, Other Amount 15 15 Intake, Total IV Amount 302.075 / 2099.121 335.412 / 904.976 569.564 / 904.976 Cefepime HCl 1 gm In 0.9 % 50 / 100 50 / 100 Sodium Chloride 50 ml @ 100 mls /hr IV Q12H [facility] Rx#:[id number] Lactated Ringers 1000ML 250 ml 250 / 250 @ 500 mls/hr IV .Q30M [facility] Rx#: [id number] Levofloxacin/D5w 750 mg/150 ml 150 / 150 750 mg In 150 ml @ 100 mls/hr IV Q48H [facility] Rx#:[id number] Norepinephrine Bitartrate/D5w 8 58.443 / 308.443 205.625 / 379.914 174.289 / 379.914 mg In 250 ml @ 2 MCG/MIN 3.75 mls/hr IV .Q24H [facility] Rx#: [id number] Sodium Bicarbonate 150 meq In 0 / 353.333 Dextrose 5 % in Water 1,000 ml @ 100 mls/hr IV .[id number] [facility] Rx #:[id number] propofoL 100 ml @ 30 MCG/KG/MIN 93.632 / 269.012 79.787 / 175.062 95.275 / 175.062 14.076 mls/hr IV .Q7H7M [facility] Rx #:[id number] Output: Output, Urine Amount 0 / 0 Output, Urine Amount (Catheter) 50 / 135 30 / 36 6 36 Sims 50 / 135 30 / 36 36 Other: Intake, Other Source Saline Solution Number of Unmeasured Voids 0 0 Number of Bowel Movements 1 Weight 78.9 kg Patient Weight 11/18/24 23:59 Weight 78.9 kg Laboratory Results - last 24 hr 11/16/24 07:23: Legionella pneumophila Ab Non reactive 11/17/24 12:17: Vancomycin Trough 27.0 H 11/17/24 15:45: VBG pH 7.23 L, VBG pCO2 36.0, VBG pO2 73.5 H, VBG HCO3 14.7 L, VBG Total CO2 15.8 L, VBG O2 Saturation 94.6 H, VBG Base Excess -12.9 L, VBG Lactic Acid 1.5 11/17/24 17:27: VBG pH 7.13 L, VBG pCO2 56.9 H, VBG pO2 141.8 H, VBG HCO3 18.5 L , VBG Total CO2 20.3 L, VBG O2 Saturation 98.7 H, VBG Base Excess -10.7 L, VBG Lactic Acid 1.5, Sodium 139, Potassium 4.9, Chloride 110 H, Carbon Dioxide 18 L, Anion Gap 15.9 H, BUN 58 H, Creatinine 3.50 H D, Estimated Creat Clear 18, Estimated GFR 17 L*, Est GFR ( Amer) 20 L D, Glucose 129 H, Calcium 8.7 11/17/24 17:37: POC Glucose 131 H 11/17/24 19:51: POC Glucose 143 H 11/18/24 05:41: WBC 21.9 H*, RBC 3.20 L, Hgb 10.0 L, Hct 32.1 L, MCV 100.3 H, MCH 31.3 H, MCHC 31.2 L, RDW 17.2, Plt Count 161, MPV 10.2, Neut % (Auto) 92.3 H , Lymph % (Auto) 3.0 L, [place] % (Auto) 3.0, Eos % (Auto) 0.0 L, Baso % (Auto) 0.2, Neut # (Auto) 20.2 H, Lymph # (Auto) 0.7, [place] # (Auto) 0.7, Eos # (Auto) 0.0, Baso # (Auto) 0.0, Total Counted 100, Neutrophils % (Manual) 94 H, Lymphocytes % (Manual) 3 L, Monocytes % (Manual) 3, Platelet Estimate Normal, Macrocytosis 1+, Sodium 139, Potassium 5.2 H, Chloride 108 H, Carbon Dioxide 18 L, Anion Gap 18.2 H, BUN 67 H, Creatinine 4.30 H D, Estimated Creat Clear 15, Estimated GFR 13 L*, Est GFR ( Amer) 16 L*, Glucose 139 H, Calcium 8.1 L, Total Bilirubin 0.7, AST 72 H, ALT 51, Alkaline Phosphatase 148 H, C-Reactive Protein 86.7 H, Total Protein 6.1 L, Albumin 3.1 L, Globulin 3.0, Albumin/Globulin Ratio 1.0 L, Procalcitonin 4.37 H 11/18/24 06:11: POC Glucose 147 H 11/18/24 08:59: VBG pH 7.21 L, VBG pCO2 39.0, VBG pO2 79.3 H, VBG HCO3 15.2 L, VBG Total CO2 16.4 L, VBG O2 Saturation 95.3 H, VBG Base Excess -12.7 L, VBG Lactic Acid 1.4 11/18/24 09:21: POC Glucose 180 H 11/18/24 11:52: Vancomycin Trough 23.2 H I & O for Labs for Last 24 Hours: Intake & Output 11/15/24 11/16/24 11/17/24 11/18/24 23:59 23:59 23:59 23:59 Intake Total 690 / 690 1906.107 / 9419.659 3697.121 / 9.121 1059.976 / 1059.976 Output Total 2865 / 3165 839 / 839 145 / 145 36 / 36 Balance -2175 / -2475 1067.107 / 8449.877 7513.121 / 7411.895 0856.976 / 1023.976 Weight 77.111 kg 78.2 kg 79.379 kg 78.9 kg Microbiology Reports for the Last 24 Hours: Microbiology 11/16/24 17:46 Sputum - Endotracheal Tube Aspirate Yeast/Fungus Culture Result 1 - Final Not Reportable 11/16/24 17:46 Sputum - Endotracheal Tube Aspirate Yeast/Fungus Culture Result 2 - Final Not Reportable 11/16/24 17:46 Sputum - Endotracheal Tube Aspirate Yeast/Fungus Culture Resu lt 3 - Final Not Reportable 11/16/24 17:46 Sputum - Endotracheal Tube Aspirate Yeast/Fungus Culture Result 4 - Final Not Reportable 11/16/24 17:46 Sputum - Endotracheal Tube Aspirate Yeast Susceptibility - Final Not Reportable 11/16/24 17:46 Sputum - Endotracheal Tube Aspirate Gram Stain - Final 11/16/24 17:46 Sputum - Endotracheal Tube Aspirate Sputum Culture - Final 11/16/24 13:45 Sputum - Expectorated Sputum Gram Stain - Final Constitutional: Present average body habitus and obtunded Comment:: Intubated and sedated Head: Present atraumatic and normocephalic Comment:: ET tube 26 cm at lip, OG in place Respiratory: Present patient mechanically ventilated, prolonged expiratory phase, wheezes and diminished air movement; Absent rhonchi Cardiac: Present Reg Rate and Rhythm and Regular Rhythm GI: Present soft and normal bowel sounds; Absent distention or tenderness Extremities: Present normal inspection and full ROM; Absent edema Skin: Present intact; Absent erythema Comment:: Sedated, pupils reactive to light Assessment and Plan *Assessment and plan (1) Acute respiratory failure with hypoxia: Status: Acute Category: Medical Code(s): J96.01 - Acute respiratory failure with hypoxia (2) Pneumonia: Status: Acute Qualifiers: Laterality: left Lung location: lower lobe of lung Pneumonia type: due to unspecified organism Qualified Code(s): J18.9 - Pneumonia, unspecified organism Category: Medical Code(s): J18.9 - Pneumonia, unspecified organism (3) Enterovirus infection: Status: Acute Category: Medical Code(s): B34.1 - Enterovirus infection, unspecified (4) Asthma: Status: Acute Category: Medical Code(s): J45.909 - Unspecified asthma, uncomplicated (5) Polyneuropathy: Status: Chronic Category: Medical Code(s): G62.9 - Polyneuropathy, unspecified (6) Dementia: Problem Comment: Slowly progressive memory deficit currently on Namenda 10 mg p.o. twice daily. BMI 22.8, weight loss, mild anorexia. He is not a candidate for donezepil at this time Status: Chronic Qualifiers: Dementia type: unspecified type Dementia severity: mild Dementia behavioral or psychological symptom: without behavioral, psychotic, or mood disturbance or anxiety Qualified Code(s): F03.A0 - Unspecified dementia, mild, without behavioral disturbance, psychotic disturbance, mood disturbance, and anxiety Category: Medical Code(s): F03.90 - Unspecified dementia, unspecified severity, without behavioral disturbance, psychotic disturbance, mood disturbance, and anxiety (7) COPD (chronic obstructive pulmonary disease): Status: Chronic Qualifiers: COPD type: emphysema Emphysema type: centrilobular Qualified Code(s): J43.2 - Centrilobular emphysema Category: Medical Code(s): J44.9 - Chronic obstructive pulmonary disease, unspecified (8) Neuropathy: Problem Comment: Initial diagnosis at [facility]?Dr. Carrion. 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 Brisk reflexes likely due to cervical spondylosis without myelopathy and B12 deficiency 09/30/2023: Right hand weakness with muscle wasting involving intrinsic muscles, (ulnar nerve/C8-T1 dermatome distribution) Status: Chronic Category: Medical Code(s): G62.9 - Polyneuropathy, unspecified (9) ILD (interstitial lung disease): Status: Chronic Category: Medical Code(s): J84.9 - Interstitial pulmonary disease, unspecified (10) Klebsiella pneumoniae pneumonia: Status: Acute Category: Medical Code(s): J15.0 - Pneumonia due to Klebsiella pneumoniae Plan Kalia Magdaleno is a 84-year-old male with medical history significant for CAD with 8 stents (follows with [facility]), asthma on room air, anxiety/depression, complex partial seizures, dementia who unfortunately presented back to the ED shortly after discharge with shortness of breath. He was discharged in stable condition for treatment of aspiration pneumonia, on room air without respiratory distress and did well at home for a few hours but began feeling short of breath, found to be hypoxic in the ED. Respiratory panel positive for rhino/entero-virus. Met for severe sepsis with tachycardia, leukocytosis, identified infection (pneumonia) with endorgan damage in the setting of respiratory failure. Patient and dated on evening of 11/16. Having worse hypotension today. Escalating vasopressors. Failed Lasix challenge last night. Attempting transfer. Currently on waitlist at . Contacting [facility]. Findings consistent with severe ARDS, septic shock, and uric renal failure. Continues to require ICU level care. Pulmonology/CC assisting with care. Problems addressed as follows: #Septic shock #Severe sepsis, present on admission #Acute hypoxic respiratory failure #ARDS #Aspiration pneumonia, Klebsiella pneumonia #Rhino/entero-virus viral pneumonia #Hemoptysis #Asthma ? Sputum culture was positive on 11/10 for Klebsiella. Comprehensive respiratory panel positive 11/12 for rhino/enterovirus. ?Intubated 11/16. ET tube 26 cm at lip. Continue mechanical ventilation with PEEP of 14, rate 24, volume 440, FiO2 45%. Goal sats greater 90%. - Worsening hypotension today. Escalating norepinephrine. Will add vasopressin at 0.03 units/min -Received 250 cc bolus of LR with minimal improvement in blood pressure. -Repeat chest x-ray obtained and reviewed this morning by myself, stable severe ARDS. Persistent bilateral diffuse airspace opacification with increased interstitial markings. -White count improved to 21.9, hemoglobin stable at 10. Platelets 161. -Tube feeds at 30 cc/h -Discussed case with pulmonology, continue broad-spectrum antibiotics with vancomycin, cefepime IV, levofloxacin 750 mg every 48 hours renally dosing. -Continue propofol and fentanyl for sedation. -Continue Levophed for goal MAP greater than 65 ? Repeat limited ECHO 11/17/2024 showed hyperdynamic LV function with LVEF 70%. - Continue oral sodium bicarb 650 mg twice daily, LR at 100 mL/h. ?ET tube aspirate pending for culture - DuoNebs every 6 hours scheduled and Pulmicort twice daily. - CRP down from greater than 320 on 11/14. Level of a 6.7 today ? Follow-up morning CBC, CMP, procalcitonin, CRP. BMP ordered for the afternoon to monitor kidney function #TREVOR on CKD Acute renal failure with anuria ?Baseline creatinine 1.5, renal functioning worsening, increased from creatinine 2.8 yesterday morning to 4.3 this morning. BUN 67. Potassium 5.2. - Lasix challenge yesterday at 2 mg/kg (160 mg). Had 85 cc of output overnight. Failed challenge. Needs transfer for consideration for dialysis and nephrology consult. #History of CAD with stents #Hypertension ? Extensive coronary disease, and 8 stents in the past. Follows with [facility] [place]. ? ECHO 11/10/2024 with normal biventricular systolic function. Was diuresed once on 11/15. Did not have improvement in breathing. Hold any further diuretics. ? Cardiology consulted, s/p PCI 11/11/2024 with nonocclusive coronary arteries. ? Continue Lovenox 30 mg subcu daily, holding aspirin and statin ? Entresto held due to soft pressures during admission. #Anxiety/depression: Continue home desvenlafaxine, buspirone. #Complex partial seizures: Continue home lamotrigine 150 mg twice daily. #Dementia: Hold home memantine in setting of intubation Tube feeds, titrate to 30ml per hour. Head of bed greater than 30 degrees MiraLAX 17 g daily as needed per tube; last BM this morning Lovenox 30 mg subcu daily ICU/Critical care attestation This patient is critically ill with 43 minutes devoted solely to this patient managing life/organ supporting interventions that required physician assessment. This includes time spent making adjustments in ventilator settings, IV fluid administration, titration of pressors, adjustments of medications, discussion of patient with consultants and other care providers as well as updating patient and/or family (if patient by virtue of his/her condition is unable to participate in decision making). This does not include time spent performing separately billed procedures. Time is not concurrent with that of other providers.
[2024-11-18] MEDS: VASOPRESSIN 40 UNIT in 0.9 % SODIUM CHLORIDE 100 ML 4.59 UNIT IV (13:43)
[2024-11-18 14:45] LABS: POC Glucose,Bedside 184 gm/dL (70-110)
[2024-11-18] MEDS: NOREPINEPHRINE BITARTRATE/D5W 8 MG/250 ML PLAST..BAG 45 MG IV (14:52)
[2024-11-18] MEDS: FENTANYL CITRATE/PF 1,000 MCG in 0.9 % SODIUM CHLORIDE 80 ML 4 MCG IV (15:00)
--- NOTE | 2024-11-18 15:15 | PC.NURSE ---
pt's daughter notified that patient has a bed at [facility].
--- NOTE | 2024-11-18 15:33 | EXP.DC.SUM ---
General Admission date:: 11/12/24 Discharge date: 11/18/24 HPI HPI HPI: This is an 84-year-old male who has a past medical history significant for coronary artery disease with 8 stents (follows with the [facility] [place]/who recently underwent left heart cath and medical management was recommended), COPD, pulmonary hypertension, anxiety, depression, partial seizures, and dementia who presents with a chief complaint of shortness of breath and difficulty breathing with exertion. Patient was recently discharged from our facility due to community-acquired pneumonia and NSTEMI. Patient was discharged home with a follow-up appointment with pulmonology as an outpatient. Unfortunately, patient started to have progressive shortness of air and presented to the emergency room for evaluation. While in the emergency room, room air saturation was 85%. Patient has significant dyspnea while at rest; as a result, hospital medicine was called salted for further management. During my evaluation of the patient, patient states that 1 hour after he got home he attempted to get up and go to the restroom. He was able to go to and from the restroom with minor shortness of breath. On subsequent attempts to go to the restroom, patient had progressive dyspnea with exertion. His dyspnea progressed to shortness of air while at rest. He reports he did use his home nebulizer without any relief of his symptoms. Patient was not discharged home on any home oxygen. He reports no new symptomology only the progressive dyspnea with exertion. He is currently denying any chest pain, lightheadedness, dizziness, fever, chills, rigors, nausea, PND, orthopnea, or diarrhea. Chest x-ray shows moderate mixed interstitial airspace ossifications throughout the left lower lung compatible with pneumonia. Additional lab values obtained include a white blood cell count of 12.7, red blood cell count of 4.1 point, hematocrit 38.3,66 D-dimer of 0.76, creatinine 1.70, GFR of 39, blood glucose of 106, and troponin 0.34. Hospital Course Hospital Course Hospital Course: Kalia Magdaleno is a 84-year-old male with medical history significant for CAD with 8 stents (follows with [facility] [place]), asthma on room air, anxiety/depression, complex partial seizures, dementia who unfortunately presented back to the ED shortly after discharge with shortness of breath. He was discharged in stable condition for treatment of aspiration pneumonia, on room air without respiratory distress and did well at home for a few hours but began feeling short of breath, found to be hypoxic in the ED. Respiratory panel positive for rhino/entero-virus. Met for severe sepsis with tachycardia, leukocytosis, identified infection (pneumonia) with endorgan damage in the setting of respiratory failure. Continue to have worsening or agustin failure necessitating BiPAP and Vapotherm. Unfortunately necessitated further escalation and was intubated on evening of 11/16. Having worse hypotension today. Escalating vasopressors. Failed Lasix challenge last night. Attempting transfer. Currently on waitlist at . Contacting [facility]. Findings consistent with severe ARDS, septic shock, and uric renal failure. Continues to require ICU level care. Pulmonology/CC assisting with care. Problems addressed as follows: #Septic shock #Severe sepsis, present on admission #Acute hypoxic respiratory failure #ARDS #Aspiration pneumonia, Klebsiella pneumonia #Rhino/entero-virus viral pneumonia #Hemoptysis #Asthma ? Sputum culture was positive on 11/10 for Klebsiella. Comprehensive respiratory panel positive 11/12 for rhino/enterovirus. ?Intubated 11/16. ET tube 26 cm at lip. Continue mechanical ventilation with PEEP of 14, rate 24, volume 440, FiO2 45%. Goal sats greater 90%. - Worsening hypotension today. Escalating norepinephrine. Will add vasopressin at 0.03 units/min -Received 250 cc bolus of LR with minimal improvement in blood pressure. -Repeat chest x-ray obtained and reviewed this morning by myself, stable severe ARDS. Persistent bilateral diffuse airspace opacification with increased interstitial markings. -White count improved to 21.9, hemoglobin stable at 10. Platelets 161. -Tube feeds at 30 cc/h -Discussed case with pulmonology, continue broad-spectrum antibiotics with vancomycin, cefepime IV, levofloxacin 750 mg every 48 hours renally dosing. -Continue propofol and fentanyl for sedation. -Continue Levophed for goal MAP greater than 65 ? Repeat limited ECHO 11/17/2024 showed hyperdynamic LV function with LVEF 70%. - Continue oral sodium bicarb 650 mg twice daily, LR at 100 mL/h. ?ET tube aspirate pending for culture - DuoNebs every 6 hours scheduled and Pulmicort twice daily. - CRP down from greater than 320 on 11/14. Level of a 6.7 today #TREVOR on CKD Acute renal failure with anuria ?Baseline creatinine 1.5, renal functioning worsening, increased from creatinine 2.8 yesterday morning to 4.3 this morning. BUN 67. Potassium 5.2. - Lasix challenge 11/17 at 2 mg/kg (160 mg). Had 85 cc of output overnight. Failed challenge. Needs transfer for consideration for dialysis and nephrology consult. #History of CAD with stents #Hypertension ? Extensive coronary disease, and 8 stents in the past. Follows with [facility] [place]. ? ECHO 11/10/2024 with normal biventricular systolic function. Was diuresed once on 11/15. Did not have improvement in breathing. Hold any further diuretics. ? Cardiology consulted, s/p PCI 11/11/2024 with nonocclusive coronary arteries. ? Continue Lovenox 30 mg subcu daily, holding aspirin and statin ? Entresto held due to soft pressures during admission. #Anxiety/depression: Continue home desvenlafaxine, buspirone. #Complex partial seizures: Continue home lamotrigine 150 mg twice daily. #Dementia: Hold home memantine in setting of intubation Tube feeds, titrate to 30ml per hour. Head of bed greater than 30 degrees MiraLAX 17 g daily as needed per tube; last BM this morning Lovenox 30 mg subcu daily Excepted by [facility] for higher level of care due to severe ARDS, septic shock, and uric renal failure. Appreciate their assistance in care. Total time spent on discharge 45 minutes in counseling, documentation, chart review, and direct care with patient. Exam Data for Last 24 hours Vital signs and Labs for Last 24 Hours: Temp Pulse Resp BP Pulse Ox O2 Del Method O2 Flow Rate 97.9 F 103 H 14 111/51 L 92 L Mechanical Ventilation 45 11/18/24 15:00 11/18/24 15:00 11/18/24 15:00 11/18/24 15:00 11/18/24 15:00 11/18/24 15:00 11/18/24 08:00 FiO2 45 11/18/24 15:00 Laboratory Results - last 24 hr 11/16/24 07:23: Legionella pneumophila Ab Non reactive 11/17/24 15:45: VBG pH 7.23 L, VBG pCO2 36.0, VBG pO2 73.5 H, VBG HCO3 14.7 L, VBG Total CO2 15.8 L, VBG O2 Saturation 94.6 H, VBG Base Excess -12.9 L, VBG Lactic Acid 1.5 11/17/24 17:27: VBG pH 7.13 L, VBG pCO2 56.9 H, VBG pO2 141.8 H, VBG HCO3 18.5 L, VBG Total CO2 20.3 L, VBG O2 Saturation 98.7 H, VBG Base Excess -10.7 L, VBG Lactic Acid 1.5, Sodium 139, Potassium 4.9, Chloride 110 H, Carbon Dioxide 18 L, Anion Gap 15.9 H, BUN 58 H, Creatinine 3.50 H D, Estimated Creat Clear 18, Estimated GFR 17 L*, Est GFR ( Amer) 20 L D, Glucose 129 H, Calcium 8.7 11/17/24 17:37: POC Glucose 131 H 11/17/24 19:51: POC Glucose 143 H 11/18/24 05:41: WBC 21.9 H*, RBC 3.20 L, Hgb 10.0 L, Hct 32.1 L, MCV 100.3 H, MCH 31.3 H, MCHC 31.2 L, RDW 17.2, Plt Count 161, MPV 10.2, Neut % (Auto) 92.3 H, Lymph % (Auto) 3.0 L, Casey % (Auto) 3.0, Eos % (Auto) 0.0 L, Baso % (Auto) 0.2, Neut # (Auto) 20.2 H, Lymph # (Auto) 0.7, Casey # (Auto) 0.7, Eos # (Auto) 0.0, Baso # (Auto) 0.0, Total Counted 100, Neutrophils % (Manual) 94 H, Lymphocytes % (Manual) 3 L, Monocytes % (Manual) 3, Platelet Estimate Normal, Macrocytosis 1+, Sodium 139, Potassium 5.2 H, Chloride 108 H, Carbon Dioxide 18 L, Anion Gap 18.2 H, BUN 67 H, Creatinine 4.30 H D, Estimated Creat Clear 15, Estimated GFR 13 L*, Est GFR ( Amer) 16 L*, Glucose 139 H, Calcium 8.1 L, Total Bilirubin 0.7, AST 72 H, ALT 51, Alkaline Phosphatase 148 H, C-Reactive Protein 86.7 H, Total Protein 6.1 L, Albumin 3.1 L, Globulin 3.0, Albumin/Globulin Ratio 1.0 L, Procalcitonin 4.37 H 11/18/24 06:11: POC Glucose 147 H 11/18/24 08:59: VBG pH 7.21 L, VBG pCO2 39.0, VBG pO2 79.3 H, VBG HCO3 15.2 L, VBG Total CO2 16.4 L, VBG O2 Saturation 95.3 H, VBG Base Excess -12.7 L, VBG Lactic Acid 1.4 11/18/24 09:21: POC Glucose 180 H 11/18/24 11:52: Vancomycin Trough 23.2 H 11/18/24 14:38: POC Glucose 184 H I & O for Last 24 hours: Intake & Output 11/15/24 11/16/24 11/17/24 11/18/24 23:59 23:59 23:59 23:59 Intake Total 690 / 690 1906.107 / 5081.948 2490.121 / 2099.121 2161.245 / 2161.245 Output Total 2865 / 3165 839 / 839 145 / 145 36 / 36 Balance -2175 / -2475 1067.107 / 1844.702 1398.121 / 2483.361 3860.245 / 2125.245 Weight 77.111 kg 78.2 kg 79.379 kg 78.9 kg Microbiology Reports for the Last 24 Hours: Microbiology 11/16/24 17:46 Sputum - Endotracheal Tube Aspirate Yeast/Fungus Culture Result 1 - Final Not Reportable 11/16/24 17:46 Sputum - Endotracheal Tube Aspirate Yeast/Fungus Culture Result 2 - Final Not Reportable 11/16/24 17:46 Sputum - Endotracheal Tube Aspirate Yeast/Fungus Culture Result 3 - Final Not Reportable 11/16/24 17:46 Sputum - Endotracheal Tube Aspirate Yeast/Fungus Culture Result 4 - Final Not Reportable 11/16/24 17:46 Sputum - Endotracheal Tube Aspirate Yeast Susceptibility - Final Not Reportable 11/16/24 17:46 Sputum - Endotracheal Tube Aspirate Gram Stain - Final 11/16/24 17:46 Sputum - Endotracheal Tube Aspirate Sputum Culture - Final 11/16/24 13:45 Sputum - Expectorated Sputum Gram Stain - Final Constitutional Constitutional: moderate distress, chronically ill appearing and obtunded *Routine HEENT Exam Head: Present normocephalic Eye: Present EOMI and PERRL ENT: Present mucous membranes moist Comments: ETT 26cm at lip, OG in place *Routine Neck Exam Neck: Present supple; Absent lymphadenopathy *Routine Respiratory Exam Respiratory: Present patient mechanically ventilated, prolonged expiratory phase, respiratory distress, wheezes and diminished air movement; Absent rhonchi or crackles *Routine Cardiovascular Exam Cardiovascular: Present tachycardia *Routine Abdominal Exam Abdominal: Present soft and normoactive bowel sounds; Absent tenderness *Routine Rectal Exam Patient deferred: visual exam *Routine Exam Patient deferred: penile exam (corral in place) *Routine Extremities Exam Extremities: Absent cyanosis, clubbing or edema *Routine Skin Exam Skin: Present intact and warm; Absent rash *Routine Neurological Exam Neurological: Present altered mental status; Absent moving all extremities Comments: sedated Results Data Completed and Pending Labs on day of discharge: Labs from last 24 hours 11/18/24 11/18/24 11/18/24 14:38 11:52 09:21 WBC RBC Hgb Hct MCV MCH MCHC RDW Plt Count MPV Neut % (Auto) Lymph % (Auto) Casey % (Auto) Eos % (Auto) Baso % (Auto) Neut # (Auto) Lymph # (Auto) Casey # (Auto) Eos # (Auto) Baso # (Auto) Total Counted Neutrophils % (Manual) Lymphocytes % (Manual) Monocytes % (Manual) Platelet Estimate Macrocytosis VBG pH VBG pCO2 VBG pO2 VBG HCO3 VBG Total CO2 VBG O2 Saturation VBG Base Excess VBG Lactic Acid Sodium Potassium Chloride Carbon Dioxide Anion Gap BUN Creatinine Estimated Creat Clear Estimated GFR Est GFR ( Amer) Glucose POC Glucose 184 H 180 H Calcium Total Bilirubin AST ALT Alkaline Phosphatase C-Reactive Protein Total Protein Albumin Globulin Albumin/Globulin Ratio Procalcitonin Vancomycin Trough 23.2 H Legionella pneumophila Ab 11/18/24 11/18/24 11/18/24 08:59 06:11 05:41 WBC 21.9 H* RBC 3.20 L Hgb 10.0 L Hct 32.1 L MCV 100.3 H MCH 31.3 H MCHC 31.2 L RDW 17.2 Plt Count 161 MPV 10.2 Neut % (Auto) 92.3 H Lymph % (Auto) 3.0 L Casey % (Auto) 3.0 Eos % (Auto) 0.0 L Baso % (Auto) 0.2 Neut # (Auto) 20.2 H Lymph # (Auto) 0.7 Casey # (Auto) 0.7 Eos # (Auto) 0.0 Baso # (Auto) 0.0 Total Counted 100 Neutrophils % (Manual) 94 H Lymphocytes % (Manual) 3 L Monocytes % (Manual) 3 Platelet Estimate Normal Macrocytosis 1+ VBG pH 7.21 L VBG pCO2 39.0 VBG pO2 79.3 H VBG HCO3 15.2 L VBG Total CO2 16.4 L VBG O2 Saturation 95.3 H VBG Base Excess -12.7 L VBG Lactic Acid 1.4 Sodium 139 Potassium 5.2 H Chloride 108 H Carbon Dioxide 18 L Anion Gap 18.2 H BUN 67 H Creatinine 4.30 H D Estimated Creat Clear 15 Estimated GFR 13 L* Est GFR ( Amer) 16 L* Glucose 139 H POC Glucose 147 H Calcium 8.1 L Total Bilirubin 0.7 AST 72 H ALT 51 Alkaline Phosphatase 148 H C-Reactive Protein 86.7 H Total Protein 6.1 L Albumin 3.1 L Globulin 3.0 Albumin/Globulin Ratio 1.0 L Procalcitonin 4.37 H Vancomycin Trough Legionella pneumophila Ab 11/17/24 11/17/24 11/17/24 19:51 17:37 17:27 WBC RBC Hgb Hct MCV MCH MCHC RDW Plt Count MPV Neut % (Auto) Lymph % (Auto) Casey % (Auto) Eos % (Auto) Baso % (Auto) Neut # (Auto) Lymph # (Auto) Casey # (Auto) Eos # (Auto) Baso # (Auto) Total Counted Neutrophils % (Manual) Lymphocytes % (Manual) Monocytes % (Manual) Platelet Estimate Macrocytosis VBG pH 7.13 L VBG pCO2 56.9 H VBG pO2 141.8 H VBG HCO3 18.5 L VBG Total CO2 20.3 L VBG O2 Saturation 98.7 H VBG Base Excess -10.7 L VBG Lactic Acid 1.5 Sodium 139 Potassium 4.9 Chloride 110 H Carbon Dioxide 18 L Anion Gap 15.9 H BUN 58 H Creatinine 3.50 H D Estimated Creat Clear 18 Estimated GFR 17 L* Est GFR ( Amer) 20 L D Glucose 129 H POC Glucose 143 H 131 H Calcium 8.7 Total Bilirubin AST ALT Alkaline Phosphatase C-Reactive Protein Total Protein Albumin Globulin Albumin/Globulin Ratio Procalcitonin Vancomycin Trough Legionella pneumophila Ab 11/17/24 11/16/24 15:45 07:23 WBC RBC Hgb Hct MCV MCH MCHC RDW Plt Count MPV Neut % (Auto) Lymph % (Auto) Casey % (Auto) Eos % (Auto) Baso % (Auto) Neut # (Auto) Lymph # (Auto) Casey # (Auto) Eos # (Auto) Baso # (Auto) Total Counted Neutrophils % (Manual) Lymphocytes % (Manual) Monocytes % (Manual) Platelet Estimate Macrocytosis VBG pH 7.23 L VBG pCO2 36.0 VBG pO2 73.5 H VBG HCO3 14.7 L VBG Total CO2 15.8 L VBG O2 Saturation 94.6 H VBG Base Excess -12.9 L VBG Lactic Acid 1.5 Sodium Potassium Chloride Carbon Dioxide Anion Gap BUN Creatinine Estimated Creat Clear Estimated GFR Est GFR ( Amer) Glucose POC Glucose Calcium Total Bilirubin AST ALT Alkaline Phosphatase C-Reactive Protein Total Protein Albumin Globulin Albumin/Globulin Ratio Procalcitonin Vancomycin Trough Legionella pneumophila Ab Non reactive DS: Diagnosis Discharge Diagnosis (1) Acute respiratory failure with hypoxia: Status: Acute Code(s): J96.01 - Acute respiratory failure with hypoxia (2) Pneumonia: Status: Acute Code(s): J18.9 - Pneumonia, unspecified organism Qualifiers: Laterality: left Lung location: lower lobe of lung Pneumonia type: due to unspecified organism Qualified Code(s): J18.9 - Pneumonia, unspecified organism (3) Enterovirus infection: Status: Acute Code(s): B34.1 - Enterovirus infection, unspecified (4) Asthma: Status: Acute Code(s): J45.909 - Unspecified asthma, uncomplicated (5) Polyneuropathy: Status: Chronic Code(s): G62.9 - Polyneuropathy, unspecified (6) Dementia: Status: Chronic Code(s): F03.90 - Unspecified dementia, unspecified severity, without behavioral disturbance, psychotic disturbance, mood disturbance, and anxiety Qualifiers: Dementia type: unspecified type Dementia severity: mild Dementia behavioral or psychological symptom: without behavioral, psychotic, or mood disturbance or anxiety Qualified Code(s): F03.A0 - Unspecified dementia, mild, without behavioral disturbance, psychotic disturbance, mood disturbance, and anxiety Problem details: Slowly progressive memory deficit currently on Namenda 10 mg p.o. twice daily. BMI 22.8, weight loss, mild anorexia. He is not a candidate for donezepil at this time (7) COPD (chronic obstructive pulmonary disease): Status: Chronic Code(s): J44.9 - Chronic obstructive pulmonary disease, unspecified Qualifiers: COPD type: emphysema Emphysema type: centrilobular Qualified Code(s): J43.2 - Centrilobular emphysema (8) Neuropathy: Status: Chronic Code(s): G62.9 - Polyneuropathy, unspecified Problem details: Initial diagnosis at [facility]?Dr. Carrion. 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 Brisk reflexes likely due to cervical spondylosis without myelopathy and B12 deficiency 09/30/2023: Right hand weakness with muscle wasting involving intrinsic muscles, (ulnar nerve/C8-T1 dermatome distribution) (9) ILD (interstitial lung disease): Status: Chronic Code(s): J84.9 - Interstitial pulmonary disease, unspecified (10) Klebsiella pneumoniae pneumonia: Status: Acute Code(s): J15.0 - Pneumonia due to Klebsiella pneumoniae (11) On mechanically assisted ventilation: Status: Acute Code(s): Z99.11 - Dependence on respirator [ventilator] status (12) Anuria: Status: Acute Code(s): R34 - Anuria and oliguria (13) CKD (chronic kidney disease), stage III: Status: Chronic Code(s): N18.30 - Chronic kidney disease, stage 3 unspecified Qualifiers: Chronic kidney disease stage 3 subtype: stage 3b (GFR 30-44) Qualified Code(s): N18.32 - Chronic kidney disease, stage 3b (14) TREVOR (acute kidney injury): Status: Acute Code(s): N17.9 - Acute kidney failure, unspecified (15) Seizure disorder: Status: Chronic Code(s): G40.909 - Epilepsy, unspecified, not intractable, without status epilepticus Problem details: Asymptomatic on Lamictal 150 mg twice daily Meds Home Medications and Allergies Home Medications ?Medication ?Instructions ?Recorded ?Confirmed ?Type memantine 10 mg tablet 10 mg PO BID 11/10/24 11/12/24 History Fentanyl Citrate/Pf [Fentanyl 40 mcg/hr IV 11/18/24 Rx 250mcg/5mL Vial] 1,000 mcg IV with Additives 30 mcg/kg/min IV 11/18/24 Rx Vasopressin [Pitressin 20 units/mL 0.03 units/min IV 11/18/24 Rx vial] 40 unit acetaminophen 325 mg tablet 650 mg (2 x 325 mg) PO Q4HP PRN 11/18/24 Rx Fever Or Mild Pain (1-3) #0 tabs brimonidine 0.2 %-timolol 0.5 % 1 drp ophthalmic (eye) BID #0 mL 11/18/24 Rx eye drops budesonide 0.5 mg/2 mL suspension 0.5 mg (2 mL) inhalation BIDRT #0 11/18/24 Rx for nebulization (Pulmicort) mL buspirone 5 mg tablet 5 mg PO BID #0 tabs 11/18/24 Rx cefepime 1 gram solution for 1 g IV Q12H #0 ea 11/18/24 Rx injection diazepam 2 mg tablet 2 mg PO DAILYP PRN Anxiety #0 tabs 11/18/24 Rx enoxaparin 30 mg/0.3 mL 30 mg (0.3 mL) SQ DAILY #0 mL 11/18/24 Rx subcutaneous syringe famotidine (PF) 20 mg/2 mL 20 mg (2 mL) IV BID #0 mL 11/18/24 Rx intravenous solution fentanyl citrate (PF) 50 mcg/mL 12.5 mcg (0.25 mL) IV [id number] PRN 11/18/24 Rx injection solution Achieve Cpot Score < 3 #0 mL ipratropium bromide 0.02 % 0.5 mg (2.5 mL) inhalation Q6RT #0 11/18/24 Rx solution for inhalation mL lamotrigine 100 mg tablet 150 mg (1.5 x 100 mg) PO BID #0 11/18/24 Rx (Lamictal) tabs latanoprost 0.005 % eye drops 1 drp ophthalmic (eye) HS #0 mL 11/18/24 Rx levalbuterol HCl 1.25 mg/3 mL 1.25 mg (3 mL) inhalation Q6RT #0 11/18/24 Rx solution for nebulization mL levofloxacin 500 mg/100 mL in 5 % 500 mg IV Q48H #0 mL 11/18/24 Rx dextrose intravenous piggyback methylprednisolone sod suc(PF) 125 125 mg (2 mL) IV Q12H #0 ea 11/18/24 Rx mg/2 mL solution for injection (Solu-Medrol (PF)) norepinephrine bitartrate 8 mg/250 1 ml IV .Q24H #0 mL 11/18/24 Rx mL (32 mcg/mL) in dextrose 5 % IV polyethylene glycol 3350 17 gram 17 g PO DAILY #0 ea 11/18/24 Rx oral powder packet (HealthyLax) sodium bicarbonate 650 mg tablet 650 mg PO BID #0 tabs 11/18/24 Rx sodium chloride 0.9 % (flush) 10 ml IV NEEDED PRN Maintain Iv 11/18/24 Rx Site #0 mL New Prescriptions to Start Prescriptions: Fentanyl Citrate/Pf [Fentanyl 250mcg/5mL Vial] 1,000 mcg 0.9 % Sodium Chloride [Sod Chlor 0.9% 100mL Bag] 80 ml 40 mcg/hr IV IV with Additives propofoL [Diprivan 10mg/mL 100mL Bottle] 100 ml 30 mcg/kg/min IV Vasopressin [Pitressin 20 units/mL vial] 40 unit 0.9 % Sodium Chloride [Sod Chlor 0.9% 100mL Bag] 100 ml 0.03 units/min IV Allergies Allergy/AdvReac Type Severity Reaction Status Date / Time levetiracetam (From [facility]) AdvReac Severe anger, Verified 10/06/24 14:44 depression, gait disturbance Discharge Plan Disposition Patient Disposition: Xfer Short-Term Hosp Condition: Serious Discharge Order Discharge Orders: Discharge Order (Routine); Ordered 11/18/24 Ordered By: Anton Almazan Follow up Plan Prescriptions/Medication Reconciliation: New sodium chloride 0.9 % (flush) Syringe 10 ml IV NEEDED PRN (Reason: Maintain Iv Site) Qty: 0 0RF acetaminophen 325 mg Tablet 650 mg PO Q4HP PRN (Reason: Fever Or Mild Pain (1-3)) Qty: 0 0RF brimonidine-timolol 0.2-0.5 % Drops 1 drp ophthalmic (eye) BID Qty: 0 0RF budesonide [Pulmicort] 0.5 mg/2 mL Suspension For Nebulization 0.5 mg inhalation BIDRT Qty: 0 0RF buspirone 5 mg Tablet 5 mg PO BID Qty: 0 0RF cefepime 1 gram Recon Soln 1 g IV Q12H Qty: 0 0RF diazepam 2 mg Tablet 2 mg PO DAILYP PRN (Reason: Anxiety) Qty: 0 0RF enoxaparin 30 mg/0.3 mL Syringe 30 mg SQ DAILY Qty: 0 0RF famotidine (PF) 20 mg/2 mL Solution 20 mg IV BID Qty: 0 0RF polyethylene glycol 3350 [HealthyLax] 17 gram Powder In Packet 17 g PO DAILY Qty: 0 0RF sodium bicarbonate 650 mg Tablet 650 mg PO BID Qty: 0 0RF Fentanyl Citrate/Pf [Fentanyl 250mcg/5mL Vial] 1000 MCG 0.9 % Sodium Chloride [Sod Chlor 0.9% 100mL Bag] 80 ML 40 mcg/hr IV Ordered By: Anton Almazan MD Last Taken: 11/18/24 15:00 4 mls/hr Protocol: Critical Care Fentanyl Condition: 1.Initial Dose Dose/Route: Fentanyl IV 25mcg/hr Instruction: Assess CPOT Q1H Condition: 2.CPOT </=2 Dose/Route: Fentanyl IV 25mcg/hr Instruction: Continue at current rate Condition: 3.CPOT >/=3 Dose/Route: Fentanyl 12.5mcg IVP q10min Instruction: Max of 3 doses. Assess CPOT q10min Condition: 4.CPOT remains >/=3 Dose/Route: Titrate rate by 12.5mcg/hr Instruction: Assess CPOT q1h Condition: - Instruction: Repeat 3 & 4 until CPOT </=2 Protocol Text: Decrease rate by 12.5mcg/hr to wean off or if CPOT=0. Notify physician if the target CPOT score is not achieved with dose of 50mcg/hr. Max rate of 200mcg/hr. Desired Titration Parameters CPOT </=2 IV with Additives propofoL [Diprivan 10mg/mL 100mL Bottle] 100 ML 30 mcg/kg/min IV Ordered By: Anton Almazan MD Last Taken: 11/18/24 13:40 14.08 mls/hr Protocol: Propofol 10mg/ml 100ml Condition: Begin infusion Dose/Route: 5 mcg/kg/min Instruction: Titrate by 5mcg/kg/min q 5-10 min Protocol Text: Titrate by 5 mcg/kg/min every 5 to 10 minutes until desired level of sedation. Maximum dose = 100 mcg/kg/min, any dose greater than 50mcg/kg/min must have MD permission Desired Titration Parameters RASS -1 to 1 Vasopressin [Pitressin 20 units/mL vial] 40 UNIT 0.9 % Sodium Chloride [Sod Chlor 0.9% 100mL Bag] 100 ML 0.03 units/min IV Ordered By: Anton Almazan MD Last Taken: 11/18/24 13:43 4.59 mls/hr Protocol: Vasopressin IV Drip Protocol Text: Usual dose: 0.01 units/min to 0.03 units/min. Do not exceed 0.04 units/min (6 ml/hr). TITRATE BY 0.01 UNITS EVERY 10 MINUTES TO SBP>90 Desired Titration Parameters SBP>90 Solu-Medrol (PF) 125 mg/2 mL Recon Soln 125 mg IV Q12H Qty: 0 0RF levofloxacin in D5W 500 mg/100 mL Piggyback 500 mg IV Q48H Qty: 0 0RF latanoprost 0.005 % Drops 1 drp ophthalmic (eye) HS Qty: 0 0RF fentanyl citrate (PF) 50 mcg/mL Solution 12.5 mcg IV [id number] PRN (Reason: Achieve Cpot Score < 3) Qty: 0 0RF levalbuterol HCl 1.25 mg/3 mL Solution For Nebulization 1.25 mg inhalation Q6RT Qty: 0 0RF lamotrigine [Lamictal] 100 mg Tablet 150 mg PO BID Qty: 0 0RF ipratropium bromide 0.02 % Solution 0.5 mg inhalation Q6RT Qty: 0 0RF norepinephrine bitartrate-D5W 8 mg/250 mL (32 mcg/mL) Solution 1 ml IV .Q24H Qty: 0 0RF Discontinued cholecalciferol (vitamin D3) 25 mcg (1,000 unit) capsule 25 mcg PO DAILY sildenafil (pulm.hypertension) 20 mg tablet 20 mg PO DIRECTED PRN (Reason: sexual activity) Qty: 40 2RF gabapentin [Neurontin] 300 mg capsule 300 mg PO HS Qty: 30 2RF lamotrigine 100 mg tablet 150 mg PO BID Qty: 270 3RF aspirin [Adult Low Dose Aspirin] 81 mg tablet,delayed release (DR/EC) 81 mg PO DAILY latanoprost 0.005 % drops 1 drp Eye-Both HS Patient Comments: instill 1 DROP IN EACH EYE EVERY NIGHT buspirone 5 mg tablet 5 mg PO BID diazepam 2 mg tablet 2 mg PO DAILY PRN (Reason: Anxiety) Patient Comments: TAKE ONE TABLET BY MOUTH EVERY DAY NEEDED FOR anxiety/agitation/sleeplessness MAY CAUSE DROWSINESS brimonidine 0.2 % drops 1 drp Eye-Both BID Patient Comments: INSTILL ONE DROP IN EACH EYE TWICE DAILY desvenlafaxine succinate 50 mg tablet extended release 24 hr 50 mg PO DAILY fluticasone propion-salmeterol 250-50 mcg/dose blister with device 1 inh inhalation BID 90 Days Qty: 180 3RF sacubitril-valsartan 24-26 mg tablet 1 tab PO BID trazodone 50 mg tablet 100 mg PO HS PRN (Reason: Sleep) Patient Comments: TAKE 1-2 TABLET(S) BY MOUTH EVERY DAY AT BEDTIME FOR SLEEP atorvastatin 40 mg tablet 40 mg PO HS ondansetron 4 mg tablet,disintegrating 4 mg PO Q8 PRN (Reason: Nausea And Vomiting) Patient Comments: Dissolve one tablet in mouth every 8 hours as needed for nausea and vomiting albuterol sulfate 90 mcg/actuation HFA aerosol inhaler 2 inh inhalation Q4HP PRN (Reason: shortness of breath or wheezing) levofloxacin 750 mg tablet 750 mg PO Q48H 4 Days Qty: 2 0RF No Action memantine 10 mg tablet 10 mg PO BID Problem Reconciliation Problems Reviewed?: Yes Patient Discharge Instructions ACTIVITY: Continue current activity DIET: continue same diet Patient Instructions: DI for Pneumonia in Adults, DI for Respiratory Failure, Stop Light Pneumonia Print Language: Hungarian Providers Primary Care Provider: Hattie Dorman Admit Provider: Ravinder Cortes Attending Provider: Ravinder Cortes
--- NOTE | 2024-11-18 17:35 | PC.NURSE ---
left ICU with EMS personnel at [id number]
--- NOTE | 2024-11-18 18:03 | PC.NURSE ---
Pt belongings that were left in patient room and one prescription left in med bin handed to pt's daughter theo
--- NOTE | 2024-11-18 18:14 | PC.NURSE ---
Patient's family called back over to the ICU about the patients home meds that they state were left in the unit. room was checked and so was the med bin. No meds were found.
[2024-11-20 15:11] LABS: Clinical Relevance Notes (.); Fungitell Value < 31.25 pg/mL (.); Interpretation Notes (.)
== END 2024-11-18 17:32 | disposition home or self-care (01) | DRG 871 ==
LOC: ER 23:22 → 2ND 11-12 00:35 → ICU 11-12 20:09
PROVIDERS: Internal Medicine; Internal Medicine Adolescent Medicine; Internal Medicine Pulmonary Disease; Nurse Practitioner Family; Pediatrics; Admitting Provider Student in an Organized Health Care Education/Training Program; Emergency Provider Emergency Medicine; PCP Physician Assistant; Visit Provider Student in an Organized Health Care Education/Training Program
DX: A41.9 Sepsis, unspecified organism (principal); J12.89 Other viral pneumonia; R65.21 Severe sepsis with septic shock; J15.0 Pneumonia due to Klebsiella pneumoniae; J69.0 Pneumonitis due to inhalation of food and vomit; J80 Acute respiratory distress syndrome; N17.0 Acute kidney failure with tubular necrosis; J44.0 Chronic obstructive pulmonary disease with (acute) lower respiratory infection; R04.2 Hemoptysis; G40.209 Localization-related (focal) (partial) symptomatic epilepsy and epileptic syndromes with complex partial seizures, not intractable, without status epilepticus; J84.9 Interstitial pulmonary disease, unspecified; J44.1 Chronic obstructive pulmonary disease with (acute) exacerbation; E87.20 Acidosis, unspecified; I25.10 Atherosclerotic heart disease of native coronary artery without angina pectoris; F41.9 Anxiety disorder, unspecified; F32.A Depression, unspecified; I12.9 Hypertensive chronic kidney disease with stage 1 through stage 4 chronic kidney disease, or unspecified chronic kidney disease; F03.A0 Unspecified dementia, mild, without behavioral disturbance, psychotic disturbance, mood disturbance, and anxiety; J43.2 Centrilobular emphysema; N18.32 Chronic kidney disease, stage 3b; M47.812 Spondylosis without myelopathy or radiculopathy, cervical region; G62.9 Polyneuropathy, unspecified; E53.8 Deficiency of other specified B group vitamins; E87.5 Hyperkalemia; I25.2 Old myocardial infarction; B97.10 Unspecified enterovirus as the cause of diseases classified elsewhere; B97.89 Other viral agents as the cause of diseases classified elsewhere; R34 Anuria and oliguria; R79.89 Other specified abnormal findings of blood chemistry; R27.0 Ataxia, unspecified; I27.20 Pulmonary hypertension, unspecified; G47.33 Obstructive sleep apnea (adult) (pediatric); Z95.5 Presence of coronary angioplasty implant and graft; Z79.82 Long term (current) use of aspirin; Z79.899 Other long term (current) drug therapy; Z88.8 Allergy status to other drugs, medicaments and biological substances; Z87.891 Personal history of nicotine dependence; Z86.73 Personal history of transient ischemic attack (TIA), and cerebral infarction without residual deficits
CPT/HCPCS: 0223U; 36415; 36600; 51702; 71045; 71275; 80048; 80053; 80202; 81001; 82533; 82803; 82962; 83605; 83615; 83735; 83880; 84145; 84484; 85007; 85025; 85378; 85651; 86140; 86713; 86787; 87040; 87070; 87106; 87205; 87449; 87641; 89220; 93005; 93308; 94002; 94003; 94640; 94660; 94760; 94761; 97162; 97166; 97530; 99285; J0330; J0692; J1308; J1644; J1650; J1720; J1938; J1956; J2185; J2405; J2598; J2704; J2919; J3010; J3360; J3373; J3375; J7050; J7070; J7120; J7614; Q9967